=== PATIENT | female | born 1930 | race Caucasian/White ===

== ENCOUNTER 2016-05-31 09:18 | Inpatient (IN) | payer MEDICARE ==
[2016-05-31] MEDS ORDERED: NACL 0.9% 1000 ML 1,000 ML IV ONE (10:08)
--- NOTE | 2016-05-31 10:59 | XRay Report ---
Single view chest: History: Altered mental status/post sepsis. Findings: Marked cardiomegaly. Trachea is midline. Minimal bilateral pleural effusion. Linear density right lower lobe probably related to scarring or discoid atelectasis. Impression: Nonspecific findings. Early CHF cannot be excluded.
[2016-05-31 11:12] LABS: Bilirubin,Urine NEG (Negative); Blood,Urine MOD (Negative); Ketones,Urine NEG (Negative); Leukocyte Esterase,Urine TR (Negative); Mucus,Urine FEW /HPF; Nitrite,Urine POS (Negative); Urobilinogen,Urine < 2.0 mg/dL (<2.0)
--- NOTE | 2016-05-31 11:37 | Cat Scan Report ---
Cranial CT without contrast. History: Altered metal status. Findings: There is no evidence of acute hemorrhage or infarct. There is encephalomalacia/chronic infarct in the right temporal and parietal lobes. Cortical atrophy is present. There are hypodensities in the periventricular white matter bilaterally. Chronic lacunar infarcts are seen in the basal ganglia bilaterally. There are no masses or extra-axial collections. The posterior fossa is unremarkable for age. The bony calvarium is unremarkable. Impression: No acute findings. 2. Extensive chronic changes including large chronic right MCA territory infarct, multiple bilateral lacunar infarcts and chronic periventricular white matter ischemic changes.
[2016-05-31 11:49] LABS: INR 1.33 (0.87-1.13)
[2016-05-31 11:50] LABS: Partial Thromboplastin Time 26.6 Sec. (24.2-36.6)
[2016-05-31 11:58] LABS: Basophils % (Auto) 0.2 % (0.0-1.8); Mean Corpuscular HGB Conc 30 % (30-34); Mean Corpuscular Volume 83 fl (79-97); Red Blood Count 3.49 M/mm3 (3.65-5.03); White Blood Count 18.3 K/mm3 (4.5-11.0)
[2016-05-31 12:10] LABS: Hemoglobin 8.6 gm/dl (10.1-14.3)
[2016-05-31 12:11] LABS: Albumin 3.3 g/dL (3.9-5); Albumin/Globulin Ratio 0.9 %; Calcium 8.5 mg/dL (8.4-10.2); Chloride 102.8 mmol/L (98-107); Hematocrit 28.8 % (30.3-42.9); Mean Corpuscular Hemoglobin 25 pg (28-32); Potassium 4.4 mmol/L (3.6-5.0); Red Cell Distribution Width 21.3 % (13.2-15.2)
[2016-05-31 12:12] LABS: Platelet Count 205 K/mm3 (140-440)
[2016-05-31 12:21] LABS: Creatine Kinase 173 units/L (30-135)
--- NOTE | 2016-05-31 12:33 | Emergency Department Report ---
ED Altered Mental Status HPI - General Chief Complaint: Altered Mental Status Stated Complaint: NAUSEA/VOMITTING/GENERAL MALAISE Time Seen by Provider: 05/31/16 09:44 Source: EMS Mode of arrival: Stretcher Limitations: Language Barrier, Altered Mental Status - Related Data Home Medications Medication Instructions Recorded Confirmed Last Taken Dabigatran [Pradaxa] 150 mg PO BID 05/31/16 05/31/16 Unknown Diphenoxylate/Atropine 0.025 - 2.5 mg PO Q6HR 05/31/16 05/31/16 Unknown Losartan [Cozaar] 100 mg PO QDAY 05/31/16 05/31/16 Unknown Ondansetron [Zofran TAB] 4 mg PO Q8HR PRN 05/31/16 05/31/16 Unknown Previous Rx's Medication Instructions Recorded Last Taken Type Ondansetron [Zofran TAB] 4 mg PO Q8HR PRN #20 tablet 05/28/16 Unknown Rx Carvedilol [Coreg] 6.25 mg PO BID #60 tablet 06/06/16 Unknown Rx Famotidine [Pepcid] 20 mg PO BID #60 tablet 06/06/16 Unknown Rx Furosemide [Lasix TAB] 40 mg PO QDAY #7 tablet 06/06/16 Unknown Rx Losartan [Cozaar] 50 mg PO QDAY #30 tablet 06/06/16 Unknown Rx Potassium Chloride [Klor-Con] 20 meq PO DAILY #10 packet 06/06/16 Unknown Rx Simvastatin [Zocor TAB] 20 mg PO QHS #30 tablet 06/06/16 Unknown Rx Allergies Allergy/AdvReac Type Severity Reaction Status Date / Time No Known Allergies Allergy Unverified 05/31/16 10:04 ED Review of Systems ROS: Stated complaint: NAUSEA/VOMITTING/GENERAL MALAISE Other details as noted in HPI ED Past Medical Hx - Past Medical History Previous Medical History?: Yes Additional medical history: unable to assess - Surgical History Past Surgical History?: Yes Additional Surgical History: unable to assess - Social History Smoking Status: Unknown if ever smoked Substance Use Type: None - Medications Home Medications: Home Medications Medication Instructions Recorded Confirmed Last Taken Type Ondansetron [Zofran TAB] 4 mg PO Q8HR PRN #20 tablet 05/28/16 06/07/16 Unknown Rx Dabigatran [Pradaxa] 150 mg PO BID 05/31/16 05/31/16 Unknown History Diphenoxylate/Atropine 0.025 - 2.5 mg PO Q6HR 05/31/16 05/31/16 Unknown History Losartan [Cozaar] 100 mg PO QDAY 05/31/16 05/31/16 Unknown History Ondansetron [Zofran TAB] 4 mg PO Q8HR PRN 05/31/16 05/31/16 Unknown History Carvedilol [Coreg] 6.25 mg PO BID #60 tablet 06/06/16 Unknown Rx Famotidine [Pepcid] 20 mg PO BID #60 tablet 06/06/16 Unknown Rx Furosemide [Lasix TAB] 40 mg PO QDAY #7 tablet 06/06/16 Unknown Rx Losartan [Cozaar] 50 mg PO QDAY #30 tablet 06/06/16 Unknown Rx Potassium Chloride [Klor-Con] 20 meq PO DAILY #10 packet 06/06/16 Unknown Rx Simvastatin [Zocor TAB] 20 mg PO QHS #30 tablet 06/06/16 Unknown Rx ED Physical Exam - General Limitations: Language Barrier, Altered Mental Status General appearance: in no apparent distress, lethargic - Head Head exam: Present: atraumatic, normocephalic, normal inspection - Eye Eye exam: Present: normal appearance - ENT ENT exam: Present: mucous membranes moist - Neck Neck exam: Present: normal inspection - Respiratory Respiratory exam: Present: normal lung sounds bilaterally. Absent: respiratory distress - Cardiovascular Cardiovascular Exam: Present: regular rate, tachycardia, irregular rhythm. Absent: systolic murmur, diastolic murmur, rubs, gallop - Extremities Exam Extremities exam: Present: normal inspection - Back Exam Back exam: Present: normal inspection - Neurological Exam Neurological exam: Present: alert, oriented X3 - Skin Skin exam: Present: warm, dry, intact, normal color. Absent: rash ED Course Vital Signs 05/31/16 05/31/16 05/31/16 09:39 11:06 11:10 Temperature 98.4 F Pulse Rate 113 H 95 H Respiratory 22 21 22 Rate Blood Pressure 140/97 166/95 Blood Pressure 140/97 [Right] O2 Sat by Pulse 93 100 100 Oximetry 05/31/16 05/31/16 05/31/16 11:20 11:30 11:40 Temperature Pulse Rate Respiratory 22 24 23 Rate Blood Pressure 155/109 155/109 155/109 Blood Pressure [Right] O2 Sat by Pulse 100 99 100 Oximetry 05/31/16 05/31/16 05/31/16 11:50 12:00 12:10 Temperature Pulse Rate Respiratory 27 H 23 29 H Rate Blood Pressure 155/109 155/109 155/94 Blood Pressure [Right] O2 Sat by Pulse 100 100 100 Oximetry 05/31/16 05/31/16 05/31/16 12:20 12:30 12:40 Temperature Pulse Rate 101 H Respiratory 20 25 H 25 H Rate Blood Pressure 152/87 152/87 173/86 Blood Pressure [Right] O2 Sat by Pulse 99 100 95 Oximetry 05/31/16 05/31/16 05/31/16 12:50 13:00 13:10 Temperature Pulse Rate Respiratory 21 22 23 Rate Blood Pressure 182/92 182/92 174/100 Blood Pressure [Right] O2 Sat by Pulse 98 99 Oximetry 05/31/16 05/31/16 05/31/16 13:20 13:30 13:50 Temperature Pulse Rate 105 H Respiratory 24 19 31 H Rate Blood Pressure 179/92 179/92 172/111 Blood Pressure [Right] O2 Sat by Pulse 96 98 99 Oximetry 05/31/16 05/31/16 05/31/16 14:53 15:01 15:35 Temperature Pulse Rate 115 H Respiratory 26 H 27 H 22 Rate Blood Pressure 158/88 155/96 Blood Pressure [Right] O2 Sat by Pulse 98 99 99 Oximetry - Lab Data Result diagrams: 06/05/16 04:55 06/05/16 04:55 Lab Results 05/31/16 05/31/16 05/31/16 Range/Units 10:46 10:56 10:56 WBC (4.5-11.0) K/mm3 RBC (3.65-5.03) M/mm3 Hgb (10.1-14.3) gm/dl Hct (30.3-42.9) % MCV (79-97) fl MCH (28-32) pg MCHC (30-34) % RDW (13.2-15.2) % Plt Count (140-440) K/mm3 Lymph % (Auto) (13.4-35.0) % [place] % (Auto) (0.0-7.3) % Eos % (Auto) (0.0-4.3) % Baso % (Auto) (0.0-1.8) % Lymph # (1.2-5.4) K/mm3 [place] # (0.0-0.8) K/mm3 Eos # (0.0-0.4) K/mm3 Baso # (0.0-0.1) K/mm3 Seg Neutrophils % (40.0-70.0) % Seg Neutrophils # (1.8-7.7) K/mm3 PT 16.4 H (12.2-14.9) Sec. INR 1.33 H (0.87-1.13) APTT 26.6 (24.2-36.6) Sec. Sodium (137-145) mmol/L Potassium (3.6-5.0) mmol/L Chloride (98-107) mmol/L Carbon Dioxide (22-30) mmol/L Anion Gap mmol/L BUN (7-17) mg/dL Creatinine (0.7-1.2) mg/dL Estimated GFR ml/min BUN/Creatinine Ratio % Glucose (65-100) mg/dL Calcium (8.4-10.2) mg/dL Total Bilirubin (0.1-1.2) mg/dL AST (5-40) units/L ALT (7-56) units/L Alkaline Phosphatase (35-129) units/L Ammonia (25-60) umol/L Total Creatine Kinase (30-135) units/L Troponin T (0.00-0.029) ng/mL Total Protein (6.3-8.2) g/dL Albumin (3.9-5) g/dL Albumin/Globulin Ratio % TSH 0.869 (0.270-4.200) mlU/mL Urine Color [place] (Yellow) Urine Turbidity Clear (Clear) Urine pH 5.0 (5.0-7.0) Ur Specific [place] 1.023 (1.003-1.030) Urine Protein 30 mg/dl (Negative) mg/dL Urine Glucose (UA) Neg (Negative) mg/dL Urine Ketones Neg (Negative) mg/dL Urine Blood Mod (Negative) Urine Nitrite Pos (Negative) Urine Bilirubin Neg (Negative) Urine Urobilinogen < 2.0 (<2.0) mg/dL Ur Leukocyte Esterase Tr (Negative) Urine WBC (Auto) 6.0 (0.0-6.0) /HPF Urine RBC (Auto) 6.0 (0.0-6.0) /HPF Urine Mucus Few /HPF 05/31/16 05/31/16 05/31/16 Range/Units 11:41 11:41 11:41 WBC 18.3 H (4.5-11.0) K/mm3 RBC 3.49 L (3.65-5.03) M/mm3 Hgb 8.6 L (10.1-14.3) gm/dl Hct 28.8 L (30.3-42.9) % MCV 83 (79-97) fl MCH 25 L (28-32) pg MCHC 30 (30-34) % RDW 21.3 H (13.2-15.2) % Plt Count 205 (140-440) K/mm3 Lymph % (Auto) 7.9 L (13.4-35.0) % [place] % (Auto) 5.2 (0.0-7.3) % Eos % (Auto) 0.0 (0.0-4.3) % Baso % (Auto) 0.2 (0.0-1.8) % Lymph # 1.5 (1.2-5.4) K/mm3 [place] # 1.0 H (0.0-0.8) K/mm3 Eos # 0.0 (0.0-0.4) K/mm3 Baso # 0.0 (0.0-0.1) K/mm3 Seg Neutrophils % 86.7 H (40.0-70.0) % Seg Neutrophils # 15.8 H (1.8-7.7) K/mm3 PT (12.2-14.9) Sec. INR (0.87-1.13) APTT (24.2-36.6) Sec. Sodium 138 (137-145) mmol/L Potassium 4.4 (3.6-5.0) mmol/L Chloride 102.8 (98-107) mmol/L Carbon Dioxide 20 L (22-30) mmol/L Anion Gap 20 mmol/L BUN 18 H (7-17) mg/dL Creatinine 0.9 (0.7-1.2) mg/dL Estimated GFR 59 ml/min BUN/Creatinine Ratio 20.00 % Glucose 153 H (65-100) mg/dL Calcium 8.5 (8.4-10.2) mg/dL Total Bilirubin 1.0 (0.1-1.2) mg/dL AST 28 (5-40) units/L ALT 11 (7-56) units/L Alkaline Phosphatase 82 (35-129) units/L Ammonia (25-60) umol/L Total Creatine Kinase 173 H (30-135) units/L Troponin T < 0.010 (0.00-0.029) ng/mL Total Protein 7.0 (6.3-8.2) g/dL Albumin 3.3 L (3.9-5) g/dL Albumin/Globulin Ratio 0.9 % TSH (0.270-4.200) mlU/mL Urine Color (Yellow) Urine Turbidity (Clear) Urine pH (5.0-7.0) Ur Specific [place] (1.003-1.030) Urine Protein (Negative) mg/dL Urine Glucose (UA) (Negative) mg/dL Urine Ketones (Negative) mg/dL Urine Blood (Negative) Urine Nitrite (Negative) Urine Bilirubin (Negative) Urine Urobilinogen (<2.0) mg/dL Ur Leukocyte Esterase (Negative) Urine WBC (Auto) (0.0-6.0) /HPF Urine RBC (Auto) (0.0-6.0) /HPF Urine Mucus /HPF /11/09 Range/Units 11:41 WBC (4.5-11.0) K/mm3 RBC (3.65-5.03) M/mm3 Hgb (10.1-14.3) gm/dl Hct (30.3-42.9) % MCV (79-97) fl MCH (28-32) pg MCHC (30-34) % RDW (13.2-15.2) % Plt Count (140-440) K/mm3 Lymph % (Auto) (13.4-35.0) % [place] % (Auto) (0.0-7.3) % Eos % (Auto) (0.0-4.3) % Baso % (Auto) (0.0-1.8) % Lymph # (1.2-5.4) K/mm3 [place] # (0.0-0.8) K/mm3 Eos # (0.0-0.4) K/mm3 Baso # (0.0-0.1) K/mm3 Seg Neutrophils % (40.0-70.0) % Seg Neutrophils # (1.8-7.7) K/mm3 PT (12.2-14.9) Sec. INR (0.87-1.13) APTT (24.2-36.6) Sec. Sodium (137-145) mmol/L Potassium (3.6-5.0) mmol/L Chloride (98-107) mmol/L Carbon Dioxide (22-30) mmol/L Anion Gap mmol/L BUN (7-17) mg/dL Creatinine (0.7-1.2) mg/dL Estimated GFR ml/min BUN/Creatinine Ratio % Glucose (65-100) mg/dL Calcium (8.4-10.2) mg/dL Total Bilirubin (0.1-1.2) mg/dL AST (5-40) units/L ALT (7-56) units/L Alkaline Phosphatase (35-129) units/L Ammonia 20.0 L (25-60) umol/L Total Creatine Kinase (30-135) units/L Troponin T (0.00-0.029) ng/mL Total Protein (6.3-8.2) g/dL Albumin (3.9-5) g/dL Albumin/Globulin Ratio % TSH (0.270-4.200) mlU/mL Urine Color (Yellow) Urine Turbidity (Clear) Urine pH (5.0-7.0) Ur Specific [place] (1.003-1.030) Urine Protein (Negative) mg/dL Urine Glucose (UA) (Negative) mg/dL Urine Ketones (Negative) mg/dL Urine Blood (Negative) Urine Nitrite (Negative) Urine Bilirubin (Negative) Urine Urobilinogen (<2.0) mg/dL Ur Leukocyte Esterase (Negative) Urine WBC (Auto) (0.0-6.0) /HPF Urine RBC (Auto) (0.0-6.0) /HPF Urine Mucus /HPF - EKG Data -: EKG Interpreted by Me Rate: tachycardia, bradycardia When compared to previous EKG there are: previous EKG unavailable Interpretation: no acute changes Critical care attestation.: If time is entered above; I have spent that time in minutes in the direct care of this critically ill patient, excluding procedure time. ED Disposition Clinical Impression: Dehydration, Altered mental status Disposition: OP ADMITTED IP TO THIS HOSP Is pt being admited?: Yes Does the pt Need Aspirin: No Condition: Fair
--- NOTE | 2016-05-31 12:48 | Admit Criteria Form ---
Admission Criteria Documentation: MENTAL STATUS CHANGE Clinical Indications for Inpatient Care (Place 'X' for any and all applicable criteria): Ongoing inpatient care may be needed for ANY ONE of the following(1)(2)(3)(5)(6) : [X ]I. Suspected serious etiology (eg, medical disorder, TELECOMMUNICATOR event) of mental status change [ ]II. Danger to self or others not manageable at lower level of care [ ]III. Grave disability (eg, inability to perform self care necessary at lower level of care) [ ]IV. Agitation or inappropriate behavior interfering with care for primary condition (eg, attempting to discontinue lines or drains prematurely, unable to cooperate with respiratory care) [ ]V. Delirium [A] [D][E] as described by ANY ONE of the following(26): [ ]a) Delirium due to alcohol or sedative [F] withdrawal [ ]b) Delirium of uncertain etiology that has not responded to appropriate empiric treatment [ ]c) Delirium that prevents performance of a life-sustaining function (eg, feeding or hydrating oneself) [X ]. General contraindications and/or Inappropriate clinical situations for Observational Care in patients with Mental Status Change, when ANY ONE of the following is required: [X ]a) Prediction of prolongation of LOS based on ANY ONE of the following may be considered as a contraindication for observational care 2, 3, 4, 5, 6, 7, 8, 9, 10, 11 [X]i) Age > 65 yrs. [X ]ii) Patient arriving by ambulance [ ]iii) Patient with high acuity [ ]iv) Patient requiring vital sign monitoring [ ]v) Patient on IV medication [ ]b) Systolic blood pressures 180mmHg 3,12 [ ]c) Patient with altered mental status including delirium and other alteration of consciousness, (3) [ ]d) Patient whose discharge disposition will be to a fdc home or rehabilitation home should not be managed in Emergency Department Observation Unit. CMS rule requires 3 days hospital stay before such placement.3,13 [ ]e) Patient with failure to thrive due to broad array of etiologies 3,16,17 [ ]f) Inability to ambulate 3,14 Extended stay beyond goal length of stay for the primary condition may be needed until ALL of the following are present(3)(5): [ ]a) Underlying medical etiology of mental status change is absent, or has been established and adequately treated [ ]b) Danger to self or others is absent or manageable at lower level of care. [ ]c) Behavior crisis management, including physical or chemical restraints, is not required or available at lower level of car [ ]d) Substance or alcohol withdrawal is absent or manageable at lower level of care. [ ]e) Behavioral symptoms (eg, agitation, somnolence, inappropriate behavior) are absent, or are manageable at lower level of care. The original [facility] [employer] content created by [facility] [employer] has been revised. The portions of the content which have been revised are identified through the use of italic text or in bold, and [facility] has neither reviewed nor approved the modified material. All other unmodified content is copyright [facility]. Please see references footnoted in the original [facility] edition 2016 Admission Criteria Met: Yes
[2016-05-31] MEDS: ATIVAN IV PRN (23:59)
[2016-06-01] MEDS ORDERED: SODIUM CHLORIDE FLUSH SYRINGE 10 ML IV PRN (03:43)
[2016-06-01] MEDS ORDERED: TYLENOL #3 PO PRN (07:47)
[2016-06-01] MEDS ORDERED: NON-FORMULARY (Zolpidem Tartrate [Edluar Subl] 10 MG) SL PRN (07:47)
[2016-06-01] MEDS ORDERED: ZOFRAN PO PRN (07:47)
--- NOTE | 2016-06-01 07:51 | Event Note ---
Date: 05/31/16 See H/p in reports AMS CVA?? HTN A Fib on pradaxa Leukocytosis
--- NOTE | 2016-06-01 09:13 | History and Physical Report ---
CHIEF COMPLAINT: Altered mental status. HISTORY OF PRESENT ILLNESS: An 85-year-old female with language barrier, comes in for generalized weakness and nausea and vomiting. Much history could not be obtained and the patient in the bed, alert, but confused. The patient with altered sensorium. As per family, she may have weakness on the left side. PAST MEDICAL HISTORY: Significant for hypertension and atrial fibrillation. Questionable C. diff colitis as the patient is on metronidazole. PAST SURGICAL HISTORY: Unknown. SOCIAL HISTORY: Does not smoke. Obtained by sign language. FAMILY HISTORY: Unknown. REVIEW OF SYSTEMS: Significant for left side slight weakness present. Able to move all 4 extremities in the ER. Confused. No fever, no chills. Otherwise, review of systems is negative. Language barrier present. A 14-point review of system was done. PHYSICAL EXAMINATION: GENERAL: Elderly female lying in bed, alert, but confused. VITAL SIGNS: Blood pressure is 159/112, temperature is 97.7, pulse is 114, respiratory rate is 20, sats are 98%. HEENT: Unremarkable. No facial palsy. NECK: Supple, no lymphadenopathy, no thyromegaly. LUNGS: Clear to auscultation and percussion. Good air entry. CARDIOVASCULAR: S1, S2 heard. Irregular heart rate. No murmur. LUNGS: Clear to auscultation and percussion. ABDOMEN: Soft and benign. No hepatosplenomegaly. No guarding, no rigidity. Hernial orifices are normal. EXTREMITIES: Good pedal pulses. No pedal edema. CENTRAL NERVOUS SYSTEM: Alert, but confused. Able to move all 4 extremities. As per the family, there is some weakness on the left side. SKIN: Normal. LABORATORY DATA: Significant for white count of 18,300, H is 8.6 and 28.8, platelet count is 205,000. Protime is 16.4. INR is 1.33. Sodium is 138, potassium is 4.4, chloride is 102.8, BUN and creatinine 18 and 0.9. Lactic acid is 2.9. Total creatinine kinase is 173. Ammonia level 20. Albumin is 3.3. Urine is negative. CAT scan of the head shows extensive chronic changes including last chronic right MCA territory infarct. Multiple bilateral lacunar infarcts and chronic periventricular white matter ischemic changes. A chest x-ray shows nonspecific findings. Early CHF cannot be excluded. Linear intensity in the right lower lobe probably related to scarring or discoid atelectasis. ASSESSMENT AND PLAN: 1. Altered mental status, rule out cerebrovascular accident. The patient may be having left-sided weakness which has resolved. MRI, MRA, and carotid duplex scan and echocardiogram ordered. 2. Acute cerebrovascular accident versus transient ischemic attack. The patient moves all 4 extremities. Unclear about possible transient ischemic attack or acute cerebrovascular accident. Neurology consult requested. MRI, MRA, echocardiogram, and carotid duplex scan ordered. 3. Leukocytosis. Focus of infection not identified. Urine negative. Chest x-ray negative. No fever, no temperature. The patient is on metronidazole from home, unclear whether the patient has C. diff colitis. The patient to be started on IV Levaquin for broad spectrum coverage. We will defer to the hospitalist to change the antibiotics or stop the antibiotics. 4. Chronic atrial fibrillation. The EKG shows tachycardia . The patient on Pradaxa, which was continued. Unclear whether the patient has chronic AFib. 5. Hypertension. Continue losartan 100 mg daily. 6. Deep venous thrombosis prophylaxis. The patient on Pradaxa. SCDs for the time being. No Lovenox. JOB# [id number] VSM/NTS
[2016-06-01 09:39] LABS: Hematocrit 26.3 % (30.3-42.9); Hemoglobin 8.1 gm/dl (10.1-14.3); Mean Corpuscular HGB Conc 31 % (30-34); Mean Corpuscular Volume 80 fl (79-97); Platelet Count 217 K/mm3 (140-440); Red Blood Count 3.28 M/mm3 (3.65-5.03); White Blood Count 12.3 K/mm3 (4.5-11.0)
[2016-06-01 09:41] LABS: Mean Corpuscular Hemoglobin 25 pg (28-32); Red Cell Distribution Width 21.3 % (13.2-15.2)
[2016-06-01 09:48] LABS: Anion Gap 18 mmol/L; Blood Urea Nitrogen 14 mg/dL (7-17); Calcium 8.3 mg/dL (8.4-10.2); Carbon Dioxide 22 mmol/L (22-30); Chloride 103.6 mmol/L (98-107); Glucose 122 mg/dL (65-100); Potassium 4.3 mmol/L (3.6-5.0); Sodium 139 mmol/L (137-145)
[2016-06-01] MEDS ORDERED: LOVENOX SUB-Q SCH (10:00)
[2016-06-01] MEDS ORDERED: NON-FORMULARY (Losartan [Cozaar] 100 MG) PO SCH (10:00)
[2016-06-01 10:18] LABS: Anisocytosis 2+; Blastocytes % (Manual) 0 %; Hypochromasia 1+
[2016-06-01 10:19] LABS: Diff Status Complete; Giant Platelets Rare; Large Platelets Few; Platelet Estimate Cons; Polychromasia Rare
--- NOTE | 2016-06-01 10:35 | Consultation ---
History of Present Illness Consult date: 06/01/16 Requesting physician: MATHIEU MUSA Reason for Consult: AMS/TIA Chief complaint: AMS limits direct hx History of present illness: 85 YO F Hx Afib on Pradaxa a/w AMS. Last well 05/27 but was noted to be weak all over, confused and vomiting on 05/28. She was taken to ED and D/C. They represented with family d/t persistent sx. There are no clear aggravating, relieving or temporal factors. Severity limits ADLs. Past History Past Medical History: atrial fib, hypertension Past Surgical History: No surgical history Social history: single, Lives alone. denies: smoking, alcohol abuse, prescription drug abuse, IV drug use Family history: no significant family history Medications and Allergies Allergies Allergy/AdvReac Type Severity Reaction Status Date / Time No Known Allergies Allergy Unverified 05/31/16 10:04 Home Medications Medication Instructions Recorded Confirmed Last Taken Type Acetaminophen/Codeine [Tylenol #3] 1 tab PO Q6H PRN 05/31/16 05/31/16 Unknown History Dabigatran [Pradaxa] 150 mg PO BID 05/31/16 05/31/16 Unknown History Diphenoxylate/Atropine 0.025 - 2.5 mg PO Q6HR 05/31/16 05/31/16 Unknown History Losartan [Cozaar] 100 mg PO QDAY 05/31/16 05/31/16 Unknown History Ondansetron [Zofran TAB] 4 mg PO Q8HR PRN 05/31/16 05/31/16 Unknown History Potassium Chloride [Klor-Con] 20 meq PO TID 05/31/16 05/31/16 Unknown History Zolpidem Tartrate [Edluar SUBL] 10 mg SL QHS PRN 05/31/16 05/31/16 Unknown History metroNIDAZOLE 500 mg PO QDAY 05/31/16 05/31/16 Unknown History Active Meds: Active Medications Acetaminophen/Codeine Phosphate (Tylenol #3) 1 tab PO Q6H PRN PRN Reason: Pain, Moderate (4-6) Dabigatran (Pradaxa) 150 mg PO BID JUNIOR Levofloxacin/Dextrose (Levaquin 750mg/150ml) 750 mg in 150 mls @ 100 mls/hr IV Q24HR JUNIOR PRN Reason: Protocol Influenza Virus Vaccine Quadrival (Fluarix Quad [id number](36 Mos+)) 60 mcg IM .ONCE ONE Stop: 06/01/16 12:01 Lorazepam (Ativan) 1 mg IV Q6H PRN PRN Reason: Agitation Last Admin: 05/31/16 23:59 Dose: 1 mg Losartan Potassium (Cozaar) 100 mg PO QDAY JUNIOR Ondansetron HCl (Zofran) 4 mg PO Q8HR PRN PRN Reason: Nausea Pneumococcal Polyvalent Vaccine (Pneumovax 23) 0.5 ml IM .ONCE ONE Stop: 06/01/16 12:01 Simvastatin (Zocor) 20 mg PO QHS JUNIOR Sodium Chloride (Sodium Chloride Flush Syringe 10 Ml) 10 ml IV PRN PRN PRN Reason: LINE FLUSH Zolpidem Tartrate (Ambien) 10 mg PO QHS PRN PRN Reason: Insomnia Review of Systems ROS unobtainable: due to mental status Physical Examination - Vital Signs Vital Signs: Vital Signs Temp Pulse Resp BP Pulse Ox 98.4 F 113 H 22 140/97 93 05/31/16 09:39 05/31/16 09:39 05/31/16 09:39 05/31/16 09:39 05/31/16 09:39 - Constitutional General appearance: uncomfortable, acutely ill - EENT EENT: Present: ATNC, PERRL, mucous membranes moist, hearing intact, vision intact - Respiratory Respiratory: Present: chest non-tender, normal breath sounds, no respiratory distress - Cardiovascular Cardiovascular: Present: regular rate Extremities: Present: no clubbing, cyanosis, no inflammation, no ischemia or petechiae - Gastrointestinal Gastrointestinal: Present: normoactive bowel sounds, non-distended - Integumentary Integumentary: Present: normal - Neurologic Cranial nerve examination: PERRL, EOMI, face symmetric, tongue midline, intact, intact shoulder shrug, intact cough reflex, Intact Vestibulo-ocular r, intact corneal reflex, other (L visual field cut decr blink to threat) Speech examination: other (paucity of speech but follows commands) Sensorimotor examination: other (localizes pain throughout not cooperative for more detailed motor/sensory exam.) Motor examination - right side: 4/5: biceps, triceps, wrist flexion, wrist extension, water and sewer systems superintendent, hip flexors, knee extensors, dorsiflexion, toe extension (EHL) , plantarflexion Motor examination - left side: 4/5: biceps, triceps, wrist flexion, wrist extension, water and sewer systems superintendent, hip flexors, knee extensors, dorsiflexion, toe extension (EHL) , plantarflexion Detailed sensory examination: intact, pain Reflex and gait examination: Babinski's sign (on L) Reflexes: 3+: ankle (on L), bicep, knee, tricep - Musculoskeletal Musculoskeletal: Present: no fluid collection, no pain, normal range of motion - Psychiatric Psychiatric: Present: mood/affect appropriate Results - Laboratory Findings CBC and BMP: 06/01/16 08:21 06/01/16 08:21 Abnormal Lab Findings: Abnormal Labs 05/31/16 05/31/16 06/01/16 13:02 20:40 05:45 WBC RBC Hgb Hct MCH RDW Seg Neuts % (Manual) Lymphocytes % (Manual) Seg Neutrophils # Man Lymphocytes # (Manual) Glucose POC Glucose 166 H 131 H Lactic Acid 2.9 H* Calcium 06/01/16 06/01/16 08:21 08:21 WBC 12.3 H RBC 3.28 L Hgb 8.1 L Hct 26.3 L MCH 25 L RDW 21.3 H Seg Neuts % (Manual) 87.0 H Lymphocytes % (Manual) 8.0 L Seg Neutrophils # Man 10.7 H Lymphocytes # (Manual) 1.0 L Glucose 122 H POC Glucose Lactic Acid Calcium 8.3 L Assessment and Plan 85 YO F Hx Afib on Pradaxa CTH revealing chronic R inferior division stroke a/w AMS since 05/27. Pt has impaired level of arousal and concentration but does follow basic commands and localize pain throughout suggesting encephalopathy. Will eval for stroke per consult request. CDs neg. TSH/NH4 neg. Plan and Recommendation: 1. No indication for pharmacologic thrombolysis with IV tPA or mechanical thrombectomy due to last known normal > 6 hrs from presentation. Current NIHSS 15. 2. Telemetry bed w/ Q4 hour neuro checks 3. Brain imaging: MRI Brain w/o Sarthak Stroke Protocol 4. Cont Infectious work up/medical management for UTI, PNA, cellulitis, bacteremia, etc. 5. Avoid hyponatremia, hypo/hyper-calcemia, hypo/hyperglycemia, acidosis, hypoxia/hypoxemia, hypercarbia/hypercapnia 6. Avoid institution of any psychoactive medications (e.g. antihistamines, anticholinergics, BZD, hypnotics, opiates) as able unless low doses of low potency antipsychotic needed for behavioral issues complicating medical care 7. If MRI Brain confirms infarct: A. Vascular Imaging: MRA Head w/o Sarthak & MRA Neck w/ Sarthak Stroke Protocol OR CTA Head/Neck w/ Contrast OR Bilateral Carotid Duplex U/S B. TTE to eval for possible cardiac source of embolism C. Serum Labs: HgA1c, LDL 8. Can lower MAPs by 10-15% daily to reach goal SBP 120-160 as outside permissive HTN window. 9. Secondary stroke prevention: Cont Pradaxa therapeutic AC. Upgrade to full dose statin therapy (Crestor 20mg or 40mg OR Lipitor 40mg or 80mg Daily OR Zocor 40mg QDay) for goal LDL < 70. 10. F/E/N: isotonic IVF prn, prn replete, bedside speech/swallow eval 11. DVT Prophylaxis 12. Stroke education, PT/OT/Speech Therapy consults, CM evaluation 13. For any changes in neurologic status, pls obtain STAT CTH w/o contrast and call neurology
[2016-06-01] MEDS: COZAAR PO SCH (11:02)
[2016-06-01] MEDS: LEVAQUIN 750MG/150ML 750 MG/150 ML BAG IV SCH (11:02)
[2016-06-01] MEDS ORDERED: PNEUMOVAX 23 IM ONE (12:00)
[2016-06-01] MEDS ORDERED: FLUARIX QUAD 2016-2017(36 MOS+) IM ONE (12:00)
[2016-06-01] MEDS: PRADAXA PO SCH ×2 (13:45→23:15)
--- NOTE | 2016-06-01 15:49 | Progress Note ---
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 Acute encephalopathy, likely due to acute CVA Leukocytosis, no source of acute infection, likely due to stress Chronic atrial fibrillation Hypertension, uncontrolled Plan: Noted MRI result will follow 2d echo PT/OT/speech eval Monitor BP, adjust BP meds as needed cont pradaxa family requested SNF placement History Interval history: Pt seen and examined, updated family at bed side Pt unable to provide any history per daughter in law she was fully functional before last Sunday Hospitalist Physical - Physical exam Narrative exam: GENERAL: elderly female lying on bed appeared to be in no discomfort. appears to be sleeping HEENT: Normocephalic. Atraumatic. No conjunctival congestion or icterus. Patient has moist mucous membranes. NECK: Supple. Trachea midline. CHEST/LUNGS: Clear to auscultated bilaterally, breathing nonlabored. No wheezes crackles or rhonchi. HEART/CARDIOVASCULAR: Regular in rate and rhythm. S1 and S2 positive. ABDOMEN: Abdomen is soft, nontender. Patient has normal bowel sounds. SKIN: There is no rash. Warm and dry. NEURO: move all extremity MUSCULOSKELETAL: No joint effusion or tenderness. EXTRIMITY: No edema, no cyanosis or clubbing. - Constitutional Vitals: Temp Pulse Resp BP Pulse Ox 98 F 120 H 16 150/98 98 06/01/16 08:00 06/01/16 08:00 06/01/16 08:00 06/01/16 08:00 06/01/16 08:00 Results - Labs CBC & Chem 7: 06/01/16 08:21 06/01/16 08:21 Labs: Laboratory Last Values WBC 12.3 K/mm3 (4.5-11.0) H 06/01/16 08:21 RBC 3.28 M/mm3 (3.65-5.03) L 06/01/16 08:21 Hgb 8.1 gm/dl (10.1-14.3) L 06/01/16 08:21 Hct 26.3 % (30.3-42.9) L 06/01/16 08:21 MCV 80 fl (79-97) D 06/01/16 08:21 MCH 25 pg (28-32) L 06/01/16 08:21 MCHC 31 % (30-34) 06/01/16 08:21 RDW 21.3 % (13.2-15.2) H 06/01/16 08:21 Plt Count 217 K/mm3 (140-440) 06/01/16 08:21 Lymph % (Auto) 7.9 % (13.4-35.0) L 05/31/16 11:41 [place] % (Auto) 5.2 % (0.0-7.3) 05/31/16 11:41 Eos % (Auto) 0.0 % (0.0-4.3) 05/31/16 11:41 Baso % (Auto) 0.2 % (0.0-1.8) 05/31/16 11:41 Lymph # 1.5 K/mm3 (1.2-5.4) 05/31/16 11:41 [place] # 1.0 K/mm3 (0.0-0.8) H 05/31/16 11:41 Eos # 0.0 K/mm3 (0.0-0.4) 05/31/16 11:41 Baso # 0.0 K/mm3 (0.0-0.1) 05/31/16 11:41 Add Manual Diff Complete 06/01/16 08:21 Total Counted 100 06/01/16 08:21 Seg Neutrophils % 86.7 % (40.0-70.0) H 05/31/16 11:41 Seg Neuts % (Manual) 87.0 % (40.0-70.0) H 06/01/16 08:21 Band Neutrophils % 0 % 06/01/16 08:21 Lymphocytes % (Manual) 8.0 % (13.4-35.0) L 06/01/16 08:21 Reactive Lymphs % (Man) 0 % 06/01/16 08:21 Monocytes % (Manual) 3.0 % (0.0-7.3) 06/01/16 08:21 Eosinophils % (Manual) 1.0 % (0.0-4.3) 06/01/16 08:21 Basophils % (Manual) 1.0 % (0.0-1.8) 06/01/16 08:21 Metamyelocytes % 0 % 06/01/16 08:21 Myelocytes % 0 % 06/01/16 08:21 Promyelocytes % 0 % 06/01/16 08:21 Blast Cells % 0 % 06/01/16 08:21 Nucleated RBC % Not Reportable 06/01/16 08:21 Seg Neutrophils # 15.8 K/mm3 (1.8-7.7) H 05/31/16 11:41 Seg Neutrophils # Man 10.7 K/mm3 (1.8-7.7) H 06/01/16 08:21 Band Neutrophils # 0.0 K/mm3 06/01/16 08:21 Lymphocytes # (Manual) 1.0 K/mm3 (1.2-5.4) L 06/01/16 08:21 Abs React Lymphs (Man) 0.0 K/mm3 06/01/16 08:21 Monocytes # (Manual) 0.4 K/mm3 (0.0-0.8) 06/01/16 08:21 Eosinophils # (Manual) 0.1 K/mm3 (0.0-0.4) 06/01/16 08:21 Basophils # (Manual) 0.1 K/mm3 (0.0-0.1) 06/01/16 08:21 Metamyelocytes # 0.0 K/mm3 06/01/16 08:21 Myelocytes # 0.0 K/mm3 06/01/16 08:21 Promyelocytes # 0.0 K/mm3 06/01/16 08:21 Blast Cells # 0.0 K/mm3 06/01/16 08:21 WBC Morphology Not Reportable 06/01/16 08:21 Hypersegmented Neuts Not Reportable 06/01/16 08:21 Hyposegmented Neuts Not Reportable 06/01/16 08:21 Hypogranular Neuts Not Reportable 06/01/16 08:21 Smudge Cells Not Reportable 06/01/16 08:21 Toxic Granulation Not Reportable 06/01/16 08:21 Toxic Vacuolation Not Reportable 06/01/16 08:21 Dohle Bodies Not Reportable 06/01/16 08:21 Pelger-Huet Anomaly Not Reportable 06/01/16 08:21 Rene Rods Not Reportable 06/01/16 08:21 Platelet Estimate Cons 06/01/16 08:21 Clumped Platelets Not Reportable 06/01/16 08:21 Plt Clumps, EDTA Not Reportable 06/01/16 08:21 Large Platelets Few 06/01/16 08:21 Giant Platelets Rare 06/01/16 08:21 Platelet Satelliting Not Reportable 06/01/16 08:21 Plt Morphology Comment Not Reportable 06/01/16 08:21 RBC Morphology Not Reportable 06/01/16 08:21 Dimorphic RBCs Not Reportable 06/01/16 08:21 Polychromasia Rare 06/01/16 08:21 Hypochromasia 1+ 06/01/16 08:21 Poikilocytosis Not Reportable 06/01/16 08:21 Anisocytosis 2+ 06/01/16 08:21 Microcytosis Not Reportable 06/01/16 08:21 Macrocytosis Not Reportable 06/01/16 08:21 Spherocytes Not Reportable 06/01/16 08:21 Pappenheimer Bodies Not Reportable 06/01/16 08:21 Sickle Cells Not Reportable 06/01/16 08:21 Target Cells Not Reportable 06/01/16 08:21 Tear Drop Cells Not Reportable 06/01/16 08:21 Ovalocytes Not Reportable 06/01/16 08:21 Helmet Cells Not Reportable 06/01/16 08:21 [place] Bodies Not Reportable 06/01/16 08:21 [place] Rings Not Reportable 06/01/16 08:21 [place] Cells Not Reportable 06/01/16 08:21 Bite Cells Not Reportable 06/01/16 08:21 Crenated Cell Not Reportable 06/01/16 08:21 Elliptocytes Not Reportable 06/01/16 08:21 Acanthocytes (Spur) Not Reportable 06/01/16 08:21 Rouleaux Not Reportable 06/01/16 08:21 Hemoglobin C Crystals Not Reportable 06/01/16 08:21 Schistocytes Not Reportable 06/01/16 08:21 Malaria parasites Not Reportable 06/01/16 08:21 Ajay Bodies Not Reportable 06/01/16 08:21 Hem Pathologist Commnt No 06/01/16 08:21 PT 16.4 Sec. (12.2-14.9) H 05/31/16 10:56 INR 1.33 (0.87-1.13) H 05/31/16 10:56 APTT 26.6 Sec. (24.2-36.6) 05/31/16 10:56 Sodium 139 mmol/L (137-145) 06/01/16 08:21 Potassium 4.3 mmol/L (3.6-5.0) 06/01/16 08:21 Chloride 103.6 mmol/L (98-107) 06/01/16 08:21 Carbon Dioxide 22 mmol/L (22-30) 06/01/16 08:21 Anion Gap 18 mmol/L 06/01/16 08:21 BUN 14 mg/dL (7-17) 06/01/16 08:21 Creatinine 0.7 mg/dL (0.7-1.2) 06/01/16 08:21 Estimated GFR > 60 ml/min 06/01/16 08:21 BUN/Creatinine Ratio 20.00 % 06/01/16 08:21 Glucose 122 mg/dL (65-100) H 06/01/16 08:21 POC Glucose 131 (70-105) H 06/01/16 05:45 Lactic Acid 2.9 mmol/L (0.7-2.0) H* 05/31/16 13:02 Calcium 8.3 mg/dL (8.4-10.2) L 06/01/16 08:21 Total Bilirubin 1.0 mg/dL (0.1-1.2) 05/31/16 11:41 AST 28 units/L (5-40) 05/31/16 11:41 ALT 11 units/L (7-56) 05/31/16 11:41 Alkaline Phosphatase 82 units/L (35-129) 05/31/16 11:41 Ammonia 20.0 umol/L (25-60) L 05/31/16 11:41 Total Creatine Kinase 173 units/L (30-135) H 05/31/16 11:41 Troponin T < 0.010 ng/mL (0.00-0.029) 05/31/16 11:41 Total Protein 7.0 g/dL (6.3-8.2) 05/31/16 11:41 Albumin 3.3 g/dL (3.9-5) L 05/31/16 11:41 Albumin/Globulin Ratio 0.9 % 05/31/16 11:41 TSH 0.869 mlU/mL (0.270-4.200) 05/31/16 10:56 Urine Color [place] (Yellow) 05/31/16 10:46 Urine Turbidity Clear (Clear) 05/31/16 10:46 Urine pH 5.0 (5.0-7.0) 05/31/16 10:46 Ur Specific [place] 1.023 (1.003-1.030) 05/31/16 10:46 Urine Protein 30 mg/dl mg/dL (Negative) 05/31/16 10:46 Urine Glucose (UA) Neg mg/dL (Negative) 05/31/16 10:46 Urine Ketones Neg mg/dL (Negative) 05/31/16 10:46 Urine Blood Mod (Negative) 05/31/16 10:46 Urine Nitrite Pos (Negative) 05/31/16 10:46 Urine Bilirubin Neg (Negative) 05/31/16 10:46 Urine Urobilinogen < 2.0 mg/dL (<2.0) 05/31/16 10:46 Ur Leukocyte Esterase Tr (Negative) 05/31/16 10:46 Urine WBC (Auto) 6.0 /HPF (0.0-6.0) 05/31/16 10:46 Urine RBC (Auto) 6.0 /HPF (0.0-6.0) 05/31/16 10:46 Urine Mucus Few /HPF 05/31/16 10:46
--- NOTE | 2016-06-01 16:23 | Magnetic Resonance Report ---
MRI BRAIN WITHOUT CONTRAST: 06/01/16 CLINICAL: Stroke. COMPARISON: 05/31/16 CT Head TECHNIQUE: Axial diffusion, T1, T2, FLAIR, gradient echo T2*, and sagittal T1 sequences on a 1.5 Mariam magnet. FINDINGS: The quality of the examination is degraded by patient motion throughout the exam. A large area of restricted diffusion involves the entire right temporal lobe and a small portion of the posterior right parietal lobe. This area of restricted diffusion correlates with the hypodensity on CT. No evidence of hemorrhage. No other restricted diffusion. There is mild mass effect with sulcal effacement but no midline shift. The ventricles and sulci are large but commensurate with age. No extra-axial collection. The brainstem and cerebellum are normal. Vascular flow voids are not well evaluated due to motion on the T2 sequences. Normal sinuses. The orbits, and soft tissues are grossly normal. Normal calvarium and skull base. IMPRESSION: A large late subacute nonhemorrhagic right temporal lobe and right parietal lobe infarct. Mild mass effect but no midline shift. Global cortical atrophy. No evidence of hemorrhage.
[2016-06-01] MEDS: ZOCOR PO SCH (23:15)
[2016-06-01] MEDS: AMBIEN PO PRN (23:16)
[2016-06-01] MEDS: ATIVAN IV PRN (23:16)
[2016-06-02 08:35] LABS: Hematocrit 26.7 % (30.3-42.9); Hemoglobin 8.3 gm/dl (10.1-14.3); Mean Corpuscular HGB Conc 31 % (30-34); Mean Corpuscular Volume 80 fl (79-97); Platelet Count 223 K/mm3 (140-440); Red Blood Count 3.33 M/mm3 (3.65-5.03); White Blood Count 9.1 K/mm3 (4.5-11.0)
[2016-06-02 08:42] LABS: Mean Corpuscular Hemoglobin 25 pg (28-32)
[2016-06-02] MEDS: COZAAR PO SCH (10:05)
[2016-06-02] MEDS: LEVAQUIN 750MG/150ML 750 MG/150 ML BAG IV SCH (10:06)
[2016-06-02] MEDS: PRADAXA PO SCH ×2 (12:37→22:22)
--- NOTE | 2016-06-02 14:06 | Progress Note ---
Assessment and Plan 1. Subacute right subacute temporal and parietal ischemic infarcts. Probably thrombus. 2. Head and neck MRA. Echo. 3. A-fib. Continue anticoagulant. 4. HTN. Controlled. Medicine. She has subacute ischemic infarcts. Can optimized HTN. 5. Treat risk factors of CVA. 6. Dyslipidemia. Statin. 7. Leukocytosis and infection, probably UTI. Antibiotics. 8. Pending A1c. 9. OT/PT, rehab. speech and stroke education. 10. Probably encephalopathy. EEG. 11. Plan discussed with her nurse. 12. Dr. Luis Prasad will follow up with you. Subjective Date of service: 06/02/16 Principal diagnosis: CVA. Interval history: Per her nurse, she is more alert. No clinical seizures, not followed commands. Objective - Vital Sign Vital Signs - 12hr 06/02/16 08:00 Temperature 98 F Pulse Rate [ 100 H Right Radial] Respiratory 18 Rate Blood Pressure 170/94 [Right Arm] O2 Sat by Pulse 96 Oximetry - Respiratory Respiratory: normal breath sounds, no respiratory distress, other (No shortness of breathing.) - Cardiovascular Cardiovascular: no murmurs - Gastrointestinal Gastrointestinal: soft, non-distended - Neurologic Cranial nerve examination: other (Not followed commands. Face symmetric. Left side neglect.) Speech examination: intact Detailed motor examination: other (Moved all extremities.) Detailed sensory examination: other (Can't evaluate due to not followed commnds. ) Reflex and gait examination: other (DTRs 0, symmetric, toes down going bilaterrally.) - Laboratory Findings CBC and BMP: 06/02/16 08:14 06/01/16 08:21 Abnormal Lab Findings: Abnormal Labs 05/31/16 05/31/16 06/01/16 13:02 20:40 05:45 WBC RBC Hgb Hct MCH RDW Seg Neuts % (Manual) Lymphocytes % (Manual) Seg Neutrophils # Man Lymphocytes # (Manual) Glucose POC Glucose 166 H 131 H Lactic Acid 2.9 H* Calcium 06/01/16 06/01/16 06/02/16 08:21 08:21 08:14 WBC 12.3 H RBC 3.28 L 3.33 L Hgb 8.1 L 8.3 L Hct 26.3 L 26.7 L MCH 25 L 25 L RDW 21.3 H 21.0 H Seg Neuts % (Manual) 87.0 H Lymphocytes % (Manual) 8.0 L Seg Neutrophils # Man 10.7 H Lymphocytes # (Manual) 1.0 L Glucose 122 H POC Glucose Lactic Acid Calcium 8.3 L
--- NOTE | 2016-06-02 15:45 | Progress Note ---
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 Acute encephalopathy, likely due to acute CVA Leukocytosis, no source of acute infection, likely due to stress Chronic atrial fibrillation Hypertension, uncontrolled Plan: Noted MRI result 2d echo showed preserved EF PT/OT/speech eval Monitor BP, adjust BP meds as needed cont pradaxa family requested SNF placement ordered EEG by neurology History Interval history: Pt seen and examined, updated family at bed side Pt unable to provide any history per daughter in law she was fully functional before last Sunday SHE IS much alert and awake today Hospitalist Physical - Physical exam Narrative exam: GENERAL: elderly female lying on bed appeared to be in no discomfort. HEENT: Normocephalic. Atraumatic. No conjunctival congestion or icterus. Patient has moist mucous membranes. NECK: Supple. Trachea midline. CHEST/LUNGS: Clear to auscultated bilaterally, breathing nonlabored. No wheezes crackles or rhonchi. HEART/CARDIOVASCULAR: Regular in rate and rhythm. S1 and S2 positive. ABDOMEN: Abdomen is soft, nontender. Patient has normal bowel sounds. SKIN: There is no rash. Warm and dry. NEURO: move all extremity MUSCULOSKELETAL: No joint effusion or tenderness. EXTRIMITY: No edema, no cyanosis or clubbing. - Constitutional Vitals: Temp Pulse Resp BP Pulse Ox 98 F 100 H 18 170/94 96 06/02/16 08:00 06/02/16 08:00 06/02/16 08:00 06/02/16 08:00 06/02/16 08:00 Results - Labs CBC & Chem 7: 06/02/16 08:14 06/01/16 08:21 Labs: Laboratory Last Values WBC 9.1 K/mm3 (4.5-11.0) 06/02/16 08:14 RBC 3.33 M/mm3 (3.65-5.03) L 06/02/16 08:14 Hgb 8.3 gm/dl (10.1-14.3) L 06/02/16 08:14 Hct 26.7 % (30.3-42.9) L 06/02/16 08:14 MCV 80 fl (79-97) 06/02/16 08:14 MCH 25 pg (28-32) L 06/02/16 08:14 MCHC 31 % (30-34) 06/02/16 08:14 RDW 21.0 % (13.2-15.2) H 06/02/16 08:14 Plt Count 223 K/mm3 (140-440) 06/02/16 08:14 Lymph % (Auto) 7.9 % (13.4-35.0) L 05/31/16 11:41 [place] % (Auto) 5.2 % (0.0-7.3) 05/31/16 11:41 Eos % (Auto) 0.0 % (0.0-4.3) 05/31/16 11:41 Baso % (Auto) 0.2 % (0.0-1.8) 05/31/16 11:41 Lymph # 1.5 K/mm3 (1.2-5.4) 05/31/16 11:41 [place] # 1.0 K/mm3 (0.0-0.8) H 05/31/16 11:41 Eos # 0.0 K/mm3 (0.0-0.4) 05/31/16 11:41 Baso # 0.0 K/mm3 (0.0-0.1) 05/31/16 11:41 Add Manual Diff Complete 06/01/16 08:21 Total Counted 100 06/01/16 08:21 Seg Neutrophils % 86.7 % (40.0-70.0) H 05/31/16 11:41 Seg Neuts % (Manual) 87.0 % (40.0-70.0) H 06/01/16 08:21 Band Neutrophils % 0 % 06/01/16 08:21 Lymphocytes % (Manual) 8.0 % (13.4-35.0) L 06/01/16 08:21 Reactive Lymphs % (Man) 0 % 06/01/16 08:21 Monocytes % (Manual) 3.0 % (0.0-7.3) 06/01/16 08:21 Eosinophils % (Manual) 1.0 % (0.0-4.3) 06/01/16 08:21 Basophils % (Manual) 1.0 % (0.0-1.8) 06/01/16 08:21 Metamyelocytes % 0 % 06/01/16 08:21 Myelocytes % 0 % 06/01/16 08:21 Promyelocytes % 0 % 06/01/16 08:21 Blast Cells % 0 % 06/01/16 08:21 Nucleated RBC % Not Reportable 06/01/16 08:21 Seg Neutrophils # 15.8 K/mm3 (1.8-7.7) H 05/31/16 11:41 Seg Neutrophils # Man 10.7 K/mm3 (1.8-7.7) H 06/01/16 08:21 Band Neutrophils # 0.0 K/mm3 06/01/16 08:21 Lymphocytes # (Manual) 1.0 K/mm3 (1.2-5.4) L 06/01/16 08:21 Abs React Lymphs (Man) 0.0 K/mm3 06/01/16 08:21 Monocytes # (Manual) 0.4 K/mm3 (0.0-0.8) 06/01/16 08:21 Eosinophils # (Manual) 0.1 K/mm3 (0.0-0.4) 06/01/16 08:21 Basophils # (Manual) 0.1 K/mm3 (0.0-0.1) 06/01/16 08:21 Metamyelocytes # 0.0 K/mm3 06/01/16 08:21 Myelocytes # 0.0 K/mm3 06/01/16 08:21 Promyelocytes # 0.0 K/mm3 06/01/16 08:21 Blast Cells # 0.0 K/mm3 06/01/16 08:21 WBC Morphology Not Reportable 06/01/16 08:21 Hypersegmented Neuts Not Reportable 06/01/16 08:21 Hyposegmented Neuts Not Reportable 06/01/16 08:21 Hypogranular Neuts Not Reportable 06/01/16 08:21 Smudge Cells Not Reportable 06/01/16 08:21 Toxic Granulation Not Reportable 06/01/16 08:21 Toxic Vacuolation Not Reportable 06/01/16 08:21 Dohle Bodies Not Reportable 06/01/16 08:21 Pelger-Huet Anomaly Not Reportable 06/01/16 08:21 Rene Rods Not Reportable 06/01/16 08:21 Platelet Estimate Cons 06/01/16 08:21 Clumped Platelets Not Reportable 06/01/16 08:21 Plt Clumps, EDTA Not Reportable 06/01/16 08:21 Large Platelets Few 06/01/16 08:21 Giant Platelets Rare 06/01/16 08:21 Platelet Satelliting Not Reportable 06/01/16 08:21 Plt Morphology Comment Not Reportable 06/01/16 08:21 RBC Morphology Not Reportable 06/01/16 08:21 Dimorphic RBCs Not Reportable 06/01/16 08:21 Polychromasia Rare 06/01/16 08:21 Hypochromasia 1+ 06/01/16 08:21 Poikilocytosis Not Reportable 06/01/16 08:21 Anisocytosis 2+ 06/01/16 08:21 Microcytosis Not Reportable 06/01/16 08:21 Macrocytosis Not Reportable 06/01/16 08:21 Spherocytes Not Reportable 06/01/16 08:21 Pappenheimer Bodies Not Reportable 06/01/16 08:21 Sickle Cells Not Reportable 06/01/16 08:21 Target Cells Not Reportable 06/01/16 08:21 Tear Drop Cells Not Reportable 06/01/16 08:21 Ovalocytes Not Reportable 06/01/16 08:21 Helmet Cells Not Reportable 06/01/16 08:21 Maldon[place] Bodies Not Reportable 06/01/16 08:21 [place] Rings Not Reportable 06/01/16 08:21 Ric Cells Not Reportable 06/01/16 08:21 Bite Cells Not Reportable 06/01/16 08:21 Crenated Cell Not Reportable 06/01/16 08:21 Elliptocytes Not Reportable 06/01/16 08:21 Acanthocytes (Spur) Not Reportable 06/01/16 08:21 Rouleaux Not Reportable 06/01/16 08:21 Hemoglobin C Crystals Not Reportable 06/01/16 08:21 Schistocytes Not Reportable 06/01/16 08:21 Malaria parasites Not Reportable 06/01/16 08:21 Ajay Bodies Not Reportable 06/01/16 08:21 Hem Pathologist Commnt No 06/01/16 08:21 PT 16.4 Sec. (12.2-14.9) H 05/31/16 10:56 INR 1.33 (0.87-1.13) H 05/31/16 10:56 APTT 26.6 Sec. (24.2-36.6) 05/31/16 10:56 Sodium 139 mmol/L (137-145) 06/01/16 08:21 Potassium 4.3 mmol/L (3.6-5.0) 06/01/16 08:21 Chloride 103.6 mmol/L (98-107) 06/01/16 08:21 Carbon Dioxide 22 mmol/L (22-30) 06/01/16 08:21 Anion Gap 18 mmol/L 06/01/16 08:21 BUN 14 mg/dL (7-17) 06/01/16 08:21 Creatinine 0.7 mg/dL (0.7-1.2) 06/01/16 08:21 Estimated GFR > 60 ml/min 06/01/16 08:21 BUN/Creatinine Ratio 20.00 % 06/01/16 08:21 Glucose 122 mg/dL (65-100) H 06/01/16 08:21 POC Glucose 131 (70-105) H 06/01/16 05:45 Lactic Acid 2.9 mmol/L (0.7-2.0) H* 05/31/16 13:02 Calcium 8.3 mg/dL (8.4-10.2) L 06/01/16 08:21 Total Bilirubin 1.0 mg/dL (0.1-1.2) 05/31/16 11:41 AST 28 units/L (5-40) 05/31/16 11:41 ALT 11 units/L (7-56) 05/31/16 11:41 Alkaline Phosphatase 82 units/L (35-129) 05/31/16 11:41 Ammonia 20.0 umol/L (25-60) L 05/31/16 11:41 Total Creatine Kinase 173 units/L (30-135) H 05/31/16 11:41 Troponin T < 0.010 ng/mL (0.00-0.029) 05/31/16 11:41 Total Protein 7.0 g/dL (6.3-8.2) 05/31/16 11:41 Albumin 3.3 g/dL (3.9-5) L 05/31/16 11:41 Albumin/Globulin Ratio 0.9 % 05/31/16 11:41 Triglycerides 68 mg/dL (2-149) 06/02/16 08:14 Cholesterol 127 mg/dL (50-199) 06/02/16 08:14 LDL Cholesterol Direct 79 mg/dL (50-130) 06/02/16 08:14 HDL Cholesterol 35 mg/dL (40-59) L 06/02/16 08:14 Cholesterol/HDL Ratio 3.62 % 06/02/16 08:14 TSH 0.869 mlU/mL (0.270-4.200) 05/31/16 10:56 Urine Color [place] (Yellow) 05/31/16 10:46 Urine Turbidity Clear (Clear) 05/31/16 10:46 Urine pH 5.0 (5.0-7.0) 05/31/16 10:46 Ur Specific [place] 1.023 (1.003-1.030) 05/31/16 10:46 Urine Protein 30 mg/dl mg/dL (Negative) 05/31/16 10:46 Urine Glucose (UA) Neg mg/dL (Negative) 05/31/16 10:46 Urine Ketones Neg mg/dL (Negative) 05/31/16 10:46 Urine Blood Mod (Negative) 05/31/16 10:46 Urine Nitrite Pos (Negative) 05/31/16 10:46 Urine Bilirubin Neg (Negative) 05/31/16 10:46 Urine Urobilinogen < 2.0 mg/dL (<2.0) 05/31/16 10:46 Ur Leukocyte Esterase Tr (Negative) 05/31/16 10:46 Urine WBC (Auto) 6.0 /HPF (0.0-6.0) 05/31/16 10:46 Urine RBC (Auto) 6.0 /HPF (0.0-6.0) 05/31/16 10:46 Urine Mucus Few /HPF 05/31/16 10:46 - Imaging and Cardiology MRI - head: report reviewed
[2016-06-02] MEDS: ZOCOR PO SCH (22:22)
[2016-06-02] MEDS: KEPPRA PO SCH (22:22)
[2016-06-03] MEDS: LEVAQUIN 750MG/150ML 750 MG/150 ML BAG IV SCH (12:46)
[2016-06-03] MEDS: COZAAR PO SCH (12:47)
[2016-06-03] MEDS: KEPPRA PO SCH (12:47)
[2016-06-03] MEDS: PRADAXA PO SCH (12:48)
--- NOTE | 2016-06-03 15:27 | Progress Note ---
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 Acute encephalopathy, likely due to acute CVA Leukocytosis, no source of acute infection, likely due to stress Chronic atrial fibrillation Hypertension, uncontrolled Plan: Noted MRI result 2d echo showed preserved EF PT/OT/speech eval - mechanical soft diet, d/c plan to SNF Monitor BP, adjust BP meds as needed, add coreg along with losartan cont pradaxa ordered EEG by neurology MRA head/neck pending cont keppra untill we have EEG report History Interval history: Pt seen and examined, updated family at bed side Pt unable to provide any history per daughter in law she was fully functional before last Sunday no reported seizure like activity SHE IS much alert and awake today Hospitalist Physical - Physical exam Narrative exam: GENERAL: elderly female lying on bed appeared to be in no discomfort. HEENT: Normocephalic. Atraumatic. No conjunctival congestion or icterus. Patient has moist mucous membranes. NECK: Supple. Trachea midline. CHEST/LUNGS: Clear to auscultated bilaterally, breathing nonlabored. No wheezes crackles or rhonchi. HEART/CARDIOVASCULAR: Regular in rate and rhythm. S1 and S2 positive. ABDOMEN: Abdomen is soft, nontender. Patient has normal bowel sounds. SKIN: There is no rash. Warm and dry. NEURO: move all extremity MUSCULOSKELETAL: No joint effusion or tenderness. EXTRIMITY: No edema, no cyanosis or clubbing. - Constitutional Vitals: Temp Pulse Resp BP Pulse Ox 98.4 F 103 H 28 H 174/94 98 06/03/16 08:10 06/03/16 08:10 06/03/16 08:10 06/03/16 08:10 06/03/16 08:30 Results - Labs CBC & Chem 7: 06/02/16 08:14 06/01/16 08:21 Labs: Laboratory Last Values WBC 9.1 K/mm3 (4.5-11.0) 06/02/16 08:14 RBC 3.33 M/mm3 (3.65-5.03) L 06/02/16 08:14 Hgb 8.3 gm/dl (10.1-14.3) L 06/02/16 08:14 Hct 26.7 % (30.3-42.9) L 06/02/16 08:14 MCV 80 fl (79-97) 06/02/16 08:14 MCH 25 pg (28-32) L 06/02/16 08:14 MCHC 31 % (30-34) 06/02/16 08:14 RDW 21.0 % (13.2-15.2) H 06/02/16 08:14 Plt Count 223 K/mm3 (140-440) 06/02/16 08:14 Lymph % (Auto) 7.9 % (13.4-35.0) L 05/31/16 11:41 [place] % (Auto) 5.2 % (0.0-7.3) 05/31/16 11:41 Eos % (Auto) 0.0 % (0.0-4.3) 05/31/16 11:41 Baso % (Auto) 0.2 % (0.0-1.8) 05/31/16 11:41 Lymph # 1.5 K/mm3 (1.2-5.4) 05/31/16 11:41 [place] # 1.0 K/mm3 (0.0-0.8) H 05/31/16 11:41 Eos # 0.0 K/mm3 (0.0-0.4) 05/31/16 11:41 Baso # 0.0 K/mm3 (0.0-0.1) 05/31/16 11:41 Add Manual Diff Complete 06/01/16 08:21 Total Counted 100 06/01/16 08:21 Seg Neutrophils % 86.7 % (40.0-70.0) H 05/31/16 11:41 Seg Neuts % (Manual) 87.0 % (40.0-70.0) H 06/01/16 08:21 Band Neutrophils % 0 % 06/01/16 08:21 Lymphocytes % (Manual) 8.0 % (13.4-35.0) L 06/01/16 08:21 Reactive Lymphs % (Man) 0 % 06/01/16 08:21 Monocytes % (Manual) 3.0 % (0.0-7.3) 06/01/16 08:21 Eosinophils % (Manual) 1.0 % (0.0-4.3) 06/01/16 08:21 Basophils % (Manual) 1.0 % (0.0-1.8) 06/01/16 08:21 Metamyelocytes % 0 % 06/01/16 08:21 Myelocytes % 0 % 06/01/16 08:21 Promyelocytes % 0 % 06/01/16 08:21 Blast Cells % 0 % 06/01/16 08:21 Nucleated RBC % Not Reportable 06/01/16 08:21 Seg Neutrophils # 15.8 K/mm3 (1.8-7.7) H 05/31/16 11:41 Seg Neutrophils # Man 10.7 K/mm3 (1.8-7.7) H 06/01/16 08:21 Band Neutrophils # 0.0 K/mm3 06/01/16 08:21 Lymphocytes # (Manual) 1.0 K/mm3 (1.2-5.4) L 06/01/16 08:21 Abs React Lymphs (Man) 0.0 K/mm3 06/01/16 08:21 Monocytes # (Manual) 0.4 K/mm3 (0.0-0.8) 06/01/16 08:21 Eosinophils # (Manual) 0.1 K/mm3 (0.0-0.4) 06/01/16 08:21 Basophils # (Manual) 0.1 K/mm3 (0.0-0.1) 06/01/16 08:21 Metamyelocytes # 0.0 K/mm3 06/01/16 08:21 Myelocytes # 0.0 K/mm3 06/01/16 08:21 Promyelocytes # 0.0 K/mm3 06/01/16 08:21 Blast Cells # 0.0 K/mm3 06/01/16 08:21 WBC Morphology Not Reportable 06/01/16 08:21 Hypersegmented Neuts Not Reportable 06/01/16 08:21 Hyposegmented Neuts Not Reportable 06/01/16 08:21 Hypogranular Neuts Not Reportable 06/01/16 08:21 Smudge Cells Not Reportable 06/01/16 08:21 Toxic Granulation Not Reportable 06/01/16 08:21 Toxic Vacuolation Not Reportable 06/01/16 08:21 Dohle Bodies Not Reportable 06/01/16 08:21 Pelger-Huet Anomaly Not Reportable 06/01/16 08:21 Rene Rods Not Reportable 06/01/16 08:21 Platelet Estimate Cons 06/01/16 08:21 Clumped Platelets Not Reportable 06/01/16 08:21 Plt Clumps, EDTA Not Reportable 06/01/16 08:21 Large Platelets Few 06/01/16 08:21 Giant Platelets Rare 06/01/16 08:21 Platelet Satelliting Not Reportable 06/01/16 08:21 Plt Morphology Comment Not Reportable 06/01/16 08:21 RBC Morphology Not Reportable 06/01/16 08:21 Dimorphic RBCs Not Reportable 06/01/16 08:21 Polychromasia Rare 06/01/16 08:21 Hypochromasia 1+ 06/01/16 08:21 Poikilocytosis Not Reportable 06/01/16 08:21 Anisocytosis 2+ 06/01/16 08:21 Microcytosis Not Reportable 06/01/16 08:21 Macrocytosis Not Reportable 06/01/16 08:21 Spherocytes Not Reportable 06/01/16 08:21 Pappenheimer Bodies Not Reportable 06/01/16 08:21 Sickle Cells Not Reportable 06/01/16 08:21 Target Cells Not Reportable 06/01/16 08:21 Tear Drop Cells Not Reportable 06/01/16 08:21 Ovalocytes Not Reportable 06/01/16 08:21 Helmet Cells Not Reportable 06/01/16 08:21 Maldonado-[place] Bodies Not Reportable 06/01/16 08:21 [place] Rings Not Reportable 06/01/16 08:21 Ric Cells Not Reportable 06/01/16 08:21 Bite Cells Not Reportable 06/01/16 08:21 Crenated Cell Not Reportable 06/01/16 08:21 Elliptocytes Not Reportable 06/01/16 08:21 Acanthocytes (Spur) Not Reportable 06/01/16 08:21 Rouleaux Not Reportable 06/01/16 08:21 Hemoglobin C Crystals Not Reportable 06/01/16 08:21 Schistocytes Not Reportable 06/01/16 08:21 Malaria parasites Not Reportable 06/01/16 08:21 Ajay Bodies Not Reportable 06/01/16 08:21 Hem Pathologist Commnt No 06/01/16 08:21 PT 16.4 Sec. (12.2-14.9) H 05/31/16 10:56 INR 1.33 (0.87-1.13) H 05/31/16 10:56 APTT 26.6 Sec. (24.2-36.6) 05/31/16 10:56 Sodium 139 mmol/L (137-145) 06/01/16 08:21 Potassium 4.3 mmol/L (3.6-5.0) 06/01/16 08:21 Chloride 103.6 mmol/L (98-107) 06/01/16 08:21 Carbon Dioxide 22 mmol/L (22-30) 06/01/16 08:21 Anion Gap 18 mmol/L 06/01/16 08:21 BUN 14 mg/dL (7-17) 06/01/16 08:21 Creatinine 0.7 mg/dL (0.7-1.2) 06/01/16 08:21 Estimated GFR > 60 ml/min 06/01/16 08:21 BUN/Creatinine Ratio 20.00 % 06/01/16 08:21 Glucose 122 mg/dL (65-100) H 06/01/16 08:21 POC Glucose 131 (70-105) H 06/01/16 05:45 Hemoglobin A1c 5.2 % (4-6) 06/03/16 09:15 Lactic Acid 2.9 mmol/L (0.7-2.0) H* 05/31/16 13:02 Calcium 8.3 mg/dL (8.4-10.2) L 06/01/16 08:21 Total Bilirubin 1.0 mg/dL (0.1-1.2) 05/31/16 11:41 AST 28 units/L (5-40) 05/31/16 11:41 ALT 11 units/L (7-56) 05/31/16 11:41 Alkaline Phosphatase 82 units/L (35-129) 05/31/16 11:41 Ammonia 20.0 umol/L (25-60) L 05/31/16 11:41 Total Creatine Kinase 173 units/L (30-135) H 05/31/16 11:41 Troponin T < 0.010 ng/mL (0.00-0.029) 05/31/16 11:41 Total Protein 7.0 g/dL (6.3-8.2) 05/31/16 11:41 Albumin 3.3 g/dL (3.9-5) L 05/31/16 11:41 Albumin/Globulin Ratio 0.9 % 05/31/16 11:41 Triglycerides 68 mg/dL (2-149) 06/02/16 08:14 Cholesterol 127 mg/dL (50-199) 06/02/16 08:14 LDL Cholesterol Direct 79 mg/dL (50-130) 06/02/16 08:14 HDL Cholesterol 35 mg/dL (40-59) L 06/02/16 08:14 Cholesterol/HDL Ratio 3.62 % 06/02/16 08:14 TSH 0.869 mlU/mL (0.270-4.200) 05/31/16 10:56 Urine Color [place] (Yellow) 05/31/16 10:46 Urine Turbidity Clear (Clear) 05/31/16 10:46 Urine pH 5.0 (5.0-7.0) 05/31/16 10:46 Ur Specific [place] 1.023 (1.003-1.030) 05/31/16 10:46 Urine Protein 30 mg/dl mg/dL (Negative) 05/31/16 10:46 Urine Glucose (UA) Neg mg/dL (Negative) 05/31/16 10:46 Urine Ketones Neg mg/dL (Negative) 05/31/16 10:46 Urine Blood Mod (Negative) 05/31/16 10:46 Urine Nitrite Pos (Negative) 05/31/16 10:46 Urine Bilirubin Neg (Negative) 05/31/16 10:46 Urine Urobilinogen < 2.0 mg/dL (<2.0) 05/31/16 10:46 Ur Leukocyte Esterase Tr (Negative) 05/31/16 10:46 Urine WBC (Auto) 6.0 /HPF (0.0-6.0) 05/31/16 10:46 Urine RBC (Auto) 6.0 /HPF (0.0-6.0) 05/31/16 10:46 Urine Mucus Few /HPF 05/31/16 10:46
[2016-06-04] MEDS: ZOCOR PO SCH ×2 (00:18→22:41)
[2016-06-04] MEDS: COREG PO SCH ×3 (00:18→22:41)
[2016-06-04] MEDS: KEPPRA PO SCH ×3 (00:19→22:41)
[2016-06-04] MEDS: PRADAXA PO SCH ×3 (00:19→22:41)
[2016-06-04 11:16] LABS: Anion Gap 18 mmol/L; Blood Urea Nitrogen 12 mg/dL (7-17); Calcium 7.8 mg/dL (8.4-10.2); Carbon Dioxide 21 mmol/L (22-30); Chloride 102.7 mmol/L (98-107); Glucose 150 mg/dL (65-100); Potassium 3.9 mmol/L (3.6-5.0); Sodium 138 mmol/L (137-145)
[2016-06-04] MEDS: LEVAQUIN 750MG/150ML 750 MG/150 ML BAG IV SCH (11:16)
[2016-06-04] MEDS: COZAAR PO SCH (11:17)
[2016-06-04] MEDS ORDERED: ATIVAN IV ONE ×2 (12:37→15:45)
--- NOTE | 2016-06-04 14:31 | Progress Note ---
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 Acute encephalopathy, likely due to acute CVA Leukocytosis, no source of acute infection, likely due to stress Chronic atrial fibrillation Hypertension, uncontrolled Plan: Noted MRI result, MRA showed no acute abnormality, exam was limited 2d echo showed preserved EF PT/OT/speech eval - mechanical soft diet, d/c plan to SNF Monitor BP, adjust BP meds as needed, cont coreg along with losartan cont pradaxa for atrial fib ordered EEG by neurology, wait for the result cont keppra untill we have EEG report possible d/c to SNF tomorrow History Interval history: Pt seen and examined, updated family at bed side Pt unable to provide any history per daughter in law she was fully functional before last Sunday no reported seizure like activity Pt's son at bedside, updated in details She is planned to have MRA of head and neck Hospitalist Physical - Physical exam Narrative exam: GENERAL: elderly female lying on bed appeared to be in no discomfort. HEENT: Normocephalic. Atraumatic. No conjunctival congestion or icterus. Patient has moist mucous membranes. NECK: Supple. Trachea midline. CHEST/LUNGS: Clear to auscultated bilaterally, breathing nonlabored. No wheezes crackles or rhonchi. HEART/CARDIOVASCULAR: Regular in rate and rhythm. S1 and S2 positive. ABDOMEN: Abdomen is soft, nontender. Patient has normal bowel sounds. SKIN: There is no rash. Warm and dry. NEURO: move all extremity MUSCULOSKELETAL: No joint effusion or tenderness. EXTRIMITY: No edema, no cyanosis or clubbing. - Constitutional Vitals: Temp Pulse Resp BP Pulse Ox 98.7 F 93 H 16 146/87 99 06/04/16 07:30 06/04/16 07:30 06/04/16 07:30 06/04/16 07:30 06/04/16 07:30 Results - Labs CBC & Chem 7: 06/02/16 08:14 06/04/16 10:49 Labs: Laboratory Last Values WBC 9.1 K/mm3 (4.5-11.0) 06/02/16 08:14 RBC 3.33 M/mm3 (3.65-5.03) L 06/02/16 08:14 Hgb 8.3 gm/dl (10.1-14.3) L 06/02/16 08:14 Hct 26.7 % (30.3-42.9) L 06/02/16 08:14 MCV 80 fl (79-97) 06/02/16 08:14 MCH 25 pg (28-32) L 06/02/16 08:14 MCHC 31 % (30-34) 06/02/16 08:14 RDW 21.0 % (13.2-15.2) H 06/02/16 08:14 Plt Count 223 K/mm3 (140-440) 06/02/16 08:14 Lymph % (Auto) 7.9 % (13.4-35.0) L 05/31/16 11:41 [place] % (Auto) 5.2 % (0.0-7.3) 05/31/16 11:41 Eos % (Auto) 0.0 % (0.0-4.3) 05/31/16 11:41 Baso % (Auto) 0.2 % (0.0-1.8) 05/31/16 11:41 Lymph # 1.5 K/mm3 (1.2-5.4) 05/31/16 11:41 [place] # 1.0 K/mm3 (0.0-0.8) H 05/31/16 11:41 Eos # 0.0 K/mm3 (0.0-0.4) 05/31/16 11:41 Baso # 0.0 K/mm3 (0.0-0.1) 05/31/16 11:41 Add Manual Diff Complete 06/01/16 08:21 Total Counted 100 06/01/16 08:21 Seg Neutrophils % 86.7 % (40.0-70.0) H 05/31/16 11:41 Seg Neuts % (Manual) 87.0 % (40.0-70.0) H 06/01/16 08:21 Band Neutrophils % 0 % 06/01/16 08:21 Lymphocytes % (Manual) 8.0 % (13.4-35.0) L 06/01/16 08:21 Reactive Lymphs % (Man) 0 % 06/01/16 08:21 Monocytes % (Manual) 3.0 % (0.0-7.3) 06/01/16 08:21 Eosinophils % (Manual) 1.0 % (0.0-4.3) 06/01/16 08:21 Basophils % (Manual) 1.0 % (0.0-1.8) 06/01/16 08:21 Metamyelocytes % 0 % 06/01/16 08:21 Myelocytes % 0 % 06/01/16 08:21 Promyelocytes % 0 % 06/01/16 08:21 Blast Cells % 0 % 06/01/16 08:21 Nucleated RBC % Not Reportable 06/01/16 08:21 Seg Neutrophils # 15.8 K/mm3 (1.8-7.7) H 05/31/16 11:41 Seg Neutrophils # Man 10.7 K/mm3 (1.8-7.7) H 06/01/16 08:21 Band Neutrophils # 0.0 K/mm3 06/01/16 08:21 Lymphocytes # (Manual) 1.0 K/mm3 (1.2-5.4) L 06/01/16 08:21 Abs React Lymphs (Man) 0.0 K/mm3 06/01/16 08:21 Monocytes # (Manual) 0.4 K/mm3 (0.0-0.8) 06/01/16 08:21 Eosinophils # (Manual) 0.1 K/mm3 (0.0-0.4) 06/01/16 08:21 Basophils # (Manual) 0.1 K/mm3 (0.0-0.1) 06/01/16 08:21 Metamyelocytes # 0.0 K/mm3 06/01/16 08:21 Myelocytes # 0.0 K/mm3 06/01/16 08:21 Promyelocytes # 0.0 K/mm3 06/01/16 08:21 Blast Cells # 0.0 K/mm3 06/01/16 08:21 WBC Morphology Not Reportable 06/01/16 08:21 Hypersegmented Neuts Not Reportable 06/01/16 08:21 Hyposegmented Neuts Not Reportable 06/01/16 08:21 Hypogranular Neuts Not Reportable 06/01/16 08:21 Smudge Cells Not Reportable 06/01/16 08:21 Toxic Granulation Not Reportable 06/01/16 08:21 Toxic Vacuolation Not Reportable 06/01/16 08:21 Dohle Bodies Not Reportable 06/01/16 08:21 Pelger-Huet Anomaly Not Reportable 06/01/16 08:21 Rene Rods Not Reportable 06/01/16 08:21 Platelet Estimate Cons 06/01/16 08:21 Clumped Platelets Not Reportable 06/01/16 08:21 Plt Clumps, EDTA Not Reportable 06/01/16 08:21 Large Platelets Few 06/01/16 08:21 Giant Platelets Rare 06/01/16 08:21 Platelet Satelliting Not Reportable 06/01/16 08:21 Plt Morphology Comment Not Reportable 06/01/16 08:21 RBC Morphology Not Reportable 06/01/16 08:21 Dimorphic RBCs Not Reportable 06/01/16 08:21 Polychromasia Rare 06/01/16 08:21 Hypochromasia 1+ 06/01/16 08:21 Poikilocytosis Not Reportable 06/01/16 08:21 Anisocytosis 2+ 06/01/16 08:21 Microcytosis Not Reportable 06/01/16 08:21 Macrocytosis Not Reportable 06/01/16 08:21 Spherocytes Not Reportable 06/01/16 08:21 Pappenheimer Bodies Not Reportable 06/01/16 08:21 Sickle Cells Not Reportable 06/01/16 08:21 Target Cells Not Reportable 06/01/16 08:21 Tear Drop Cells Not Reportable 06/01/16 08:21 Ovalocytes Not Reportable 06/01/16 08:21 Helmet Cells Not Reportable 06/01/16 08:21 [place] Bodies Not Reportable 06/01/16 08:21 Amonate Rings Not Reportable 06/01/16 08:21 Ric Cells Not Reportable 06/01/16 08:21 Bite Cells Not Reportable 06/01/16 08:21 Crenated Cell Not Reportable 06/01/16 08:21 Elliptocytes Not Reportable 06/01/16 08:21 Acanthocytes (Spur) Not Reportable 06/01/16 08:21 Rouleaux Not Reportable 06/01/16 08:21 Hemoglobin C Crystals Not Reportable 06/01/16 08:21 Schistocytes Not Reportable 06/01/16 08:21 Malaria parasites Not Reportable 06/01/16 08:21 Ajay Bodies Not Reportable 06/01/16 08:21 Hem Pathologist Commnt No 06/01/16 08:21 PT 16.4 Sec. (12.2-14.9) H 05/31/16 10:56 INR 1.33 (0.87-1.13) H 05/31/16 10:56 APTT 26.6 Sec. (24.2-36.6) 05/31/16 10:56 Sodium 138 mmol/L (137-145) 06/04/16 10:49 Potassium 3.9 mmol/L (3.6-5.0) 06/04/16 10:49 Chloride 102.7 mmol/L (98-107) 06/04/16 10:49 Carbon Dioxide 21 mmol/L (22-30) L 06/04/16 10:49 Anion Gap 18 mmol/L 06/04/16 10:49 BUN 12 mg/dL (7-17) 06/04/16 10:49 Creatinine 0.6 mg/dL (0.7-1.2) L 06/04/16 10:49 Estimated GFR > 60 ml/min 06/04/16 10:49 BUN/Creatinine Ratio 20.00 % 06/04/16 10:49 Glucose 150 mg/dL (65-100) H 06/04/16 10:49 POC Glucose 131 (70-105) H 06/01/16 05:45 Hemoglobin A1c 5.2 % (4-6) 06/03/16 09:15 Lactic Acid 2.9 mmol/L (0.7-2.0) H* 05/31/16 13:02 Calcium 7.8 mg/dL (8.4-10.2) L 06/04/16 10:49 Total Bilirubin 1.0 mg/dL (0.1-1.2) 05/31/16 11:41 AST 28 units/L (5-40) 05/31/16 11:41 ALT 11 units/L (7-56) 05/31/16 11:41 Alkaline Phosphatase 82 units/L (35-129) 05/31/16 11:41 Ammonia 20.0 umol/L (25-60) L 05/31/16 11:41 Total Creatine Kinase 173 units/L (30-135) H 05/31/16 11:41 Troponin T < 0.010 ng/mL (0.00-0.029) 05/31/16 11:41 Total Protein 7.0 g/dL (6.3-8.2) 05/31/16 11:41 Albumin 3.3 g/dL (3.9-5) L 05/31/16 11:41 Albumin/Globulin Ratio 0.9 % 05/31/16 11:41 Triglycerides 68 mg/dL (2-149) 06/02/16 08:14 Cholesterol 127 mg/dL (50-199) 06/02/16 08:14 LDL Cholesterol Direct 79 mg/dL (50-130) 06/02/16 08:14 HDL Cholesterol 35 mg/dL (40-59) L 06/02/16 08:14 Cholesterol/HDL Ratio 3.62 % 06/02/16 08:14 TSH 0.869 mlU/mL (0.270-4.200) 05/31/16 10:56 Urine Color [place] (Yellow) 05/31/16 10:46 Urine Turbidity Clear (Clear) 05/31/16 10:46 Urine pH 5.0 (5.0-7.0) 05/31/16 10:46 Ur Specific [place] 1.023 (1.003-1.030) 05/31/16 10:46 Urine Protein 30 mg/dl mg/dL (Negative) 05/31/16 10:46 Urine Glucose (UA) Neg mg/dL (Negative) 05/31/16 10:46 Urine Ketones Neg mg/dL (Negative) 05/31/16 10:46 Urine Blood Mod (Negative) 05/31/16 10:46 Urine Nitrite Pos (Negative) 05/31/16 10:46 Urine Bilirubin Neg (Negative) 05/31/16 10:46 Urine Urobilinogen < 2.0 mg/dL (<2.0) 05/31/16 10:46 Ur Leukocyte Esterase Tr (Negative) 05/31/16 10:46 Urine WBC (Auto) 6.0 /HPF (0.0-6.0) 05/31/16 10:46 Urine RBC (Auto) 6.0 /HPF (0.0-6.0) 05/31/16 10:46 Urine Mucus Few /HPF 05/31/16 10:46
--- NOTE | 2016-06-04 16:40 | Magnetic Resonance Report ---
FINAL REPORT PROCEDURE: MR MRA/MRV HEAD WO CON TECHNIQUE: Axial 3-D [id number] MR angiography of the [place] and brain was performed. The source images were reconstructed in various views using maximum intensity projection. HISTORY: Stroke. COMPARISON: No prior studies are available for comparison. FINDINGS: The patient was unable to cooperate with the exam. The study is limited due to motion artifact. Both of the common carotid arteries are patent. The detail is limited due to motion artifact. There it appears to be irregularity and narrowing in both carotid siphons proximally. Some of this may be related to stenosis. I cannot exclude artifact from motion. Both A1 segments appear to be patent as do the anterior cerebral arteries. The middle cerebral arteries appear patent although there is heterogeneous signal seen along the peripheral branches of the right middle cerebral artery which appear to be related to an infarction. Vertebral arteries and basilar artery as well both posterior cerebral arteries appear patent. No changes are seen that would suggest aneurysm or vascular malformation. IMPRESSION: Limited study as described. Anterior and posterior circulation appear intact however there is abnormal signal surrounding the peripheral branches of the right middle cerebral artery which appear to be related to an infarction in this area. Detailed MRI of the brain was not performed. Stenosis of the carotid siphons bilaterally appears to be present bilaterally although poorly defined on this exam.
[2016-06-05 05:11] LABS: Basophils % (Auto) 0.6 % (0.0-1.8); Eosinophils % (Auto) 1.5 % (0.0-4.3); Hematocrit 26.7 % (30.3-42.9); Hemoglobin 8.5 gm/dl (10.1-14.3); Mean Corpuscular HGB Conc 32 % (30-34); Mean Corpuscular Volume 79 fl (79-97); Platelet Count 257 K/mm3 (140-440); Red Blood Count 3.36 M/mm3 (3.65-5.03); White Blood Count 8.1 K/mm3 (4.5-11.0)
[2016-06-05 05:22] LABS: Anion Gap 16 mmol/L; BUN/Creatinine Ratio 16.66; Blood Urea Nitrogen 10 mg/dL (7-17); Calcium 7.8 mg/dL (8.4-10.2); Carbon Dioxide 22 mmol/L (22-30); Chloride 104.2 mmol/L (98-107); Glucose 116 mg/dL (65-100); Potassium 3.9 mmol/L (3.6-5.0); Sodium 138 mmol/L (137-145)
[2016-06-05 05:35] LABS: Mean Corpuscular Hemoglobin 25 pg (28-32); Red Cell Distribution Width 20.2 % (13.2-15.2)
[2016-06-05] MEDS: COREG PO SCH ×3 (10:11→22:30)
[2016-06-05] MEDS: KEPPRA PO SCH ×2 (10:11→13:56)
[2016-06-05] MEDS: PRADAXA PO SCH ×3 (10:11→22:30)
[2016-06-05] MEDS: LEVAQUIN PO SCH ×2 (10:12→13:53)
[2016-06-05] MEDS: COZAAR PO SCH ×2 (10:12→13:52)
--- NOTE | 2016-06-05 11:10 | XRay Report ---
PORTABLE CHEST INDICATION: Aspiration. COMPARISON: 05/31/2016 FINDINGS: Portable, frontal chest radiograph again demonstrates mild cardiomegaly, dense aortic knob calcifications, EKG leads and demineralized bones with degenerative changes. Increased congestive pulmonary haziness, right more than left with suspected pleural effusions, also now tracking along inner aspect of ribs on the right. CONCLUSION: Worsening pulmonary vascular congestion/pleural effusions with cardiomegaly again noted. Please correlate. Thank you for the opportunity to participate in this patient's care.
--- NOTE | 2016-06-05 13:23 | Electroencephalogram Report ---
Electroencephalogram EEG Date of exam: 06/05/16 History: 85 YO F p/w AMS found to have R MCA stroke. Impression: Abnormal 20 mins EEG in awake and sleep states. There are findings to suggest mild-moderate nonspecific diffuse cerebral dysfunction consistent with encephalopathy and the patient's known history of R MCA stroke. There are no findings to suggest epileptiform activity or seizures. Description: The waking background shows an inappropriate organization with poorly-defined anterior posterior voltage and frequency gradients. Posteriorly, there is a poorly-developed mixed theta and delta rhythm of which is symmetrical as it is more attenuated diffusely in the right hemisphere. There is however bilateral reactivity and some variability. During drowsiness, there is attenuation of the background rhythms. The sleep background shows fairly normal organization with well-formed sleep spindles and vertex waves which are synchronous. Throughout, the recording there are no epileptiform abnormalities or seizures. Interpretation: This is a digitally acquired 21-channel electroencephalogram. Both bipolar and referential montages were used in interpretation. Electrodes were placed in accordance with the International 10-20 system.
[2016-06-05] MEDS: LASIX IV SCH (13:52)
--- NOTE | 2016-06-05 14:15 | Progress Note ---
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 Acute encephalopathy, likely due to acute CVA Leukocytosis, no source of acute infection, likely due to stress Chronic atrial fibrillation, on pradaxa Hypertension, uncontrolled Pulmonary edema, likely due to diastolic dysfunction of heart CHF with diastolic dysfunction Plan: Noted MRI result, MRA head showed no acute abnormality, exam was limited 2d echo showed preserved EF PT/OT/speech eval - mechanical soft diet, d/c plan to SNF Monitor BP, adjust BP meds as needed, cont coreg along with losartan cont pradaxa for atrial fib ordered EEG by neurology, negative for any seizure like activity place on daily lasix for pulmonary congestion Plan to get MRA neck today, follow result possible d/c to SNF tomorrow, if clinically stable History Interval history: Pt seen and examined, updated family patient's son at bed side Pt noted to be very lethargic this morning She was unable to take medication this morning Her breathing also noted to be slightly labored by RN, placed on supplemental oxygen 3 L She is planned to have MRA of neck Hospitalist Physical - Physical exam Narrative exam: GENERAL: elderly female lying on bed appeared to be in no discomfort. sleepy HEENT: Normocephalic. Atraumatic. No conjunctival congestion or icterus. Patient has moist mucous membranes. NECK: Supple. Trachea midline. CHEST/LUNGS: Clear to auscultated bilaterally, breathing nonlabored. No wheezes crackles or rhonchi. HEART/CARDIOVASCULAR: Regular in rate and rhythm. S1 and S2 positive. ABDOMEN: Abdomen is soft, nontender. Patient has normal bowel sounds. SKIN: There is no rash. Warm and dry. NEURO: move all extremity MUSCULOSKELETAL: No joint effusion or tenderness. EXTRIMITY: No edema, no cyanosis or clubbing. - Constitutional Vitals: Temp Pulse Resp BP Pulse Ox 98.4 F 92 H 18 133/96 94 06/05/16 11:46 06/05/16 13:52 06/05/16 11:46 06/05/16 11:46 06/05/16 08:37 Results - Labs CBC & Chem 7: 06/05/16 04:55 06/05/16 04:55 Labs: Laboratory Last Values WBC 8.1 K/mm3 (4.5-11.0) 06/05/16 04:55 RBC 3.36 M/mm3 (3.65-5.03) L 06/05/16 04:55 Hgb 8.5 gm/dl (10.1-14.3) L 06/05/16 04:55 Hct 26.7 % (30.3-42.9) L 06/05/16 04:55 MCV 79 fl (79-97) 06/05/16 04:55 MCH 25 pg (28-32) L 06/05/16 04:55 MCHC 32 % (30-34) 06/05/16 04:55 RDW 20.2 % (13.2-15.2) H 06/05/16 04:55 Plt Count 257 K/mm3 (140-440) 06/05/16 04:55 Lymph % (Auto) 19.6 % (13.4-35.0) 06/05/16 04:55 [place] % (Auto) 11.1 % (0.0-7.3) H 06/05/16 04:55 Eos % (Auto) 1.5 % (0.0-4.3) 06/05/16 04:55 Baso % (Auto) 0.6 % (0.0-1.8) 06/05/16 04:55 Lymph # 1.6 K/mm3 (1.2-5.4) 06/05/16 04:55 [place] # 0.9 K/mm3 (0.0-0.8) H 06/05/16 04:55 Eos # 0.1 K/mm3 (0.0-0.4) 06/05/16 04:55 Baso # 0.0 K/mm3 (0.0-0.1) 06/05/16 04:55 Add Manual Diff Complete 06/01/16 08:21 Total Counted 100 06/01/16 08:21 Seg Neutrophils % 67.2 % (40.0-70.0) 06/05/16 04:55 Seg Neuts % (Manual) 87.0 % (40.0-70.0) H 06/01/16 08:21 Band Neutrophils % 0 % 06/01/16 08:21 Lymphocytes % (Manual) 8.0 % (13.4-35.0) L 06/01/16 08:21 Reactive Lymphs % (Man) 0 % 06/01/16 08:21 Monocytes % (Manual) 3.0 % (0.0-7.3) 06/01/16 08:21 Eosinophils % (Manual) 1.0 % (0.0-4.3) 06/01/16 08:21 Basophils % (Manual) 1.0 % (0.0-1.8) 06/01/16 08:21 Metamyelocytes % 0 % 06/01/16 08:21 Myelocytes % 0 % 06/01/16 08:21 Promyelocytes % 0 % 06/01/16 08:21 Blast Cells % 0 % 06/01/16 08:21 Nucleated RBC % Not Reportable 06/01/16 08:21 Seg Neutrophils # 5.4 K/mm3 (1.8-7.7) 06/05/16 04:55 Seg Neutrophils # Man 10.7 K/mm3 (1.8-7.7) H 06/01/16 08:21 Band Neutrophils # 0.0 K/mm3 06/01/16 08:21 Lymphocytes # (Manual) 1.0 K/mm3 (1.2-5.4) L 06/01/16 08:21 Abs React Lymphs (Man) 0.0 K/mm3 06/01/16 08:21 Monocytes # (Manual) 0.4 K/mm3 (0.0-0.8) 06/01/16 08:21 Eosinophils # (Manual) 0.1 K/mm3 (0.0-0.4) 06/01/16 08:21 Basophils # (Manual) 0.1 K/mm3 (0.0-0.1) 06/01/16 08:21 Metamyelocytes # 0.0 K/mm3 06/01/16 08:21 Myelocytes # 0.0 K/mm3 06/01/16 08:21 Promyelocytes # 0.0 K/mm3 06/01/16 08:21 Blast Cells # 0.0 K/mm3 06/01/16 08:21 WBC Morphology Not Reportable 06/01/16 08:21 Hypersegmented Neuts Not Reportable 06/01/16 08:21 Hyposegmented Neuts Not Reportable 06/01/16 08:21 Hypogranular Neuts Not Reportable 06/01/16 08:21 Smudge Cells Not Reportable 06/01/16 08:21 Toxic Granulation Not Reportable 06/01/16 08:21 Toxic Vacuolation Not Reportable 06/01/16 08:21 Dohle Bodies Not Reportable 06/01/16 08:21 Pelger-Huet Anomaly Not Reportable 06/01/16 08:21 Rene Rods Not Reportable 06/01/16 08:21 Platelet Estimate Cons 06/01/16 08:21 Clumped Platelets Not Reportable 06/01/16 08:21 Plt Clumps, EDTA Not Reportable 06/01/16 08:21 Large Platelets Few 06/01/16 08:21 Giant Platelets Rare 06/01/16 08:21 Platelet Satelliting Not Reportable 06/01/16 08:21 Plt Morphology Comment Not Reportable 06/01/16 08:21 RBC Morphology Not Reportable 06/01/16 08:21 Dimorphic RBCs Not Reportable 06/01/16 08:21 Polychromasia Rare 06/01/16 08:21 Hypochromasia 1+ 06/01/16 08:21 Poikilocytosis Not Reportable 06/01/16 08:21 Anisocytosis 2+ 06/01/16 08:21 Microcytosis Not Reportable 06/01/16 08:21 Macrocytosis Not Reportable 06/01/16 08:21 Spherocytes Not Reportable 06/01/16 08:21 Pappenheimer Bodies Not Reportable 06/01/16 08:21 Sickle Cells Not Reportable 06/01/16 08:21 Target Cells Not Reportable 06/01/16 08:21 Tear Drop Cells Not Reportable 06/01/16 08:21 Ovalocytes Not Reportable 06/01/16 08:21 Helmet Cells Not Reportable 06/01/16 08:21 [place] Bodies Not Reportable 06/01/16 08:21 [place] Rings Not Reportable 06/01/16 08:21 Ric Cells Not Reportable 06/01/16 08:21 Bite Cells Not Reportable 06/01/16 08:21 Crenated Cell Not Reportable 06/01/16 08:21 Elliptocytes Not Reportable 06/01/16 08:21 Acanthocytes (Spur) Not Reportable 06/01/16 08:21 Rouleaux Not Reportable 06/01/16 08:21 Hemoglobin C Crystals Not Reportable 06/01/16 08:21 Schistocytes Not Reportable 06/01/16 08:21 Malaria parasites Not Reportable 06/01/16 08:21 Ajay Bodies Not Reportable 06/01/16 08:21 Hem Pathologist Commnt No 06/01/16 08:21 PT 16.4 Sec. (12.2-14.9) H 05/31/16 10:56 INR 1.33 (0.87-1.13) H 05/31/16 10:56 APTT 26.6 Sec. (24.2-36.6) 05/31/16 10:56 Sodium 138 mmol/L (137-145) 06/05/16 04:55 Potassium 3.9 mmol/L (3.6-5.0) 06/05/16 04:55 Chloride 104.2 mmol/L (98-107) 06/05/16 04:55 Carbon Dioxide 22 mmol/L (22-30) 06/05/16 04:55 Anion Gap 16 mmol/L 06/05/16 04:55 BUN 10 mg/dL (7-17) 06/05/16 04:55 Creatinine 0.6 mg/dL (0.7-1.2) L 06/05/16 04:55 Estimated GFR > 60 ml/min 06/05/16 04:55 BUN/Creatinine Ratio 16.66 % 06/05/16 04:55 Glucose 116 mg/dL (65-100) H 06/05/16 04:55 POC Glucose 124 (70-105) H 06/05/16 11:19 Hemoglobin A1c 5.2 % (4-6) 06/03/16 09:15 Lactic Acid 2.9 mmol/L (0.7-2.0) H* 05/31/16 13:02 Calcium 7.8 mg/dL (8.4-10.2) L 06/05/16 04:55 Total Bilirubin 1.0 mg/dL (0.1-1.2) 05/31/16 11:41 AST 28 units/L (5-40) 05/31/16 11:41 ALT 11 units/L (7-56) 05/31/16 11:41 Alkaline Phosphatase 82 units/L (35-129) 05/31/16 11:41 Ammonia 20.0 umol/L (25-60) L 05/31/16 11:41 Total Creatine Kinase 173 units/L (30-135) H 05/31/16 11:41 Troponin T < 0.010 ng/mL (0.00-0.029) 05/31/16 11:41 Total Protein 7.0 g/dL (6.3-8.2) 05/31/16 11:41 Albumin 3.3 g/dL (3.9-5) L 05/31/16 11:41 Albumin/Globulin Ratio 0.9 % 05/31/16 11:41 Triglycerides 68 mg/dL (2-149) 06/02/16 08:14 Cholesterol 127 mg/dL (50-199) 06/02/16 08:14 LDL Cholesterol Direct 79 mg/dL (50-130) 06/02/16 08:14 HDL Cholesterol 35 mg/dL (40-59) L 06/02/16 08:14 Cholesterol/HDL Ratio 3.62 % 06/02/16 08:14 TSH 0.869 mlU/mL (0.270-4.200) 05/31/16 10:56 Urine Color [place] (Yellow) 05/31/16 10:46 Urine Turbidity Clear (Clear) 05/31/16 10:46 Urine pH 5.0 (5.0-7.0) 05/31/16 10:46 Ur Specific [place] 1.023 (1.003-1.030) 05/31/16 10:46 Urine Protein 30 mg/dl mg/dL (Negative) 05/31/16 10:46 Urine Glucose (UA) Neg mg/dL (Negative) 05/31/16 10:46 Urine Ketones Neg mg/dL (Negative) 05/31/16 10:46 Urine Blood Mod (Negative) 05/31/16 10:46 Urine Nitrite Pos (Negative) 05/31/16 10:46 Urine Bilirubin Neg (Negative) 05/31/16 10:46 Urine Urobilinogen < 2.0 mg/dL (<2.0) 05/31/16 10:46 Ur Leukocyte Esterase Tr (Negative) 05/31/16 10:46 Urine WBC (Auto) 6.0 /HPF (0.0-6.0) 05/31/16 10:46 Urine RBC (Auto) 6.0 /HPF (0.0-6.0) 05/31/16 10:46 Urine Mucus Few /HPF 05/31/16 10:46 - Imaging and Cardiology Chest x-ray: report reviewed (pulmonary congestion)
[2016-06-05] MEDS ORDERED: ATIVAN IV ONE ×2 (14:21→16:25)
--- NOTE | 2016-06-05 18:11 | Magnetic Resonance Report ---
FINAL REPORT PROCEDURE: MR MRA/MRV NECK WO CON TECHNIQUE: MR angiography of the cervical carotid and vertebral arteries was performed. The source images were reconstructed in various views using maximum intensity projection. HISTORY: cva COMPARISON: MRA exam from the previous day FINDINGS: Study is limited due to motion. Wrap artifacts also limit evaluation. Origins of the vertebral and common carotid arteries are not well visualized. Vertebral arteries appear codominant. No vertebral artery stenosis is seen. No stenosis is seen in the visualized portions of the right CCA are ICA. There is artifactual loss of signal in both distal ICAs from tortuosity flow dephasing. Mild plaque is suspected in the origin of the left ICA causing much less than 50 percent stenosis. IMPRESSION: Likely mild stenosis, much less than 50 percent, is seen in the left ICA origin.
[2016-06-05] MEDS: ZOCOR PO SCH (22:30)
[2016-06-06] MEDS: AMBIEN PO PRN (03:13)
[2016-06-06] MEDS ORDERED: ATIVAN IV ONE (03:15)
--- NOTE | 2016-06-06 09:40 | Discharge Summary ---
Providers - Providers Date of Admission: 05/31/16 12:29 Date of discharge: 06/06/16 Attending physician: SELAM ROJO 06/01/16 03:43 Occupational Therapy Evaluate and Treat [CONS] Routine Comment: Reason For Exam: Neuro deficits Physical Therapy Evaluation and Treat [CONS] Routine Comment: Reason For Exam: Neuro deficits 06/01/16 03:44 Consult to Physician [CONS] Routine Consulting Provider: HERMELINDO CAIN Reason For Exam: TIA/AMS Place consult to:: DR. CAIN Notified:: DR. CAIN Phone number called:: [phone] Was contact made?: Yes If yes, spoke with:: Time called:: 09:08 Comment:: CLAUDIA NOTIFIED 06/01/16 22:48 Speech Therapy Evaluation and Treat [CONS] Routine Reason For Exam: dysphagia screening Primary care physician: [employer] Hospitalization Condition: Fair Disposition: DC/[place] SNF W [facility] CERT - Discharge Diagnoses (1) Acute ischemic stroke Status: Acute Core Measure Documentation - Palliative Care Palliative Care/ Comfort Measures: Not Applicable - Core Measures Any of the following diagnoses?: heart failure, stroke - Heart Failure Discharge Requirements TIM/ARB for LVSD if EF <40%: Not Applicable Beta mynor at discharge: Yes - Stroke Discharge Requirements Statin for LDL = or >70 mg/dl on DC: Yes Anticoag for atrial fib/atrial flutter: Yes Antithrombotic for ischemic stroke: Yes Exam - Constitutional Vitals: Temp Pulse Resp BP Pulse Ox 97.5 F L 98 H 16 127/74 97 06/06/16 07:35 06/06/16 08:07 06/06/16 07:35 06/06/16 07:35 06/06/16 07:35 Plan Activity: advance as tolerated Diet: other (mechanical soft diet) Additional Instructions: 1.Follow up with Physician at SNF in 3-5 days. 2.check BMP in 1 week to be followed by Physician at SNF. Follow up with: PRIMARY CARE, [Primary Care Provider] - 3-5 Days Prescriptions: Carvedilol [Coreg] 6.25 mg PO BID #60 tablet Famotidine [Pepcid] 20 mg PO BID #60 tablet Furosemide [Lasix TAB] 40 mg PO QDAY #7 tablet Losartan [Cozaar] 50 mg PO QDAY #30 tablet Potassium Chloride [Klor-Con] 20 meq PO DAILY #10 packet Simvastatin [Zocor TAB] 20 mg PO QHS #30 tablet
[2016-06-06] MEDS: COREG PO SCH ×3 (11:31→22:28)
[2016-06-06] MEDS: LASIX IV SCH ×2 (11:32→16:46)
[2016-06-06] MEDS: LEVAQUIN PO SCH (11:32)
[2016-06-06] MEDS: COZAAR PO SCH ×2 (11:32→16:45)
[2016-06-06] MEDS: PRADAXA PO SCH ×3 (11:33→22:27)
--- NOTE | 2016-06-06 12:00 | Vascular Lab Report ---
CAROTID DUPLEX STUDY: RIGHT PSVEDV CCA PROX: 39 9 CCA DIST: 2712 ICA PROX: 2815 ICA MID: 5023 ICA DIST: 7228 ECA: 54 VERT: 27 12 LEFT PSVEDV CCA PROX: 50 7 CCA DIST: 3714 ICA PROX: 3111 ICA MID: 4121 ICA DIST: 4517 ECA: 80 VERT: 41 16 REASON FOR EXAM: Stroke. COMMENTS ON THE RIGHT: Doppler frequency analysis is consistent with 16 to 49 percent diameter reduction of the internal carotid artery. Minimal amount of plaque is seen. The common carotid artery is patent. The external carotid artery is patent. The vertebral artery has antegrade flow. COMMENTS ON THE LEFT: Doppler frequency analysis is consistent with 16 to 49 percent diameter reduction of the internal carotid artery. Minimal amount of plaque is seen. The common carotid artery is patent. The external carotid artery is patent. The vertebral artery has antegrade flow. IMPRESSION: Less than 50% diameter reduction in the internal carotid arteries bilaterally. Consider repeat carotid artery duplex in 12 months.
[2016-06-06] MEDS ORDERED: DULCOLAX PR ONE (12:30)
[2016-06-06] MEDS ORDERED: MIRALAX 3350 PO SCH (14:00)
--- NOTE | 2016-06-06 14:53 | Progress Note ---
Assessment and Plan Assessment and plan: Acute ischemic stroke. On Pradaxa. She was about to be discharged to SNF today but not discharged because could not get specimen for stool c diff Hypertension. BP stable Chronic atrial fibrillation. Continue Pradaxa. Acute on chronic diastolic CHF. Lasix Questionable history of c. diff. Will get stool c. diff before discharge. Full code status History Interval history: Patient with acute stroke, still very lethargic Hospitalist Physical - Physical exam Narrative exam: Gen: not in acute distress HEENT: normocephalic,atraumatic Neck :supple, no JVD Lungs: clear to auscultation bilaterally, no crackles no wheezes Heart: S1 and S2 regular, no murmurs no gallops, Abdomen: soft nontender, nondistended, normal bowel sounds Extremities: no edema, no clubbing or cyanosis Neuro: Lethargic, aphasia - Constitutional Vitals: Temp Pulse Resp BP Pulse Ox 97.5 F L 88 16 127/74 97 06/06/16 07:35 06/06/16 11:32 06/06/16 07:35 06/06/16 07:35 06/06/16 07:35 Results - Labs CBC & Chem 7: 06/05/16 04:55 06/05/16 04:55 Labs: Laboratory Last Values WBC 8.1 K/mm3 (4.5-11.0) 06/05/16 04:55 RBC 3.36 M/mm3 (3.65-5.03) L 06/05/16 04:55 Hgb 8.5 gm/dl (10.1-14.3) L 06/05/16 04:55 Hct 26.7 % (30.3-42.9) L 06/05/16 04:55 MCV 79 fl (79-97) 06/05/16 04:55 MCH 25 pg (28-32) L 06/05/16 04:55 MCHC 32 % (30-34) 06/05/16 04:55 RDW 20.2 % (13.2-15.2) H 06/05/16 04:55 Plt Count 257 K/mm3 (140-440) 06/05/16 04:55 Lymph % (Auto) 19.6 % (13.4-35.0) 06/05/16 04:55 [place] % (Auto) 11.1 % (0.0-7.3) H 06/05/16 04:55 Eos % (Auto) 1.5 % (0.0-4.3) 06/05/16 04:55 Baso % (Auto) 0.6 % (0.0-1.8) 06/05/16 04:55 Lymph # 1.6 K/mm3 (1.2-5.4) 06/05/16 04:55 [place] # 0.9 K/mm3 (0.0-0.8) H 06/05/16 04:55 Eos # 0.1 K/mm3 (0.0-0.4) 06/05/16 04:55 Baso # 0.0 K/mm3 (0.0-0.1) 06/05/16 04:55 Add Manual Diff Complete 06/01/16 08:21 Total Counted 100 06/01/16 08:21 Seg Neutrophils % 67.2 % (40.0-70.0) 06/05/16 04:55 Seg Neuts % (Manual) 87.0 % (40.0-70.0) H 06/01/16 08:21 Band Neutrophils % 0 % 06/01/16 08:21 Lymphocytes % (Manual) 8.0 % (13.4-35.0) L 06/01/16 08:21 Reactive Lymphs % (Man) 0 % 06/01/16 08:21 Monocytes % (Manual) 3.0 % (0.0-7.3) 06/01/16 08:21 Eosinophils % (Manual) 1.0 % (0.0-4.3) 06/01/16 08:21 Basophils % (Manual) 1.0 % (0.0-1.8) 06/01/16 08:21 Metamyelocytes % 0 % 06/01/16 08:21 Myelocytes % 0 % 06/01/16 08:21 Promyelocytes % 0 % 06/01/16 08:21 Blast Cells % 0 % 06/01/16 08:21 Nucleated RBC % Not Reportable 06/01/16 08:21 Seg Neutrophils # 5.4 K/mm3 (1.8-7.7) 06/05/16 04:55 Seg Neutrophils # Man 10.7 K/mm3 (1.8-7.7) H 06/01/16 08:21 Band Neutrophils # 0.0 K/mm3 06/01/16 08:21 Lymphocytes # (Manual) 1.0 K/mm3 (1.2-5.4) L 06/01/16 08:21 Abs React Lymphs (Man) 0.0 K/mm3 06/01/16 08:21 Monocytes # (Manual) 0.4 K/mm3 (0.0-0.8) 06/01/16 08:21 Eosinophils # (Manual) 0.1 K/mm3 (0.0-0.4) 06/01/16 08:21 Basophils # (Manual) 0.1 K/mm3 (0.0-0.1) 06/01/16 08:21 Metamyelocytes # 0.0 K/mm3 06/01/16 08:21 Myelocytes # 0.0 K/mm3 06/01/16 08:21 Promyelocytes # 0.0 K/mm3 06/01/16 08:21 Blast Cells # 0.0 K/mm3 06/01/16 08:21 WBC Morphology Not Reportable 06/01/16 08:21 Hypersegmented Neuts Not Reportable 06/01/16 08:21 Hyposegmented Neuts Not Reportable 06/01/16 08:21 Hypogranular Neuts Not Reportable 06/01/16 08:21 Smudge Cells Not Reportable 06/01/16 08:21 Toxic Granulation Not Reportable 06/01/16 08:21 Toxic Vacuolation Not Reportable 06/01/16 08:21 Dohle Bodies Not Reportable 06/01/16 08:21 Pelger-Huet Anomaly Not Reportable 06/01/16 08:21 Rene Rods Not Reportable 06/01/16 08:21 Platelet Estimate Cons 06/01/16 08:21 Clumped Platelets Not Reportable 06/01/16 08:21 Plt Clumps, EDTA Not Reportable 06/01/16 08:21 Large Platelets Few 06/01/16 08:21 Giant Platelets Rare 06/01/16 08:21 Platelet Satelliting Not Reportable 06/01/16 08:21 Plt Morphology Comment Not Reportable 06/01/16 08:21 RBC Morphology Not Reportable 06/01/16 08:21 Dimorphic RBCs Not Reportable 06/01/16 08:21 Polychromasia Rare 06/01/16 08:21 Hypochromasia 1+ 06/01/16 08:21 Poikilocytosis Not Reportable 06/01/16 08:21 Anisocytosis 2+ 06/01/16 08:21 Microcytosis Not Reportable 06/01/16 08:21 Macrocytosis Not Reportable 06/01/16 08:21 Spherocytes Not Reportable 06/01/16 08:21 Pappenheimer Bodies Not Reportable 06/01/16 08:21 Sickle Cells Not Reportable 06/01/16 08:21 Target Cells Not Reportable 06/01/16 08:21 Tear Drop Cells Not Reportable 06/01/16 08:21 Ovalocytes Not Reportable 06/01/16 08:21 Helmet Cells Not Reportable 06/01/16 08:21 [place] Bodies Not Reportable 06/01/16 08:21 [place] Rings Not Reportable 06/01/16 08:21 Ric Cells Not Reportable 06/01/16 08:21 Bite Cells Not Reportable 06/01/16 08:21 Crenated Cell Not Reportable 06/01/16 08:21 Elliptocytes Not Reportable 06/01/16 08:21 Acanthocytes (Spur) Not Reportable 06/01/16 08:21 Rouleaux Not Reportable 06/01/16 08:21 Hemoglobin C Crystals Not Reportable 06/01/16 08:21 Schistocytes Not Reportable 06/01/16 08:21 Malaria parasites Not Reportable 06/01/16 08:21 Ajay Bodies Not Reportable 06/01/16 08:21 Hem Pathologist Commnt No 06/01/16 08:21 PT 16.4 Sec. (12.2-14.9) H 05/31/16 10:56 INR 1.33 (0.87-1.13) H 05/31/16 10:56 APTT 26.6 Sec. (24.2-36.6) 05/31/16 10:56 Sodium 138 mmol/L (137-145) 06/05/16 04:55 Potassium 3.9 mmol/L (3.6-5.0) 06/05/16 04:55 Chloride 104.2 mmol/L (98-107) 06/05/16 04:55 Carbon Dioxide 22 mmol/L (22-30) 06/05/16 04:55 Anion Gap 16 mmol/L 06/05/16 04:55 BUN 10 mg/dL (7-17) 06/05/16 04:55 Creatinine 0.6 mg/dL (0.7-1.2) L 06/05/16 04:55 Estimated GFR > 60 ml/min 06/05/16 04:55 BUN/Creatinine Ratio 16.66 % 06/05/16 04:55 Glucose 116 mg/dL (65-100) H 06/05/16 04:55 POC Glucose 146 (70-105) H 06/06/16 06:15 Hemoglobin A1c 5.2 % (4-6) 06/03/16 09:15 Lactic Acid 2.9 mmol/L (0.7-2.0) H* 05/31/16 13:02 Calcium 7.8 mg/dL (8.4-10.2) L 06/05/16 04:55 Total Bilirubin 1.0 mg/dL (0.1-1.2) 05/31/16 11:41 AST 28 units/L (5-40) 05/31/16 11:41 ALT 11 units/L (7-56) 05/31/16 11:41 Alkaline Phosphatase 82 units/L (35-129) 05/31/16 11:41 Ammonia 20.0 umol/L (25-60) L 05/31/16 11:41 Total Creatine Kinase 173 units/L (30-135) H 05/31/16 11:41 Troponin T < 0.010 ng/mL (0.00-0.029) 05/31/16 11:41 Total Protein 7.0 g/dL (6.3-8.2) 05/31/16 11:41 Albumin 3.3 g/dL (3.9-5) L 05/31/16 11:41 Albumin/Globulin Ratio 0.9 % 05/31/16 11:41 Triglycerides 68 mg/dL (2-149) 06/02/16 08:14 Cholesterol 127 mg/dL (50-199) 06/02/16 08:14 LDL Cholesterol Direct 79 mg/dL (50-130) 06/02/16 08:14 HDL Cholesterol 35 mg/dL (40-59) L 06/02/16 08:14 Cholesterol/HDL Ratio 3.62 % 06/02/16 08:14 TSH 0.869 mlU/mL (0.270-4.200) 05/31/16 10:56 Urine Color [place] (Yellow) 05/31/16 10:46 Urine Turbidity Clear (Clear) 05/31/16 10:46 Urine pH 5.0 (5.0-7.0) 05/31/16 10:46 Ur Specific [place] 1.023 (1.003-1.030) 05/31/16 10:46 Urine Protein 30 mg/dl mg/dL (Negative) 05/31/16 10:46 Urine Glucose (UA) Neg mg/dL (Negative) 05/31/16 10:46 Urine Ketones Neg mg/dL (Negative) 05/31/16 10:46 Urine Blood Mod (Negative) 05/31/16 10:46 Urine Nitrite Pos (Negative) 05/31/16 10:46 Urine Bilirubin Neg (Negative) 05/31/16 10:46 Urine Urobilinogen < 2.0 mg/dL (<2.0) 05/31/16 10:46 Ur Leukocyte Esterase Tr (Negative) 05/31/16 10:46 Urine WBC (Auto) 6.0 /HPF (0.0-6.0) 05/31/16 10:46 Urine RBC (Auto) 6.0 /HPF (0.0-6.0) 05/31/16 10:46 Urine Mucus Few /HPF 05/31/16 10:46
[2016-06-06] MEDS: ZOCOR PO SCH (22:28)
[2016-06-07] MEDS ORDERED: DULCOLAX PR ONE (09:35)
[2016-06-07] MEDS ORDERED: MIRALAX 3350 PO ONE (09:35)
[2016-06-07] MEDS: COREG PO SCH ×2 (10:00→22:28)
[2016-06-07] MEDS: COZAAR PO SCH (10:00)
[2016-06-07] MEDS: LASIX IV SCH (10:23)
[2016-06-07] MEDS: PRADAXA PO SCH ×2 (10:23→22:28)
--- NOTE | 2016-06-07 15:18 | Progress Note ---
Assessment and Plan Assessment and plan: Acute ischemic stroke. On Pradaxa. Still not discharged to SNF because could not get specimen for stool c diff Hypertension. BP stable Chronic atrial fibrillation. Continue Pradaxa. Acute on chronic diastolic CHF. Lasix Questionable history of c. diff. Will need to get get stool c. diff before discharge. Yesterday had stool but stool was too hard so specimen rejected by lab. Gave Miralax, Duklcolax supp. Will now add milk of mag Full code status History Interval history: Patient with acute stroke, still very lethargic Hospitalist Physical - Physical exam Narrative exam: Gen: not in acute distress HEENT: normocephalic,atraumatic Neck :supple, no JVD Lungs: clear to auscultation bilaterally, no crackles no wheezes Heart: S1 and S2 regular, no murmurs no gallops, Abdomen: soft nontender, nondistended, normal bowel sounds Extremities: no edema, no clubbing or cyanosis Neuro: Lethargic, aphasia - Constitutional Vitals: Temp Pulse Resp BP Pulse Ox 97.4 F L 42 L 18 149/103 70 L 06/07/16 08:00 06/07/16 08:00 06/07/16 08:00 06/07/16 08:00 06/07/16 08:00 Results - Labs CBC & Chem 7: 06/05/16 04:55 06/05/16 04:55 Labs: Laboratory Last Values WBC 8.1 K/mm3 (4.5-11.0) 06/05/16 04:55 RBC 3.36 M/mm3 (3.65-5.03) L 06/05/16 04:55 Hgb 8.5 gm/dl (10.1-14.3) L 06/05/16 04:55 Hct 26.7 % (30.3-42.9) L 06/05/16 04:55 MCV 79 fl (79-97) 06/05/16 04:55 MCH 25 pg (28-32) L 06/05/16 04:55 MCHC 32 % (30-34) 06/05/16 04:55 RDW 20.2 % (13.2-15.2) H 06/05/16 04:55 Plt Count 257 K/mm3 (140-440) 06/05/16 04:55 Lymph % (Auto) 19.6 % (13.4-35.0) 06/05/16 04:55 [place] % (Auto) 11.1 % (0.0-7.3) H 06/05/16 04:55 Eos % (Auto) 1.5 % (0.0-4.3) 06/05/16 04:55 Baso % (Auto) 0.6 % (0.0-1.8) 06/05/16 04:55 Lymph # 1.6 K/mm3 (1.2-5.4) 06/05/16 04:55 [place] # 0.9 K/mm3 (0.0-0.8) H 06/05/16 04:55 Eos # 0.1 K/mm3 (0.0-0.4) 06/05/16 04:55 Baso # 0.0 K/mm3 (0.0-0.1) 06/05/16 04:55 Add Manual Diff Complete 06/01/16 08:21 Total Counted 100 06/01/16 08:21 Seg Neutrophils % 67.2 % (40.0-70.0) 06/05/16 04:55 Seg Neuts % (Manual) 87.0 % (40.0-70.0) H 06/01/16 08:21 Band Neutrophils % 0 % 06/01/16 08:21 Lymphocytes % (Manual) 8.0 % (13.4-35.0) L 06/01/16 08:21 Reactive Lymphs % (Man) 0 % 06/01/16 08:21 Monocytes % (Manual) 3.0 % (0.0-7.3) 06/01/16 08:21 Eosinophils % (Manual) 1.0 % (0.0-4.3) 06/01/16 08:21 Basophils % (Manual) 1.0 % (0.0-1.8) 06/01/16 08:21 Metamyelocytes % 0 % 06/01/16 08:21 Myelocytes % 0 % 06/01/16 08:21 Promyelocytes % 0 % 06/01/16 08:21 Blast Cells % 0 % 06/01/16 08:21 Nucleated RBC % Not Reportable 06/01/16 08:21 Seg Neutrophils # 5.4 K/mm3 (1.8-7.7) 06/05/16 04:55 Seg Neutrophils # Man 10.7 K/mm3 (1.8-7.7) H 06/01/16 08:21 Band Neutrophils # 0.0 K/mm3 06/01/16 08:21 Lymphocytes # (Manual) 1.0 K/mm3 (1.2-5.4) L 06/01/16 08:21 Abs React Lymphs (Man) 0.0 K/mm3 06/01/16 08:21 Monocytes # (Manual) 0.4 K/mm3 (0.0-0.8) 06/01/16 08:21 Eosinophils # (Manual) 0.1 K/mm3 (0.0-0.4) 06/01/16 08:21 Basophils # (Manual) 0.1 K/mm3 (0.0-0.1) 06/01/16 08:21 Metamyelocytes # 0.0 K/mm3 06/01/16 08:21 Myelocytes # 0.0 K/mm3 06/01/16 08:21 Promyelocytes # 0.0 K/mm3 06/01/16 08:21 Blast Cells # 0.0 K/mm3 06/01/16 08:21 WBC Morphology Not Reportable 06/01/16 08:21 Hypersegmented Neuts Not Reportable 06/01/16 08:21 Hyposegmented Neuts Not Reportable 06/01/16 08:21 Hypogranular Neuts Not Reportable 06/01/16 08:21 Smudge Cells Not Reportable 06/01/16 08:21 Toxic Granulation Not Reportable 06/01/16 08:21 Toxic Vacuolation Not Reportable 06/01/16 08:21 Dohle Bodies Not Reportable 06/01/16 08:21 Pelger-Huet Anomaly Not Reportable 06/01/16 08:21 Rene Rods Not Reportable 06/01/16 08:21 Platelet Estimate Cons 06/01/16 08:21 Clumped Platelets Not Reportable 06/01/16 08:21 Plt Clumps, EDTA Not Reportable 06/01/16 08:21 Large Platelets Few 06/01/16 08:21 Giant Platelets Rare 06/01/16 08:21 Platelet Satelliting Not Reportable 06/01/16 08:21 Plt Morphology Comment Not Reportable 06/01/16 08:21 RBC Morphology Not Reportable 06/01/16 08:21 Dimorphic RBCs Not Reportable 06/01/16 08:21 Polychromasia Rare 06/01/16 08:21 Hypochromasia 1+ 06/01/16 08:21 Poikilocytosis Not Reportable 06/01/16 08:21 Anisocytosis 2+ 06/01/16 08:21 Microcytosis Not Reportable 06/01/16 08:21 Macrocytosis Not Reportable 06/01/16 08:21 Spherocytes Not Reportable 06/01/16 08:21 Pappenheimer Bodies Not Reportable 06/01/16 08:21 Sickle Cells Not Reportable 06/01/16 08:21 Target Cells Not Reportable 06/01/16 08:21 Tear Drop Cells Not Reportable 06/01/16 08:21 Ovalocytes Not Reportable 06/01/16 08:21 Helmet Cells Not Reportable 06/01/16 08:21 Maldon[place] Bodies Not Reportable 06/01/16 08:21 [place] Rings Not Reportable 06/01/16 08:21 [place] Cells Not Reportable 06/01/16 08:21 Bite Cells Not Reportable 06/01/16 08:21 Crenated Cell Not Reportable 06/01/16 08:21 Elliptocytes Not Reportable 06/01/16 08:21 Acanthocytes (Spur) Not Reportable 06/01/16 08:21 Rouleaux Not Reportable 06/01/16 08:21 Hemoglobin C Crystals Not Reportable 06/01/16 08:21 Schistocytes Not Reportable 06/01/16 08:21 Malaria parasites Not Reportable 06/01/16 08:21 Ajay Bodies Not Reportable 06/01/16 08:21 Hem Pathologist Commnt No 06/01/16 08:21 PT 16.4 Sec. (12.2-14.9) H 05/31/16 10:56 INR 1.33 (0.87-1.13) H 05/31/16 10:56 APTT 26.6 Sec. (24.2-36.6) 05/31/16 10:56 Sodium 138 mmol/L (137-145) 06/05/16 04:55 Potassium 3.9 mmol/L (3.6-5.0) 06/05/16 04:55 Chloride 104.2 mmol/L (98-107) 06/05/16 04:55 Carbon Dioxide 22 mmol/L (22-30) 06/05/16 04:55 Anion Gap 16 mmol/L 06/05/16 04:55 BUN 10 mg/dL (7-17) 06/05/16 04:55 Creatinine 0.6 mg/dL (0.7-1.2) L 06/05/16 04:55 Estimated GFR > 60 ml/min 06/05/16 04:55 BUN/Creatinine Ratio 16.66 % 06/05/16 04:55 Glucose 116 mg/dL (65-100) H 06/05/16 04:55 POC Glucose 146 (70-105) H 06/06/16 06:15 Hemoglobin A1c 5.2 % (4-6) 06/03/16 09:15 Lactic Acid 2.9 mmol/L (0.7-2.0) H* 05/31/16 13:02 Calcium 7.8 mg/dL (8.4-10.2) L 06/05/16 04:55 Total Bilirubin 1.0 mg/dL (0.1-1.2) 05/31/16 11:41 AST 28 units/L (5-40) 05/31/16 11:41 ALT 11 units/L (7-56) 05/31/16 11:41 Alkaline Phosphatase 82 units/L (35-129) 05/31/16 11:41 Ammonia 20.0 umol/L (25-60) L 05/31/16 11:41 Total Creatine Kinase 173 units/L (30-135) H 05/31/16 11:41 Troponin T < 0.010 ng/mL (0.00-0.029) 05/31/16 11:41 Total Protein 7.0 g/dL (6.3-8.2) 05/31/16 11:41 Albumin 3.3 g/dL (3.9-5) L 05/31/16 11:41 Albumin/Globulin Ratio 0.9 % 05/31/16 11:41 Triglycerides 68 mg/dL (2-149) 06/02/16 08:14 Cholesterol 127 mg/dL (50-199) 06/02/16 08:14 LDL Cholesterol Direct 79 mg/dL (50-130) 06/02/16 08:14 HDL Cholesterol 35 mg/dL (40-59) L 06/02/16 08:14 Cholesterol/HDL Ratio 3.62 % 06/02/16 08:14 TSH 0.869 mlU/mL (0.270-4.200) 05/31/16 10:56 Urine Color [place] (Yellow) 05/31/16 10:46 Urine Turbidity Clear (Clear) 05/31/16 10:46 Urine pH 5.0 (5.0-7.0) 05/31/16 10:46 Ur Specific [place] 1.023 (1.003-1.030) 05/31/16 10:46 Urine Protein 30 mg/dl mg/dL (Negative) 05/31/16 10:46 Urine Glucose (UA) Neg mg/dL (Negative) 05/31/16 10:46 Urine Ketones Neg mg/dL (Negative) 05/31/16 10:46 Urine Blood Mod (Negative) 05/31/16 10:46 Urine Nitrite Pos (Negative) 05/31/16 10:46 Urine Bilirubin Neg (Negative) 05/31/16 10:46 Urine Urobilinogen < 2.0 mg/dL (<2.0) 05/31/16 10:46 Ur Leukocyte Esterase Tr (Negative) 05/31/16 10:46 Urine WBC (Auto) 6.0 /HPF (0.0-6.0) 05/31/16 10:46 Urine RBC (Auto) 6.0 /HPF (0.0-6.0) 05/31/16 10:46 Urine Mucus Few /HPF 05/31/16 10:46
[2016-06-07] MEDS: ZOCOR PO SCH (22:27)
[2016-06-08] MEDS: MIRALAX 3350 PO SCH ×3 (00:50→22:35)
[2016-06-08] MEDS: MILK OF MAGNESIA PO SCH ×6 (00:51→20:57)
[2016-06-08] MEDS: MILK OF MAGNESIA PO PRN ×3 (08:25→15:04)
[2016-06-08] MEDS: LASIX IV SCH (10:47)
[2016-06-08] MEDS: PRADAXA PO SCH ×2 (10:47→22:33)
[2016-06-08] MEDS: COZAAR PO SCH (10:48)
[2016-06-08] MEDS: COREG PO SCH ×2 (10:48→22:34)
[2016-06-08] MEDS: ZOCOR PO SCH (22:34)
--- NOTE | 2016-06-09 00:01 | Progress Note ---
Assessment and Plan Assessment and plan: Acute ischemic stroke. On Pradaxa. Still not discharged to SNF because could not get specimen for stool c diff. She is medically stable for discharge. Hypertension. BP stable Chronic atrial fibrillation. Continue Pradaxa. Acute on chronic diastolic CHF. Lasix Questionable history of c. diff. Will need to get get stool c. diff before discharge. Gave Miralax, Duklcolax supp, milk of mag Full code status History Interval history: Patient with acute stroke, still very lethargic Hospitalist Physical - Physical exam Narrative exam: Gen: not in acute distress HEENT: normocephalic,atraumatic Neck :supple, no JVD Lungs: clear to auscultation bilaterally, no crackles no wheezes Heart: S1 and S2 regular, no murmurs no gallops, Abdomen: soft nontender, nondistended, normal bowel sounds Extremities: no edema, no clubbing or cyanosis Neuro: Awake, aphasia - Constitutional Vitals: Temp Pulse Resp BP Pulse Ox 97.8 F 90 20 122/80 95 06/08/16 20:05 06/08/16 22:34 06/08/16 20:05 06/08/16 22:34 06/08/16 20:24 Results - Labs CBC & Chem 7: 06/05/16 04:55 06/05/16 04:55 Labs: Laboratory Last Values WBC 8.1 K/mm3 (4.5-11.0) 06/05/16 04:55 RBC 3.36 M/mm3 (3.65-5.03) L 06/05/16 04:55 Hgb 8.5 gm/dl (10.1-14.3) L 06/05/16 04:55 Hct 26.7 % (30.3-42.9) L 06/05/16 04:55 MCV 79 fl (79-97) 06/05/16 04:55 MCH 25 pg (28-32) L 06/05/16 04:55 MCHC 32 % (30-34) 06/05/16 04:55 RDW 20.2 % (13.2-15.2) H 06/05/16 04:55 Plt Count 257 K/mm3 (140-440) 06/05/16 04:55 Lymph % (Auto) 19.6 % (13.4-35.0) 06/05/16 04:55 [place] % (Auto) 11.1 % (0.0-7.3) H 06/05/16 04:55 Eos % (Auto) 1.5 % (0.0-4.3) 06/05/16 04:55 Baso % (Auto) 0.6 % (0.0-1.8) 06/05/16 04:55 Lymph # 1.6 K/mm3 (1.2-5.4) 06/05/16 04:55 [place] # 0.9 K/mm3 (0.0-0.8) H 06/05/16 04:55 Eos # 0.1 K/mm3 (0.0-0.4) 06/05/16 04:55 Baso # 0.0 K/mm3 (0.0-0.1) 06/05/16 04:55 Add Manual Diff Complete 06/01/16 08:21 Total Counted 100 06/01/16 08:21 Seg Neutrophils % 67.2 % (40.0-70.0) 06/05/16 04:55 Seg Neuts % (Manual) 87.0 % (40.0-70.0) H 06/01/16 08:21 Band Neutrophils % 0 % 06/01/16 08:21 Lymphocytes % (Manual) 8.0 % (13.4-35.0) L 06/01/16 08:21 Reactive Lymphs % (Man) 0 % 06/01/16 08:21 Monocytes % (Manual) 3.0 % (0.0-7.3) 06/01/16 08:21 Eosinophils % (Manual) 1.0 % (0.0-4.3) 06/01/16 08:21 Basophils % (Manual) 1.0 % (0.0-1.8) 06/01/16 08:21 Metamyelocytes % 0 % 06/01/16 08:21 Myelocytes % 0 % 06/01/16 08:21 Promyelocytes % 0 % 06/01/16 08:21 Blast Cells % 0 % 06/01/16 08:21 Nucleated RBC % Not Reportable 06/01/16 08:21 Seg Neutrophils # 5.4 K/mm3 (1.8-7.7) 06/05/16 04:55 Seg Neutrophils # Man 10.7 K/mm3 (1.8-7.7) H 06/01/16 08:21 Band Neutrophils # 0.0 K/mm3 06/01/16 08:21 Lymphocytes # (Manual) 1.0 K/mm3 (1.2-5.4) L 06/01/16 08:21 Abs React Lymphs (Man) 0.0 K/mm3 06/01/16 08:21 Monocytes # (Manual) 0.4 K/mm3 (0.0-0.8) 06/01/16 08:21 Eosinophils # (Manual) 0.1 K/mm3 (0.0-0.4) 06/01/16 08:21 Basophils # (Manual) 0.1 K/mm3 (0.0-0.1) 06/01/16 08:21 Metamyelocytes # 0.0 K/mm3 06/01/16 08:21 Myelocytes # 0.0 K/mm3 06/01/16 08:21 Promyelocytes # 0.0 K/mm3 06/01/16 08:21 Blast Cells # 0.0 K/mm3 06/01/16 08:21 WBC Morphology Not Reportable 06/01/16 08:21 Hypersegmented Neuts Not Reportable 06/01/16 08:21 Hyposegmented Neuts Not Reportable 06/01/16 08:21 Hypogranular Neuts Not Reportable 06/01/16 08:21 Smudge Cells Not Reportable 06/01/16 08:21 Toxic Granulation Not Reportable 06/01/16 08:21 Toxic Vacuolation Not Reportable 06/01/16 08:21 Dohle Bodies Not Reportable 06/01/16 08:21 Pelger-Huet Anomaly Not Reportable 06/01/16 08:21 Rene Rods Not Reportable 06/01/16 08:21 Platelet Estimate Cons 06/01/16 08:21 Clumped Platelets Not Reportable 06/01/16 08:21 Plt Clumps, EDTA Not Reportable 06/01/16 08:21 Large Platelets Few 06/01/16 08:21 Giant Platelets Rare 06/01/16 08:21 Platelet Satelliting Not Reportable 06/01/16 08:21 Plt Morphology Comment Not Reportable 06/01/16 08:21 RBC Morphology Not Reportable 06/01/16 08:21 Dimorphic RBCs Not Reportable 06/01/16 08:21 Polychromasia Rare 06/01/16 08:21 Hypochromasia 1+ 06/01/16 08:21 Poikilocytosis Not Reportable 06/01/16 08:21 Anisocytosis 2+ 06/01/16 08:21 Microcytosis Not Reportable 06/01/16 08:21 Macrocytosis Not Reportable 06/01/16 08:21 Spherocytes Not Reportable 06/01/16 08:21 Pappenheimer Bodies Not Reportable 06/01/16 08:21 Sickle Cells Not Reportable 06/01/16 08:21 Target Cells Not Reportable 06/01/16 08:21 Tear Drop Cells Not Reportable 06/01/16 08:21 Ovalocytes Not Reportable 06/01/16 08:21 Helmet Cells Not Reportable 06/01/16 08:21 Maldonado-[place] Bodies Not Reportable 06/01/16 08:21 [place] Rings Not Reportable 06/01/16 08:21 Ric Cells Not Reportable 06/01/16 08:21 Bite Cells Not Reportable 06/01/16 08:21 Crenated Cell Not Reportable 06/01/16 08:21 Elliptocytes Not Reportable 06/01/16 08:21 Acanthocytes (Spur) Not Reportable 06/01/16 08:21 Rouleaux Not Reportable 06/01/16 08:21 Hemoglobin C Crystals Not Reportable 06/01/16 08:21 Schistocytes Not Reportable 06/01/16 08:21 Malaria parasites Not Reportable 06/01/16 08:21 Ajay Bodies Not Reportable 06/01/16 08:21 Hem Pathologist Commnt No 06/01/16 08:21 PT 16.4 Sec. (12.2-14.9) H 05/31/16 10:56 INR 1.33 (0.87-1.13) H 05/31/16 10:56 APTT 26.6 Sec. (24.2-36.6) 05/31/16 10:56 Sodium 138 mmol/L (137-145) 06/05/16 04:55 Potassium 3.9 mmol/L (3.6-5.0) 06/05/16 04:55 Chloride 104.2 mmol/L (98-107) 06/05/16 04:55 Carbon Dioxide 22 mmol/L (22-30) 06/05/16 04:55 Anion Gap 16 mmol/L 06/05/16 04:55 BUN 10 mg/dL (7-17) 06/05/16 04:55 Creatinine 0.6 mg/dL (0.7-1.2) L 06/05/16 04:55 Estimated GFR > 60 ml/min 06/05/16 04:55 BUN/Creatinine Ratio 16.66 % 06/05/16 04:55 Glucose 116 mg/dL (65-100) H 06/05/16 04:55 POC Glucose 146 (70-105) H 06/06/16 06:15 Hemoglobin A1c 5.2 % (4-6) 06/03/16 09:15 Lactic Acid 2.9 mmol/L (0.7-2.0) H* 05/31/16 13:02 Calcium 7.8 mg/dL (8.4-10.2) L 06/05/16 04:55 Total Bilirubin 1.0 mg/dL (0.1-1.2) 05/31/16 11:41 AST 28 units/L (5-40) 05/31/16 11:41 ALT 11 units/L (7-56) 05/31/16 11:41 Alkaline Phosphatase 82 units/L (35-129) 05/31/16 11:41 Ammonia 20.0 umol/L (25-60) L 05/31/16 11:41 Total Creatine Kinase 173 units/L (30-135) H 05/31/16 11:41 Troponin T < 0.010 ng/mL (0.00-0.029) 05/31/16 11:41 Total Protein 7.0 g/dL (6.3-8.2) 05/31/16 11:41 Albumin 3.3 g/dL (3.9-5) L 05/31/16 11:41 Albumin/Globulin Ratio 0.9 % 05/31/16 11:41 Triglycerides 68 mg/dL (2-149) 06/02/16 08:14 Cholesterol 127 mg/dL (50-199) 06/02/16 08:14 LDL Cholesterol Direct 79 mg/dL (50-130) 06/02/16 08:14 HDL Cholesterol 35 mg/dL (40-59) L 06/02/16 08:14 Cholesterol/HDL Ratio 3.62 % 06/02/16 08:14 TSH 0.869 mlU/mL (0.270-4.200) 05/31/16 10:56 Urine Color [place] (Yellow) 05/31/16 10:46 Urine Turbidity Clear (Clear) 05/31/16 10:46 Urine pH 5.0 (5.0-7.0) 05/31/16 10:46 Ur Specific [place] 1.023 (1.003-1.030) 05/31/16 10:46 Urine Protein 30 mg/dl mg/dL (Negative) 05/31/16 10:46 Urine Glucose (UA) Neg mg/dL (Negative) 05/31/16 10:46 Urine Ketones Neg mg/dL (Negative) 05/31/16 10:46 Urine Blood Mod (Negative) 05/31/16 10:46 Urine Nitrite Pos (Negative) 05/31/16 10:46 Urine Bilirubin Neg (Negative) 05/31/16 10:46 Urine Urobilinogen < 2.0 mg/dL (<2.0) 05/31/16 10:46 Ur Leukocyte Esterase Tr (Negative) 05/31/16 10:46 Urine WBC (Auto) 6.0 /HPF (0.0-6.0) 05/31/16 10:46 Urine RBC (Auto) 6.0 /HPF (0.0-6.0) 05/31/16 10:46 Urine Mucus Few /HPF 05/31/16 10:46
[2016-06-09] MEDS: MILK OF MAGNESIA PO SCH ×2 (00:14→04:27)
[2016-06-09] MEDS: COZAAR PO SCH (12:01)
[2016-06-09] MEDS: MIRALAX 3350 PO SCH (12:01)
[2016-06-09] MEDS: COREG PO SCH ×2 (12:07→13:07)
[2016-06-09] MEDS: PRADAXA PO SCH (12:08)
[2016-06-09] MEDS: LASIX IV SCH (12:10)
--- NOTE | 2016-06-09 16:35 | Progress Note ---
Hospitalist Physical - Constitutional Vitals: Temp Pulse Resp BP Pulse Ox 98.3 F 86 20 117/74 100 06/09/16 08:00 06/09/16 13:07 06/09/16 08:00 06/09/16 13:07 06/09/16 08:00 Results - Labs CBC & Chem 7: 06/05/16 04:55 06/05/16 04:55 Labs: Laboratory Last Values WBC 8.1 K/mm3 (4.5-11.0) 06/05/16 04:55 RBC 3.36 M/mm3 (3.65-5.03) L 06/05/16 04:55 Hgb 8.5 gm/dl (10.1-14.3) L 06/05/16 04:55 Hct 26.7 % (30.3-42.9) L 06/05/16 04:55 MCV 79 fl (79-97) 06/05/16 04:55 MCH 25 pg (28-32) L 06/05/16 04:55 MCHC 32 % (30-34) 06/05/16 04:55 RDW 20.2 % (13.2-15.2) H 06/05/16 04:55 Plt Count 257 K/mm3 (140-440) 06/05/16 04:55 Lymph % (Auto) 19.6 % (13.4-35.0) 06/05/16 04:55 [place] % (Auto) 11.1 % (0.0-7.3) H 06/05/16 04:55 Eos % (Auto) 1.5 % (0.0-4.3) 06/05/16 04:55 Baso % (Auto) 0.6 % (0.0-1.8) 06/05/16 04:55 Lymph # 1.6 K/mm3 (1.2-5.4) 06/05/16 04:55 [place] # 0.9 K/mm3 (0.0-0.8) H 06/05/16 04:55 Eos # 0.1 K/mm3 (0.0-0.4) 06/05/16 04:55 Baso # 0.0 K/mm3 (0.0-0.1) 06/05/16 04:55 Add Manual Diff Complete 06/01/16 08:21 Total Counted 100 03/09/17 08:21 Seg Neutrophils % 67.2 % (40.0-70.0) 06/05/16 04:55 Seg Neuts % (Manual) 87.0 % (40.0-70.0) H 06/01/16 08:21 Band Neutrophils % 0 % 06/01/16 08:21 Lymphocytes % (Manual) 8.0 % (13.4-35.0) L 06/01/16 08:21 Reactive Lymphs % (Man) 0 % 06/01/16 08:21 Monocytes % (Manual) 3.0 % (0.0-7.3) 06/01/16 08:21 Eosinophils % (Manual) 1.0 % (0.0-4.3) 06/01/16 08:21 Basophils % (Manual) 1.0 % (0.0-1.8) 06/01/16 08:21 Metamyelocytes % 0 % 06/01/16 08:21 Myelocytes % 0 % 06/01/16 08:21 Promyelocytes % 0 % 06/01/16 08:21 Blast Cells % 0 % 06/01/16 08:21 Nucleated RBC % Not Reportable 06/01/16 08:21 Seg Neutrophils # 5.4 K/mm3 (1.8-7.7) 06/05/16 04:55 Seg Neutrophils # Man 10.7 K/mm3 (1.8-7.7) H 06/01/16 08:21 Band Neutrophils # 0.0 K/mm3 06/01/16 08:21 Lymphocytes # (Manual) 1.0 K/mm3 (1.2-5.4) L 06/01/16 08:21 Abs React Lymphs (Man) 0.0 K/mm3 06/01/16 08:21 Monocytes # (Manual) 0.4 K/mm3 (0.0-0.8) 06/01/16 08:21 Eosinophils # (Manual) 0.1 K/mm3 (0.0-0.4) 06/01/16 08:21 Basophils # (Manual) 0.1 K/mm3 (0.0-0.1) 06/01/16 08:21 Metamyelocytes # 0.0 K/mm3 06/01/16 08:21 Myelocytes # 0.0 K/mm3 06/01/16 08:21 Promyelocytes # 0.0 K/mm3 06/01/16 08:21 Blast Cells # 0.0 K/mm3 06/01/16 08:21 WBC Morphology Not Reportable 06/01/16 08:21 Hypersegmented Neuts Not Reportable 06/01/16 08:21 Hyposegmented Neuts Not Reportable 06/01/16 08:21 Hypogranular Neuts Not Reportable 06/01/16 08:21 Smudge Cells Not Reportable 06/01/16 08:21 Toxic Granulation Not Reportable 06/01/16 08:21 Toxic Vacuolation Not Reportable 06/01/16 08:21 Dohle Bodies Not Reportable 06/01/16 08:21 Pelger-Huet Anomaly Not Reportable 06/01/16 08:21 Rene Rods Not Reportable 06/01/16 08:21 Platelet Estimate Cons 06/01/16 08:21 Clumped Platelets Not Reportable 06/01/16 08:21 Plt Clumps, EDTA Not Reportable 06/01/16 08:21 Large Platelets Few 06/01/16 08:21 Giant Platelets Rare 06/01/16 08:21 Platelet Satelliting Not Reportable 06/01/16 08:21 Plt Morphology Comment Not Reportable 06/01/16 08:21 RBC Morphology Not Reportable 06/01/16 08:21 Dimorphic RBCs Not Reportable 06/01/16 08:21 Polychromasia Rare 06/01/16 08:21 Hypochromasia 1+ 06/01/16 08:21 Poikilocytosis Not Reportable 06/01/16 08:21 Anisocytosis 2+ 06/01/16 08:21 Microcytosis Not Reportable 06/01/16 08:21 Macrocytosis Not Reportable 06/01/16 08:21 Spherocytes Not Reportable 06/01/16 08:21 Pappenheimer Bodies Not Reportable 06/01/16 08:21 Sickle Cells Not Reportable 06/01/16 08:21 Target Cells Not Reportable 06/01/16 08:21 Tear Drop Cells Not Reportable 06/01/16 08:21 Ovalocytes Not Reportable 06/01/16 08:21 Helmet Cells Not Reportable 06/01/16 08:21 Maldonado-[place] Bodies Not Reportable 06/01/16 08:21 [place] Rings Not Reportable 06/01/16 08:21 Ric Cells Not Reportable 06/01/16 08:21 Bite Cells Not Reportable 06/01/16 08:21 Crenated Cell Not Reportable 06/01/16 08:21 Elliptocytes Not Reportable 06/01/16 08:21 Acanthocytes (Spur) Not Reportable 06/01/16 08:21 Rouleaux Not Reportable 06/01/16 08:21 Hemoglobin C Crystals Not Reportable 06/01/16 08:21 Schistocytes Not Reportable 06/01/16 08:21 Malaria parasites Not Reportable 06/01/16 08:21 Ajay Bodies Not Reportable 06/01/16 08:21 Hem Pathologist Commnt No 06/01/16 08:21 PT 16.4 Sec. (12.2-14.9) H 05/31/16 10:56 INR 1.33 (0.87-1.13) H 05/31/16 10:56 APTT 26.6 Sec. (24.2-36.6) 05/31/16 10:56 Sodium 138 mmol/L (137-145) 06/05/16 04:55 Potassium 3.9 mmol/L (3.6-5.0) 06/05/16 04:55 Chloride 104.2 mmol/L (98-107) 06/05/16 04:55 Carbon Dioxide 22 mmol/L (22-30) 06/05/16 04:55 Anion Gap 16 mmol/L 06/05/16 04:55 BUN 10 mg/dL (7-17) 06/05/16 04:55 Creatinine 0.6 mg/dL (0.7-1.2) L 06/05/16 04:55 Estimated GFR > 60 ml/min 06/05/16 04:55 BUN/Creatinine Ratio 16.66 % 06/05/16 04:55 Glucose 116 mg/dL (65-100) H 06/05/16 04:55 POC Glucose 146 (70-105) H 06/06/16 06:15 Hemoglobin A1c 5.2 % (4-6) 06/03/16 09:15 Lactic Acid 2.9 mmol/L (0.7-2.0) H* 05/31/16 13:02 Calcium 7.8 mg/dL (8.4-10.2) L 06/05/16 04:55 Total Bilirubin 1.0 mg/dL (0.1-1.2) 05/31/16 11:41 AST 28 units/L (5-40) 05/31/16 11:41 ALT 11 units/L (7-56) 05/31/16 11:41 Alkaline Phosphatase 82 units/L (35-129) 05/31/16 11:41 Ammonia 20.0 umol/L (25-60) L 05/31/16 11:41 Total Creatine Kinase 173 units/L (30-135) H 05/31/16 11:41 Troponin T < 0.010 ng/mL (0.00-0.029) 05/31/16 11:41 Total Protein 7.0 g/dL (6.3-8.2) 05/31/16 11:41 Albumin 3.3 g/dL (3.9-5) L 05/31/16 11:41 Albumin/Globulin Ratio 0.9 % 05/31/16 11:41 Triglycerides 68 mg/dL (2-149) 06/02/16 08:14 Cholesterol 127 mg/dL (50-199) 06/02/16 08:14 LDL Cholesterol Direct 79 mg/dL (50-130) 06/02/16 08:14 HDL Cholesterol 35 mg/dL (40-59) L 06/02/16 08:14 Cholesterol/HDL Ratio 3.62 % 06/02/16 08:14 TSH 0.869 mlU/mL (0.270-4.200) 05/31/16 10:56 Urine Color [place] (Yellow) 05/31/16 10:46 Urine Turbidity Clear (Clear) 05/31/16 10:46 Urine pH 5.0 (5.0-7.0) 05/31/16 10:46 Ur Specific [place] 1.023 (1.003-1.030) 05/31/16 10:46 Urine Protein 30 mg/dl mg/dL (Negative) 05/31/16 10:46 Urine Glucose (UA) Neg mg/dL (Negative) 05/31/16 10:46 Urine Ketones Neg mg/dL (Negative) 05/31/16 10:46 Urine Blood Mod (Negative) 05/31/16 10:46 Urine Nitrite Pos (Negative) 05/31/16 10:46 Urine Bilirubin Neg (Negative) 05/31/16 10:46 Urine Urobilinogen < 2.0 mg/dL (<2.0) 05/31/16 10:46 Ur Leukocyte Esterase Tr (Negative) 05/31/16 10:46 Urine WBC (Auto) 6.0 /HPF (0.0-6.0) 05/31/16 10:46 Urine RBC (Auto) 6.0 /HPF (0.0-6.0) 05/31/16 10:46 Urine Mucus Few /HPF 05/31/16 10:46
[2016-06-09 18:55] VITALS: BP 117/76
== END 2016-06-09 20:40 | DRG 64 ==
LOC: ED 09:18 → 3A 12:29
PROVIDERS: ADMIT Internal Medicine; ATTEND Internal Medicine
DX: I63.9 Cerebral infarction, unspecified (principal); G93.49 Other encephalopathy; I50.33 Acute on chronic diastolic (congestive) heart failure; N39.0 Urinary tract infection, site not specified; D72.828 Other elevated white blood cell count; E86.0 Dehydration; I48.2 Chronic atrial fibrillation; E78.5 Hyperlipidemia, unspecified; I11.0 Hypertensive heart disease with heart failure; Z79.899 Other long term (current) drug therapy
CPT/HCPCS: 36415; 70450; 70544; 70547; 70551; 71010; 80048; 80053; 80061; 81001; 82140; 82550; 82962; 83036; 84443; 84484; 85007; 85025; 85027; 85610; 85730; 87040; 87493; 90686; 90732; 93005; 93010; 93306; 93880; 94760; 95819; 96360; G8978-GP; G8979-GP; G8987-GO; G8988-GO; G8996-GN; G8997-GN; G8998-GN; J1940; J1956; J2060; J7030

== ENCOUNTER 2016-06-18 16:13 | Emergency (ER) | payer MEDICARE ==
[2016-06-18] MEDS ORDERED: NACL 0.9% 1000 ML 1,000 ML IV ONE (19:01)
--- NOTE | 2016-06-18 19:04 | Emergency Department Report ---
HPI - General Chief Complaint: Weakness Time Seen by Provider: 06/18/16 18:46 - HPI HPI: This is a 85-year-old female presents to the emergency department by EMS from the [facility] with complaint of dehydration, hypotension, weakness and malnutrition. The patient has a language barrier but her son and [id number] are currently bedside. The patient was admitted to the hospital at the beginning of May for similar symptoms and altered mental status. Prior to that time the patient was ambulatory, AAO 3 with some signs of dementia. After the patient was discharged from the hospital she went to the [facility]. Since that time the patient has been refusing anything for food or drink, refusing medications, appears to be worsening with her mental status and/ or dementia and showing signs of some generalized weakness. She has a history of CVA, CHF, atrial fibrillation, hypertension. She does not have a primary care doctor. ED Past Medical Hx - Past Medical History Hx Hypertension: Yes Hx CVA: Yes Hx Congestive Heart Failure: Yes Hx Kidney Stones: Yes Additional medical history: afib - Surgical History Additional Surgical History: unable to assess - Social History Smoking Status: Never Smoker Substance Use Type: None - Medications Home Medications: Home Medications Medication Instructions Recorded Confirmed Last Taken Type Dabigatran [Pradaxa] 150 mg PO BID 05/31/16 06/18/16 Unknown History Ondansetron [Zofran TAB] 4 mg PO Q8HR PRN 05/31/16 06/18/16 Unknown History Carvedilol [Coreg] 6.25 mg PO BID #60 tablet 06/06/16 06/18/16 Unknown Rx Famotidine [Pepcid] 20 mg PO BID #60 tablet 06/06/16 06/18/16 Unknown Rx Furosemide [Lasix TAB] 40 mg PO QDAY #7 tablet 06/06/16 06/18/16 Unknown Rx Losartan [Cozaar] 50 mg PO QDAY #30 tablet 06/06/16 06/18/16 Unknown Rx Potassium Chloride [Klor-Con] 20 meq PO DAILY #10 packet 06/06/16 06/18/16 Unknown Rx Simvastatin [Zocor TAB] 20 mg PO QHS #30 tablet 06/06/16 06/18/16 Unknown Rx Diphenoxylate/Atropine [Lomotil] 1 tab PO Q4H PRN 06/18/16 06/18/16 Unknown History Docusate Sodium [Colace] 100 mg PO BID PRN 06/18/16 06/18/16 Unknown History Donepezil [Aricept] 5 mg PO QDAY 06/18/16 06/18/16 Unknown History Ferrous Sulfate [Feosol] 325 mg PO QDAY 06/18/16 06/18/16 Unknown History ED Review of Systems ROS: Stated complaint: WEAKNESS Other details as noted in HPI Constitutional: denies: chills, fever Eyes: denies: eye pain, eye discharge, vision change ENT: denies: ear pain, throat pain Respiratory: denies: cough, shortness of breath, wheezing Cardiovascular: denies: chest pain, palpitations Gastrointestinal: denies: abdominal pain, nausea, diarrhea Genitourinary: denies: urgency, dysuria, discharge Musculoskeletal: denies: back pain, joint swelling, arthralgia Skin: denies: rash, lesions Neurological: denies: headache, weakness, paresthesias Physical Exam - Physical Exam Vital Signs: Vital Signs 06/18/16 18:29 Temperature 98.3 F Pulse Rate 74 Blood Pressure 101/64 O2 Sat by Pulse 99 Oximetry Physical Exam: GENERAL: The patient is well-developed well-nourished. HEENT: Normocephalic. Atraumatic. Extraocular motions are intact. Patient has moist mucous membranes. Pupils equal reactive to light bilaterally. NECK: Supple. Trachea is midline. CHEST/LUNGS: Clear to auscultation. There is no respiratory distress noted. HEART/CARDIOVASCULAR: Irregularly irregular with controlled rate. No murmurs. ABDOMEN: Abdomen is soft, nontender. Patient has normal bowel sounds. There is no abdominal distention. SKIN: Skin is warm and dry. NEURO: The patient is awake, alert. The patient is mostly cooperative. The patient has no focal neurologic deficits. The patient has normal speech. MUSCULOSKELETAL: There is no tenderness or deformity. There is no limitation range of motion. There is no evidence of acute injury. ED Course Vital Signs 06/18/16 18:29 Temperature 98.3 F Pulse Rate 74 Blood Pressure 101/64 O2 Sat by Pulse 99 Oximetry ED Medical Decision Making - Lab Data Result diagrams: 06/18/16 19:34 06/18/16 19:34 - Medical Decision Making This is an 85-year-old female who presents to the emergency department from the [facility] fpc/rehabilitation with complaint of possible dehydration and/or malnutrition as the patient has been refusing food, water and refusing to take her medications. I'll patient is been in the emergency department she has been seen moving all of her extremities. She is awake. There is a little much. But her son is there translating and she responds to all of his questions as translated for me. Patient's labs show some mild anemia but there is not a level that wires a transfusion. She has some signs of decreased food intake or malnutrition as she has low albumen and prealbumin levels. There are no significant signs of dehydration with a normal BUN to creatinine ratio and no ketones in the urine. There is a mild urinary tract infection with 35 white blood cells in the urine. At first the patient refused to take the oral potassium chloride for her hypokalemia and spit it out. However when the patient started getting IV potassium chloride and it started feeling like it was burning the patient suddenly had no trouble swallowing the medication. After this she was able to drink juice. Patient's vital signs were stable throughout her ED course including being afebrile. Since patient has displayed the ability to take the antibiotics to treat her urinary tract infection, has replaced her hypokalemia with potassium chloride, and has displayed the ability to rehydrate herself or intake further nutrition, I do not feel that the patient requires inpatient admission at this time. She is already at a fpc/rehabilitation facility capable of providing care and helping with these ADLs. However I spoke with son and if there is any change in her condition and she does not get any further oral rehydration, or with any distress, she is to be brought back to the emergency department immediately. - Differential Diagnosis UTI, dementia, malnutrition, dehydration, viral syndrome Critical Care Time: No Critical care attestation.: If time is entered above; I have spent that time in minutes in the direct care of this critically ill patient, excluding procedure time. ED Disposition Clinical Impression: Malnutrition UTI (urinary tract infection) Qualifiers: Urinary tract infection type: acute cystitis Hematuria presence: without hematuria Qualified Code(s): N30.00 - Acute cystitis without hematuria Disposition: DC/TX ANOTHER TYPE HEALTHCARE Is pt being admited?: No Condition: Stable Instructions: Dehydration (ED), Urinary Tract Infection in Women (ED) Additional Instructions: Please increase oral rehydration. Patient should follow-up with her primary care doctor in the next few days. Return the patient back to the emergency department if she starts to refuse food, water, and medications again. Referrals: PRIMARY CARE, [Primary Care Provider] - 3-5 Days RUSTAM BEY JR, MD [Staff Physician] - 3-5 Days Time of Disposition: 01:03
[2016-06-18 19:43] VITALS: BP 106/58
[2016-06-18 19:55] LABS: Basophils % (Auto) 0.8 % (0.0-1.8); Hematocrit 29.8 % (30.3-42.9); Hemoglobin 9.3 gm/dl (10.1-14.3); Mean Corpuscular HGB Conc 31 % (30-34); Mean Corpuscular Volume 81 fl (79-97); Platelet Count 346 K/mm3 (140-440); Red Blood Count 3.66 M/mm3 (3.65-5.03); White Blood Count 5.2 K/mm3 (4.5-11.0)
[2016-06-18 19:56] LABS: Mean Corpuscular Hemoglobin 25 pg (28-32); Red Cell Distribution Width 21.3 % (13.2-15.2)
[2016-06-18] MEDS ORDERED: NACL 0.9% 500 ML 500 ML IV SCH (20:00)
[2016-06-18 20:15] LABS: Alanine Aminotransferase 9 units/L (7-56); Albumin 3.2 g/dL (3.9-5); Albumin/Globulin Ratio 0.9 %; Alkaline Phosphatase 69 units/L (35-129); Anion Gap 16 mmol/L; BUN/Creatinine Ratio 15.71; Bilirubin,Total 1.5 mg/dL (0.1-1.2); Blood Urea Nitrogen 11 mg/dL (7-17); Calcium 8.6 mg/dL (8.4-10.2); Carbon Dioxide 27 mmol/L (22-30); Chloride 95.7 mmol/L (98-107); Creatine Kinase 33 units/L (30-135); Glucose 106 mg/dL (65-100); Sodium 136 mmol/L (137-145); Total Protein 6.8 g/dL (6.3-8.2)
[2016-06-18] MEDS ORDERED: K-DUR PO ONE ×2 (20:42→23:45)
[2016-06-18] MEDS: KCL 10MEQ/100ML 10 MEQ/100 ML BAG IV SCH (22:49)
[2016-06-18 23:00] LABS: Bacteria,Urine 3+ /HPF (Negative); Bilirubin,Urine NEG (Negative); Blood,Urine NEG (Negative); Ketones,Urine NEG (Negative); Leukocyte Esterase,Urine LG (Negative); Nitrite,Urine POS (Negative); Protein,Urine <15 mg/dL mg/dL (Negative)
[2016-06-18] MEDS ORDERED: ROCEPHIN/NS 1 GM/50 ML 1 GM/50 ML BAG IV ONE (23:12)
[2016-06-19] MEDS ORDERED: K-DUR PO ONE ×2 (00:22→01:46)
[2016-06-19] MEDS: KCL 10MEQ/100ML 10 MEQ/100 ML BAG IV SCH ×2 (03:29→04:27)
== END 2016-06-19 04:38 | disposition other institution (70) ==
LOC: ED 16:13
DX: E46 Unspecified protein-calorie malnutrition (principal); N30.00 Acute cystitis without hematuria; I10 Essential (primary) hypertension; Z86.73 Personal history of transient ischemic attack (TIA), and cerebral infarction without residual deficits
CPT/HCPCS: 36415; 80053; 81001; 82550; 84134; 84443; 84484; 85025; 87076; 87086; 87186; 93005; 93010; 96361; 96365; 99285; J0696; J3480; J7040

== ENCOUNTER 2018-04-08 01:09 | Inpatient (IN) | payer MEDICARE ==
[2018-04-08] MEDS ORDERED: NACL 0.9% 1000 ML IV ONE (02:46)
[2018-04-08] MEDS ORDERED: NACL 0.9% 1000 ML 2,000 ML ONE (02:50)
[2018-04-08] MEDS: TYLENOL FEEDTUBE PRN (03:00)
[2018-04-08] MEDS ORDERED: TYLENOL ONE (03:10)
[2018-04-08 03:11] LABS: Basophils % (Auto) 0.2 % (0.0-1.8); Eosinophils % (Auto) 0.2 % (0.0-4.3); Hematocrit 31.2 % (30.3-42.9); Hemoglobin 9.7 gm/dl (10.1-14.3); Lymphocytes # (Auto) 1.8 K/mm3 (1.2-5.4); Mean Corpuscular HGB Conc 31 % (30-34); Mean Corpuscular Volume 93 fl (79-97); Monocytes % (Auto) 5.9 % (0.0-7.3); Platelet Count 236 K/mm3 (140-440); Red Blood Count 3.37 M/mm3 (3.65-5.03); Red Cell Distribution Width 17.6 % (13.2-15.2)
[2018-04-08] MEDS ORDERED: LEVAQUIN 750MG/150ML 750 MG/150 ML BAG IV ONE (03:11)
--- NOTE | 2018-04-08 03:13 | Emergency Department Report ---
HPI - General Chief Complaint: Fever Time Seen by Provider: 04/08/18 02:46 - HPI HPI: 87-year-old female presents to the emergency department via EMS from her fdc at [facility] with a complaint of low blood pressure and fever. The patient has a past medical history that includes previous CVA with right-sided hemiplegia, aphasia, history of CHF, [id number] diabetes, vascular dementia, anemia, hypertension and history of atrial fibrillation. The patient is a poor historian secondary to her current and chronic medical co nditions. ED Past Medical Hx - Past Medical History Hx Hypertension: Yes Hx CVA: Yes Hx Congestive Heart Failure: Yes Hx Kidney Stones: Yes Additional medical history: afib - Surgical History Additional Surgical History: unable to assess - Social History Smoking Status: Never Smoker Substance Use Type: None - Medications Home Medications: Home Medications Medication Instructions Recorded Confirmed Last Taken Type Ondansetron [Zofran TAB] 4 mg PO Q8HR PRN 05/31/16 07/21/16 Unknown History Famotidine [Pepcid] 20 mg PO BID #60 tablet 06/06/16 07/21/16 Unknown Rx Furosemide [Lasix TAB] 40 mg PO QDAY #7 tablet 06/06/16 07/21/16 Unknown Rx Losartan [Cozaar] 50 mg PO QDAY #30 tablet 06/06/16 07/21/16 Unknown Rx Docusate Sodium [Colace CAP] 100 mg PO BID PRN 06/18/16 07/21/16 Unknown History Donepezil [Aricept] 5 mg PO QDAY 06/18/16 07/21/16 Unknown History Ferrous Sulfate [Feosol 325 MG tab] 325 mg PO QDAY 06/18/16 07/21/16 Unknown History Apixaban [Eliquis] 2.5 mg PO Q12HR #60 tablet 08/12/16 Unknown Rx Levothyroxine [Synthroid] 75 mcg PO DAILY@0600 #30 tablet 08/12/16 Unknown Rx Metoprolol [Lopressor TAB] 25 mg PO TID #90 tablet 08/12/16 Unknown Rx Simvastatin [Zocor TAB] 40 mg PO QHS #30 tablet 08/12/16 07/21/16 Unknown Rx ED Review of Systems ROS: Stated complaint: HYPOTENTION Other details as noted in HPI Comment: Unobtainable due to pts medical conditions Physical Exam - Physical Exam Vital Signs: Vital Signs 04/08/18 02:34 Temperature 101.5 F H Pulse Rate 105 H Blood Pressure 71/43 O2 Sat by Pulse 100 Oximetry Physical Exam: GENERAL: Patient is ill-appearing. HEENT: Normocephalic. Atraumatic. Patient has moist mucous membranes. EYES: Pupils are equal and reactive to light bilaterally. NECK: Supple. Trachea is midline. CHEST/LUNGS: Clear to auscultation. There is no respiratory distress noted. HEART/CARDIOVASCULAR: Irregular rhythm. There is mild tachycardia. There is no obvious murmur. ABDOMEN: Abdomen is soft, nontender. Patient has normal bowel sounds. There is no abdominal distention. SKIN: Skin is hot but dry. NEURO: Patient is awake but otherwise nonverbal. She will withdraw to painful stimuli but does not follow commands. MUSCULOSKELETAL: There is no obvious deformity. There is no evidence of acute injury. ED Course Vital Signs 04/08/18 02:34 Temperature 101.5 F H Pulse Rate 105 H Blood Pressure 71/43 O2 Sat by Pulse 100 Oximetry ED Medical Decision Making - Lab Data Result diagrams: 04/08/18 02:50 04/08/18 02:50 - EKG Data -: EKG Interpreted by Me - EKG Data When compared to previous EKG there are: no significant change Interpretation: unchanged when compared t (08/15/16), other (atrial fibrillation with a rate of 92 bpm, normal axis, there are some mild ST depressions to the anterior to lateral leads but no ST elevation or reciprocal changes.) - Radiology Data Radiology results: image reviewed interpreted by me: Chest x-ray does not show any pneumothorax, pleural effusion, pneumonia or obvious focal consolidation. - Medical Decision Making Patient presents from her fdc with some hypotension and a fever and was made a code sepsis. Patient was started on Levaquin after blood and urine cultures were sent. Patient has a leukocytosis of 16,000, some mild hyponatremia, lactic acidosis, renal insufficiency, elevated troponin level and a urinary tract infection. Chest x-ray did not show any focal consolidation, pneumonia, pneumothorax, pleural effusion or any other acute process. The patient had some improvement at first of her hypotension with IV fluid resuscitation but then once again started becoming hypotensive. At this point a central line was placed per the procedure section and the patient was started on pressors. Patient will be admitted to the ICU and has been accepted for admission by the hospitalist, Dr. Jernigan. - Differential Diagnosis SIRS, Sepsis, UTI, Pneumonia Critical Care Time: Yes Critical care time in (mins) excluding proc time.: 35 Critical care attestation.: If time is entered above; I have spent that time in minutes in the direct care of this critically ill patient, excluding procedure time. Critical care time was spent on this patient during her initial evaluation, multiple re- evaluations, ordering an interpretation of labs and imaging, ordering and administration of medication. This does not include the time spent doing the central line procedure. Critical Care Time: 35 minutes ED Disposition Clinical Impression: Elevated lactic acid level, Chronic atrial fibrillation, Renal insufficiency, Hypernatremia Sepsis Qualifiers: Sepsis type: sepsis due to unspecified organism Qualified Code(s): A41.9 - Sepsis, unspecified organism UTI (urinary tract infection) Qualifiers: Urinary tract infection type: acute cystitis Hematuria presence: without hematuria Qualified Code(s): N30.00 - Acute cystitis without hematuria Disposition: OP ADMIT IP TO THIS HOSP Is pt being admited?: Yes Condition: Serious Referrals: PRIMARY CARE, [Primary Care Provider] - 3-5 Days Time of Disposition: 05:36
[2018-04-08 03:20] LABS: Albumin 2.7 g/dL (3.9-5); Calcium 7.8 mg/dL (8.4-10.2)
[2018-04-08 03:24] LABS: Amorphous Crystals,Urine 2+; Bacteria,Urine 4+ /HPF (Negative); Bilirubin,Urine NEG (Negative); Blood,Urine SM (Negative); Calcium Oxalate Crystals,Urine 2+; Color,Urine Yellow (Yellow)
[2018-04-08 03:28] LABS: WBC,Urine > 182.0 /HPF (0.0-6.0)
[2018-04-08 03:51] LABS: Chol/HDL Ratio 3.22 %
--- NOTE | 2018-04-08 03:51 | XRay Report ---
FINAL REPORT PROCEDURE: XR CHEST 1V AP TECHNIQUE: Chest radiograph anteroposterior view. CPT 35414 HISTORY: fever COMPARISON: No prior studies are available for comparison. FINDINGS: Heart: The heart is borderline enlarged. Mediastinum/Vessels: Normal. Lungs/Pleural space: Lungs are expanded. There are mild chronic fibrotic changes. There are no active infiltrates. There is no effusion or pneumothorax.. Bony thorax: No acute osseous abnormality. Life support devices: None. IMPRESSION: The heart is borderline enlarged. Lungs are expanded. There are mild chronic fibrotic changes. There are no active infiltrates. There i s no effusion or pneumothorax.. .
[2018-04-08] MEDS ORDERED: NACL 0.9% 1000 ML 1,000 ML IV ONE (03:59)
[2018-04-08] MEDS: LEVOPHED DRIP 4 MG/NS 250 ML 4 MG/250 ML BAG IV ONE ×3 (04:28→15:52)
[2018-04-08] MEDS ORDERED: ZOFRAN IV PRN (04:59)
[2018-04-08] MEDS ORDERED: D5NS 0.2% 1,000 ML IV SCH (05:00)
[2018-04-08] MEDS ORDERED: COLACE PO PRN (05:04)
[2018-04-08] MEDS ORDERED: D50W (25GM) Syringe IV PRN (05:14)
[2018-04-08] MEDS ORDERED: ASPIRIN PO ONE (05:32)
[2018-04-08] MEDS ORDERED: NACL 0.45% 1000 ML IV SCH (06:00)
[2018-04-08] MEDS ORDERED: NACL 0.45% 500 ML IV SCH (06:00)
[2018-04-08] MEDS ORDERED: ZOSYN/NS 3.375GM/50ML 3.375 GM/50 ML BAG IV SCH (06:00)
[2018-04-08] MEDS: HumuLIN R SUB-Q SCH ×5 (06:01→23:09)
[2018-04-08] MEDS: SYNTHROID PO SCH (06:24)
[2018-04-08] MEDS: ZOSYN/NS 2.25 GM/50ML 2.25 GM/50 ML BAG IV SCH ×3 (06:24→17:56)
[2018-04-08 06:47] LABS: Creatine Kinase MB 4.7 ng/mL (0.0-4.0)
--- NOTE | 2018-04-08 07:04 | History and Physical Report ---
CHIEF COMPLAINT: Fever. HISTORY OF PRESENT ILLNESS: The patient is an 87-year-old female brought from the long-term [facility] with complaints of fever and low blood pressure. The patient was evaluated down in the Emergency Room and found to have sepsis, elevated sodium level, and urinary tract infection as well as elevated troponin level. PAST MEDICAL HISTORY: Pertinent for cerebrovascular accident with right-sided hemiplegia and aphasia. Also, the patient has past history of congestive heart failure, diabetes mellitus, vascular dementia, anemia, hypertension and atrial fibrillation. The patient is noncommunicative and there is no history of chest pain or shortness of breath. PAST SURGICAL HISTORY: Noncontributory. FAMILY HISTORY: Noncontributory. SOCIAL HISTORY: The patient stays at the long-term, does not smoke, does not drink alcohol and does not use illicit drugs. MEDICATIONS: The patient is on Zofran 4 mg by mouth every 8 hours as needed for nausea and vomiting, Pepcid 20 mg by mouth twice daily, Lasix 40 mg by mouth daily, Cozaar 50 mg by mouth daily, docusate sodium 100 mg by mouth twice daily, Aricept 5 mg by mouth daily, ferrous sulfate 325 mg by mouth daily, Eliquis 2.5 mg by mouth every 12 hours, Synthroid 75 mcg by mouth daily, Lopressor 25 mg by mouth 3 times daily, and Zocor 40 mg by mouth at bedtime. ALLERGIES: There are no known drug allergies. REVIEW OF SYSTEMS: CONSTITUTIONAL: There is fever, no chills, no diaphoresis. HEENT: There is no headache or sore throat. CARDIOVASCULAR SYSTEM: There is no chest pain or orthopnea but there is low blood pressure. RESPIRATORY SYSTEM: There is no shortness of breath or cough. GASTROINTESTINAL SYSTEM: There is no nausea, no vomiting. No abdominal pain, diarrhea or constipation. NEUROLOGICAL SYSTEM: There is no numbness, no dizziness. No new change in mental status. MUSCULOSKELETAL SYSTEM: There is no joint pain or swelling. DERMATOLOGICAL SYSTEM: There is no skin rash or itching. GENITOURINARY SYSTEM: There is no dysuria, hematuria or flank pain. Rest of system review is normal. PHYSICAL EXAMINATION: GENERAL: At the time of exam, the patient was found to be alert, disoriented x 3 and noncommunicative and not in acute distress. VITAL SIGNS: At the initial time of presentation show temperature of 101.5 degrees Fahrenheit, pulse of 105, blood pressure 71/43, and O2 sat 100% on room air. HEENT: Shows pupils to be equal, round, and reactive to light and accommodating. Extraocular muscles are intact. Oral mucosa looks dry. NECK: Supple with no JVD or carotid bruit. CARDIOVASCULAR SYSTEM: Showed first and second heart sounds with irregularly irregular rhythm. RESPIRATORY SYSTEM: Showed good air entry on both sides of the lungs with no abnormal breath sounds. GASTROINTESTINAL SYSTEM: Showed abdomen to be full, soft, nontender with no organomegaly or rigidity. NEUROLOGICAL SYSTEM: Showed the patient to be lethargic, but arousable, noncommunicative with no focal deficit. MUSCULOSKELETAL SYSTEM: Showed no joint swelling or tenderness. DERMATOLOGICAL SYSTEM: Showed no skin rash. GENITOURINARY SYSTEM: Showing no costovertebral angle tenderness. IMAGING DATA: The patient had a chest x-ray done that shows borderline enlargement of the heart and finding of mild chronic fibrotic changes with no active infiltrate. There is no effusions or pneumothorax. LABORATORY RESULTS: The patient has CBC done with elevated white count of 16.9 and low hemoglobin of 9.7 with hematocrit of 31.2. Rest of CBC differential showed elevated segmented neutrophil of 82.7%. The patient's chemistry show a high sodium level of 162 with high chloride level of 108.9 and elevated BUN of 102 with elevated creatinine of 1.7. The patient's blood glucose level is high with a value of 291 and lactic acid level is high with a value of 2.7. Liver transaminases show high AST of 74 and high ALT of 96. The patient's troponin level was high with a value of 0.068 and albumin level is low with a value of 2.7. The patient's urinalysis showed high urine wbc's of greater than 182 with moderate urine leukocyte esterase and trace urine ketone with negative urine nitrite and high urine rbc's of 23 with 4+ bacteria. DIAGNOSES: 1. Sepsis. 2. Hypernatremia. 3. Urinary tract infection. 4. Elevated troponin level. PLAN OF ACTION: 1. The patient will be admitted to ICU. 2. The patient will continue IV Levophed to maintain mean arterial pressure of 65. 3. The patient will be on IV Zosyn 3.375 grams q.8 hours for treatment of sepsis and IV Levaquin 750 mg daily. 4. The patient will be placed on half normal saline at 75 mL an hour. 5. The patient will have cardiac enzymes involving troponin, total CK, and CK-MB checked q.6 hours x 2 more levels. 6. The patient will have a critical care consult with Dr. Eller because of ICU admission and need for IV Levophed for maintenance of blood pressure. 7. The patient will be on p.r.n. medications like Tylenol 650 mg by mouth every 4 hours as needed for fever and headache and IV Zofran 4 mg every 8 hours for nausea and vomiting. 8. The patient will be on her home medications as shown in the medication reconciliation section. 9. The patient will have basic metabolic panel checked this morning and we will have Nephrology consult with Dr. Lazar because of renal insufficiency. JOB# [id number] OCN/NTS MTDD
[2018-04-08] MEDS ORDERED: LOPRESSOR PO SCH (08:00)
[2018-04-08] MEDS ORDERED: COZAAR PO SCH (10:00)
[2018-04-08] MEDS ORDERED: LEVAQUIN 500MG/100ML 500 MG/100 ML BAG IV SCH (10:00)
[2018-04-08] MEDS ORDERED: HEPARIN SUB-Q SCH (10:00)
[2018-04-08] MEDS ORDERED: LEVAQUIN 750MG/150ML 750 MG/150 ML BAG IV SCH (10:00)
[2018-04-08] MEDS ORDERED: LEVOPHED DRIP 4 MG/NS 250 ML 4 MG/250 ML BAG IV ONE ×2 (10:14→21:16)
[2018-04-08] MEDS ORDERED: PEPCID ONE (10:47)
[2018-04-08] MEDS ORDERED: LEVAQUIN 500MG/100ML 0 MG/0 ML BAG IV ONE (10:47)
[2018-04-08] MEDS ORDERED: NACL 0.9% 0 ML ONE (11:24)
[2018-04-08] MEDS ORDERED: NACL 0.45% 1000 ML 1,000 ML IV ONE ×2 (11:26→23:40)
--- NOTE | 2018-04-08 11:41 | Consultation ---
History of Present Illness Consult date: 04/08/18 Requesting physician: VERO FORRESTER Reason for consult: other (Severe sepsis, acute encephaloapthy) History of present illness: 87-year-old female presents to the emergency department via EMS from her intermediate at [facility] with a complaint of low blood pressure and fever. The patient has a past medical history that includes previous CVA with right-sided hemiplegia, aphasia, history of CHF, [id number] diabetes, vascular dementia, anemia, hypertension and history of atrial fibrillation. Pat ient is unable to give any history. Most of the history is obtained from the review of the medical records. On arrival to the ED she was hypotensive, requiring volume resuscitation(2.5liters), UA was consistent with probable UTI( Zosyn was initiated), in spite of the volume resuscitation she remained hypotensive requiring vasopressor support. Norepinephrine was administered. A right lower extremity IO access was established and then a right groin femoral CVC was placed. Patient was seen and examined in the ER with the LOG CLERK Vitals, labs, medications, chart and imaging were reviewed. She is currently on D51/2N saline and norepinephrine at 12 mcg. - Past Medical History Hx Hypertension: Yes Hx CVA: Yes Hx Congestive Heart Failure: Yes Hx Kidney Stones: Yes Additional medical history: afib - Surgical History Additional Surgical History: unable to assess - Social History Smoking Status: Never Smoker, [facility] resident Substance Use Type: None Medications and Allergies Allergies Allergy/AdvReac Type Severity Reaction Status Date / Time No Known Allergies Allergy Verified 04/08/18 02:43 Home Medications Medication Instructions Recorded Confirmed Last Taken Type Docusate Sodium [Colace CAP] 100 mg PO BID PRN 06/18/16 04/08/18 04/07/18 History Apixaban [Eliquis] 2.5 mg PO Q12HR #60 tablet 08/12/16 04/08/18 04/07/18 Rx Levothyroxine [Synthroid] 75 mcg PO DAILY@0600 #30 tablet 08/12/16 04/08/18 04/07/18 Rx Simvastatin [Zocor TAB] 40 mg PO QHS #30 tablet 08/12/16 04/08/18 04/07/18 Rx Acetaminophen [Tylenol] 325 mg PO PRN 04/08/18 04/08/18 04/07/18 History Digoxin [Lanoxin] 0.125 mg PO DAILY 04/08/18 04/08/18 04/07/18 History Insulin Detemir [Levemir Flextouch] 100 unit SQ DAILY 04/08/18 04/08/18 04/07/18 History Lisinopril [Prinivil] 5 mg PO DAILY 04/08/18 04/08/18 04/07/18 History Metoclopramide HCl 5 mg PO Q6HR 04/08/18 04/08/18 04/07/18 History Metoprolol Tartrate 25 mg PO TID 04/08/18 04/08/18 04/07/18 History Potassium Chloride [Klor-Con] 20 meq PO DAILY 04/08/18 04/08/18 04/07/18 History Simvastatin 40 mg PO DAILY 04/08/18 04/08/18 04/07/18 History Torsemide [Demadex] 20 mg PO DAILY 04/08/18 04/08/18 04/07/18 History Active Meds: Active Medications Acetaminophen (Tylenol) 650 mg FEEDTUBE Q6H PRN PRN Reason: Pain, Mild (1-3) Last Admin: 04/08/18 03:00 Dose: 650 mg Documented by: Apixaban (Eliquis) 2.5 mg PO Q12HR [facility]; Protocol Dextrose (D50w (25gm) Syringe) 50 ml IV PRN PRN PRN Reason: Hypoglycemia Docusate Sodium (Colace) 100 mg PO BID PRN PRN Reason: Constipation Donepezil HCl (Aricept) 5 mg PO QDAY [facility]UN[facility] Famotidine (Pepcid) 20 mg PO QAM [facility] Ferrous Sulfate (Feosol) 325 mg PO QDAY [facility]UN[facility] Norepinephrine (Levophed Drip 4 Mg/Ns 250 Ml) 4 mg in 250 mls @ 7.5 mls/hr IV TITR ONE; Protocol Stop: 04/09/18 13:20 Last Admin: 04/08/18 10:19 Dose: 12 mcg/min, 45 mls/hr Documented by: Sodium Chloride (Nacl 0.45%) 500 mls @ 75 mls/hr IV DIRECT [facility] Stop: 04/08/18 12:39 Last Admin: 04/08/18 11:28 Dose: 75 mls/hr Documented by: Piperacillin Sod/Tazobactam Sod (Zosyn/Ns 2.25 Gm/50ml) 2.25 gm in 50 mls @ 100 mls/hr IV Q6HR [facility] Last Admin: 04/08/18 06:24 Dose: 100 mls/hr Documented by: Levofloxacin/Dextrose (Levaquin 500mg/100ml) 500 mg in 100 mls @ 100 mls/hr IV Q48HR [facility] Insulin Human Regular (Humulin R) 0 units SUB-Q Q4H [facility]; Protocol Last Admin: 04/08/18 06:01 Dose: 4 units Documented by: Levothyroxine Sodium (Synthroid) 75 mcg PO DAILY@0600 [facility] Last Admin: 04/08/18 06:24 Dose: 75 mcg Documented by: Ondansetron HCl (Zofran) 4 mg IV Q8H PRN PRN Reason: Nausea And Vomiting Pravastatin Sodium (Pravachol) 80 mg PO QHS [facility] Review of Systems ROS unobtainable: due to mental status Physical Examination Vital signs: Vital Signs Pulse Resp 95 H 32 H 04/08/18 02:33 04/08/18 02:33 General appearance: lethargic, appears uncomfortable, other Eyes: non-icteric ENT: oropharynx dry, other (SHARON) Neck: supple, no lymphadenopathy, no JVD Effort: mildly labored Ascultation: Bilateral: clear, diminished breath sounds Cardiovascular: other (Tachycardia, S1,S2, no murmurs, gallops or rubs) Gastrointestinal: normoactive bowel sounds, soft, non-tender, non-distended, other (no guarding, PEG in place, Mahajan cahter with tea colored urine in place) Integumentary: other (loss of skin tugor) Extremities: no edema, pulses normal, cool pupils equal and round, unable to assess other (unable to assess) Results - Laboratory Findings CBC and BMP: 04/09/18 00:27 04/09/18 00:27 Abnormal lab findings: Abnormal Labs 04/08/18 04/08/18 04/08/18 02:50 02:50 02:50 WBC 16.5 H RBC 3.37 L Hgb 9.7 L RDW 17.6 H Lymph % (Auto) 11.0 L [place] # 1.0 H Seg Neutrophils % 82.7 H Seg Neutrophils # 13.7 H Sodium 152 H Chloride 108.9 H BUN 102 H Creatinine 1.7 H Glucose 291 H POC Glucose Lactic Acid 2.70 H* Calcium 7.8 L AST 74 H ALT 96 H Total Creatine Kinase CK-MB (CK-2) Troponin T 0.068 H Total Protein 6.2 L Albumin 2.7 L Triglycerides 247 H HDL Cholesterol 36 L Urine WBC (Auto) 04/08/18 04/08/18 04/08/18 02:50 02:57 04:30 WBC RBC Hgb RDW Lymph % (Auto) [place] # Seg Neutrophils % Seg Neutrophils # Sodium Chloride BUN Creatinine Glucose POC Glucose 289 H Lactic Acid 3.50 H* Calcium AST ALT Total Creatine Kinase CK-MB (CK-2) Troponin T Total Protein Albumin Triglycerides HDL Cholesterol Urine WBC (Auto) > 182.0 H 04/08/18 04/08/18 04/08/18 05:59 05:59 06:04 WBC RBC Hgb RDW Lymph % (Auto) [place] # Seg Neutrophils % Seg Neutrophils # Sodium Chloride BUN Creatinine Glucose POC Glucose 323 H Lactic Acid 2.70 H* Calcium AST ALT Total Creatine Kinase 1203 H CK-MB (CK-2) 4.7 H Troponin T 0.042 H D Total Protein Albumin Triglycerides HDL Cholesterol Urine WBC (Auto) 04/08/18 07:06 WBC RBC Hgb RDW Lymph % (Auto) [place] # Seg Neutrophils % Seg Neutrophils # Sodium Chloride BUN Creatinine Glucose POC Glucose Lactic Acid 2.40 H* Calcium AST ALT Total Creatine Kinase CK-MB (CK-2) Troponin T Total Protein Albumin Triglycerides HDL Cholesterol Urine WBC (Auto) - Diagnostic Findings Chest x-ray: image reviewed (No acute pulmonary infiltrates) Assessment and Plan -Severe sepsis with septic shock -UTI -Acute renal failure, vasomotor nephropathy, ischemic ATN -Lactic acidosis -Hyperglycemia -Hypernatremia -Acute on chronic encephalopathy( toxic, metabolic) -h/o CVA -Oropharyngeal dysphagia with PEG -Anemia -Admit ICU -Wean vasopressor support for MAP>65 -Discontinue IO -Volume resuscitation with 1L LR -Continue broad spectrum antibiotics,, follow cultures -De-escalate antibiotic therapy based on PETR and cultures reports -Mahajan catheter for accurate intake and output monitoring in this critically ill patient on vasopressor support with newly diagnosed ITZEL in the setting of severe sepsis and septic shock -Re-assess need for mahajan catheter in the next 24 hours -Will discontinue femoral CVC in the next 24 hours and assess need for ongoing CVC access -Free water flushes via PEG tube for treatment of severe hypernatremia -PT/OT to evaluate -Nutritional consult for tube feeding -Aspiration precautions -Adjust all medications for CrCl/GFR. Avoid nephrotoxic agents -Accuchecks with glycemic control. Target glucose 140-180 mg/dL -VTE prophylaxis -Mobility program for pressure ulcer prevention -Aspiration precautions FULL CODE CONDITION: CRITICAL PROGNOSIS: GUARDED The high probability of a clinically significant, sudden or life-threatening deterioration of the [respiratory, cardiovascular, renal] system(s) required my full and direct attention, intervention and personal management. The aggregate critical care time was [75] minutes without overlap. Time includes spent on; [x] Data Review and interpretation [x] Patient assessment and monitoring of vital signs [x] Documentation [x] Medication orders and management
--- NOTE | 2018-04-08 11:51 | Consultation ---
History of Present Illness - Reason for Consult Consult date: 04/08/18 acute renal failure - History of Present Illness patient is a 87 year old male was sent to the ED for worsening mental status, she was found to be in septic shock and was given 2.5 L NS bolus and started on levophed, UA is consistent with UTI and she was started on IV zosyn, her kidney function was noted to be abnormal and renal consult was requested Past History Past Medical History: heart failure Medications and Allergies Allergies Allergy/AdvReac Type Severity Reaction Status Date / Time No Known Allergies Allergy Verified 04/08/18 02:43 Home Medications Medication Instructions Recorded Confirmed Last Taken Type Docusate Sodium [Colace CAP] 100 mg PO BID PRN 06/18/16 04/08/18 04/07/18 History Apixaban [Eliquis] 2.5 mg PO Q12HR #60 tablet 08/12/16 04/08/18 04/07/18 Rx Levothyroxine [Synthroid] 75 mcg PO DAILY@0600 #30 tablet 08/12/16 04/08/18 04/07/18 Rx Simvastatin [Zocor TAB] 40 mg PO QHS #30 tablet 08/12/16 04/08/18 04/07/18 Rx Acetaminophen [Tylenol] 325 mg PO PRN 04/08/18 04/08/18 04/07/18 History Digoxin [Lanoxin] 0.125 mg PO DAILY 04/08/18 04/08/18 04/07/18 History Insulin Detemir [Levemir Flextouch] 100 unit SQ DAILY 04/08/18 04/08/18 04/07/18 History Lisinopril [Prinivil] 5 mg PO DAILY 04/08/18 04/08/18 04/07/18 History Metoclopramide HCl 5 mg PO Q6HR 04/08/18 04/08/18 04/07/18 History Metoprolol Tartrate 25 mg PO TID 04/08/18 04/08/18 04/07/18 History Potassium Chloride [Klor-Con] 20 meq PO DAILY 04/08/18 04/08/18 04/07/18 History Simvastatin 40 mg PO DAILY 04/08/18 04/08/18 04/07/18 History Torsemide [Demadex] 20 mg PO DAILY 04/08/18 04/08/1819 History Active Meds: Active Medications Acetaminophen (Tylenol) 650 mg FEEDTUBE Q6H PRN PRN Reason: Pain, Mild (1-3) Last Admin: 04/08/18 03:00 Dose: 650 mg Documented by: Apixaban (Eliquis) 2.5 mg PO Q12HR [facility]; Protocol Dextrose (D50w (25gm) Syringe) 50 ml IV PRN PRN PRN Reason: Hypoglycemia Docusate Sodium (Colace) 100 mg PO BID PRN PRN Reason: Constipation Donepezil HCl (Aricept) 5 mg PO QDAY JUNIOR Famotidine (Pepcid) 20 mg PO QAM JUNIOR Ferrous Sulfate (Feosol) 325 mg PO QDAY JUNIOR Norepinephrine (Levophed Drip 4 Mg/Ns 250 Ml) 4 mg in 250 mls @ 7.5 mls/hr IV TITR ONE; Protocol Stop: 04/09/18 13:20 Last Admin: 04/08/18 10:19 Dose: 12 mcg/min, 45 mls/hr Documented by: Sodium Chloride (Nacl 0.45%) 500 mls @ 75 mls/hr IV DIRECT [facility] Stop: 04/08/18 12:39 Last Admin: 04/08/18 11:28 Dose: 75 mls/hr Documented by: Piperacillin Sod/Tazobactam Sod (Zosyn/Ns 2.25 Gm/50ml) 2.25 gm in 50 mls @ 100 mls/hr IV Q6HR [facility] Last Admin: 04/08/18 06:24 Dose: 100 mls/hr Documented by: Levofloxacin/Dextrose (Levaquin 500mg/100ml) 500 mg in 100 mls @ 100 mls/hr IV Q48HR [facility] Insulin Human Regular (Humulin R) 0 units SUB-Q Q4H [facility]; Protocol Last Admin: 04/08/18 06:01 Dose: 4 units Documented by: Levothyroxine Sodium (Synthroid) 75 mcg PO DAILY@0600 [facility] Last Admin: 04/08/18 06:24 Dose: 75 mcg Documented by: Ondansetron HCl (Zofran) 4 mg IV Q8H PRN PRN Reason: Nausea And Vomiting Pravastatin Sodium (Pravachol) 80 mg PO QHS [facility] Review of Systems ROS unobtainable: due to mental status Exam - Vital Signs Vital signs: Vital Signs Pulse Resp 95 H 32 H 04/08/18 02:33 04/08/18 02:33 - General Appearance General appearance: well-developed, well-nourished EENT: ATNC, PERRL, mucous membranes dry Neck: Present: neck supple Respiratory: Clear to Ascultation Heart: tachycardia, S1S2 Gastrointestinal: Present: normoactive bowel sounds. Absent: tenderness, distended Integumentary: no rash, warm and dry Neurologic: other (does not follow commands) Musculoskeletal: Present: other (no edema in BLE) Psychiatric: other (does not answer questions) Results - Lab Results 04/08/18 02:50 04/08/18 02:50 Most recent lab results Calcium 7.8 mg/dL (8.4-10.2) L 04/08/18 02:50 Assessment and Plan septic shock secondary to urosepsis acute renal failure secondary to ischemic ATN hypernatremia secondary to low oral intake Anemia in chronic disease - received 2.5 L NS bolues, to be started on 1/2 NS 75 cc/h, agree with 1/2 NS for ITZEL and hypernatremia - urine lytes and protein ordered, no indication for renal US for now - abx, pressor and blood culture per primary team - renally dose meds - strict I&O - daily weight Thank you for allowing to participate in Ms Cole's care Mike Herrera MD [phone]
[2018-04-08] MEDS ORDERED: HumuLIN R ONE ×3 (12:11→23:10)
[2018-04-08] MEDS: PEPCID PO SCH (12:16)
[2018-04-08] MEDS: FEOSOL PO SCH (12:18)
[2018-04-08] MEDS: ELIQUIS PO SCH ×2 (12:20→23:10)
[2018-04-08] MEDS: ARICEPT PO SCH (12:22)
[2018-04-08] MEDS ORDERED: LACTATED RINGERS 1,000 ML IV SCH (14:00)
[2018-04-08] MEDS ORDERED: LACTATED RINGERS 1,000 ML ONE (14:13)
[2018-04-08 14:24] LABS: Creatine Kinase MB 5.1 ng/mL (0.0-4.0)
[2018-04-08 16:11] LABS: Protein/Creatinine Ratio,Urine 2.38
[2018-04-08] MEDS ORDERED: NACL 0.45% 1000 ML 1,000 ML IV SCH (23:00)
[2018-04-08] MEDS: PRAVACHOL PO SCH (23:36)
[2018-04-09 00:40] LABS: Hematocrit 26.4 % (30.3-42.9); Hemoglobin 8.1 gm/dl (10.1-14.3); Mean Corpuscular HGB Conc 31 % (30-34); Mean Corpuscular Volume 95 fl (79-97); Platelet Count 184 K/mm3 (140-440); Red Blood Count 2.78 M/mm3 (3.65-5.03); Red Cell Distribution Width 16.7 % (13.2-15.2)
[2018-04-09] MEDS: ZOSYN/NS 2.25 GM/50ML 2.25 GM/50 ML BAG IV SCH ×5 (00:40→23:02)
[2018-04-09 00:48] LABS: BUN/Creatinine Ratio 63; Blood Urea Nitrogen 38 mg/dL (7-17); Calcium 6.6 mg/dL (8.4-10.2); Hemolysis Index 19
[2018-04-09] MEDS ORDERED: CARDIZEM IV ONE (01:35)
[2018-04-09] MEDS ORDERED: CARDIZEM ONE (01:37)
[2018-04-09] MEDS: HumuLIN R SUB-Q SCH ×4 (02:30→17:59)
[2018-04-09] MEDS: SYNTHROID PO SCH (06:00)
[2018-04-09 06:28] LABS: Band Neutrophils # (Manual) 0.9 K/mm3; Basophils % (Manual) 0 % (0.0-1.8); Eosinophils % (Manual) 0 % (0.0-4.3); Monocytes % (Manual) 0 % (0.0-7.3); Total Cells Counted 100
[2018-04-09 06:29] LABS: Anisocytosis 1+; Hypochromasia 1+; Platelet Estimate Consistent w Auto
[2018-04-09 06:56] LABS: Basophils % (Auto) 0.1 % (0.0-1.8); Eosinophils % (Auto) 0.3 % (0.0-4.3); Hematocrit 27.1 % (30.3-42.9); Hemoglobin 8.2 gm/dl (10.1-14.3); Lymphocytes # (Auto) 1.1 K/mm3 (1.2-5.4); Lymphocytes % (Auto) 8.5 % (13.4-35.0); Mean Corpuscular HGB Conc 30 % (30-34); Mean Corpuscular Volume 96 fl (79-97); Monocytes # (Auto) 0.5 K/mm3 (0.0-0.8); Monocytes % (Auto) 3.9 % (0.0-7.3); Platelet Count 190 K/mm3 (140-440); Red Blood Count 2.84 M/mm3 (3.65-5.03); Red Cell Distribution Width 17.2 % (13.2-15.2)
[2018-04-09 07:10] LABS: BUN/Creatinine Ratio 47; Blood Urea Nitrogen 33 mg/dL (7-17); Calcium 6.8 mg/dL (8.4-10.2); Hemolysis Index 8
--- NOTE | 2018-04-09 09:38 | Progress Note ---
Assessment and Plan septic shock secondary to urosepsis acute renal failure secondary to ischemic ATN hypernatremia secondary to low oral intake Anemia in chronic disease - improved Cr but noted to have elevated proteinuria, will check SPEP - will start D5W for hypernatremia 50 cc/h - abx, pressor and blood culture per primary team - renally dose meds - strict I&O - daily weight Thank you for allowing to participate in Ms Cole's care Mike Herrera MD [phone] Subjective Date of service: 04/09/18 Principal diagnosis: acute renal failure Interval history: feels better this AM, daughter at bedside, all questions answered Objective - Vital Signs Vital signs: Vital Signs - 12hr 04/08/18 04/08/18 04/08/18 21:40 21:45 21:50 Temperature Pulse Rate 69 76 78 Pulse Rate [ From Monitor] Pulse Rate [ Right Radial] Respiratory 18 22 15 Rate Blood Pressure 112/67 116/64 123/71 O2 Sat by Pulse 100 100 Oximetry 04/08/18 04/08/18 04/08/18 21:55 22:00 22:05 Temperature Pulse Rate 74 75 64 Pulse Rate [ From Monitor] Pulse Rate [ Right Radial] Respiratory 16 16 16 Rate Blood Pressure 124/69 133/70 128/67 O2 Sat by Pulse 100 100 99 Oximetry 04/08/18 04/08/18 04/08/18 22:10 22:15 22:20 Temperature Pulse Rate 75 73 72 Pulse Rate [ From Monitor] Pulse Rate [ Right Radial] Respiratory 14 16 16 Rate Blood Pressure 124/65 115/64 127/60 O2 Sat by Pulse 100 91 100 Oximetry 04/08/18 04/08/18 04/08/18 22:25 22:30 22:35 Temperature Pulse Rate 74 76 74 Pulse Rate [ From Monitor] Pulse Rate [ Right Radial] Respiratory 16 18 18 Rate Blood Pressure 124/67 128/68 134/64 O2 Sat by Pulse 100 100 100 Oximetry 04/08/18 04/08/18 04/08/18 22:40 22:45 22:50 Temperature Pulse Rate 76 77 79 Pulse Rate [ From Monitor] Pulse Rate [ Right Radial] Respiratory 16 16 16 Rate Blood Pressure 120/65 126/66 117/63 O2 Sat by Pulse 100 100 100 Oximetry 04/08/18 04/08/18 04/08/18 22:55 23:00 23:05 Temperature Pulse Rate 81 78 77 Pulse Rate [ From Monitor] Pulse Rate [ Right Radial] Respiratory 18 18 17 Rate Blood Pressure 116/68 123/66 125/68 O2 Sat by Pulse 100 100 Oximetry 04/08/18 04/08/18 04/08/18 23:10 23:15 23:20 Temperature Pulse Rate 74 82 87 Pulse Rate [ From Monitor] Pulse Rate [ Right Radial] Respiratory 17 19 22 Rate Blood Pressure 122/68 121/72 117/58 O2 Sat by Pulse 100 100 100 Oximetry 04/08/18 04/08/18 04/08/18 23:24 23:25 23:30 Temperature Pulse Rate 80 77 72 Pulse Rate [ From Monitor] Pulse Rate [ Right Radial] Respiratory 19 17 18 Rate Blood Pressure 127/60 114/57 109/59 O2 Sat by Pulse 100 100 100 Oximetry 04/08/18 04/08/18 04/08/18 23:31 23:35 23:40 Temperature Pulse Rate 79 75 75 Pulse Rate [ From Monitor] Pulse Rate [ Right Radial] Respiratory 18 17 17 Rate Blood Pressure 109/59 125/63 121/59 O2 Sat by Pulse 100 100 100 Oximetry 04/08/18 04/08/18 04/08/18 23:45 23:50 23:52 Temperature Pulse Rate 79 81 80 Pulse Rate [ From Monitor] Pulse Rate [ Right Radial] Respiratory 16 18 19 Rate Blood Pressure 122/57 122/57 122/57 O2 Sat by Pulse 100 100 100 Oximetry 04/09/18 04/09/18 04/09/18 00:00 00:06 00:10 Temperature 97.1 F L Pulse Rate 74 85 Pulse Rate [ From Monitor] Pulse Rate [ Right Radial] Respiratory 18 22 Rate Blood Pressure 115/68 122/57 O2 Sat by Pulse 98 100 Oximetry 04/09/18 04/09/18 04/09/18 00:20 00:30 01:42 Temperature Pulse Rate 79 85 96 H Pulse Rate [ From Monitor] Pulse Rate [ Right Radial] Respiratory 20 19 Rate Blood Pressure 125/56 125/56 119/63 O2 Sat by Pulse 100 100 Oximetry 04/09/18 04/09/18 04/09/18 02:00 02:10 02:20 Temperature 97.1 F L Pulse Rate 81 73 68 Pulse Rate [ From Monitor] Pulse Rate [ Right Radial] Respiratory 18 23 Rate Blood Pressure O2 Sat by Pulse 100 Oximetry 04/09/18 04/09/18 04/09/18 02:30 02:40 02:50 Temperature Pulse Rate 60 70 65 Pulse Rate [ From Monitor] Pulse Rate [ Right Radial] Respiratory 18 17 18 Rate Blood Pressure 89/53 116/48 O2 Sat by Pulse 100 100 100 Oximetry 04/09/18 04/09/18 04/09/18 03:00 03:10 03:20 Temperature Pulse Rate 66 67 75 Pulse Rate [ From Monitor] Pulse Rate [ Right Radial] Respiratory 16 15 16 Rate Blood Pressure 111/59 111/59 123/59 O2 Sat by Pulse 100 100 98 Oximetry 04/09/18 04/09/18 04/09/18 03:30 03:31 03:39 Temperature 98.9 F Pulse Rate 73 Pulse Rate [ From Monitor] Pulse Rate [ 76 Right Radial] Respiratory 18 20 Rate Blood Pressure 123/59 O2 Sat by Pulse 100 97 Oximetry 04/09/18 04/09/18 04/09/18 03:40 03:50 04:00 Temperature Pulse Rate 74 77 77 Pulse Rate [ From Monitor] Pulse Rate [ Right Radial] Respiratory 11 L 18 18 Rate Blood Pressure 123/59 145/52 133/50 O2 Sat by Pulse 100 100 97 Oximetry 04/09/18 04/09/18 04/09/18 04:10 04:20 04:30 Temperature Pulse Rate 77 80 78 Pulse Rate [ From Monitor] Pulse Rate [ Right Radial] Respiratory 16 19 15 Rate Blood Pressure 133/50 119/57 122/59 O2 Sat by Pulse 100 100 100 Oximetry 04/09/18 04/09/18 04/09/18 04:40 04:50 05:00 Temperature Pulse Rate 93 H 73 69 Pulse Rate [ From Monitor] Pulse Rate [ Right Radial] Respiratory 20 18 17 Rate Blood Pressure 119/57 116/54 117/51 O2 Sat by Pulse 100 100 100 Oximetry 04/09/18 04/09/18 04/09/18 05:10 05:20 05:30 Temperature Pulse Rate 71 74 84 Pulse Rate [ From Monitor] Pulse Rate [ Right Radial] Respiratory 19 18 21 Rate Blood Pressure 117/51 115/59 100/53 O2 Sat by Pulse 100 100 100 Oximetry 04/09/18 04/09/18 04/09/18 05:40 05:50 06:00 Temperature Pulse Rate 93 H 86 84 Pulse Rate [ From Monitor] Pulse Rate [ Right Radial] Respiratory 21 21 16 Rate Blood Pressure 100/53 104/52 104/52 O2 Sat by Pulse 100 100 100 Oximetry 04/09/18 04/09/18 04/09/18 06:10 06:20 06:30 Temperature Pulse Rate 83 86 86 Pulse Rate [ From Monitor] Pulse Rate [ Right Radial] Respiratory 14 15 17 Rate Blood Pressure 102/32 88/36 89/45 O2 Sat by Pulse 100 100 100 Oximetry 04/09/18 04/09/18 04/09/18 06:40 06:50 07:00 Temperature Pulse Rate 87 95 H 78 Pulse Rate [ From Monitor] Pulse Rate [ Right Radial] Respiratory 18 15 15 Rate Blood Pressure 89/45 87/36 87/36 O2 Sat by Pulse 100 100 100 Oximetry 04/09/18 04/09/18 04/09/18 07:10 07:20 07:30 Temperature Pulse Rate 84 81 91 H Pulse Rate [ From Monitor] Pulse Rate [ Right Radial] Respiratory 17 17 20 Rate Blood Pressure 93/46 87/36 87/36 O2 Sat by Pulse 100 100 100 Oximetry 04/09/18 04/09/18 04/09/18 07:40 07:50 08:00 Temperature Pulse Rate 76 89 81 Pulse Rate [ From Monitor] Pulse Rate [ Right Radial] Respiratory 19 22 26 H Rate Blood Pressure 101/44 102/39 102/39 O2 Sat by Pulse 100 100 100 Oximetry 04/09/18 04/09/18 04/09/18 08:10 08:15 08:20 Temperature Pulse Rate 80 82 Pulse Rate [ 80 From Monitor] Pulse Rate [ Right Radial] Respiratory 19 19 19 Rate Blood Pressure 100/37 95/53 O2 Sat by Pulse 100 100 100 Oximetry 04/09/18 04/09/18 04/09/18 08:30 08:40 08:50 Temperature Pulse Rate 84 80 88 Pulse Rate [ From Monitor] Pulse Rate [ Right Radial] Respiratory 17 18 17 Rate Blood Pressure 100/49 100/49 95/53 O2 Sat by Pulse 100 100 100 Oximetry 04/09/18 09:00 Temperature Pulse Rate 84 Pulse Rate [ From Monitor] Pulse Rate [ Right Radial] Respiratory 15 Rate Blood Pressure 110/60 O2 Sat by Pulse 100 Oximetry - General Appearance General appearance: well-developed, well-nourished EENT: ATNC, PERRL, mucous membranes moist Neck: no JVD, no carotid bruit Respiratory: Present: Clear to Ascultation. Absent: Rales, Ronchi Cardiology: regular, S1S2 Gastrointestinal: normoactive bowel sounds, no hypoactive bowel sounds, no absent bowel sounds Integumentary: no rash, warm and dry Neurologic: no focal deficit, no asterixis Musculoskeletal: other (no edema in BLE) Psychiatric: mood/affect appropriate, cooperative - Lab 04/09/18 06:00 04/09/18 06:00 Most recent lab results Calcium 6.8 mg/dL (8.4-10.2) L 04/09/18 06:00 Phosphorus 2.80 mg/dL (2.5-4.5) 04/09/18 06:00 Urine Creatinine 24.0 mg/dL (0.1-20.0) H 04/08/18 15:18 Urine Sodium 60 mmol/L 04/08/18 15:43 Urine Total Protein 57 mg/dL (5-11.8) H 04/08/18 15:18 Medications & Allergies - Medications Allergies/Adverse Reactions: Allergies No Known Allergies Allergy (Verified 04/08/18 02:43) Home Medications: Home Medications Medication Instructions Recorded Confirmed Last Taken Type Docusate Sodium [Colace CAP] 100 mg PO BID PRN 06/18/16 04/08/18 04/07/18 History Apixaban [Eliquis] 2.5 mg PO Q12HR #60 tablet 08/12/16 04/08/18 04/07/18 Rx Levothyroxine [Synthroid] 75 mcg PO DAILY@0600 #30 tablet 08/12/16 04/08/18 04/07/18 Rx Simvastatin [Zocor TAB] 40 mg PO QHS #30 tablet 08/12/16 04/08/18 04/07/18 Rx Acetaminophen [Tylenol] 325 mg PO PRN 04/08/18 04/08/18 04/07/18 History Digoxin [Lanoxin] 0.125 mg PO DAILY 04/08/18 04/08/18 04/07/18 History Insulin Detemir [Levemir Flextouch] 100 unit SQ DAILY 04/08/18 04/08/18 04/07/18 History Lisinopril [Prinivil] 5 mg PO DAILY 04/08/18 04/08/18 04/07/18 History Metoclopramide HCl 5 mg PO Q6HR 04/08/18 04/08/18 04/07/18 History Metoprolol Tartrate 25 mg PO TID 04/08/18 04/08/18 04/07/18 History Potassium Chloride [Klor-Con] 20 meq PO DAILY 04/08/18 04/08/18 04/07/18 History Simvastatin 40 mg PO DAILY 04/08/18 04/08/18 04/07/18 History Torsemide [Demadex] 20 mg PO DAILY 04/08/18 04/08/18 04/07/18 History Active Medications: Generic Name Dose Route Start Last Admin Trade Name Freq PRN Reason Stop Dose Admin Acetaminophen 650 mg 04/08/18 03:22 04/08/18 03:00 Tylenol FEEDTUBE 650 mg Q6H PRN Administration Pain, Mild (1-3) Apixaban 2.5 mg 04/08/18 10:00 04/08/18 23:10 Eliquis PO 2.5 mg Q12HR [facility] Administration Protocol Dextrose 50 ml 04/08/18 05:14 D50w (25gm) Syringe IV PRN PRN Hypoglycemia Docusate Sodium 100 mg 04/08/18 05:04 Colace PO BID PRN Constipation Donepezil HCl 5 mg 04/08/18 10:00 04/08/18 12:22 Aricept PO 5 mg QDAY [facility] Administration Famotidine 20 mg 04/08/18 10:00 04/08/18 12:16 Pepcid PO 20 mg QAM [facility] Administration Ferrous Sulfate 325 mg 04/08/18 10:00 04/08/18 12:18 Feosol PO 325 mg QDAY [facility] Administration Norepinephrine 4 mg in 250 mls @ 7.5 mls/hr 04/08/18 04:01 04/09/18 02:15 Levophed Drip 4 Mg/Ns 250 Ml IV 04/09/18 13:20 Infused TITR ONE Titration Protocol 2 MCG/MIN Piperacillin Sod/Tazobactam Sod 2.25 gm in 50 mls @ 100 mls/hr 04/08/18 06:00 04/09/18 05:25 Zosyn/Ns 2.25 Gm/50ml IV 100 mls/hr Q6HR [facility] Administration Levofloxacin/Dextrose 500 mg in 100 mls @ 100 mls/hr 04/10/18 10:00 Levaquin 500mg/100ml IV Q48HR [facility] Lactated Ringer's 1,000 mls @ 150 mls/hr 04/08/18 14:00 04/08/18 14:16 Lactated Ringers IV 150 mls/hr DIRECT [facility] Administration Sodium Chloride 1,000 mls @ 125 mls/hr 04/08/18 23:00 04/08/18 23:39 Nacl 0.45% 1000 Ml IV 125 mls/hr [facility] Administration Dextrose 1,000 mls @ 50 mls/hr 04/09/18 10:00 D5w IV DIRECT [facility] Insulin Human Regular 0 units 04/08/18 06:00 04/09/18 06:00 Humulin R SUB-Q 2 units Q4H [facility] Administration Protocol Levothyroxine Sodium 75 mcg 04/08/18 06:00 04/09/18 06:00 Synthroid PO 75 mcg DAILY@0600 [facility] Administration Ondansetron HCl 4 mg 04/08/18 04:59 Zofran IV Q8H PRN Nausea And Vomiting Pravastatin Sodium 80 mg 04/08/18 22:00 04/08/18 23:36 Pravachol PO 80 mg QHS [facility] Administration
[2018-04-09] MEDS: FEOSOL PO SCH (10:03)
[2018-04-09] MEDS: ELIQUIS PO SCH ×2 (10:03→22:56)
[2018-04-09] MEDS: PEPCID PO SCH (10:04)
[2018-04-09] MEDS: D5W 1,000 ML IV SCH (10:04)
[2018-04-09] MEDS: LEVOPHED DRIP 4 MG/NS 250 ML 4 MG/250 ML BAG IV SCH ×2 (10:05→14:02)
[2018-04-09] MEDS: ARICEPT PO SCH (10:10)
--- NOTE | 2018-04-09 11:42 | Progress Note ---
Assessment and Plan Severe sepsis with septic shock UTI Acute renal failure, vasomotor nephropathy, ischemic ATN Lactic acidosis Hyperglycemia Hypernatremia Acute on chronic encephalopathy( toxic, metabolic) h/o CVA Oropharyngeal dysphagia with PEG Anemia - get ABG to r/o acidosis - ST evaluation then address diet - feeding tube if fails bedside swallow - continue to wean vasopressor support for MAP>65 - continue volume resuscitation - place PICC line and pull femoral CVL - Continue broad spectrum antibiotics - De-escalate antibiotic therapy based on PETR and cultures reports - ID on case - continue mahajan catheter for accurate intake and output monitoring in this critically ill patient on vasopressor support with newly diagnosed ITZEL in the setting of severe sepsis and septic shock - Re-assess need for mahajan catheter daily - continue free water flushes via PEG tube for treatment of severe hypernatremia - PT/OT to evaluate - Nutritional consult for tube feeding - Aspiration precautions - Adjust all medications for CrCl/GFR. Avoid nephrotoxic agents - Accuchecks with glycemic control. Target glucose 140-180 mg/dL - VTE prophylaxis - Mobility program for pressure ulcer prevention - continue aspiration precautions - continue other care per attending / other consultants .... re-evaluate in am & prn FULL CODE CONDITION: CRITICAL PROGNOSIS: GUARDED The high probability of a clinically significant, sudden or life-threatening deterioration of the [respiratory, cardiovascular, renal] system(s) required my full and direct attention, intervention and personal management. The aggregate critical care time was [35] minutes without overlap. Time includes spent on; [x] Data Review and interpretation [x] Patient assessment and monitoring of vital signs [x] Documentation [x] Medication orders and management Subjective Date of service: 04/09/18 Principal diagnosis: Severe sepsis with shock; UTI; ITZEL; Hypernatremia Interval history: Patient is seen today for: Severe sepsis with septic shock; UTI ; Acute renal failure, vasomotor nephropathy, ischemic ATN; Lactic acidosis; Hyperglycemia; Hypernatremia Seen and examined at bedside; 24hour events reviewed; nursing and respiratory care staff consulted; no adverse overnight events reported to me; resting in bed; lethargic; remains on levophed drip at 4 mics/min; no emesis or overt aspiration reported; no seizure activity but AMS is persistent Objective Vital Signs - 12hr 01/14/19 01/14/19 01/14/19 23:45 23:50 23:52 Temperature Pulse Rate 79 81 80 Pulse Rate [ From Monitor] Pulse Rate [ Right Radial] Respiratory 16 18 19 Rate Blood Pressure 122/57 122/57 122/57 O2 Sat by Pulse 100 100 100 Oximetry 04/09/18 04/09/18 04/09/18 00:00 00:06 00:10 Temperature 97.1 F L Pulse Rate 74 85 Pulse Rate [ From Monitor] Pulse Rate [ Right Radial] Respiratory 18 22 Rate Blood Pressure 115/68 122/57 O2 Sat by Pulse 98 100 Oximetry 04/09/18 04/09/18 04/09/18 00:20 00:30 01:42 Temperature Pulse Rate 79 85 96 H Pulse Rate [ From Monitor] Pulse Rate [ Right Radial] Respiratory 20 19 Rate Blood Pressure 125/56 125/56 119/63 O2 Sat by Pulse 100 100 Oximetry 04/09/18 04/09/18 04/09/18 02:00 02:10 02:20 Temperature 97.1 F L Pulse Rate 81 73 68 Pulse Rate [ From Monitor] Pulse Rate [ Right Radial] Respiratory 18 23 Rate Blood Pressure O2 Sat by Pulse 100 Oximetry 04/09/18 04/09/18 04/09/18 02:30 02:40 02:50 Temperature Pulse Rate 60 70 65 Pulse Rate [ From Monitor] Pulse Rate [ Right Radial] Respiratory 18 17 18 Rate Blood Pressure 89/53 116/48 O2 Sat by Pulse 100 100 100 Oximetry 04/09/18 04/09/18 04/09/18 03:00 03:10 03:20 Temperature Pulse Rate 66 67 75 Pulse Rate [ From Monitor] Pulse Rate [ Right Radial] Respiratory 16 15 16 Rate Blood Pressure 111/59 111/59 123/59 O2 Sat by Pulse 100 100 98 Oximetry 04/09/18 04/09/18 04/09/18 03:30 03:31 03:39 Temperature 98.9 F Pulse Rate 73 Pulse Rate [ From Monitor] Pulse Rate [ 76 Right Radial] Respiratory 18 20 Rate Blood Pressure 123/59 O2 Sat by Pulse 100 97 Oximetry 04/09/18 04/09/18 04/09/18 03:40 03:50 04:00 Temperature Pulse Rate 74 77 77 Pulse Rate [ From Monitor] Pulse Rate [ Right Radial] Respiratory 11 L 18 18 Rate Blood Pressure 123/59 145/52 133/50 O2 Sat by Pulse 100 100 97 Oximetry 04/09/18 04/09/18 04/09/18 04:10 04:20 04:30 Temperature Pulse Rate 77 80 78 Pulse Rate [ From Monitor] Pulse Rate [ Right Radial] Respiratory 16 19 15 Rate Blood Pressure 133/50 119/57 122/59 O2 Sat by Pulse 100 100 100 Oximetry 04/09/18 04/09/18 04/09/18 04:40 04:50 05:00 Temperature Pulse Rate 93 H 73 69 Pulse Rate [ From Monitor] Pulse Rate [ Right Radial] Respiratory 20 18 17 Rate Blood Pressure 119/57 116/54 117/51 O2 Sat by Pulse 100 100 100 Oximetry 04/09/18 04/09/18 04/09/18 05:10 05:20 05:30 Temperature Pulse Rate 71 74 84 Pulse Rate [ From Monitor] Pulse Rate [ Right Radial] Respiratory 19 18 21 Rate Blood Pressure 117/51 115/59 100/53 O2 Sat by Pulse 100 100 100 Oximetry 04/09/18 04/09/18 04/09/18 05:40 05:50 06:00 Temperature Pulse Rate 93 H 86 84 Pulse Rate [ From Monitor] Pulse Rate [ Right Radial] Respiratory 21 21 16 Rate Blood Pressure 100/53 104/52 104/52 O2 Sat by Pulse 100 100 100 Oximetry 04/09/18 04/09/18 04/09/18 06:10 06:20 06:30 Temperature Pulse Rate 83 86 86 Pulse Rate [ From Monitor] Pulse Rate [ Right Radial] Respiratory 14 15 17 Rate Blood Pressure 102/32 88/36 89/45 O2 Sat by Pulse 100 100 100 Oximetry 04/09/18 04/09/18 04/09/18 06:40 06:50 07:00 Temperature Pulse Rate 87 95 H 78 Pulse Rate [ From Monitor] Pulse Rate [ Right Radial] Respiratory 18 15 15 Rate Blood Pressure 89/45 87/36 87/36 O2 Sat by Pulse 100 100 100 Oximetry 04/09/18 04/09/18 04/09/18 07:10 07:20 07:30 Temperature Pulse Rate 84 81 91 H Pulse Rate [ From Monitor] Pulse Rate [ Right Radial] Respiratory 17 17 20 Rate Blood Pressure 93/46 87/36 87/36 O2 Sat by Pulse 100 100 100 Oximetry 04/09/18 04/09/18 04/09/18 07:40 07:50 08:00 Temperature Pulse Rate 76 89 81 Pulse Rate [ From Monitor] Pulse Rate [ Right Radial] Respiratory 19 22 26 H Rate Blood Pressure 101/44 102/39 102/39 O2 Sat by Pulse 100 100 100 Oximetry 04/09/18 04/09/18 04/09/18 08:10 08:15 08:20 Temperature Pulse Rate 80 82 Pulse Rate [ 80 From Monitor] Pulse Rate [ Right Radial] Respiratory 19 19 19 Rate Blood Pressure 100/37 95/53 O2 Sat by Pulse 100 100 100 Oximetry 04/09/18 04/09/18 04/09/18 08:30 08:40 08:50 Temperature Pulse Rate 84 80 88 Pulse Rate [ From Monitor] Pulse Rate [ Right Radial] Respiratory 17 18 17 Rate Blood Pressure 100/49 100/49 95/53 O2 Sat by Pulse 100 100 100 Oximetry 04/09/18 09:00 Temperature Pulse Rate 84 Pulse Rate [ From Monitor] Pulse Rate [ Right Radial] Respiratory 15 Rate Blood Pressure 110/60 O2 Sat by Pulse 100 Oximetry Constitutional: lethargic, appears uncomfortable, other (elderly looking AF, normocephalic and atraumatic without overt respiratory distress) Eyes: non-icteric ENT: oropharynx dry, other Neck: supple, no lymphadenopathy, no JVD Effort: normal Ascultation: Bilateral: clear, diminished breath sounds Percussion: Bilateral: not dull Cardiovascular: regular rate and rhythm, other (Tachycardia, S1,S2, no murmurs, gallops or rubs) Gastrointestinal: normoactive bowel sounds, soft, non-tender, non-distended, other (no guarding, PEG in place, Mahajan cahter with tea colored urine in place) Integumentary: other (loss of skin tugor) Extremities: no cyanosis, no edema, pink and warm, pulses normal, no ischemia or petechiae Neurologic: pupils equal and round, unable to assess (otherwise) Psychiatric: other (unable to assess) CBC and BMP: 04/10/18 05:00 04/10/18 05:00 Abnormal lab findings: Abnormal Labs 04/08/18 04/08/18 04/08/18 02:50 02:50 02:50 WBC 16.5 H RBC 3.37 L Hgb 9.7 L Hct RDW 17.6 H Lymph % (Auto) 11.0 L Lymph # [place] # 1.0 H Seg Neutrophils % 82.7 H Seg Neuts % (Manual) Lymphocytes % (Manual) Seg Neutrophils # 13.7 H Seg Neutrophils # Man Lymphocytes # (Manual) Sodium 152 H Chloride 108.9 H Carbon Dioxide BUN 102 H Creatinine 1.7 H Glucose 291 H POC Glucose Lactic Acid 2.70 H* Calcium 7.8 L AST 74 H ALT 96 H Total Creatine Kinase CK-MB (CK-2) Troponin T 0.068 H Total Protein 6.2 L Albumin 2.7 L Triglycerides 247 H HDL Cholesterol 36 L Urine WBC (Auto) Urine Creatinine Urine Total Protein 04/08/18 04/08/18 04/08/18 02:50 02:57 04:30 WBC RBC Hgb Hct RDW Lymph % (Auto) Lymph # [place] # Seg Neutrophils % Seg Neuts % (Manual) Lymphocytes % (Manual) Seg Neutrophils # Seg Neutrophils # Man Lymphocytes # (Manual) Sodium Chloride Carbon Dioxide BUN Creatinine Glucose POC Glucose 289 H Lactic Acid 3.50 H* Calcium AST ALT Total Creatine Kinase CK-MB (CK-2) Troponin T Total Protein Albumin Triglycerides HDL Cholesterol Urine WBC (Auto) > 182.0 H Urine Creatinine Urine Total Protein 04/08/18 04/08/18 04/08/18 05:59 05:59 06:04 WBC RBC Hgb Hct RDW Lymph % (Auto) Lymph # [place] # Seg Neutrophils % Seg Neuts % (Manual) Lymphocytes % (Manual) Seg Neutrophils # Seg Neutrophils # Man Lymphocytes # (Manual) Sodium Chloride Carbon Dioxide BUN Creatinine Glucose POC Glucose 323 H Lactic Acid 2.70 H* Calcium AST ALT Total Creatine Kinase 1203 H CK-MB (CK-2) 4.7 H Troponin T 0.042 H D Total Protein Albumin Triglycerides HDL Cholesterol Urine WBC (Auto) Urine Creatinine Urine Total Protein 04/08/18 04/08/18 04/08/18 07:06 10:53 12:07 WBC RBC Hgb Hct RDW Lymph % (Auto) Lymph # [place] # Seg Neutrophils % Seg Neuts % (Manual) Lymphocytes % (Manual) Seg Neutrophils # Seg Neutrophils # Man Lymphocytes # (Manual) Sodium Chloride Carbon Dioxide BUN Creatinine Glucose POC Glucose 318 H Lactic Acid 2.40 H* 2.30 H* Calcium AST ALT Total Creatine Kinase CK-MB (CK-2) Troponin T Total Protein Albumin Triglycerides HDL Cholesterol Urine WBC (Auto) Urine Creatinine Urine Total Protein 04/08/18 04/08/18 04/08/18 12:46 13:17 13:19 WBC RBC Hgb Hct RDW Lymph % (Auto) Lymph # [place] # Seg Neutrophils % Seg Neuts % (Manual) Lymphocytes % (Manual) Seg Neutrophils # Seg Neutrophils # Man Lymphocytes # (Manual) Sodium Chloride Carbon Dioxide BUN Creatinine Glucose POC Glucose 335 H 291 H Lactic Acid Calcium AST ALT Total Creatine Kinase 1194 H CK-MB (CK-2) 5.1 H Troponin T Total Protein Albumin Triglycerides HDL Cholesterol Urine WBC (Auto) Urine Creatinine Urine Total Protein 04/08/18 04/08/18 04/08/18 14:32 15:18 15:40 WBC RBC Hgb Hct RDW Lymph % (Auto) Lymph # [place] # Seg Neutrophils % Seg Neuts % (Manual) Lymphocytes % (Manual) Seg Neutrophils # Seg Neutrophils # Man Lymphocytes # (Manual) Sodium Chloride Carbon Dioxide BUN Creatinine Glucose POC Glucose 280 H Lactic Acid 2.60 H* Calcium AST ALT Total Creatine Kinase CK-MB (CK-2) Troponin T Total Protein Albumin Triglycerides HDL Cholesterol Urine WBC (Auto) Urine Creatinine 24.0 H Urine Total Protein 57 H 04/08/18 04/08/18 04/08/18 16:54 17:52 18:35 WBC RBC Hgb Hct RDW Lymph % (Auto) Lymph # [place] # Seg Neutrophils % Seg Neuts % (Manual) Lymphocytes % (Manual) Seg Neutrophils # Seg Neutrophils # Man Lymphocytes # (Manual) Sodium Chloride Carbon Dioxide BUN Creatinine Glucose POC Glucose 226 H Lactic Acid 3.10 H* 2.60 H* Calcium AST ALT Total Creatine Kinase CK-MB (CK-2) Troponin T Total Protein Albumin Triglycerides HDL Cholesterol Urine WBC (Auto) Urine Creatinine Urine Total Protein 04/08/18 04/08/18 04/08/18 19:18 19:57 21:41 WBC RBC Hgb Hct RDW Lymph % (Auto) Lymph # [place] # Seg Neutrophils % Seg Neuts % (Manual) Lymphocytes % (Manual) Seg Neutrophils # Seg Neutrophils # Man Lymphocytes # (Manual) Sodium Chloride Carbon Dioxide BUN Creatinine Glucose POC Glucose 247 H Lactic Acid 2.60 H* 3.80 H* Calcium AST ALT Total Creatine Kinase CK-MB (CK-2) Troponin T Total Protein Albumin Triglycerides HDL Cholesterol Urine WBC (Auto) Urine Creatinine Urine Total Protein 04/08/18 04/09/18 04/09/18 22:56 00:27 00:27 WBC 14.5 H RBC 2.78 L Hgb 8.1 L Hct 26.4 L RDW 16.7 H Lymph % (Auto) Lymph # [place] # Seg Neutrophils % Seg Neuts % (Manual) 89.0 H Lymphocytes % (Manual) 5.0 L Seg Neutrophils # Seg Neutrophils # Man 12.9 H Lymphocytes # (Manual) 0.7 L Sodium 149 H Chloride 118.4 H Carbon Dioxide BUN 38 H Creatinine 0.6 L D Glucose 153 H POC Glucose 164 H Lactic Acid Calcium 6.6 L D AST ALT Total Creatine Kinase CK-MB (CK-2) Troponin T Total Protein Albumin Triglycerides HDL Cholesterol Urine WBC (Auto) Urine Creatinine Urine Total Protein 04/09/18 04/09/18 04/09/18 02:54 05:51 06:00 WBC 13.2 H RBC 2.84 L Hgb 8.2 L Hct 27.1 L RDW 17.2 H Lymph % (Auto) 8.5 L Lymph # 1.1 L [place] # Seg Neutrophils % 87.2 H Seg Neuts % (Manual) Lymphocytes % (Manual) Seg Neutrophils # 11.5 H Seg Neutrophils # Man Lymphocytes # (Manual) Sodium Chloride Carbon Dioxide BUN Creatinine Glucose POC Glucose 151 H 203 H Lactic Acid Calcium AST ALT Total Creatine Kinase CK-MB (CK-2) Troponin T Total Protein Albumin Triglycerides HDL Cholesterol Urine WBC (Auto) Urine Creatinine Urine Total Protein 04/09/18 04/09/18 06:00 10:18 WBC RBC Hgb Hct RDW Lymph % (Auto) Lymph # [place] # Seg Neutrophils % Seg Neuts % (Manual) Lymphocytes % (Manual) Seg Neutrophils # Seg Neutrophils # Man Lymphocytes # (Manual) Sodium 152 H Chloride 119.6 H Carbon Dioxide 21 L BUN 33 H Creatinine Glucose 187 H POC Glucose 217 H Lactic Acid Calcium 6.8 L AST ALT Total Creatine Kinase CK-MB (CK-2) Troponin T Total Protein Albumin Triglycerides HDL Cholesterol Urine WBC (Auto) Urine Creatinine Urine Total Protein Chest x-ray: image reviewed (cardiomegaly; small left pleural effusion vs atelectasis) Allied health notes reviewed: nursing
--- NOTE | 2018-04-09 13:03 | Progress Note ---
Assessment and Plan Assessment and plan: 87-year-old woman who presents from [facility] with low blood pressure and fever. Her past medical history includes CVA with right-sided hemiplegia, aphasia , non verbal, sp PEG, bed bound, does not respond or move at baseline, only opens eyes, history of CHF, diabetes, vascular dementia, anemia, hypertension, atrial fibrillation cxr; no infiltrate Diagnoses Sepsis Hypernatremia Dehydration Urinary tract infection Elevated troponin level Septic shock ITZEL -vasomotor nephropathy Afib DM Plan IV abx, follow-up urine, blood and throat cultures cont iv pressors ID consult ITZEL resolved hypotonic IVF, renal consult appreciated, free water via G tube optimize insulins DVT ppx- fully anticoagulated CCT 33 minutes History Interval history: Review of systems Constitutional: No fevers, no malaise, no joint pains CVS: No chest pain, no orthopnea, no dyspnea on exertion, no pedal edema GI: No abdominal pain, no diarrhea, no vomiting, no constipation Respiratory: No shortness of breath, no wheezing, no coughing Hospitalist Physical - Physical exam Narrative exam: General.: Mild distress HEENT: Moist mucous membranes, extraocular muscles intact, no lymphadenopathy Neck: supple Cardiac: S1-S2 heard Lungs: clear to auscultation bilaterally Abdomen: soft , nontender, nondistended, bowel sounds positive Extremities: no edema clubbing or cyanosis Skin: no rash or lesions Neurologic: opens eyes, no spontaneous movements, does not track, does not obey commands or respond, non verbal Psych: non responsive, which is her baseline - Constitutional Vitals: Temp Pulse Resp BP Pulse Ox 98.9 F 84 15 110/60 100 04/09/18 03:39 04/09/18 09:00 04/09/18 09:00 04/09/18 09:00 04/09/18 12:41 Results - Labs CBC & Chem 7: 04/10/18 05:00 04/10/18 05:00 Labs: Laboratory Last Values WBC 13.2 K/mm3 (4.5-11.0) H 04/09/18 06:00 RBC 2.84 M/mm3 (3.65-5.03) L 04/09/18 06:00 Hgb 8.2 gm/dl (10.1-14.3) L 04/09/18 06:00 Hct 27.1 % (30.3-42.9) L 04/09/18 06:00 MCV 96 fl (79-97) 04/09/18 06:00 MCH 29 pg (28-32) 04/09/18 06:00 MCHC 30 % (30-34) 04/09/18 06:00 RDW 17.2 % (13.2-15.2) H 04/09/18 06:00 Plt Count 190 K/mm3 (140-440) 04/09/18 06:00 Lymph % (Auto) 8.5 % (13.4-35.0) L 04/09/18 06:00 [place] % (Auto) 3.9 % (0.0-7.3) 04/09/18 06:00 Eos % (Auto) 0.3 % (0.0-4.3) 04/09/18 06:00 Baso % (Auto) 0.1 % (0.0-1.8) 04/09/18 06:00 Lymph # 1.1 K/mm3 (1.2-5.4) L 04/09/18 06:00 [place] # 0.5 K/mm3 (0.0-0.8) 04/09/18 06:00 Eos # 0.0 K/mm3 (0.0-0.4) 04/09/18 06:00 Baso # 0.0 K/mm3 (0.0-0.1) 04/09/18 06:00 Add Manual Diff Complete 04/09/18 00:27 Total Counted 100 04/09/18 00:27 Seg Neutrophils % 87.2 % (40.0-70.0) H 04/09/18 06:00 Seg Neuts % (Manual) 89.0 % (40.0-70.0) H 04/09/18 00:27 Band Neutrophils % 6.0 % 04/09/18 00:27 Lymphocytes % (Manual) 5.0 % (13.4-35.0) L 04/09/18 00:27 Reactive Lymphs % (Man) 0 % 04/09/18 00:27 Monocytes % (Manual) 0 % (0.0-7.3) 04/09/18 00:27 Eosinophils % (Manual) 0 % (0.0-4.3) 04/09/18 00:27 Basophils % (Manual) 0 % (0.0-1.8) 04/09/18 00:27 Metamyelocytes % 0 % 04/09/18 00:27 Myelocytes % 0 % 04/09/18 00:27 Promyelocytes % 0 % 04/09/18 00:27 Blast Cells % 0 % 04/09/18 00:27 Nucleated RBC % Not Reportable 04/09/18 00:27 Seg Neutrophils # 11.5 K/mm3 (1.8-7.7) H 04/09/18 06:00 Seg Neutrophils # Man 12.9 K/mm3 (1.8-7.7) H 04/09/18 00:27 Band Neutrophils # 0.9 K/mm3 04/09/18 00:27 Lymphocytes # (Manual) 0.7 K/mm3 (1.2-5.4) L 04/09/18 00:27 Abs React Lymphs (Man) 0.0 K/mm3 04/09/18 00:27 Monocytes # (Manual) 0.0 K/mm3 (0.0-0.8) 04/09/18 00:27 Eosinophils # (Manual) 0.0 K/mm3 (0.0-0.4) 04/09/18 00:27 Basophils # (Manual) 0.0 K/mm3 (0.0-0.1) 04/09/18 00:27 Metamyelocytes # 0.0 K/mm3 04/09/18 00:27 Myelocytes # 0.0 K/mm3 04/09/18 00:27 Promyelocytes # 0.0 K/mm3 04/09/18 00:27 Blast Cells # 0.0 K/mm3 04/09/18 00:27 WBC Morphology Not Reportable 04/09/18 00:27 Hypersegmented Neuts Not Reportable 04/09/18 00:27 Hyposegmented Neuts Not Reportable 04/09/18 00:27 Hypogranular Neuts Not Reportable 04/09/18 00:27 Smudge Cells Not Reportable 04/09/18 00:27 Toxic Granulation Not Reportable 04/09/18 00:27 Toxic Vacuolation Not Reportable 04/09/18 00:27 Dohle Bodies Not Reportable 04/09/18 00:27 Pelger-Huet Anomaly Not Reportable 04/09/18 00:27 Rene Rods Not Reportable 04/09/18 00:27 Platelet Estimate Consistent w auto 04/09/18 00:27 Clumped Platelets Not Reportable 04/09/18 00:27 Plt Clumps, EDTA Not Reportable 04/09/18 00:27 Large Platelets Not Reportable 04/09/18 00:27 Giant Platelets Not Reportable 04/09/18 00:27 Platelet Satelliting Not Reportable 04/09/18 00:27 Plt Morphology Comment Not Reportable 04/09/18 00:27 RBC Morphology Not Reportable 04/09/18 00:27 Dimorphic RBCs Not Reportable 04/09/18 00:27 Polychromasia Not Reportable 04/09/18 00:27 Hypochromasia 1+ 04/09/18 00:27 Poikilocytosis Not Reportable 04/09/18 00:27 Anisocytosis 1+ 04/09/18 00:27 Microcytosis Not Reportable 04/09/18 00:27 Macrocytosis Not Reportable 04/09/18 00:27 Spherocytes Not Reportable 04/09/18 00:27 Pappenheimer Bodies Not Reportable 04/09/18 00:27 Sickle Cells Not Reportable 04/09/18 00:27 Target Cells Not Reportable 04/09/18 00:27 Tear Drop Cells Not Reportable 04/09/18 00:27 Ovalocytes Not Reportable 04/09/18 00:27 Helmet Cells Not Reportable 04/09/18 00:27 [place] Bodies Not Reportable 04/09/18 00:27 [place] Rings Not Reportable 04/09/18 00:27 [place] Cells Not Reportable 04/09/18 00:27 Bite Cells Not Reportable 04/09/18 00:27 Crenated Cell Not Reportable 04/09/18 00:27 Elliptocytes Not Reportable 04/09/18 00:27 Acanthocytes (Spur) Not Reportable 04/09/18 00:27 Rouleaux Not Reportable 04/09/18 00:27 Hemoglobin C Crystals Not Reportable 04/09/18 00:27 Schistocytes Not Reportable 04/09/18 00:27 Malaria parasites Not Reportable 04/09/18 00:27 Ajay Bodies Not Reportable 04/09/18 00:27 Hem Pathologist Commnt No 04/09/18 00:27 POC ABG pH 7.466 (7.35-7.45) H 04/09/18 12:42 POC ABG pCO2 24.6 (35-45) L 04/09/18 12:42 POC ABG pO2 120 (80-105) H 04/09/18 12:42 POC ABG HCO3 17.7 04/09/18 12:42 POC ABG Total CO2 18 04/09/18 12:42 POC ABG O2 Sat 99 04/09/18 12:42 POC ABG Base Excess -6 04/09/18 12:42 FiO2 28 % 04/09/18 12:42 Sodium 152 mmol/L (137-145) H 04/09/18 06:00 Potassium 4.1 mmol/L (3.6-5.0) 04/09/18 06:00 Chloride 119.6 mmol/L (98-107) H 04/09/18 06:00 Carbon Dioxide 21 mmol/L (22-30) L 04/09/18 06:00 Anion Gap 16 mmol/L 04/09/18 06:00 BUN 33 mg/dL (7-17) H 04/09/18 06:00 Creatinine 0.7 mg/dL (0.7-1.2) 04/09/18 06:00 Estimated GFR > 60 ml/min 04/09/18 06:00 BUN/Creatinine Ratio 47 % 04/09/18 06:00 Glucose 187 mg/dL (65-100) H 04/09/18 06:00 POC Glucose 217 (70-105) H 04/09/18 10:18 Lactic Acid 1.60 mmol/L (0.7-2.0) 04/08/18 23:30 Calcium 6.8 mg/dL (8.4-10.2) L 04/09/18 06:00 Phosphorus 2.80 mg/dL (2.5-4.5) 04/09/18 06:00 Total Bilirubin 0.30 mg/dL (0.1-1.2) 04/08/18 02:50 AST 74 units/L (5-40) H 04/08/18 02:50 ALT 96 units/L (7-56) H 04/08/18 02:50 Alkaline Phosphatase 70 units/L (35-129) 04/08/18 02:50 Total Creatine Kinase 1194 units/L (30-135) H 04/08/18 12:46 CK-MB (CK-2) 5.1 ng/mL (0.0-4.0) H 04/08/18 12:46 CK-MB (CK-2) Rel Index 0.4 (0-4) 04/08/18 12:46 Troponin T 0.018 ng/mL (0.00-0.029) 04/08/18 12:46 Total Protein 6.2 g/dL (6.3-8.2) L 04/08/18 02:50 Albumin 2.7 g/dL (3.9-5) L 04/08/18 02:50 Albumin/Globulin Ratio 0.8 % 04/08/18 02:50 Triglycerides 247 mg/dL (2-149) H 04/08/18 02:50 Cholesterol 116 mg/dL (50-199) 04/08/18 02:50 LDL Cholesterol Direct 55 mg/dL (50-130) 04/08/18 02:50 HDL Cholesterol 36 mg/dL (40-59) L 04/08/18 02:50 Cholesterol/HDL Ratio 3.22 % 04/08/18 02:50 Urine Color Yellow (Yellow) 04/08/18 02:57 Urine Turbidity Turbid (Clear) 04/08/18 02:57 Urine pH 6.0 (5.0-7.0) 04/08/18 02:57 Ur Specific [place] 1.014 (1.003-1.030) 04/08/18 02:57 Urine Protein 100 mg/dl mg/dL (Negative) 04/08/18 02:57 Urine Glucose (UA) Neg mg/dL (Negative) 04/08/18 02:57 Urine Ketones Tr mg/dL (Negative) 04/08/18 02:57 Urine Blood Sm (Negative) 04/08/18 02:57 Urine Nitrite Neg (Negative) 04/08/18 02:57 Urine Bilirubin Neg (Negative) 04/08/18 02:57 Urine Urobilinogen 2.0 mg/dL (<2.0) 04/08/18 02:57 Ur Leukocyte Esterase Mod (Negative) 04/08/18 02:57 Urine WBC (Auto) > 182.0 /HPF (0.0-6.0) H 04/08/18 02:57 Urine RBC (Auto) 23.0 /HPF (0.0-6.0) 04/08/18 02:57 Urine Bacteria (Auto) 4+ /HPF (Negative) 04/08/18 02:57 Calcium Oxalate Crystal 2+ 04/08/18 02:57 Amorphous Crystals 2+ 04/08/18 02:57 Urine Creatinine 24.0 mg/dL (0.1-20.0) H 04/08/18 15:18 Protein/Creatinin Ratio 2.38 04/08/18 15:18 Urine Sodium 60 mmol/L 04/08/18 15:43 Urine Total Protein 57 mg/dL (5-11.8) H 04/08/18 15:18 Digoxin 1.1 ng/mL (0.9-2.0) 04/09/18 01:23 Group A Strep Rapid Negative (Negative) 04/08/18 00:35 Blood Type O POSITIVE 04/08/18 03:44 Antibody Screen Negative 04/08/18 03:44
--- NOTE | 2018-04-09 13:49 | Consultation ---
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 She is known to our practice - last seen in our office by Dr. Brenda Mccarthy in 2015. She has dementia and is lethargic on evaluation with no family members present at bedside and thus HPI is obtained per the chart. She presented for evaluation of hypotension and fevers noted at custodial. She has subsequently been diagnosed with UTI, sepsis, ITZEL, dehydration. She is currently hypotensive requi ring levophed gtt. Cardiology has been consulted for atrial fibrillation. She is noted to be in atrial fibrillation with CVR. She was noted to have 5 beat NSVT earlier. Echo done 07/2016 showed EF 50-55%, mild LVH, abnormal diastolic function, LA mild to mod dilated, mild MR, mod TR, RVSP 41mmHg. Lexiscan MPI stress test done 09/2014 showed mod sized mostly reversible defect in mid anterior wall possibly c/w ischemia, no TID, normal LV systolic performance. Past History Past Medical History: atrial fib, diabetes, hypertension, hyperlipidemia, stroke Medications and Allergies Allergies Allergy/AdvReac Type Severity Reaction Status Date / Time No Known Allergies Allergy Verified 04/08/18 02:43 Home Medications Medication Instructions Recorded Confirmed Last Taken Type Docusate Sodium [Colace CAP] 100 mg PO BID PRN 06/18/16 04/08/18 04/07/18 History Apixaban [Eliquis] 2.5 mg PO Q12HR #60 tablet 08/12/16 04/08/18 04/07/18 Rx Levothyroxine [Synthroid] 75 mcg PO DAILY@0600 #30 tablet 08/12/16 04/08/18 04/07/18 Rx Simvastatin [Zocor TAB] 40 mg PO QHS #30 tablet 08/12/16 04/08/18 04/07/18 Rx Acetaminophen [Tylenol] 325 mg PO PRN 04/08/18 04/08/18 04/07/18 History Digoxin [Lanoxin] 0.125 mg PO DAILY 04/08/18 04/08/18 04/07/18 History Insulin Detemir [Levemir Flextouch] 100 unit SQ DAILY 04/08/18 04/08/18 04/07/18 History Lisinopril [Prinivil] 5 mg PO DAILY 04/08/18 04/08/18 04/07/18 History Metoclopramide HCl 5 mg PO Q6HR 04/08/18 04/08/18 04/07/18 History Metoprolol Tartrate 25 mg PO TID 04/08/18 04/08/18 04/07/18 History Potassium Chloride [Klor-Con] 20 meq PO DAILY 04/08/18 04/08/18 04/07/18 History Simvastatin 40 mg PO DAILY 04/08/18 04/08/18 04/07/18 History Torsemide [Demadex] 20 mg PO DAILY 04/08/18 04/08/18 04/07/18 History Active Meds: Active Medications Acetaminophen (Tylenol) 650 mg FEEDTUBE Q6H PRN PRN Reason: Pain, Mild (1-3) Last Admin: 04/08/18 03:00 Dose: 650 mg Documented by: Apixaban (Eliquis) 2.5 mg PO Q12HR [facility]; Protocol Last Admin: 04/09/18 10:03 Dose: 2.5 mg Documented by: Dextrose (D50w (25gm) Syringe) 50 ml IV PRN PRN PRN Reason: Hypoglycemia Docusate Sodium (Colace) 100 mg PO BID PRN PRN Reason: Constipation Donepezil HCl (Aricept) 5 mg PO QDAY [facility] Last Admin: 04/09/18 10:10 Dose: 5 mg Documented by: Famotidine (Pepcid) 20 mg PO QAM [facility] Last Admin: 04/09/18 10:04 Dose: 20 mg Documented by: Ferrous Sulfate (Feosol) 325 mg PO QDAY [facility] Last Admin: 04/09/18 10:03 Dose: 325 mg Documented by: Piperacillin Sod/Tazobactam Sod (Zosyn/Ns 2.25 Gm/50ml) 2.25 gm in 50 mls @ 100 mls/hr IV Q6HR [facility] Last Admin: 04/09/18 12:23 Dose: 100 mls/hr Documented by: Levofloxacin/Dextrose (Levaquin 500mg/100ml) 500 mg in 100 mls @ 100 mls/hr IV Q48HR [facility] Dextrose (D5w) 1,000 mls @ 50 mls/hr IV DIRECT [facility] Last Admin: 04/09/18 10:04 Dose: 50 mls/hr Documented by: Norepinephrine (Levophed Drip 4 Mg/Ns 250 Ml) 4 mg in 250 mls @ 7.5 mls/hr IV TITR [facility]; Protocol Last Titration: 04/09/18 12:31 Dose: 6 mcg/min, 22.5 mls/hr Documented by: Insulin Human Regular (Humulin R) 0 units SUB-Q Q4H [facility]; Protocol Last Admin: 04/09/18 10:18 Dose: 1 units Documented by: Insulin Human Regular (Humulin R) 5 units SUB-Q Q6HR [facility] Stop: 04/10/18 12:01 Levothyroxine Sodium (Synthroid) 75 mcg PO DAILY@0600 [facility] Last Admin: 04/09/18 06:00 Dose: 75 mcg Documented by: Ondansetron HCl (Zofran) 4 mg IV Q8H PRN PRN Reason: Nausea And Vomiting Pravastatin Sodium (Pravachol) 80 mg PO QHS [facility] Last Admin: 04/08/18 23:36 Dose: 80 mg Documented by: Review of Systems ROS unobtainable: due to mental status Physical Examination Vital Signs Pulse Resp 95 H 32 H 04/08/18 02:33 04/08/18 02:33 General appearance: other (lethargic, nonverbal) HEENT: Positive: PERRL Cardiac: Positive: irregularly irregular, S1/S2 Lungs: Positive: Decreased Breath Sounds, Other (CLYDE) Skin: Negative: Rash, Wound Musculoskeletal: No Pain Extremities: Absent: edema Results 04/09/18 06:00 04/09/18 06:00 Cardiac Enzymes 04/08/18 Range/Units 12:46 CK-MB (CK-2) 5.1 H (0.0-4.0) ng/mL CBC 04/09/18 04/09/18 Range/Units 00:27 06:00 WBC 14.5 H 13.2 H (4.5-11.0) K/mm3 RBC 2.78 L 2.84 L (3.65-5.03) M/mm3 Hgb 8.1 L 8.2 L (10.1-14.3) gm/dl Hct 26.4 L 27.1 L (30.3-42.9) % Plt Count 184 190 (140-440) K/mm3 Lymph # 1.1 L (1.2-5.4) K/mm3 [place] # 0.5 (0.0-0.8) K/mm3 Eos # 0.0 (0.0-0.4) K/mm3 Baso # 0.0 (0.0-0.1) K/mm3 Comprehensive Metabolic Panel 04/09/18 04/09/18 Range/Units 00:27 06:00 Sodium 149 H 152 H (137-145) mmol/L Potassium 4.0 4.1 (3.6-5.0) mmol/L Chloride 118.4 H 119.6 H (98-107) mmol/L Carbon Dioxide 22 D 21 L (22-30) mmol/L BUN 38 H 33 H (7-17) mg/dL Creatinine 0.6 L D 0.7 (0.7-1.2) mg/dL Glucose 153 H 187 H (65-100) mg/dL Calcium 6.6 L D 6.8 L (8.4-10.2) mg/dL - Imaging and Cardiology Echo: report reviewed (07/2016 showed EF 50-55%, mild LVH, abnormal diastolic function, LA mild to mod dilated, mild MR, mod TR, RVSP 41mmHg. ) EKG: report reviewed, image reviewed EKG interpretations - Telemetry EKG Rhythm: Atrial Fibrillation - EKG Supraventricular dysrhythmia: atrial fibrillation Assessment and Plan UTI / sepsis / hypotension / dehydration Management per primary/critical care. Wean vasopressors as tolerated. F/u echo. Paroxysmal atrial fibrillation with CVR Anticoagulated with Eliquis. F/u echo. NSVT Obtain thyroid profile and serum Mg. Consider addition of BB if/when BPs permit. F/u echo. H/o CVA with right-sided hemiplegia and aphasia, s/p PEG tube Anemia Hypernatremia HTN HLP DM Dementia The patient has been seen in conjunction with Dr. Barnes who agrees with the assessment and plan of care.
--- NOTE | 2018-04-09 15:31 | Consultation ---
History of Present Illness - Reason for Consult Consult date: 04/09/18 Sepsis Requesting physician: JONATHAN ALVAREZ - History of Present Illness The patient is an 87-year-old female with prior CVA, right-sided hemiplegia, aphasia, CHF, diabetes mellitus, vascular dementia who is a intermediate resident was brought to the emergency room on 04/08/2018 with fever and hypoten mando. In the ER, she was noted to be hypotensive with concerns for sepsis. Her UA showed significant pyuria. She was given IV fluid resuscitation and due to persistent hypotension requiring vasopressor support she was admitted to ICU. She also had a right femoral central line placed. She is currently on IV Zosyn. She had acute kidney injury on admission which has now started to improve. She still on pressors which are slowly being weaned. Patient is nonverbal at baseline, history obtained by chart review and by discussing with bedside RN. Past History Past Medical History: atrial fib, diabetes, hypertension, hyperlipidemia, stroke Medications and Allergies Allergies Allergy/AdvReac Type Severity Reaction Status Date / Time No Known Allergies Allergy Verified 04/08/18 02:43 Home Medications Medication Instructions Recorded Confirmed Last Taken Type Docusate Sodium [Colace CAP] 100 mg PO BID PRN 06/18/16 04/08/18 04/07/18 History Apixaban [Eliquis] 2.5 mg PO Q12HR #60 tablet 08/12/16 04/08/18 04/07/18 Rx Levothyroxine [Synthroid] 75 mcg PO DAILY@0600 #30 tablet 08/12/16 04/08/18 04/07/18 Rx Simvastatin [Zocor TAB] 40 mg PO QHS #30 tablet 08/12/16 04/08/18 04/07/18 Rx Acetaminophen [Tylenol] 325 mg PO PRN 04/08/18 04/08/18 04/07/18 History Digoxin [Lanoxin] 0.125 mg PO DAILY 04/08/18 04/08/18 04/07/18 History Insulin Detemir [Levemir Flextouch] 100 unit SQ DAILY 04/08/18 04/08/18 04/07/18 History Lisinopril [Prinivil] 5 mg PO DAILY 04/08/18 04/08/18 04/07/18 History Metoclopramide HCl 5 mg PO Q6HR 04/08/18 04/08/18 04/07/18 History Metoprolol Tartrate 25 mg PO TID 04/08/18 04/08/18 04/07/18 History Potassium Chloride [Klor-Con] 20 meq PO DAILY 04/08/18 04/08/18 04/07/18 History Simvastatin 40 mg PO DAILY 04/08/18 04/08/18 04/07/18 History Torsemide [Demadex] 20 mg PO DAILY 04/08/18 04/08/18 04/07/18 History Active Meds: Active Medications Acetaminophen (Tylenol) 650 mg FEEDTUBE Q6H PRN PRN Reason: Pain, Mild (1-3) Last Admin: 04/08/18 03:00 Dose: 650 mg Documented by: Apixaban (Eliquis) 2.5 mg PO Q12HR [facility]; Protocol Last Admin: 04/09/18 10:03 Dose: 2.5 mg Documented by: Docusate Sodium (Colace) 100 mg PO BID PRN PRN Reason: Constipation Donepezil HCl (Aricept) 5 mg PO QDAY [facility] Last Admin: 04/09/18 10:10 Dose: 5 mg Documented by: Famotidine (Pepcid) 20 mg PO QAM [facility] Last Admin: 04/09/18 10:04 Dose: 20 mg Documented by: Ferrous Sulfate (Feosol) 325 mg PO QDAY [facility] Last Admin: 04/09/18 10:03 Dose: 325 mg Documented by: Piperacillin Sod/Tazobactam Sod (Zosyn/Ns 2.25 Gm/50ml) 2.25 gm in 50 mls @ 100 mls/hr IV Q6HR [facility] Last Admin: 04/09/18 12:23 Dose: 100 mls/hr Documented by: Dextrose (D5w) 1,000 mls @ 50 mls/hr IV DIRECT [facility] Last Admin: 04/09/18 10:04 Dose: 50 mls/hr Documented by: Norepinephrine (Levophed Drip 4 Mg/Ns 250 Ml) 4 mg in 250 mls @ 7.5 mls/hr IV TITR [facility]; Protocol Last Titration: 04/09/18 14:16 Dose: 4 mcg/min, 15 mls/hr Documented by: Insulin Human Regular (Humulin R) 5 units SUB-Q Q6HR [facility] Stop: 04/10/18 12:01 Levothyroxine Sodium (Synthroid) 75 mcg PO DAILY@0600 [facility] Last Admin: 04/09/18 06:00 Dose: 75 mcg Documented by: Ondansetron HCl (Zofran) 4 mg IV Q8H PRN PRN Reason: Nausea And Vomiting Pravastatin Sodium (Pravachol) 80 mg PO QHS [facility] Last Admin: 04/08/18 23:36 Dose: 80 mg Documented by: Review of Systems ROS unobtainable: due to mental status Physical Examination - Physical Exam Narrative exam: Physical Exam: Constitutional: Alert, non verbal, no distress Head, Ears, Nose: Normocephalic, atraumatic. External ears, nose normal Eyes: Conjunctivae/corneas clear. No icterus. No ptosis. Neck: Supple, no meningeal signs Oral: unable to examine mouth Cardiovascular: S1, S2 normal. Respiratory: Good air entry, clear to auscultation bilaterally GI: Soft, non-tender; bowel sounds normal. No peritoneal signs Musculoskeletal: No pedal edema, no cyanosis. Right femoral CVL + Skin: No rash or abscess Hem/Lymphatic: No palpable cervical or supraclavicular nodes. No lymphangitis Psych: no agitation Neurological: awake, non verbal. - Constitutional Vitals: Vital Signs Temp Pulse Resp BP Pulse Ox 98.9 F 84 15 110/60 100 04/09/18 03:39 04/09/18 09:00 04/09/18 09:00 04/09/18 09:00 04/09/18 12:41 Temperature -Last 24 Hours Temperature 98.9 F Temperature 97.1 F Temperature 97.1 F Temperature 97.2 F Temperature 97.5 F Results - Labs CBC & Chem 7: 04/09/18 06:00 04/09/18 06:00 Labs: Abnormal lab results 04/08/18 04/08/18 04/08/18 Range/Units 14:32 15:18 15:40 WBC (4.5-11.0) K/mm3 RBC (3.65-5.03) M/mm3 Hgb (10.1-14.3) gm/dl Hct (30.3-42.9) % RDW (13.2-15.2) % Lymph % (Auto) (13.4-35.0) % Lymph # (1.2-5.4) K/mm3 Seg Neutrophils % (40.0-70.0) % Seg Neuts % (Manual) (40.0-70.0) % Lymphocytes % (Manual) (13.4-35.0) % Seg Neutrophils # (1.8-7.7) K/mm3 Seg Neutrophils # Man (1.8-7.7) K/mm3 Lymphocytes # (Manual) (1.2-5.4) K/mm3 POC ABG pH (7.35-7.45) POC ABG pCO2 (35-45) POC ABG pO2 (80-105) Sodium (137-145) mmol/L Chloride (98-107) mmol/L Carbon Dioxide (22-30) mmol/L BUN (7-17) mg/dL Creatinine (0.7-1.2) mg/dL Glucose (65-100) mg/dL POC Glucose 280 H (70-105) Lactic Acid 2.60 H* (0.7-2.0) mmol/L Calcium (8.4-10.2) mg/dL Urine Creatinine 24.0 H (0.1-20.0) mg/dL Urine Total Protein 57 H (5-11.8) mg/dL 04/08/18 04/08/18 04/08/18 Range/Units 16:54 17:52 18:35 WBC (4.5-11.0) K/mm3 RBC (3.65-5.03) M/mm3 Hgb (10.1-14.3) gm/dl Hct (30.3-42.9) % RDW (13.2-15.2) % Lymph % (Auto) (13.4-35.0) % Lymph # (1.2-5.4) K/mm3 Seg Neutrophils % (40.0-70.0) % Seg Neuts % (Manual) (40.0-70.0) % Lymphocytes % (Manual) (13.4-35.0) % Seg Neutrophils # (1.8-7.7) K/mm3 Seg Neutrophils # Man (1.8-7.7) K/mm3 Lymphocytes # (Manual) (1.2-5.4) K/mm3 POC ABG pH (7.35-7.45) POC ABG pCO2 (35-45) POC ABG pO2 (80-105) Sodium (137-145) mmol/L Chloride (98-107) mmol/L Carbon Dioxide (22-30) mmol/L BUN (7-17) mg/dL Creatinine (0.7-1.2) mg/dL Glucose (65-100) mg/dL POC Glucose 226 H (70-105) Lactic Acid 3.10 H* 2.60 H* (0.7-2.0) mmol/L Calcium (8.4-10.2) mg/dL Urine Creatinine (0.1-20.0) mg/dL Urine Total Protein (5-11.8) mg/dL 04/08/18 04/08/18 04/08/18 Range/Units 19:18 19:57 21:41 WBC (4.5-11.0) K/mm3 RBC (3.65-5.03) M/mm3 Hgb (10.1-14.3) gm/dl Hct (30.3-42.9) % RDW (13.2-15.2) % Lymph % (Auto) (13.4-35.0) % Lymph # (1.2-5.4) K/mm3 Seg Neutrophils % (40.0-70.0) % Seg Neuts % (Manual) (40.0-70.0) % Lymphocytes % (Manual) (13.4-35.0) % Seg Neutrophils # (1.8-7.7) K/mm3 Seg Neutrophils # Man (1.8-7.7) K/mm3 Lymphocytes # (Manual) (1.2-5.4) K/mm3 POC ABG pH (7.35-7.45) POC ABG pCO2 (35-45) POC ABG pO2 (80-105) Sodium (137-145) mmol/L Chloride (98-107) mmol/L Carbon Dioxide (22-30) mmol/L BUN (7-17) mg/dL Creatinine (0.7-1.2) mg/dL Glucose (65-100) mg/dL POC Glucose 247 H (70-105) Lactic Acid 2.60 H* 3.80 H* (0.7-2.0) mmol/L Calcium (8.4-10.2) mg/dL Urine Creatinine (0.1-20.0) mg/dL Urine Total Protein (5-11.8) mg/dL 04/08/18 04/09/18 04/09/18 Range/Units 22:56 00:27 00:27 WBC 14.5 H (4.5-11.0) K/mm3 RBC 2.78 L (3.65-5.03) M/mm3 Hgb 8.1 L (10.1-14.3) gm/dl Hct 26.4 L (30.3-42.9) % RDW 16.7 H (13.2-15.2) % Lymph % (Auto) (13.4-35.0) % Lymph # (1.2-5.4) K/mm3 Seg Neutrophils % (40.0-70.0) % Seg Neuts % (Manual) 89.0 H (40.0-70.0) % Lymphocytes % (Manual) 5.0 L (13.4-35.0) % Seg Neutrophils # (1.8-7.7) K/mm3 Seg Neutrophils # Man 12.9 H (1.8-7.7) K/mm3 Lymphocytes # (Manual) 0.7 L (1.2-5.4) K/mm3 POC ABG pH (7.35-7.45) POC ABG pCO2 (35-45) POC ABG pO2 (80-105) Sodium 149 H (137-145) mmol/L Chloride 118.4 H (98-107) mmol/L Carbon Dioxide (22-30) mmol/L BUN 38 H (7-17) mg/dL Creatinine 0.6 L D (0.7-1.2) mg/dL Glucose 153 H (65-100) mg/dL POC Glucose 164 H (70-105) Lactic Acid (0.7-2.0) mmol/L Calcium 6.6 L D (8.4-10.2) mg/dL Urine Creatinine (0.1-20.0) mg/dL Urine Total Protein (5-11.8) mg/dL 04/09/18 04/09/18 04/09/18 Range/Units 02:54 05:51 06:00 WBC 13.2 H (4.5-11.0) K/mm3 RBC 2.84 L (3.65-5.03) M/mm3 Hgb 8.2 L (10.1-14.3) gm/dl Hct 27.1 L (30.3-42.9) % RDW 17.2 H (13.2-15.2) % Lymph % (Auto) 8.5 L (13.4-35.0) % Lymph # 1.1 L (1.2-5.4) K/mm3 Seg Neutrophils % 87.2 H (40.0-70.0) % Seg Neuts % (Manual) (40.0-70.0) % Lymphocytes % (Manual) (13.4-35.0) % Seg Neutrophils # 11.5 H (1.8-7.7) K/mm3 Seg Neutrophils # Man (1.8-7.7) K/mm3 Lymphocytes # (Manual) (1.2-5.4) K/mm3 POC ABG pH (7.35-7.45) POC ABG pCO2 (35-45) POC ABG pO2 (80-105) Sodium (137-145) mmol/L Chloride (98-107) mmol/L Carbon Dioxide (22-30) mmol/L BUN (7-17) mg/dL Creatinine (0.7-1.2) mg/dL Glucose (65-100) mg/dL POC Glucose 151 H 203 H (70-105) Lactic Acid (0.7-2.0) mmol/L Calcium (8.4-10.2) mg/dL Urine Creatinine (0.1-20.0) mg/dL Urine Total Protein (5-11.8) mg/dL 04/09/18 04/09/18 04/09/18 Range/Units 06:00 10:18 12:42 WBC (4.5-11.0) K/mm3 RBC (3.65-5.03) M/mm3 Hgb (10.1-14.3) gm/dl Hct (30.3-42.9) % RDW (13.2-15.2) % Lymph % (Auto) (13.4-35.0) % Lymph # (1.2-5.4) K/mm3 Seg Neutrophils % (40.0-70.0) % Seg Neuts % (Manual) (40.0-70.0) % Lymphocytes % (Manual) (13.4-35.0) % Seg Neutrophils # (1.8-7.7) K/mm3 Seg Neutrophils # Man (1.8-7.7) K/mm3 Lymphocytes # (Manual) (1.2-5.4) K/mm3 POC ABG pH 7.466 H (7.35-7.45) POC ABG pCO2 24.6 L (35-45) POC ABG pO2 120 H (80-105) Sodium 152 H (137-145) mmol/L Chloride 119.6 H (98-107) mmol/L Carbon Dioxide 21 L (22-30) mmol/L BUN 33 H (7-17) mg/dL Creatinine (0.7-1.2) mg/dL Glucose 187 H (65-100) mg/dL POC Glucose 217 H (70-105) Lactic Acid (0.7-2.0) mmol/L Calcium 6.8 L (8.4-10.2) mg/dL Urine Creatinine (0.1-20.0) mg/dL Urine Total Protein (5-11.8) mg/dL - Imaging and Cardiology Chest x-ray: report reviewed, image reviewed (no pneumonia seen.) Assessment and Plan Cultures: 04/08/2018 blood cultures: 1 out of 4 bottles positive for gram-positive cocci 04/08/2018 urine culture: Culture in progress A/P: 87-year-old female with prior CVA, right-sided hemiplegia, aphasia, CHF, diabetes mellitus, vascular dementia who is a intermediate resident, admitted with: #1 Septic shock: Source is likely urine. Patient was significant pyuria. Chest x-ray not concerning for an obvious pneumonia. #2 Urinary tract infection: Follow-up urine culture, continue IV Zosyn for now #3 Acute encephalopathy: Likely metabolic and septic in etiology. #4 Acute kidney injury: Present on admission now improving #5 GPC bacteremia: One out of 4 bottles positive for GPC. Continue Zosyn for now. If coag-negative staph, suspect contaminant. If more bottles turn positive, would give a dose of vancomycin IV. Recs: continue IV Zosyn for now follow up blood and urine cultures pressors being weaned slowly monitor renal function remove right femoral CVL when feasible Will follow. Shannon Campos MD [facility] C: [phone] O: [phone] F: [phone]
[2018-04-09] MEDS: PRAVACHOL PO SCH (22:57)
[2018-04-10] MEDS: ZOSYN/NS 2.25 GM/50ML 2.25 GM/50 ML BAG IV SCH (05:10)
[2018-04-10 05:43] LABS: Basophils % (Auto) 0.1 % (0.0-1.8); Eosinophils # (Auto) 0.1 K/mm3 (0.0-0.4); Eosinophils % (Auto) 0.8 % (0.0-4.3); Hematocrit 23.6 % (30.3-42.9); Hemoglobin 7.3 gm/dl (10.1-14.3); Lymphocytes # (Auto) 1.1 K/mm3 (1.2-5.4); Lymphocytes % (Auto) 13.8 % (13.4-35.0); Mean Corpuscular HGB Conc 31 % (30-34); Mean Corpuscular Volume 96 fl (79-97); Monocytes # (Auto) 0.3 K/mm3 (0.0-0.8); Monocytes % (Auto) 3.3 % (0.0-7.3); Platelet Count 144 K/mm3 (140-440); Red Blood Count 2.47 M/mm3 (3.65-5.03); Red Cell Distribution Width 16.9 % (13.2-15.2)
[2018-04-10 06:08] LABS: BUN/Creatinine Ratio 35; Blood Urea Nitrogen 21 mg/dL (7-17); Calcium 6.5 mg/dL (8.4-10.2); Hemolysis Index 20
[2018-04-10] MEDS: SYNTHROID PO SCH (06:12)
[2018-04-10] MEDS: HumuLIN R SUB-Q SCH ×3 (06:12→11:49)
--- NOTE | 2018-04-10 09:41 | Progress Note ---
Addendum entered and electronically signed by GENO BARNES MD 04/10/18 11:18: ECHO 04/09/18: EF 50-55%, mild LVH UTI/sepsis blood and urine cultures pending PAF controlled No AV sima blocking agents now given hypotension continue Eliquis Anemia Hyperglycemia Original Note: Assessment and Plan UTI / sepsis / hypotension / dehydration Management per primary/critical care. GPC bacteremia - one out of 4 bottles positive for GPC. ID following. Currently weaned off levophed this AM. F/u echo. ITZEL / dehydration Renal indices improving Paroxysmal atrial fibrillation with CVR Anticoagulated with Eliquis. F/u echo. NSVT Consider addition of BB if/when BPs permit. F/u echo. H/o CVA with right-sided hemiplegia and aphasia, s/p PEG tube Anemia H/H 7.3/23.6 this AM (H/H 9.7/31.2 on admission). Recommend further eval/management per primary. Pt is anticoagulated with Eliquis 2.5mg BID. Hypernatremia HTN HLP DM Dementia / ? encephalopathy The patient has been seen in conjunction with Dr. Barnes who agrees with the assessment and plan of care. Subjective Date of service: 04/10/18 Principal diagnosis: AFib Interval history: pt resting in bed, eyes open, nonverbal at baseline. family member at bedside reports pt appears more comfortable today. remains in AFib with CVR on telemetry. Objective Last Vital Signs Temp 99.4 F 04/10/18 04:00 Pulse 78 04/10/18 08:41 Resp 18 04/10/18 08:41 BP 96/52 04/10/18 08:41 Pulse Ox 100 04/10/18 08:41 - Physical Examination General: No Apparent Distress, Other (nonverbal) HEENT: Positive: PERRL Neck: Positive: neck supple Cardiac: Positive: irregularly irregular, S1/S2 Lungs: Positive: Decreased Breath Sounds Neuro: Positive: Other (CLYDE) Skin: Negative: Rash, Wound Musculoskeletal: No Pain Extremities: Absent: edema - Labs and Meds CBC 04/10/18 Range/Units 05:00 WBC 7.8 (4.5-11.0) K/mm3 RBC 2.47 L (3.65-5.03) M/mm3 Hgb 7.3 L (10.1-14.3) gm/dl Hct 23.6 L (30.3-42.9) % Plt Count 144 (140-440) K/mm3 Lymph # 1.1 L (1.2-5.4) K/mm3 [place] # 0.3 (0.0-0.8) K/mm3 Eos # 0.1 (0.0-0.4) K/mm3 Baso # 0.0 (0.0-0.1) K/mm3 Comprehensive Metabolic Panel 04/10/18 Range/Units 05:00 Sodium 150 H (137-145) mmol/L Potassium 3.7 (3.6-5.0) mmol/L Chloride 120.0 H (98-107) mmol/L Carbon Dioxide 20 L (22-30) mmol/L BUN 21 H (7-17) mg/dL Creatinine 0.6 L (0.7-1.2) mg/dL Glucose 189 H (65-100) mg/dL Calcium 6.5 L (8.4-10.2) mg/dL - Imaging and Cardiology EKG: report reviewed, image reviewed Echo: report reviewed (07/2016 showed EF 50-55%, mild LVH, abnormal diastolic function, LA mild to mod dilated, mild MR, mod TR, RVSP 41mmHg. ) - Telemetry EKG Rhythm: Atrial Fibrillation
[2018-04-10] MEDS: ARICEPT PO SCH (09:49)
[2018-04-10] MEDS: FEOSOL PO SCH (09:49)
[2018-04-10] MEDS: PEPCID PO SCH (09:50)
[2018-04-10] MEDS: D5W 1,000 ML IV SCH (09:50)
[2018-04-10] MEDS: ELIQUIS PO SCH (09:50)
[2018-04-10] MEDS ORDERED: LEVAQUIN 500MG/100ML 500 MG/100 ML BAG IV SCH (10:00)
--- NOTE | 2018-04-10 11:45 | Progress Note ---
Assessment and Plan Cultures: 04/08/2018 blood cultures: 1 out of 4 bottles positive for CoNS 04/08/2018 urine culture: Culture in progress A/P: 87-year-old female with prior CVA, right-sided hemiplegia, aphasia, CHF, diabetes mellitus, vascular dementia who is a correction resident, admitted with: #1 Septic shock: Source is likely urine. Patient was significant pyuria. Chest x-ray not concerning for an obvious pneumonia. #2 Urinary tract infection: Follow-up urine culture, will switch to Cefepime 1 gm q12 hrs #3 Acute encephalopathy: Likely metabolic and septic in etiology. #4 Acute kidney injury: Present on admission now improving. Renally adjust accordingly. #5 GPC bacteremia: One out of 4 bottles positive for CoNS, likely contaminant. No further work up needed. Recs: discontinued IV Zosyn blood culture growing 1/4 CoNS, likely contaminant started IV Cefepime 1 gm q12 hrs remove right femoral CVL when feasible Will follow. Shannon Campos MD [facility] C: [phone] O: [phone] F: [phone] Subjective Date of service: 04/10/18 Principal diagnosis: AFib Interval history: No fever. Off pressors. Non verbal at baseline. Abbott + with good urine output. Objective - Exam Narrative Exam: Physical Exam: Constitutional: Alert, non verbal, no distress Head, Ears, Nose: Normocephalic, atraumatic. External ears, nose normal Eyes: Conjunctivae/corneas clear. No icterus. No ptosis. Neck: Supple, no meningeal signs Oral: unable to evaluate Cardiovascular: S1, S2 normal. Respiratory: Good air entry, clear to auscultation bilaterally GI: Soft, non-tender; bowel sounds normal. No peritoneal signs Musculoskeletal: No pedal edema, no cyanosis. Right femoral CVL + Skin: No rash or abscess Hem/Lymphatic: No palpable cervical or supraclavicular nodes. No lymphangitis Psych: no agitation Neurological: awake, non verbal. - Constitutional Vitals: Vital Signs Temp Pulse Resp BP Pulse Ox 99.4 F 78 18 96/52 100 04/10/18 04:00 04/10/18 08:41 04/10/18 08:41 04/10/18 08:41 04/10/18 08:41 Temperature -Last 24 Hours Temperature 99.4 F Temperature 99.1 F Temperature 99.5 F - Labs CBC & Chem 7: 04/10/18 05:00 04/10/18 05:00 Labs: Abnormal lab results 04/09/18 04/09/18 04/09/18 Range/Units 12:42 16:50 17:40 RBC (3.65-5.03) M/mm3 Hgb (10.1-14.3) gm/dl Hct (30.3-42.9) % RDW (13.2-15.2) % Lymph # (1.2-5.4) K/mm3 Seg Neutrophils % (40.0-70.0) % POC ABG pH 7.466 H (7.35-7.45) POC ABG pCO2 24.6 L (35-45) POC ABG pO2 120 H (80-105) Sodium (137-145) mmol/L Chloride (98-107) mmol/L Carbon Dioxide (22-30) mmol/L BUN (7-17) mg/dL Creatinine (0.7-1.2) mg/dL Glucose (65-100) mg/dL POC Glucose 244 H (70-105) Calcium (8.4-10.2) mg/dL Phosphorus (2.5-4.5) mg/dL Magnesium 2.60 H (1.7-2.3) mg/dL 04/09/18 04/10/18 04/10/18 Range/Units 23:55 00:33 05:00 RBC 2.47 L (3.65-5.03) M/mm3 Hgb 7.3 L (10.1-14.3) gm/dl Hct 23.6 L (30.3-42.9) % RDW 16.9 H (13.2-15.2) % Lymph # 1.1 L (1.2-5.4) K/mm3 Seg Neutrophils % 82.0 H (40.0-70.0) % POC ABG pH (7.35-7.45) POC ABG pCO2 (35-45) POC ABG pO2 (80-105) Sodium (137-145) mmol/L Chloride (98-107) mmol/L Carbon Dioxide (22-30) mmol/L BUN (7-17) mg/dL Creatinine (0.7-1.2) mg/dL Glucose (65-100) mg/dL POC Glucose 233 H 176 H (70-105) Calcium (8.4-10.2) mg/dL Phosphorus (2.5-4.5) mg/dL Magnesium (1.7-2.3) mg/dL 04/10/18 04/10/18 04/10/18 Range/Units 05:00 05:19 11:42 RBC (3.65-5.03) M/mm3 Hgb (10.1-14.3) gm/dl Hct (30.3-42.9) % RDW (13.2-15.2) % Lymph # (1.2-5.4) K/mm3 Seg Neutrophils % (40.0-70.0) % POC ABG pH (7.35-7.45) POC ABG pCO2 (35-45) POC ABG pO2 (80-105) Sodium 150 H (137-145) mmol/L Chloride 120.0 H (98-107) mmol/L Carbon Dioxide 20 L (22-30) mmol/L BUN 21 H (7-17) mg/dL Creatinine 0.6 L (0.7-1.2) mg/dL Glucose 189 H (65-100) mg/dL POC Glucose 197 H 197 H (70-105) Calcium 6.5 L (8.4-10.2) mg/dL Phosphorus 2.10 L D (2.5-4.5) mg/dL Magnesium (1.7-2.3) mg/dL
[2018-04-10] MEDS ORDERED: PANCREAZE DR 10,500 UNIT FEEDTUBE PRN (11:46)
[2018-04-10] MEDS ORDERED: SIMPLE SYRUP FEEDTUBE PRN ×2 (11:46)
[2018-04-10] MEDS ORDERED: SODIUM BICARBONATE FEEDTUBE PRN (11:46)
--- NOTE | 2018-04-10 12:03 | Progress Note ---
Assessment and Plan Assessment: Septic shock secondary to urosepsis Acute renal failure secondary to ischemic ATN Hypernatremia secondary to low oral intake Hypocalcemia Anemia in chronic disease Plan: - Improved serum creatinine but noted to have elevated proteinuria, will check SPEP-pending - On D5W@ 50 ml/hr for hypernatremia and encouraged free water flushes of 400 ml every 4 hours - Hypocalcemia- obtain vitmain D, PTh and ionized calcium levels. 1 gram of IV Calcium Gluconate - Antibiotics, pressor and blood culture as per primary team - Renally dose meds - Strict I&O monitoring - Obtain daily weights - Monitor electrolytes Subjective Date of service: 04/10/18 Principal diagnosis: AFib Interval history: Patient seen sleeping heavily. No family at bedside. Objective - Vital Signs Vital signs: Vital Signs - 12hr 04/10/18 04/10/18 04/10/18 00:00 00:10 00:20 Temperature Pulse Rate 86 95 H 91 H Pulse Rate [ 90 From Monitor] Respiratory 18 21 20 Rate Blood Pressure 98/56 107/74 95/58 O2 Sat by Pulse 100 100 100 Oximetry 04/10/18 04/10/18 04/10/18 00:30 00:40 00:50 Temperature Pulse Rate 90 80 90 Pulse Rate [ From Monitor] Respiratory 20 18 18 Rate Blood Pressure 103/53 103/53 103/46 O2 Sat by Pulse 100 100 100 Oximetry 04/10/18 04/10/18 04/10/18 01:00 01:10 01:20 Temperature Pulse Rate 87 88 86 Pulse Rate [ From Monitor] Respiratory 18 19 18 Rate Blood Pressure 103/54 95/58 97/60 O2 Sat by Pulse 100 100 100 Oximetry 04/10/18 04/10/18 04/10/18 01:30 01:40 01:50 Temperature Pulse Rate 77 78 85 Pulse Rate [ From Monitor] Respiratory 18 18 18 Rate Blood Pressure 93/53 93/53 95/57 O2 Sat by Pulse 100 100 100 Oximetry 04/10/18 04/10/18 04/10/18 02:00 02:10 02:20 Temperature Pulse Rate 77 86 83 Pulse Rate [ From Monitor] Respiratory 16 15 16 Rate Blood Pressure 95/57 89/48 99/52 O2 Sat by Pulse 100 100 100 Oximetry 04/10/18 04/10/18 04/10/18 02:30 02:40 02:50 Temperature Pulse Rate 84 83 76 Pulse Rate [ From Monitor] Respiratory 18 15 16 Rate Blood Pressure 98/61 98/61 104/57 O2 Sat by Pulse 100 100 100 Oximetry 04/10/18 04/10/18 04/10/18 03:00 03:11 03:21 Temperature Pulse Rate 81 78 83 Pulse Rate [ From Monitor] Respiratory 20 18 18 Rate Blood Pressure 108/60 104/57 110/56 O2 Sat by Pulse 100 100 100 Oximetry 04/10/18 04/10/18 04/10/18 03:30 03:41 03:51 Temperature Pulse Rate 85 86 82 Pulse Rate [ From Monitor] Respiratory 21 22 22 Rate Blood Pressure 96/55 96/55 102/52 O2 Sat by Pulse 100 100 100 Oximetry 04/10/18 04/10/18 04/10/18 04:00 04:11 04:21 Temperature 99.4 F Pulse Rate 86 71 81 Pulse Rate [ 85 From Monitor] Respiratory 13 21 18 Rate Blood Pressure 105/63 105/63 98/60 O2 Sat by Pulse 100 100 100 Oximetry 04/10/18 04/10/18 04/10/18 04:30 04:41 04:51 Temperature Pulse Rate 89 83 86 Pulse Rate [ From Monitor] Respiratory 17 17 17 Rate Blood Pressure 105/55 105/55 106/59 O2 Sat by Pulse 100 100 100 Oximetry 04/10/18 04/10/18 04/10/18 05:00 05:11 05:21 Temperature Pulse Rate 95 H 95 H 83 Pulse Rate [ From Monitor] Respiratory 23 18 18 Rate Blood Pressure 122/62 122/62 106/58 O2 Sat by Pulse 99 100 100 Oximetry 04/10/18 04/10/18 04/10/18 05:30 05:41 05:51 Temperature Pulse Rate 98 H 89 79 Pulse Rate [ From Monitor] Respiratory 19 16 17 Rate Blood Pressure 117/56 117/56 105/58 O2 Sat by Pulse 100 100 100 Oximetry 04/10/18 04/10/18 04/10/18 06:00 06:11 06:21 Temperature Pulse Rate 96 H 97 H 89 Pulse Rate [ From Monitor] Respiratory 17 26 H 16 Rate Blood Pressure 95/48 95/48 103/52 O2 Sat by Pulse 100 100 100 Oximetry 04/10/18 04/10/18 04/10/18 06:30 06:41 06:51 Temperature Pulse Rate 87 88 74 Pulse Rate [ From Monitor] Respiratory 19 20 17 Rate Blood Pressure 105/56 105/56 98/51 O2 Sat by Pulse 100 100 100 Oximetry 04/10/18 04/10/18 04/10/18 07:00 07:11 07:21 Temperature Pulse Rate 81 79 82 Pulse Rate [ From Monitor] Respiratory 20 16 16 Rate Blood Pressure 98/54 98/54 96/59 O2 Sat by Pulse 100 100 100 Oximetry 04/10/18 04/10/18 04/10/18 07:30 07:41 07:51 Temperature Pulse Rate 88 80 74 Pulse Rate [ From Monitor] Respiratory 18 18 16 Rate Blood Pressure 90/58 90/58 90/58 O2 Sat by Pulse 100 100 100 Oximetry 04/10/18 04/10/18 04/10/18 08:00 08:01 08:11 Temperature Pulse Rate 70 83 77 Pulse Rate [ 83 From Monitor] Respiratory 16 16 18 Rate Blood Pressure 91/61 91/61 O2 Sat by Pulse 100 100 100 Oximetry 04/10/18 04/10/18 04/10/18 08:20 08:21 08:31 Temperature Pulse Rate 72 79 Pulse Rate [ From Monitor] Respiratory 18 19 Rate Blood Pressure 96/52 96/52 O2 Sat by Pulse 100 100 100 Oximetry 04/10/18 08:41 Temperature Pulse Rate 78 Pulse Rate [ From Monitor] Respiratory 18 Rate Blood Pressure 96/52 O2 Sat by Pulse 100 Oximetry - General Appearance General appearance: well-developed EENT: ATNC Neck: no JVD, supple Respiratory: Present: Clear to Ascultation Cardiology: S1S2 Gastrointestinal: normoactive bowel sounds, other (Has PEG tbe in place) Integumentary: warm and dry Neurologic: other (Sleepy) Musculoskeletal: other (No edema) - Lab 04/10/18 05:00 04/10/18 05:00 Most recent lab results Calcium 6.5 mg/dL (8.4-10.2) L 04/10/18 05:00 Phosphorus 2.10 mg/dL (2.5-4.5) L D 04/10/18 05:00 Magnesium 2.60 mg/dL (1.7-2.3) H 04/09/18 16:50 Urine Creatinine 24.0 mg/dL (0.1-20.0) H 04/08/18 15:18 Urine Sodium 60 mmol/L 04/08/18 15:43 Urine Total Protein 57 mg/dL (5-11.8) H 04/08/18 15:18 Medications & Allergies - Medications Allergies/Adverse Reactions: Allergies No Known Allergies Allergy (Verified 04/08/18 02:43) Home Medications: Home Medications Medication Instructions Recorded Confirmed Last Taken Type Docusate Sodium [Colace CAP] 100 mg PO BID PRN 06/18/16 04/08/18 04/07/18 Hist ory Apixaban [Eliquis] 2.5 mg PO Q12HR #60 tablet 08/12/16 04/08/18 04/07/18 Rx Levothyroxine [Synthroid] 75 mcg PO DAILY@0600 #30 tablet 08/12/16 04/08/18 04/07/18 Rx Simvastatin [Zocor TAB] 40 mg PO QHS #30 tablet 08/12/16 04/08/18 04/07/18 Rx Acetaminophen [Tylenol] 325 mg PO PRN 04/08/18 04/08/18 04/07/18 History Digoxin [Lanoxin] 0.125 mg PO DAILY 04/08/18 04/08/18 04/07/18 History Insulin Detemir [Levemir Flextouch] 100 unit SQ DAILY 04/08/18 04/08/18 04/07/18 History Lisinopril [Prinivil] 5 mg PO DAILY 04/08/18 04/08/18 04/07/18 History Metoclopramide HCl 5 mg PO Q6HR 04/08/18 04/08/18 04/07/18 History Metoprolol Tartrate 25 mg PO TID 04/08/18 04/08/18 04/07/18 History Potassium Chloride [Klor-Con] 20 meq PO DAILY 04/08/18 04/08/18 04/07/18 History Simvastatin 40 mg PO DAILY 04/08/18 04/08/18 04/07/18 History Torsemide [Demadex] 20 mg PO DAILY 04/08/18 04/08/18 04/07/18 History Active Medications: Generic Name Dose Route Start Last Admin Trade Name Freq PRN Reason Stop Dose Admin Acetaminophen 650 mg 04/08/18 03:22 04/08/18 03:00 Tylenol FEEDTUBE 650 mg Q6H PRN Administration Pain, Mild (1-3) Lipase/Protease/Amylase 1 each 04/10/18 11:46 Pancrealexander Del Real 10,500 Unit FEEDTUBE PRN PRN For Clogged Feeding Tube Apixaban 2.5 mg 04/08/18 10:00 04/10/18 09:50 Eliquis PO 2.5 mg Q12HR JUNIOR Administration Protocol Docusate Sodium 100 mg 04/08/18 05:04 Colace PO BID PRN Constipation Donepezil HCl 5 mg 04/08/18 10:00 04/10/18 09:49 Aricept PO 5 mg QDAY JUNIOR Administration Famotidine 20 mg 04/08/18 10:00 04/10/18 09:50 Pepcid PO 20 mg QAM JUNIOR Administration Ferrous Sulfate 325 mg 04/08/18 10:00 04/10/18 09:49 Feosol PO 325 mg QDAY JUNIOR Administration Dextrose 1,000 mls @ 50 mls/hr 04/09/18 10:00 04/10/18 09:50 D5w IV 50 mls/hr DIRECT JUNIOR Administration Norepinephrine 4 mg in 250 mls @ 7.5 mls/hr 04/09/18 12:00 04/09/18 18:35 Levophed Drip 4 Mg/Ns 250 Ml IV 0 mcg/min TITR JUNIOR 0 mls/hr Titration Protocol 2 MCG/MIN Cefepime HCl 1 gm in 100 mls @ 200 mls/hr 04/10/18 12:00 Maxipime/Ns 1 Gm/100 Ml IV Q12HR JUNIOR Protocol Insulin Human Regular 5 units 04/09/18 18:00 04/10/18 11:49 Humulin R SUB-Q 04/10/18 12:01 5 units Q6HR JUNIOR Administration Levothyroxine Sodium 75 mcg 04/08/18 06:00 04/10/18 06:12 Synthroid PO 75 mcg DAILY@0600 JUNIOR Administration Ondansetron HCl 4 mg 04/08/18 04:59 Zofran IV Q8H PRN Nausea And Vomiting Pravastatin Sodium 80 mg 04/08/18 22:00 04/09/18 22:57 Pravachol PO 80 mg QHS JUNIOR Administration Simple Syrup 15 ml 04/10/18 11:46 Simple Syrup FEEDTUBE PRN PRN Hypoglycemia Simple Syrup 30 ml 04/10/18 11:46 Simple Syrup FEEDTUBE PRN PRN Hypoglycemia Sodium Bicarbonate 325 mg 04/10/18 11:46 Sodium Bicarbonate FEEDTUBE PRN PRN For Clogged Feeding Tube
[2018-04-10] MEDS ORDERED: NACL 0.9% 500 ML 500 ML IV SCH (14:00)
[2018-04-10] MEDS ORDERED: CALCIUM GLUCONATE 1,000 MG in NACL 0.9% 100 ML IV ONE (14:00)
[2018-04-10] MEDS: MAXIPIME/NS 1 GM/100 ML 1 GM/100 ML BAG IV SCH ×2 (14:05→21:53)
--- NOTE | 2018-04-10 14:17 | Progress Note ---
Assessment and Plan Severe sepsis with septic shock UTI Acute renal failure, vasomotor nephropathy, ischemic ATN Lactic acidosis Hyperglycemia Hypernatremia Acute on chronic encephalopathy( toxic, metabolic) h/o CVA Oropharyngeal dysphagia with PEG Anemia - ABG reviewed and with compensated metabolic acidosis - to begin enteral nutrition - continue to wean vasopressor support for MAP>65 - continue volume resuscitation - unable to thread PICC line - awaiting consent from son for central line location change - Continue broad spectrum antibiotics - De-escalate antibiotic therapy based on PETR and cultures reports - ID on case - continue mahajan catheter for accurate intake and output monitoring in this critically ill patient on vasopressor support with newly diagnosed ITZEL in the setting of severe sepsis and septic shock - Re-assess need for mahajan catheter daily - hypernatremia resolved - PT/OT to evaluate and treat - Nutritional consult for tube feeding - continue aspiration precautions - Adjust all medications for CrCl/GFR. Avoid nephrotoxic agents - Accuchecks with glycemic control. Target glucose 140-180 mg/dL - VTE prophylaxis - Mobility program for pressure ulcer prevention - continue aspiration precautions - continue other care per attending / other consultants .... re-evaluate in am & prn FULL CODE CONDITION: CRITICAL PROGNOSIS: GUARDED The high probability of a clinically significant, sudden or life-threatening deterioration of the [respiratory, cardiovascular, renal] system(s) required my full and direct attention, intervention and personal management. The aggregate critical care time was [34] minutes without overlap. Time includes spent on; [x] Data Review and interpretation [x] Patient assessment and monitoring of vital signs [x] Documentation [x] Medication orders and management Subjective Date of service: 04/10/18 Principal diagnosis: Severe sepsis with shock; UTI; ITZEL; Hypernatremia Interval history: Patient is seen today for: Severe sepsis with septic shock; UTI ; Acute renal failure, vasomotor nephropathy, ischemic ATN; Lactic acidosis; Hyperglycemia; Hypernatremia Seen and examined at bedside; 24hour events reviewed; nursing and respiratory care staff consulted; no adverse overnight events reported to me; resting in bed; remains on levophed drip at 4 mics/min; AMS is persistent and chronic per care-representative personal service; no emesis or overt aspiration and no seizure activity Objective Vital Signs - 12hr 04/10/18 04/10/18 04/10/18 02:20 02:30 02:40 Temperature Pulse Rate 83 84 83 Pulse Rate [ From Monitor] Respiratory 16 18 15 Rate Blood Pressure 99/52 98/61 98/61 O2 Sat by Pulse 100 100 100 Oximetry 04/10/18 04/10/18 04/10/18 02:50 03:00 03:11 Temperature Pulse Rate 76 81 78 Pulse Rate [ From Monitor] Respiratory 16 20 18 Rate Blood Pressure 104/57 108/60 104/57 O2 Sat by Pulse 100 100 100 Oximetry 04/10/18 04/10/18 04/10/18 03:21 03:30 03:41 Temperature Pulse Rate 83 85 86 Pulse Rate [ From Monitor] Respiratory 18 21 22 Rate Blood Pressure 110/56 96/55 96/55 O2 Sat by Pulse 100 100 100 Oximetry 04/10/18 04/10/18 04/10/18 03:51 04:00 04:11 Temperature 99.4 F Pulse Rate 82 86 71 Pulse Rate [ 85 From Monitor] Respiratory 22 13 21 Rate Blood Pressure 102/52 105/63 105/63 O2 Sat by Pulse 100 100 100 Oximetry 04/10/18 04/10/18 04/10/18 04:21 04:30 04:41 Temperature Pulse Rate 81 89 83 Pulse Rate [ From Monitor] Respiratory 18 17 17 Rate Blood Pressure 98/60 105/55 105/55 O2 Sat by Pulse 100 100 100 Oximetry 04/10/18 04/10/18 04/10/18 04:51 05:00 05:11 Temperature Pulse Rate 86 95 H 95 H Pulse Rate [ From Monitor] Respiratory 17 23 18 Rate Blood Pressure 106/59 122/62 122/62 O2 Sat by Pulse 100 99 100 Oximetry 04/10/18 04/10/18 04/10/18 05:21 05:30 05:41 Temperature Pulse Rate 83 98 H 89 Pulse Rate [ From Monitor] Respiratory 18 19 16 Rate Blood Pressure 106/58 117/56 117/56 O2 Sat by Pulse 100 100 100 Oximetry 04/10/18 04/10/18 04/10/18 05:51 06:00 06:11 Temperature Pulse Rate 79 96 H 97 H Pulse Rate [ From Monitor] Respiratory 17 17 26 H Rate Blood Pressure 105/58 95/48 95/48 O2 Sat by Pulse 100 100 100 Oximetry 04/10/18 04/10/18 04/10/18 06:21 06:30 06:41 Temperature Pulse Rate 89 87 88 Pulse Rate [ From Monitor] Respiratory 16 19 20 Rate Blood Pressure 103/52 105/56 105/56 O2 Sat by Pulse 100 100 100 Oximetry 04/10/18 04/10/18 04/10/18 06:51 07:00 07:11 Temperature Pulse Rate 74 81 79 Pulse Rate [ From Monitor] Respiratory 17 20 16 Rate Blood Pressure 98/51 98/54 98/54 O2 Sat by Pulse 100 100 100 Oximetry 04/10/18 04/10/18 04/10/18 07:21 07:30 07:41 Temperature Pulse Rate 82 88 80 Pulse Rate [ From Monitor] Respiratory 16 18 18 Rate Blood Pressure 96/59 90/58 90/58 O2 Sat by Pulse 100 100 100 Oximetry 04/10/18 04/10/18 04/10/18 07:51 08:00 08:01 Temperature Pulse Rate 74 70 83 Pulse Rate [ 83 From Monitor] Respiratory 16 16 16 Rate Blood Pressure 90/58 91/61 O2 Sat by Pulse 100 100 100 Oximetry 04/10/18 04/10/18 04/10/18 08:11 08:20 08:21 Temperature Pulse Rate 77 72 Pulse Rate [ From Monitor] Respiratory 18 18 Rate Blood Pressure 91/61 96/52 O2 Sat by Pulse 100 100 100 Oximetry 04/10/18 04/10/18 08:31 08:41 Temperature Pulse Rate 79 78 Pulse Rate [ From Monitor] Respiratory 19 18 Rate Blood Pressure 96/52 96/52 O2 Sat by Pulse 100 100 Oximetry Constitutional: lethargic, appears uncomfortable, other (elderly looking Female, normocephalic and atraumatic without overt respiratory distress) Eyes: non-icteric ENT: oropharynx dry, other Neck: supple, no lymphadenopathy, no JVD Effort: normal Ascultation: Bilateral: clear, diminished breath sounds Percussion: Bilateral: not dull Cardiovascular: regular rate and rhythm, other (Tachycardia, S1,S2, no murmurs, gallops or rubs) Gastrointestinal: normoactive bowel sounds, soft, non-tender, non-distended, other (no guarding, PEG in place, Mahajan cahter with tea colored urine in place) Integumentary: other (loss of skin tugor) Extremities: no cyanosis, no edema, pink and warm, pulses normal, no ischemia or petechiae Neurologic: pupils equal and round, unable to assess (otherwise) Psychiatric: other (unable to assess) CBC and BMP: 04/17/18 06:00 04/17/18 06:00 ABG, PT/INR, D-dimer: ABG POC ABG pH 7.466 (7.35-7.45) H 04/09/18 12:42 POC ABG pCO2 24.6 (35-45) L 04/09/18 12:42 POC ABG pO2 120 (80-105) H 04/09/18 12:42 POC ABG HCO3 17.7 04/09/18 12:42 POC ABG Total CO2 18 04/09/18 12:42 POC ABG O2 Sat 99 04/09/18 12:42 Abnormal lab findings: Abnormal Labs 04/08/18 04/08/18 04/08/18 02:50 02:50 02:50 WBC 16.5 H RBC 3.37 L Hgb 9.7 L Hct RDW 17.6 H Lymph % (Auto) 11.0 L Lymph # [place] # 1.0 H Seg Neutrophils % 82.7 H Seg Neuts % (Manual) Lymphocytes % (Manual) Seg Neutrophils # 13.7 H Seg Neutrophils # Man Lymphocytes # (Manual) POC ABG pH POC ABG pCO2 POC ABG pO2 Sodium 152 H Chloride 108.9 H Carbon Dioxide BUN 102 H Creatinine 1.7 H Glucose 291 H POC Glucose Lactic Acid 2.70 H* Calcium 7.8 L Phosphorus Magnesium AST 74 H ALT 96 H Total Creatine Kinase CK-MB (CK-2) Troponin T 0.068 H Total Protein 6.2 L Albumin 2.7 L Triglycerides 247 H HDL Cholesterol 36 L Urine WBC (Auto) Urine Creatinine Urine Total Protein 04/08/18 04/08/18 04/08/18 02:50 02:57 04:30 WBC RBC Hgb Hct RDW Lymph % (Auto) Lymph # [place] # Seg Neutrophils % Seg Neuts % (Manual) Lymphocytes % (Manual) Seg Neutrophils # Seg Neutrophils # Man Lymphocytes # (Manual) POC ABG pH POC ABG pCO2 POC ABG pO2 Sodium Chloride Carbon Dioxide BUN Creatinine Glucose POC Glucose 289 H Lactic Acid 3.50 H* Calcium Phosphorus Magnesium AST ALT Total Creatine Kinase CK-MB (CK-2) Troponin T Total Protein Albumin Triglycerides HDL Cholesterol Urine WBC (Auto) > 182.0 H Urine Creatinine Urine Total Protein 04/08/18 04/08/18 04/08/18 05:59 05:59 06:04 WBC RBC Hgb Hct RDW Lymph % (Auto) Lymph # [place] # Seg Neutrophils % Seg Neuts % (Manual) Lymphocytes % (Manual) Seg Neutrophils # Seg Neutrophils # Man Lymphocytes # (Manual) POC ABG pH POC ABG pCO2 POC ABG pO2 Sodium Chloride Carbon Dioxide BUN Creatinine Glucose POC Glucose 323 H Lactic Acid 2.70 H* Calcium Phosphorus Magnesium AST ALT Total Creatine Kinase 1203 H CK-MB (CK-2) 4.7 H Troponin T 0.042 H D Total Protein Albumin Triglycerides HDL Cholesterol Urine WBC (Auto) Urine Creatinine Urine Total Protein 04/08/18 04/08/18 04/08/18 07:06 10:53 12:07 WBC RBC Hgb Hct RDW Lymph % (Auto) Lymph # [place] # Seg Neutrophils % Seg Neuts % (Manual) Lymphocytes % (Manual) Seg Neutrophils # Seg Neutrophils # Man Lymphocytes # (Manual) POC ABG pH POC ABG pCO2 POC ABG pO2 Sodium Chloride Carbon Dioxide BUN Creatinine Glucose POC Glucose 318 H Lactic Acid 2.40 H* 2.30 H* Calcium Phosphorus Magnesium AST ALT Total Creatine Kinase CK-MB (CK-2) Troponin T Total Protein Albumin Triglycerides HDL Cholesterol Urine WBC (Auto) Urine Creatinine Urine Total Protein 04/08/18 04/08/18 04/08/18 12:46 13:17 13:19 WBC RBC Hgb Hct RDW Lymph % (Auto) Lymph # [place] # Seg Neutrophils % Seg Neuts % (Manual) Lymphocytes % (Manual) Seg Neutrophils # Seg Neutrophils # Man Lymphocytes # (Manual) POC ABG pH POC ABG pCO2 POC ABG pO2 Sodium Chloride Carbon Dioxide BUN Creatinine Glucose POC Glucose 335 H 291 H Lactic Acid Calcium Phosphorus Magnesium AST ALT Total Creatine Kinase 1194 H CK-MB (CK-2) 5.1 H Troponin T Total Protein Albumin Triglycerides HDL Cholesterol Urine WBC (Auto) Urine Creatinine Urine Total Protein 04/08/18 04/08/18 04/08/18 14:32 15:18 15:40 WBC RBC Hgb Hct RDW Lymph % (Auto) Lymph # [place] # Seg Neutrophils % Seg Neuts % (Manual) Lymphocytes % (Manual) Seg Neutrophils # Seg Neutrophils # Man Lymphocytes # (Manual) POC ABG pH POC ABG pCO2 POC ABG pO2 Sodium Chloride Carbon Dioxide BUN Creatinine Glucose POC Glucose 280 H Lactic Acid 2.60 H* Calcium Phosphorus Magnesium AST ALT Total Creatine Kinase CK-MB (CK-2) Troponin T Total Protein Albumin Triglycerides HDL Cholesterol Urine WBC (Auto) Urine Creatinine 24.0 H Urine Total Protein 57 H 04/08/18 04/08/18 04/08/18 16:54 17:52 18:35 WBC RBC Hgb Hct RDW Lymph % (Auto) Lymph # [place] # Seg Neutrophils % Seg Neuts % (Manual) Lymphocytes % (Manual) Seg Neutrophils # Seg Neutrophils # Man Lymphocytes # (Manual) POC ABG pH POC ABG pCO2 POC ABG pO2 Sodium Chloride Carbon Dioxide BUN Creatinine Glucose POC Glucose 226 H Lactic Acid 3.10 H* 2.60 H* Calcium Phosphorus Magnesium AST ALT Total Creatine Kinase CK-MB (CK-2) Troponin T Total Protein Albumin Triglycerides HDL Cholesterol Urine WBC (Auto) Urine Creatinine Urine Total Protein 04/08/18 04/08/18 04/08/18 19:18 19:57 21:41 WBC RBC Hgb Hct RDW Lymph % (Auto) Lymph # [place] # Seg Neutrophils % Seg Neuts % (Manual) Lymphocytes % (Manual) Seg Neutrophils # Seg Neutrophils # Man Lymphocytes # (Manual) POC ABG pH POC ABG pCO2 POC ABG pO2 Sodium Chloride Carbon Dioxide BUN Creatinine Glucose POC Glucose 247 H Lactic Acid 2.60 H* 3.80 H* Calcium Phosphorus Magnesium AST ALT Total Creatine Kinase CK-MB (CK-2) Troponin T Total Protein Albumin Triglycerides HDL Cholesterol Urine WBC (Auto) Urine Creatinine Urine Total Protein 04/08/18 04/09/18 04/09/18 22:56 00:27 00:27 WBC 14.5 H RBC 2.78 L Hgb 8.1 L Hct 26.4 L RDW 16.7 H Lymph % (Auto) Lymph # [place] # Seg Neutrophils % Seg Neuts % (Manual) 89.0 H Lymphocytes % (Manual) 5.0 L Seg Neutrophils # Seg Neutrophils # Man 12.9 H Lymphocytes # (Manual) 0.7 L POC ABG pH POC ABG pCO2 POC ABG pO2 Sodium 149 H Chloride 118.4 H Carbon Dioxide BUN 38 H Creatinine 0.6 L D Glucose 153 H POC Glucose 164 H Lactic Acid Calcium 6.6 L D Phosphorus Magnesium AST ALT Total Creatine Kinase CK-MB (CK-2) Troponin T Total Protein Albumin Triglycerides HDL Cholesterol Urine WBC (Auto) Urine Creatinine Urine Total Protein 04/09/18 04/09/18 04/09/18 02:54 05:51 06:00 WBC 13.2 H RBC 2.84 L Hgb 8.2 L Hct 27.1 L RDW 17.2 H Lymph % (Auto) 8.5 L Lymph # 1.1 L [place] # Seg Neutrophils % 87.2 H Seg Neuts % (Manual) Lymphocytes % (Manual) Seg Neutrophils # 11.5 H Seg Neutrophils # Man Lymphocytes # (Manual) POC ABG pH POC ABG pCO2 POC ABG pO2 Sodium Chloride Carbon Dioxide BUN Creatinine Glucose POC Glucose 151 H 203 H Lactic Acid Calcium Phosphorus Magnesium AST ALT Total Creatine Kinase CK-MB (CK-2) Troponin T Total Protein Albumin Triglycerides HDL Cholesterol Urine WBC (Auto) Urine Creatinine Urine Total Protein 04/09/18 04/09/18 04/09/18 06:00 10:18 12:42 WBC RBC Hgb Hct RDW Lymph % (Auto) Lymph # [place] # Seg Neutrophils % Seg Neuts % (Manual) Lymphocytes % (Manual) Seg Neutrophils # Seg Neutrophils # Man Lymphocytes # (Manual) POC ABG pH 7.466 H POC ABG pCO2 24.6 L POC ABG pO2 120 H Sodium 152 H Chloride 119.6 H Carbon Dioxide 21 L BUN 33 H Creatinine Glucose 187 H POC Glucose 217 H Lactic Acid Calcium 6.8 L Phosphorus Magnesium AST ALT Total Creatine Kinase CK-MB (CK-2) Troponin T Total Protein Albumin Triglycerides HDL Cholesterol Urine WBC (Auto) Urine Creatinine Urine Total Protein 04/09/18 04/09/18 04/09/18 16:50 17:40 23:55 WBC RBC Hgb Hct RDW Lymph % (Auto) Lymph # [place] # Seg Neutrophils % Seg Neuts % (Manual) Lymphocytes % (Manual) Seg Neutrophils # Seg Neutrophils # Man Lymphocytes # (Manual) POC ABG pH POC ABG pCO2 POC ABG pO2 Sodium Chloride Carbon Dioxide BUN Creatinine Glucose POC Glucose 244 H 233 H Lactic Acid Calcium Phosphorus Magnesium 2.60 H AST ALT Total Creatine Kinase CK-MB (CK-2) Troponin T Total Protein Albumin Triglycerides HDL Cholesterol Urine WBC (Auto) Urine Creatinine Urine Total Protein 04/10/18 04/10/18 04/10/18 00:33 05:00 05:00 WBC RBC 2.47 L Hgb 7.3 L Hct 23.6 L RDW 16.9 H Lymph % (Auto) Lymph # 1.1 L [place] # Seg Neutrophils % 82.0 H Seg Neuts % (Manual) Lymphocytes % (Manual) Seg Neutrophils # Seg Neutrophils # Man Lymphocytes # (Manual) POC ABG pH POC ABG pCO2 POC ABG pO2 Sodium 150 H Chloride 120.0 H Carbon Dioxide 20 L BUN 21 H Creatinine 0.6 L Glucose 189 H POC Glucose 176 H Lactic Acid Calcium 6.5 L Phosphorus 2.10 L D Magnesium AST ALT Total Creatine Kinase CK-MB (CK-2) Troponin T Total Protein Albumin Triglycerides HDL Cholesterol Urine WBC (Auto) Urine Creatinine Urine Total Protein 04/10/18 04/10/18 05:19 11:42 WBC RBC Hgb Hct RDW Lymph % (Auto) Lymph # [place] # Seg Neutrophils % Seg Neuts % (Manual) Lymphocytes % (Manual) Seg Neutrophils # Seg Neutrophils # Man Lymphocytes # (Manual) POC ABG pH POC ABG pCO2 POC ABG pO2 Sodium Chloride Carbon Dioxide BUN Creatinine Glucose POC Glucose 197 H 197 H Lactic Acid Calcium Phosphorus Magnesium AST ALT Total Creatine Kinase CK-MB (CK-2) Troponin T Total Protein Albumin Triglycerides HDL Cholesterol Urine WBC (Auto) Urine Creatinine Urine Total Protein Chest x-ray: image reviewed Allied health notes reviewed: nursing
[2018-04-10] MEDS ORDERED: KPHOS 15 MMOL in NACL 0.9% 250ML 250 ML IV ONE (15:00)
--- NOTE | 2018-04-10 15:44 | Progress Note ---
Assessment and Plan Assessment and plan: 87-year-old woman who presents from [facility] with low blood pressure and fever. Her past medical history includes CVA with right-sided hemiplegia, aphasia , non verbal, sp PEG, bed bound, does not respond or move at baseline, only opens eyes, history of CHF, diabetes, vascular dementia, anemia, hypertension, atrial fibrillation cxr; no infiltrate Diagnoses Sepsis Hypernatremia Dehydration Urinary tract infection Elevated troponin level Septic shock ITZEL -vasomotor nephropathy Afib DM Acute blood loss anemia GI bleed Plan IV abx, follow-up urine, blood and throat cultures cont iv pressors ID consult appreciated ITZEL resolved hypotonic IVF, renal consult appreciated, free water via G tube optimize insulins dc eliquis, start protonix drip, GI consult, transfuse 1 unit prbc DVT ppx- scds CCT 33 minutes Case dw son at bedside, he would like to discuss with his family about code status and goals of care, and will get back to us History Interval history: Review of systems Constitutional: No fevers, no malaise, no joint pains CVS: No chest pain, no orthopnea, no dyspnea on exertion, no pedal edema GI: she had a large melonotic BM today Respiratory: No shortness of breath, no wheezing, no coughing Hospitalist Physical - Physical exam Narrative exam: General.: Mild distress HEENT: Moist mucous membranes, extraocular muscles intact, no lymphadenopathy Neck: supple Cardiac: S1-S2 heard Lungs: clear to auscultation bilaterally Abdomen: soft , nontender, nondistended, bowel sounds positive Extremities: no edema clubbing or cyanosis Skin: no rash or lesions Neurologic: opens eyes, no spontaneous movements, does not track, does not obey commands or respond, non verbal Psych: non responsive, which is her baseline - Constitutional Vitals: Temp Pulse Resp BP Pulse Ox 99.4 F 78 18 96/52 100 04/10/18 04:00 04/10/18 08:41 04/10/18 08:41 04/10/18 08:41 04/10/18 08:41 General appearance: Present: other (lethargic, nonverbal) Results - Labs CBC & Chem 7: 04/10/18 05:00 04/10/18 05:00 Labs: Laboratory Last Values WBC 7.8 K/mm3 (4.5-11.0) 04/10/18 05:00 RBC 2.47 M/mm3 (3.65-5.03) L 04/10/18 05:00 Hgb 7.3 gm/dl (10.1-14.3) L 04/10/18 05:00 Hct 23.6 % (30.3-42.9) L 04/10/18 05:00 MCV 96 fl (79-97) 04/10/18 05:00 MCH 30 pg (28-32) 04/10/18 05:00 MCHC 31 % (30-34) 04/10/18 05:00 RDW 16.9 % (13.2-15.2) H 04/10/18 05:00 Plt Count 144 K/mm3 (140-440) 04/10/18 05:00 Lymph % (Auto) 13.8 % (13.4-35.0) 04/10/18 05:00 [place] % (Auto) 3.3 % (0.0-7.3) 04/10/18 05:00 Eos % (Auto) 0.8 % (0.0-4.3) 04/10/18 05:00 Baso % (Auto) 0.1 % (0.0-1.8) 04/10/18 05:00 Lymph # 1.1 K/mm3 (1.2-5.4) L 04/10/18 05:00 [place] # 0.3 K/mm3 (0.0-0.8) 04/10/18 05:00 Eos # 0.1 K/mm3 (0.0-0.4) 04/10/18 05:00 Baso # 0.0 K/mm3 (0.0-0.1) 04/10/18 05:00 Add Manual Diff Complete 04/09/18 00:27 Total Counted 100 04/09/18 00:27 Seg Neutrophils % 82.0 % (40.0-70.0) H 04/10/18 05:00 Seg Neuts % (Manual) 89.0 % (40.0-70.0) H 04/09/18 00:27 Band Neutrophils % 6.0 % 04/09/18 00:27 Lymphocytes % (Manual) 5.0 % (13.4-35.0) L 04/09/18 00:27 Reactive Lymphs % (Man) 0 % 04/09/18 00:27 Monocytes % (Manual) 0 % (0.0-7.3) 04/09/18 00:27 Eosinophils % (Manual) 0 % (0.0-4.3) 04/09/18 00:27 Basophils % (Manual) 0 % (0.0-1.8) 04/09/18 00:27 Metamyelocytes % 0 % 04/09/18 00:27 Myelocytes % 0 % 04/09/18 00:27 Promyelocytes % 0 % 04/09/18 00:27 Blast Cells % 0 % 04/09/18 00:27 Nucleated RBC % Not Reportable 04/09/18 00:27 Seg Neutrophils # 6.4 K/mm3 (1.8-7.7) 04/10/18 05:00 Seg Neutrophils # Man 12.9 K/mm3 (1.8-7.7) H 04/09/18 00:27 Band Neutrophils # 0.9 K/mm3 04/09/18 00:27 Lymphocytes # (Manual) 0.7 K/mm3 (1.2-5.4) L 04/09/18 00:27 Abs React Lymphs (Man) 0.0 K/mm3 04/09/18 00:27 Monocytes # (Manual) 0.0 K/mm3 (0.0-0.8) 04/09/18 00:27 Eosinophils # (Manual) 0.0 K/mm3 (0.0-0.4) 04/09/18 00:27 Basophils # (Manual) 0.0 K/mm3 (0.0-0.1) 04/09/18 00:27 Metamyelocytes # 0.0 K/mm3 04/09/18 00:27 Myelocytes # 0.0 K/mm3 04/09/18 00:27 Promyelocytes # 0.0 K/mm3 04/09/18 00:27 Blast Cells # 0.0 K/mm3 04/09/18 00:27 WBC Morphology Not Reportable 04/09/18 00:27 Hypersegmented Neuts Not Reportable 04/09/18 00:27 Hyposegmented Neuts Not Reportable 04/09/18 00:27 Hypogranular Neuts Not Reportable 04/09/18 00:27 Smudge Cells Not Reportable 04/09/18 00:27 Toxic Granulation Not Reportable 04/09/18 00:27 Toxic Vacuolation Not Reportable 04/09/18 00:27 Dohle Bodies Not Reportable 04/09/18 00:27 Pelger-Huet Anomaly Not Reportable 04/09/18 00:27 Rene Rods Not Reportable 04/09/18 00:27 Platelet Estimate Consistent w auto 04/09/18 00:27 Clumped Platelets Not Reportable 04/09/18 00:27 Plt Clumps, EDTA Not Reportable 04/09/18 00:27 Large Platelets Not Reportable 04/09/18 00:27 Giant Platelets Not Reportable 04/09/18 00:27 Platelet Satelliting Not Reportable 04/09/18 00:27 Plt Morphology Comment Not Reportable 04/09/18 00:27 RBC Morphology Not Reportable 04/09/18 00:27 Dimorphic RBCs Not Reportable 04/09/18 00:27 Polychromasia Not Reportable 04/09/18 00:27 Hypochromasia 1+ 04/09/18 00:27 Poikilocytosis Not Reportable 04/09/18 00:27 Anisocytosis 1+ 04/09/18 00:27 Microcytosis Not Reportable 04/09/18 00:27 Macrocytosis Not Reportable 04/09/18 00:27 Spherocytes Not Reportable 04/09/18 00:27 Pappenheimer Bodies Not Reportable 04/09/18 00:27 Sickle Cells Not Reportable 04/09/18 00:27 Target Cells Not Reportable 04/09/18 00:27 Tear Drop Cells Not Reportable 04/09/18 00:27 Ovalocytes Not Reportable 04/09/18 00:27 Helmet Cells Not Reportable 04/09/18 00:27 [place] Bodies Not Reportable 04/09/18 00:27 [place] Rings Not Reportable 04/09/18 00:27 [place] Cells Not Reportable 04/09/18 00:27 Bite Cells Not Reportable 04/09/18 00:27 Crenated Cell Not Reportable 04/09/18 00:27 Elliptocytes Not Reportable 04/09/18 00:27 Acanthocytes (Spur) Not Reportable 04/09/18 00:27 Rouleaux Not Reportable 04/09/18 00:27 Hemoglobin C Crystals Not Reportable 04/09/18 00:27 Schistocytes Not Reportable 04/09/18 00:27 Malaria parasites Not Reportable 04/09/18 00:27 Ajay Bodies Not Reportable 04/09/18 00:27 Hem Pathologist Commnt No 04/09/18 00:27 POC ABG pH 7.466 (7.35-7.45) H 04/09/18 12:42 POC ABG pCO2 24.6 (35-45) L 04/09/18 12:42 POC ABG pO2 120 (80-105) H 04/09/18 12:42 POC ABG HCO3 17.7 04/09/18 12:42 POC ABG Total CO2 18 04/09/18 12:42 POC ABG O2 Sat 99 04/09/18 12:42 POC ABG Base Excess -6 04/09/18 12:42 FiO2 28 % 04/09/18 12:42 Sodium 150 mmol/L (137-145) H 04/10/18 05:00 Potassium 3.7 mmol/L (3.6-5.0) 04/10/18 05:00 Chloride 120.0 mmol/L (98-107) H 04/10/18 05:00 Carbon Dioxide 20 mmol/L (22-30) L 04/10/18 05:00 Anion Gap 14 mmol/L 04/10/18 05:00 BUN 21 mg/dL (7-17) H 04/10/18 05:00 Creatinine 0.6 mg/dL (0.7-1.2) L 04/10/18 05:00 Estimated GFR > 60 ml/min 04/10/18 05:00 BUN/Creatinine Ratio 35 % 04/10/18 05:00 Glucose 189 mg/dL (65-100) H 04/10/18 05:00 POC Glucose 197 (70-105) H 04/10/18 11:42 Lactic Acid 1.60 mmol/L (0.7-2.0) 04/08/18 23:30 Calcium 6.5 mg/dL (8.4-10.2) L 04/10/18 05:00 Phosphorus 2.10 mg/dL (2.5-4.5) L D 04/10/18 05:00 Magnesium 2.60 mg/dL (1.7-2.3) H 04/09/18 16:50 Total Bilirubin 0.30 mg/dL (0.1-1.2) 04/08/18 02:50 AST 74 units/L (5-40) H 04/08/18 02:50 ALT 96 units/L (7-56) H 04/08/18 02:50 Alkaline Phosphatase 70 units/L (35-129) 04/08/18 02:50 Total Creatine Kinase 1194 units/L (30-135) H 04/08/18 12:46 CK-MB (CK-2) 5.1 ng/mL (0.0-4.0) H 04/08/18 12:46 CK-MB (CK-2) Rel Index 0.4 (0-4) 04/08/18 12:46 Troponin T 0.018 ng/mL (0.00-0.029) 04/08/18 12:46 Total Protein 6.2 g/dL (6.3-8.2) L 04/08/18 02:50 Albumin 2.7 g/dL (3.9-5) L 04/08/18 02:50 Albumin/Globulin Ratio 0.8 % 04/08/18 02:50 Triglycerides 247 mg/dL (2-149) H 04/08/18 02:50 Cholesterol 116 mg/dL (50-199) 04/08/18 02:50 LDL Cholesterol Direct 55 mg/dL (50-130) 04/08/18 02:50 HDL Cholesterol 36 mg/dL (40-59) L 04/08/18 02:50 Cholesterol/HDL Ratio 3.22 % 04/08/18 02:50 TSH 0.753 mlU/mL (0.270-4.200) 04/09/18 16:50 Free T4 1.13 ng/dL (0.76-1.46) 04/09/18 16:50 Urine Color Yellow (Yellow) 04/08/18 02:57 Urine Turbidity Turbid (Clear) 04/08/18 02:57 Urine pH 6.0 (5.0-7.0) 04/08/18 02:57 Ur Specific [place] 1.014 (1.003-1.030) 04/08/18 02:57 Urine Protein 100 mg/dl mg/dL (Negative) 04/08/18 02:57 Urine Glucose (UA) Neg mg/dL (Negative) 04/08/18 02:57 Urine Ketones Tr mg/dL (Negative) 04/08/18 02:57 Urine Blood Sm (Negative) 04/08/18 02:57 Urine Nitrite Neg (Negative) 04/08/18 02:57 Urine Bilirubin Neg (Negative) 04/08/18 02:57 Urine Urobilinogen 2.0 mg/dL (<2.0) 04/08/18 02:57 Ur Leukocyte Esterase Mod (Negative) 04/08/18 02:57 Urine WBC (Auto) > 182.0 /HPF (0.0-6.0) H 04/08/18 02:57 Urine RBC (Auto) 23.0 /HPF (0.0-6.0) 04/08/18 02:57 Urine Bacteria (Auto) 4+ /HPF (Negative) 04/08/18 02:57 Calcium Oxalate Crystal 2+ 04/08/18 02:57 Amorphous Crystals 2+ 04/08/18 02:57 Urine Creatinine 24.0 mg/dL (0.1-20.0) H 04/08/18 15:18 Protein/Creatinin Ratio 2.38 04/08/18 15:18 Urine Sodium 60 mmol/L 04/08/18 15:43 Urine Total Protein 57 mg/dL (5-11.8) H 04/08/18 15:18 Digoxin 1.1 ng/mL (0.9-2.0) 04/09/18 01:23 Group A Strep Rapid Negative (Negative) 04/08/18 00:35 Blood Type O POSITIVE 04/08/18 03:44 Antibody Screen Negative 04/08/18 03:44 Nutrition/Malnutrition Assess - Dietary Evaluation Nutrition/Malnutrition Findings: Nutrition Notes Start: 04/09/18 16:11 Freq: Status: Active Protocol: Document 04/10/18 11:11 HANNA (Rec: 04/10/18 11:45 HANNA [email or web address]) Co-Sign 04/10/18 11:11 OL Nutrition Notes Need for Assessment generated from: Order Initial or Follow up Reassessment Current Diagnosis Diabetes Sepsis Hypertension Heart Failure Stroke Other Pertinent Diagnosis R sided hemiplegia, aphasia, dementia, A.fib Current Diet No diet order Labs/Tests Na: 150 BUN: 21 Glucose: 197 Pertinent Medications Reviewed Height 4 ft 10 in Weight 49.895 kg [place] Body Weight (lbs) 90.0 BMI 22.9 Weight Status Appropriate Subjective/Other Information MD consult for new TF. Burn Absent Trauma Absent #1 Nutrition Diagnosis Inadequate oral intake Diagnosis Progress(for reassessment Continues documentation) Is patient on ventilator? No Is Patient Ambulatory and/or Out of Bed No REE-([facility]-confined to bed) 990.288 Kcal/Kg value to use for calculation 27 Approximate Energy Requirements Using 1347 kcal/Kg Calculation Used for Recommendations [facility] Additional Notes Pro: 60-100g/day (1.2-2 g/kg BW) Fluid: 1ml/kcal Nutrition Intervention Nutrition Support: Glucerna 1.2 at 50 ml/hr with water flush of 80ml q4h or per MD Kcal 1,152 Protein (gm) 72 Fluid (mL) 966 Goal #1 TF tolerance Goal #2 TF to meet at least 80% of energy and protein needs Anticipated Discharge Needs: Unknown at this time Follow-Up By: 04/12/18 Additional Comments F/u: new TF
[2018-04-10] MEDS: NACL 0.9% 1000 ML 1,000 ML IV SCH (16:18)
[2018-04-10] MEDS: PROAMATINE PO SCH (16:22)
[2018-04-10] MEDS ORDERED: PROTONIX 80 MG in NACL 0.9% 100 ML IV SCH (19:00)
--- NOTE | 2018-04-10 20:17 | Event Note ---
Date: 04/10/18 Reviewed chart. Request for central access. Patient has femoral central line for pressors placed by ER. Already has central line access. PICC line being placed by PICC team, which is appropriate. Recommend removal of femoral line after successful PICC line placement by PICC team.
[2018-04-10] MEDS ORDERED: NACL 0.9% 500 ML 500 ML IV ONE (20:50)
[2018-04-10] MEDS: PRAVACHOL PO SCH (21:53)
[2018-04-11 05:44] LABS: Basophils % (Auto) 0.1 % (0.0-1.8); Eosinophils % (Auto) 0.4 % (0.0-4.3); Hematocrit 22.5 % (30.3-42.9); Hemoglobin 6.9 gm/dl (10.1-14.3); Lymphocytes % (Auto) 11.6 % (13.4-35.0); Mean Corpuscular HGB Conc 31 % (30-34); Mean Corpuscular Volume 95 fl (79-97); Monocytes # (Auto) 0.3 K/mm3 (0.0-0.8); Monocytes % (Auto) 3.5 % (0.0-7.3); Platelet Count 171 K/mm3 (140-440); Red Blood Count 2.36 M/mm3 (3.65-5.03); Red Cell Distribution Width 16.9 % (13.2-15.2)
[2018-04-11] MEDS: SYNTHROID PO SCH (05:57)
[2018-04-11] MEDS: D5W 1,000 ML IV SCH (05:57)
[2018-04-11] MEDS: NACL 0.9% 1000 ML 1,000 ML IV SCH ×2 (06:01→19:27)
[2018-04-11 06:02] LABS: BUN/Creatinine Ratio 23; Blood Urea Nitrogen 14 mg/dL (7-17); Calcium 6.8 mg/dL (8.4-10.2); Hemolysis Index 157
[2018-04-11] MEDS: PROAMATINE PO SCH ×2 (09:22→14:27)
--- NOTE | 2018-04-11 09:39 | Progress Note ---
Assessment and Plan UTI / sepsis / hypotension / dehydration Management per primary/critical care. GPC bacteremia - one out of 4 bottles positive for GPC. ID following. Currently weaned off levophed. ECHO 04/09/18: EF 50-55%, mild LVH GI bleed / Anemia H/H 6.9/22.5 this AM. Pt noted to develop melena. Eliquis held. Pt for endoscopy tomorrow per GI. PRBC tx per primary. Currently stable cardiac status. Pt currently at moderate cardiovascular risk for endoscopy. No current cardiac contraindications to proceeding with endoscopy at this time. ITZEL / dehydration Renal indices improving Paroxysmal atrial fibrillation with CVR Eliquis held in setting of GI bleed and anemia. NSVT Consider addition of BB if/when BPs permit. H/o CVA with right-sided hemiplegia and aphasia, s/p PEG tube Hypernatremia HTN HLP DM Dementia / ? encephalopathy The patient has been seen in conjunction with Dr. Barnes who agrees with the assessment and plan of care. Subjective Date of service: 04/11/18 Principal diagnosis: Severe sepsis with shock; UTI; ITZEL; Hypernatremia Interval history: pt resting in bed, eyes open, nonverbal at baseline. family member at bedside. remains in AFib on telemetry. Pt noted to develop melena. Objective Last Vital Signs Temp 99.4 F 04/10/18 04:00 Pulse 108 H 04/11/18 09:21 Resp 22 04/11/18 09:21 BP 101/56 04/11/18 09:21 Pulse Ox 100 04/11/18 09:21 - Physical Examination General: Other (nonverbal) HEENT: Positive: PERRL Neck: Positive: neck supple Cardiac: Positive: irregularly irregular, S1/S2 Lungs: Positive: Decreased Breath Sounds Neuro: Positive: Other (CLYDE) Skin: Negative: Rash, Wound Musculoskeletal: No Pain Extremities: Absent: edema - Labs and Meds CBC 04/11/18 Range/Units 05:19 WBC 8.6 (4.5-11.0) K/mm3 RBC 2.36 L (3.65-5.03) M/mm3 Hgb 6.9 L (10.1-14.3) gm/dl Hct 22.5 L (30.3-42.9) % Plt Count 171 (140-440) K/mm3 Lymph # 1.0 L (1.2-5.4) K/mm3 [place] # 0.3 (0.0-0.8) K/mm3 Eos # 0.0 (0.0-0.4) K/mm3 Baso # 0.0 (0.0-0.1) K/mm3 Comprehensive Metabolic Panel 04/11/18 Range/Units 05:19 Sodium 140 D (137-145) mmol/L Potassium 4.3 (3.6-5.0) mmol/L Chloride 111.3 H (98-107) mmol/L Carbon Dioxide 15 L (22-30) mmol/L BUN 14 (7-17) mg/dL Creatinine 0.6 L (0.7-1.2) mg/dL Glucose 137 H (65-100) mg/dL Calcium 6.8 L (8.4-10.2) mg/dL - Imaging and Cardiology EKG: report reviewed, image reviewed Echo: report reviewed (ECHO 04/09/18: EF 50-55%, mild LVH. 07/2016 showed EF 50- 55%, mild LVH, abnormal diastolic function, LA mild to mod dilated, mild MR, mod TR, RVSP 41mmHg. ) - Telemetry EKG Rhythm: Atrial Fibrillation - Allied health notes Allied health notes reviewed: nursing
[2018-04-11] MEDS: ARICEPT PO SCH (09:47)
[2018-04-11] MEDS: FEOSOL PO SCH (09:47)
[2018-04-11] MEDS: PEPCID PO SCH (09:47)
[2018-04-11] MEDS: MAXIPIME/NS 1 GM/100 ML 1 GM/100 ML BAG IV SCH ×2 (09:47→21:33)
--- NOTE | 2018-04-11 09:50 | Progress Note ---
Assessment and Plan -Severe sepsis with septic shock -UTI -Acute renal failure, vasomotor nephropathy, ischemic ATN -Lactic acidosis -Hyperglycemia -Hypernatremia -Acute on chronic encephalopathy( toxic, metabolic) -h/o CVA -Oropharyngeal dysphagia with PEG -Anemia -Wean vasopressor support for MAP>65 -Volume resuscitation with 1L LR -Continue broad spectrum antibiotics,follow cultures -De-escalate antibiotic therapy based on PETR and cultures reports -Mahajan catheter for accurate intake and output monitoring in this critically ill patient on vasopressor support with newly diagnosed ITZEL in the setting of severe sepsis and septic shock -Re-assess need for mahajan catheter in the next 24 hours -Will discontinue femoral CVC in the next 24 hours and assess need for ongoing CVC access -PT/OT to evaluate -Nutritional consult for tube feeding -Aspiration precautions -Adjust all medications for CrCl/GFR. Avoid nephrotoxic agents -Accuchecks with glycemic control. Target glucose 140-180 mg/dL -VTE prophylaxis -Mobility program for pressure ulcer prevention -Aspiration precautions -GI to evalute re anemia FULL CODE CONDITION: CRITICAL PROGNOSIS: GUARDED The high probability of a clinically significant, sudden or life-threatening deterioration of the [respiratory, cardiovascular, renal] system(s) required my full and direct attention, intervention and personal management. The aggregate critical care time was [35] minutes without overlap. Time includes spent on; [x] Data Review and interpretation [x] Patient assessment and monitoring of vital signs [x] Documentation [x] Medication orders and management Subjective Date of service: 04/11/18 Principal diagnosis: Severe sepsis with shock; UTI; ITZEL; Hypernatremia Objective Vital Signs - 12hr 04/10/18 04/10/18 04/10/18 21:51 22:00 22:11 Pulse Rate 115 H 115 H 107 H Pulse Rate [ From Monitor] Respiratory 18 18 19 Rate Blood Pressure 114/48 112/47 114/48 O2 Sat by Pulse 100 100 100 Oximetry 04/10/18 04/10/18 04/10/18 22:21 22:30 22:41 Pulse Rate 123 H 105 H 102 H Pulse Rate [ From Monitor] Respiratory 21 18 19 Rate Blood Pressure 108/55 119/45 119/45 O2 Sat by Pulse 100 100 100 Oximetry 04/10/18 04/10/18 04/10/18 22:51 23:01 23:11 Pulse Rate 99 H 102 H 91 H Pulse Rate [ From Monitor] Respiratory 18 19 17 Rate Blood Pressure 103/47 106/49 103/47 O2 Sat by Pulse 100 100 100 Oximetry 04/10/18 04/10/18 04/10/18 23:18 23:21 23:25 Pulse Rate 112 H 108 H 105 H Pulse Rate [ From Monitor] Respiratory 19 17 18 Rate Blood Pressure 103/47 125/37 125/37 O2 Sat by Pulse 100 100 100 Oximetry 04/10/18 04/10/18 04/10/18 23:30 23:41 23:51 Pulse Rate 110 H 98 H 100 H Pulse Rate [ From Monitor] Respiratory 19 19 19 Rate Blood Pressure 110/58 125/37 107/47 O2 Sat by Pulse 100 100 100 Oximetry 04/11/18 04/11/18 04/11/18 00:00 00:11 00:21 Pulse Rate 102 H 108 H 119 H Pulse Rate [ 88 From Monitor] Respiratory 20 21 19 Rate Blood Pressure 103/29 103/29 113/58 O2 Sat by Pulse 100 100 100 Oximetry 04/11/18 04/11/18 04/11/18 00:30 00:41 00:51 Pulse Rate 106 H 104 H Pulse Rate [ From Monitor] Respiratory 21 24 Rate Blood Pressure 108/43 108/43 106/58 O2 Sat by Pulse 100 100 Oximetry 04/11/18 04/11/18 04/11/18 01:00 01:11 01:21 Pulse Rate 106 H 93 H 102 H Pulse Rate [ From Monitor] Respiratory 22 22 21 Rate Blood Pressure 104/53 104/53 107/50 O2 Sat by Pulse 100 100 100 Oximetry 04/11/18 04/11/18 04/11/18 01:30 01:41 01:51 Pulse Rate 101 H 96 H 94 H Pulse Rate [ From Monitor] Respiratory 22 22 20 Rate Blood Pressure 107/49 107/49 107/54 O2 Sat by Pulse 100 100 100 Oximetry 04/11/18 04/11/18 04/11/18 02:00 02:11 02:21 Pulse Rate 100 H 94 H 99 H Pulse Rate [ From Monitor] Respiratory 19 21 20 Rate Blood Pressure 108/62 108/62 107/49 O2 Sat by Pulse 100 100 100 Oximetry 04/11/18 04/11/18 04/11/18 02:30 02:41 02:51 Pulse Rate 90 98 H 107 H Pulse Rate [ From Monitor] Respiratory 18 20 20 Rate Blood Pressure 101/35 101/35 108/41 O2 Sat by Pulse 100 100 100 Oximetry 04/11/18 04/11/18 04/11/18 03:00 03:11 03:21 Pulse Rate 112 H 113 H 94 H Pulse Rate [ From Monitor] Respiratory 21 18 19 Rate Blood Pressure 118/37 118/37 118/33 O2 Sat by Pulse 100 100 100 Oximetry 04/11/18 04/11/18 04/11/18 03:30 03:41 03:51 Pulse Rate 99 H 105 H 112 H Pulse Rate [ From Monitor] Respiratory 21 17 21 Rate Blood Pressure 107/48 107/48 107/48 O2 Sat by Pulse 100 100 100 Oximetry 04/11/18 04/11/18 04/11/18 04:00 04:11 04:21 Pulse Rate 126 H 109 H 103 H Pulse Rate [ 88 From Monitor] Respiratory 19 23 21 Rate Blood Pressure 118/53 118/53 125/56 O2 Sat by Pulse 100 100 100 Oximetry 04/11/18 04/11/18 04/11/18 04:30 04:40 04:50 Pulse Rate 110 H 117 H 105 H Pulse Rate [ From Monitor] Respiratory 23 19 20 Rate Blood Pressure 110/57 110/57 O2 Sat by Pulse 100 100 100 Oximetry 04/11/18 04/11/18 04/11/18 05:01 05:11 05:21 Pulse Rate 140 H 127 H 106 H Pulse Rate [ From Monitor] Respiratory 25 H 23 21 Rate Blood Pressure 110/54 110/54 102/62 O2 Sat by Pulse 100 100 100 Oximetry 04/11/18 04/11/18 04/11/18 05:30 05:41 05:51 Pulse Rate 101 H 103 H 96 H Pulse Rate [ From Monitor] Respiratory 19 19 20 Rate Blood Pressure 100/53 100/53 96/56 O2 Sat by Pulse 72 L 100 100 Oximetry 04/11/18 04/11/18 04/11/18 06:00 06:11 06:21 Pulse Rate 105 H 117 H Pulse Rate [ From Monitor] Respiratory 19 20 Rate Blood Pressure 108/34 108/34 103/62 O2 Sat by Pulse 99 94 99 Oximetry 04/11/18 04/11/18 04/11/18 06:30 06:41 06:51 Pulse Rate 101 H Pulse Rate [ From Monitor] Respiratory 41 H Rate Blood Pressure 89/50 89/50 108/52 O2 Sat by Pulse 100 100 100 Oximetry 04/11/18 04/11/18 04/11/18 07:00 07:11 07:21 Pulse Rate Pulse Rate [ From Monitor] Respiratory Rate Blood Pressure 110/58 89/50 100/64 O2 Sat by Pulse 100 100 100 Oximetry 04/11/18 04/11/18 04/11/18 07:30 07:41 07:51 Pulse Rate Pulse Rate [ From Monitor] Respiratory Rate Blood Pressure 120/60 120/60 112/52 O2 Sat by Pulse 100 100 100 Oximetry 04/11/18 04/11/18 04/11/18 08:00 08:11 08:15 Pulse Rate 115 H Pulse Rate [ 106 H From Monitor] Respiratory Rate Blood Pressure 103/59 103/59 O2 Sat by Pulse 100 100 97 Oximetry 04/11/18 04/11/18 04/11/18 08:21 08:31 08:41 Pulse Rate 108 H Pulse Rate [ From Monitor] Respiratory 26 H Rate Blood Pressure 104/64 104/64 104/64 O2 Sat by Pulse 100 98 100 Oximetry 04/11/18 04/11/18 04/11/18 08:51 09:00 09:11 Pulse Rate 107 H 117 H 110 H Pulse Rate [ From Monitor] Respiratory 25 H 25 H 12 Rate Blood Pressure 100/63 116/58 116/58 O2 Sat by Pulse 100 100 100 Oximetry 04/11/18 09:21 Pulse Rate 108 H Pulse Rate [ From Monitor] Respiratory 22 Rate Blood Pressure 101/56 O2 Sat by Pulse 100 Oximetry Constitutional: lethargic, appears uncomfortable, other (elderly looking AF, normocephalic and atraumatic without overt respiratory distress) Eyes: non-icteric ENT: oropharynx dry, other Neck: supple, no lymphadenopathy, no JVD Effort: mildly labored Ascultation: Bilateral: clear, diminished breath sounds Percussion: Bilateral: not dull Cardiovascular: regular rate and rhythm, other (Tachycardia, S1,S2, no murmurs, gallops or rubs) Gastrointestinal: normoactive bowel sounds, soft, non-tender, non-distended, other (no guarding, PEG in place, Mahajan cahter with tea colored urine in place) Integumentary: other (loss of skin tugor) Extremities: no cyanosis, no edema, pink and warm, pulses normal, no ischemia or petechiae Neurologic: pupils equal and round, unable to assess (otherwise) Psychiatric: other (unable to assess) CBC and BMP: 04/14/18 05:30 04/14/18 05:30 ABG, PT/INR, D-dimer: ABG POC ABG pH 7.466 (7.35-7.45) H 04/09/18 12:42 POC ABG pCO2 24.6 (35-45) L 04/09/18 12:42 POC ABG pO2 120 (80-105) H 04/09/18 12:42 POC ABG HCO3 17.7 04/09/18 12:42 POC ABG Total CO2 18 04/09/18 12:42 POC ABG O2 Sat 99 04/09/18 12:42 Abnormal lab findings: Abnormal Labs 04/08/18 04/08/18 04/08/18 02:50 02:50 02:50 WBC 16.5 H RBC 3.37 L Hgb 9.7 L Hct RDW 17.6 H Lymph % (Auto) 11.0 L Lymph # [place] # 1.0 H Seg Neutrophils % 82.7 H Seg Neuts % (Manual) Lymphocytes % (Manual) Seg Neutrophils # 13.7 H Seg Neutrophils # Man Lymphocytes # (Manual) POC ABG pH POC ABG pCO2 POC ABG pO2 Sodium 152 H Chloride 108.9 H Carbon Dioxide BUN 102 H Creatinine 1.7 H Glucose 291 H POC Glucose Lactic Acid 2.70 H* Calcium 7.8 L Phosphorus Magnesium AST 74 H ALT 96 H Total Creatine Kinase CK-MB (CK-2) Troponin T 0.068 H Total Protein 6.2 L Albumin 2.7 L Triglycerides 247 H HDL Cholesterol 36 L PTH Intact Urine WBC (Auto) Urine Creatinine Urine Total Protein Crossmatch 04/08/18 04/08/18 04/08/18 02:50 02:57 03:44 WBC RBC Hgb Hct RDW Lymph % (Auto) Lymph # [place] # Seg Neutrophils % Seg Neuts % (Manual) Lymphocytes % (Manual) Seg Neutrophils # Seg Neutrophils # Man Lymphocytes # (Manual) POC ABG pH POC ABG pCO2 POC ABG pO2 Sodium Chloride Carbon Dioxide BUN Creatinine Glucose POC Glucose 289 H Lactic Acid Calcium Phosphorus Magnesium AST ALT Total Creatine Kinase CK-MB (CK-2) Troponin T Total Protein Albumin Triglycerides HDL Cholesterol PTH Intact Urine WBC (Auto) > 182.0 H Urine Creatinine Urine Total Protein Crossmatch See Detail 04/08/18 04/08/18 04/08/18 04:30 05:59 05:59 WBC RBC Hgb Hct RDW Lymph % (Auto) Lymph # [place] # Seg Neutrophils % Seg Neuts % (Manual) Lymphocytes % (Manual) Seg Neutrophils # Seg Neutrophils # Man Lymphocytes # (Manual) POC ABG pH POC ABG pCO2 POC ABG pO2 Sodium Chloride Carbon Dioxide BUN Creatinine Glucose POC Glucose Lactic Acid 3.50 H* 2.70 H* Calcium Phosphorus Magnesium AST ALT Total Creatine Kinase 1203 H CK-MB (CK-2) 4.7 H Troponin T 0.042 H D Total Protein Albumin Triglycerides HDL Cholesterol PTH Intact Urine WBC (Auto) Urine Creatinine Urine Total Protein Crossmatch 04/08/18 04/08/18 04/08/18 06:04 07:06 10:53 WBC RBC Hgb Hct RDW Lymph % (Auto) Lymph # [place] # Seg Neutrophils % Seg Neuts % (Manual) Lymphocytes % (Manual) Seg Neutrophils # Seg Neutrophils # Man Lymphocytes # (Manual) POC ABG pH POC ABG pCO2 POC ABG pO2 Sodium Chloride Carbon Dioxide BUN Creatinine Glucose POC Glucose 323 H Lactic Acid 2.40 H* 2.30 H* Calcium Phosphorus Magnesium AST ALT Total Creatine Kinase CK-MB (CK-2) Troponin T Total Protein Albumin Triglycerides HDL Cholesterol PTH Intact Urine WBC (Auto) Urine Creatinine Urine Total Protein Crossmatch 04/08/18 04/08/18 04/08/18 12:07 12:46 13:17 WBC RBC Hgb Hct RDW Lymph % (Auto) Lymph # [place] # Seg Neutrophils % Seg Neuts % (Manual) Lymphocytes % (Manual) Seg Neutrophils # Seg Neutrophils # Man Lymphocytes # (Manual) POC ABG pH POC ABG pCO2 POC ABG pO2 Sodium Chloride Carbon Dioxide BUN Creatinine Glucose POC Glucose 318 H 335 H Lactic Acid Calcium Phosphorus Magnesium AST ALT Total Creatine Kinase 1194 H CK-MB (CK-2) 5.1 H Troponin T Total Protein Albumin Triglycerides HDL Cholesterol PTH Intact Urine WBC (Auto) Urine Creatinine Urine Total Protein Crossmatch 04/08/18 04/08/18 04/08/18 13:19 14:32 15:18 WBC RBC Hgb Hct RDW Lymph % (Auto) Lymph # [place] # Seg Neutrophils % Seg Neuts % (Manual) Lymphocytes % (Manual) Seg Neutrophils # Seg Neutrophils # Man Lymphocytes # (Manual) POC ABG pH POC ABG pCO2 POC ABG pO2 Sodium Chloride Carbon Dioxide BUN Creatinine Glucose POC Glucose 291 H Lactic Acid 2.60 H* Calcium Phosphorus Magnesium AST ALT Total Creatine Kinase CK-MB (CK-2) Troponin T Total Protein Albumin Triglycerides HDL Cholesterol PTH Intact Urine WBC (Auto) Urine Creatinine 24.0 H Urine Total Protein 57 H Crossmatch 04/08/18 04/08/18 04/08/18 15:40 16:54 17:52 WBC RBC Hgb Hct RDW Lymph % (Auto) Lymph # [place] # Seg Neutrophils % Seg Neuts % (Manual) Lymphocytes % (Manual) Seg Neutrophils # Seg Neutrophils # Man Lymphocytes # (Manual) POC ABG pH POC ABG pCO2 POC ABG pO2 Sodium Chloride Carbon Dioxide BUN Creatinine Glucose POC Glucose 280 H 226 H Lactic Acid 3.10 H* Calcium Phosphorus Magnesium AST ALT Total Creatine Kinase CK-MB (CK-2) Troponin T Total Protein Albumin Triglycerides HDL Cholesterol PTH Intact Urine WBC (Auto) Urine Creatinine Urine Total Protein Crossmatch 04/08/18 04/08/18 04/08/18 18:35 19:18 19:57 WBC RBC Hgb Hct RDW Lymph % (Auto) Lymph # [place] # Seg Neutrophils % Seg Neuts % (Manual) Lymphocytes % (Manual) Seg Neutrophils # Seg Neutrophils # Man Lymphocytes # (Manual) POC ABG pH POC ABG pCO2 POC ABG pO2 Sodium Chloride Carbon Dioxide BUN Creatinine Glucose POC Glucose 247 H Lactic Acid 2.60 H* 2.60 H* Calcium Phosphorus Magnesium AST ALT Total Creatine Kinase CK-MB (CK-2) Troponin T Total Protein Albumin Triglycerides HDL Cholesterol PTH Intact Urine WBC (Auto) Urine Creatinine Urine Total Protein Crossmatch 04/08/18 04/08/18 04/09/18 21:41 22:56 00:27 WBC 14.5 H RBC 2.78 L Hgb 8.1 L Hct 26.4 L RDW 16.7 H Lymph % (Auto) Lymph # [place] # Seg Neutrophils % Seg Neuts % (Manual) 89.0 H Lymphocytes % (Manual) 5.0 L Seg Neutrophils # Seg Neutrophils # Man 12.9 H Lymphocytes # (Manual) 0.7 L POC ABG pH POC ABG pCO2 POC ABG pO2 Sodium Chloride Carbon Dioxide BUN Creatinine Glucose POC Glucose 164 H Lactic Acid 3.80 H* Calcium Phosphorus Magnesium AST ALT Total Creatine Kinase CK-MB (CK-2) Troponin T Total Protein Albumin Triglycerides HDL Cholesterol PTH Intact Urine WBC (Auto) Urine Creatinine Urine Total Protein Crossmatch 04/09/18 04/09/18 04/09/18 00:27 02:54 05:51 WBC RBC Hgb Hct RDW Lymph % (Auto) Lymph # [place] # Seg Neutrophils % Seg Neuts % (Manual) Lymphocytes % (Manual) Seg Neutrophils # Seg Neutrophils # Man Lymphocytes # (Manual) POC ABG pH POC ABG pCO2 POC ABG pO2 Sodium 149 H Chloride 118.4 H Carbon Dioxide BUN 38 H Creatinine 0.6 L D Glucose 153 H POC Glucose 151 H 203 H Lactic Acid Calcium 6.6 L D Phosphorus Magnesium AST ALT Total Creatine Kinase CK-MB (CK-2) Troponin T Total Protein Albumin Triglycerides HDL Cholesterol PTH Intact Urine WBC (Auto) Urine Creatinine Urine Total Protein Crossmatch 04/09/18 04/09/18 04/09/18 06:00 06:00 10:18 WBC 13.2 H RBC 2.84 L Hgb 8.2 L Hct 27.1 L RDW 17.2 H Lymph % (Auto) 8.5 L Lymph # 1.1 L [place] # Seg Neutrophils % 87.2 H Seg Neuts % (Manual) Lymphocytes % (Manual) Seg Neutrophils # 11.5 H Seg Neutrophils # Man Lymphocytes # (Manual) POC ABG pH POC ABG pCO2 POC ABG pO2 Sodium 152 H Chloride 119.6 H Carbon Dioxide 21 L BUN 33 H Creatinine Glucose 187 H POC Glucose 217 H Lactic Acid Calcium 6.8 L Phosphorus Magnesium AST ALT Total Creatine Kinase CK-MB (CK-2) Troponin T Total Protein Albumin Triglycerides HDL Cholesterol PTH Intact Urine WBC (Auto) Urine Creatinine Urine Total Protein Crossmatch 04/09/18 04/09/18 04/09/18 12:42 16:50 17:40 WBC RBC Hgb Hct RDW Lymph % (Auto) Lymph # [place] # Seg Neutrophils % Seg Neuts % (Manual) Lymphocytes % (Manual) Seg Neutrophils # Seg Neutrophils # Man Lymphocytes # (Manual) POC ABG pH 7.466 H POC ABG pCO2 24.6 L POC ABG pO2 120 H Sodium Chloride Carbon Dioxide BUN Creatinine Glucose POC Glucose 244 H Lactic Acid Calcium Phosphorus Magnesium 2.60 H AST ALT Total Creatine Kinase CK-MB (CK-2) Troponin T Total Protein Albumin Triglycerides HDL Cholesterol PTH Intact Urine WBC (Auto) Urine Creatinine Urine Total Protein Crossmatch 04/09/18 04/10/18 04/10/18 23:55 00:33 05:00 WBC RBC 2.47 L Hgb 7.3 L Hct 23.6 L RDW 16.9 H Lymph % (Auto) Lymph # 1.1 L [place] # Seg Neutrophils % 82.0 H Seg Neuts % (Manual) Lymphocytes % (Manual) Seg Neutrophils # Seg Neutrophils # Man Lymphocytes # (Manual) POC ABG pH POC ABG pCO2 POC ABG pO2 Sodium Chloride Carbon Dioxide BUN Creatinine Glucose POC Glucose 233 H 176 H Lactic Acid Calcium Phosphorus Magnesium AST ALT Total Creatine Kinase CK-MB (CK-2) Troponin T Total Protein Albumin Triglycerides HDL Cholesterol PTH Intact Urine WBC (Auto) Urine Creatinine Urine Total Protein Crossmatch 04/10/18 04/10/18 04/10/18 05:00 05:19 11:42 WBC RBC Hgb Hct RDW Lymph % (Auto) Lymph # [place] # Seg Neutrophils % Seg Neuts % (Manual) Lymphocytes % (Manual) Seg Neutrophils # Seg Neutrophils # Man Lymphocytes # (Manual) POC ABG pH POC ABG pCO2 POC ABG pO2 Sodium 150 H Chloride 120.0 H Carbon Dioxide 20 L BUN 21 H Creatinine 0.6 L Glucose 189 H POC Glucose 197 H 197 H Lactic Acid Calcium 6.5 L Phosphorus 2.10 L D Magnesium AST ALT Total Creatine Kinase CK-MB (CK-2) Troponin T Total Protein Albumin Triglycerides HDL Cholesterol PTH Intact Urine WBC (Auto) Urine Creatinine Urine Total Protein Crossmatch 04/10/18 04/10/18 04/11/18 17:32 20:38 00:24 WBC RBC Hgb Hct RDW Lymph % (Auto) Lymph # [place] # Seg Neutrophils % Seg Neuts % (Manual) Lymphocytes % (Manual) Seg Neutrophils # Seg Neutrophils # Man Lymphocytes # (Manual) POC ABG pH POC ABG pCO2 POC ABG pO2 Sodium Chloride Carbon Dioxide BUN Creatinine Glucose POC Glucose 114 H 107 H 110 H Lactic Acid Calcium Phosphorus Magnesium AST ALT Total Creatine Kinase CK-MB (CK-2) Troponin T Total Protein Albumin Triglycerides HDL Cholesterol PTH Intact Urine WBC (Auto) Urine Creatinine Urine Total Protein Crossmatch 04/11/18 04/11/18 04/11/18 04:01 05:19 05:19 WBC RBC 2.36 L Hgb 6.9 L Hct 22.5 L RDW 16.9 H Lymph % (Auto) 11.6 L Lymph # 1.0 L [place] # Seg Neutrophils % 84.4 H Seg Neuts % (Manual) Lymphocytes % (Manual) Seg Neutrophils # Seg Neutrophils # Man Lymphocytes # (Manual) POC ABG pH POC ABG pCO2 POC ABG pO2 Sodium Chloride 111.3 H Carbon Dioxide 15 L BUN Creatinine 0.6 L Glucose 137 H POC Glucose 137 H Lactic Acid Calcium 6.8 L Phosphorus 2.40 L Magnesium AST ALT Total Creatine Kinase CK-MB (CK-2) Troponin T Total Protein Albumin Triglycerides HDL Cholesterol PTH Intact Urine WBC (Auto) Urine Creatinine Urine Total Protein Crossmatch 04/11/18 04/11/18 04/11/18 05:19 05:19 08:21 WBC RBC Hgb Hct RDW Lymph % (Auto) Lymph # [place] # Seg Neutrophils % Seg Neuts % (Manual) Lymphocytes % (Manual) Seg Neutrophils # Seg Neutrophils # Man Lymphocytes # (Manual) POC ABG pH POC ABG pCO2 POC ABG pO2 Sodium Chloride Carbon Dioxide BUN Creatinine Glucose POC Glucose 159 H Lactic Acid Calcium Phosphorus Magnesium AST ALT Total Creatine Kinase CK-MB (CK-2) Troponin T Total Protein Albumin Triglycerides HDL Cholesterol PTH Intact 169.6 H Urine WBC (Auto) Urine Creatinine Urine Total Protein Crossmatch See Detail Allied health notes reviewed: nursing
[2018-04-11] MEDS ORDERED: NACL 0.9% 500 ML 500 ML IV NR (10:00)
--- NOTE | 2018-04-11 11:07 | Progress Note ---
Assessment and Plan Cultures: 04/08/2018 blood cultures: 1 out of 4 bottles positive for CoNS 04/08/2018 urine culture: no growth A/P: 87-year-old female with prior CVA, right-sided hemiplegia, aphasia, CHF, diabetes mellitus, vascular dementia who is a [facility] resident, admitted with: #1 Septic shock: Source is likely urine.UA with significant pyuria. Chest x-ray not concerning for an obvious pneumonia. #2 Urinary tract infection: no growth on urine culture, continue Cefepime 1 gm q12 hrs #3 Acute encephalopathy: Likely metabolic and septic in etiology. #4 Acute kidney injury: resolved. #5 CoNS bacteremia: One out of 4 bottles positive for CoNS, likely contaminant. No further work up needed. Recs: continue IV Cefepime 1 gm q12 hrs awaiting PICC/midline before removal of femoral CVL Will follow. MD [facility] C: [phone] O: [phone] F: [phone] Subjective Date of service: 04/11/18 Principal diagnosis: Severe sepsis with shock; UTI; ITZEL; Hypernatremia Interval history: No fever. Non verbal. Objective - Exam Narrative Exam: Physical Exam: Constitutional: Alert, non verbal, no distress Head, Ears, Nose: Normocephalic, atraumatic. External ears, nose normal Eyes: Conjunctivae/corneas clear. No icterus. No ptosis. Neck: Supple, no meningeal signs Cardiovascular: S1, S2 normal. Respiratory: Good air entry, clear to auscultation bilaterally GI: Soft, non-tender; bowel sounds normal. No peritoneal signs Musculoskeletal: No pedal edema, no cyanosis. Right femoral CVL + Skin: No rash or abscess Hem/Lymphatic: No palpable cervical or supraclavicular nodes. No lymphangitis Psych: no agitation Neurological: awake, non verbal. - Constitutional Vitals: Vital Signs Temp Pulse Resp BP Pulse Ox 99.4 F 108 H 22 101/56 100 04/10/18 04:00 04/11/18 09:21 04/11/18 09:21 04/11/18 09:21 04/11/18 09:21 - Labs CBC & Chem 7: 04/11/18 05:19 04/11/18 05:19 Labs: Abnormal lab results 04/08/18 04/10/18 04/10/18 Range/Units 03:44 11:42 17:32 RBC (3.65-5.03) M/mm3 Hgb (10.1-14.3) gm/dl Hct (30.3-42.9) % RDW (13.2-15.2) % Lymph % (Auto) (13.4-35.0) % Lymph # (1.2-5.4) K/mm3 Seg Neutrophils % (40.0-70.0) % Chloride (98-107) mmol/L Carbon Dioxide (22-30) mmol/L Creatinine (0.7-1.2) mg/dL Glucose (65-100) mg/dL POC Glucose 197 H 114 H (70-105) Calcium (8.4-10.2) mg/dL Phosphorus (2.5-4.5) mg/dL PTH Intact (15-65) pg/mL Crossmatch See Detail 04/10/18 04/11/18 04/11/18 Range/Units 20:38 00:24 04:01 RBC (3.65-5.03) M/mm3 Hgb (10.1-14.3) gm/dl Hct (30.3-42.9) % RDW (13.2-15.2) % Lymph % (Auto) (13.4-35.0) % Lymph # (1.2-5.4) K/mm3 Seg Neutrophils % (40.0-70.0) % Chloride (98-107) mmol/L Carbon Dioxide (22-30) mmol/L Creatinine (0.7-1.2) mg/dL Glucose (65-100) mg/dL POC Glucose 107 H 110 H 137 H (70-105) Calcium (8.4-10.2) mg/dL Phosphorus (2.5-4.5) mg/dL PTH Intact (15-65) pg/mL Crossmatch 04/11/18 04/11/18 04/11/18 Range/Units 05:19 05:19 05:19 RBC 2.36 L (3.65-5.03) M/mm3 Hgb 6.9 L (10.1-14.3) gm/dl Hct 22.5 L (30.3-42.9) % RDW 16.9 H (13.2-15.2) % Lymph % (Auto) 11.6 L (13.4-35.0) % Lymph # 1.0 L (1.2-5.4) K/mm3 Seg Neutrophils % 84.4 H (40.0-70.0) % Chloride 111.3 H (98-107) mmol/L Carbon Dioxide 15 L (22-30) mmol/L Creatinine 0.6 L (0.7-1.2) mg/dL Glucose 137 H (65-100) mg/dL POC Glucose (70-105) Calcium 6.8 L (8.4-10.2) mg/dL Phosphorus 2.40 L (2.5-4.5) mg/dL PTH Intact 169.6 H (15-65) pg/mL Crossmatch 04/11/18 04/11/18 Range/Units 05:19 08:21 RBC (3.65-5.03) M/mm3 Hgb (10.1-14.3) gm/dl Hct (30.3-42.9) % RDW (13.2-15.2) % Lymph % (Auto) (13.4-35.0) % Lymph # (1.2-5.4) K/mm3 Seg Neutrophils % (40.0-70.0) % Chloride (98-107) mmol/L Carbon Dioxide (22-30) mmol/L Creatinine (0.7-1.2) mg/dL Glucose (65-100) mg/dL POC Glucose 159 H (70-105) Calcium (8.4-10.2) mg/dL Phosphorus (2.5-4.5) mg/dL PTH Intact (15-65) pg/mL Crossmatch See Detail
[2018-04-11] MEDS ORDERED: SIMPLE SYRUP FEEDTUBE PRN ×2 (11:30→12:00)
--- NOTE | 2018-04-11 11:40 | Gastroenterology Consultation ---
Addendum entered and electronically signed by EL GUPTA MD 04/11/18 18:41: Patient seen and examined. Agree with A/P and recommendations as stated. 87 yo female from [facility] s/p CVA, s/p PEG, afib, dementia, DM, CHF admitted for septic shock and UTI. Consulted for melena and drop in H/H. anticoagulation held. - will plan for EGD tomorrow. Original Note: History of Present Illness - Reason for Consult Consult date: 04/11/18 melena Requesting physician: JONATHAN ALVAREZ - History of Present Illness Patient is a 87 y/o female [facility] resident with PMH of CVA (residual right sided hemiplegia and aphasia; s/p PEG), CHF, DM, dementia, anemia, HTN, and Afib (Eliquis currently on hold) who was admitted with septic shock, UTI, and ITZEL. GI has been consulted for a drop in H/H and melena. Currently patient is in ICU, now off pressors. This morning family was at bedside (also spoke with son over via phone) who assisted with history, along with chart review. Per nursing patient had a dark melanotic BM yesterday. No hematemesis or hematochezia. No evidence of abd pain or N/V. No past hx of GI bleeding, PUD, or liver disease per family report. No prior endoscopic evaluation with EGD/colonoscopy. No known immediate FHx of GI cancers. Upon exam this am, stool in diaper was dark brown and there was no bloody residual from PEG with flushing. Past History Past Medical History: atrial fib, diabetes, hypertension, hyperlipidemia, stroke Past Surgical History: Other (unknown) Social history: other ([facility] resident). denies: alcohol abuse Medications and Allergies Allergies Allergy/AdvReac Type Severity Reaction Status Date / Time No Known Allergies Allergy Verified 04/08/18 02:43 Home Medications Medication Instructions Recorded Confirmed Last Taken Type Docusate Sodium [Colace CAP] 100 mg PO BID PRN 06/18/16 04/08/18 04/07/18 History Apixaban [Eliquis] 2.5 mg PO Q12HR #60 tablet 08/12/16 04/08/18 04/07/18 Rx Levothyroxine [Synthroid] 75 mcg PO DAILY@0600 #30 tablet 08/12/16 04/08/18 04/07/18 Rx Simvastatin [Zocor TAB] 40 mg PO QHS #30 tablet 08/12/16 04/08/18 04/07/18 Rx Acetaminophen [Tylenol] 325 mg PO PRN 04/08/18 04/08/18 04/07/18 History Digoxin [Lanoxin] 0.125 mg PO DAILY 04/08/18 04/08/18 04/07/18 History Insulin Detemir [Levemir Flextouch] 100 unit SQ DAILY 04/08/18 04/08/18 04/07/18 History Lisinopril [Prinivil] 5 mg PO DAILY 04/08/18 04/08/18 04/07/18 History Metoclopramide HCl 5 mg PO Q6HR 04/08/18 04/08/18 04/07/18 History Metoprolol Tartrate 25 mg PO TID 04/08/18 04/08/18 04/07/18 History Potassium Chloride [Klor-Con] 20 meq PO DAILY 04/08/18 04/08/18 04/07/18 History Simvastatin 40 mg PO DAILY 04/08/18 04/08/18 04/07/18 History Torsemide [Demadex] 20 mg PO DAILY 04/08/18 04/08/18 04/07/18 History Active Meds: Active Medications Acetaminophen (Tylenol) 650 mg FEEDTUBE Q6H PRN PRN Reason: Pain, Mild (1-3) Last Admin: 04/08/18 03:00 Dose: 650 mg Documented by: Lipase/Protease/Amylase (Telma Dle Real 10,500 Unit) 1 each FEEDTUBE PRN PRN PRN Reason: For Clogged Feeding Tube Docusate Sodium (Colace) 100 mg PO BID PRN PRN Reason: Constipation Donepezil HCl (Aricept) 5 mg PO QDAY [facility] Last Admin: 04/11/18 09:47 Dose: 5 mg Documented by: Famotidine (Pepcid) 20 mg PO QAM [facility] Last Admin: 04/11/18 09:47 Dose: 20 mg Documented by: Ferrous Sulfate (Feosol) 325 mg PO QDAY [facility] Last Admin: 04/11/18 09:47 Dose: 325 mg Documented by: Dextrose (D5w) 1,000 mls @ 50 mls/hr IV DIRECT [facility]UNIOR Last Admin: 04/11/18 05:57 Dose: 50 mls/hr Documented by: Norepinephrine (Levophed Drip 4 Mg/Ns 250 Ml) 4 mg in 250 mls @ 7.5 mls/hr IV TITR JUNIOR; Protocol Last Titration: 04/09/18 18:35 Dose: 0 mcg/min, 0 mls/hr Documented by: Cefepime HCl (Maxipime/Ns 1 Gm/100 Ml) 1 gm in 100 mls @ 200 mls/hr IV Q12HR JUNIOR; Protocol Last Admin: 04/11/18 09:47 Dose: 200 mls/hr Documented by: Sodium Chloride (Nacl 0.9% 1000 Ml) 1,000 mls @ 100 mls/hr IV DIRECT JUNIOR Stop: 04/11/18 23:59 Last Admin: 04/11/18 06:01 Dose: 100 mls/hr Documented by: Pantoprazole Sodium 80 mg/ (Sodium Chloride) 100 mls @ 10 mls/hr IV DIRECT JUNIOR Sodium Chloride (Nacl 0.9% 500 Ml) 500 mls @ 0 mls/hr IV ONCE NR Stop: 04/11/18 12:00 Last Admin: 04/11/18 09:56 Dose: 999 mls/hr Documented by: Levothyroxine Sodium (Synthroid) 75 mcg PO DAILY@0600 [facility] Last Admin: 04/11/18 05:57 Dose: 75 mcg Documented by: Midodrine (Proamatine) 5 mg PO TID@0800,1200,1600 [facility] Last Admin: 04/11/18 09:22 Dose: 5 mg Documented by: Ondansetron HCl (Zofran) 4 mg IV Q8H PRN PRN Reason: Nausea And Vomiting Pravastatin Sodium (Pravachol) 80 mg PO QHS [facility] Last Admin: 04/10/18 21:53 Dose: 80 mg Documented by: Simple Syrup (Simple Syrup) 15 ml FEEDTUBE PRN PRN PRN Reason: Hypoglycemia Simple Syrup (Simple Syrup) 30 ml FEEDTUBE PRN PRN PRN Reason: Hypoglycemia Sodium Bicarbonate (Sodium Bicarbonate) 325 mg FEEDTUBE PRN PRN PRN Reason: For Clogged Feeding Tube medications reviewed/updated as required Review of Systems - Review of Systems ROS unobtainable: due to mental status Exam - Constitutional Vital Signs: Temp Pulse Resp BP Pulse Ox 99.4 F 108 H 22 101/56 100 04/10/18 04:00 04/11/18 09:21 04/11/18 09:21 04/11/18 09:21 04/11/18 09:21 General appearance: no acute distress, other (in ICU, nonverbal) - Respiratory Respiratory: bilateral: diminished - Cardiovascular Rhythm: other (irregular) - Gastrointestinal General gastrointestinal: Present: soft, non-distended, normal bowel sounds, other (+PEG (non-bloody residual)) - Labs CBC & Chem 7: 04/11/18 05:19 04/11/18 05:19 Lab Results: Laboratory Results - last 24 hr 04/08/18 04/10/18 04/10/18 03:44 11:42 17:32 WBC RBC Hgb Hct MCV MCH MCHC RDW Plt Count Lymph % (Auto) [place] % (Auto) Eos % (Auto) Baso % (Auto) Lymph # [place] # Eos # Baso # Seg Neutrophils % Seg Neutrophils # Sodium Potassium Chloride Carbon Dioxide Anion Gap BUN Creatinine Estimated GFR BUN/Creatinine Ratio Glucose POC Glucose 197 H 114 H Calcium Phosphorus PTH Intact Blood Type O POSITIVE Antibody Screen Negative Crossmatch See Detail 04/10/18 04/11/18 04/11/18 20:38 00:24 04:01 WBC RBC Hgb Hct MCV MCH MCHC RDW Plt Count Lymph % (Auto) [place] % (Auto) Eos % (Auto) Baso % (Auto) Lymph # [place] # Eos # Baso # Seg Neutrophils % Seg Neutrophils # Sodium Potassium Chloride Carbon Dioxide Anion Gap BUN Creatinine Estimated GFR BUN/Creatinine Ratio Glucose POC Glucose 107 H 110 H 137 H Calcium Phosphorus PTH Intact Blood Type Antibody Screen Crossmatch 04/11/18 04/11/18 04/11/18 05:19 05:19 05:19 WBC 8.6 RBC 2.36 L Hgb 6.9 L Hct 22.5 L MCV 95 MCH 29 MCHC 31 RDW 16.9 H Plt Count 171 Lymph % (Auto) 11.6 L [place] % (Auto) 3.5 Eos % (Auto) 0.4 Baso % (Auto) 0.1 Lymph # 1.0 L [place] # 0.3 Eos # 0.0 Baso # 0.0 Seg Neutrophils % 84.4 H Seg Neutrophils # 7.3 Sodium 140 D Potassium 4.3 Chloride 111.3 H Carbon Dioxide 15 L Anion Gap 18 BUN 14 Creatinine 0.6 L Estimated GFR > 60 BUN/Creatinine Ratio 23 Glucose 137 H POC Glucose Calcium 6.8 L Phosphorus 2.40 L PTH Intact 169.6 H Blood Type Antibody Screen Crossmatch 04/11/18 04/11/18 05:19 08:21 WBC RBC Hgb Hct MCV MCH MCHC RDW Plt Count Lymph % (Auto) [place] % (Auto) Eos % (Auto) Baso % (Auto) Lymph # [place] # Eos # Baso # Seg Neutrophils % Seg Neutrophils # Sodium Potassium Chloride Carbon Dioxide Anion Gap BUN Creatinine Estimated GFR BUN/Creatinine Ratio Glucose POC Glucose 159 H Calcium Phosphorus PTH Intact Blood Type O POSITIVE Antibody Screen Negative Crossmatch See Detail Assessment and Plan 1.GI bleed/melena 2.anemia -H/H 6.9/22.5- transfusion PRBCs pending for today -continue to monitor H/H and transfuse as needed -hold blood thinning medications (eliquis on hold) -melenotic BM yesterday per nursing- no active signs of bleeding this am (dark brown stool in diaper; PEG residual clear/non-bloody) -etiology unclear- possible ulcer vs other -will schedule for EGD tomorrow-cleared by cardiology to proceed with procedure (guillermo jain son- [phone]) -continue PPI and supportive care -electrolyte management per primary team -will follow 3.sepsis/UTI 4.ITZEL/dyhydration 5.paroxysmal Afib with CVR 6.NSVT 7.H/o CVA 8.HTN 9.DM 10.dementia
[2018-04-11] MEDS ORDERED: PANCREAZE DR 10,500 UNIT FEEDTUBE PRN (12:00)
[2018-04-11] MEDS ORDERED: SODIUM BICARBONATE FEEDTUBE PRN (12:00)
--- NOTE | 2018-04-11 12:28 | Progress Note ---
Assessment and Plan septic shock secondary to urosepsis acute renal failure secondary to ischemic ATN hypernatremia secondary to low oral intake Anemia in chronic disease - ITZEL resolved - SPEP is pending for proteinuria - will d/c D5W, can also d/c NS - will start bicitra 15 cc TID for acidosis - renally dose meds - strict I&O - daily weight Thank you for allowing to participate in Ms Cole's care Mike Herrera MD [phone] Subjective Date of service: 04/11/18 Principal diagnosis: Severe sepsis with shock; UTI; ITZEL; Hypernatremia Interval history: weak, answers simple questions Objective - Vital Signs Vital signs: Vital Signs - 12hr 04/11/18 04/11/18 04/11/18 00:30 00:41 00:51 Pulse Rate 106 H 104 H Pulse Rate [ From Monitor] Respiratory 21 24 Rate Blood Pressure 108/43 108/43 106/58 O2 Sat by Pulse 100 100 Oximetry 04/11/18 04/11/18 04/11/18 01:00 01:11 01:21 Pulse Rate 106 H 93 H 102 H Pulse Rate [ From Monitor] Respiratory 22 22 21 Rate Blood Pressure 104/53 104/53 107/50 O2 Sat by Pulse 100 100 100 Oximetry 04/11/18 04/11/18 04/11/18 01:30 01:41 01:51 Pulse Rate 101 H 96 H 94 H Pulse Rate [ From Monitor] Respiratory 22 22 20 Rate Blood Pressure 107/49 107/49 107/54 O2 Sat by Pulse 100 100 100 Oximetry 04/11/18 04/11/18 04/11/18 02:00 02:11 02:21 Pulse Rate 100 H 94 H 99 H Pulse Rate [ From Monitor] Respiratory 19 21 20 Rate Blood Pressure 108/62 108/62 107/49 O2 Sat by Pulse 100 100 100 Oximetry 04/11/18 04/11/18 04/11/18 02:30 02:41 02:51 Pulse Rate 90 98 H 107 H Pulse Rate [ From Monitor] Respiratory 18 20 20 Rate Blood Pressure 101/35 101/35 108/41 O2 Sat by Pulse 100 100 100 Oximetry 04/11/18 04/11/18 04/11/18 03:00 03:11 03:21 Pulse Rate 112 H 113 H 94 H Pulse Rate [ From Monitor] Respiratory 21 18 19 Rate Blood Pressure 118/37 118/37 118/33 O2 Sat by Pulse 100 100 100 Oximetry 04/11/18 04/11/18 04/11/18 03:30 03:41 03:51 Pulse Rate 99 H 105 H 112 H Pulse Rate [ From Monitor] Respiratory 21 17 21 Rate Blood Pressure 107/48 107/48 107/48 O2 Sat by Pulse 100 100 100 Oximetry 04/11/18 04/11/18 04/11/18 04:00 04:11 04:21 Pulse Rate 126 H 109 H 103 H Pulse Rate [ 88 From Monitor] Respiratory 19 23 21 Rate Blood Pressure 118/53 118/53 125/56 O2 Sat by Pulse 100 100 100 Oximetry 04/11/18 04/11/18 04/11/18 04:30 04:40 04:50 Pulse Rate 110 H 117 H 105 H Pulse Rate [ From Monitor] Respiratory 23 19 20 Rate Blood Pressure 110/57 110/57 O2 Sat by Pulse 100 100 100 Oximetry 04/11/18 04/11/18 04/11/18 05:01 05:11 05:21 Pulse Rate 140 H 127 H 106 H Pulse Rate [ From Monitor] Respiratory 25 H 23 21 Rate Blood Pressure 110/54 110/54 102/62 O2 Sat by Pulse 100 100 100 Oximetry 04/11/18 04/11/18 04/11/18 05:30 05:41 05:51 Pulse Rate 101 H 103 H 96 H Pulse Rate [ From Monitor] Respiratory 19 19 20 Rate Blood Pressure 100/53 100/53 96/56 O2 Sat by Pulse 72 L 100 100 Oximetry 04/11/18 04/11/18 04/11/18 06:00 06:11 06:21 Pulse Rate 105 H 117 H Pulse Rate [ From Monitor] Respiratory 19 20 Rate Blood Pressure 108/34 108/34 103/62 O2 Sat by Pulse 99 94 99 Oximetry 04/11/18 04/11/18 04/11/18 06:30 06:41 06:51 Pulse Rate 101 H Pulse Rate [ From Monitor] Respiratory 41 H Rate Blood Pressure 89/50 89/50 108/52 O2 Sat by Pulse 100 100 100 Oximetry 04/11/18 04/11/18 04/11/18 07:00 07:11 07:21 Pulse Rate Pulse Rate [ From Monitor] Respiratory Rate Blood Pressure 110/58 89/50 100/64 O2 Sat by Pulse 100 100 100 Oximetry 04/11/18 04/11/18 04/11/18 07:30 07:41 07:51 Pulse Rate Pulse Rate [ From Monitor] Respiratory Rate Blood Pressure 120/60 120/60 112/52 O2 Sat by Pulse 100 100 100 Oximetry 04/11/18 04/11/18 04/11/18 08:00 08:11 08:15 Pulse Rate 115 H Pulse Rate [ 106 H From Monitor] Respiratory Rate Blood Pressure 103/59 103/59 O2 Sat by Pulse 100 100 97 Oximetry 04/11/18 04/11/18 04/11/18 08:21 08:31 08:41 Pulse Rate 108 H Pulse Rate [ From Monitor] Respiratory 26 H Rate Blood Pressure 104/64 104/64 104/64 O2 Sat by Pulse 100 98 100 Oximetry 04/11/18 04/11/18 04/11/18 08:51 09:00 09:11 Pulse Rate 107 H 117 H 110 H Pulse Rate [ From Monitor] Respiratory 25 H 25 H 12 Rate Blood Pressure 100/63 116/58 116/58 O2 Sat by Pulse 100 100 100 Oximetry 04/11/18 09:21 Pulse Rate 108 H Pulse Rate [ From Monitor] Respiratory 22 Rate Blood Pressure 101/56 O2 Sat by Pulse 100 Oximetry - General Appearance General appearance: well-developed, well-nourished EENT: ATNC, PERRL Neck: no JVD, no carotid bruit Respiratory: Present: Clear to Ascultation. Absent: Rales, Ronchi Cardiology: regular, S1S2 Gastrointestinal: normoactive bowel sounds Integumentary: no rash, warm and dry Neurologic: no focal deficit, no asterixis Musculoskeletal: other (no edema in BLE) Psychiatric: cooperative - Lab 04/11/18 05:19 04/11/18 05:19 Most recent lab results Calcium 6.8 mg/dL (8.4-10.2) L 04/11/18 05:19 Phosphorus 2.40 mg/dL (2.5-4.5) L 04/11/18 05:19 Magnesium 2.60 mg/dL (1.7-2.3) H 04/09/18 16:50 Urine Creatinine 24.0 mg/dL (0.1-20.0) H 04/08/18 15:18 Urine Sodium 60 mmol/L 04/08/18 15:43 Urine Total Protein 57 mg/dL (5-11.8) H 04/08/18 15:18 Medications & Allergies - Medications Allergies/Adverse Reactions: Allergies No Known Allergies Allergy (Verified 04/08/18 02:43) Home Medications: Home Medications Medication Instructions Recorded Confirmed Last Taken Type Docusate Sodium [Colace CAP] 100 mg PO BID PRN 06/18/16 04/08/18 04/07/18 History Apixaban [Eliquis] 2.5 mg PO Q12HR #60 tablet 08/12/16 04/08/18 04/07/18 Rx Levothyroxine [Synthroid] 75 mcg PO DAILY@0600 #30 tablet 08/12/16 04/08/18 04/07/18 Rx Simvastatin [Zocor TAB] 40 mg PO QHS #30 tablet 08/12/16 04/08/18 04/07/18 Rx Acetaminophen [Tylenol] 325 mg PO PRN 04/08/18 04/08/18 04/07/18 History Digoxin [Lanoxin] 0.125 mg PO DAILY 04/08/18 04/08/18 04/07/18 History Insulin Detemir [Levemir Flextouch] 100 unit SQ DAILY 04/08/18 04/08/18 04/07/18 History Lisinopril [Prinivil] 5 mg PO DAILY 04/08/18 04/08/18 04/07/18 History Metoclopramide HCl 5 mg PO Q6HR 04/08/18 04/08/18 04/07/18 History Metoprolol Tartrate 25 mg PO TID 04/08/18 04/08/18 04/07/18 History Potassium Chloride [Klor-Con] 20 meq PO DAILY 04/08/18 04/08/18 04/07/18 History Simvastatin 40 mg PO DAILY 04/08/18 04/08/18 04/07/18 History Torsemide [Demadex] 20 mg PO DAILY 04/08/18 04/08/18 04/07/18 History Active Medications: Generic Name Dose Route Start Last Admin Trade Name Freq PRN Reason Stop Dose Admin Acetaminophen 650 mg 04/08/18 03:22 04/08/18 03:00 Tylenol FEEDTUBE 650 mg Q6H PRN Administration Pain, Mild (1-3) Lipase/Protease/Amylase 1 each 04/11/18 12:[address] 10,500 Unit FEEDTUBE PRN PRN For Clogged Feeding Tube Citric Acid/Sodium Citrate 15 ml 04/11/18 14:00 Bicitra PO TID JUNIOR Docusate Sodium 100 mg 04/08/18 05:04 Colace PO BID PRN Constipation Donepezil HCl 5 mg 04/08/18 10:00 04/11/18 09:47 Aricept PO 5 mg QDAY [facility] Administration Famotidine 20 mg 04/08/18 10:00 04/11/18 09:47 Pepcid PO 20 mg QAM JUNIOR Administration Ferrous Sulfate 325 mg 04/08/18 10:00 04/11/18 09:47 Feosol PO 325 mg QDAY [facility] Administration Dextrose 1,000 mls @ 50 mls/hr 04/09/18 10:00 04/11/18 05:57 D5w IV 50 mls/hr DIRECT JUNIOR Administration Norepinephrine 4 mg in 250 mls @ 7.5 mls/hr 04/09/18 12:00 04/09/18 18:35 Levophed Drip 4 Mg/Ns 250 Ml IV 0 mcg/min TITR JUNIOR 0 mls/hr Titration Protocol 2 MCG/MIN Cefepime HCl 1 gm in 100 mls @ 200 mls/hr 04/10/18 12:00 04/11/18 09:47 Maxipime/Ns 1 Gm/100 Ml IV 200 mls/hr Q12HR [facility]UNIOR Administration Protocol Sodium Chloride 1,000 mls @ 100 mls/hr 04/10/18 14:00 04/11/18 06:01 Nacl 0.9% 1000 Ml IV 04/11/18 23:59 100 mls/hr DIRECT [facility]UNIOR Administration Pantoprazole Sodium 80 mg/ 100 mls @ 10 mls/hr 04/10/18 19:00 Sodium Chloride IV DIRECT JUNIOR 8 MG/HR Levothyroxine Sodium 75 mcg 04/08/18 06:00 04/11/18 05:57 Synthroid PO 75 mcg DAILY@0600 JUNIOR Administration Midodrine 5 mg 04/10/18 16:00 04/11/18 09:22 Proamatine PO 5 mg TID@0800,1200,1600 [facility]UNIOR Administration Ondansetron HCl 4 mg 04/08/18 04:59 Zofran IV Q8H PRN Nausea And Vomiting Pravastatin Sodium 80 mg 04/08/18 22:00 04/10/18 21:53 Pravachol PO 80 mg QHS JUNIOR Administration Simple Syrup 15 ml 04/11/18 12:00 Simple Syrup FEEDTUBE PRN PRN Hypoglycemia Simple Syrup 30 ml 04/11/18 11:30 Simple Syrup FEEDTUBE PRN PRN Hypoglycemia Sodium Bicarbonate 325 mg 04/11/18 12:00 Sodium Bicarbonate FEEDTUBE PRN PRN For Clogged Feeding Tube
--- NOTE | 2018-04-11 15:08 | Event Note ---
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 Plan for tunneled PICC line tomorrow.
[2018-04-11] MEDS: BICITRA PO SCH ×2 (15:14→20:13)
--- NOTE | 2018-04-11 15:59 | Progress Note ---
Assessment and Plan Assessment and plan: 87-year-old woman who presents from [facility] with low blood pressure and fever. Her past medical history includes CVA with right-sided hemiplegia, aphasia , non verbal, sp PEG, bed bound, does not respond or move at baseline, only opens eyes, history of CHF, diabetes, vascular dementia, anemia, hypertension, atrial fibrillation cxr; no infiltrate Diagnoses Sepsis Hypernatremia Dehydration Urinary tract infection Elevated troponin level Septic shock ITZEL -vasomotor nephropathy Afib DM Acute blood loss anemia GI bleed Plan ID consult appreciated, fup cultures ITZEL resolved hypotonic IVF, and free water via G tube, Na now wnl optimize insulins dc eliquis, was transfused, on PPI DVT ppx- scds CCT 33 minutes Case dw son at bedside Dispo; likely dc back to [place] on Sunday when abx plan is finalized per ID History Interval history: Review of systems Constitutional: No fevers, no malaise, no joint pains CVS: No chest pain, no orthopnea, no dyspnea on exertion, no pedal edema GI: no more episodes of melena Respiratory: No shortness of breath, no wheezing, no coughing Hospitalist Physical - Physical exam Narrative exam: General.: no distress HEENT: Moist mucous membranes, extraocular muscles intact, no lymphadenopathy Neck: supple Cardiac: S1-S2 heard Lungs: clear to auscultation bilaterally Abdomen: soft , nontender, nondistended, bowel sounds positive Extremities: no edema clubbing or cyanosis Skin: no rash or lesions Neurologic: opens eyes, no spontaneous movements, does not track, does not obey commands or respond, non verbal Psych: non responsive, which is her baseline - Constitutional Vitals: Temp Pulse Resp BP Pulse Ox 98.6 F 87 16 131/54 100 04/11/18 15:09 04/11/18 15:51 04/11/18 15:51 04/11/18 15:51 04/11/18 15:51 General appearance: Present: other (lethargic, nonverbal) Results - Labs CBC & Chem 7: 04/12/18 09:03 04/12/18 09:03 Labs: Laboratory Last Values WBC 8.6 K/mm3 (4.5-11.0) 04/11/18 05:19 RBC 2.36 M/mm3 (3.65-5.03) L 04/11/18 05:19 Hgb 6.9 gm/dl (10.1-14.3) L 04/11/18 05:19 Hct 22.5 % (30.3-42.9) L 04/11/18 05:19 MCV 95 fl (79-97) 04/11/18 05:19 MCH 29 pg (28-32) 04/11/18 05:19 MCHC 31 % (30-34) 04/11/18 05:19 RDW 16.9 % (13.2-15.2) H 04/11/18 05:19 Plt Count 171 K/mm3 (140-440) 04/11/18 05:19 Lymph % (Auto) 11.6 % (13.4-35.0) L 04/11/18 05:19 [place] % (Auto) 3.5 % (0.0-7.3) 04/11/18 05:19 Eos % (Auto) 0.4 % (0.0-4.3) 04/11/18 05:19 Baso % (Auto) 0.1 % (0.0-1.8) 04/11/18 05:19 Lymph # 1.0 K/mm3 (1.2-5.4) L 04/11/18 05:19 [place] # 0.3 K/mm3 (0.0-0.8) 04/11/18 05:19 Eos # 0.0 K/mm3 (0.0-0.4) 04/11/18 05:19 Baso # 0.0 K/mm3 (0.0-0.1) 04/11/18 05:19 Add Manual Diff Complete 04/09/18 00:27 Total Counted 100 04/09/18 00:27 Seg Neutrophils % 84.4 % (40.0-70.0) H 04/11/18 05:19 Seg Neuts % (Manual) 89.0 % (40.0-70.0) H 04/09/18 00:27 Band Neutrophils % 6.0 % 04/09/18 00:27 Lymphocytes % (Manual) 5.0 % (13.4-35.0) L 04/09/18 00:27 Reactive Lymphs % (Man) 0 % 04/09/18 00:27 Monocytes % (Manual) 0 % (0.0-7.3) 04/09/18 00:27 Eosinophils % (Manual) 0 % (0.0-4.3) 04/09/18 00:27 Basophils % (Manual) 0 % (0.0-1.8) 04/09/18 00:27 Metamyelocytes % 0 % 04/09/18 00:27 Myelocytes % 0 % 04/09/18 00:27 Promyelocytes % 0 % 04/09/18 00:27 Blast Cells % 0 % 04/09/18 00:27 Nucleated RBC % Not Reportable 04/09/18 00:27 Seg Neutrophils # 7.3 K/mm3 (1.8-7.7) 04/11/18 05:19 Seg Neutrophils # Man 12.9 K/mm3 (1.8-7.7) H 04/09/18 00:27 Band Neutrophils # 0.9 K/mm3 04/09/18 00:27 Lymphocytes # (Manual) 0.7 K/mm3 (1.2-5.4) L 04/09/18 00:27 Abs React Lymphs (Man) 0.0 K/mm3 04/09/18 00:27 Monocytes # (Manual) 0.0 K/mm3 (0.0-0.8) 04/09/18 00:27 Eosinophils # (Manual) 0.0 K/mm3 (0.0-0.4) 04/09/18 00:27 Basophils # (Manual) 0.0 K/mm3 (0.0-0.1) 04/09/18 00:27 Metamyelocytes # 0.0 K/mm3 04/09/18 00:27 Myelocytes # 0.0 K/mm3 04/09/18 00:27 Promyelocytes # 0.0 K/mm3 04/09/18 00:27 Blast Cells # 0.0 K/mm3 04/09/18 00:27 WBC Morphology Not Reportable 04/09/18 00:27 Hypersegmented Neuts Not Reportable 04/09/18 00:27 Hyposegmented Neuts Not Reportable 04/09/18 00:27 Hypogranular Neuts Not Reportable 04/09/18 00:27 Smudge Cells Not Reportable 04/09/18 00:27 Toxic Granulation Not Reportable 04/09/18 00:27 Toxic Vacuolation Not Reportable 04/09/18 00:27 Dohle Bodies Not Reportable 04/09/18 00:27 Pelger-Huet Anomaly Not Reportable 04/09/18 00:27 Rene Rods Not Reportable 04/09/18 00:27 Platelet Estimate Consistent w auto 04/09/18 00:27 Clumped Platelets Not Reportable 04/09/18 00:27 Plt Clumps, EDTA Not Reportable 04/09/18 00:27 Large Platelets Not Reportable 04/09/18 00:27 Giant Platelets Not Reportable 04/09/18 00:27 Platelet Satelliting Not Reportable 04/09/18 00:27 Plt Morphology Comment Not Reportable 04/09/18 00:27 RBC Morphology Not Reportable 04/09/18 00:27 Dimorphic RBCs Not Reportable 04/09/18 00:27 Polychromasia Not Reportable 04/09/18 00:27 Hypochromasia 1+ 04/09/18 00:27 Poikilocytosis Not Reportable 04/09/18 00:27 Anisocytosis 1+ 04/09/18 00:27 Microcytosis Not Reportable 04/09/18 00:27 Macrocytosis Not Reportable 04/09/18 00:27 Spherocytes Not Reportable 04/09/18 00:27 Pappenheimer Bodies Not Reportable 04/09/18 00:27 Sickle Cells Not Reportable 04/09/18 00:27 Target Cells Not Reportable 04/09/18 00:27 Tear Drop Cells Not Reportable 04/09/18 00:27 Ovalocytes Not Reportable 04/09/18 00:27 Helmet Cells Not Reportable 04/09/18 00:27 [place] Bodies Not Reportable 04/09/18 00:27 [place] Rings Not Reportable 04/09/18 00:27 Ric Cells Not Reportable 04/09/18 00:27 Bite Cells Not Reportable 04/09/18 00:27 Crenated Cell Not Reportable 04/09/18 00:27 Elliptocytes Not Reportable 04/09/18 00:27 Acanthocytes (Spur) Not Reportable 04/09/18 00:27 Rouleaux Not Reportable 04/09/18 00:27 Hemoglobin C Crystals Not Reportable 04/09/18 00:27 Schistocytes Not Reportable 04/09/18 00:27 Malaria parasites Not Reportable 04/09/18 00:27 Ajay Bodies Not Reportable 04/09/18 00:27 Hem Pathologist Commnt No 04/09/18 00:27 POC ABG pH 7.466 (7.35-7.45) H 04/09/18 12:42 POC ABG pCO2 24.6 (35-45) L 04/09/18 12:42 POC ABG pO2 120 (80-105) H 04/09/18 12:42 POC ABG HCO3 17.7 04/09/18 12:42 POC ABG Total CO2 18 04/09/18 12:42 POC ABG O2 Sat 99 04/09/18 12:42 POC ABG Base Excess -6 04/09/18 12:42 FiO2 28 % 04/09/18 12:42 Sodium 140 mmol/L (137-145) D 04/11/18 05:19 Potassium 4.3 mmol/L (3.6-5.0) 04/11/18 05:19 Chloride 111.3 mmol/L (98-107) H 04/11/18 05:19 Carbon Dioxide 15 mmol/L (22-30) L 04/11/18 05:19 Anion Gap 18 mmol/L 04/11/18 05:19 BUN 14 mg/dL (7-17) 04/11/18 05:19 Creatinine 0.6 mg/dL (0.7-1.2) L 04/11/18 05:19 Estimated GFR > 60 ml/min 04/11/18 05:19 BUN/Creatinine Ratio 23 % 04/11/18 05:19 Glucose 137 mg/dL (65-100) H 04/11/18 05:19 POC Glucose 159 (70-105) H 04/11/18 08:21 Lactic Acid 1.60 mmol/L (0.7-2.0) 04/08/18 23:30 Calcium 6.8 mg/dL (8.4-10.2) L 04/11/18 05:19 Phosphorus 2.40 mg/dL (2.5-4.5) L 04/11/18 05:19 Magnesium 2.60 mg/dL (1.7-2.3) H 04/09/18 16:50 Total Bilirubin 0.30 mg/dL (0.1-1.2) 04/08/18 02:50 AST 74 units/L (5-40) H 04/08/18 02:50 ALT 96 units/L (7-56) H 04/08/18 02:50 Alkaline Phosphatase 70 units/L (35-129) 04/08/18 02:50 Total Creatine Kinase 1194 units/L (30-135) H 04/08/18 12:46 CK-MB (CK-2) 5.1 ng/mL (0.0-4.0) H 04/08/18 12:46 CK-MB (CK-2) Rel Index 0.4 (0-4) 04/08/18 12:46 Troponin T 0.018 ng/mL (0.00-0.029) 04/08/18 12:46 Total Protein 6.2 g/dL (6.3-8.2) L 04/08/18 02:50 Albumin 2.7 g/dL (3.9-5) L 04/08/18 02:50 Albumin/Globulin Ratio 0.8 % 04/08/18 02:50 Triglycerides 247 mg/dL (2-149) H 04/08/18 02:50 Cholesterol 116 mg/dL (50-199) 04/08/18 02:50 LDL Cholesterol Direct 55 mg/dL (50-130) 04/08/18 02:50 HDL Cholesterol 36 mg/dL (40-59) L 04/08/18 02:50 Cholesterol/HDL Ratio 3.22 % 04/08/18 02:50 TSH 0.753 mlU/mL (0.270-4.200) 04/09/18 16:50 Free T4 1.13 ng/dL (0.76-1.46) 04/09/18 16:50 PTH Intact 169.6 pg/mL (15-65) H 04/11/18 05:19 Urine Color Yellow (Yellow) 04/08/18 02:57 Urine Turbidity Turbid (Clear) 04/08/18 02:57 Urine pH 6.0 (5.0-7.0) 04/08/18 02:57 Ur Specific [place] 1.014 (1.003-1.030) 04/08/18 02:57 Urine Protein 100 mg/dl mg/dL (Negative) 04/08/18 02:57 Urine Glucose (UA) Neg mg/dL (Negative) 04/08/18 02:57 Urine Ketones Tr mg/dL (Negative) 04/08/18 02:57 Urine Blood Sm (Negative) 04/08/18 02:57 Urine Nitrite Neg (Negative) 04/08/18 02:57 Urine Bilirubin Neg (Negative) 04/08/18 02:57 Urine Urobilinogen 2.0 mg/dL (<2.0) 04/08/18 02:57 Ur Leukocyte Esterase Mod (Negative) 04/08/18 02:57 Urine WBC (Auto) > 182.0 /HPF (0.0-6.0) H 04/08/18 02:57 Urine RBC (Auto) 23.0 /HPF (0.0-6.0) 04/08/18 02:57 Urine Bacteria (Auto) 4+ /HPF (Negative) 04/08/18 02:57 Calcium Oxalate Crystal 2+ 04/08/18 02:57 Amorphous Crystals 2+ 04/08/18 02:57 Urine Creatinine 24.0 mg/dL (0.1-20.0) H 04/08/18 15:18 Protein/Creatinin Ratio 2.38 04/08/18 15:18 Urine Sodium 60 mmol/L 04/08/18 15:43 Urine Total Protein 57 mg/dL (5-11.8) H 04/08/18 15:18 Digoxin 1.1 ng/mL (0.9-2.0) 04/09/18 01:23 Group A Strep Rapid Negative (Negative) 04/08/18 00:35 Blood Type O POSITIVE 04/11/18 05:19 Antibody Screen Negative 04/11/18 05:19 Crossmatch See Detail 04/11/18 05:19 Nutrition/Malnutrition Assess - Dietary Evaluation Nutrition/Malnutrition Findings: Nutrition Notes Start: 04/09/18 16:11 Freq: Status: Active Protocol: Document 04/11/18 11:59 HANNA (Rec: 04/11/18 12:58 HANNA [email or web address]) Co-Sign 04/11/18 11:59 OL Nutrition Notes Initial or Follow up Brief Note Current Diet NPO Subjective/Other Information During interdisciplinary rounds, MD requested to restart TF. Nutrition Intervention Nutrition Support: Glucerna 1.2 at 50 ml/hr with water flush of 80ml q4h or per MD Kcal 1,152 Protein (gm) 72 Fluid (mL) 966 Follow-Up By: 04/15/18 Additional Comments F/u: new TF
[2018-04-11] MEDS: PRAVACHOL PO SCH (21:33)
[2018-04-12] MEDS: SYNTHROID PO SCH (05:16)
[2018-04-12] MEDS: PROAMATINE PO SCH ×4 (07:32→16:30)
[2018-04-12] MEDS ORDERED: NACL 0.9% 1000 ML 1,000 ML IV SCH ×2 (08:00→15:00)
[2018-04-12 09:23] LABS: Basophils % (Auto) 0.4 % (0.0-1.8); Eosinophils # (Auto) 0.2 K/mm3 (0.0-0.4); Eosinophils % (Auto) 2.3 % (0.0-4.3); Hematocrit 27.2 % (30.3-42.9); Hemoglobin 8.8 gm/dl (10.1-14.3); Lymphocytes # (Auto) 1.1 K/mm3 (1.2-5.4); Lymphocytes % (Auto) 11.3 % (13.4-35.0); Mean Corpuscular HGB Conc 33 % (30-34); Mean Corpuscular Volume 90 fl (79-97); Monocytes # (Auto) 0.5 K/mm3 (0.0-0.8); Monocytes % (Auto) 5.2 % (0.0-7.3); Platelet Count 168 K/mm3 (140-440); Red Blood Count 3.02 M/mm3 (3.65-5.03); Red Cell Distribution Width 16.6 % (13.2-15.2)
[2018-04-12 09:37] LABS: BUN/Creatinine Ratio 18; Blood Urea Nitrogen 11 mg/dL (7-17); Calcium 6.9 mg/dL (8.4-10.2); Hemolysis Index 7
--- NOTE | 2018-04-12 10:02 | Progress Note ---
Assessment and Plan -Severe sepsis with septic shock -UTI -Acute renal failure, vasomotor nephropathy, ischemic ATN -Lactic acidosis -Hyperglycemia -Hypernatremia -Acute on chronic encephalopathy( toxic, metabolic) -h/o CVA -Oropharyngeal dysphagia with PEG -Anemia -EGD today -Continue broad spectrum antibiotics,, follow cultures -De-escalate antibiotic therapy based on PETR and cultures reports -Will discontinue femoral CVC in the next 24 hours and assess need for ongoing CVC access -Tube feeding on hold for EGD -Aspiration precautions -Adjust all medications for CrCl/GFR. Avoid nephrotoxic agents -Accuchecks with glycemic control. Target glucose 140-180 mg/dL -VTE prophylaxis, on hold secondary to anemia -Mobility program for pressure ulcer prevention -Aspiration precautions Updated son at the bedside, answered all his questions FULL CODE CONDITION: CRITICAL PROGNOSIS: GUARDED The high probability of a clinically significant, sudden or life-threatening deterioration of the [respiratory, cardiovascular, renal] system(s) required my full and direct attention, intervention and personal management. The aggregate critical care time was [35] minutes without overlap. Time includes spent on; [x] Data Review and interpretation [x] Patient assessment and monitoring of vital signs [x] Documentation [x] Medication orders and management Subjective Date of service: 04/12/18 Principal diagnosis: Severe sepsis with shock; UTI; ITZEL; Hypernatremia Interval history: Seen and examined. Son at the bedside. Vitals, albs, medications, chart reviewed. Off vasopresssor support s/p PRCB transfusion. No acute overnight events reported. No fevers, hemodynamoics remain with normal limits For bedside EGD by GI today Objective Vital Signs - 12hr 04/11/18 04/11/18 04/11/18 22:11 22:21 22:31 Temperature Pulse Rate 90 99 H 100 H Pulse Rate [ From Monitor] Respiratory 21 25 H 25 H Rate Blood Pressure 98/65 98/65 98/65 O2 Sat by Pulse 100 100 100 Oximetry 04/11/18 04/11/18 04/11/18 22:41 22:51 23:00 Temperature Pulse Rate 88 95 H 95 H Pulse Rate [ From Monitor] Respiratory 24 26 H 26 H Rate Blood Pressure 98/65 98/65 110/59 O2 Sat by Pulse 100 100 100 Oximetry 04/11/18 04/11/18 04/11/18 23:11 23:21 23:31 Temperature Pulse Rate 92 H 94 H 101 H Pulse Rate [ From Monitor] Respiratory 26 H 28 H 26 H Rate Blood Pressure 110/59 110/59 110/59 O2 Sat by Pulse 100 100 100 Oximetry 04/11/18 04/11/18 04/11/18 23:32 23:41 23:43 Temperature 100.1 F H Pulse Rate 95 H 101 H Pulse Rate [ From Monitor] Respiratory 22 25 H Rate Blood Pressure 110/59 110/59 O2 Sat by Pulse 100 100 Oximetry 04/11/18 04/12/18 04/12/18 23:51 00:00 00:11 Temperature Pulse Rate 101 H 101 H 88 Pulse Rate [ 88 From Monitor] Respiratory 25 H 19 20 Rate Blood Pressure 110/59 115/62 110/59 O2 Sat by Pulse 100 99 100 Oximetry 04/12/18 04/12/18 04/12/18 00:21 00:31 00:41 Temperature Pulse Rate 92 H 99 H 99 H Pulse Rate [ From Monitor] Respiratory 22 18 22 Rate Blood Pressure 110/59 110/59 110/59 O2 Sat by Pulse 100 100 100 Oximetry 04/12/18 04/12/18 04/12/18 00:51 01:00 01:11 Temperature Pulse Rate 98 H 90 96 H Pulse Rate [ From Monitor] Respiratory 25 H 21 23 Rate Blood Pressure 110/59 115/52 115/52 O2 Sat by Pulse 99 100 100 Oximetry 04/12/18 04/12/18 04/12/18 01:20 01:31 01:41 Temperature Pulse Rate 99 H 99 H 90 Pulse Rate [ From Monitor] Respiratory 22 21 21 Rate Blood Pressure 115/52 115/52 115/52 O2 Sat by Pulse 99 98 99 Oximetry 04/12/18 04/12/18 04/12/18 01:51 02:00 02:11 Temperature Pulse Rate 95 H 95 H 92 H Pulse Rate [ From Monitor] Respiratory 22 22 24 Rate Blood Pressure 115/52 130/66 130/66 O2 Sat by Pulse 100 100 98 Oximetry 04/12/18 04/12/18 04/12/18 02:21 02:31 02:41 Temperature Pulse Rate 92 H 85 91 H Pulse Rate [ From Monitor] Respiratory 23 23 21 Rate Blood Pressure 130/66 130/66 130/66 O2 Sat by Pulse 98 99 98 Oximetry 04/12/18 04/12/18 04/12/18 02:51 03:00 03:11 Temperature Pulse Rate 92 H 90 79 Pulse Rate [ From Monitor] Respiratory 22 20 23 Rate Blood Pressure 130/66 131/62 130/66 O2 Sat by Pulse 100 99 97 Oximetry 04/12/18 04/12/18 04/12/18 03:21 03:31 03:41 Temperature Pulse Rate 94 H 99 H 93 H Pulse Rate [ From Monitor] Respiratory 24 26 H 26 H Rate Blood Pressure 130/66 130/66 130/66 O2 Sat by Pulse 99 99 99 Oximetry 04/12/18 04/12/18 04/12/18 03:51 04:00 04:01 Temperature 100.1 F H Pulse Rate 96 H 98 H 96 H Pulse Rate [ 84 From Monitor] Respiratory 26 H 22 25 H Rate Blood Pressure 130/66 129/30 O2 Sat by Pulse 100 100 100 Oximetry 04/12/18 04/12/18 04/12/18 04:11 04:21 04:31 Temperature Pulse Rate 98 H 90 90 Pulse Rate [ From Monitor] Respiratory 23 22 23 Rate Blood Pressure 129/30 129/30 129/30 O2 Sat by Pulse 100 100 100 Oximetry 04/12/18 04/12/18 04/12/18 04:41 04:51 05:01 Temperature Pulse Rate 96 H 91 H 114 H Pulse Rate [ From Monitor] Respiratory 22 23 27 H Rate Blood Pressure 129/30 129/30 123/32 O2 Sat by Pulse 99 100 98 Oximetry 04/12/18 04/12/18 04/12/18 05:11 05:21 05:31 Temperature Pulse Rate 111 H 105 H 105 H Pulse Rate [ From Monitor] Respiratory 24 26 H 20 Rate Blood Pressure 123/32 123/32 123/32 O2 Sat by Pulse 100 100 99 Oximetry 04/12/18 04/12/18 04/12/18 05:41 05:51 06:00 Temperature Pulse Rate 110 H 95 H 97 H Pulse Rate [ From Monitor] Respiratory 22 26 H 24 Rate Blood Pressure 123/32 123/32 115/69 O2 Sat by Pulse 99 100 97 Oximetry 04/12/18 04/12/18 04/12/18 06:11 06:21 06:31 Temperature Pulse Rate 89 97 H 94 H Pulse Rate [ From Monitor] Respiratory 22 24 22 Rate Blood Pressure 115/69 115/69 115/69 O2 Sat by Pulse 100 100 99 Oximetry 04/12/18 04/12/18 04/12/18 06:41 06:51 07:00 Temperature Pulse Rate 91 H 101 H 90 Pulse Rate [ From Monitor] Respiratory 22 25 H 23 Rate Blood Pressure 115/69 115/69 115/69 O2 Sat by Pulse 100 100 100 Oximetry 04/12/18 04/12/18 04/12/18 07:11 07:21 07:31 Temperature Pulse Rate 91 H 92 H 96 H Pulse Rate [ From Monitor] Respiratory 21 22 24 Rate Blood Pressure 113/62 115/69 115/69 O2 Sat by Pulse 100 98 100 Oximetry 04/12/18 04/12/18 04/12/18 07:41 07:51 08:00 Temperature Pulse Rate 93 H 91 H 85 Pulse Rate [ From Monitor] Respiratory 24 22 21 Rate Blood Pressure 115/69 115/69 112/57 O2 Sat by Pulse 98 100 100 Oximetry 04/12/18 04/12/18 08:11 08:21 Temperature Pulse Rate 85 Pulse Rate [ From Monitor] Respiratory 22 Rate Blood Pressure 112/57 O2 Sat by Pulse 100 100 Oximetry Constitutional: lethargic, appears uncomfortable, other (elderly looking AF, normocephalic and atraumatic without overt respiratory distress) Eyes: non-icteric ENT: oropharynx dry, other Neck: supple, no lymphadenopathy, no JVD Effort: mildly labored Ascultation: Bilateral: clear, diminished breath sounds Percussion: Bilateral: not dull Cardiovascular: regular rate and rhythm, other (Tachycardia, S1,S2, no murmurs, gallops or rubs) Gastrointestinal: normoactive bowel sounds, soft, non-tender, non-distended, other (no guarding, PEG in place, Abbott cahter with tea colored urine in place) Integumentary: other (loss of skin tugor) Extremities: no cyanosis, no edema, pink and warm, pulses normal, no ischemia or petechiae Neurologic: pupils equal and round, unable to assess (otherwise) Psychiatric: other (unable to assess) CBC and BMP: 04/14/18 05:30 04/14/18 05:30 ABG, PT/INR, D-dimer: ABG POC ABG pH 7.466 (7.35-7.45) H 04/09/18 12:42 POC ABG pCO2 24.6 (35-45) L 04/09/18 12:42 POC ABG pO2 120 (80-105) H 04/09/18 12:42 POC ABG HCO3 17.7 04/09/18 12:42 POC ABG Total CO2 18 04/09/18 12:42 POC ABG O2 Sat 99 04/09/18 12:42 Abnormal lab findings: Abnormal Labs 04/08/18 04/08/18 04/08/18 02:50 02:50 02:50 WBC 16.5 H RBC 3.37 L Hgb 9.7 L Hct RDW 17.6 H Lymph % (Auto) 11.0 L Lymph # [place] # 1.0 H Seg Neutrophils % 82.7 H Seg Neuts % (Manual) Lymphocytes % (Manual) Seg Neutrophils # 13.7 H Seg Neutrophils # Man Lymphocytes # (Manual) POC ABG pH POC ABG pCO2 POC ABG pO2 Sodium 152 H Potassium Chloride 108.9 H Carbon Dioxide BUN 102 H Creatinine 1.7 H Glucose 291 H POC Glucose Lactic Acid 2.70 H* Calcium 7.8 L Phosphorus Magnesium AST 74 H ALT 96 H Total Creatine Kinase CK-MB (CK-2) Troponin T 0.068 H Total Protein 6.2 L Albumin 2.7 L Triglycerides 247 H HDL Cholesterol 36 L PTH Intact Urine WBC (Auto) Urine Creatinine Urine Total Protein Crossmatch 04/08/18 04/08/18 04/08/18 02:50 02:57 03:44 WBC RBC Hgb Hct RDW Lymph % (Auto) Lymph # [place] # Seg Neutrophils % Seg Neuts % (Manual) Lymphocytes % (Manual) Seg Neutrophils # Seg Neutrophils # Man Lymphocytes # (Manual) POC ABG pH POC ABG pCO2 POC ABG pO2 Sodium Potassium Chloride Carbon Dioxide BUN Creatinine Glucose POC Glucose 289 H Lactic Acid Calcium Phosphorus Magnesium AST ALT Total Creatine Kinase CK-MB (CK-2) Troponin T Total Protein Albumin Triglycerides HDL Cholesterol PTH Intact Urine WBC (Auto) > 182.0 H Urine Creatinine Urine Total Protein Crossmatch See Detail 04/08/18 04/08/18 04/08/18 04:30 05:59 05:59 WBC RBC Hgb Hct RDW Lymph % (Auto) Lymph # [place] # Seg Neutrophils % Seg Neuts % (Manual) Lymphocytes % (Manual) Seg Neutrophils # Seg Neutrophils # Man Lymphocytes # (Manual) POC ABG pH POC ABG pCO2 POC ABG pO2 Sodium Potassium Chloride Carbon Dioxide BUN Creatinine Glucose POC Glucose Lactic Acid 3.50 H* 2.70 H* Calcium Phosphorus Magnesium AST ALT Total Creatine Kinase 1203 H CK-MB (CK-2) 4.7 H Troponin T 0.042 H D Total Protein Albumin Triglycerides HDL Cholesterol PTH Intact Urine WBC (Auto) Urine Creatinine Urine Total Protein Crossmatch 04/08/18 04/08/18 04/08/18 06:04 07:06 10:53 WBC RBC Hgb Hct RDW Lymph % (Auto) Lymph # [place] # Seg Neutrophils % Seg Neuts % (Manual) Lymphocytes % (Manual) Seg Neutrophils # Seg Neutrophils # Man Lymphocytes # (Manual) POC ABG pH POC ABG pCO2 POC ABG pO2 Sodium Potassium Chloride Carbon Dioxide BUN Creatinine Glucose POC Glucose 323 H Lactic Acid 2.40 H* 2.30 H* Calcium Phosphorus Magnesium AST ALT Total Creatine Kinase CK-MB (CK-2) Troponin T Total Protein Albumin Triglycerides HDL Cholesterol PTH Intact Urine WBC (Auto) Urine Creatinine Urine Total Protein Crossmatch 04/08/18 04/08/18 04/08/18 12:07 12:46 13:17 WBC RBC Hgb Hct RDW Lymph % (Auto) Lymph # [place] # Seg Neutrophils % Seg Neuts % (Manual) Lymphocytes % (Manual) Seg Neutrophils # Seg Neutrophils # Man Lymphocytes # (Manual) POC ABG pH POC ABG pCO2 POC ABG pO2 Sodium Potassium Chloride Carbon Dioxide BUN Creatinine Glucose POC Glucose 318 H 335 H Lactic Acid Calcium Phosphorus Magnesium AST ALT Total Creatine Kinase 1194 H CK-MB (CK-2) 5.1 H Troponin T Total Protein Albumin Triglycerides HDL Cholesterol PTH Intact Urine WBC (Auto) Urine Creatinine Urine Total Protein Crossmatch 04/08/18 04/08/18 04/08/18 13:19 14:32 15:18 WBC RBC Hgb Hct RDW Lymph % (Auto) Lymph # [place] # Seg Neutrophils % Seg Neuts % (Manual) Lymphocytes % (Manual) Seg Neutrophils # Seg Neutrophils # Man Lymphocytes # (Manual) POC ABG pH POC ABG pCO2 POC ABG pO2 Sodium Potassium Chloride Carbon Dioxide BUN Creatinine Glucose POC Glucose 291 H Lactic Acid 2.60 H* Calcium Phosphorus Magnesium AST ALT Total Creatine Kinase CK-MB (CK-2) Troponin T Total Protein Albumin Triglycerides HDL Cholesterol PTH Intact Urine WBC (Auto) Urine Creatinine 24.0 H Urine Total Protein 57 H Crossmatch 04/08/18 04/08/18 04/08/18 15:40 16:54 17:52 WBC RBC Hgb Hct RDW Lymph % (Auto) Lymph # [place] # Seg Neutrophils % Seg Neuts % (Manual) Lymphocytes % (Manual) Seg Neutrophils # Seg Neutrophils # Man Lymphocytes # (Manual) POC ABG pH POC ABG pCO2 POC ABG pO2 Sodium Potassium Chloride Carbon Dioxide BUN Creatinine Glucose POC Glucose 280 H 226 H Lactic Acid 3.10 H* Calcium Phosphorus Magnesium AST ALT Total Creatine Kinase CK-MB (CK-2) Troponin T Total Protein Albumin Triglycerides HDL Cholesterol PTH Intact Urine WBC (Auto) Urine Creatinine Urine Total Protein Crossmatch 04/08/18 04/08/18 04/08/18 18:35 19:18 19:57 WBC RBC Hgb Hct RDW Lymph % (Auto) Lymph # [place] # Seg Neutrophils % Seg Neuts % (Manual) Lymphocytes % (Manual) Seg Neutrophils # Seg Neutrophils # Man Lymphocytes # (Manual) POC ABG pH POC ABG pCO2 POC ABG pO2 Sodium Potassium Chloride Carbon Dioxide BUN Creatinine Glucose POC Glucose 247 H Lactic Acid 2.60 H* 2.60 H* Calcium Phosphorus Magnesium AST ALT Total Creatine Kinase CK-MB (CK-2) Troponin T Total Protein Albumin Triglycerides HDL Cholesterol PTH Intact Urine WBC (Auto) Urine Creatinine Urine Total Protein Crossmatch 04/08/18 04/08/18 04/09/18 21:41 22:56 00:27 WBC 14.5 H RBC 2.78 L Hgb 8.1 L Hct 26.4 L RDW 16.7 H Lymph % (Auto) Lymph # [place] # Seg Neutrophils % Seg Neuts % (Manual) 89.0 H Lymphocytes % (Manual) 5.0 L Seg Neutrophils # Seg Neutrophils # Man 12.9 H Lymphocytes # (Manual) 0.7 L POC ABG pH POC ABG pCO2 POC ABG pO2 Sodium Potassium Chloride Carbon Dioxide BUN Creatinine Glucose POC Glucose 164 H Lactic Acid 3.80 H* Calcium Phosphorus Magnesium AST ALT Total Creatine Kinase CK-MB (CK-2) Troponin T Total Protein Albumin Triglycerides HDL Cholesterol PTH Intact Urine WBC (Auto) Urine Creatinine Urine Total Protein Crossmatch 04/09/18 04/09/18 04/09/18 00:27 02:54 05:51 WBC RBC Hgb Hct RDW Lymph % (Auto) Lymph # [place] # Seg Neutrophils % Seg Neuts % (Manual) Lymphocytes % (Manual) Seg Neutrophils # Seg Neutrophils # Man Lymphocytes # (Manual) POC ABG pH POC ABG pCO2 POC ABG pO2 Sodium 149 H Potassium Chloride 118.4 H Carbon Dioxide BUN 38 H Creatinine 0.6 L D Glucose 153 H POC Glucose 151 H 203 H Lactic Acid Calcium 6.6 L D Phosphorus Magnesium AST ALT Total Creatine Kinase CK-MB (CK-2) Troponin T Total Protein Albumin Triglycerides HDL Cholesterol PTH Intact Urine WBC (Auto) Urine Creatinine Urine Total Protein Crossmatch 04/09/18 04/09/18 04/09/18 06:00 06:00 10:18 WBC 13.2 H RBC 2.84 L Hgb 8.2 L Hct 27.1 L RDW 17.2 H Lymph % (Auto) 8.5 L Lymph # 1.1 L [place] # Seg Neutrophils % 87.2 H Seg Neuts % (Manual) Lymphocytes % (Manual) Seg Neutrophils # 11.5 H Seg Neutrophils # Man Lymphocytes # (Manual) POC ABG pH POC ABG pCO2 POC ABG pO2 Sodium 152 H Potassium Chloride 119.6 H Carbon Dioxide 21 L BUN 33 H Creatinine Glucose 187 H POC Glucose 217 H Lactic Acid Calcium 6.8 L Phosphorus Magnesium AST ALT Total Creatine Kinase CK-MB (CK-2) Troponin T Total Protein Albumin Triglycerides HDL Cholesterol PTH Intact Urine WBC (Auto) Urine Creatinine Urine Total Protein Crossmatch 04/09/18 04/09/18 04/09/18 12:42 16:50 17:40 WBC RBC Hgb Hct RDW Lymph % (Auto) Lymph # [place] # Seg Neutrophils % Seg Neuts % (Manual) Lymphocytes % (Manual) Seg Neutrophils # Seg Neutrophils # Man Lymphocytes # (Manual) POC ABG pH 7.466 H POC ABG pCO2 24.6 L POC ABG pO2 120 H Sodium Potassium Chloride Carbon Dioxide BUN Creatinine Glucose POC Glucose 244 H Lactic Acid Calcium Phosphorus Magnesium 2.60 H AST ALT Total Creatine Kinase CK-MB (CK-2) Troponin T Total Protein Albumin Triglycerides HDL Cholesterol PTH Intact Urine WBC (Auto) Urine Creatinine Urine Total Protein Crossmatch 04/09/18 04/10/18 04/10/18 23:55 00:33 05:00 WBC RBC 2.47 L Hgb 7.3 L Hct 23.6 L RDW 16.9 H Lymph % (Auto) Lymph # 1.1 L [place] # Seg Neutrophils % 82.0 H Seg Neuts % (Manual) Lymphocytes % (Manual) Seg Neutrophils # Seg Neutrophils # Man Lymphocytes # (Manual) POC ABG pH POC ABG pCO2 POC ABG pO2 Sodium Potassium Chloride Carbon Dioxide BUN Creatinine Glucose POC Glucose 233 H 176 H Lactic Acid Calcium Phosphorus Magnesium AST ALT Total Creatine Kinase CK-MB (CK-2) Troponin T Total Protein Albumin Triglycerides HDL Cholesterol PTH Intact Urine WBC (Auto) Urine Creatinine Urine Total Protein Crossmatch 04/10/18 04/10/18 04/10/18 05:00 05:19 11:42 WBC RBC Hgb Hct RDW Lymph % (Auto) Lymph # [place] # Seg Neutrophils % Seg Neuts % (Manual) Lymphocytes % (Manual) Seg Neutrophils # Seg Neutrophils # Man Lymphocytes # (Manual) POC ABG pH POC ABG pCO2 POC ABG pO2 Sodium 150 H Potassium Chloride 120.0 H Carbon Dioxide 20 L BUN 21 H Creatinine 0.6 L Glucose 189 H POC Glucose 197 H 197 H Lactic Acid Calcium 6.5 L Phosphorus 2.10 L D Magnesium AST ALT Total Creatine Kinase CK-MB (CK-2) Troponin T Total Protein Albumin Triglycerides HDL Cholesterol PTH Intact Urine WBC (Auto) Urine Creatinine Urine Total Protein Crossmatch 04/10/18 04/10/18 04/11/18 17:32 20:38 00:24 WBC RBC Hgb Hct RDW Lymph % (Auto) Lymph # [place] # Seg Neutrophils % Seg Neuts % (Manual) Lymphocytes % (Manual) Seg Neutrophils # Seg Neutrophils # Man Lymphocytes # (Manual) POC ABG pH POC ABG pCO2 POC ABG pO2 Sodium Potassium Chloride Carbon Dioxide BUN Creatinine Glucose POC Glucose 114 H 107 H 110 H Lactic Acid Calcium Phosphorus Magnesium AST ALT Total Creatine Kinase CK-MB (CK-2) Troponin T Total Protein Albumin Triglycerides HDL Cholesterol PTH Intact Urine WBC (Auto) Urine Creatinine Urine Total Protein Crossmatch 04/11/18 04/11/18 04/11/18 04:01 05:19 05:19 WBC RBC 2.36 L Hgb 6.9 L Hct 22.5 L RDW 16.9 H Lymph % (Auto) 11.6 L Lymph # 1.0 L [place] # Seg Neutrophils % 84.4 H Seg Neuts % (Manual) Lymphocytes % (Manual) Seg Neutrophils # Seg Neutrophils # Man Lymphocytes # (Manual) POC ABG pH POC ABG pCO2 POC ABG pO2 Sodium Potassium Chloride 111.3 H Carbon Dioxide 15 L BUN Creatinine 0.6 L Glucose 137 H POC Glucose 137 H Lactic Acid Calcium 6.8 L Phosphorus 2.40 L Magnesium AST ALT Total Creatine Kinase CK-MB (CK-2) Troponin T Total Protein Albumin Triglycerides HDL Cholesterol PTH Intact Urine WBC (Auto) Urine Creatinine Urine Total Protein Crossmatch 04/11/18 04/11/18 04/11/18 05:19 05:19 08:21 WBC RBC Hgb Hct RDW Lymph % (Auto) Lymph # [place] # Seg Neutrophils % Seg Neuts % (Manual) Lymphocytes % (Manual) Seg Neutrophils # Seg Neutrophils # Man Lymphocytes # (Manual) POC ABG pH POC ABG pCO2 POC ABG pO2 Sodium Potassium Chloride Carbon Dioxide BUN Creatinine Glucose POC Glucose 159 H Lactic Acid Calcium Phosphorus Magnesium AST ALT Total Creatine Kinase CK-MB (CK-2) Troponin T Total Protein Albumin Triglycerides HDL Cholesterol PTH Intact 169.6 H Urine WBC (Auto) Urine Creatinine Urine Total Protein Crossmatch See Detail 04/11/18 04/11/18 04/11/18 12:41 16:05 21:11 WBC RBC Hgb Hct RDW Lymph % (Auto) Lymph # [place] # Seg Neutrophils % Seg Neuts % (Manual) Lymphocytes % (Manual) Seg Neutrophils # Seg Neutrophils # Man Lymphocytes # (Manual) POC ABG pH POC ABG pCO2 POC ABG pO2 Sodium Potassium Chloride Carbon Dioxide BUN Creatinine Glucose POC Glucose 180 H 165 H 133 H Lactic Acid Calcium Phosphorus Magnesium AST ALT Total Creatine Kinase CK-MB (CK-2) Troponin T Total Protein Albumin Triglycerides HDL Cholesterol PTH Intact Urine WBC (Auto) Urine Creatinine Urine Total Protein Crossmatch 04/12/18 04/12/18 04/12/18 00:15 03:51 06:39 WBC RBC Hgb Hct RDW Lymph % (Auto) Lymph # [place] # Seg Neutrophils % Seg Neuts % (Manual) Lymphocytes % (Manual) Seg Neutrophils # Seg Neutrophils # Man Lymphocytes # (Manual) POC ABG pH POC ABG pCO2 POC ABG pO2 Sodium Potassium Chloride Carbon Dioxide BUN Creatinine Glucose POC Glucose 106 H 134 H 121 H Lactic Acid Calcium Phosphorus Magnesium AST ALT Total Creatine Kinase CK-MB (CK-2) Troponin T Total Protein Albumin Triglycerides HDL Cholesterol PTH Intact Urine WBC (Auto) Urine Creatinine Urine Total Protein Crossmatch 04/12/18 04/12/18 09:03 09:03 WBC RBC 3.02 L Hgb 8.8 L Hct 27.2 L RDW 16.6 H Lymph % (Auto) 11.3 L Lymph # 1.1 L [place] # Seg Neutrophils % 80.8 H Seg Neuts % (Manual) Lymphocytes % (Manual) Seg Neutrophils # 7.9 H Seg Neutrophils # Man Lymphocytes # (Manual) POC ABG pH POC ABG pCO2 POC ABG pO2 Sodium Potassium 3.2 L D Chloride 115.3 H Carbon Dioxide 14 L BUN Creatinine 0.6 L Glucose 118 H POC Glucose Lactic Acid Calcium 6.9 L Phosphorus 1.90 L D Magnesium AST ALT Total Creatine Kinase CK-MB (CK-2) Troponin T Total Protein Albumin Triglycerides HDL Cholesterol PTH Intact Urine WBC (Auto) Urine Creatinine Urine Total Protein Crossmatch Allied health notes reviewed: nursing
--- NOTE | 2018-04-12 10:06 | Progress Note ---
Assessment and Plan Cultures: 04/08/2018 blood cultures: 1 out of 4 bottles positive for CoNS 04/08/2018 urine culture: no growth A/P: 87-year-old female with prior CVA, right-sided hemiplegia, aphasia, CHF, diabetes mellitus, vascular dementia who is a assisted resident, admitted with: #1 Septic shock: Source is likely urine.UA with significant pyuria. Chest x-ray not concerning for an obvious pneumonia. #2 Urinary tract infection: no growth on urine culture, but thick sediment and significant pyuria on admission. Continue Cefepime. #3 Acute encephalopathy: Likely metabolic and septic in etiology. #4 Acute kidney injury: resolved. #5 CoNS bacteremia: One out of 4 bottles positive for CoNS, likely contaminant. No further work up needed. Recs: increased IV Cefepime dose to 1 gm q8 hrs awaiting tunneled PICC before removal of femoral CVL Will follow. Shannon Campos MD [facility] C: [phone] O: [phone] F: [phone] Subjective Date of service: 04/12/18 Principal diagnosis: Severe sepsis with shock; UTI; ITZEL; Hypernatremia Interval history: low grade temperatures. Planned for EGD today. Non verbal. Discussed with RN, having increased sediment in urine. Objective - Exam Narrative Exam: Physical Exam: Constitutional: Alert, non verbal, no distress Head, Ears, Nose: Normocephalic, atraumatic. External ears, nose normal Eyes: Conjunctivae/corneas clear. No icterus. No ptosis. Neck: Supple, no meningeal signs Cardiovascular: S1, S2 normal. Respiratory: Good air entry, clear to auscultation bilaterally GI: Soft, non-tender; bowel sounds normal. No peritoneal signs Musculoskeletal: No pedal edema, no cyanosis. Right femoral CVL + Skin: No rash or abscess Hem/Lymphatic: No palpable cervical or supraclavicular nodes. No lymphangitis Psych: no agitation Neurological: awake, non verbal. - Constitutional Vitals: Vital Signs Temp Pulse Resp BP Pulse Ox 100.1 F H 85 22 112/57 100 04/12/18 04:00 04/12/18 08:11 04/12/18 08:11 04/12/18 08:11 04/12/18 08:21 Temperature -Last 24 Hours Temperature 100.1 F Temperature 100.1 F Temperature 99.5 F Temperature 98.7 F Temperature 98.7 F Temperature 98.6 F Temperature 98.7 F Temperature 98.6 F Temperature 98.1 F Temperature 99.6 F Temperature 99.6 F - Labs CBC & Chem 7: 04/12/18 09:03 04/12/18 09:03 Labs: Abnormal lab results 04/11/18 04/11/18 04/11/18 Range/Units 05:19 12:41 16:05 RBC (3.65-5.03) M/mm3 Hgb (10.1-14.3) gm/dl Hct (30.3-42.9) % RDW (13.2-15.2) % Lymph % (Auto) (13.4-35.0) % Lymph # (1.2-5.4) K/mm3 Seg Neutrophils % (40.0-70.0) % Seg Neutrophils # (1.8-7.7) K/mm3 Potassium (3.6-5.0) mmol/L Chloride (98-107) mmol/L Carbon Dioxide (22-30) mmol/L Creatinine (0.7-1.2) mg/dL Glucose (65-100) mg/dL POC Glucose 180 H 165 H (70-105) Calcium (8.4-10.2) mg/dL Phosphorus (2.5-4.5) mg/dL Crossmatch See Detail 04/11/18 04/12/18 04/12/18 Range/Units 21:11 00:15 03:51 RBC (3.65-5.03) M/mm3 Hgb (10.1-14.3) gm/dl Hct (30.3-42.9) % RDW (13.2-15.2) % Lymph % (Auto) (13.4-35.0) % Lymph # (1.2-5.4) K/mm3 Seg Neutrophils % (40.0-70.0) % Seg Neutrophils # (1.8-7.7) K/mm3 Potassium (3.6-5.0) mmol/L Chloride (98-107) mmol/L Carbon Dioxide (22-30) mmol/L Creatinine (0.7-1.2) mg/dL Glucose (65-100) mg/dL POC Glucose 133 H 106 H 134 H (70-105) Calcium (8.4-10.2) mg/dL Phosphorus (2.5-4.5) mg/dL Crossmatch 04/12/18 04/12/18 04/12/18 Range/Units 06:39 09:03 09:03 RBC 3.02 L (3.65-5.03) M/mm3 Hgb 8.8 L (10.1-14.3) gm/dl Hct 27.2 L (30.3-42.9) % RDW 16.6 H (13.2-15.2) % Lymph % (Auto) 11.3 L (13.4-35.0) % Lymph # 1.1 L (1.2-5.4) K/mm3 Seg Neutrophils % 80.8 H (40.0-70.0) % Seg Neutrophils # 7.9 H (1.8-7.7) K/mm3 Potassium 3.2 L D (3.6-5.0) mmol/L Chloride 115.3 H (98-107) mmol/L Carbon Dioxide 14 L (22-30) mmol/L Creatinine 0.6 L (0.7-1.2) mg/dL Glucose 118 H (65-100) mg/dL POC Glucose 121 H (70-105) Calcium 6.9 L (8.4-10.2) mg/dL Phosphorus 1.90 L D (2.5-4.5) mg/dL Crossmatch
--- NOTE | 2018-04-12 10:25 | Progress Note ---
Assessment and Plan UTI / sepsis / hypotension / dehydration Management per primary/critical care. GPC bacteremia - one out of 4 bottles positive for GPC. ID following. Currently weaned off levophed. ECHO 04/09/18: EF 50-55%, mild LVH GI bleed / Anemia Eliquis held. Pt for EGD today. Currently stable cardiac status. Pt currently at moderate cardiovascular risk for endoscopy. No current cardiac contraindications to proceeding with endoscopy at this time. ITZEL / dehydration Renal indices improving Paroxysmal atrial fibrillation with CVR Eliquis held in setting of GI bleed and anemia. NSVT Consider addition of BB if/when BPs permit. H/o CVA with right-sided hemiplegia and aphasia, s/p PEG tube Hypernatremia HTN HLP DM Dementia / ? encephalopathy The patient has been seen in conjunction with Dr. Barnes who agrees with the assessment and plan of care. Subjective Date of service: 04/12/18 Principal diagnosis: Severe sepsis with shock; UTI; ITZEL; Hypernatremia Interval history: pt resting in bed, eyes open, nonverbal at baseline. family member at bedside. remains in AFib on telemetry. Objective Last Vital Signs Temp 100.1 F H 04/12/18 04:00 Pulse 85 04/12/18 08:11 Resp 22 04/12/18 08:11 BP 112/57 04/12/18 08:11 Pulse Ox 100 04/12/18 08:21 - Physical Examination General: Other (nonverbal) HEENT: Positive: PERRL Neck: Positive: neck supple Cardiac: Positive: irregularly irregular, S1/S2 Lungs: Positive: Decreased Breath Sounds Neuro: Positive: Other (CLYDE) Skin: Negative: Rash, Wound Musculoskeletal: No Pain Extremities: Absent: edema - Labs and Meds CBC 04/12/18 Range/Units 09:03 WBC 9.8 (4.5-11.0) K/mm3 RBC 3.02 L (3.65-5.03) M/mm3 Hgb 8.8 L (10.1-14.3) gm/dl Hct 27.2 L (30.3-42.9) % Plt Count 168 (140-440) K/mm3 Lymph # 1.1 L (1.2-5.4) K/mm3 [place] # 0.5 (0.0-0.8) K/mm3 Eos # 0.2 (0.0-0.4) K/mm3 Baso # 0.0 (0.0-0.1) K/mm3 Comprehensive Metabolic Panel 04/12/18 Range/Units 09:03 Sodium 141 (137-145) mmol/L Potassium 3.2 L D (3.6-5.0) mmol/L Chloride 115.3 H (98-107) mmol/L Carbon Dioxide 14 L (22-30) mmol/L BUN 11 (7-17) mg/dL Creatinine 0.6 L (0.7-1.2) mg/dL Glucose 118 H (65-100) mg/dL Calcium 6.9 L (8.4-10.2) mg/dL - Imaging and Cardiology EKG: report reviewed, image reviewed Echo: report reviewed (ECHO 04/09/18: EF 50-55%, mild LVH. 07/2016 showed EF 50- 55%, mild LVH, abnormal diastolic function, LA mild to mod dilated, mild MR, mod TR, RVSP 41mmHg. ) - Allied health notes Allied health notes reviewed: nursing
--- NOTE | 2018-04-12 10:47 | Progress Note ---
Assessment and Plan -Severe sepsis with septic shock -UTI -Acute renal failure, vasomotor nephropathy, ischemic ATN -Lactic acidosis -Hyperglycemia -Hypernatremia -Acute on chronic encephalopathy( toxic, metabolic) -h/o CVA -Oropharyngeal dysphagia with PEG -Anemia -Admit ICU -Wean vasopressor support for MAP>65 -Discontinue IO -Volume resuscitation with 1L LR -Continue broad spectrum antibiotics,, follow cultures -De-escalate antibiotic therapy based on PETR and cultures reports -Mahajan catheter for accurate intake and output monitoring in this critically ill patient on vasopressor support with newly diagnosed ITZEL in the setting of severe sepsis and septic shock -Re-assess need for mahajan catheter in the next 24 hours -Will discontinue femoral CVC in the next 24 hours and assess need for ongoing CVC access -Free water flushes via PEG tube for treatment of severe hypernatremia -PT/OT to evaluate -Nutritional consult for tube feeding -Aspiration precautions -Adjust all medications for CrCl/GFR. Avoid nephrotoxic agents -Accuchecks with glycemic control. Target glucose 140-180 mg/dL -VTE prophylaxis -Mobility program for pressure ulcer prevention -Aspiration precautions FULL CODE CONDITION: CRITICAL PROGNOSIS: GUARDED The high probability of a clinically significant, sudden or life-threatening deterioration of the [respiratory, cardiovascular, renal] system(s) required my full and direct attention, intervention and personal management. The aggregate critical care time was [75] minutes without overlap. Time includes spent on; [x] Data Review and interpretation [x] Patient assessment and monitoring of vital signs [x] Documentation [x] Medication orders and management Subjective Date of service: 04/12/18 Principal diagnosis: Severe sepsis with shock; UTI; ITZEL; Hypernatremia Objective Vital Signs - 12hr 04/11/18 04/11/18 04/11/18 22:51 23:00 23:11 Temperature Pulse Rate 95 H 95 H 92 H Pulse Rate [ From Monitor] Respiratory 26 H 26 H 26 H Rate Blood Pressure 98/65 110/59 110/59 O2 Sat by Pulse 100 100 100 Oximetry 04/11/18 04/11/18 04/11/18 23:21 23:31 23:32 Temperature 100.1 F H Pulse Rate 94 H 101 H Pulse Rate [ From Monitor] Respiratory 28 H 26 H Rate Blood Pressure 110/59 110/59 O2 Sat by Pulse 100 100 Oximetry 04/11/18 04/11/18 04/11/18 23:41 23:43 23:51 Temperature Pulse Rate 95 H 101 H 101 H Pulse Rate [ From Monitor] Respiratory 22 25 H 25 H Rate Blood Pressure 110/59 110/59 110/59 O2 Sat by Pulse 100 100 100 Oximetry 04/12/18 04/12/18 04/12/18 00:00 00:11 00:21 Temperature Pulse Rate 101 H 88 92 H Pulse Rate [ 88 From Monitor] Respiratory 19 20 22 Rate Blood Pressure 115/62 110/59 110/59 O2 Sat by Pulse 99 100 100 Oximetry 04/12/18 04/12/18 04/12/18 00:31 00:41 00:51 Temperature Pulse Rate 99 H 99 H 98 H Pulse Rate [ From Monitor] Respiratory 18 22 25 H Rate Blood Pressure 110/59 110/59 110/59 O2 Sat by Pulse 100 100 99 Oximetry 04/12/18 04/12/18 04/12/18 01:00 01:11 01:20 Temperature Pulse Rate 90 96 H 99 H Pulse Rate [ From Monitor] Respiratory 21 23 22 Rate Blood Pressure 115/52 115/52 115/52 O2 Sat by Pulse 100 100 99 Oximetry 04/12/18 04/12/18 04/12/18 01:31 01:41 01:51 Temperature Pulse Rate 99 H 90 95 H Pulse Rate [ From Monitor] Respiratory 21 21 22 Rate Blood Pressure 115/52 115/52 115/52 O2 Sat by Pulse 98 99 100 Oximetry 04/12/18 04/12/18 04/12/18 02:00 02:11 02:21 Temperature Pulse Rate 95 H 92 H 92 H Pulse Rate [ From Monitor] Respiratory 22 24 23 Rate Blood Pressure 130/66 130/66 130/66 O2 Sat by Pulse 100 98 98 Oximetry 04/12/18 04/12/18 04/12/18 02:31 02:41 02:51 Temperature Pulse Rate 85 91 H 92 H Pulse Rate [ From Monitor] Respiratory 23 21 22 Rate Blood Pressure 130/66 130/66 130/66 O2 Sat by Pulse 99 98 100 Oximetry 04/12/18 04/12/18 04/12/18 03:00 03:11 03:21 Temperature Pulse Rate 90 79 94 H Pulse Rate [ From Monitor] Respiratory 20 23 24 Rate Blood Pressure 131/62 130/66 130/66 O2 Sat by Pulse 99 97 99 Oximetry 04/12/18 04/12/18 04/12/18 03:31 03:41 03:51 Temperature Pulse Rate 99 H 93 H 96 H Pulse Rate [ From Monitor] Respiratory 26 H 26 H 26 H Rate Blood Pressure 130/66 130/66 130/66 O2 Sat by Pulse 99 99 100 Oximetry 04/12/18 04/12/18 04/12/18 04:00 04:01 04:11 Temperature 100.1 F H Pulse Rate 98 H 96 H 98 H Pulse Rate [ 84 From Monitor] Respiratory 22 25 H 23 Rate Blood Pressure 129/30 129/30 O2 Sat by Pulse 100 100 100 Oximetry 04/12/18 04/12/18 04/12/18 04:21 04:31 04:41 Temperature Pulse Rate 90 90 96 H Pulse Rate [ From Monitor] Respiratory 22 23 22 Rate Blood Pressure 129/30 129/30 129/30 O2 Sat by Pulse 100 100 99 Oximetry 04/12/18 04/12/18 04/12/18 04:51 05:01 05:11 Temperature Pulse Rate 91 H 114 H 111 H Pulse Rate [ From Monitor] Respiratory 23 27 H 24 Rate Blood Pressure 129/30 123/32 123/32 O2 Sat by Pulse 100 98 100 Oximetry 04/12/18 04/12/18 04/12/18 05:21 05:31 05:41 Temperature Pulse Rate 105 H 105 H 110 H Pulse Rate [ From Monitor] Respiratory 26 H 20 22 Rate Blood Pressure 123/32 123/32 123/32 O2 Sat by Pulse 100 99 99 Oximetry 04/12/18 04/12/18 04/12/18 05:51 06:00 06:11 Temperature Pulse Rate 95 H 97 H 89 Pulse Rate [ From Monitor] Respiratory 26 H 24 22 Rate Blood Pressure 123/32 115/69 115/69 O2 Sat by Pulse 100 97 100 Oximetry 04/12/18 04/12/18 04/12/18 06:21 06:31 06:41 Temperature Pulse Rate 97 H 94 H 91 H Pulse Rate [ From Monitor] Respiratory 24 22 22 Rate Blood Pressure 115/69 115/69 115/69 O2 Sat by Pulse 100 99 100 Oximetry 04/12/18 04/12/18 04/12/18 06:51 07:00 07:11 Temperature Pulse Rate 101 H 90 91 H Pulse Rate [ From Monitor] Respiratory 25 H 23 21 Rate Blood Pressure 115/69 115/69 113/62 O2 Sat by Pulse 100 100 100 Oximetry 04/12/18 04/12/18 04/12/18 07:21 07:31 07:41 Temperature Pulse Rate 92 H 96 H 93 H Pulse Rate [ From Monitor] Respiratory 22 24 24 Rate Blood Pressure 115/69 115/69 115/69 O2 Sat by Pulse 98 100 98 Oximetry 04/12/18 04/12/18 04/12/18 07:51 08:00 08:11 Temperature Pulse Rate 91 H 85 85 Pulse Rate [ From Monitor] Respiratory 22 21 22 Rate Blood Pressure 115/69 112/57 112/57 O2 Sat by Pulse 100 100 100 Oximetry 04/12/18 08:21 Temperature Pulse Rate Pulse Rate [ From Monitor] Respiratory Rate Blood Pressure O2 Sat by Pulse 100 Oximetry Constitutional: lethargic, appears uncomfortable, other (elderly looking AF, normocephalic and atraumatic without overt respiratory distress) Eyes: non-icteric ENT: oropharynx dry, other Neck: supple, no lymphadenopathy, no JVD Effort: normal Ascultation: Bilateral: clear, diminished breath sounds Percussion: Bilateral: not dull Cardiovascular: regular rate and rhythm, other (Tachycardia, S1,S2, no murmurs, gallops or rubs) Gastrointestinal: normoactive bowel sounds, soft, non-tender, non-distended, other (no guarding, PEG in place, Mahajan cahter with tea colored urine in place) Integumentary: other (loss of skin tugor) Extremities: no cyanosis, no edema, pink and warm, pulses normal, no ischemia or petechiae Neurologic: pupils equal and round, unable to assess (otherwise) Psychiatric: other (unable to assess) CBC and BMP: 04/12/18 09:03 04/12/18 09:03 ABG, PT/INR, D-dimer: ABG POC ABG pH 7.466 (7.35-7.45) H 04/09/18 12:42 POC ABG pCO2 24.6 (35-45) L 04/09/18 12:42 POC ABG pO2 120 (80-105) H 04/09/18 12:42 POC ABG HCO3 17.7 04/09/18 12:42 POC ABG Total CO2 18 04/09/18 12:42 POC ABG O2 Sat 99 04/09/18 12:42 Abnormal lab findings: Abnormal Labs 04/08/18 04/08/18 04/08/18 02:50 02:50 02:50 WBC 16.5 H RBC 3.37 L Hgb 9.7 L Hct RDW 17.6 H Lymph % (Auto) 11.0 L Lymph # [place] # 1.0 H Seg Neutrophils % 82.7 H Seg Neuts % (Manual) Lymphocytes % (Manual) Seg Neutrophils # 13.7 H Seg Neutrophils # Man Lymphocytes # (Manual) POC ABG pH POC ABG pCO2 POC ABG pO2 Sodium 152 H Potassium Chloride 108.9 H Carbon Dioxide BUN 102 H Creatinine 1.7 H Glucose 291 H POC Glucose Lactic Acid 2.70 H* Calcium 7.8 L Phosphorus Magnesium AST 74 H ALT 96 H Total Creatine Kinase CK-MB (CK-2) Troponin T 0.068 H Total Protein 6.2 L Albumin 2.7 L Triglycerides 247 H HDL Cholesterol 36 L PTH Intact Urine WBC (Auto) Urine Creatinine Urine Total Protein Crossmatch 04/08/18 04/08/18 04/08/18 02:50 02:57 03:44 WBC RBC Hgb Hct RDW Lymph % (Auto) Lymph # [place] # Seg Neutrophils % Seg Neuts % (Manual) Lymphocytes % (Manual) Seg Neutrophils # Seg Neutrophils # Man Lymphocytes # (Manual) POC ABG pH POC ABG pCO2 POC ABG pO2 Sodium Potassium Chloride Carbon Dioxide BUN Creatinine Glucose POC Glucose 289 H Lactic Acid Calcium Phosphorus Magnesium AST ALT Total Creatine Kinase CK-MB (CK-2) Troponin T Total Protein Albumin Triglycerides HDL Cholesterol PTH Intact Urine WBC (Auto) > 182.0 H Urine Creatinine Urine Total Protein Crossmatch See Detail 04/08/18 04/08/18 04/08/18 04:30 05:59 05:59 WBC RBC Hgb Hct RDW Lymph % (Auto) Lymph # [place] # Seg Neutrophils % Seg Neuts % (Manual) Lymphocytes % (Manual) Seg Neutrophils # Seg Neutrophils # Man Lymphocytes # (Manual) POC ABG pH POC ABG pCO2 POC ABG pO2 Sodium Potassium Chloride Carbon Dioxide BUN Creatinine Glucose POC Glucose Lactic Acid 3.50 H* 2.70 H* Calcium Phosphorus Magnesium AST ALT Total Creatine Kinase 1203 H CK-MB (CK-2) 4.7 H Troponin T 0.042 H D Total Protein Albumin Triglycerides HDL Cholesterol PTH Intact Urine WBC (Auto) Urine Creatinine Urine Total Protein Crossmatch 04/08/18 04/08/18 04/08/18 06:04 07:06 10:53 WBC RBC Hgb Hct RDW Lymph % (Auto) Lymph # [place] # Seg Neutrophils % Seg Neuts % (Manual) Lymphocytes % (Manual) Seg Neutrophils # Seg Neutrophils # Man Lymphocytes # (Manual) POC ABG pH POC ABG pCO2 POC ABG pO2 Sodium Potassium Chloride Carbon Dioxide BUN Creatinine Glucose POC Glucose 323 H Lactic Acid 2.40 H* 2.30 H* Calcium Phosphorus Magnesium AST ALT Total Creatine Kinase CK-MB (CK-2) Troponin T Total Protein Albumin Triglycerides HDL Cholesterol PTH Intact Urine WBC (Auto) Urine Creatinine Urine Total Protein Crossmatch 04/08/18 04/08/18 04/08/18 12:07 12:46 13:17 WBC RBC Hgb Hct RDW Lymph % (Auto) Lymph # [place] # Seg Neutrophils % Seg Neuts % (Manual) Lymphocytes % (Manual) Seg Neutrophils # Seg Neutrophils # Man Lymphocytes # (Manual) POC ABG pH POC ABG pCO2 POC ABG pO2 Sodium Potassium Chloride Carbon Dioxide BUN Creatinine Glucose POC Glucose 318 H 335 H Lactic Acid Calcium Phosphorus Magnesium AST ALT Total Creatine Kinase 1194 H CK-MB (CK-2) 5.1 H Troponin T Total Protein Albumin Triglycerides HDL Cholesterol PTH Intact Urine WBC (Auto) Urine Creatinine Urine Total Protein Crossmatch 04/08/18 04/08/18 04/08/18 13:19 14:32 15:18 WBC RBC Hgb Hct RDW Lymph % (Auto) Lymph # [place] # Seg Neutrophils % Seg Neuts % (Manual) Lymphocytes % (Manual) Seg Neutrophils # Seg Neutrophils # Man Lymphocytes # (Manual) POC ABG pH POC ABG pCO2 POC ABG pO2 Sodium Potassium Chloride Carbon Dioxide BUN Creatinine Glucose POC Glucose 291 H Lactic Acid 2.60 H* Calcium Phosphorus Magnesium AST ALT Total Creatine Kinase CK-MB (CK-2) Troponin T Total Protein Albumin Triglycerides HDL Cholesterol PTH Intact Urine WBC (Auto) Urine Creatinine 24.0 H Urine Total Protein 57 H Crossmatch 04/08/18 04/08/18 04/08/18 15:40 16:54 17:52 WBC RBC Hgb Hct RDW Lymph % (Auto) Lymph # [place] # Seg Neutrophils % Seg Neuts % (Manual) Lymphocytes % (Manual) Seg Neutrophils # Seg Neutrophils # Man Lymphocytes # (Manual) POC ABG pH POC ABG pCO2 POC ABG pO2 Sodium Potassium Chloride Carbon Dioxide BUN Creatinine Glucose POC Glucose 280 H 226 H Lactic Acid 3.10 H* Calcium Phosphorus Magnesium AST ALT Total Creatine Kinase CK-MB (CK-2) Troponin T Total Protein Albumin Triglycerides HDL Cholesterol PTH Intact Urine WBC (Auto) Urine Creatinine Urine Total Protein Crossmatch 04/08/18 04/08/18 04/08/18 18:35 19:18 19:57 WBC RBC Hgb Hct RDW Lymph % (Auto) Lymph # [place] # Seg Neutrophils % Seg Neuts % (Manual) Lymphocytes % (Manual) Seg Neutrophils # Seg Neutrophils # Man Lymphocytes # (Manual) POC ABG pH POC ABG pCO2 POC ABG pO2 Sodium Potassium Chloride Carbon Dioxide BUN Creatinine Glucose POC Glucose 247 H Lactic Acid 2.60 H* 2.60 H* Calcium Phosphorus Magnesium AST ALT Total Creatine Kinase CK-MB (CK-2) Troponin T Total Protein Albumin Triglycerides HDL Cholesterol PTH Intact Urine WBC (Auto) Urine Creatinine Urine Total Protein Crossmatch 04/08/18 04/08/18 04/09/18 21:41 22:56 00:27 WBC 14.5 H RBC 2.78 L Hgb 8.1 L Hct 26.4 L RDW 16.7 H Lymph % (Auto) Lymph # [place] # Seg Neutrophils % Seg Neuts % (Manual) 89.0 H Lymphocytes % (Manual) 5.0 L Seg Neutrophils # Seg Neutrophils # Man 12.9 H Lymphocytes # (Manual) 0.7 L POC ABG pH POC ABG pCO2 POC ABG pO2 Sodium Potassium Chloride Carbon Dioxide BUN Creatinine Glucose POC Glucose 164 H Lactic Acid 3.80 H* Calcium Phosphorus Magnesium AST ALT Total Creatine Kinase CK-MB (CK-2) Troponin T Total Protein Albumin Triglycerides HDL Cholesterol PTH Intact Urine WBC (Auto) Urine Creatinine Urine Total Protein Crossmatch 04/09/18 04/09/18 04/09/18 00:27 02:54 05:51 WBC RBC Hgb Hct RDW Lymph % (Auto) Lymph # [place] # Seg Neutrophils % Seg Neuts % (Manual) Lymphocytes % (Manual) Seg Neutrophils # Seg Neutrophils # Man Lymphocytes # (Manual) POC ABG pH POC ABG pCO2 POC ABG pO2 Sodium 149 H Potassium Chloride 118.4 H Carbon Dioxide BUN 38 H Creatinine 0.6 L D Glucose 153 H POC Glucose 151 H 203 H Lactic Acid Calcium 6.6 L D Phosphorus Magnesium AST ALT Total Creatine Kinase CK-MB (CK-2) Troponin T Total Protein Albumin Triglycerides HDL Cholesterol PTH Intact Urine WBC (Auto) Urine Creatinine Urine Total Protein Crossmatch 04/09/18 04/09/18 04/09/18 06:00 06:00 10:18 WBC 13.2 H RBC 2.84 L Hgb 8.2 L Hct 27.1 L RDW 17.2 H Lymph % (Auto) 8.5 L Lymph # 1.1 L [place] # Seg Neutrophils % 87.2 H Seg Neuts % (Manual) Lymphocytes % (Manual) Seg Neutrophils # 11.5 H Seg Neutrophils # Man Lymphocytes # (Manual) POC ABG pH POC ABG pCO2 POC ABG pO2 Sodium 152 H Potassium Chloride 119.6 H Carbon Dioxide 21 L BUN 33 H Creatinine Glucose 187 H POC Glucose 217 H Lactic Acid Calcium 6.8 L Phosphorus Magnesium AST ALT Total Creatine Kinase CK-MB (CK-2) Troponin T Total Protein Albumin Triglycerides HDL Cholesterol PTH Intact Urine WBC (Auto) Urine Creatinine Urine Total Protein Crossmatch 04/09/18 04/09/18 04/09/18 12:42 16:50 17:40 WBC RBC Hgb Hct RDW Lymph % (Auto) Lymph # [place] # Seg Neutrophils % Seg Neuts % (Manual) Lymphocytes % (Manual) Seg Neutrophils # Seg Neutrophils # Man Lymphocytes # (Manual) POC ABG pH 7.466 H POC ABG pCO2 24.6 L POC ABG pO2 120 H Sodium Potassium Chloride Carbon Dioxide BUN Creatinine Glucose POC Glucose 244 H Lactic Acid Calcium Phosphorus Magnesium 2.60 H AST ALT Total Creatine Kinase CK-MB (CK-2) Troponin T Total Protein Albumin Triglycerides HDL Cholesterol PTH Intact Urine WBC (Auto) Urine Creatinine Urine Total Protein Crossmatch 04/09/18 04/10/18 04/10/18 23:55 00:33 05:00 WBC RBC 2.47 L Hgb 7.3 L Hct 23.6 L RDW 16.9 H Lymph % (Auto) Lymph # 1.1 L [place] # Seg Neutrophils % 82.0 H Seg Neuts % (Manual) Lymphocytes % (Manual) Seg Neutrophils # Seg Neutrophils # Man Lymphocytes # (Manual) POC ABG pH POC ABG pCO2 POC ABG pO2 Sodium Potassium Chloride Carbon Dioxide BUN Creatinine Glucose POC Glucose 233 H 176 H Lactic Acid Calcium Phosphorus Magnesium AST ALT Total Creatine Kinase CK-MB (CK-2) Troponin T Total Protein Albumin Triglycerides HDL Cholesterol PTH Intact Urine WBC (Auto) Urine Creatinine Urine Total Protein Crossmatch 04/10/18 04/10/18 04/10/18 05:00 05:19 11:42 WBC RBC Hgb Hct RDW Lymph % (Auto) Lymph # [place] # Seg Neutrophils % Seg Neuts % (Manual) Lymphocytes % (Manual) Seg Neutrophils # Seg Neutrophils # Man Lymphocytes # (Manual) POC ABG pH POC ABG pCO2 POC ABG pO2 Sodium 150 H Potassium Chloride 120.0 H Carbon Dioxide 20 L BUN 21 H Creatinine 0.6 L Glucose 189 H POC Glucose 197 H 197 H Lactic Acid Calcium 6.5 L Phosphorus 2.10 L D Magnesium AST ALT Total Creatine Kinase CK-MB (CK-2) Troponin T Total Protein Albumin Triglycerides HDL Cholesterol PTH Intact Urine WBC (Auto) Urine Creatinine Urine Total Protein Crossmatch 04/10/18 04/10/18 04/11/18 17:32 20:38 00:24 WBC RBC Hgb Hct RDW Lymph % (Auto) Lymph # [place] # Seg Neutrophils % Seg Neuts % (Manual) Lymphocytes % (Manual) Seg Neutrophils # Seg Neutrophils # Man Lymphocytes # (Manual) POC ABG pH POC ABG pCO2 POC ABG pO2 Sodium Potassium Chloride Carbon Dioxide BUN Creatinine Glucose POC Glucose 114 H 107 H 110 H Lactic Acid Calcium Phosphorus Magnesium AST ALT Total Creatine Kinase CK-MB (CK-2) Troponin T Total Protein Albumin Triglycerides HDL Cholesterol PTH Intact Urine WBC (Auto) Urine Creatinine Urine Total Protein Crossmatch 04/11/18 04/11/18 04/11/18 04:01 05:19 05:19 WBC RBC 2.36 L Hgb 6.9 L Hct 22.5 L RDW 16.9 H Lymph % (Auto) 11.6 L Lymph # 1.0 L [place] # Seg Neutrophils % 84.4 H Seg Neuts % (Manual) Lymphocytes % (Manual) Seg Neutrophils # Seg Neutrophils # Man Lymphocytes # (Manual) POC ABG pH POC ABG pCO2 POC ABG pO2 Sodium Potassium Chloride 111.3 H Carbon Dioxide 15 L BUN Creatinine 0.6 L Glucose 137 H POC Glucose 137 H Lactic Acid Calcium 6.8 L Phosphorus 2.40 L Magnesium AST ALT Total Creatine Kinase CK-MB (CK-2) Troponin T Total Protein Albumin Triglycerides HDL Cholesterol PTH Intact Urine WBC (Auto) Urine Creatinine Urine Total Protein Crossmatch 04/11/18 04/11/18 04/11/18 05:19 05:19 08:21 WBC RBC Hgb Hct RDW Lymph % (Auto) Lymph # [place] # Seg Neutrophils % Seg Neuts % (Manual) Lymphocytes % (Manual) Seg Neutrophils # Seg Neutrophils # Man Lymphocytes # (Manual) POC ABG pH POC ABG pCO2 POC ABG pO2 Sodium Potassium Chloride Carbon Dioxide BUN Creatinine Glucose POC Glucose 159 H Lactic Acid Calcium Phosphorus Magnesium AST ALT Total Creatine Kinase CK-MB (CK-2) Troponin T Total Protein Albumin Triglycerides HDL Cholesterol PTH Intact 169.6 H Urine WBC (Auto) Urine Creatinine Urine Total Protein Crossmatch See Detail 04/11/18 04/11/18 04/11/18 12:41 16:05 21:11 WBC RBC Hgb Hct RDW Lymph % (Auto) Lymph # [place] # Seg Neutrophils % Seg Neuts % (Manual) Lymphocytes % (Manual) Seg Neutrophils # Seg Neutrophils # Man Lymphocytes # (Manual) POC ABG pH POC ABG pCO2 POC ABG pO2 Sodium Potassium Chloride Carbon Dioxide BUN Creatinine Glucose POC Glucose 180 H 165 H 133 H Lactic Acid Calcium Phosphorus Magnesium AST ALT Total Creatine Kinase CK-MB (CK-2) Troponin T Total Protein Albumin Triglycerides HDL Cholesterol PTH Intact Urine WBC (Auto) Urine Creatinine Urine Total Protein Crossmatch 04/12/18 04/12/18 04/12/18 00:15 03:51 06:39 WBC RBC Hgb Hct RDW Lymph % (Auto) Lymph # [place] # Seg Neutrophils % Seg Neuts % (Manual) Lymphocytes % (Manual) Seg Neutrophils # Seg Neutrophils # Man Lymphocytes # (Manual) POC ABG pH POC ABG pCO2 POC ABG pO2 Sodium Potassium Chloride Carbon Dioxide BUN Creatinine Glucose POC Glucose 106 H 134 H 121 H Lactic Acid Calcium Phosphorus Magnesium AST ALT Total Creatine Kinase CK-MB (CK-2) Troponin T Total Protein Albumin Triglycerides HDL Cholesterol PTH Intact Urine WBC (Auto) Urine Creatinine Urine Total Protein Crossmatch 04/12/18 04/12/18 09:03 09:03 WBC RBC 3.02 L Hgb 8.8 L Hct 27.2 L RDW 16.6 H Lymph % (Auto) 11.3 L Lymph # 1.1 L [place] # Seg Neutrophils % 80.8 H Seg Neuts % (Manual) Lymphocytes % (Manual) Seg Neutrophils # 7.9 H Seg Neutrophils # Man Lymphocytes # (Manual) POC ABG pH POC ABG pCO2 POC ABG pO2 Sodium Potassium 3.2 L D Chloride 115.3 H Carbon Dioxide 14 L BUN Creatinine 0.6 L Glucose 118 H POC Glucose Lactic Acid Calcium 6.9 L Phosphorus 1.90 L D Magnesium AST ALT Total Creatine Kinase CK-MB (CK-2) Troponin T Total Protein Albumin Triglycerides HDL Cholesterol PTH Intact Urine WBC (Auto) Urine Creatinine Urine Total Protein Crossmatch Allied health notes reviewed: nursing
--- NOTE | 2018-04-12 10:59 | Progress Note ---
Assessment and Plan septic shock secondary to urosepsis acute renal failure secondary to ischemic ATN hypernatremia secondary to low oral intake Anemia in chronic disease - ITZEL resolved - SPEP is pending for proteinuria - will d/c NS - cont bicitra and add potassium bcicarb 25 meq BID if able to tolerate PO - renally dose meds - strict I&O - daily weight Thank you for allowing to participate in Ms Cole's care Mike Herrera MD [phone] Subjective Date of service: 04/12/18 Principal diagnosis: Severe sepsis with shock; UTI; ITZEL; Hypernatremia Interval history: feels weak, family at beside Objective - Vital Signs Vital signs: Vital Signs - 12hr 04/11/18 04/11/18 04/11/18 23:00 23:11 23:21 Temperature Pulse Rate 95 H 92 H 94 H Pulse Rate [ From Monitor] Respiratory 26 H 26 H 28 H Rate Blood Pressure 110/59 110/59 110/59 O2 Sat by Pulse 100 100 100 Oximetry 04/11/18 04/11/18 04/11/18 23:31 23:32 23:41 Temperature 100.1 F H Pulse Rate 101 H 95 H Pulse Rate [ From Monitor] Respiratory 26 H 22 Rate Blood Pressure 110/59 110/59 O2 Sat by Pulse 100 100 Oximetry 04/11/18 04/11/18 04/12/18 23:43 23:51 00:00 Temperature Pulse Rate 101 H 101 H 101 H Pulse Rate [ 88 From Monitor] Respiratory 25 H 25 H 19 Rate Blood Pressure 110/59 110/59 115/62 O2 Sat by Pulse 100 100 99 Oximetry 04/12/18 04/12/18 04/12/18 00:11 00:21 00:31 Temperature Pulse Rate 88 92 H 99 H Pulse Rate [ From Monitor] Respiratory 20 22 18 Rate Blood Pressure 110/59 110/59 110/59 O2 Sat by Pulse 100 100 100 Oximetry 04/12/18 04/12/18 04/12/18 00:41 00:51 01:00 Temperature Pulse Rate 99 H 98 H 90 Pulse Rate [ From Monitor] Respiratory 22 25 H 21 Rate Blood Pressure 110/59 110/59 115/52 O2 Sat by Pulse 100 99 100 Oximetry 04/12/18 04/12/18 04/12/18 01:11 01:20 01:31 Temperature Pulse Rate 96 H 99 H 99 H Pulse Rate [ From Monitor] Respiratory 23 22 21 Rate Blood Pressure 115/52 115/52 115/52 O2 Sat by Pulse 100 99 98 Oximetry 04/12/18 04/12/18 04/12/18 01:41 01:51 02:00 Temperature Pulse Rate 90 95 H 95 H Pulse Rate [ From Monitor] Respiratory 21 22 22 Rate Blood Pressure 115/52 115/52 130/66 O2 Sat by Pulse 99 100 100 Oximetry 04/12/18 04/12/18 04/12/18 02:11 02:21 02:31 Temperature Pulse Rate 92 H 92 H 85 Pulse Rate [ From Monitor] Respiratory 24 23 23 Rate Blood Pressure 130/66 130/66 130/66 O2 Sat by Pulse 98 98 99 Oximetry 04/12/18 04/12/18 04/12/18 02:41 02:51 03:00 Temperature Pulse Rate 91 H 92 H 90 Pulse Rate [ From Monitor] Respiratory 21 22 20 Rate Blood Pressure 130/66 130/66 131/62 O2 Sat by Pulse 98 100 99 Oximetry 04/12/18 04/12/18 04/12/18 03:11 03:21 03:31 Temperature Pulse Rate 79 94 H 99 H Pulse Rate [ From Monitor] Respiratory 23 24 26 H Rate Blood Pressure 130/66 130/66 130/66 O2 Sat by Pulse 97 99 99 Oximetry 04/12/18 04/12/18 04/12/18 03:41 03:51 04:00 Temperature 100.1 F H Pulse Rate 93 H 96 H 98 H Pulse Rate [ 84 From Monitor] Respiratory 26 H 26 H 22 Rate Blood Pressure 130/66 130/66 O2 Sat by Pulse 99 100 100 Oximetry 04/12/18 04/12/18 04/12/18 04:01 04:11 04:21 Temperature Pulse Rate 96 H 98 H 90 Pulse Rate [ From Monitor] Respiratory 25 H 23 22 Rate Blood Pressure 129/30 129/30 129/30 O2 Sat by Pulse 100 100 100 Oximetry 04/12/18 04/12/18 04/12/18 04:31 04:41 04:51 Temperature Pulse Rate 90 96 H 91 H Pulse Rate [ From Monitor] Respiratory 23 22 23 Rate Blood Pressure 129/30 129/30 129/30 O2 Sat by Pulse 100 99 100 Oximetry 04/12/18 04/12/18 04/12/18 05:01 05:11 05:21 Temperature Pulse Rate 114 H 111 H 105 H Pulse Rate [ From Monitor] Respiratory 27 H 24 26 H Rate Blood Pressure 123/32 123/32 123/32 O2 Sat by Pulse 98 100 100 Oximetry 04/12/18 04/12/18 04/12/18 05:31 05:41 05:51 Temperature Pulse Rate 105 H 110 H 95 H Pulse Rate [ From Monitor] Respiratory 20 22 26 H Rate Blood Pressure 123/32 123/32 123/32 O2 Sat by Pulse 99 99 100 Oximetry 04/12/18 04/12/18 04/12/18 06:00 06:11 06:21 Temperature Pulse Rate 97 H 89 97 H Pulse Rate [ From Monitor] Respiratory 24 22 24 Rate Blood Pressure 115/69 115/69 115/69 O2 Sat by Pulse 97 100 100 Oximetry 04/12/18 04/12/18 04/12/18 06:31 06:41 06:51 Temperature Pulse Rate 94 H 91 H 101 H Pulse Rate [ From Monitor] Respiratory 22 22 25 H Rate Blood Pressure 115/69 115/69 115/69 O2 Sat by Pulse 99 100 100 Oximetry 04/12/18 04/12/18 04/12/18 07:00 07:11 07:21 Temperature Pulse Rate 90 91 H 92 H Pulse Rate [ From Monitor] Respiratory 23 21 22 Rate Blood Pressure 115/69 113/62 115/69 O2 Sat by Pulse 100 100 98 Oximetry 04/12/18 04/12/18 04/12/18 07:31 07:41 07:51 Temperature Pulse Rate 96 H 93 H 91 H Pulse Rate [ From Monitor] Respiratory 24 24 22 Rate Blood Pressure 115/69 115/69 115/69 O2 Sat by Pulse 100 98 100 Oximetry 04/12/18 04/12/18 04/12/18 08:00 08:11 08:21 Temperature Pulse Rate 85 85 Pulse Rate [ From Monitor] Respiratory 21 22 Rate Blood Pressure 112/57 112/57 O2 Sat by Pulse 100 100 100 Oximetry - General Appearance General appearance: well-developed, well-nourished EENT: ATNC, PERRL Neck: no JVD, no carotid bruit Respiratory: Present: Clear to Ascultation. Absent: Rales, Ronchi Cardiology: regular, S1S2 Gastrointestinal: normoactive bowel sounds, no tenderness, no distended Integumentary: no rash, warm and dry Neurologic: no focal deficit, no asterixis Musculoskeletal: other (no edema in BLE) Psychiatric: cooperative - Lab 04/12/18 09:03 04/12/18 09:03 Most recent lab results Calcium 6.9 mg/dL (8.4-10.2) L 04/12/18 09:03 Phosphorus 1.90 mg/dL (2.5-4.5) L D 04/12/18 09:03 Magnesium 2.60 mg/dL (1.7-2.3) H 04/09/18 16:50 Urine Creatinine 24.0 mg/dL (0.1-20.0) H 04/08/18 15:18 Urine Sodium 60 mmol/L 04/08/18 15:43 Urine Total Protein 57 mg/dL (5-11.8) H 04/08/18 15:18 Medications & Allergies - Medications Allergies/Adverse Reactions: Allergies No Known Allergies Allergy (Verified 04/08/18 02:43) Home Medications: Home Medications Medication Instructions Recorded Confirmed Last Taken Type Docusate Sodium [Colace CAP] 100 mg PO BID PRN 06/18/16 04/08/18 04/07/18 History Apixaban [Eliquis] 2.5 mg PO Q12HR #60 tablet 08/12/16 04/08/18 04/07/18 Rx Levothyroxine [Synthroid] 75 mcg PO DAILY@0600 #30 tablet 08/12/16 04/08/18 04/07/18 Rx Simvastatin (Nf) [Zocor TAB] 40 mg PO QHS #30 tablet 08/12/16 04/08/18 04/07/18 Rx Acetaminophen [Tylenol] 325 mg PO PRN 04/08/18 04/08/18 04/07/18 History Digoxin [Lanoxin] 0.125 mg PO DAILY 04/08/18 04/08/18 04/07/18 History Insulin Detemir [Levemir Flextouch] 100 unit SQ DAILY 04/08/18 04/08/18 04/07/18 History Lisinopril [Prinivil] 5 mg PO DAILY 04/08/18 04/08/18 04/07/18 History Metoclopramide HCl 5 mg PO Q6HR 04/08/18 04/08/1819 History Metoprolol Tartrate 25 mg PO TID 04/08/18 04/08/18 04/07/18 History Potassium Chloride [Klor-Con] 20 meq PO DAILY 04/08/18 04/08/18 04/07/18 History Simvastatin 40 mg PO DAILY 04/08/18 04/08/18 04/07/18 History Torsemide [Demadex] 20 mg PO DAILY 04/08/18 04/08/18 04/07/18 History Active Medications: Generic Name Dose Route Start Last Admin Trade Name Freq PRN Reason Stop Dose Admin Acetaminophen 650 mg 04/08/18 03:22 04/08/18 03:00 Tylenol FEEDTUBE 650 mg Q6H PRN Administration Pain, Mild (1-3) Lipase/Protease/Amylase 1 each 04/11/18 12:[address] 10,500 Unit FEEDTUBE PRN PRN For Clogged Feeding Tube Citric Acid/Sodium Citrate 15 ml 04/11/18 14:00 04/11/18 20:13 Bicitra PO 15 ml TID JUNIOR Administration Docusate Sodium 100 mg 04/08/18 05:04 Colace PO BID PRN Constipation Donepezil HCl 5 mg 04/08/18 10:00 04/11/18 09:47 Aricept PO 5 mg QDAY JUNIOR Administration Ferrous Sulfate 325 mg 04/08/18 10:00 04/11/18 09:47 Feosol PO 325 mg QDAY JUNIOR Administration Norepinephrine 4 mg in 250 mls @ 7.5 mls/hr 04/09/18 12:00 04/09/18 18:35 Levophed Drip 4 Mg/Ns 250 Ml IV 0 mcg/min TITR JUNIOR 0 mls/hr Titration Protocol 2 MCG/MIN Pantoprazole Sodium 80 mg/ 100 mls @ 10 mls/hr 04/10/18 19:00 Sodium Chloride IV DIRECT JUNIOR 8 MG/HR Cefepime HCl 1 gm in 100 mls @ 200 mls/hr 04/12/18 14:00 Maxipime/Ns 1 Gm/100 Ml IV Q8HR JUNIOR Protocol Potassium Phosphate 40 mmol/ 513.3333 mls @ 83 mls/hr 04/12/18 11:30 Sodium Chloride IV 04/12/18 17:41 ONCE ONE Levothyroxine Sodium 75 mcg 04/08/18 06:00 04/12/18 05:16 Synthroid PO 75 mcg DAILY@0600 [facility] Administration Midodrine 5 mg 04/10/18 16:00 04/12/18 07:32 Proamatine PO Not Given TID@0800,1200,1600 [facility] Ondansetron HCl 4 mg 04/08/18 04:59 Zofran IV Q8H PRN Nausea And Vomiting Potassium Bicarbonate 25 meq 04/12/18 11:00 Klor-Con PO BID [facility] Pravastatin Sodium 80 mg 04/08/18 22:00 04/11/18 21:33 Pravachol PO 80 mg QHS [facility] Administration Simple Syrup 15 ml 04/11/18 12:00 Simple Syrup FEEDTUBE PRN PRN Hypoglycemia Simple Syrup 30 ml 04/11/18 11:30 Simple Syrup FEEDTUBE PRN PRN Hypoglycemia
[2018-04-12] MEDS ORDERED: KPHOS 40 MMOL in NACL 0.9% 500 ML 500 ML IV ONE (11:30)
[2018-04-12] MEDS ORDERED: ANCEF/STERILE WATER 2 GM/20 ML 2 GM/20 ML SYRINGE IV ONE (11:35)
[2018-04-12] MEDS ORDERED: XYLOCAINE 2% INFILTRATI ONE (11:35)
[2018-04-12] MEDS ORDERED: HEPARIN/NS 5000 UNIT/500ML(CATH LAB) 500 ML IR ONE (11:35)
[2018-04-12] MEDS ORDERED: NACL 0.9% 250ML 250 ML ONE (11:51)
--- NOTE | 2018-04-12 12:42 | Operative Report ---
Operative Report Operative Report: EXAM: 1. Ultrasound-guided puncture of the right internal jugular vein 2. Fluoroscopic-guided placement of a right internal jugular tunneled non- cuffed smallbore dual-lumen catheter. DATE: 04/12/18 INDICATION: Inability to place PICC line. Need for central access. Critically ill. MEDICATIONS: Please see nursing report for full details. DEVICES: 5 [place] dual-lumen power PICC catheter MILKING MACHINE MECHANIC: MELISSA LOCKWOOD MD CONTRAST: None PROCEDURE: The risks, benefits, and alternatives were discussed and informed consent was obtained. The patient was transported to the angiography suite in satisfactory/stable condition and was transported onto the angiography table. The patient's right internal jugular vein was assessed with ultrasound and determined to be patent prior to procedure. The patient was prepped and draped in a sterile fashion. The puncture site was anesthetized. Under sonographic guidance, the right internal jugular vein was punctured with a 21-gauge micropuncture needle and a 0.018 inch wire was advanced into the inferior vena cava. A suitable exit site was identified on the patient's chest inferior and lateral to the venotomy. The site was anesthetized with local anesthetic and the track was anesthetized. Dermatotomy was made. The 5 [place] dual-lumen smallbore catheter was tunneled between the dermatotomy to the venotomy with the assistance of the peel-away sheath, micropuncture needle, and 0.018 inch wire. Over 0.018 inch wire, the transitional dilator was exchanged for a 5 [place] peel-away sheath. The wire was used to payton intravascular distance and removed. The catheter was cut to appropriate size. The catheter was advanced through the peel-away sheath and positioned centrally under fluoroscopic guidance. The peel-away sheath was removed. 4-0 Vicryl suture was used to close the venotomy and Dermabond was then applied. 3-0 Ethilon suture was used to secure the catheter at the dermatotomy. The catheter was charged with heparin flush. Biopatch and sterile dressing applied. The patient was transferred from the angiography suite back to the floor in st able condition. FINDINGS: 1. Excellent flow was obtained through the dual lumen smallbore tunneled catheter. 2. The catheter tip is in the right atrium. IMPRESSION: 1. Successful ultrasound and fluoroscopically guided placement of a right internal jugular tunneled non-cuffed dual-lumen catheter.
[2018-04-12] MEDS: PEPCID PO SCH (12:58)
[2018-04-12] MEDS: MAXIPIME/NS 1 GM/100 ML 1 GM/100 ML BAG IV SCH ×3 (12:59→22:19)
[2018-04-12] MEDS: FEOSOL PO SCH (14:21)
[2018-04-12] MEDS: KLOR-CON PO SCH ×2 (14:21→22:15)
[2018-04-12] MEDS: TYLENOL FEEDTUBE PRN (14:22)
[2018-04-12] MEDS: ARICEPT PO SCH (14:22)
[2018-04-12] MEDS: BICITRA PO SCH ×3 (14:22→20:01)
--- NOTE | 2018-04-12 14:44 | Progress Note ---
Assessment and Plan Assessment and plan: 87-year-old woman who presents from [facility] with low blood pressure and fever. 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, aphasia , non verbal, sp PEG, bed bound, does not respond or move at baseline, only opens eyes, history of CHF, diabetes, vascular dementia, anemia, hypertension, atrial fibrillation cxr; no infiltrate Diagnoses Sepsis, source unclear at this time, while urine cultures are negative, the source is most likely a UTI Hypernatremia Dehydration Elevated troponin level Septic shock ITZEL -vasomotor nephropathy Afib DM Acute blood loss anemia GI bleed Hypokalemia hypophospatemia Microbiology Stool culture is negative, stool leukocytes negative, stool cryptosporidium negative, Giardia negative Blood cultures negative 4 days Throat culture positive for group A strep Urine culture negative Plan ID consult appreciated, fup cultures ITZEL resolved hypotonic IVF, and free water via G tube, Na now wnl optimize insulins dc eliquis, was transfused, on PPI electrolytes were repleted, repeat levels tomorrow DVT ppx- scds CCT 33 minutes Case dw son at bedside Dispo; likely dc back to [place] on Sunday when abx plan is finalized per ID History Interval history: Review of systems Constitutional: No fevers, no malaise, no joint pains CVS: No chest pain, no orthopnea, no dyspnea on exertion, no pedal edema GI: no more episodes of melena Respiratory: No shortness of breath, no wheezing, no coughing Hospitalist Physical - Physical exam Narrative exam: General.: no distress HEENT: Moist mucous membranes, extraocular muscles intact, no lymphadenopathy Neck: supple Cardiac: S1-S2 heard Lungs: clear to auscultation bilaterally Abdomen: soft , nontender, nondistended, bowel sounds positive Extremities: no edema clubbing or cyanosis Skin: no rash or lesions Neurologic: opens eyes, no spontaneous movements, does not track, does not obey commands or respond, non verbal Psych: non responsive, which is her baseline - Constitutional Vitals: Temp Pulse Resp BP Pulse Ox 100 F H 99 H 22 120/66 99 04/12/18 08:00 04/12/18 12:00 04/12/18 11:11 04/12/18 11:11 04/12/18 11:11 General appearance: Present: other (lethargic, nonverbal) Results - Labs CBC & Chem 7: 04/12/18 09:03 04/12/18 09:03 Labs: Laboratory Last Values WBC 9.8 K/mm3 (4.5-11.0) 04/12/18 09:03 RBC 3.02 M/mm3 (3.65-5.03) L 04/12/18 09:03 Hgb 8.8 gm/dl (10.1-14.3) L 04/12/18 09:03 Hct 27.2 % (30.3-42.9) L 04/12/18 09:03 MCV 90 fl (79-97) 04/12/18 09:03 MCH 29 pg (28-32) 04/12/18 09:03 MCHC 33 % (30-34) 04/12/18 09:03 RDW 16.6 % (13.2-15.2) H 04/12/18 09:03 Plt Count 168 K/mm3 (140-440) 04/12/18 09:03 Lymph % (Auto) 11.3 % (13.4-35.0) L 04/12/18 09:03 [place] % (Auto) 5.2 % (0.0-7.3) 04/12/18 09:03 Eos % (Auto) 2.3 % (0.0-4.3) 04/12/18 09:03 Baso % (Auto) 0.4 % (0.0-1.8) 04/12/18 09:03 Lymph # 1.1 K/mm3 (1.2-5.4) L 04/12/18 09:03 [place] # 0.5 K/mm3 (0.0-0.8) 04/12/18 09:03 Eos # 0.2 K/mm3 (0.0-0.4) 04/12/18 09:03 Baso # 0.0 K/mm3 (0.0-0.1) 04/12/18 09:03 Add Manual Diff Complete 04/09/18 00:27 Total Counted 100 04/09/18 00:27 Seg Neutrophils % 80.8 % (40.0-70.0) H 04/12/18 09:03 Seg Neuts % (Manual) 89.0 % (40.0-70.0) H 04/09/18 00:27 Band Neutrophils % 6.0 % 04/09/18 00:27 Lymphocytes % (Manual) 5.0 % (13.4-35.0) L 04/09/18 00:27 Reactive Lymphs % (Man) 0 % 04/09/18 00:27 Monocytes % (Manual) 0 % (0.0-7.3) 04/09/18 00:27 Eosinophils % (Manual) 0 % (0.0-4.3) 04/09/18 00:27 Basophils % (Manual) 0 % (0.0-1.8) 04/09/18 00:27 Metamyelocytes % 0 % 04/09/18 00: Myelocytes % 0 % 04/09/18 00:27 Promyelocytes % 0 % 04/09/18 00:27 Blast Cells % 0 % 04/09/18 00:27 Nucleated RBC % Not Reportable 04/09/18 00:27 Seg Neutrophils # 7.9 K/mm3 (1.8-7.7) H 04/12/18 09:03 Seg Neutrophils # Man 12.9 K/mm3 (1.8-7.7) H 04/09/18 00:27 Band Neutrophils # 0.9 K/mm3 04/09/18 00:27 Lymphocytes # (Manual) 0.7 K/mm3 (1.2-5.4) L 04/09/18 00:27 Abs React Lymphs (Man) 0.0 K/mm3 04/09/18 00:27 Monocytes # (Manual) 0.0 K/mm3 (0.0-0.8) 04/09/18 00:27 Eosinophils # (Manual) 0.0 K/mm3 (0.0-0.4) 04/09/18 00:27 Basophils # (Manual) 0.0 K/mm3 (0.0-0.1) 04/09/18 00:27 Metamyelocytes # 0.0 K/mm3 04/09/18 00:27 Myelocytes # 0.0 K/mm3 04/09/18 00:27 Promyelocytes # 0.0 K/mm3 04/09/18 00:27 Blast Cells # 0.0 K/mm3 04/09/18 00:27 WBC Morphology Not Reportable 04/09/18 00:27 Hypersegmented Neuts Not Reportable 04/09/18 00:27 Hyposegmented Neuts Not Reportable 04/09/18 00:27 Hypogranular Neuts Not Reportable 04/09/18 00:27 Smudge Cells Not Reportable 04/09/18 00:27 Toxic Granulation Not Reportable 04/09/18 00:27 Toxic Vacuolation Not Reportable 04/09/18 00:27 Dohle Bodies Not Reportable 04/09/18 00:27 Pelger-Huet Anomaly Not Reportable 04/09/18 00:27 Rene Rods Not Reportable 04/09/18 00:27 Platelet Estimate Consistent w auto 04/09/18 00:27 Clumped Platelets Not Reportable 04/09/18 00:27 Plt Clumps, EDTA Not Reportable 04/09/18 00:27 Large Platelets Not Reportable 04/09/18 00:27 Giant Platelets Not Reportable 04/09/18 00:27 Platelet Satelliting Not Reportable 04/09/18 00:27 Plt Morphology Comment Not Reportable 04/09/18 00:27 RBC Morphology Not Reportable 04/09/18 00:27 Dimorphic RBCs Not Reportable 04/09/18 00:27 Polychromasia Not Reportable 04/09/18 00:27 Hypochromasia 1+ 04/09/18 00:27 Poikilocytosis Not Reportable 04/09/18 00:27 Anisocytosis 1+ 04/09/18 00:27 Microcytosis Not Reportable 04/09/18 00:27 Macrocytosis Not Reportable 04/09/18 00:27 Spherocytes Not Reportable 04/09/18 00:27 Pappenheimer Bodies Not Reportable 04/09/18 00:27 Sickle Cells Not Reportable 04/09/18 00:27 Target Cells Not Reportable 04/09/18 00:27 Tear Drop Cells Not Reportable 04/09/18 00:27 Ovalocytes Not Reportable 04/09/18 00:27 Helmet Cells Not Reportable 04/09/18 00:27 Maldonado-Cranston Bodies Not Reportable 04/09/18 00:27 [place] Rings Not Reportable 04/09/18 00:27 [place] Cells Not Reportable 04/09/18 00:27 Bite Cells Not Reportable 04/09/18 00:27 Crenated Cell Not Reportable 04/09/18 00:27 Elliptocytes Not Reportable 04/09/18 00:27 Acanthocytes (Spur) Not Reportable 04/09/18 00:27 Rouleaux Not Reportable 04/09/18 00:27 Hemoglobin C Crystals Not Reportable 04/09/18 00:27 Schistocytes Not Reportable 04/09/18 00:27 Malaria parasites Not Reportable 04/09/18 00:27 Ajay Bodies Not Reportable 04/09/18 00:27 Hem Pathologist Commnt No 04/09/18 00:27 POC ABG pH 7.466 (7.35-7.45) H 04/09/18 12:42 POC ABG pCO2 24.6 (35-45) L 04/09/18 12:42 POC ABG pO2 120 (80-105) H 04/09/18 12:42 POC ABG HCO3 17.7 04/09/18 12:42 POC ABG Total CO2 18 04/09/18 12:42 POC ABG O2 Sat 99 04/09/18 12:42 POC ABG Base Excess -6 04/09/18 12:42 FiO2 28 % 04/09/18 12:42 Sodium 141 mmol/L (137-145) 04/12/18 09:03 Potassium 3.2 mmol/L (3.6-5.0) L D 04/12/18 09:03 Chloride 115.3 mmol/L (98-107) H 04/12/18 09:03 Carbon Dioxide 14 mmol/L (22-30) L 04/12/18 09:03 Anion Gap 15 mmol/L 04/12/18 09:03 BUN 11 mg/dL (7-17) 04/12/18 09:03 Creatinine 0.6 mg/dL (0.7-1.2) L 04/12/18 09:03 Estimated GFR > 60 ml/min 04/12/18 09:03 BUN/Creatinine Ratio 18 % 04/12/18 09:03 Glucose 118 mg/dL (65-100) H 04/12/18 09:03 POC Glucose 121 (70-105) H 04/12/18 06:39 Lactic Acid 1.60 mmol/L (0.7-2.0) 04/08/18 23:30 Calcium 6.9 mg/dL (8.4-10.2) L 04/12/18 09:03 Phosphorus 1.90 mg/dL (2.5-4.5) L D 04/12/18 09:03 Magnesium 2.60 mg/dL (1.7-2.3) H 04/09/18 16:50 Total Bilirubin 0.30 mg/dL (0.1-1.2) 04/08/18 02:50 AST 74 units/L (5-40) H 04/08/18 02:50 ALT 96 units/L (7-56) H 04/08/18 02:50 Alkaline Phosphatase 70 units/L (35-129) 04/08/18 02:50 Total Creatine Kinase 1194 units/L (30-135) H 04/08/18 12:46 CK-MB (CK-2) 5.1 ng/mL (0.0-4.0) H 04/08/18 12:46 CK-MB (CK-2) Rel Index 0.4 (0-4) 04/08/18 12:46 Troponin T 0.018 ng/mL (0.00-0.029) 04/08/18 12:46 Total Protein 6.2 g/dL (6.3-8.2) L 04/08/18 02:50 Albumin 2.7 g/dL (3.9-5) L 04/08/18 02:50 Albumin/Globulin Ratio 0.8 % 04/08/18 02:50 Triglycerides 247 mg/dL (2-149) H 04/08/18 02:50 Cholesterol 116 mg/dL (50-199) 04/08/18 02:50 LDL Cholesterol Direct 55 mg/dL (50-130) 04/08/18 02:50 HDL Cholesterol 36 mg/dL (40-59) L 04/08/18 02:50 Cholesterol/HDL Ratio 3.22 % 04/08/18 02:50 TSH 0.753 mlU/mL (0.270-4.200) 04/09/18 16:50 Free T4 1.13 ng/dL (0.76-1.46) 04/09/18 16:50 PTH Intact 169.6 pg/mL (15-65) H 04/11/18 05:19 Urine Color Yellow (Yellow) 04/08/18 02:57 Urine Turbidity Turbid (Clear) 04/08/18 02:57 Urine pH 6.0 (5.0-7.0) 04/08/18 02:57 Ur Specific [place] 1.014 (1.003-1.030) 04/08/18 02:57 Urine Protein 100 mg/dl mg/dL (Negative) 04/08/18 02:57 Urine Glucose (UA) Neg mg/dL (Negative) 04/08/18 02:57 Urine Ketones Tr mg/dL (Negative) 04/08/18 02:57 Urine Blood Sm (Negative) 04/08/18 02:57 Urine Nitrite Neg (Negative) 04/08/18 02:57 Urine Bilirubin Neg (Negative) 04/08/18 02:57 Urine Urobilinogen 2.0 mg/dL (<2.0) 04/08/18 02:57 Ur Leukocyte Esterase Mod (Negative) 04/08/18 02:57 Urine WBC (Auto) > 182.0 /HPF (0.0-6.0) H 04/08/18 02:57 Urine RBC (Auto) 23.0 /HPF (0.0-6.0) 04/08/18 02:57 Urine Bacteria (Auto) 4+ /HPF (Negative) 04/08/18 02:57 Calcium Oxalate Crystal 2+ 04/08/18 02:57 Amorphous Crystals 2+ 04/08/18 02:57 Urine Creatinine 24.0 mg/dL (0.1-20.0) H 04/08/18 15:18 Protein/Creatinin Ratio 2.38 04/08/18 15:18 Urine Sodium 60 mmol/L 04/08/18 15:43 Urine Total Protein 57 mg/dL (5-11.8) H 04/08/18 15:18 Digoxin 1.1 ng/mL (0.9-2.0) 04/09/18 01:23 Group A Strep Rapid Negative (Negative) 04/08/18 00:35 Blood Type O POSITIVE 04/11/18 05:19 Antibody Screen Negative 04/11/18 05:19 Crossmatch See Detail 04/11/18 05:19 Nutrition/Malnutrition Assess - Dietary Evaluation Nutrition/Malnutrition Findings: Nutrition Notes Start: 04/09/18 16 :11 Freq: Status: Active Protocol: Document 04/11/18 11:59 (Rec: 04/11/18 12:58 KH [email or web address]) Co-Sign 04/11/18 11:59 OL Nutrition Notes Initial or Follow up Brief Note Current Diet NPO Subjective/Other Information During interdisciplinary rounds, MD requested to restart TF. Nutrition Intervention Nutrition Support: Glucerna 1.2 at 50 ml/hr with water flush of 80ml q4h or per MD Kcal 1,152 Protein (gm) 72 Fluid (mL) 966 Follow-Up By: 04/15/18 Additional Comments F/u: new TF
[2018-04-12] MEDS ORDERED: TRIPLE ANTIBIOTIC TP ONE (15:00)
[2018-04-12] MEDS ORDERED: DIPRIVAN 10 MG/ML IV ONE (18:00)
--- NOTE | 2018-04-12 18:00 | Anesthesia Day of Surgery ---
Anesthesia Day of Surgery - Day of Surgery Patient Examined: Yes Patient H&P Reviewed: Yes Patient is NPO: Yes Beta Blockers: No Cardiac Clearance: No Pulmonary Clearance: No
[2018-04-12] MEDS ORDERED: SODIUM BICARBONATE FEEDTUBE PRN (18:01)
--- NOTE | 2018-04-12 18:03 | Anesthesia Consultation ---
Anesthesia Consult and Med Hx Date of service: 04/12/18 - Airway Anesthetic Teeth Evaluation: Poor (uanble to assess patient not cooperative ) ROM Head & Neck: Adequate Mental/Hyoid Distance: Adequate Mallampati Class: Class I Intubation Access Assessment: Probably Good - Pulmonary Exam CTA: Yes - Cardiac Exam Cardiac Exam: No Murmur - Pre-Operative Health Status ASA Pre-Surgery Classification: ASA4 Proposed Anesthetic Plan: MAC - Cardiovascular System Hx Hypertension: Yes Hx Coronary Artery Disease: Yes Hx Pacemaker: No Hx Internal Defibrillator: No - Other Systems Hx Cancer: No
--- NOTE | 2018-04-12 18:50 | Operative Report ---
Operative Report Operative Report: Date of procedure: 04/12/18 Procedure: Esophagogastroduodenoscopy Preprocedure diagnosis: melena Post procedure diagnosis: gastritis, duodenitis Endoscopist: Nilo Amaya MD Anesthesia: Monitored anesthesia care per anesthesia department Medications: see records per anesthesia Estimated blood loss: 0 After careful discussion of the nature and purpose of the procedure as well as details the technique risks benefits and alternatives consent was obtained. The patient was placed in the supine position and medicated per anesthesia. The tip of the Reamaze EQ 570 video scope was passed per orum under direct vision into the esophagus and advanced into the stomach and descending duodenum. The 2nd part of the duodenum appeared normal. The duodenal bulb revealed mildly erythematous mucosa. PEG tube internal bumper seen without surrounding ulceration. The scope was withdrawn into the stomach and the stomach then gently insufflated with air. The antrum revealed erythematous mucosa. Biopsies were obtained from the antrum. The stomach was further insufflated and the scope was then retroflexed and partially withdrawn. The cardia and fundus appeared normal. The gastric body appeared normal. The scope was then withdrawn in the forward position. The esophagogastric junction was at 38 cm with regular z-line. The esophagus appeared normal. The procedure was well tolerated and the patient was observed in recovery. Impressions: 1. Mild duodenitis. 2. Mild antral gastritis. PEG tube internal bumper seen without surrounding ulceration. 3. No signs of active bleeding Plan: 1. Continue with PPI 2. Monitor H/H and for signs of active bleeding. 3. Will sign off. Please call with questions. Discussed findings with family.
[2018-04-12] MEDS: PREVACID SOLUTAB FEEDTUBE SCH (20:02)
[2018-04-12] MEDS: PRAVACHOL PO SCH (22:15)
[2018-04-13 05:22] LABS: Basophils % (Auto) 0.2 % (0.0-1.8); Eosinophils # (Auto) 0.2 K/mm3 (0.0-0.4); Eosinophils % (Auto) 1.8 % (0.0-4.3); Hematocrit 27.6 % (30.3-42.9); Lymphocytes % (Auto) 9.9 % (13.4-35.0); Mean Corpuscular HGB Conc 33 % (30-34); Mean Corpuscular Volume 90 fl (79-97); Monocytes # (Auto) 0.4 K/mm3 (0.0-0.8); Monocytes % (Auto) 4.2 % (0.0-7.3); Platelet Count 184 K/mm3 (140-440); Red Blood Count 3.05 M/mm3 (3.65-5.03); Red Cell Distribution Width 17.3 % (13.2-15.2)
--- NOTE | 2018-04-13 05:50 | Progress Note ---
Assessment and Plan -Severe sepsis with septic shock -UTI -Acute renal failure, vasomotor nephropathy, ischemic ATN -Lactic acidosis -Hyperglycemia -Hypernatremia -Acute on chronic encephalopathy( toxic, metabolic) -h/o CVA -Oropharyngeal dysphagia with PEG -Anemia s/p EGD with acute bleeding -Continue broad spectrum antibiotics,, follow cultures -De-escalate antibiotic therapy based on PETR and cultures reports -Resume VTE prophyalxis -Aspiration precautions -Adjust all medications for CrCl/GFR. Avoid nephrotoxic agents -Accuchecks with glycemic control. Target glucose 140-180 mg/dL -VTE prophylaxis, on hold secondary to anemia -Mobility program for pressure ulcer prevention -Aspiration precautions Updated son at the bedside, answered all his questions Subjective Date of service: 04/13/18 Principal diagnosis: Severe sepsis with shock; UTI; IZTEL; Hypernatremia Interval history: Seen and examined. Son at the bedside. Vitals, albs, medications, chart reviewed. Off vasopresssor support s/p PRCB transfusion. No acute overnight events reported. No fevers, hemodynamoics remain with normal limits Objective Vital Signs - 12hr 04/12/18 04/12/18 04/12/18 17:51 18:00 18:11 Temperature 98.4 F Pulse Rate 71 60 74 Respiratory 22 22 26 H Rate Blood Pressure 97/61 107/58 113/66 O2 Sat by Pulse 98 97 97 Oximetry 04/12/18 04/12/18 04/12/18 18:21 18:30 18:31 Temperature 97.9 F Pulse Rate 78 106 H 88 Respiratory 49 H 28 H 24 Rate Blood Pressure 115/72 122/83 107/80 O2 Sat by Pulse 97 99 100 Oximetry 04/12/18 04/12/18 04/12/18 18:41 18:46 18:51 Temperature Pulse Rate 83 78 85 Respiratory 27 H 26 H 26 H Rate Blood Pressure 100/52 100/49 100/49 O2 Sat by Pulse 97 97 97 Oximetry 04/12/18 04/12/18 04/12/18 19:00 19:01 19:11 Temperature Pulse Rate 97 H 83 83 Respiratory 37 H 25 H 29 H Rate Blood Pressure 117/48 117/48 117/48 O2 Sat by Pulse 95 98 97 Oximetry 04/12/18 04/12/18 04/12/18 19:21 19:30 19:41 Temperature Pulse Rate 79 81 68 Respiratory 42 H 36 H 22 Rate Blood Pressure 122/78 117/72 117/72 O2 Sat by Pulse 97 97 98 Oximetry 04/12/18 04/12/18 04/12/18 19:51 20:00 20:11 Temperature 98 F Pulse Rate 74 80 75 Respiratory 22 45 H 20 Rate Blood Pressure 124/66 118/64 118/64 O2 Sat by Pulse 98 97 98 Oximetry 04/12/18 04/12/18 04/12/18 20:21 20:31 20:41 Temperature Pulse Rate 104 H 75 83 Respiratory 20 15 17 Rate Blood Pressure 122/78 131/84 131/84 O2 Sat by Pulse 98 99 100 Oximetry 04/12/18 04/12/18 04/12/18 20:51 21:01 21:11 Temperature Pulse Rate 66 61 65 Respiratory 20 20 20 Rate Blood Pressure 132/69 122/72 131/84 O2 Sat by Pulse 100 100 100 Oximetry 04/12/18 04/12/18 04/12/18 21:21 21:27 21:31 Temperature Pulse Rate 71 71 Respiratory 22 18 Rate Blood Pressure 134/79 131/71 O2 Sat by Pulse 100 98 100 Oximetry 04/12/18 04/12/18 04/12/18 21:41 21:51 22:00 Temperature Pulse Rate 80 60 71 Respiratory 27 H 16 12 Rate Blood Pressure 131/71 132/76 135/90 O2 Sat by Pulse 100 100 100 Oximetry 04/12/18 04/12/18 04/12/18 22:11 22:21 22:30 Temperature Pulse Rate 64 71 72 Respiratory 17 15 15 Rate Blood Pressure 132/76 135/84 133/78 O2 Sat by Pulse 100 100 100 Oximetry 04/12/18 04/12/18 04/12/18 22:41 22:47 22:51 Temperature Pulse Rate 90 84 84 Respiratory 20 19 18 Rate Blood Pressure 133/78 127/70 127/70 O2 Sat by Pulse 100 100 100 Oximetry 04/12/18 04/12/18 04/12/18 23:01 23:11 23:15 Temperature 97.5 F L Pulse Rate 83 72 Respiratory 22 15 Rate Blood Pressure 133/62 133/62 O2 Sat by Pulse 100 100 Oximetry 04/12/18 04/12/18 04/12/18 23:21 23:30 23:41 Temperature Pulse Rate 84 78 89 Respiratory 15 17 20 Rate Blood Pressure 135/54 125/78 125/78 O2 Sat by Pulse 100 100 99 Oximetry 04/12/18 04/13/18 04/13/18 23:50 00:00 00:01 Temperature Pulse Rate 95 H 88 82 Respiratory 17 14 Rate Blood Pressure 132/76 127/64 O2 Sat by Pulse 100 100 100 Oximetry 04/13/18 04/13/18 04/13/18 00:11 00:21 00:31 Temperature Pulse Rate 73 72 93 H Respiratory 19 15 16 Rate Blood Pressure 127/64 111/74 135/46 O2 Sat by Pulse 100 100 100 Oximetry 04/13/18 04/13/18 04/13/18 00:41 00:51 01:00 Temperature Pulse Rate 82 91 H 121 H Respiratory 17 19 20 Rate Blood Pressure 135/46 136/54 136/54 O2 Sat by Pulse 100 98 100 Oximetry 04/13/18 04/13/18 04/13/18 01:10 01:20 01:30 Temperature Pulse Rate 77 74 80 Respiratory 18 16 20 Rate Blood Pressure 126/69 130/67 126/69 O2 Sat by Pulse 100 100 100 Oximetry 04/13/18 04/13/18 04/13/18 01:40 01:50 02:00 Temperature Pulse Rate 80 68 76 Respiratory 17 17 18 Rate Blood Pressure 144/60 136/77 100/73 O2 Sat by Pulse 100 100 100 Oximetry 04/13/18 04/13/18 04/13/18 02:10 02:20 02:30 Temperature Pulse Rate 74 81 80 Respiratory 19 18 16 Rate Blood Pressure 100/73 100/73 100/73 O2 Sat by Pulse 100 100 100 Oximetry 04/13/18 04/13/18 04/13/18 02:40 02:50 03:00 Temperature Pulse Rate 80 82 94 H Respiratory 18 19 18 Rate Blood Pressure 100/73 100/73 100/73 O2 Sat by Pulse 100 100 100 Oximetry 04/13/18 04/13/18 04/13/18 03:10 03:20 03:30 Temperature Pulse Rate 93 H 91 H 96 H Respiratory 19 20 13 Rate Blood Pressure 100/73 100/73 100/73 O2 Sat by Pulse 100 100 100 Oximetry 04/13/18 04/13/18 04/13/18 03:36 03:40 03:50 Temperature 98.9 F Pulse Rate 101 H 95 H Respiratory 18 18 Rate Blood Pressure 100/73 100/73 O2 Sat by Pulse 100 100 Oximetry 04/13/18 04/13/18 04/13/18 04:00 04:10 04:20 Temperature Pulse Rate 79 91 H 99 H Respiratory 16 19 17 Rate Blood Pressure 100/73 115/75 115/75 O2 Sat by Pulse 100 100 100 Oximetry Constitutional: lethargic, appears uncomfortable, other (elderly looking AF, normocephalic and atraumatic without overt respiratory distress) Eyes: non-icteric ENT: oropharynx dry Neck: supple, no lymphadenopathy, no JVD Effort: normal Ascultation: Bilateral: clear, diminished breath sounds Percussion: Bilateral: not dull Cardiovascular: regular rate and rhythm, other (Tachycardia, S1,S2, no murmurs, gallops or rubs) Gastrointestinal: normoactive bowel sounds, soft, non-tender, non-distended, other (no guarding, PEG in place) Integumentary: other (loss of skin tugor) Extremities: no cyanosis, no edema, pink and warm, pulses normal, no ischemia or petechiae Neurologic: pupils equal and round, unable to assess (otherwise) Psychiatric: other (unable to assess) CBC and BMP: 04/15/18 06:00 04/15/18 06:00 ABG, PT/INR, D-dimer: ABG POC ABG pH 7.466 (7.35-7.45) H 04/09/18 12:42 POC ABG pCO2 24.6 (35-45) L 04/09/18 12:42 POC ABG pO2 120 (80-105) H 04/09/18 12:42 POC ABG HCO3 17.7 04/09/18 12:42 POC ABG Total CO2 18 04/09/18 12:42 POC ABG O2 Sat 99 04/09/18 12:42 Abnormal lab findings: Abnormal Labs 04/08/18 04/08/18 04/08/18 02:50 02:50 02:50 WBC 16.5 H RBC 3.37 L Hgb 9.7 L Hct RDW 17.6 H Lymph % (Auto) 11.0 L Lymph # [place] # 1.0 H Seg Neutrophils % 82.7 H Seg Neuts % (Manual) Lymphocytes % (Manual) Seg Neutrophils # 13.7 H Seg Neutrophils # Man Lymphocytes # (Manual) POC ABG pH POC ABG pCO2 POC ABG pO2 Sodium 152 H Potassium Chloride 108.9 H Carbon Dioxide BUN 102 H Creatinine 1.7 H Glucose 291 H POC Glucose Lactic Acid 2.70 H* Calcium 7.8 L Phosphorus Magnesium AST 74 H ALT 96 H Total Creatine Kinase CK-MB (CK-2) Troponin T 0.068 H Total Protein 6.2 L Albumin 2.7 L Triglycerides 247 H HDL Cholesterol 36 L PTH Intact Urine WBC (Auto) Urine Creatinine Urine Total Protein Crossmatch 04/08/18 04/08/18 04/08/18 02:50 02:57 03:44 WBC RBC Hgb Hct RDW Lymph % (Auto) Lymph # [place] # Seg Neutrophils % Seg Neuts % (Manual) Lymphocytes % (Manual) Seg Neutrophils # Seg Neutrophils # Man Lymphocytes # (Manual) POC ABG pH POC ABG pCO2 POC ABG pO2 Sodium Potassium Chloride Carbon Dioxide BUN Creatinine Glucose POC Glucose 289 H Lactic Acid Calcium Phosphorus Magnesium AST ALT Total Creatine Kinase CK-MB (CK-2) Troponin T Total Protein Albumin Triglycerides HDL Cholesterol PTH Intact Urine WBC (Auto) > 182.0 H Urine Creatinine Urine Total Protein Crossmatch See Detail 04/08/18 04/08/18 04/08/18 04:30 05:59 05:59 WBC RBC Hgb Hct RDW Lymph % (Auto) Lymph # [place] # Seg Neutrophils % Seg Neuts % (Manual) Lymphocytes % (Manual) Seg Neutrophils # Seg Neutrophils # Man Lymphocytes # (Manual) POC ABG pH POC ABG pCO2 POC ABG pO2 Sodium Potassium Chloride Carbon Dioxide BUN Creatinine Glucose POC Glucose Lactic Acid 3.50 H* 2.70 H* Calcium Phosphorus Magnesium AST ALT Total Creatine Kinase 1203 H CK-MB (CK-2) 4.7 H Troponin T 0.042 H D Total Protein Albumin Triglycerides HDL Cholesterol PTH Intact Urine WBC (Auto) Urine Creatinine Urine Total Protein Crossmatch 04/08/18 04/08/18 04/08/18 06:04 07:06 10:53 WBC RBC Hgb Hct RDW Lymph % (Auto) Lymph # [place] # Seg Neutrophils % Seg Neuts % (Manual) Lymphocytes % (Manual) Seg Neutrophils # Seg Neutrophils # Man Lymphocytes # (Manual) POC ABG pH POC ABG pCO2 POC ABG pO2 Sodium Potassium Chloride Carbon Dioxide BUN Creatinine Glucose POC Glucose 323 H Lactic Acid 2.40 H* 2.30 H* Calcium Phosphorus Magnesium AST ALT Total Creatine Kinase CK-MB (CK-2) Troponin T Total Protein Albumin Triglycerides HDL Cholesterol PTH Intact Urine WBC (Auto) Urine Creatinine Urine Total Protein Crossmatch 04/08/18 04/08/18 04/08/18 12:07 12:46 13:17 WBC RBC Hgb Hct RDW Lymph % (Auto) Lymph # [place] # Seg Neutrophils % Seg Neuts % (Manual) Lymphocytes % (Manual) Seg Neutrophils # Seg Neutrophils # Man Lymphocytes # (Manual) POC ABG pH POC ABG pCO2 POC ABG pO2 Sodium Potassium Chloride Carbon Dioxide BUN Creatinine Glucose POC Glucose 318 H 335 H Lactic Acid Calcium Phosphorus Magnesium AST ALT Total Creatine Kinase 1194 H CK-MB (CK-2) 5.1 H Troponin T Total Protein Albumin Triglycerides HDL Cholesterol PTH Intact Urine WBC (Auto) Urine Creatinine Urine Total Protein Crossmatch 04/08/18 04/08/18 04/08/18 13:19 14:32 15:18 WBC RBC Hgb Hct RDW Lymph % (Auto) Lymph # [place] # Seg Neutrophils % Seg Neuts % (Manual) Lymphocytes % (Manual) Seg Neutrophils # Seg Neutrophils # Man Lymphocytes # (Manual) POC ABG pH POC ABG pCO2 POC ABG pO2 Sodium Potassium Chloride Carbon Dioxide BUN Creatinine Glucose POC Glucose 291 H Lactic Acid 2.60 H* Calcium Phosphorus Magnesium AST ALT Total Creatine Kinase CK-MB (CK-2) Troponin T Total Protein Albumin Triglycerides HDL Cholesterol PTH Intact Urine WBC (Auto) Urine Creatinine 24.0 H Urine Total Protein 57 H Crossmatch 04/08/18 04/08/18 04/08/18 15:40 16:54 17:52 WBC RBC Hgb Hct RDW Lymph % (Auto) Lymph # [place] # Seg Neutrophils % Seg Neuts % (Manual) Lymphocytes % (Manual) Seg Neutrophils # Seg Neutrophils # Man Lymphocytes # (Manual) POC ABG pH POC ABG pCO2 POC ABG pO2 Sodium Potassium Chloride Carbon Dioxide BUN Creatinine Glucose POC Glucose 280 H 226 H Lactic Acid 3.10 H* Calcium Phosphorus Magnesium AST ALT Total Creatine Kinase CK-MB (CK-2) Troponin T Total Protein Albumin Triglycerides HDL Cholesterol PTH Intact Urine WBC (Auto) Urine Creatinine Urine Total Protein Crossmatch 04/08/18 04/08/18 04/08/18 18:35 19:18 19:57 WBC RBC Hgb Hct RDW Lymph % (Auto) Lymph # [place] # Seg Neutrophils % Seg Neuts % (Manual) Lymphocytes % (Manual) Seg Neutrophils # Seg Neutrophils # Man Lymphocytes # (Manual) POC ABG pH POC ABG pCO2 POC ABG pO2 Sodium Potassium Chloride Carbon Dioxide BUN Creatinine Glucose POC Glucose 247 H Lactic Acid 2.60 H* 2.60 H* Calcium Phosphorus Magnesium AST ALT Total Creatine Kinase CK-MB (CK-2) Troponin T Total Protein Albumin Triglycerides HDL Cholesterol PTH Intact Urine WBC (Auto) Urine Creatinine Urine Total Protein Crossmatch 04/08/18 04/08/18 04/09/18 21:41 22:56 00:27 WBC 14.5 H RBC 2.78 L Hgb 8.1 L Hct 26.4 L RDW 16.7 H Lymph % (Auto) Lymph # [place] # Seg Neutrophils % Seg Neuts % (Manual) 89.0 H Lymphocytes % (Manual) 5.0 L Seg Neutrophils # Seg Neutrophils # Man 12.9 H Lymphocytes # (Manual) 0.7 L POC ABG pH POC ABG pCO2 POC ABG pO2 Sodium Potassium Chloride Carbon Dioxide BUN Creatinine Glucose POC Glucose 164 H Lactic Acid 3.80 H* Calcium Phosphorus Magnesium AST ALT Total Creatine Kinase CK-MB (CK-2) Troponin T Total Protein Albumin Triglycerides HDL Cholesterol PTH Intact Urine WBC (Auto) Urine Creatinine Urine Total Protein Crossmatch 04/09/18 04/09/18 04/09/18 00:27 02:54 05:51 WBC RBC Hgb Hct RDW Lymph % (Auto) Lymph # [place] # Seg Neutrophils % Seg Neuts % (Manual) Lymphocytes % (Manual) Seg Neutrophils # Seg Neutrophils # Man Lymphocytes # (Manual) POC ABG pH POC ABG pCO2 POC ABG pO2 Sodium 149 H Potassium Chloride 118.4 H Carbon Dioxide BUN 38 H Creatinine 0.6 L D Glucose 153 H POC Glucose 151 H 203 H Lactic Acid Calcium 6.6 L D Phosphorus Magnesium AST ALT Total Creatine Kinase CK-MB (CK-2) Troponin T Total Protein Albumin Triglycerides HDL Cholesterol PTH Intact Urine WBC (Auto) Urine Creatinine Urine Total Protein Crossmatch 04/09/18 04/09/18 04/09/18 06:00 06:00 10:18 WBC 13.2 H RBC 2.84 L Hgb 8.2 L Hct 27.1 L RDW 17.2 H Lymph % (Auto) 8.5 L Lymph # 1.1 L [place] # Seg Neutrophils % 87.2 H Seg Neuts % (Manual) Lymphocytes % (Manual) Seg Neutrophils # 11.5 H Seg Neutrophils # Man Lymphocytes # (Manual) POC ABG pH POC ABG pCO2 POC ABG pO2 Sodium 152 H Potassium Chloride 119.6 H Carbon Dioxide 21 L BUN 33 H Creatinine Glucose 187 H POC Glucose 217 H Lactic Acid Calcium 6.8 L Phosphorus Magnesium AST ALT Total Creatine Kinase CK-MB (CK-2) Troponin T Total Protein Albumin Triglycerides HDL Cholesterol PTH Intact Urine WBC (Auto) Urine Creatinine Urine Total Protein Crossmatch 04/09/18 04/09/18 04/09/18 12:42 16:50 17:40 WBC RBC Hgb Hct RDW Lymph % (Auto) Lymph # [place] # Seg Neutrophils % Seg Neuts % (Manual) Lymphocytes % (Manual) Seg Neutrophils # Seg Neutrophils # Man Lymphocytes # (Manual) POC ABG pH 7.466 H POC ABG pCO2 24.6 L POC ABG pO2 120 H Sodium Potassium Chloride Carbon Dioxide BUN Creatinine Glucose POC Glucose 244 H Lactic Acid Calcium Phosphorus Magnesium 2.60 H AST ALT Total Creatine Kinase CK-MB (CK-2) Troponin T Total Protein Albumin Triglycerides HDL Cholesterol PTH Intact Urine WBC (Auto) Urine Creatinine Urine Total Protein Crossmatch 04/09/18 04/10/18 04/10/18 23:55 00:33 05:00 WBC RBC 2.47 L Hgb 7.3 L Hct 23.6 L RDW 16.9 H Lymph % (Auto) Lymph # 1.1 L [place] # Seg Neutrophils % 82.0 H Seg Neuts % (Manual) Lymphocytes % (Manual) Seg Neutrophils # Seg Neutrophils # Man Lymphocytes # (Manual) POC ABG pH POC ABG pCO2 POC ABG pO2 Sodium Potassium Chloride Carbon Dioxide BUN Creatinine Glucose POC Glucose 233 H 176 H Lactic Acid Calcium Phosphorus Magnesium AST ALT Total Creatine Kinase CK-MB (CK-2) Troponin T Total Protein Albumin Triglycerides HDL Cholesterol PTH Intact Urine WBC (Auto) Urine Creatinine Urine Total Protein Crossmatch 04/10/18 04/10/18 04/10/18 05:00 05:19 11:42 WBC RBC Hgb Hct RDW Lymph % (Auto) Lymph # [place] # Seg Neutrophils % Seg Neuts % (Manual) Lymphocytes % (Manual) Seg Neutrophils # Seg Neutrophils # Man Lymphocytes # (Manual) POC ABG pH POC ABG pCO2 POC ABG pO2 Sodium 150 H Potassium Chloride 120.0 H Carbon Dioxide 20 L BUN 21 H Creatinine 0.6 L Glucose 189 H POC Glucose 197 H 197 H Lactic Acid Calcium 6.5 L Phosphorus 2.10 L D Magnesium AST ALT Total Creatine Kinase CK-MB (CK-2) Troponin T Total Protein Albumin Triglycerides HDL Cholesterol PTH Intact Urine WBC (Auto) Urine Creatinine Urine Total Protein Crossmatch 04/10/18 04/10/18 04/11/18 17:32 20:38 00:24 WBC RBC Hgb Hct RDW Lymph % (Auto) Lymph # [place] # Seg Neutrophils % Seg Neuts % (Manual) Lymphocytes % (Manual) Seg Neutrophils # Seg Neutrophils # Man Lymphocytes # (Manual) POC ABG pH POC ABG pCO2 POC ABG pO2 Sodium Potassium Chloride Carbon Dioxide BUN Creatinine Glucose POC Glucose 114 H 107 H 110 H Lactic Acid Calcium Phosphorus Magnesium AST ALT Total Creatine Kinase CK-MB (CK-2) Troponin T Total Protein Albumin Triglycerides HDL Cholesterol PTH Intact Urine WBC (Auto) Urine Creatinine Urine Total Protein Crossmatch 04/11/18 04/11/18 04/11/18 04:01 05:19 05:19 WBC RBC 2.36 L Hgb 6.9 L Hct 22.5 L RDW 16.9 H Lymph % (Auto) 11.6 L Lymph # 1.0 L [place] # Seg Neutrophils % 84.4 H Seg Neuts % (Manual) Lymphocytes % (Manual) Seg Neutrophils # Seg Neutrophils # Man Lymphocytes # (Manual) POC ABG pH POC ABG pCO2 POC ABG pO2 Sodium Potassium Chloride 111.3 H Carbon Dioxide 15 L BUN Creatinine 0.6 L Glucose 137 H POC Glucose 137 H Lactic Acid Calcium 6.8 L Phosphorus 2.40 L Magnesium AST ALT Total Creatine Kinase CK-MB (CK-2) Troponin T Total Protein Albumin Triglycerides HDL Cholesterol PTH Intact Urine WBC (Auto) Urine Creatinine Urine Total Protein Crossmatch 04/11/18 04/11/18 04/11/18 05:19 05:19 08:21 WBC RBC Hgb Hct RDW Lymph % (Auto) Lymph # [place] # Seg Neutrophils % Seg Neuts % (Manual) Lymphocytes % (Manual) Seg Neutrophils # Seg Neutrophils # Man Lymphocytes # (Manual) POC ABG pH POC ABG pCO2 POC ABG pO2 Sodium Potassium Chloride Carbon Dioxide BUN Creatinine Glucose POC Glucose 159 H Lactic Acid Calcium Phosphorus Magnesium AST ALT Total Creatine Kinase CK-MB (CK-2) Troponin T Total Protein Albumin Triglycerides HDL Cholesterol PTH Intact 169.6 H Urine WBC (Auto) Urine Creatinine Urine Total Protein Crossmatch See Detail 04/11/18 04/11/18 04/11/18 12:41 16:05 21:11 WBC RBC Hgb Hct RDW Lymph % (Auto) Lymph # [place] # Seg Neutrophils % Seg Neuts % (Manual) Lymphocytes % (Manual) Seg Neutrophils # Seg Neutrophils # Man Lymphocytes # (Manual) POC ABG pH POC ABG pCO2 POC ABG pO2 Sodium Potassium Chloride Carbon Dioxide BUN Creatinine Glucose POC Glucose 180 H 165 H 133 H Lactic Acid Calcium Phosphorus Magnesium AST ALT Total Creatine Kinase CK-MB (CK-2) Troponin T Total Protein Albumin Triglycerides HDL Cholesterol PTH Intact Urine WBC (Auto) Urine Creatinine Urine Total Protein Crossmatch 04/12/18 04/12/18 04/12/18 00:15 03:51 06:39 WBC RBC Hgb Hct RDW Lymph % (Auto) Lymph # [place] # Seg Neutrophils % Seg Neuts % (Manual) Lymphocytes % (Manual) Seg Neutrophils # Seg Neutrophils # Man Lymphocytes # (Manual) POC ABG pH POC ABG pCO2 POC ABG pO2 Sodium Potassium Chloride Carbon Dioxide BUN Creatinine Glucose POC Glucose 106 H 134 H 121 H Lactic Acid Calcium Phosphorus Magnesium AST ALT Total Creatine Kinase CK-MB (CK-2) Troponin T Total Protein Albumin Triglycerides HDL Cholesterol PTH Intact Urine WBC (Auto) Urine Creatinine Urine Total Protein Crossmatch 04/12/18 04/12/18 04/12/18 09:03 09:03 15:09 WBC RBC 3.02 L Hgb 8.8 L Hct 27.2 L RDW 16.6 H Lymph % (Auto) 11.3 L Lymph # 1.1 L [place] # Seg Neutrophils % 80.8 H Seg Neuts % (Manual) Lymphocytes % (Manual) Seg Neutrophils # 7.9 H Seg Neutrophils # Man Lymphocytes # (Manual) POC ABG pH POC ABG pCO2 POC ABG pO2 Sodium Potassium 3.2 L D Chloride 115.3 H Carbon Dioxide 14 L BUN Creatinine 0.6 L Glucose 118 H POC Glucose 122 H Lactic Acid Calcium 6.9 L Phosphorus 1.90 L D Magnesium AST ALT Total Creatine Kinase CK-MB (CK-2) Troponin T Total Protein Albumin Triglycerides HDL Cholesterol PTH Intact Urine WBC (Auto) Urine Creatinine Urine Total Protein Crossmatch 04/12/18 04/12/18 04/13/18 18:11 23:35 04:43 WBC RBC Hgb Hct RDW Lymph % (Auto) Lymph # [place] # Seg Neutrophils % Seg Neuts % (Manual) Lymphocytes % (Manual) Seg Neutrophils # Seg Neutrophils # Man Lymphocytes # (Manual) POC ABG pH POC ABG pCO2 POC ABG pO2 Sodium Potassium Chloride Carbon Dioxide BUN Creatinine Glucose POC Glucose 150 H 124 H 150 H Lactic Acid Calcium Phosphorus Magnesium AST ALT Total Creatine Kinase CK-MB (CK-2) Troponin T Total Protein Albumin Triglycerides HDL Cholesterol PTH Intact Urine WBC (Auto) Urine Creatinine Urine Total Protein Crossmatch 04/13/18 04:50 WBC RBC 3.05 L Hgb 9.0 L Hct 27.6 L RDW 17.3 H Lymph % (Auto) 9.9 L Lymph # 1.0 L [place] # Seg Neutrophils % 83.9 H Seg Neuts % (Manual) Lymphocytes % (Manual) Seg Neutrophils # 8.5 H Seg Neutrophils # Man Lymphocytes # (Manual) POC ABG pH POC ABG pCO2 POC ABG pO2 Sodium Potassium Chloride Carbon Dioxide BUN Creatinine Glucose POC Glucose Lactic Acid Calcium Phosphorus Magnesium AST ALT Total Creatine Kinase CK-MB (CK-2) Troponin T Total Protein Albumin Triglycerides HDL Cholesterol PTH Intact Urine WBC (Auto) Urine Creatinine Urine Total Protein Crossmatch Allied health notes reviewed: nursing
[2018-04-13 05:51] LABS: BUN/Creatinine Ratio 24; Blood Urea Nitrogen 12 mg/dL (7-17); Calcium 7.1 mg/dL (8.4-10.2); Hemolysis Index 6
[2018-04-13] MEDS: MAXIPIME/NS 1 GM/100 ML 1 GM/100 ML BAG IV SCH ×3 (06:01→22:19)
[2018-04-13] MEDS: PROAMATINE PO SCH ×3 (07:36→15:42)
[2018-04-13] MEDS: BICITRA PO SCH ×4 (07:36→19:42)
[2018-04-13] MEDS: SYNTHROID PO SCH (07:36)
[2018-04-13] MEDS: ARICEPT PO SCH (09:15)
[2018-04-13] MEDS: FEOSOL PO SCH (09:15)
[2018-04-13] MEDS: PREVACID SOLUTAB FEEDTUBE SCH (09:15)
[2018-04-13] MEDS: KLOR-CON PO SCH (09:16)
--- NOTE | 2018-04-13 09:51 | Progress Note ---
Assessment and Plan septic shock secondary to urosepsis acute renal failure secondary to ischemic ATN hypernatremia secondary to low oral intake Anemia in chronic disease hypokalemia hypocalcemia metabolic acidosis - ITZEL resolved - SPEP is pending for proteinuria - will increase bicitrato 30 cc TID - will d/c K bicarbonate - will start Calcium carbonate TID between meals - renally dose meds - strict I&O - daily weight Thank you for allowing to participate in Ms Cole's care Mike Herrera MD [phone] Subjective Date of service: 04/13/18 Principal diagnosis: Severe sepsis with shock; UTI; ITZEL; Hypernatremia Interval history: follows simple commands, family at bedside, all questions answered Objective - Vital Signs Vital signs: Vital Signs - 12hr 04/12/18 04/12/18 04/12/18 21:51 22:00 22:11 Temperature Pulse Rate 60 71 64 Pulse Rate [ From Monitor] Respiratory 16 12 17 Rate Blood Pressure 132/76 135/90 132/76 O2 Sat by Pulse 100 100 100 Oximetry 04/12/18 04/12/18 04/12/18 22:21 22:30 22:41 Temperature Pulse Rate 71 72 90 Pulse Rate [ From Monitor] Respiratory 15 15 20 Rate Blood Pressure 135/84 133/78 133/78 O2 Sat by Pulse 100 100 100 Oximetry 04/12/18 04/12/18 04/12/18 22:47 22:51 23:01 Temperature Pulse Rate 84 84 83 Pulse Rate [ From Monitor] Respiratory 19 18 22 Rate Blood Pressure 127/70 127/70 133/62 O2 Sat by Pulse 100 100 100 Oximetry 04/12/18 04/12/18 04/12/18 23:11 23:15 23:21 Temperature 97.5 F L Pulse Rate 72 84 Pulse Rate [ From Monitor] Respiratory 15 15 Rate Blood Pressure 133/62 135/54 O2 Sat by Pulse 100 100 Oximetry 04/12/18 04/12/18 04/12/18 23:30 23:41 23:50 Temperature Pulse Rate 78 89 95 H Pulse Rate [ From Monitor] Respiratory 17 20 17 Rate Blood Pressure 125/78 125/78 132/76 O2 Sat by Pulse 100 99 100 Oximetry 04/13/18 04/13/18 04/13/18 00:00 00:01 00:11 Temperature Pulse Rate 88 82 73 Pulse Rate [ From Monitor] Respiratory 14 19 Rate Blood Pressure 127/64 127/64 O2 Sat by Pulse 100 100 100 Oximetry 04/13/18 04/13/18 04/13/18 00:21 00:31 00:41 Temperature Pulse Rate 72 93 H 82 Pulse Rate [ From Monitor] Respiratory 15 16 17 Rate Blood Pressure 111/74 135/46 135/46 O2 Sat by Pulse 100 100 100 Oximetry 04/13/18 04/13/18 04/13/18 00:51 01:00 01:10 Temperature Pulse Rate 91 H 121 H 77 Pulse Rate [ From Monitor] Respiratory 19 20 18 Rate Blood Pressure 136/54 136/54 126/69 O2 Sat by Pulse 98 100 100 Oximetry 04/13/18 04/13/18 04/13/18 01:20 01:30 01:40 Temperature Pulse Rate 74 80 80 Pulse Rate [ From Monitor] Respiratory 16 20 17 Rate Blood Pressure 130/67 126/69 144/60 O2 Sat by Pulse 100 100 100 Oximetry 04/13/18 04/13/18 04/13/18 01:50 02:00 02:10 Temperature Pulse Rate 68 76 74 Pulse Rate [ From Monitor] Respiratory 17 18 19 Rate Blood Pressure 136/77 100/73 100/73 O2 Sat by Pulse 100 100 100 Oximetry 04/13/18 04/13/18 04/13/18 02:20 02:30 02:40 Temperature Pulse Rate 81 80 80 Pulse Rate [ From Monitor] Respiratory 18 16 18 Rate Blood Pressure 100/73 100/73 100/73 O2 Sat by Pulse 100 100 100 Oximetry 04/13/18 04/13/18 04/13/18 02:50 03:00 03:10 Temperature Pulse Rate 82 94 H 93 H Pulse Rate [ From Monitor] Respiratory 19 18 19 Rate Blood Pressure 100/73 100/73 100/73 O2 Sat by Pulse 100 100 100 Oximetry 04/13/18 04/13/18 04/13/18 03:20 03:30 03:36 Temperature 98.9 F Pulse Rate 91 H 96 H Pulse Rate [ From Monitor] Respiratory 20 13 Rate Blood Pressure 100/73 100/73 O2 Sat by Pulse 100 100 Oximetry 04/13/18 04/13/18 04/13/18 03:40 03:50 04:00 Temperature Pulse Rate 101 H 95 H 79 Pulse Rate [ From Monitor] Respiratory 18 18 16 Rate Blood Pressure 100/73 100/73 100/73 O2 Sat by Pulse 100 100 100 Oximetry 04/13/18 04/13/18 04/13/18 04:10 04:20 04:30 Temperature Pulse Rate 91 H 99 H 74 Pulse Rate [ From Monitor] Respiratory 19 17 15 Rate Blood Pressure 115/75 115/75 115/75 O2 Sat by Pulse 100 100 100 Oximetry 04/13/18 04/13/18 04/13/18 04:40 04:50 05:00 Temperature Pulse Rate 97 H 78 81 Pulse Rate [ From Monitor] Respiratory 18 16 15 Rate Blood Pressure 115/75 115/75 115/75 O2 Sat by Pulse 99 100 100 Oximetry 04/13/18 04/13/18 04/13/18 05:10 05:20 05:30 Temperature Pulse Rate 99 H 88 88 Pulse Rate [ From Monitor] Respiratory 19 20 32 H Rate Blood Pressure 118/77 118/77 118/77 O2 Sat by Pulse 100 100 100 Oximetry 04/13/18 04/13/18 04/13/18 05:40 05:50 06:00 Temperature Pulse Rate 88 93 H 92 H Pulse Rate [ From Monitor] Respiratory 20 22 17 Rate Blood Pressure 118/77 118/77 118/77 O2 Sat by Pulse 100 100 100 Oximetry 04/13/18 04/13/18 04/13/18 06:10 06:20 06:30 Temperature Pulse Rate 89 89 82 Pulse Rate [ From Monitor] Respiratory 26 H 20 23 Rate Blood Pressure 103/60 103/60 103/60 O2 Sat by Pulse 100 100 100 Oximetry 04/13/18 04/13/18 04/13/18 06:40 06:50 07:00 Temperature Pulse Rate 96 H 75 87 Pulse Rate [ From Monitor] Respiratory 22 16 12 Rate Blood Pressure 103/60 103/60 103/60 O2 Sat by Pulse 100 100 100 Oximetry 04/13/18 04/13/18 04/13/18 07:10 07:20 07:30 Temperature Pulse Rate 83 84 84 Pulse Rate [ From Monitor] Respiratory 20 27 H 18 Rate Blood Pressure 127/75 127/75 127/75 O2 Sat by Pulse 99 100 100 Oximetry 04/13/18 04/13/18 04/13/18 07:40 07:50 08:00 Temperature 97.7 F Pulse Rate 80 86 95 H Pulse Rate [ 91 H From Monitor] Respiratory 13 20 19 Rate Blood Pressure 127/75 127/75 127/75 O2 Sat by Pulse 100 100 99 Oximetry 04/13/18 04/13/18 04/13/18 08:10 08:20 08:30 Temperature Pulse Rate 80 96 H 94 H Pulse Rate [ From Monitor] Respiratory 18 18 21 Rate Blood Pressure 127/75 127/75 127/75 O2 Sat by Pulse 100 99 100 Oximetry 04/13/18 04/13/18 04/13/18 08:40 08:50 08:56 Temperature Pulse Rate 93 H 90 Pulse Rate [ From Monitor] Respiratory 16 19 Rate Blood Pressure 117/75 117/75 O2 Sat by Pulse 100 100 100 Oximetry 04/13/18 09:00 Temperature Pulse Rate 88 Pulse Rate [ From Monitor] Respiratory 17 Rate Blood Pressure 100/32 O2 Sat by Pulse 99 Oximetry - General Appearance General appearance: well-developed, well-nourished, appears stated age EENT: ATNC, PERRL Neck: no JVD, no carotid bruit Respiratory: Present: Clear to Ascultation. Absent: Rales, Ronchi Cardiology: regular, S1S2 Gastrointestinal: normoactive bowel sounds, no tenderness, no distended Integumentary: no rash, warm and dry Neurologic: no focal deficit, no asterixis Musculoskeletal: other (trace pitting edema in BLE) Psychiatric: cooperative - Lab 04/13/18 04:50 04/13/18 04:50 Most recent lab results Calcium 7.1 mg/dL (8.4-10.2) L 04/13/18 04:50 Phosphorus 3.30 mg/dL (2.5-4.5) D 04/13/18 04:50 Magnesium 2.60 mg/dL (1.7-2.3) H 04/09/18 16:50 Urine Creatinine 24.0 mg/dL (0.1-20.0) H 04/08/18 15:18 Urine Sodium 60 mmol/L 04/08/18 15:43 Urine Total Protein 57 mg/dL (5-11.8) H 04/08/18 15:18 Medications & Allergies - Medications Allergies/Adverse Reactions: Allergies No Known Allergies Allergy (Verified 04/08/18 02:43) Home Medications: Home Medications Medication Instructions Recorded Confirmed Last Taken Type Docusate Sodium [Colace CAP] 100 mg PO BID PRN 06/18/16 04/08/18 04/07/18 History Apixaban [Eliquis] 2.5 mg PO Q12HR #60 tablet 08/12/16 04/08/18 04/07/18 Rx Levothyroxine [Synthroid] 75 mcg PO DAILY@0600 #30 tablet 08/12/16 04/08/18 04/07/18 Rx Simvastatin (Nf) [Zocor TAB] 40 mg PO QHS #30 tablet 08/12/16 04/08/18 04/07/18 Rx Acetaminophen [Tylenol] 325 mg PO PRN 04/08/18 04/08/18 04/07/18 History Digoxin [Lanoxin] 0.125 mg PO DAILY 04/08/18 04/08/18 04/07/18 History Insulin Detemir [Levemir Flextouch] 100 unit SQ DAILY 04/08/18 04/08/18 04/07/18 History Lisinopril [Prinivil] 5 mg PO DAILY 04/08/18 04/08/18 04/07/18 History Metoclopramide HCl 5 mg PO Q6HR 04/08/18 04/08/18 04/07/18 History Metoprolol Tartrate 25 mg PO TID 04/08/18 04/08/18 04/07/18 History Potassium Chloride [Klor-Con] 20 meq PO DAILY 04/08/18 04/08/18 04/07/18 History Simvastatin 40 mg PO DAILY 04/08/18 04/08/18 04/07/18 History Torsemide [Demadex] 20 mg PO DAILY 04/08/18 04/08/18 04/07/18 History Active Medications: Generic Name Dose Route Start Last Admin Trade Name Freq PRN Reason Stop Dose Admin Acetaminophen 650 mg 04/08/18 03:22 04/12/18 14:22 Tylenol FEEDTUBE 650 mg Q6H PRN Administration Pain, Mild (1-3) Lipase/Protease/Amylase 1 each 04/11/18 12:00 Pancrealexander Del Real 10,500 Unit FEEDTUBE PRN PRN For Clogged Feeding Tube Docusate Sodium 100 mg 04/08/18 05:04 Colace PO BID PRN Constipation Donepezil HCl 5 mg 04/08/18 10:00 04/13/18 09:15 Aricept PO 5 mg QDAY JUNIOR Administration Ferrous Sulfate 325 mg 04/08/18 10:00 04/13/18 09:15 Feosol PO 325 mg QDAY JUNIOR Administration Norepinephrine 4 mg in 250 mls @ 7.5 mls/hr 04/09/18 12:00 04/09/18 18:35 Levophed Drip 4 Mg/Ns 250 Ml IV 0 mcg/min TITR JUNIOR 0 mls/hr Titration Protocol 2 MCG/MIN Cefepime HCl 1 gm in 100 mls @ 200 mls/hr 04/12/18 14:00 04/13/18 06:01 Maxipime/Ns 1 Gm/100 Ml IV 200 mls/hr Q8HR JUNIOR Administration Protocol Lansoprazole 30 mg 04/12/18 19:00 04/13/18 09:15 Prevacid Solutab FEEDTUBE 30 mg QDAY JUNIOR Administration Levothyroxine Sodium 75 mcg 04/08/18 06:00 04/13/18 07:36 Synthroid PO 75 mcg DAILY@0600 JUNIOR Administration Midodrine 5 mg 04/10/18 16:00 04/13/18 07:36 Proamatine PO 5 mg TID@0800,1200,1600 JUNIOR Administration Ondansetron HCl 4 mg 04/08/18 04:59 Zofran IV Q8H PRN Nausea And Vomiting Pravastatin Sodium 80 mg 04/08/18 22:00 04/12/18 22:15 Pravachol PO 80 mg QHS JUNIOR Administration Simple Syrup 15 ml 04/11/18 12:00 Simple Syrup FEEDTUBE PRN PRN Hypoglycemia Simple Syrup 30 ml 04/11/18 11:30 Simple Syrup FEEDTUBE PRN PRN Hypoglycemia
[2018-04-13] MEDS ORDERED: PREVACID SOLUTAB FEEDTUBE SCH (10:00)
--- NOTE | 2018-04-13 12:17 | Progress Note ---
Assessment and Plan Cardiac rhythm is satisfactory. Bleeding appears to be stable at this time. Discussed with the family. Continue current management. - Patient Problems (1) Chronic atrial fibrillation Current Visit: Yes Status: Chronic (2) Acute ischemic stroke Current Visit: No Status: Acute (3) Altered mental status Current Visit: No Status: Acute (4) CHF (congestive heart failure) Current Visit: No Status: Acute (5) Cardiomyopathy Current Visit: No Status: Acute Subjective Date of service: 04/13/18 Principal diagnosis: Severe sepsis with shock; UTI; ITZEL; Hypernatremia Interval history: Patient appears to be comfortable today. Endoscopy report noted. Currently no further bleeding issues. Objective Vital Signs Temp Pulse Pulse Resp BP Pulse Ox 04/13/18 11:00 70 21 106/56 97 04/13/18 10:50 101 H 21 105/63 98 04/13/18 10:40 83 19 105/63 98 04/13/18 10:30 76 24 105/63 99 04/13/18 10:20 84 22 105/63 99 04/13/18 10:10 89 21 98/59 98 04/13/18 10:00 77 25 H 98/59 98 04/13/18 09:50 74 39 H 105/63 99 04/13/18 09:40 88 45 H 105/63 98 04/13/18 09:30 78 20 105/63 100 04/13/18 09:20 99 H 26 H 105/63 99 04/13/18 09:10 96 H 22 100/32 99 04/13/18 09:00 88 17 100/32 99 04/13/18 08:56 100 04/13/18 08:50 90 19 117/75 100 04/13/18 08:40 93 H 16 117/75 100 04/13/18 08:30 94 H 21 127/75 100 04/13/18 08:20 96 H 18 127/75 99 04/13/18 08:10 80 18 127/75 100 04/13/18 08:00 97.7 F 95 H 91 H 19 127/75 99 04/13/18 07:50 86 20 127/75 100 04/13/18 07:40 80 13 127/75 100 04/13/18 07:30 84 18 127/75 100 04/13/18 07:20 84 27 H 127/75 100 04/13/18 07:10 83 20 127/75 99 04/13/ 07:00 87 12 103/60 100 04/13/ 06:50 75 16 103/60 100 04/13/18 06:40 96 H 22 103/60 100 04/13/ 06:30 82 23 103/60 100 04/13/ 06:20 89 20 103/60 100 04/13/ 06:10 89 26 H 103/60 100 04/13/ 06:00 92 H 17 118/77 100 04/13/ 05:50 93 H 22 118/77 100 04/13/ 05:40 88 20 118/77 100 04/13/ 05:30 88 32 H 118/77 100 04/13/18 05:20 88 20 118/77 100 04/13/18 05:10 99 H 19 118/77 100 04/13/18 05:00 81 15 115/75 100 04/13/18 04:50 78 16 115/75 100 04/13/18 04:40 97 H 18 115/75 99 04/13/18 04:30 74 15 115/75 100 04/13/19 04:20 99 H 17 115/75 100 04/13/ 04:10 91 H 19 115/75 100 04/13/ 04:00 79 16 100/73 100 04/13/ 03:50 95 H 18 100/73 100 04/13/19 03:40 101 H 18 100/73 100 04/13/ 03:36 98.9 F 04/13/18 03:30 96 H 13 100/73 100 04/13/19 03:20 91 H 20 100/73 100 04/13/19 03:10 93 H 19 100/73 100 04/13/19 03:00 94 H 18 100/73 100 04/13/19 02:50 82 19 100/73 100 04/13/19 02:40 80 18 100/73 100 04/13/19 02:30 80 16 100/73 100 04/13/19 02:20 81 18 100/73 100 04/13/19 02:10 74 19 100/73 100 04/13/19 02:00 76 18 100/73 100 04/13/19 01:50 68 17 136/77 100 04/13/19 01:40 80 17 144/60 100 04/13/18 01:30 80 20 126/69 100 04/13/18 01:20 74 16 130/67 100 04/13/18 01:10 77 18 126/69 100 04/13/18 01:00 121 H 20 136/54 100 04/13/18 00:51 91 H 19 136/54 98 04/13/18 00:41 82 17 135/46 100 04/13/18 00:31 93 H 16 135/46 100 04/13/18 00:21 72 15 111/74 100 04/13/18 00:11 73 19 127/64 100 04/13/18 00:01 82 14 127/64 100 04/13/18 00:00 88 100 04/12/18 23:50 95 H 17 132/76 100 04/12/18 23:41 89 20 125/78 99 04/12/18 23:30 78 17 125/78 100 04/12/18 23:21 84 15 135/54 100 04/12/18 23:15 97.5 F L 04/12/18 23:11 72 15 133/62 100 04/12/18 23:01 83 22 133/62 100 04/12/18 22:51 84 18 127/70 100 04/12/18 22:47 84 19 127/70 100 04/12/18 22:41 90 20 133/78 100 04/12/18 22:30 72 15 133/78 100 04/12/18 22:21 71 15 135/84 100 04/12/18 22:11 64 17 132/76 100 04/12/18 22:00 71 12 135/90 100 04/12/18 21:51 60 16 132/76 100 04/12/18 21:41 80 27 H 131/71 100 04/12/18 21:31 71 18 131/71 100 04/12/18 21:27 98 04/12/18 21:21 71 22 134/79 100 04/12/18 21:11 65 20 131/84 100 04/12/18 21:01 61 20 122/72 100 04/12/18 20:51 66 20 132/69 100 04/12/18 20:41 83 17 131/84 100 04/12/18 20:31 75 15 131/84 99 04/12/18 20:21 104 H 20 122/78 98 01/18/19 20:11 75 20 118/64 98 /18/19 20:00 98 F 80 45 H 118/64 97 /18/19 19:51 74 22 124/66 98 /18/19 19:41 68 22 117/72 98 /18/19 19:30 81 36 H 117/72 97 /18/19 19:21 79 42 H 122/78 97 /18/19 19:11 83 29 H 117/48 97 /18/19 19:01 83 25 H 117/48 98 /18/19 19:00 97 H 37 H 117/48 95 /18/19 18:51 85 26 H 100/49 97 /18/19 18:46 78 26 H 100/49 97 /18/19 18:41 83 27 H 100/52 97 /18/19 18:31 97.9 F 88 24 107/80 100 18/19 18:30 106 H 28 H 122/83 99 18/19 18:21 78 49 H 115/72 97 18/19 18:11 74 26 H 113/66 97 /18/19 18:00 98.4 F 60 22 107/58 97 /18/19 17:51 71 22 97/61 98 /18/19 17:41 71 33 H 97/61 97 /18/19 17:30 75 22 97/61 97 /18/19 17:21 74 20 101/53 97 /18/19 17:11 79 20 101/53 98 /18/19 17:00 69 20 106/62 96 /18/19 16:51 73 20 96/62 98 /18/19 16:41 72 21 96/62 97 /18/19 16:30 67 21 101/53 98 /18/19 16:21 79 22 96/62 99 /18/19 16:11 70 21 96/62 98 /18/19 16:00 98.9 F 80 89 22 96/62 97 /18/19 15:51 84 21 104/57 97 /18/19 15:41 73 21 104/57 99 /18/19 15:31 82 19 104/57 99 /18/19 15:21 82 19 111/67 99 18/19 15:11 77 20 111/67 100 04/12/18 15:00 78 18 111/67 99 04/12/18 14:51 81 22 107/60 99 04/12/18 14:41 80 22 107/60 100 04/12/18 14:30 80 18 107/60 100 04/12/18 14:21 83 17 113/62 100 04/12/18 14:11 80 22 113/62 100 04/12/18 14:00 90 21 113/62 100 04/12/18 13:51 78 20 120/66 100 04/12/18 13:41 94 H 19 121/56 99 04/12/18 13:31 81 18 121/56 98 04/12/18 13:21 89 21 132/64 99 04/12/18 13:13 96 - Physical Examination General: Other (nonverbal) HEENT: Positive: PERRL Neck: Positive: neck supple Cardiac: Positive: irregularly irregular Lungs: Positive: clear to auscultation Neuro: Positive: Grossly Intact, Other (CLYDE) Abdomen: Positive: Soft Skin: Negative: Rash, Wound Musculoskeletal: No Pain Extremities: Absent: edema - Labs and Meds CBC 04/13/18 Range/Units 04:50 WBC 10.1 (4.5-11.0) K/mm3 RBC 3.05 L (3.65-5.03) M/mm3 Hgb 9.0 L (10.1-14.3) gm/dl Hct 27.6 L (30.3-42.9) % Plt Count 184 (140-440) K/mm3 Lymph # 1.0 L (1.2-5.4) K/mm3 Patrick # 0.4 (0.0-0.8) K/mm3 Eos # 0.2 (0.0-0.4) K/mm3 Baso # 0.0 (0.0-0.1) K/mm3 Comprehensive Metabolic Panel 04/13/18 Range/Units 04:50 Sodium 139 (137-145) mmol/L Potassium 4.7 D (3.6-5.0) mmol/L Chloride 111.1 H (98-107) mmol/L Carbon Dioxide 18 L (22-30) mmol/L BUN 12 (7-17) mg/dL Creatinine 0.5 L (0.7-1.2) mg/dL Glucose 142 H (65-100) mg/dL Calcium 7.1 L (8.4-10.2) mg/dL - Imaging and Cardiology EKG: report reviewed, image reviewed Echo: report reviewed (ECHO 04/09/18: EF 50-55%, mild LVH. 07/2016 showed EF 50- 55%, mild LVH, abnormal diastolic function, LA mild to mod dilated, mild MR, mod TR, RVSP 41mmHg. ) - Allied health notes Allied health notes reviewed: nursing
[2018-04-13] MEDS: OSCAL PO SCH ×2 (13:34→19:41)
--- NOTE | 2018-04-13 15:07 | Progress Note ---
Assessment and Plan Total Time Spent with Patient (Minutes): 34 - Patient Problems (1) Anemia due to GI blood loss Current Visit: Yes Status: Acute Plan to address problem: Patient anemia secondary to GI blood loss. She was on elaquis for DVT Recently discontinue elaquis and treat with low-dose aspirin for now. No further evidence of GI bleed hemoglobin and hematocrit remains intact. (2) Altered mental status Current Visit: No Status: Acute Plan to address problem: Multifactorial secondary to past acute CVA and current abscesses syndrome. (3) Atrial fibrillation with RVR Current Visit: No Status: Acute (4) CHF (congestive heart failure) Current Visit: No Status: Acute (5) Acute kidney injury Current Visit: Yes Status: Acute (6) Severe sepsis due to methicillin resistant Staphylococcus aureus (MRSA) with acute organ dysfunction Current Visit: Yes Status: Acute Plan to address problem: Patient with severe sepsis now improving with IV antibiotics. Patient has decreased white blood cell count and improving renal insufficiency as well as afebrile. TU present medical management IV antibiotics. History Interval history: Patient nonverbal currently not able to answer any questions or pertussis. With exam. Patient recent transfer ordered. To be acute GI blood loss anemia. Plan discharge back to [facility] on Sunday the patient remains hemodynamically stable. At present stable now. Hospitalist Physical - Constitutional Vitals: Temp Pulse Resp BP Pulse Ox 98.8 F 78 27 H 112/63 99 04/13/18 12:00 04/13/18 14:20 04/13/18 14:20 04/13/18 14:20 04/13/18 14:20 General appearance: Present: no acute distress, other (lethargic, nonverbal) - EENT Eyes: Present: PERRL, EOM intact ENT: no hearing intact, no clear oral mucosa, no dentition normal - Neck Neck: Present: supple, normal ROM. Absent: rigidity, enlarged thyroid, masses or JVD, cervical LAD - Respiratory Respiratory: negative: CTA, rhonchi (few) - Cardiovascular Rhythm: irregularly irregular Heart Sounds: Present: S1 & S2, gallop - Extremities Extremities: no ischemia, pulses intact, No edema, normal temperature, normal color, Full ROM, abnormal Extremity abnormal: edema Peripheral Pulses: within normal limits - Abdominal General gastrointestinal: soft, non-distended - Integumentary Integumentary: Present: clear - Psychiatric Psychiatric: other (nonverbal bedbound) - Neurologic Neurologic: focal deficits Results - Labs CBC & Chem 7: 04/13/18 04:50 04/13/18 04:50 Labs: Laboratory Last Values WBC 10.1 K/mm3 (4.5-11.0) 04/13/18 04:50 RBC 3.05 M/mm3 (3.65-5.03) L 04/13/18 04:50 Hgb 9.0 gm/dl (10.1-14.3) L 04/13/18 04:50 Hct 27.6 % (30.3-42.9) L 04/13/18 04:50 MCV 90 fl (79-97) 04/13/18 04:50 MCH 29 pg (28-32) 04/13/18 04:50 MCHC 33 % (30-34) 04/13/18 04:50 RDW 17.3 % (13.2-15.2) H 04/13/18 04:50 Plt Count 184 K/mm3 (140-440) 04/13/18 04:50 Lymph % (Auto) 9.9 % (13.4-35.0) L 04/13/18 04:50 [place] % (Auto) 4.2 % (0.0-7.3) 04/13/18 04:50 Eos % (Auto) 1.8 % (0.0-4.3) 04/13/18 04:50 Baso % (Auto) 0.2 % (0.0-1.8) 04/13/18 04:50 Lymph # 1.0 K/mm3 (1.2-5.4) L 04/13/18 04:50 [place] # 0.4 K/mm3 (0.0-0.8) 04/13/18 04:50 Eos # 0.2 K/mm3 (0.0-0.4) 04/13/18 04:50 Baso # 0.0 K/mm3 (0.0-0.1) 04/13/18 04:50 Add Manual Diff Complete 04/09/18 00:27 Total Counted 100 04/09/18 00:27 Seg Neutrophils % 83.9 % (40.0-70.0) H 04/13/18 04:50 Seg Neuts % (Manual) 89.0 % (40.0-70.0) H 04/09/18 00:27 Band Neutrophils % 6.0 % 04/09/18 00:27 Lymphocytes % (Manual) 5.0 % (13.4-35.0) L 04/09/18 00:27 Reactive Lymphs % (Man) 0 % 04/09/18 00:27 Monocytes % (Manual) 0 % (0.0-7.3) 04/09/18 00:27 Eosinophils % (Manual) 0 % (0.0-4.3) 04/09/18 00:27 Basophils % (Manual) 0 % (0.0-1.8) 04/09/18 00:27 Metamyelocytes % 0 % 04/09/18 00: Myelocytes % 0 % 04/09/18 00:27 Promyelocytes % 0 % 04/09/18 00:27 Blast Cells % 0 % 04/09/18 00:27 Nucleated RBC % Not Reportable 04/09/18 00:27 Seg Neutrophils # 8.5 K/mm3 (1.8-7.7) H 04/13/18 04:50 Seg Neutrophils # Man 12.9 K/mm3 (1.8-7.7) H 04/09/18 00:27 Band Neutrophils # 0.9 K/mm3 04/09/18 00:27 Lymphocytes # (Manual) 0.7 K/mm3 (1.2-5.4) L 04/09/18 00:27 Abs React Lymphs (Man) 0.0 K/mm3 04/09/18 00:27 Monocytes # (Manual) 0.0 K/mm3 (0.0-0.8) 04/09/18 00:27 Eosinophils # (Manual) 0.0 K/mm3 (0.0-0.4) 04/09/18 00:27 Basophils # (Manual) 0.0 K/mm3 (0.0-0.1) 04/09/18 00:27 Metamyelocytes # 0.0 K/mm3 04/09/18 00:27 Myelocytes # 0.0 K/mm3 04/09/18 00:27 Promyelocytes # 0.0 K/mm3 04/09/18 00:27 Blast Cells # 0.0 K/mm3 04/09/18 00:27 WBC Morphology Not Reportable 04/09/18 00:27 Hypersegmented Neuts Not Reportable 04/09/18 00:27 Hyposegmented Neuts Not Reportable 04/09/18 00:27 Hypogranular Neuts Not Reportable 04/09/18 00:27 Smudge Cells Not Reportable 04/09/18 00:27 Toxic Granulation Not Reportable 04/09/18 00:27 Toxic Vacuolation Not Reportable 04/09/18 00:27 Dohle Bodies Not Reportable 04/09/18 00:27 Pelger-Huet Anomaly Not Reportable 04/09/18 00:27 Rene Rods Not Reportable 04/09/18 00:27 Platelet Estimate Consistent w auto 04/09/18 00:27 Clumped Platelets Not Reportable 04/09/18 00:27 Plt Clumps, EDTA Not Reportable 04/09/18 00:27 Large Platelets Not Reportable 04/09/18 00:27 Giant Platelets Not Reportable 04/09/18 00:27 Platelet Satelliting Not Reportable 04/09/18 00:27 Plt Morphology Comment Not Reportable 04/09/18 00:27 RBC Morphology Not Reportable 04/09/18 00:27 Dimorphic RBCs Not Reportable 04/09/18 00:27 Polychromasia Not Reportable 04/09/18 00:27 Hypochromasia 1+ 04/09/18 00:27 Poikilocytosis Not Reportable 04/09/18 00:27 Anisocytosis 1+ 04/09/18 00:27 Microcytosis Not Reportable 04/09/18 00:27 Macrocytosis Not Reportable 04/09/18 00:27 Spherocytes Not Reportable 04/09/18 00:27 Pappenheimer Bodies Not Reportable 04/09/18 00:27 Sickle Cells Not Reportable 04/09/18 00:27 Target Cells Not Reportable 04/09/18 00:27 Tear Drop Cells Not Reportable 04/09/18 00:27 Ovalocytes Not Reportable 04/09/18 00:27 Helmet Cells Not Reportable 04/09/18 00:27 Maldonado-Ballard Bodies Not Reportable 04/09/18 00:27 Ethel Rings Not Reportable 04/09/18 00:27 Ric Cells Not Reportable 04/09/18 00:27 Bite Cells Not Reportable 04/09/18 00:27 Crenated Cell Not Reportable 04/09/18 00:27 Elliptocytes Not Reportable 04/09/18 00:27 Acanthocytes (Spur) Not Reportable 04/09/18 00:27 Rouleaux Not Reportable 04/09/18 00:27 Hemoglobin C Crystals Not Reportable 04/09/18 00:27 Schistocytes Not Reportable 04/09/18 00:27 Malaria parasites Not Reportable 04/09/18 00:27 Ajay Bodies Not Reportable 04/09/18 00:27 Hem Pathologist Commnt No 04/09/18 00:27 POC ABG pH 7.466 (7.35-7.45) H 04/09/18 12:42 POC ABG pCO2 24.6 (35-45) L 04/09/18 12:42 POC ABG pO2 120 (80-105) H 04/09/18 12:42 POC ABG HCO3 17.7 04/09/18 12:42 POC ABG Total CO2 18 04/09/18 12:42 POC ABG O2 Sat 99 04/09/18 12:42 POC ABG Base Excess -6 04/09/18 12:42 FiO2 28 % 04/09/18 12:42 Sodium 139 mmol/L (137-145) 04/13/18 04:50 Potassium 4.7 mmol/L (3.6-5.0) D 04/13/18 04:50 Chloride 111.1 mmol/L (98-107) H 04/13/18 04:50 Carbon Dioxide 18 mmol/L (22-30) L 04/13/18 04:50 Anion Gap 15 mmol/L 04/13/18 04:50 BUN 12 mg/dL (7-17) 04/13/18 04:50 Creatinine 0.5 mg/dL (0.7-1.2) L 04/13/18 04:50 Estimated GFR > 60 ml/min 04/13/18 04:50 BUN/Creatinine Ratio 24 % 04/13/18 04:50 Glucose 142 mg/dL (65-100) H 04/13/18 04:50 POC Glucose 179 (70-105) H 04/13/18 10:15 Lactic Acid 1.60 mmol/L (0.7-2.0) 04/08/18 23:30 Calcium 7.1 mg/dL (8.4-10.2) L 04/13/18 04:50 Phosphorus 3.30 mg/dL (2.5-4.5) D 04/13/18 04:50 Magnesium 2.60 mg/dL (1.7-2.3) H 04/09/18 16:50 Total Bilirubin 0.30 mg/dL (0.1-1.2) 04/08/18 02:50 AST 74 units/L (5-40) H 04/08/18 02:50 ALT 96 units/L (7-56) H 04/08/18 02:50 Alkaline Phosphatase 70 units/L (35-129) 04/08/18 02:50 Total Creatine Kinase 1194 units/L (30-135) H 04/08/18 12:46 CK-MB (CK-2) 5.1 ng/mL (0.0-4.0) H 04/08/18 12:46 CK-MB (CK-2) Rel Index 0.4 (0-4) 04/08/18 12:46 Troponin T 0.018 ng/mL (0.00-0.029) 04/08/18 12:46 Total Protein 6.2 g/dL (6.3-8.2) L 04/08/18 02:50 Albumin 2.7 g/dL (3.9-5) L 04/08/18 02:50 Albumin/Globulin Ratio 0.8 % 04/08/18 02:50 Triglycerides 247 mg/dL (2-149) H 04/08/18 02:50 Cholesterol 116 mg/dL (50-199) 04/08/18 02:50 LDL Cholesterol Direct 55 mg/dL (50-130) 04/08/18 02:50 HDL Cholesterol 36 mg/dL (40-59) L 04/08/18 02:50 Cholesterol/HDL Ratio 3.22 % 04/08/18 02:50 TSH 0.753 mlU/mL (0.270-4.200) 04/09/18 16:50 Free T4 1.13 ng/dL (0.76-1.46) 04/09/18 16:50 PTH Intact 169.6 pg/mL (15-65) H 04/11/18 05:19 Urine Color Yellow (Yellow) 04/08/18 02:57 Urine Turbidity Turbid (Clear) 04/08/18 02:57 Urine pH 6.0 (5.0-7.0) 04/08/18 02:57 Ur Specific [place] 1.014 (1.003-1.030) 04/08/18 02:57 Urine Protein 100 mg/dl mg/dL (Negative) 04/08/18 02:57 Urine Glucose (UA) Neg mg/dL (Negative) 04/08/18 02:57 Urine Ketones Tr mg/dL (Negative) 04/08/18 02:57 Urine Blood Sm (Negative) 04/08/18 02:57 Urine Nitrite Neg (Negative) 04/08/18 02:57 Urine Bilirubin Neg (Negative) 04/08/18 02:57 Urine Urobilinogen 2.0 mg/dL (<2.0) 04/08/18 02:57 Ur Leukocyte Esterase Mod (Negative) 04/08/18 02:57 Urine WBC (Auto) > 182.0 /HPF (0.0-6.0) H 04/08/18 02:57 Urine RBC (Auto) 23.0 /HPF (0.0-6.0) 04/08/18 02:57 Urine Bacteria (Auto) 4+ /HPF (Negative) 04/08/18 02:57 Calcium Oxalate Crystal 2+ 04/08/18 02:57 Amorphous Crystals 2+ 04/08/18 02:57 Urine Creatinine 24.0 mg/dL (0.1-20.0) H 04/08/18 15:18 Protein/Creatinin Ratio 2.38 04/08/18 15:18 Urine Sodium 60 mmol/L 04/08/18 15:43 Urine Total Protein 57 mg/dL (5-11.8) H 04/08/18 15:18 Digoxin 1.1 ng/mL (0.9-2.0) 04/09/18 01:23 Group A Strep Rapid Negative (Negative) 04/08/18 00:35 Blood Type O POSITIVE 04/11/18 05:19 Antibody Screen Negative 04/11/18 05:19 Crossmatch See Detail 04/11/18 05:19 - Imaging and Cardiology Chest x-ray: report reviewed, image reviewed Imaging and Cardiology: Echocardiogram Nutrition/Malnutrition Assess - Dietary Evaluation Nutrition/Malnutrition Findings: Nutrition Notes Start: 04/09/18 16:11 Freq: Status: Active Protocol: Document 04/11/18 11:59 KH (Rec: 04/11/18 12:58 KH [email or web address]) Co-Sign 04/11/18 11:59 OL Nutrition Notes Initial or Follow up Brief Note Current Diet NPO Subjective/Other Information During interdisciplinary rounds, MD requested to restart TF. Nutrition Intervention Nutrition Support: Glucerna 1.2 at 50 ml/hr with water flush of 80ml q4h or per MD Kcal 1,152 Protein (gm) 72 Fluid (mL) 966 Follow-Up By: 04/15/18 Additional Comments F/u: new TF
[2018-04-13] MEDS ORDERED: SIMPLE SYRUP FEEDTUBE PRN ×2 (16:14)
[2018-04-13] MEDS ORDERED: PANCREAZE DR 10,500 UNIT FEEDTUBE PRN (16:14)
[2018-04-13] MEDS ORDERED: SODIUM BICARBONATE FEEDTUBE PRN (16:14)
[2018-04-13] MEDS: PRAVACHOL PO SCH (22:19)
[2018-04-14] MEDS: SYNTHROID PO SCH (05:50)
[2018-04-14] MEDS: MAXIPIME/NS 1 GM/100 ML 1 GM/100 ML BAG IV SCH ×3 (05:50→22:08)
[2018-04-14 06:08] LABS: Basophils % (Auto) 0.3 % (0.0-1.8); Eosinophils # (Auto) 0.1 K/mm3 (0.0-0.4); Eosinophils % (Auto) 1.2 % (0.0-4.3); Hemoglobin 8.5 gm/dl (10.1-14.3); Lymphocytes # (Auto) 0.9 K/mm3 (1.2-5.4); Lymphocytes % (Auto) 9.1 % (13.4-35.0); Mean Corpuscular HGB Conc 33 % (30-34); Mean Corpuscular Volume 91 fl (79-97); Monocytes # (Auto) 0.5 K/mm3 (0.0-0.8); Monocytes % (Auto) 5.1 % (0.0-7.3); Platelet Count 192 K/mm3 (140-440); Red Blood Count 2.86 M/mm3 (3.65-5.03); Red Cell Distribution Width 16.9 % (13.2-15.2)
[2018-04-14 06:24] LABS: BUN/Creatinine Ratio 25; Blood Urea Nitrogen 10 mg/dL (7-17); Calcium 7.3 mg/dL (8.4-10.2); Hemolysis Index 11
--- NOTE | 2018-04-14 09:07 | Progress Note ---
Assessment and Plan Cultures: 04/08/2018 blood cultures: 1 out of 4 bottles positive for CoNS 04/08/2018 urine culture: 10-100K mixed bacteria 04/08/2018 GAS neg 04/10/2018 Stool culture neg, [place] ag neg, Cryptosporidium ag neg A/P: 87-year-old female with prior CVA, right-sided hemiplegia, aphasia, CHF, diabetes mellitus, vascular dementia who is a residential resident, admitted with: #1 Septic shock: shock, fever, leukocytosis resolved; Source is likely urine. UA with significant pyuria. Chest x-ray not concerning for an obvious pneumonia. #2 Urinary tract infection: urine culture 10-100K mixed bacteria, still thick sediment and significant pyuria #3 Acute on chronic encephalopathy: Likely metabolic and septic in etiology. #4 Acute kidney injury: resolved. #5 CoNS bacteremia: One out of 4 bottles positive for CoNS, likely contaminant. No further work up needed. Recs: continue IV Cefepime dose to 1 gm q8 hrs obtain renal/bladder US r/o hydro, stones, pyelonephritis Will follow. MD La[facility] C: [phone] O: [phone] F: [phone] Subjective Date of service: 04/14/18 Principal diagnosis: Severe sepsis with shock; UTI; ITZEL; Hypernatremia Interval history: Patient is at baseline aphasic, currently non verbal, no acute changes per nursings staff, no need for pressors, no fever x 2 days Objective - Exam Narrative Exam: Constitutional: Alert, in NAD on NC O2, non verbal Head, Ears, Nose, oral: Normocephalic, atraumatic. External ears, nose normal, OP clear Eyes: Conjunctivae/corneas clear. No icterus. No ptosis. Neck: Supple, no meningeal signs Cardiovascular: RRR Respiratory: Good air entry, clear to auscultation bilaterally GI: Soft, non-tender; bowel sounds normal. No peritoneal signs Musculoskeletal: No pedal edema, no cyanosis. Skin: No rash or abscess Hem/Lymphatic: No palpable cervical or supraclavicular nodes. No lymphangitis Psych: no agitation Neurological: awake, non verbal. Abbott removed with still gross pyuria/ PICC line - Constitutional Vitals: Vital Signs Temp Pulse Resp BP Pulse Ox 98.9 F 92 H 22 99/64 98 04/14/18 03:29 04/14/18 06:00 04/14/18 06:00 04/14/18 06:00 04/14/18 06:00 Temperature -Last 24 Hours Temperature 98.9 F Temperature 98.5 F Temperature 97.2 F Temperature 98.2 F Temperature 98.8 F - Labs CBC & Chem 7: 04/14/18 05:30 04/14/18 05:30 Labs: Abnormal lab results 04/11/18 04/13/18 04/13/18 Range/Units 05:19 10:15 18:18 RBC (3.65-5.03) M/mm3 Hgb (10.1-14.3) gm/dl Hct (30.3-42.9) % RDW (13.2-15.2) % Lymph % (Auto) (13.4-35.0) % Lymph # (1.2-5.4) K/mm3 Seg Neutrophils % (40.0-70.0) % Seg Neutrophils # (1.8-7.7) K/mm3 Chloride (98-107) mmol/L Carbon Dioxide (22-30) mmol/L Creatinine (0.7-1.2) mg/dL Glucose (65-100) mg/dL POC Glucose 179 H 157 H (70-105) Calcium (8.4-10.2) mg/dL Ionized Calcium 4.5 L (4.8-5.6) mg/dL Phosphorus (2.5-4.5) mg/dL 04/13/18 04/14/18 04/14/18 Range/Units 23:39 05:19 05:30 RBC 2.86 L (3.65-5.03) M/mm3 Hgb 8.5 L (10.1-14.3) gm/dl Hct 26.0 L (30.3-42.9) % RDW 16.9 H (13.2-15.2) % Lymph % (Auto) 9.1 L (13.4-35.0) % Lymph # 0.9 L (1.2-5.4) K/mm3 Seg Neutrophils % 84.3 H (40.0-70.0) % Seg Neutrophils # 8.0 H (1.8-7.7) K/mm3 Chloride (98-107) mmol/L Carbon Dioxide (22-30) mmol/L Creatinine (0.7-1.2) mg/dL Glucose (65-100) mg/dL POC Glucose 211 H 175 H (70-105) Calcium (8.4-10.2) mg/dL Ionized Calcium (4.8-5.6) mg/dL Phosphorus (2.5-4.5) mg/dL 04/14/18 Range/Units 05:30 RBC (3.65-5.03) M/mm3 Hgb (10.1-14.3) gm/dl Hct (30.3-42.9) % RDW (13.2-15.2) % Lymph % (Auto) (13.4-35.0) % Lymph # (1.2-5.4) K/mm3 Seg Neutrophils % (40.0-70.0) % Seg Neutrophils # (1.8-7.7) K/mm3 Chloride 110.0 H (98-107) mmol/L Carbon Dioxide 20 L (22-30) mmol/L Creatinine 0.4 L (0.7-1.2) mg/dL Glucose 171 H (65-100) mg/dL POC Glucose (70-105) Calcium 7.3 L (8.4-10.2) mg/dL Ionized Calcium (4.8-5.6) mg/dL Phosphorus 1.70 L D (2.5-4.5) mg/dL
--- NOTE | 2018-04-14 09:10 | Progress Note ---
Assessment and Plan septic shock secondary to urosepsis acute renal failure secondary to ischemic ATN hypernatremia secondary to low oral intake Anemia in chronic disease hypokalemia hypocalcemia metabolic acidosis - ITZEL resolved - cont bicitra 30 cc TID and Calcium carbonate TID between meals - renally dose meds - strict I&O - daily weight will sign off, please re consult if needed Thank you for allowing to participate in Ms Cole's care Mike Herrera MD [phone] Subjective Date of service: 04/14/18 Principal diagnosis: Severe sepsis with shock; UTI; ITZEL; Hypernatremia Interval history: resting comfortably, no family at bedside Objective - Vital Signs Vital signs: Vital Signs - 12hr 04/13/18 04/13/18 04/13/18 22:00 22:16 23:00 Temperature Pulse Rate 70 68 77 Respiratory 24 24 22 Rate Blood Pressure 112/64 121/69 118/68 O2 Sat by Pulse 99 100 96 Oximetry 04/13/18 04/14/18 04/14/18 23:30 00:00 01:00 Temperature 98.5 F Pulse Rate 90 95 H Respiratory 22 23 Rate Blood Pressure 109/64 118/69 O2 Sat by Pulse 96 94 Oximetry 04/14/18 04/14/18 04/14/18 02:00 03:00 03:29 Temperature 98.9 F Pulse Rate 107 H 87 Respiratory 21 22 Rate Blood Pressure 113/57 108/61 O2 Sat by Pulse 99 97 Oximetry 04/14/18 04/14/18 04/14/18 04:00 05:00 06:00 Temperature Pulse Rate 100 H 84 92 H Respiratory 23 24 22 Rate Blood Pressure 116/70 114/60 99/64 O2 Sat by Pulse 99 99 98 Oximetry - General Appearance General appearance: well-developed, well-nourished, appears stated age EENT: ATNC, PERRL Neck: no JVD Respiratory: Present: Clear to Ascultation. Absent: Rales, Ronchi Cardiology: regular, S1S2 Gastrointestinal: normoactive bowel sounds Integumentary: no rash, warm and dry Neurologic: other (folows simple commands) Musculoskeletal: other (trace pitting edema in BLE) Psychiatric: mood/affect appropriate - Lab 04/14/18 05:30 04/14/18 05:30 Most recent lab results Calcium 7.3 mg/dL (8.4-10.2) L 04/14/18 05:30 Phosphorus 1.70 mg/dL (2.5-4.5) L D 04/14/18 05:30 Magnesium 2.60 mg/dL (1.7-2.3) H 04/09/18 16:50 Urine Creatinine 24.0 mg/dL (0.1-20.0) H 04/08/18 15:18 Urine Sodium 60 mmol/L 04/08/18 15:43 Urine Total Protein 57 mg/dL (5-11.8) H 04/08/18 15:18 Medications & Allergies - Medications Allergies/Adverse Reactions: Allergies No Known Allergies Allergy (Verified 04/08/18 02:43) Home Medications: Home Medications Medication Instructions Recorded Confirmed Last Taken Type Docusate Sodium [Colace CAP] 100 mg PO BID PRN 06/18/16 04/08/18 04/07/18 History Apixaban [Eliquis] 2.5 mg PO Q12HR #60 tablet 08/12/16 04/08/18 04/07/18 Rx Levothyroxine [Synthroid] 75 mcg PO DAILY@0600 #30 tablet 08/12/16 04/08/18 04/07/18 Rx Simvastatin (Nf) [Zocor TAB] 40 mg PO QHS #30 tablet 08/12/16 04/08/18 04/07/18 Rx Acetaminophen [Tylenol] 325 mg PO PRN 04/08/18 04/08/18 04/07/18 History Digoxin [Lanoxin] 0.125 mg PO DAILY 04/08/18 04/08/18 04/07/18 History Insulin Detemir [Levemir Flextouch] 100 unit SQ DAILY 04/08/18 04/08/18 04/07/18 History Lisinopril [Prinivil] 5 mg PO DAILY 04/08/18 04/08/18 04/07/18 History Metoclopramide HCl 5 mg PO Q6HR 04/08/18 04/08/18 04/07/18 History Metoprolol Tartrate 25 mg PO TID 04/08/18 04/08/18 04/07/18 History Potassium Chloride [Klor-Con] 20 meq PO DAILY 04/08/18 04/08/18 04/07/18 History Simvastatin 40 mg PO DAILY 04/08/18 04/08/18 04/07/18 History Torsemide [Demadex] 20 mg PO DAILY 04/08/18 04/08/18 04/07/18 History Active Medications: Generic Name Dose Route Start Last Admin Trade Name Freq PRN Reason Stop Dose Admin Acetaminophen 650 mg 04/08/18 03:22 04/12/18 14:22 Tylenol FEEDTUBE 650 mg Q6H PRN Administration Pain, Mild (1-3) Albuterol/Ipratropium 1 ampul 04/14/18 08:00 Duoneb *Not For Prn Use* IH BIDRT JUNIOR Lipase/Protease/Amylase 1 each 04/11/18 12:00 Pancrealexander Del Real 10,500 Unit FEEDTUBE PRN PRN For Clogged Feeding Tube Calcium Carbonate/Glycine 1,250 mg 04/13/18 14:00 04/13/18 19:41 Oscal PO 1,250 mg TID JUNIOR Administration Citric Acid/Sodium Citrate 30 ml 04/13/18 10:00 04/13/18 19:42 Bicitra PO 30 ml TID JUNIOR Administration Docusate Sodium 100 mg 04/08/18 05:04 Colace PO BID PRN Constipation Donepezil HCl 5 mg 04/08/18 10:00 04/13/18 09:15 Aricept PO 5 mg QDAY JUNIOR Administration Ferrous Sulfate 325 mg 04/08/18 10:00 04/13/18 09:15 Feosol PO 325 mg QDAY JUNIOR Administration Norepinephrine 4 mg in 250 mls @ 7.5 mls/hr 04/09/18 12:00 04/09/18 18:35 Levophed Drip 4 Mg/Ns 250 Ml IV 0 mcg/min TITR JUNIOR 0 mls/hr Titration Protocol 2 MCG/MIN Cefepime HCl 1 gm in 100 mls @ 200 mls/hr 04/12/18 14:00 04/14/18 05:50 Maxipime/Ns 1 Gm/100 Ml IV 200 mls/hr Q8HR JUNIOR Administration Protocol Lansoprazole 30 mg 04/12/18 19:00 04/13/18 09:15 Prevacid Solutab FEEDTUBE 30 mg QDAY JUNIOR Administration Levothyroxine Sodium 75 mcg 04/08/18 06:00 04/14/18 05:50 Synthroid PO 75 mcg DAILY@0600 JUNIOR Administration Midodrine 5 mg 04/10/18 16:00 04/13/18 15:42 Proamatine PO 5 mg TID@0800,1200,1600 JUNIOR Administration Ondansetron HCl 4 mg 04/08/18 04:59 Zofran IV Q8H PRN Nausea And Vomiting Pravastatin Sodium 80 mg 04/08/18 22:00 04/13/18 22:19 Pravachol PO 80 mg QHS JUNIOR Administration Simple Syrup 15 ml 04/11/18 12:00 Simple Syrup FEEDTUBE PRN PRN Hypoglycemia Simple Syrup 30 ml 04/11/18 11:30 Simple Syrup FEEDTUBE PRN PRN Hypoglycemia
[2018-04-14] MEDS: DUONEB *Not for PRN Use IH SCH ×2 (09:17→19:13)
--- NOTE | 2018-04-14 09:20 | Progress Note ---
Assessment and Plan Assessment and plan: - Patient Problems (1) Anemia due to GI blood loss Current Visit: Yes Status: Acute Plan to address problem: Patient anemia secondary to GI blood loss. She was on elOquis for DVT Recently discontinue elaquis and treat with low-dose aspirin for now. No further evidence of GI bleed hemoglobin and hematocrit remains intact. (2) Altered mental status Current Visit: No Status: Acute Plan to address problem: Multifactorial secondary to past acute CVA and current abscesses syndrome. (3) Atrial fibrillation with RVR Current Visit: No Status: Acute (4) CHF (congestive heart failure) Current Visit: No Status: Acute (5) Acute kidney injury Current Visit: Yes Status: Acute (6) Severe sepsis SECONDARY TO UTI Current Visit: Yes Status: Acute Plan to address problem: Patient with severe sepsis now improving with IV antibiotics. Patient has decreased white blood cell count and improving renal insufficiency as well as afebrile. TU present medical management IV antibiotics. Urine culture was SHOWS CONTAMINATION. History Interval history: Patient nonverbal currently not able to answer any questions. Patient was admitted due to acute GI blood loss anemia. Plan discharge back to intermediate on Sunday the patient remains hemodynamically stable. At present stable now. FAMILY AT BEDSIDE ALL QUESTIONS ANSWERED Hospitalist Physical - Physical exam Narrative exam: General appearance: Present: no acute distress, other (lethargic, nonverbal) - EENT Eyes: Present: PERRL, EOM intact ENT: no hearing intact, no clear oral mucosa, no dentition normal - Neck Neck: Present: supple, normal ROM. Absent: rigidity, enlarged thyroid, masses or JVD, cervical LAD - Respiratory Respiratory: negative: CTA, rhonchi (few and bilateral) - Cardiovascular Rhythm: irregularly irregular Heart Sounds: Present: S1 & S2, gallop - Extremities Extremities: no ischemia, pulses intact, No edema, normal temperature, normal color, Full ROM, abnormal Extremity abnormal: edema Peripheral Pulses: within normal limits - Abdominal General gastrointestinal: soft, non-distended - Integumentary Integumentary: Present: clear - Psychiatric Psychiatric: other (nonverbal bedbound) - Neurologic Neurologic: focal deficits Abbott - Constitutional Vitals: Temp Pulse Resp BP Pulse Ox 98.9 F 92 H 22 99/64 98 04/14/18 03:29 04/14/18 06:00 04/14/18 06:00 04/14/18 06:00 04/14/18 06:00 General appearance: Present: no acute distress, other (lethargic, nonverbal) Results - Labs CBC & Chem 7: 04/15/18 06:00 04/15/18 06:00 Labs: Laboratory Last Values WBC 9.5 K/mm3 (4.5-11.0) 04/14/18 05:30 RBC 2.86 M/mm3 (3.65-5.03) L 04/14/18 05:30 Hgb 8.5 gm/dl (10.1-14.3) L 04/14/18 05:30 Hct 26.0 % (30.3-42.9) L 04/14/18 05:30 MCV 91 fl (79-97) 04/14/18 05:30 MCH 30 pg (28-32) 04/14/18 05:30 MCHC 33 % (30-34) 04/14/18 05:30 RDW 16.9 % (13.2-15.2) H 04/14/18 05:30 Plt Count 192 K/mm3 (140-440) 04/14/18 05:30 Lymph % (Auto) 9.1 % (13.4-35.0) L 04/14/18 05:30 [place] % (Auto) 5.1 % (0.0-7.3) 04/14/18 05:30 Eos % (Auto) 1.2 % (0.0-4.3) 04/14/18 05:30 Baso % (Auto) 0.3 % (0.0-1.8) 04/14/18 05:30 Lymph # 0.9 K/mm3 (1.2-5.4) L 04/14/18 05:30 [place] # 0.5 K/mm3 (0.0-0.8) 04/14/18 05:30 Eos # 0.1 K/mm3 (0.0-0.4) 04/14/18 05:30 Baso # 0.0 K/mm3 (0.0-0.1) 04/14/18 05:30 Add Manual Diff Complete 04/09/18 00:27 Total Counted 100 04/09/18 00:27 Seg Neutrophils % 84.3 % (40.0-70.0) H 04/14/18 05:30 Seg Neuts % (Manual) 89.0 % (40.0-70.0) H 04/09/18 00:27 Band Neutrophils % 6.0 % 04/09/18 00:27 Lymphocytes % (Manual) 5.0 % (13.4-35.0) L 04/09/18 00:27 Reactive Lymphs % (Man) 0 % 04/09/18 00:27 Monocytes % (Manual) 0 % (0.0-7.3) 04/09/18 00:27 Eosinophils % (Manual) 0 % (0.0-4.3) 04/09/18 00:27 Basophils % (Manual) 0 % (0.0-1.8) 04/09/18 00:27 Metamyelocytes % 0 % 04/09/18 00:27 Myelocytes % 0 % 04/09/18 00:27 Promyelocytes % 0 % 04/09/18 00:27 Blast Cells % 0 % 04/09/18 00:27 Nucleated RBC % Not Reportable 04/09/18 00:27 Seg Neutrophils # 8.0 K/mm3 (1.8-7.7) H 04/14/18 05:30 Seg Neutrophils # Man 12.9 K/mm3 (1.8-7.7) H 04/09/18 00:27 Band Neutrophils # 0.9 K/mm3 04/09/18 00:27 Lymphocytes # (Manual) 0.7 K/mm3 (1.2-5.4) L 04/09/18 00:27 Abs React Lymphs (Man) 0.0 K/mm3 04/09/18 00:27 Monocytes # (Manual) 0.0 K/mm3 (0.0-0.8) 04/09/18 00:27 Eosinophils # (Manual) 0.0 K/mm3 (0.0-0.4) 04/09/18 00:27 Basophils # (Manual) 0.0 K/mm3 (0.0-0.1) 04/09/18 00:27 Metamyelocytes # 0.0 K/mm3 04/09/18 00:27 Myelocytes # 0.0 K/mm3 04/09/18 00:27 Promyelocytes # 0.0 K/mm3 04/09/18 00:27 Blast Cells # 0.0 K/mm3 04/09/18 00:27 WBC Morphology Not Reportable 04/09/18 00:27 Hypersegmented Neuts Not Reportable 04/09/18 00:27 Hyposegmented Neuts Not Reportable 04/09/18 00:27 Hypogranular Neuts Not Reportable 04/09/18 00:27 Smudge Cells Not Reportable 04/09/18 00:27 Toxic Granulation Not Reportable 04/09/18 00:27 Toxic Vacuolation Not Reportable 04/09/18 00:27 Dohle Bodies Not Reportable 04/09/18 00:27 Pelger-Huet Anomaly Not Reportable 04/09/18 00:27 Rene Rods Not Reportable 04/09/18 00:27 Platelet Estimate Consistent w auto 04/09/18 00:27 Clumped Platelets Not Reportable 04/09/18 00:27 Plt Clumps, EDTA Not Reportable 04/09/18 00:27 Large Platelets Not Reportable 04/09/18 00:27 Giant Platelets Not Reportable 04/09/18 00:27 Platelet Satelliting Not Reportable 04/09/18 00:27 Plt Morphology Comment Not Reportable 04/09/18 00:27 RBC Morphology Not Reportable 04/09/18 00:27 Dimorphic RBCs Not Reportable 04/09/18 00:27 Polychromasia Not Reportable 04/09/18 00:27 Hypochromasia 1+ 04/09/18 00:27 Poikilocytosis Not Reportable 04/09/18 00:27 Anisocytosis 1+ 04/09/18 00:27 Microcytosis Not Reportable 04/09/18 00:27 Macrocytosis Not Reportable 04/09/18 00:27 Spherocytes Not Reportable 04/09/18 00:27 Pappenheimer Bodies Not Reportable 04/09/18 00:27 Sickle Cells Not Reportable 04/09/18 00:27 Target Cells Not Reportable 04/09/18 00:27 Tear Drop Cells Not Reportable 04/09/18 00:27 Ovalocytes Not Reportable 04/09/18 00:27 Helmet Cells Not Reportable 04/09/18 00:27 [place] Bodies Not Reportable 04/09/18 00:27 [place] Rings Not Reportable 04/09/18 00:27 [place] Cells Not Reportable 04/09/18 00:27 Bite Cells Not Reportable 04/09/18 00:27 Crenated Cell Not Reportable 04/09/18 00:27 Elliptocytes Not Reportable 04/09/18 00:27 Acanthocytes (Spur) Not Reportable 04/09/18 00:27 Rouleaux Not Reportable 04/09/18 00:27 Hemoglobin C Crystals Not Reportable 04/09/18 00:27 Schistocytes Not Reportable 04/09/18 00:27 Malaria parasites Not Reportable 04/09/18 00:27 Ajay Bodies Not Reportable 04/09/18 00:27 Hem Pathologist Commnt No 04/09/18 00:27 POC ABG pH 7.466 (7.35-7.45) H 04/09/18 12:42 POC ABG pCO2 24.6 (35-45) L 04/09/18 12:42 POC ABG pO2 120 (80-105) H 04/09/18 12:42 POC ABG HCO3 17.7 04/09/18 12:42 POC ABG Total CO2 18 04/09/18 12:42 POC ABG O2 Sat 99 04/09/18 12:42 POC ABG Base Excess -6 04/09/18 12:42 FiO2 28 % 04/09/18 12:42 Sodium 140 mmol/L (137-145) 04/14/18 05:30 Potassium 4.0 mmol/L (3.6-5.0) 04/14/18 05:30 Chloride 110.0 mmol/L (98-107) H 04/14/18 05:30 Carbon Dioxide 20 mmol/L (22-30) L 04/14/18 05:30 Anion Gap 14 mmol/L 04/14/18 05:30 BUN 10 mg/dL (7-17) 04/14/18 05:30 Creatinine 0.4 mg/dL (0.7-1.2) L 04/14/18 05:30 Estimated GFR > 60 ml/min 04/14/18 05:30 BUN/Creatinine Ratio 25 % 04/14/18 05:30 Glucose 171 mg/dL (65-100) H 04/14/18 05:30 POC Glucose 175 (70-105) H 04/14/18 05:19 Lactic Acid 1.60 mmol/L (0.7-2.0) 04/08/18 23:30 Calcium 7.3 mg/dL (8.4-10.2) L 04/14/18 05:30 Ionized Calcium 4.5 mg/dL (4.8-5.6) L 04/11/18 05:19 Phosphorus 1.70 mg/dL (2.5-4.5) L D 04/14/18 05:30 Magnesium 2.60 mg/dL (1.7-2.3) H 04/09/18 16:50 Total Bilirubin 0.30 mg/dL (0.1-1.2) 04/08/18 02:50 AST 74 units/L (5-40) H 04/08/18 02:50 ALT 96 units/L (7-56) H 04/08/18 02:50 Alkaline Phosphatase 70 units/L (35-129) 04/08/18 02:50 Total Creatine Kinase 1194 units/L (30-135) H 04/08/18 12:46 CK-MB (CK-2) 5.1 ng/mL (0.0-4.0) H 04/08/18 12:46 CK-MB (CK-2) Rel Index 0.4 (0-4) 04/08/18 12:46 Troponin T 0.018 ng/mL (0.00-0.029) 04/08/18 12:46 Total Protein 6.2 g/dL (6.3-8.2) L 04/08/18 02:50 Albumin 2.7 g/dL (3.9-5) L 04/08/18 02:50 Albumin/Globulin Ratio 0.8 % 04/08/18 02:50 Triglycerides 247 mg/dL (2-149) H 04/08/18 02:50 Cholesterol 116 mg/dL (50-199) 04/08/18 02:50 LDL Cholesterol Direct 55 mg/dL (50-130) 04/08/18 02:50 HDL Cholesterol 36 mg/dL (40-59) L 04/08/18 02:50 Cholesterol/HDL Ratio 3.22 % 04/08/18 02:50 TSH 0.753 mlU/mL (0.270-4.200) 04/09/18 16:50 Free T4 1.13 ng/dL (0.76-1.46) 04/09/18 16:50 PTH Intact 169.6 pg/mL (15-65) H 04/11/18 05:19 Urine Color Yellow (Yellow) 04/08/18 02:57 Urine Turbidity Turbid (Clear) 04/08/18 02:57 Urine pH 6.0 (5.0-7.0) 04/08/18 02:57 Ur Specific [place] 1.014 (1.003-1.030) 04/08/18 02:57 Urine Protein 100 mg/dl mg/dL (Negative) 04/08/18 02:57 Urine Glucose (UA) Neg mg/dL (Negative) 04/08/18 02:57 Urine Ketones Tr mg/dL (Negative) 04/08/18 02:57 Urine Blood Sm (Negative) 04/08/18 02:57 Urine Nitrite Neg (Negative) 04/08/18 02:57 Urine Bilirubin Neg (Negative) 04/08/18 02:57 Urine Urobilinogen 2.0 mg/dL (<2.0) 04/08/18 02:57 Ur Leukocyte Esterase Mod (Negative) 04/08/18 02:57 Urine WBC (Auto) > 182.0 /HPF (0.0-6.0) H 04/08/18 02:57 Urine RBC (Auto) 23.0 /HPF (0.0-6.0) 04/08/18 02:57 Urine Bacteria (Auto) 4+ /HPF (Negative) 04/08/18 02:57 Calcium Oxalate Crystal 2+ 04/08/18 02:57 Amorphous Crystals 2+ 04/08/18 02:57 Urine Creatinine 24.0 mg/dL (0.1-20.0) H 04/08/18 15:18 Protein/Creatinin Ratio 2.38 04/08/18 15:18 Urine Sodium 60 mmol/L 04/08/18 15:43 Urine Total Protein 57 mg/dL (5-11.8) H 04/08/18 15:18 Digoxin 1.1 ng/mL (0.9-2.0) 04/09/18 01:23 Group A Strep Rapid Negative (Negative) 04/08/18 00:35 Blood Type O POSITIVE 04/11/18 05:19 Antibody Screen Negative 04/11/18 05:19 Crossmatch See Detail 04/11/18 05:19 Nutrition/Malnutrition Assess - Dietary Evaluation Nutrition/Malnutrition Findings: Nutrition Notes Start: 04/09/18 16:11 Freq: Status: Active Protocol: Document 04/13/18 16:07 CHRISTINEHAILEE (Rec: 04/13/18 16:14 LETY [id number] [email or web address]) Nutrition Notes Initial or Follow up Reassessment Current Diagnosis Diabetes Sepsis Hypertension Heart Failure Stroke Other Pertinent Diagnosis R sided hemiplegia, aphasia, dementia, A.fib Current Diet NPO Labs/Tests Reviewed Pertinent Medications Reviewed Height 4 ft 10 in Weight 62.2 kg [place] Body Weight (lbs) 90.0 BMI 28.6 Weight change and time frame Wt change noted Subjective/Other Information RD consulted for TF. Pt s/p EGD yesterday. Burn Absent Trauma Absent #1 Nutrition Diagnosis Inadequate oral intake Diagnosis Progress(for reassessment Continues documentation) Is patient on ventilator? No Is Patient Ambulatory and/or Out of Bed No REE-([facility]-confined to bed) 1137.804 Kcal/Kg value to use for calculation 30 Approximate Energy Requirements Using 1866 kcal/Kg Calculation Used for Recommendations [facility] Additional Notes Pro needs 1.2-2g/k-93g/ day Fluid needs 1ml/kcal Nutrition Intervention Nutrition Support: Glucerna 1.2 at 50ml/hr with 80ml water flush q4h. Kcal 1,440 Protein (gm) 72 Carbohydrates (gm) 137 Fluid (mL) 966 Fiber (gm) 19 Goal #1 TF tolerance Goal #2 TF to meet 90-100% energy and pro needs Anticipated Discharge Needs: Continue Glucerna 1.2 at 50ml/ hr with 80ml water flush q4h. Follow-Up By: 04/14/18 Additional Comments F/U: new TF
[2018-04-14] MEDS: BICITRA PO SCH ×3 (10:40→22:10)
[2018-04-14] MEDS: OSCAL PO SCH ×3 (10:41→22:10)
[2018-04-14] MEDS: FEOSOL PO SCH (10:43)
[2018-04-14] MEDS: PROAMATINE PO SCH ×3 (10:43→16:00)
[2018-04-14] MEDS: PREVACID SOLUTAB FEEDTUBE SCH (10:43)
[2018-04-14] MEDS: ARICEPT PO SCH (10:43)
--- NOTE | 2018-04-14 10:45 | Progress Note ---
Assessment and Plan Cardiac rhythm is satisfactory. Bleeding appears to be stable at this time. Discussed with the family. Continue current management. No significant change in the cardiac status. Not on anticoagulation because of GI bleeding. Overall prognosis remains guarded due to multiple medical issues. - Patient Problems (1) Chronic atrial fibrillation Current Visit: Yes Status: Chronic (2) Acute ischemic stroke Current Visit: No Status: Acute (3) Altered mental status Current Visit: No Status: Acute (4) CHF (congestive heart failure) Current Visit: No Status: Acute (5) Cardiomyopathy Current Visit: No Status: Acute Subjective Date of service: 04/14/18 Principal diagnosis: Severe sepsis with shock; UTI; ITZEL; Hypernatremia Interval history: Patient appears to be comfortable. Noncommunicative. No new cardiac events reported. Objective Vital Signs Temp Pulse Pulse Pulse Resp Resp BP 04/14/18 09:24 100 H 20 04/14/18 09:17 98 H 18 04/14/18 09:16 04/14/18 09:00 85 19 120/66 04/14/18 08:00 98.2 F 105 H 23 105/64 04/14/18 07:00 85 23 105/64 04/14/18 06:00 92 H 22 99/64 04/14/18 05:00 84 24 114/60 04/14/18 04:00 100 H 23 116/70 04/14/18 03:29 98.9 F 04/14/18 03:00 87 22 108/61 04/14/18 02:00 107 H 21 113/57 04/14/18 01:00 95 H 23 118/69 04/14/18 00:00 90 22 109/64 04/13/18 23:30 98.5 F 04/13/18 23:00 77 22 118/68 04/13/18 22:16 68 24 121/69 04/13/18 22:00 70 24 112/64 04/13/18 21:00 75 24 121/69 04/13/18 20:00 85 23 114/72 04/13/18 19:53 97.2 F L 04/13/18 19:52 87 04/13/18 19:00 84 21 111/68 04/13/18 18:00 70 21 114/58 04/13/18 17:50 72 21 122/63 04/13/18 17:40 82 23 122/63 04/13/18 17:30 79 19 122/63 04/13/18 17:20 84 21 122/63 04/13/18 17:10 73 21 122/63 04/13/18 17:00 72 21 123/67 04/13/18 16:50 74 21 123/67 04/13/18 16:40 76 21 123/67 04/13/18 16:30 69 21 123/67 04/13/18 16:20 76 23 123/67 04/13/18 16:10 89 30 H 123/67 04/13/18 16:00 98.2 F 79 88 26 H 123/67 04/13/18 15:50 77 22 99/52 04/13/18 15:40 77 33 H 99/52 04/13/18 15:30 80 22 99/52 04/13/18 15:20 86 22 99/52 04/13/18 15:10 80 25 H 99/52 04/13/18 15:00 72 32 H 99/52 04/13/18 14:50 84 28 H 112/63 04/13/18 14:40 76 22 112/63 04/13/18 14:30 70 22 112/63 04/13/18 14:20 78 27 H 112/63 04/13/18 14:10 91 H 29 H 112/63 04/13/18 14:00 71 42 H 112/63 04/13/18 13:50 72 22 98/46 04/13/18 13:40 83 20 98/46 04/13/18 13:30 89 22 98/46 04/13/18 13:20 74 28 H 98/46 04/13/18 13:10 80 21 95/56 04/13/18 13:00 81 22 95/56 04/13/18 12:50 85 29 H 98/46 04/13/18 12:40 92 H 46 H 98/46 04/13/18 12:30 79 25 H 98/46 04/13/18 12:20 89 23 98/46 04/13/18 12:10 98 H 21 98/46 04/13/18 12:00 98.8 F 78 85 29 H 98/46 04/13/18 11:50 89 43 H 106/56 04/13/18 11:40 79 40 H 106/56 04/13/18 11:30 93 H 30 H 106/56 04/13/18 11:20 96 H 20 106/56 04/13/18 11:10 79 38 H 106/56 04/13/18 11:00 70 21 106/56 04/13/18 10:50 101 H 21 105/63 Pulse Ox 04/14/18 09:24 04/14/18 09:17 04/14/18 09:16 100 04/14/18 09:00 100 04/14/18 08:00 99 04/14/18 07:00 98 04/14/18 06:00 98 04/14/18 05:00 99 04/14/18 04:00 99 04/14/18 03:29 04/14/18 03:00 97 04/14/18 02:00 99 04/14/18 01:00 94 04/14/18 00:00 96 04/13/18 23:30 04/13/18 23:00 96 04/13/18 22:16 100 04/13/18 22:00 99 04/13/18 21:00 99 04/13/18 20:00 99 04/13/18 19:53 04/13/18 19:52 04/13/18 19:00 98 04/13/18 18:00 100 04/13/18 17:50 100 04/13/18 17:40 100 04/13/18 17:30 100 04/13/18 17:20 100 04/13/18 17:10 100 04/13/18 17:00 100 04/13/18 16:50 100 04/13/18 16:40 100 04/13/18 16:30 99 04/13/18 16:20 98 04/13/18 16:10 97 04/13/18 16:00 100 04/13/18 15:50 99 04/13/18 15:40 99 04/13/18 15:30 99 04/13/18 15:20 99 04/13/18 15:10 98 04/13/18 15:00 98 04/13/18 14:50 99 04/13/18 14:40 99 04/13/18 14:30 99 04/13/18 14:20 99 04/13/18 14:10 99 04/13/18 14:00 99 04/13/18 13:50 99 04/13/18 13:40 99 04/13/18 13:30 99 04/13/18 13:20 99 04/13/18 13:10 99 04/13/18 13:00 98 04/13/18 12:50 98 04/13/18 12:40 99 04/13/18 12:30 99 04/13/18 12:20 99 04/13/18 12:10 99 04/13/18 12:00 98 04/13/18 11:50 99 04/13/18 11:40 98 04/13/18 11:30 98 04/13/18 11:20 98 04/13/18 11:10 98 04/13/18 11:00 97 04/13/18 10:50 98 - Physical Examination General: Other (nonverbal) HEENT: Positive: PERRL Neck: Positive: neck supple Cardiac: Positive: irregularly irregular Lungs: Positive: clear to auscultation Neuro: Positive: Grossly Intact, Other (CLYDE) Abdomen: Positive: Soft Skin: Negative: Rash, Wound Musculoskeletal: No Pain Extremities: Present: normal. Absent: edema - Labs and Meds CBC 04/14/18 Range/Units 05:30 WBC 9.5 (4.5-11.0) K/mm3 RBC 2.86 L (3.65-5.03) M/mm3 Hgb 8.5 L (10.1-14.3) gm/dl Hct 26.0 L (30.3-42.9) % Plt Count 192 (140-440) K/mm3 Lymph # 0.9 L (1.2-5.4) K/mm3 [place] # 0.5 (0.0-0.8) K/mm3 Eos # 0.1 (0.0-0.4) K/mm3 Baso # 0.0 (0.0-0.1) K/mm3 Comprehensive Metabolic Panel 04/14/18 Range/Units 05:30 Sodium 140 (137-145) mmol/L Potassium 4.0 (3.6-5.0) mmol/L Chloride 110.0 H (98-107) mmol/L Carbon Dioxide 20 L (22-30) mmol/L BUN 10 (7-17) mg/dL Creatinine 0.4 L (0.7-1.2) mg/dL Glucose 171 H (65-100) mg/dL Calcium 7.3 L (8.4-10.2) mg/dL - Imaging and Cardiology EKG: report reviewed, image reviewed Echo: report reviewed (ECHO 04/09/18: EF 50-55%, mild LVH. 07/2016 showed EF 50- 55%, mild LVH, abnormal diastolic function, LA mild to mod dilated, mild MR, mod TR, RVSP 41mmHg. ) - Allied health notes Allied health notes reviewed: nursing
[2018-04-14] MEDS ORDERED: PROVENTIL IH PRN (12:00)
--- NOTE | 2018-04-14 15:04 | Progress Note ---
Assessment and Plan -Severe sepsis with septic shock -UTI -Acute renal failure, vasomotor nephropathy, ischemic ATN -Lactic acidosis -Hyperglycemia -Hypernatremia -Acute on chronic encephalopathy( toxic, metabolic) -h/o CVA -Oropharyngeal dysphagia with PEG -Anemia s/p EGD with acute bleeding -De-escalate antibiotic therapy based on PETR and cultures reports -VTE prophyalxis -Aspiration precautions -Adjust all medications for CrCl/GFR. Avoid nephrotoxic agents -Accuchecks with glycemic control. Target glucose 140-180 mg/dL -Mobility program for pressure ulcer prevention -Aspiration precautions Updated son at the bedside, answered all his questions Transfer to telemetry Discharge planning Subjective Date of service: 04/14/18 Principal diagnosis: Severe sepsis with shock; UTI; ITZEL; Hypernatremia Interval history: Seen and examined. Son at the bedside. Vitals, albs, medications, chart reviewed. Off vasopresssor support s/p PRCB transfusion. No acute overnight events reported. No fevers, hemodynamoics remain with normal limits s/p EGD Son visiting at the bedside Objective Vital Signs - 12hr 04/14/18 04/14/18 04/14/18 03:29 04:00 05:00 Temperature 98.9 F Pulse Rate 100 H 84 Pulse Rate [ Bilateral Throughout] Respiratory 23 24 Rate Respiratory Rate [Bilateral Throughout] Blood Pressure 116/70 114/60 O2 Sat by Pulse 99 99 Oximetry 04/14/18 04/14/18 04/14/18 06:00 07:00 08:00 Temperature 98.2 F Pulse Rate 92 H 85 105 H Pulse Rate [ Bilateral Throughout] Respiratory 22 23 23 Rate Respiratory Rate [Bilateral Throughout] Blood Pressure 99/64 105/64 105/64 O2 Sat by Pulse 98 98 99 Oximetry 04/14/18 04/14/18 04/14/18 09:00 09:16 09:17 Temperature Pulse Rate 85 Pulse Rate [ 98 H Bilateral Throughout] Respiratory 19 Rate Respiratory 18 Rate [Bilateral Throughout] Blood Pressure 120/66 O2 Sat by Pulse 100 100 Oximetry 04/14/18 04/14/18 04/14/18 09:24 10:00 11:00 Temperature Pulse Rate 89 125 H Pulse Rate [ 100 H Bilateral Throughout] Respiratory 22 22 Rate Respiratory 20 Rate [Bilateral Throughout] Blood Pressure 124/69 124/69 O2 Sat by Pulse 99 99 Oximetry Constitutional: lethargic, appears uncomfortable, other (elderly looking AF, normocephalic and atraumatic without overt respiratory distress) Eyes: non-icteric ENT: oropharynx dry, other Neck: supple, no lymphadenopathy, no JVD Effort: mildly labored Ascultation: Bilateral: clear, diminished breath sounds Percussion: Bilateral: not dull Cardiovascular: regular rate and rhythm, other (Tachycardia, S1,S2, no murmurs, gallops or rubs) Gastrointestinal: normoactive bowel sounds, soft, non-tender, non-distended, other (no guarding, PEG in place, Abbott cahter with tea colored urine in place) Integumentary: other (loss of skin tugor) Extremities: no cyanosis, no edema, pink and warm, pulses normal, no ischemia or petechiae Neurologic: pupils equal and round, unable to assess (otherwise) Psychiatric: other (unable to assess) CBC and BMP: 04/15/18 06:00 04/15/18 06:00 ABG, PT/INR, D-dimer: ABG POC ABG pH 7.466 (7.35-7.45) H 04/09/18 12:42 POC ABG pCO2 24.6 (35-45) L 04/09/18 12:42 POC ABG pO2 120 (80-105) H 04/09/18 12:42 POC ABG HCO3 17.7 04/09/18 12:42 POC ABG Total CO2 18 04/09/18 12:42 POC ABG O2 Sat 99 04/09/18 12:42 Abnormal lab findings: Abnormal Labs 04/08/18 04/08/18 04/08/18 02:50 02:50 02:50 WBC 16.5 H RBC 3.37 L Hgb 9.7 L Hct RDW 17.6 H Lymph % (Auto) 11.0 L Lymph # [place] # 1.0 H Seg Neutrophils % 82.7 H Seg Neuts % (Manual) Lymphocytes % (Manual) Seg Neutrophils # 13.7 H Seg Neutrophils # Man Lymphocytes # (Manual) POC ABG pH POC ABG pCO2 POC ABG pO2 Sodium 152 H Potassium Chloride 108.9 H Carbon Dioxide BUN 102 H Creatinine 1.7 H Glucose 291 H POC Glucose Lactic Acid 2.70 H* Calcium 7.8 L Ionized Calcium Phosphorus Magnesium AST 74 H ALT 96 H Total Creatine Kinase CK-MB (CK-2) Troponin T 0.068 H Total Protein 6.2 L Albumin 2.7 L Triglycerides 247 H HDL Cholesterol 36 L PTH Intact Urine WBC (Auto) Urine Creatinine Urine Total Protein Crossmatch 04/08/18 04/08/18 04/08/18 02:50 02:57 03:44 WBC RBC Hgb Hct RDW Lymph % (Auto) Lymph # [place] # Seg Neutrophils % Seg Neuts % (Manual) Lymphocytes % (Manual) Seg Neutrophils # Seg Neutrophils # Man Lymphocytes # (Manual) POC ABG pH POC ABG pCO2 POC ABG pO2 Sodium Potassium Chloride Carbon Dioxide BUN Creatinine Glucose POC Glucose 289 H Lactic Acid Calcium Ionized Calcium Phosphorus Magnesium AST ALT Total Creatine Kinase CK-MB (CK-2) Troponin T Total Protein Albumin Triglycerides HDL Cholesterol PTH Intact Urine WBC (Auto) > 182.0 H Urine Creatinine Urine Total Protein Crossmatch See Detail 04/08/18 04/08/18 04/08/18 04:30 05:59 05:59 WBC RBC Hgb Hct RDW Lymph % (Auto) Lymph # [place] # Seg Neutrophils % Seg Neuts % (Manual) Lymphocytes % (Manual) Seg Neutrophils # Seg Neutrophils # Man Lymphocytes # (Manual) POC ABG pH POC ABG pCO2 POC ABG pO2 Sodium Potassium Chloride Carbon Dioxide BUN Creatinine Glucose POC Glucose Lactic Acid 3.50 H* 2.70 H* Calcium Ionized Calcium Phosphorus Magnesium AST ALT Total Creatine Kinase 1203 H CK-MB (CK-2) 4.7 H Troponin T 0.042 H D Total Protein Albumin Triglycerides HDL Cholesterol PTH Intact Urine WBC (Auto) Urine Creatinine Urine Total Protein Crossmatch 04/08/18 04/08/18 04/08/18 06:04 07:06 10:53 WBC RBC Hgb Hct RDW Lymph % (Auto) Lymph # [place] # Seg Neutrophils % Seg Neuts % (Manual) Lymphocytes % (Manual) Seg Neutrophils # Seg Neutrophils # Man Lymphocytes # (Manual) POC ABG pH POC ABG pCO2 POC ABG pO2 Sodium Potassium Chloride Carbon Dioxide BUN Creatinine Glucose POC Glucose 323 H Lactic Acid 2.40 H* 2.30 H* Calcium Ionized Calcium Phosphorus Magnesium AST ALT Total Creatine Kinase CK-MB (CK-2) Troponin T Total Protein Albumin Triglycerides HDL Cholesterol PTH Intact Urine WBC (Auto) Urine Creatinine Urine Total Protein Crossmatch 01/04/08/18 04/08/18 12:07 12:46 13:17 WBC RBC Hgb Hct RDW Lymph % (Auto) Lymph # [place] # Seg Neutrophils % Seg Neuts % (Manual) Lymphocytes % (Manual) Seg Neutrophils # Seg Neutrophils # Man Lymphocytes # (Manual) POC ABG pH POC ABG pCO2 POC ABG pO2 Sodium Potassium Chloride Carbon Dioxide BUN Creatinine Glucose POC Glucose 318 H 335 H Lactic Acid Calcium Ionized Calcium Phosphorus Magnesium AST ALT Total Creatine Kinase 1194 H CK-MB (CK-2) 5.1 H Troponin T Total Protein Albumin Triglycerides HDL Cholesterol PTH Intact Urine WBC (Auto) Urine Creatinine Urine Total Protein Crossmatch 04/08/18 04/08/18 04/08/18 13:19 14:32 15:18 WBC RBC Hgb Hct RDW Lymph % (Auto) Lymph # [place] # Seg Neutrophils % Seg Neuts % (Manual) Lymphocytes % (Manual) Seg Neutrophils # Seg Neutrophils # Man Lymphocytes # (Manual) POC ABG pH POC ABG pCO2 POC ABG pO2 Sodium Potassium Chloride Carbon Dioxide BUN Creatinine Glucose POC Glucose 291 H Lactic Acid 2.60 H* Calcium Ionized Calcium Phosphorus Magnesium AST ALT Total Creatine Kinase CK-MB (CK-2) Troponin T Total Protein Albumin Triglycerides HDL Cholesterol PTH Intact Urine WBC (Auto) Urine Creatinine 24.0 H Urine Total Protein 57 H Crossmatch 04/08/18 04/08/18 04/08/18 15:40 16:54 17:52 WBC RBC Hgb Hct RDW Lymph % (Auto) Lymph # [place] # Seg Neutrophils % Seg Neuts % (Manual) Lymphocytes % (Manual) Seg Neutrophils # Seg Neutrophils # Man Lymphocytes # (Manual) POC ABG pH POC ABG pCO2 POC ABG pO2 Sodium Potassium Chloride Carbon Dioxide BUN Creatinine Glucose POC Glucose 280 H 226 H Lactic Acid 3.10 H* Calcium Ionized Calcium Phosphorus Magnesium AST ALT Total Creatine Kinase CK-MB (CK-2) Troponin T Total Protein Albumin Triglycerides HDL Cholesterol PTH Intact Urine WBC (Auto) Urine Creatinine Urine Total Protein Crossmatch 04/08/18 04/08/18 04/08/18 18:35 19:18 19:57 WBC RBC Hgb Hct RDW Lymph % (Auto) Lymph # [place] # Seg Neutrophils % Seg Neuts % (Manual) Lymphocytes % (Manual) Seg Neutrophils # Seg Neutrophils # Man Lymphocytes # (Manual) POC ABG pH POC ABG pCO2 POC ABG pO2 Sodium Potassium Chloride Carbon Dioxide BUN Creatinine Glucose POC Glucose 247 H Lactic Acid 2.60 H* 2.60 H* Calcium Ionized Calcium Phosphorus Magnesium AST ALT Total Creatine Kinase CK-MB (CK-2) Troponin T Total Protein Albumin Triglycerides HDL Cholesterol PTH Intact Urine WBC (Auto) Urine Creatinine Urine Total Protein Crossmatch 04/08/18 04/08/18 04/09/18 21:41 22:56 00:27 WBC 14.5 H RBC 2.78 L Hgb 8.1 L Hct 26.4 L RDW 16.7 H Lymph % (Auto) Lymph # [place] # Seg Neutrophils % Seg Neuts % (Manual) 89.0 H Lymphocytes % (Manual) 5.0 L Seg Neutrophils # Seg Neutrophils # Man 12.9 H Lymphocytes # (Manual) 0.7 L POC ABG pH POC ABG pCO2 POC ABG pO2 Sodium Potassium Chloride Carbon Dioxide BUN Creatinine Glucose POC Glucose 164 H Lactic Acid 3.80 H* Calcium Ionized Calcium Phosphorus Magnesium AST ALT Total Creatine Kinase CK-MB (CK-2) Troponin T Total Protein Albumin Triglycerides HDL Cholesterol PTH Intact Urine WBC (Auto) Urine Creatinine Urine Total Protein Crossmatch 04/09/18 04/09/18 04/09/18 00:27 02:54 05:51 WBC RBC Hgb Hct RDW Lymph % (Auto) Lymph # [place] # Seg Neutrophils % Seg Neuts % (Manual) Lymphocytes % (Manual) Seg Neutrophils # Seg Neutrophils # Man Lymphocytes # (Manual) POC ABG pH POC ABG pCO2 POC ABG pO2 Sodium 149 H Potassium Chloride 118.4 H Carbon Dioxide BUN 38 H Creatinine 0.6 L D Glucose 153 H POC Glucose 151 H 203 H Lactic Acid Calcium 6.6 L D Ionized Calcium Phosphorus Magnesium AST ALT Total Creatine Kinase CK-MB (CK-2) Troponin T Total Protein Albumin Triglycerides HDL Cholesterol PTH Intact Urine WBC (Auto) Urine Creatinine Urine Total Protein Crossmatch 04/09/18 04/09/18 04/09/18 06:00 06:00 10:18 WBC 13.2 H RBC 2.84 L Hgb 8.2 L Hct 27.1 L RDW 17.2 H Lymph % (Auto) 8.5 L Lymph # 1.1 L [place] # Seg Neutrophils % 87.2 H Seg Neuts % (Manual) Lymphocytes % (Manual) Seg Neutrophils # 11.5 H Seg Neutrophils # Man Lymphocytes # (Manual) POC ABG pH POC ABG pCO2 POC ABG pO2 Sodium 152 H Potassium Chloride 119.6 H Carbon Dioxide 21 L BUN 33 H Creatinine Glucose 187 H POC Glucose 217 H Lactic Acid Calcium 6.8 L Ionized Calcium Phosphorus Magnesium AST ALT Total Creatine Kinase CK-MB (CK-2) Troponin T Total Protein Albumin Triglycerides HDL Cholesterol PTH Intact Urine WBC (Auto) Urine Creatinine Urine Total Protein Crossmatch 04/09/18 04/09/18 04/09/18 12:42 16:50 17:40 WBC RBC Hgb Hct RDW Lymph % (Auto) Lymph # [place] # Seg Neutrophils % Seg Neuts % (Manual) Lymphocytes % (Manual) Seg Neutrophils # Seg Neutrophils # Man Lymphocytes # (Manual) POC ABG pH 7.466 H POC ABG pCO2 24.6 L POC ABG pO2 120 H Sodium Potassium Chloride Carbon Dioxide BUN Creatinine Glucose POC Glucose 244 H Lactic Acid Calcium Ionized Calcium Phosphorus Magnesium 2.60 H AST ALT Total Creatine Kinase CK-MB (CK-2) Troponin T Total Protein Albumin Triglycerides HDL Cholesterol PTH Intact Urine WBC (Auto) Urine Creatinine Urine Total Protein Crossmatch 04/09/18 04/10/18 04/10/18 23:55 00:33 05:00 WBC RBC 2.47 L Hgb 7.3 L Hct 23.6 L RDW 16.9 H Lymph % (Auto) Lymph # 1.1 L [place] # Seg Neutrophils % 82.0 H Seg Neuts % (Manual) Lymphocytes % (Manual) Seg Neutrophils # Seg Neutrophils # Man Lymphocytes # (Manual) POC ABG pH POC ABG pCO2 POC ABG pO2 Sodium Potassium Chloride Carbon Dioxide BUN Creatinine Glucose POC Glucose 233 H 176 H Lactic Acid Calcium Ionized Calcium Phosphorus Magnesium AST ALT Total Creatine Kinase CK-MB (CK-2) Troponin T Total Protein Albumin Triglycerides HDL Cholesterol PTH Intact Urine WBC (Auto) Urine Creatinine Urine Total Protein Crossmatch 04/10/18 04/10/18 04/10/18 05:00 05:19 11:42 WBC RBC Hgb Hct RDW Lymph % (Auto) Lymph # [place] # Seg Neutrophils % Seg Neuts % (Manual) Lymphocytes % (Manual) Seg Neutrophils # Seg Neutrophils # Man Lymphocytes # (Manual) POC ABG pH POC ABG pCO2 POC ABG pO2 Sodium 150 H Potassium Chloride 120.0 H Carbon Dioxide 20 L BUN 21 H Creatinine 0.6 L Glucose 189 H POC Glucose 197 H 197 H Lactic Acid Calcium 6.5 L Ionized Calcium Phosphorus 2.10 L D Magnesium AST ALT Total Creatine Kinase CK-MB (CK-2) Troponin T Total Protein Albumin Triglycerides HDL Cholesterol PTH Intact Urine WBC (Auto) Urine Creatinine Urine Total Protein Crossmatch 04/10/18 04/10/18 04/11/18 17:32 20:38 00:24 WBC RBC Hgb Hct RDW Lymph % (Auto) Lymph # [place] # Seg Neutrophils % Seg Neuts % (Manual) Lymphocytes % (Manual) Seg Neutrophils # Seg Neutrophils # Man Lymphocytes # (Manual) POC ABG pH POC ABG pCO2 POC ABG pO2 Sodium Potassium Chloride Carbon Dioxide BUN Creatinine Glucose POC Glucose 114 H 107 H 110 H Lactic Acid Calcium Ionized Calcium Phosphorus Magnesium AST ALT Total Creatine Kinase CK-MB (CK-2) Troponin T Total Protein Albumin Triglycerides HDL Cholesterol PTH Intact Urine WBC (Auto) Urine Creatinine Urine Total Protein Crossmatch 04/11/18 04/11/18 04/11/18 04:01 05:19 05:19 WBC RBC 2.36 L Hgb 6.9 L Hct 22.5 L RDW 16.9 H Lymph % (Auto) 11.6 L Lymph # 1.0 L [place] # Seg Neutrophils % 84.4 H Seg Neuts % (Manual) Lymphocytes % (Manual) Seg Neutrophils # Seg Neutrophils # Man Lymphocytes # (Manual) POC ABG pH POC ABG pCO2 POC ABG pO2 Sodium Potassium Chloride 111.3 H Carbon Dioxide 15 L BUN Creatinine 0.6 L Glucose 137 H POC Glucose 137 H Lactic Acid Calcium 6.8 L Ionized Calcium Phosphorus 2.40 L Magnesium AST ALT Total Creatine Kinase CK-MB (CK-2) Troponin T Total Protein Albumin Triglycerides HDL Cholesterol PTH Intact Urine WBC (Auto) Urine Creatinine Urine Total Protein Crossmatch 04/11/18 04/11/18 04/11/18 05:19 05:19 05:19 WBC RBC Hgb Hct RDW Lymph % (Auto) Lymph # [place] # Seg Neutrophils % Seg Neuts % (Manual) Lymphocytes % (Manual) Seg Neutrophils # Seg Neutrophils # Man Lymphocytes # (Manual) POC ABG pH POC ABG pCO2 POC ABG pO2 Sodium Potassium Chloride Carbon Dioxide BUN Creatinine Glucose POC Glucose Lactic Acid Calcium Ionized Calcium 4.5 L Phosphorus Magnesium AST ALT Total Creatine Kinase CK-MB (CK-2) Troponin T Total Protein Albumin Triglycerides HDL Cholesterol PTH Intact 169.6 H Urine WBC (Auto) Urine Creatinine Urine Total Protein Crossmatch See Detail 04/11/18 04/11/18 04/11/18 08:21 12:41 16:05 WBC RBC Hgb Hct RDW Lymph % (Auto) Lymph # [place] # Seg Neutrophils % Seg Neuts % (Manual) Lymphocytes % (Manual) Seg Neutrophils # Seg Neutrophils # Man Lymphocytes # (Manual) POC ABG pH POC ABG pCO2 POC ABG pO2 Sodium Potassium Chloride Carbon Dioxide BUN Creatinine Glucose POC Glucose 159 H 180 H 165 H Lactic Acid Calcium Ionized Calcium Phosphorus Magnesium AST ALT Total Creatine Kinase CK-MB (CK-2) Troponin T Total Protein Albumin Triglycerides HDL Cholesterol PTH Intact Urine WBC (Auto) Urine Creatinine Urine Total Protein Crossmatch 04/11/18 04/12/18 04/12/18 21:11 00:15 03:51 WBC RBC Hgb Hct RDW Lymph % (Auto) Lymph # [place] # Seg Neutrophils % Seg Neuts % (Manual) Lymphocytes % (Manual) Seg Neutrophils # Seg Neutrophils # Man Lymphocytes # (Manual) POC ABG pH POC ABG pCO2 POC ABG pO2 Sodium Potassium Chloride Carbon Dioxide BUN Creatinine Glucose POC Glucose 133 H 106 H 134 H Lactic Acid Calcium Ionized Calcium Phosphorus Magnesium AST ALT Total Creatine Kinase CK-MB (CK-2) Troponin T Total Protein Albumin Triglycerides HDL Cholesterol PTH Intact Urine WBC (Auto) Urine Creatinine Urine Total Protein Crossmatch 04/12/18 04/12/18 04/12/18 06:39 09:03 09:03 WBC RBC 3.02 L Hgb 8.8 L Hct 27.2 L RDW 16.6 H Lymph % (Auto) 11.3 L Lymph # 1.1 L [place] # Seg Neutrophils % 80.8 H Seg Neuts % (Manual) Lymphocytes % (Manual) Seg Neutrophils # 7.9 H Seg Neutrophils # Man Lymphocytes # (Manual) POC ABG pH POC ABG pCO2 POC ABG pO2 Sodium Potassium 3.2 L D Chloride 115.3 H Carbon Dioxide 14 L BUN Creatinine 0.6 L Glucose 118 H POC Glucose 121 H Lactic Acid Calcium 6.9 L Ionized Calcium Phosphorus 1.90 L D Magnesium AST ALT Total Creatine Kinase CK-MB (CK-2) Troponin T Total Protein Albumin Triglycerides HDL Cholesterol PTH Intact Urine WBC (Auto) Urine Creatinine Urine Total Protein Crossmatch 04/12/18 04/12/18 04/12/18 15:09 18:11 23:35 WBC RBC Hgb Hct RDW Lymph % (Auto) Lymph # [place] # Seg Neutrophils % Seg Neuts % (Manual) Lymphocytes % (Manual) Seg Neutrophils # Seg Neutrophils # Man Lymphocytes # (Manual) POC ABG pH POC ABG pCO2 POC ABG pO2 Sodium Potassium Chloride Carbon Dioxide BUN Creatinine Glucose POC Glucose 122 H 150 H 124 H Lactic Acid Calcium Ionized Calcium Phosphorus Magnesium AST ALT Total Creatine Kinase CK-MB (CK-2) Troponin T Total Protein Albumin Triglycerides HDL Cholesterol PTH Intact Urine WBC (Auto) Urine Creatinine Urine Total Protein Crossmatch 04/13/18 04/13/18 04/13/18 04:43 04:50 04:50 WBC RBC 3.05 L Hgb 9.0 L Hct 27.6 L RDW 17.3 H Lymph % (Auto) 9.9 L Lymph # 1.0 L [place] # Seg Neutrophils % 83.9 H Seg Neuts % (Manual) Lymphocytes % (Manual) Seg Neutrophils # 8.5 H Seg Neutrophils # Man Lymphocytes # (Manual) POC ABG pH POC ABG pCO2 POC ABG pO2 Sodium Potassium Chloride 111.1 H Carbon Dioxide 18 L BUN Creatinine 0.5 L Glucose 142 H POC Glucose 150 H Lactic Acid Calcium 7.1 L Ionized Calcium Phosphorus Magnesium AST ALT Total Creatine Kinase CK-MB (CK-2) Troponin T Total Protein Albumin Triglycerides HDL Cholesterol PTH Intact Urine WBC (Auto) Urine Creatinine Urine Total Protein Crossmatch 04/13/18 04/13/18 04/13/18 10:15 18:18 23:39 WBC RBC Hgb Hct RDW Lymph % (Auto) Lymph # [place] # Seg Neutrophils % Seg Neuts % (Manual) Lymphocytes % (Manual) Seg Neutrophils # Seg Neutrophils # Man Lymphocytes # (Manual) POC ABG pH POC ABG pCO2 POC ABG pO2 Sodium Potassium Chloride Carbon Dioxide BUN Creatinine Glucose POC Glucose 179 H 157 H 211 H Lactic Acid Calcium Ionized Calcium Phosphorus Magnesium AST ALT Total Creatine Kinase CK-MB (CK-2) Troponin T Total Protein Albumin Triglycerides HDL Cholesterol PTH Intact Urine WBC (Auto) Urine Creatinine Urine Total Protein Crossmatch 04/14/18 04/14/18 04/14/18 05:19 05:30 05:30 WBC RBC 2.86 L Hgb 8.5 L Hct 26.0 L RDW 16.9 H Lymph % (Auto) 9.1 L Lymph # 0.9 L [place] # Seg Neutrophils % 84.3 H Seg Neuts % (Manual) Lymphocytes % (Manual) Seg Neutrophils # 8.0 H Seg Neutrophils # Man Lymphocytes # (Manual) POC ABG pH POC ABG pCO2 POC ABG pO2 Sodium Potassium Chloride 110.0 H Carbon Dioxide 20 L BUN Creatinine 0.4 L Glucose 171 H POC Glucose 175 H Lactic Acid Calcium 7.3 L Ionized Calcium Phosphorus 1.70 L D Magnesium AST ALT Total Creatine Kinase CK-MB (CK-2) Troponin T Total Protein Albumin Triglycerides HDL Cholesterol PTH Intact Urine WBC (Auto) Urine Creatinine Urine Total Protein Crossmatch 04/14/18 13:01 WBC RBC Hgb Hct RDW Lymph % (Auto) Lymph # [place] # Seg Neutrophils % Seg Neuts % (Manual) Lymphocytes % (Manual) Seg Neutrophils # Seg Neutrophils # Man Lymphocytes # (Manual) POC ABG pH POC ABG pCO2 POC ABG pO2 Sodium Potassium Chloride Carbon Dioxide BUN Creatinine Glucose POC Glucose 169 H Lactic Acid Calcium Ionized Calcium Phosphorus Magnesium AST ALT Total Creatine Kinase CK-MB (CK-2) Troponin T Total Protein Albumin Triglycerides HDL Cholesterol PTH Intact Urine WBC (Auto) Urine Creatinine Urine Total Protein Crossmatch Allied health notes reviewed: nursing
[2018-04-14] MEDS: HEPARIN SUB-Q SCH ×2 (16:00→22:16)
[2018-04-14] MEDS: HumaLOG SUB-Q SCH (19:13)
--- NOTE | 2018-04-14 19:30 | Ultrasound Report ---
FINAL REPORT EXAM: US RENAL BILAT HISTORY: severe UTI/pyuria / septic shock TECHNIQUE: Ultrasound of the kidneys PRIORS: CT a/P 07/24/2016 FINDINGS: Examination of the kidneys demonstrates both to be normal in size and have normal cortical echogenici ty. The right and left kidneys measure 13.2 cm and 10.4 cm in craniocaudal length, respectively. How ever, the right kidney shows severe cortical thinning. This is likely due to longstanding marked hydr onephrosis of the right kidney, unchanged from the previous study. No evidence for calculi or solid mass is seen in either kidney. No left-sided hydronephrosis is seen. The urinary bladder shows no intraluminal abnormality or wall thickening. Incidental left pleural effusion is noted. Small amount of free fluid around the liver is present. IMPRESSION: 1. Chronic longstanding marked hydronephrosis of the right kidney. There is significant cortical thin rené noted as also seen on prior CT. 2. Incidental small left pleural effusion and a small amount of free fluid around the liver
[2018-04-14 20:41] LABS: Albumin 1.8 g/dL (3.8-4.8)
[2018-04-14] MEDS: PRAVACHOL PO SCH (22:09)
[2018-04-15] MEDS: HumaLOG SUB-Q SCH ×4 (00:20→18:26)
[2018-04-15] MEDS: MAXIPIME/NS 1 GM/100 ML 1 GM/100 ML BAG IV SCH ×3 (05:48→22:01)
[2018-04-15] MEDS: SYNTHROID PO SCH (05:48)
[2018-04-15 06:21] LABS: Basophils % (Auto) 0.1 % (0.0-1.8); Eosinophils # (Auto) 0.1 K/mm3 (0.0-0.4); Eosinophils % (Auto) 1.3 % (0.0-4.3); Hematocrit 26.5 % (30.3-42.9); Hemoglobin 8.6 gm/dl (10.1-14.3); Lymphocytes % (Auto) 9.6 % (13.4-35.0); Mean Corpuscular HGB Conc 33 % (30-34); Mean Corpuscular Volume 91 fl (79-97); Monocytes # (Auto) 0.7 K/mm3 (0.0-0.8); Monocytes % (Auto) 6.4 % (0.0-7.3); Platelet Count 200 K/mm3 (140-440); Red Blood Count 2.92 M/mm3 (3.65-5.03)
[2018-04-15 07:04] LABS: BUN/Creatinine Ratio 28; Blood Urea Nitrogen 11 mg/dL (7-17); Calcium 7.5 mg/dL (8.4-10.2); Hemolysis Index 2
--- NOTE | 2018-04-15 08:21 | Progress Note ---
Assessment and Plan Cultures: 04/08/2018 blood cultures: 1 out of 4 bottles positive for CoNS 04/08/2018 urine culture: 10-100K mixed bacteria 04/08/2018 GAS neg 04/10/2018 Stool culture neg, [place] ag neg, Cryptosporidium ag neg A/P: 87-year-old female with prior CVA, right-sided hemiplegia, aphasia, CHF, diabetes mellitus, vascular dementia who is a [place] [facility] resident, admitted with: #1 Septic shock: shock, fever, leukocytosis resolved; Source is likely urine. UA with significant pyuria. Chest x-ray not concerning for an obvious pneumonia. Renal ultrasound reveals chronic longstanding marked hydronephrosis of the right kidney, no stones or pylonephritis.Renal nuclear scan pending- Urology following #2 Urinary tract infection: urine culture 10-100K mixed bacteria, still thick sediment and significant pyuria #3 Acute on chronic encephalopathy: Likely metabolic and septic in etiology. #4 Acute kidney injury: resolved. #5 CoNS bacteremia: One out of 4 bottles positive for CoNS, likely contaminant. No further work up needed. Recs: continue IV Cefepime 1 gm q8 hrs f/u on renal nuclear scan Joelle Lyon NP [facility] M: [phone] O:[phone] Subjective Date of service: 04/15/18 Principal diagnosis: Severe sepsis with shock; UTI; ITZEL; Hypernatremia Interval history: Patient seen and examined. Nonverbal at baseline. No acute distress per bedside nurse. No family at bedside. Objective - Exam Narrative Exam: Constitutional: Somnolent in NAD on NC O2, non verbal Head, Ears, Nose, oral: Normocephalic, atraumatic. External ears, nose normal, OP clear Eyes: Conjunctivae/corneas clear. No icterus. No ptosis. Neck: Supple, no meningeal signs Cardiovascular: RRR Respiratory: Good air entry, clear to auscultation bilaterally GI: Soft, non-tender; bowel sounds normal. No peritoneal signs, +rectal tube, +G-tube thick sediment and significant pyuria continuing Musculoskeletal: No pedal edema, no cyanosis. Skin: No rash or abscess Hem/Lymphatic: No palpable cervical or supraclavicular nodes. No lymphangitis Psych: somnolent Neurological: somnolent, non verbal. - Constitutional Vitals: Vital Signs Temp Pulse Resp BP Pulse Ox 99.3 F 93 H 20 125/58 93 04/15/18 02:48 04/15/18 04:00 04/15/18 02:48 04/15/18 02:48 04/15/18 02:48 Temperature -Last 24 Hours Temperature 99.3 F Temperature 99.8 F Temperature 99.8 F Temperature 97.6 F Temperature 97.4 F - Labs CBC & Chem 7: 04/15/18 06:00 04/15/18 06:00 Labs: Abnormal lab results 04/10/18 04/14/18 04/14/18 Range/Units 09:06 13:01 19:00 RBC (3.65-5.03) M/mm3 Hgb (10.1-14.3) gm/dl Hct (30.3-42.9) % RDW (13.2-15.2) % Lymph % (Auto) (13.4-35.0) % Lymph # (1.2-5.4) K/mm3 Seg Neutrophils % (40.0-70.0) % Seg Neutrophils # (1.8-7.7) K/mm3 Potassium (3.6-5.0) mmol/L Chloride (98-107) mmol/L Creatinine (0.7-1.2) mg/dL Glucose (65-100) mg/dL POC Glucose 169 H 176 H (70-105) Calcium (8.4-10.2) mg/dL Serum Total Protein 4.8 L (6.1-8.1) g/dL Albumin 1.8 L (3.8-4.8) g/dL Hslaq-9-Xfqocuboc 0.4 H (0.2-0.3) g/dL PEP Interpretation see below H 04/15/18 04/15/18 04/15/18 Range/Units 00:53 06:00 06:00 RBC 2.92 L (3.65-5.03) M/mm3 Hgb 8.6 L (10.1-14.3) gm/dl Hct 26.5 L (30.3-42.9) % RDW 17.0 H (13.2-15.2) % Lymph % (Auto) 9.6 L (13.4-35.0) % Lymph # 1.0 L (1.2-5.4) K/mm3 Seg Neutrophils % 82.6 H (40.0-70.0) % Seg Neutrophils # 8.4 H (1.8-7.7) K/mm3 Potassium 3.5 L (3.6-5.0) mmol/L Chloride 109.1 H (98-107) mmol/L Creatinine 0.4 L (0.7-1.2) mg/dL Glucose 160 H (65-100) mg/dL POC Glucose 144 H (70-105) Calcium 7.5 L (8.4-10.2) mg/dL Serum Total Protein (6.1-8.1) g/dL Albumin (3.8-4.8) g/dL Mocjd-1-Awtcegcqu (0.2-0.3) g/dL PEP Interpretation 04/15/18 Range/Units 06:42 RBC (3.65-5.03) M/mm3 Hgb (10.1-14.3) gm/dl Hct (30.3-42.9) % RDW (13.2-15.2) % Lymph % (Auto) (13.4-35.0) % Lymph # (1.2-5.4) K/mm3 Seg Neutrophils % (40.0-70.0) % Seg Neutrophils # (1.8-7.7) K/mm3 Potassium (3.6-5.0) mmol/L Chloride (98-107) mmol/L Creatinine (0.7-1.2) mg/dL Glucose (65-100) mg/dL POC Glucose 165 H (70-105) Calcium (8.4-10.2) mg/dL Serum Total Protein (6.1-8.1) g/dL Albumin (3.8-4.8) g/dL Upmjn-6-Bhvlkrxma (0.2-0.3) g/dL PEP Interpretation
--- NOTE | 2018-04-15 08:44 | Discharge Summary ---
Providers - Providers Date of Admission: 04/08/18 04:44 Attending physician: MIGUELINA SANCHEZ MD 04/08/18 04:50 Consult to Physician [CONS] Routine Comment: Consulting Provider: DIANA LUNA Physician Instructions: Reason For Exam: ICU ADMISSION FOR SEPSIS ON LEVOPHED DRIP 04/08/18 05:35 Consult to Physician [CONS] Routine Comment: Consulting Provider: HUMBERTO SIU Physician Instructions: Reason For Exam: RENAL INSUFFICIENCY 04/09/18 12:55 Consult to Physician [CONS] Routine Comment: Consulting Provider: TOSIN MARIN Physician Instructions: Reason For Exam: septic shock 04/09/18 12:58 Consult to Physician [CONS] Routine Comment: Consulting Provider: FLACA SEYMOUR Physician Instructions: Reason For Exam: afib 04/10/18 09:52 Consult to Dietitian/Nutrition [CONS] Routine Physician Instructions: Reason For Exam: TUBE FEEDING Reason for Consult: Write/Manage Tube Feeding 04/10/18 14:10 Consult to Interventional Radiology [CONS] Routine Consulting Provider: MELISSA AVILA Reason For Exam: need central vascular access Place consult to:: Dr. Melissa Valdovinos Notified:: yes Phone number called:: in person Was contact made?: Yes If yes, spoke with:: Dr. Melissa Valdovinos Time called:: 18:00 04/10/18 15:47 Consult to PICC Line RN [CONS] Stat Reason For Exam: on pressors Type Line:: PICC 04/10/18 16:41 Consult to Physician [CONS] Routine Comment: Consulting Provider: MELISSA AVILA Physician Instructions: Reason For Exam: needs central line for pressors 04/10/18 18:24 Consult to Physician [CONS] Routine Comment: Consulting Provider: MAGED TAPIA Physician Instructions: Reason For Exam: Melena 04/12/18 18:02 Consult to Dietitian/Nutrition [CONS] Routine Physician Instructions: Assess nutrtn needs, initiate, modify, manage TF Reason For Exam: Reason for Consult: Write/Manage Tube Feeding Reason for Consult: Write/Manage Tube Feeding Primary care physician: [employer] Hospitalization Reason for admission: septic shock Condition: Serious Hospital course: 87-year-old woman who presents from [facility] with low blood pressure and fever. 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, aphasia , non verbal, sp PEG, bed bound, does not respond or move at baseline, only opens eyes, history of CHF, diabetes, vascular dementia, anemia, hypertension, atrial fibrillation. On admission the patient was started on management of septic shock with fluids. Did have elevated troponin but no significant workup was recommended due to her clinical condition. Infectious diseases was consulted and cultures were reviewed and as noted below. She was removed on anticoagulation and started only on aspirin and risk discussed with family. Urine culture showed possible contamination. Patient was treated with antibiotics with cefepime and currently remains stable for discharge blood pressure is significantly improved. Ultrasound of the kidneys showed marked chronic right hydronephrosis. Urology consulted and on review of renal function it showed the right kidney has less than 5% functionality. No intervention was done. Considering overall clinical condition, i had a discussion with family to consider hospice But family will decide Microbiology Stool culture is negative, stool leukocytes negative, stool cryptosporidium negative, Giardia negative Blood cultures negative 4 days Throat culture positive for group A strep Urine culture negative Discharge diagnosis Septic shock secondary to UTI Hypernatremia Dehydration NSTEMI type II Complex acute cystitis with marked chronic right-sided hydronephrosis Severe sepsis Acute on chronic metabolic encephalopathy secondary to prior CVA ITZEL -vasomotor nephropathy Afib with RVR DM Acute blood loss anemia GI bleed Hypokalemia hypophospatemia Disposition: DC/TX-03 [facility] Time spent for discharge: 35 mins Core Measure Documentation - Palliative Care Palliative Care/ Comfort Measures: Not Applicable - Core Measures Any of the following diagnoses?: none Exam - Physical Exam Narrative exam: General appearance: Present: no acute distress, other (lethargic, nonverbal) - HEENT Eyes: Present: PERRL, EOM intact ENT: no hearing intact, no clear oral mucosa, no dentition normal - Neck Neck: Present: supple, normal ROM. Absent: rigidity, enlarged thyroid, masses or JVD, cervical LAD - Respiratory Respiratory: negative: CTA, - Cardiovascular Rhythm: irregularly irregular Heart Sounds: Present: S1 & S2, gallop - Extremities Extremities: no ischemia, pulses intact, No edema, normal temperature, normal color, Full ROM, abnormal Extremity abnormal: edema Peripheral Pulses: within normal limits - Abdominal General gastrointestinal: soft, non-distended - Integumentary Integumentary: Present: clear - Psychiatric Psychiatric: other (nonverbal bedbound) - Neurologic Neurologic: focal deficits Abbott - Constitutional Vitals: Temp Pulse Resp BP Pulse Ox 99.3 F 93 H 20 125/58 93 04/15/18 02:48 04/15/18 04:00 04/15/18 02:48 04/15/18 02:48 04/15/18 02:48 Plan Activity: advance as tolerated, fall precautions Diet: per dietitian instruction, advance as tolerated Special Instructions: record daily weights, record daily BP diary Follow up with: PRIMARY MD ASTER [Primary Care Provider] - 3-5 Days AIDAN BELLA MD [Staff Physician] - 7 Days FLACA SEYMOUR MD [Staff Physician] - 7 Days Prescriptions: Calcium Carbonate [Oscal] 1,250 mg PO TID #90 tablet Insulin Regular, Human [HumuLIN R] 0 unit SQ AC #1 vial Midodrine [Proamatine] 5 mg PO TID@0800,1200,1600 #90 tablet
[2018-04-15] MEDS: DUONEB *Not for PRN Use IH SCH ×2 (09:06→20:29)
--- NOTE | 2018-04-15 09:07 | Progress Note ---
Assessment and Plan Assessment and plan: - Patient Problems (1) Anemia due to GI blood loss Current Visit: Yes Status: Acute Plan to address problem: Patient anemia secondary to GI blood loss. She was on elOquis for DVT Recently discontinue elaquis and treat with low-dose aspirin for now. No further evidence of GI bleed hemoglobin and hematocrit remains intact. Tolerating tube feed (2) Chronic Metabolic encephalopathy Current Visit: No Status: Acute Plan to address problem: Multifactorial secondary to past acute CVA (3) Atrial fibrillation with RVR Current Visit: No Status: Acute (4) CHF (congestive heart failure) Current Visit: No Status: Acute (5) Acute kidney injury Current Visit: Yes Status: Acute (6) Severe sepsis SECONDARY TO UTI Current Visit: Yes Status: Acute Plan to address problem: Patient with severe sepsis now improving with IV antibiotics. Patient has decreased white blood cell count and improving renal insufficiency as well as afebrile. TU present medical management IV antibiotics. Urine culture was SHOWS CONTAMINATION. Will not need prolonged abx. Central access to be discontinued following urology eval and procedure. (7) Right sided Hydronephrosis: Urology consult. Discussed with Urologist and also with patient son. History Interval history: Patient nonverbal currently not able to answer any questions. Patient was admitted due to acute GI blood loss anemia. At present stable now. Hospitalist Physical - Physical exam Narrative exam: General appearance: Present: no acute distress, other nonverbal) - HEENT Eyes: Present: PERRL, EOM intact ENT: no hearing intact, no clear oral mucosa, no dentition normal - Neck Neck: Present: supple, normal ROM. Absent: rigidity, enlarged thyroid, masses or JVD, cervical LAD - Respiratory Respiratory: negative: CTA, - Cardiovascular Rhythm: irregularly irregular Heart Sounds: Present: S1 & S2, gallop - Extremities Extremities: no ischemia, pulses intact, No edema, normal temperature, normal color, Full ROM, abnormal Extremity abnormal: edema Peripheral Pulses: within normal limits - Abdominal General gastrointestinal: soft, non-distended - Integumentary Integumentary: Present: clear - Psychiatric Psychiatric: other (nonverbal bedbound) - Neurologic Neurologic: focal deficits [place] - Constitutional Vitals: Temp Pulse Resp BP Pulse Ox 99.3 F 93 H 20 125/58 93 04/15/18 02:48 04/15/18 04:00 04/15/18 02:48 04/15/18 02:48 04/15/18 02:48 General appearance: Present: no acute distress, other (lethargic, nonverbal) Results - Labs CBC & Chem 7: 04/15/18 06:00 04/15/18 06:00 Labs: Laboratory Last Values WBC 10.2 K/mm3 (4.5-11.0) 04/15/18 06:00 RBC 2.92 M/mm3 (3.65-5.03) L 04/15/18 06:00 Hgb 8.6 gm/dl (10.1-14.3) L 04/15/18 06:00 Hct 26.5 % (30.3-42.9) L 04/15/18 06:00 MCV 91 fl (79-97) 04/15/18 06:00 MCH 30 pg (28-32) 04/15/18 06:00 MCHC 33 % (30-34) 04/15/18 06:00 RDW 17.0 % (13.2-15.2) H 04/15/18 06:00 Plt Count 200 K/mm3 (140-440) 04/15/18 06:00 Lymph % (Auto) 9.6 % (13.4-35.0) L 04/15/18 06:00 [place] % (Auto) 6.4 % (0.0-7.3) 04/15/18 06:00 Eos % (Auto) 1.3 % (0.0-4.3) 04/15/18 06:00 Baso % (Auto) 0.1 % (0.0-1.8) 04/15/18 06:00 Lymph # 1.0 K/mm3 (1.2-5.4) L 04/15/18 06:00 [place] # 0.7 K/mm3 (0.0-0.8) 04/15/18 06:00 Eos # 0.1 K/mm3 (0.0-0.4) 04/15/18 06:00 Baso # 0.0 K/mm3 (0.0-0.1) 04/15/18 06:00 Add Manual Diff Complete 04/09/18 00:27 Total Counted 100 04/09/18 00:27 Seg Neutrophils % 82.6 % (40.0-70.0) H 04/15/18 06:00 Seg Neuts % (Manual) 89.0 % (40.0-70.0) H 04/09/18 00:27 Band Neutrophils % 6.0 % 04/09/18 00:27 Lymphocytes % (Manual) 5.0 % (13.4-35.0) L 04/09/18 00:27 Reactive Lymphs % (Man) 0 % 04/09/18 00:27 Monocytes % (Manual) 0 % (0.0-7.3) 04/09/18 00:27 Eosinophils % (Manual) 0 % (0.0-4.3) 04/09/18 00:27 Basophils % (Manual) 0 % (0.0-1.8) 04/09/18 00:27 Metamyelocytes % 0 % 04/09/18 00:27 Myelocytes % 0 % 04/09/18 00:27 Promyelocytes % 0 % 04/09/18 00: Blast Cells % 0 % 04/09/18 00:27 Nucleated RBC % Not Reportable 04/09/18 00:27 Seg Neutrophils # 8.4 K/mm3 (1.8-7.7) H 04/15/18 06:00 Seg Neutrophils # Man 12.9 K/mm3 (1.8-7.7) H 04/09/18 00:27 Band Neutrophils # 0.9 K/mm3 04/09/18 00:27 Lymphocytes # (Manual) 0.7 K/mm3 (1.2-5.4) L 04/09/18 00:27 Abs React Lymphs (Man) 0.0 K/mm3 04/09/18 00:27 Monocytes # (Manual) 0.0 K/mm3 (0.0-0.8) 04/09/18 00:27 Eosinophils # (Manual) 0.0 K/mm3 (0.0-0.4) 04/09/18 00:27 Basophils # (Manual) 0.0 K/mm3 (0.0-0.1) 04/09/18 00:27 Metamyelocytes # 0.0 K/mm3 04/09/18 00:27 Myelocytes # 0.0 K/mm3 04/09/18 00:27 Promyelocytes # 0.0 K/mm3 04/09/18 00:27 Blast Cells # 0.0 K/mm3 04/09/18 00:27 WBC Morphology Not Reportable 04/09/18 00:27 Hypersegmented Neuts Not Reportable 04/09/18 00:27 Hyposegmented Neuts Not Reportable 04/09/18 00:27 Hypogranular Neuts Not Reportable 04/09/18 00:27 Smudge Cells Not Reportable 04/09/18 00:27 Toxic Granulation Not Reportable 04/09/18 00:27 Toxic Vacuolation Not Reportable 04/09/18 00:27 Dohle Bodies Not Reportable 04/09/18 00:27 Pelger-Huet Anomaly Not Reportable 04/09/18 00:27 Rene Rods Not Reportable 04/09/18 00:27 Platelet Estimate Consistent w auto 04/09/18 00:27 Clumped Platelets Not Reportable 04/09/18 00:27 Plt Clumps, EDTA Not Reportable 04/09/18 00:27 Large Platelets Not Reportable 04/09/18 00:27 Giant Platelets Not Reportable 04/09/18 00:27 Platelet Satelliting Not Reportable 04/09/18 00:27 Plt Morphology Comment Not Reportable 04/09/18 00:27 RBC Morphology Not Reportable 04/09/18 00:27 Dimorphic RBCs Not Reportable 04/09/18 00:27 Polychromasia Not Reportable 04/09/18 00:27 Hypochromasia 1+ 04/09/18 00:27 Poikilocytosis Not Reportable 04/09/18 00:27 Anisocytosis 1+ 04/09/18 00:27 Microcytosis Not Reportable 04/09/18 00:27 Macrocytosis Not Reportable 04/09/18 00:27 Spherocytes Not Reportable 04/09/18 00:27 Pappenheimer Bodies Not Reportable 04/09/18 00:27 Sickle Cells Not Reportable 04/09/18 00:27 Target Cells Not Reportable 04/09/18 00:27 Tear Drop Cells Not Reportable 04/09/18 00:27 Ovalocytes Not Reportable 04/09/18 00:27 Helmet Cells Not Reportable 04/09/18 00:27 Maldonado-Gas Bodies Not Reportable 04/09/18 00:27 [place] Rings Not Reportable 04/09/18 00:27 Ric Cells Not Reportable 04/09/18 00:27 Bite Cells Not Reportable 04/09/18 00:27 Crenated Cell Not Reportable 04/09/18 00:27 Elliptocytes Not Reportable 04/09/18 00:27 Acanthocytes (Spur) Not Reportable 04/09/18 00:27 Rouleaux Not Reportable 04/09/18 00:27 Hemoglobin C Crystals Not Reportable 04/09/18 00:27 Schistocytes Not Reportable 04/09/18 00:27 Malaria parasites Not Reportable 04/09/18 00:27 Ajay Bodies Not Reportable 04/09/18 00:27 Hem Pathologist Commnt No 04/09/18 00:27 POC ABG pH 7.466 (7.35-7.45) H 04/09/18 12:42 POC ABG pCO2 24.6 (35-45) L 04/09/18 12:42 POC ABG pO2 120 (80-105) H 04/09/18 12:42 POC ABG HCO3 17.7 04/09/18 12:42 POC ABG Total CO2 18 04/09/18 12:42 POC ABG O2 Sat 99 04/09/18 12:42 POC ABG Base Excess -6 04/09/18 12:42 FiO2 28 % 04/09/18 12:42 Sodium 143 mmol/L (137-145) 04/15/18 06:00 Potassium 3.5 mmol/L (3.6-5.0) L 04/15/18 06:00 Chloride 109.1 mmol/L (98-107) H 04/15/18 06:00 Carbon Dioxide 24 mmol/L (22-30) 04/15/18 06:00 Anion Gap 13 mmol/L 04/15/18 06:00 BUN 11 mg/dL (7-17) 04/15/18 06:00 Creatinine 0.4 mg/dL (0.7-1.2) L 04/15/18 06:00 Estimated GFR > 60 ml/min 04/15/18 06:00 BUN/Creatinine Ratio 28 % 04/15/18 06:00 Glucose 160 mg/dL (65-100) H 04/15/18 06:00 POC Glucose 165 (70-105) H 04/15/18 06:42 Lactic Acid 1.60 mmol/L (0.7-2.0) 04/08/18 23:30 Calcium 7.5 mg/dL (8.4-10.2) L 04/15/18 06:00 Ionized Calcium 4.5 mg/dL (4.8-5.6) L 04/11/18 05:19 Phosphorus 1.70 mg/dL (2.5-4.5) L D 04/14/18 05:30 Magnesium 2.60 mg/dL (1.7-2.3) H 04/09/18 16:50 Total Bilirubin 0.30 mg/dL (0.1-1.2) 04/08/18 02:50 AST 74 units/L (5-40) H 04/08/18 02:50 ALT 96 units/L (7-56) H 04/08/18 02:50 Alkaline Phosphatase 70 units/L (35-129) 04/08/18 02:50 Total Creatine Kinase 1194 units/L (30-135) H 04/08/18 12:46 CK-MB (CK-2) 5.1 ng/mL (0.0-4.0) H 04/08/18 12:46 CK-MB (CK-2) Rel Index 0.4 (0-4) 04/08/18 12:46 Troponin T 0.018 ng/mL (0.00-0.029) 04/08/18 12:46 Serum Total Protein 4.8 g/dL (6.1-8.1) L 04/10/18 09:06 Total Protein 6.2 g/dL (6.3-8.2) L 04/08/18 02:50 Albumin 1.8 g/dL (3.8-4.8) L 04/10/18 09:06 Albumin/Globulin Ratio 0.8 % 04/08/18 02:50 Rhsnd-8-Xvshnpfso 0.4 g/dL (0.2-0.3) H 04/10/18 09:06 Aifxc-9-Ixmcbtlzw 0.9 g/dL (0.5-0.9) 04/10/18 09:06 Beta Globulins 0.4 g/dL (0.2-0.5) 04/10/18 09:06 Gamma Globulins 1.0 g/dL (0.8-1.7) 04/10/18 09:06 Abnorm Protein Band 1 see below 04/10/18 09:06 PEP Interpretation see below H 04/10/18 09:06 Triglycerides 247 mg/dL (2-149) H 04/08/18 02:50 Cholesterol 116 mg/dL (50-199) 04/08/18 02:50 LDL Cholesterol Direct 55 mg/dL (50-130) 04/08/18 02:50 HDL Cholesterol 36 mg/dL (40-59) L 04/08/18 02:50 Cholesterol/HDL Ratio 3.22 % 04/08/18 02:50 TSH 0.753 mlU/mL (0.270-4.200) 04/09/18 16:50 Free T4 1.13 ng/dL (0.76-1.46) 04/09/18 16:50 PTH Intact 169.6 pg/mL (15-65) H 04/11/18 05:19 Urine Color Yellow (Yellow) 04/08/18 02:57 Urine Turbidity Turbid (Clear) 04/08/18 02:57 Urine pH 6.0 (5.0-7.0) 04/08/18 02:57 Ur Specific [place] 1.014 (1.003-1.030) 04/08/18 02:57 Urine Protein 100 mg/dl mg/dL (Negative) 04/08/18 02:57 Urine Glucose (UA) Neg mg/dL (Negative) 04/08/18 02:57 Urine Ketones Tr mg/dL (Negative) 04/08/18 02:57 Urine Blood Sm (Negative) 04/08/18 02:57 Urine Nitrite Neg (Negative) 04/08/18 02:57 Urine Bilirubin Neg (Negative) 04/08/18 02:57 Urine Urobilinogen 2.0 mg/dL (<2.0) 04/08/18 02:57 Ur Leukocyte Esterase Mod (Negative) 04/08/18 02:57 Urine WBC (Auto) > 182.0 /HPF (0.0-6.0) H 04/08/18 02:57 Urine RBC (Auto) 23.0 /HPF (0.0-6.0) 04/08/18 02:57 Urine Bacteria (Auto) 4+ /HPF (Negative) 04/08/18 02:57 Calcium Oxalate Crystal 2+ 04/08/18 02:57 Amorphous Crystals 2+ 04/08/18 02:57 Urine Creatinine 24.0 mg/dL (0.1-20.0) H 04/08/18 15:18 Protein/Creatinin Ratio 2.38 04/08/18 15:18 Urine Sodium 60 mmol/L 04/08/18 15:43 Urine Total Protein 57 mg/dL (5-11.8) H 04/08/18 15:18 Digoxin 1.1 ng/mL (0.9-2.0) 04/09/18 01:23 Group A Strep Rapid Negative (Negative) 04/08/18 00:35 Blood Type O POSITIVE 04/11/18 05:19 Antibody Screen Negative 04/11/18 05:19 Crossmatch See Detail 04/11/18 05:19 Nutrition/Malnutrition Assess - Dietary Evaluation Nutrition/Malnutrition Findings: Nutrition Notes Start: 04/09/18 16:11 Freq: Status: Active Protocol: Document 04/14/18 12:23 LETY (Rec: 04/14/18 12:24 LETY [id number]) Nutrition Notes Initial or Follow up Brief Note Current Diet TF - Glucerna 1.2 at 50ml/hr Subjective/Other Information Observed TF infusing at goal rate. Nutrition Intervention Follow-Up By: 04/17/18 Additional Comments F/U: stable TF, wt - Attestation Statement I have reviewed and agreed w/ Malnutrition eval & tx plan: Yes
[2018-04-15] MEDS: BICITRA PO SCH ×3 (09:56→22:01)
[2018-04-15] MEDS: FEOSOL PO SCH (09:56)
[2018-04-15] MEDS: ARICEPT PO SCH (09:56)
[2018-04-15] MEDS: PROAMATINE PO SCH ×3 (09:56→16:20)
[2018-04-15] MEDS: OSCAL PO SCH ×3 (09:57→21:59)
[2018-04-15] MEDS: HEPARIN SUB-Q SCH ×2 (09:57→22:00)
[2018-04-15] MEDS: PREVACID SOLUTAB FEEDTUBE SCH (09:59)
--- NOTE | 2018-04-15 11:48 | Consultation ---
History of Present Illness - Reason for Consult Consult date: 04/15/18 - History of Present Illness 87-year-old female presents to the emergency department via EMS from her longterm at [facility] with a complaint of low blood pressure and fever. The patient has a past medical history that includes previous CVA with right-sided hemiplegia, aphasia, history of CHF, [id number] diabetes, vascular dementia, anemia, hypertension and history of atrial fibrillation. The patient is a poor historian secondary to her current and chronic medical conditions. discussed with Dr. Fraire female family at bedside YUMI () rt hydronephrosis abd soft no mahajan A/P Rt hydro renal nuc scan to eval function pt with CVA & longterm Would benefit from perc tube only vs stent if needed await nuc scan Past History Past Medical History: atrial fib, diabetes, hypertension, hyperlipidemia, stroke Past Surgical History: Other (unknown) Social history: other (longterm resident). denies: alcohol abuse Medications and Allergies Allergies Allergy/AdvReac Type Severity Reaction Status Date / Time No Known Allergies Allergy Verified 04/08/18 02:43 Home Medications Medication Instructions Recorded Confirmed Last Taken Type Docusate Sodium [Colace CAP] 100 mg PO BID PRN 06/18/16 04/08/18 04/07/18 History Apixaban [Eliquis] 2.5 mg PO Q12HR #60 tablet 08/12/16 04/08/18 04/07/18 Rx Levothyroxine [Synthroid] 75 mcg PO DAILY@0600 #30 tablet 08/12/16 04/08/18 04/07/18 Rx Simvastatin (Nf) [Zocor TAB] 40 mg PO QHS #30 tablet 08/12/16 04/08/18 04/07/18 Rx Acetaminophen [Tylenol] 325 mg PO PRN 04/08/18 04/08/18 04/07/18 History Digoxin [Lanoxin] 0.125 mg PO DAILY 04/08/18 04/08/18 04/07/18 History Insulin Detemir [Levemir Flextouch] 100 unit SQ DAILY 04/08/18 04/08/18 04/07/18 History Lisinopril [Prinivil] 5 mg PO DAILY 04/08/18 04/08/18 04/07/18 History Metoclopramide HCl 5 mg PO Q6HR 04/08/18 04/08/18 04/07/18 History Metoprolol Tartrate 25 mg PO TID 04/08/18 04/08/18 04/07/18 History Potassium Chloride [Klor-Con] 20 meq PO DAILY 04/08/18 04/08/18 04/07/18 History Simvastatin 40 mg PO DAILY 04/08/18 04/08/18 04/07/18 History Torsemide [Demadex] 20 mg PO DAILY 04/08/18 04/08/18 04/07/18 History Active Meds: Active Medications Acetaminophen (Tylenol) 650 mg FEEDTUBE Q6H PRN PRN Reason: Pain, Mild (1-3) Last Admin: 04/12/18 14:22 Dose: 650 mg Documented by: Albuterol (Proventil) 2.5 mg IH Q4H PRN PRN Reason: Shortness Of Breath Albuterol/Ipratropium (Duoneb *Not For Prn Use*) 1 ampul IH BIDRT [facility] Last Admin: 04/15/18 09:06 Dose: 1 ampul Documented by: Lipase/Protease/Amylase (Pancrealexander Dr 10,500 Unit) 1 each FEEDTUBE PRN PRN PRN Reason: For Clogged Feeding Tube Calcium Carbonate/Glycine (Oscal) 1,250 mg PO TID [facility] Last Admin: 04/15/18 09:57 Dose: 1,250 mg Documented by: Citric Acid/Sodium Citrate (Bicitra) 30 ml PO TID [facility] Last Admin: 04/15/18 09:56 Dose: 30 ml Documented by: Docusate Sodium (Colace) 100 mg PO BID PRN PRN Reason: Constipation Donepezil HCl (Aricept) 5 mg PO QDAY [facility] Last Admin: 04/15/18 09:56 Dose: 5 mg Documented by: Ferrous Sulfate (Feosol) 325 mg PO QDAY [facility] Last Admin: 04/15/18 09:56 Dose: 325 mg Documented by: Heparin Sodium (Porcine) (Heparin) 5,000 unit SUB-Q Q12HR [facility] Last Admin: 04/15/18 09:57 Dose: 5,000 unit Documented by: Norepinephrine (Levophed Drip 4 Mg/Ns 250 Ml) 4 mg in 250 mls @ 7.5 mls/hr IV TITR JUNIOR; Protocol Last Titration: 04/09/18 18:35 Dose: 0 mcg/min, 0 mls/hr Documented by: Cefepime HCl (Maxipime/Ns 1 Gm/100 Ml) 1 gm in 100 mls @ 200 mls/hr IV Q8HR [facility]; Protocol Last Admin: 04/15/18 05:48 Dose: 200 mls/hr Documented by: Potassium Chloride (Kcl 10meq/100ml) 10 meq in 100 mls @ 100 mls/hr IV Q1H [facility] Stop: 04/15/18 11:59 Insulin Human Lispro (Humalog) 0 unit SUB-Q Q6HR [facility]; Protocol Last Admin: 04/15/18 06:40 Dose: 1 unit Documented by: Lansoprazole (Prevacid Solutab) 30 mg FEEDTUBE QDAY [facility] Last Admin: 04/15/18 09:59 Dose: 30 mg Documented by: Levothyroxine Sodium (Synthroid) 75 mcg PO DAILY@0600 [facility] Last Admin: 04/15/18 05:48 Dose: 75 mcg Documented by: Midodrine (Proamatine) 5 mg PO TID@0800,1200,1600 [facility] Last Admin: 04/15/18 09:56 Dose: 5 mg Documented by: Ondansetron HCl (Zofran) 4 mg IV Q8H PRN PRN Reason: Nausea And Vomiting Pravastatin Sodium (Pravachol) 80 mg PO QHS [facility] Last Admin: 04/14/18 22:09 Dose: 80 mg Documented by: Simple Syrup (Simple Syrup) 15 ml FEEDTUBE PRN PRN PRN Reason: Hypoglycemia Simple Syrup (Simple Syrup) 30 ml FEEDTUBE PRN PRN PRN Reason: Hypoglycemia Exam - Constitutional Vitals: Temp Pulse Resp BP Pulse Ox 97.9 F 110 H 18 132/75 99 04/15/18 07:58 04/15/18 09:11 04/15/18 09:11 04/15/18 07:58 04/15/18 09:07 Results - Labs CBC & Chem 7: 04/15/18 06:00 04/15/18 06:00 Labs: Abnormal lab results 04/10/18 04/14/18 04/14/18 Range/Units 09:06 13:01 19:00 RBC (3.65-5.03) M/mm3 Hgb (10.1-14.3) gm/dl Hct (30.3-42.9) % RDW (13.2-15.2) % Lymph % (Auto) (13.4-35.0) % Lymph # (1.2-5.4) K/mm3 Seg Neutrophils % (40.0-70.0) % Seg Neutrophils # (1.8-7.7) K/mm3 Potassium (3.6-5.0) mmol/L Chloride (98-107) mmol/L Creatinine (0.7-1.2) mg/dL Glucose (65-100) mg/dL POC Glucose 169 H 176 H (70-105) Calcium (8.4-10.2) mg/dL Serum Total Protein 4.8 L (6.1-8.1) g/dL Albumin 1.8 L (3.8-4.8) g/dL Mebif-3-Lrkdtsznu 0.4 H (0.2-0.3) g/dL PEP Interpretation see below H 04/15/18 04/15/18 04/15/18 Range/Units 00:53 06:00 06:00 RBC 2.92 L (3.65-5.03) M/mm3 Hgb 8.6 L (10.1-14.3) gm/dl Hct 26.5 L (30.3-42.9) % RDW 17.0 H (13.2-15.2) % Lymph % (Auto) 9.6 L (13.4-35.0) % Lymph # 1.0 L (1.2-5.4) K/mm3 Seg Neutrophils % 82.6 H (40.0-70.0) % Seg Neutrophils # 8.4 H (1.8-7.7) K/mm3 Potassium 3.5 L (3.6-5.0) mmol/L Chloride 109.1 H (98-107) mmol/L Creatinine 0.4 L (0.7-1.2) mg/dL Glucose 160 H (65-100) mg/dL POC Glucose 144 H (70-105) Calcium 7.5 L (8.4-10.2) mg/dL Serum Total Protein (6.1-8.1) g/dL Albumin (3.8-4.8) g/dL Azbwc-5-Zcndmzfmk (0.2-0.3) g/dL PEP Interpretation 04/15/18 Range/Units 06:42 RBC (3.65-5.03) M/mm3 Hgb (10.1-14.3) gm/dl Hct (30.3-42.9) % RDW (13.2-15.2) % Lymph % (Auto) (13.4-35.0) % Lymph # (1.2-5.4) K/mm3 Seg Neutrophils % (40.0-70.0) % Seg Neutrophils # (1.8-7.7) K/mm3 Potassium (3.6-5.0) mmol/L Chloride (98-107) mmol/L Creatinine (0.7-1.2) mg/dL Glucose (65-100) mg/dL POC Glucose 165 H (70-105) Calcium (8.4-10.2) mg/dL Serum Total Protein (6.1-8.1) g/dL Albumin (3.8-4.8) g/dL Ivkgf-7-Cebnflunn (0.2-0.3) g/dL PEP Interpretation
--- NOTE | 2018-04-15 12:49 | Progress Note ---
Assessment and Plan Patient is now on medical floor. Overall she seems to be doing well no new cardiac issues at this time. Continue current management. - Patient Problems (1) Chronic atrial fibrillation Current Visit: Yes Status: Chronic (2) Acute ischemic stroke Current Visit: No Status: Acute (3) Altered mental status Current Visit: No Status: Acute (4) CHF (congestive heart failure) Current Visit: No Status: Acute (5) Cardiomyopathy Current Visit: No Status: Acute Subjective Principal diagnosis: Severe sepsis with shock; UTI; ITZEL; Hypernatremia Interval history: Patient is now on regular floor. Appears to be comfortable and noncommunicative. Family in the room. Discussed with the patient's nurse in no new problems have been encountered cardiac-agarwal. Objective Vital Signs Temp Pulse Pulse Pulse Resp Resp BP 04/15/18 10:00 100 H 04/15/18 09:11 110 H 18 04/15/18 09:07 04/15/18 09:05 109 H 15 04/15/18 07:58 97.9 F 109 H 20 132/75 04/15/18 04:00 93 H 04/15/18 02:48 99.3 F 93 H 20 04/14/18 22:00 98 H 04/14/18 21:00 99.8 F H 103 H 22 04/14/18 20:20 99.8 F H 98 H 22 120/72 04/14/18 20:00 103 H 04/14/18 19:41 114 H 21 116/65 04/14/18 19:31 101 H 18 116/65 04/14/18 19:21 94 H 25 H 116/65 04/14/18 19:14 04/14/18 19:08 100 H 20 04/14/18 19:00 96 H 24 116/65 04/14/18 18:00 87 114/65 04/14/18 17:00 85 24 113/73 04/14/18 16:00 97.6 F 94 H 23 116/68 04/14/18 15:00 108 H 25 H 128/73 04/14/18 14:00 114 H 24 120/69 04/14/18 13:00 92 H 24 120/60 BP Pulse Ox 04/15/18 10:00 98 04/15/18 09:11 04/15/18 09:07 99 04/15/18 09:05 04/15/18 07:58 100 04/15/18 04:00 04/15/18 02:48 125/58 93 04/14/18 22:00 100 04/14/18 21:00 120/72 99 04/14/18 20:20 100 04/14/18 20:00 04/14/18 19:41 99 04/14/18 19:31 99 04/14/18 19:21 100 04/14/18 19:14 100 04/14/18 19:08 04/14/18 19:00 98 04/14/18 18:00 99 04/14/18 17:00 99 04/14/18 16:00 100 04/14/18 15:00 100 04/14/18 14:00 100 04/14/18 13:00 99 - Physical Examination General: Other (nonverbal) HEENT: Positive: PERRL Neck: Positive: neck supple Cardiac: Positive: Regular Rhythm Lungs: Positive: clear to auscultation Neuro: Positive: Grossly Intact, Other (CLYDE) Abdomen: Positive: Soft Skin: Negative: Rash, Wound Musculoskeletal: No Pain Extremities: Present: normal. Absent: edema - Labs and Meds CBC 04/15/18 Range/Units 06:00 WBC 10.2 (4.5-11.0) K/mm3 RBC 2.92 L (3.65-5.03) M/mm3 Hgb 8.6 L (10.1-14.3) gm/dl Hct 26.5 L (30.3-42.9) % Plt Count 200 (140-440) K/mm3 Lymph # 1.0 L (1.2-5.4) K/mm3 [place] # 0.7 (0.0-0.8) K/mm3 Eos # 0.1 (0.0-0.4) K/mm3 Baso # 0.0 (0.0-0.1) K/mm3 Comprehensive Metabolic Panel 04/10/18 04/15/18 Range/Units 09:06 06:00 Sodium 143 (137-145) mmol/L Potassium 3.5 L (3.6-5.0) mmol/L Chloride 109.1 H (98-107) mmol/L Carbon Dioxide 24 (22-30) mmol/L BUN 11 (7-17) mg/dL Creatinine 0.4 L (0.7-1.2) mg/dL Glucose 160 H (65-100) mg/dL Calcium 7.5 L (8.4-10.2) mg/dL Albumin 1.8 L (3.8-4.8) g/dL - Imaging and Cardiology EKG: report reviewed, image reviewed Echo: report reviewed (ECHO 04/09/18: EF 50-55%, mild LVH. 07/2016 showed EF 50- 55%, mild LVH, abnormal diastolic function, LA mild to mod dilated, mild MR, mod TR, RVSP 41mmHg. ) - Allied health notes Allied health notes reviewed: nursing
[2018-04-15] MEDS: KCL 10MEQ/100ML 10 MEQ/100 ML BAG IV SCH ×2 (12:59→13:46)
--- NOTE | 2018-04-15 14:02 | Progress Note ---
Assessment and Plan Patient sleeping with 2 litres O2 at this time.Not responding to verbal stimuli.O2 saturation 98%. No acute respiratory distress.Patient still running low grade temp - Patient Problems (1) Severe sepsis due to methicillin resistant Staphylococcus aureus (MRSA) with acute organ dysfunction Current Visit: Yes Status: Acute Plan to address problem: Patient is on cefepime. (2) Acute kidney injury Current Visit: Yes Status: Acute Plan to address problem: Management as per Nephrology. (3) Anemia due to GI blood loss Current Visit: Yes Status: Acute Plan to address problem: Management as per primary care. (4) UTI (urinary tract infection) Current Visit: Yes Status: Acute Qualifiers: Urinary tract infection type: acute cystitis Hematuria presence: without hematuria Qualified Code(s): N30.00 - Acute cystitis without hematuria Plan to address problem: Patient is on cefepime. (5) Chronic atrial fibrillation Current Visit: Yes Status: Chronic Plan to address problem: Patient is on Heparin 5000 units S/C q 12 hours. (6) Acute ischemic stroke Current Visit: No Status: Acute Plan to address problem: Management as per primary care and neurology. Subjective Date of service: 04/15/18 Principal diagnosis: Severe sepsis with shock; UTI; ITZEL; Hypernatremia Interval history: Patient sleeping with 2 litres O2 at this time.Not responding to verbal stimuli.O2 saturation 98%. No acute respiratory distress.Patient still running low grade temp. Objective Vital Signs - 12hr 04/15/18 04/15/18 04/15/18 02:48 04:00 07:58 Temperature 99.3 F 97.9 F Pulse Rate 93 H 93 H 109 H Pulse Rate [ Bilateral Throughout] Pulse Rate [ Right Radial] Respiratory 20 20 Rate Respiratory Rate [Bilateral Throughout] Blood Pressure 132/75 Blood Pressure 125/58 [Right] O2 Sat by Pulse 93 100 Oximetry 04/15/18 04/15/18 04/15/18 09:05 09:07 09:11 Temperature Pulse Rate Pulse Rate [ 109 H 110 H Bilateral Throughout] Pulse Rate [ Right Radial] Respiratory Rate Respiratory 15 18 Rate [Bilateral Throughout] Blood Pressure Blood Pressure [Right] O2 Sat by Pulse 99 Oximetry 04/15/18 10:00 Temperature Pulse Rate Pulse Rate [ Bilateral Throughout] Pulse Rate [ 100 H Right Radial] Respiratory Rate Respiratory Rate [Bilateral Throughout] Blood Pressure Blood Pressure [Right] O2 Sat by Pulse 98 Oximetry Constitutional: lethargic, asleep, other (elderly looking AF, normocephalic and atraumatic without overt respiratory distress) Eyes: non-icteric ENT: oropharynx dry, other Neck: supple, no lymphadenopathy, no JVD Effort: mildly labored Ascultation: Bilateral: diminished breath sounds Percussion: Bilateral: not dull Cardiovascular: regular rate and rhythm, other (Tachycardia, S1,S2, no murmurs, gallops or rubs) Gastrointestinal: normoactive bowel sounds, soft, non-tender, non-distended, other (no guarding, PEG in place, Abbott cahter with tea colored urine in place) Integumentary: other (loss of skin tugor) Extremities: no cyanosis, no edema, pink and warm, pulses normal, no ischemia or petechiae Neurologic: pupils equal and round, unable to assess (otherwise) Psychiatric: other (unable to assess) CBC and BMP: 04/15/18 06:00 04/15/18 06:00 ABG, PT/INR, D-dimer: ABG POC ABG pH 7.466 (7.35-7.45) H 04/09/18 12:42 POC ABG pCO2 24.6 (35-45) L 04/09/18 12:42 POC ABG pO2 120 (80-105) H 04/09/18 12:42 POC ABG HCO3 17.7 04/09/18 12:42 POC ABG Total CO2 18 04/09/18 12:42 POC ABG O2 Sat 99 04/09/18 12:42 Abnormal lab findings: Abnormal Labs 04/08/18 04/08/18 04/08/18 02:50 02:50 02:50 WBC 16.5 H RBC 3.37 L Hgb 9.7 L Hct RDW 17.6 H Lymph % (Auto) 11.0 L Lymph # [place] # 1.0 H Seg Neutrophils % 82.7 H Seg Neuts % (Manual) Lymphocytes % (Manual) Seg Neutrophils # 13.7 H Seg Neutrophils # Man Lymphocytes # (Manual) POC ABG pH POC ABG pCO2 POC ABG pO2 Sodium 152 H Potassium Chloride 108.9 H Carbon Dioxide BUN 102 H Creatinine 1.7 H Glucose 291 H POC Glucose Lactic Acid 2.70 H* Calcium 7.8 L Ionized Calcium Phosphorus Magnesium AST 74 H ALT 96 H Total Creatine Kinase CK-MB (CK-2) Troponin T 0.068 H Serum Total Protein Total Protein 6.2 L Albumin 2.7 L Vlnst-3-Smzbzybkv PEP Interpretation Triglycerides 247 H HDL Cholesterol 36 L PTH Intact Urine WBC (Auto) Urine Creatinine Urine Total Protein Crossmatch 04/08/18 04/08/18 04/08/18 02:50 02:57 03:44 WBC RBC Hgb Hct RDW Lymph % (Auto) Lymph # [place] # Seg Neutrophils % Seg Neuts % (Manual) Lymphocytes % (Manual) Seg Neutrophils # Seg Neutrophils # Man Lymphocytes # (Manual) POC ABG pH POC ABG pCO2 POC ABG pO2 Sodium Potassium Chloride Carbon Dioxide BUN Creatinine Glucose POC Glucose 289 H Lactic Acid Calcium Ionized Calcium Phosphorus Magnesium AST ALT Total Creatine Kinase CK-MB (CK-2) Troponin T Serum Total Protein Total Protein Albumin Vgbnx-9-Hgkfbwkkq PEP Interpretation Triglycerides HDL Cholesterol PTH Intact Urine WBC (Auto) > 182.0 H Urine Creatinine Urine Total Protein Crossmatch See Detail 04/08/18 04/08/18 04/08/18 04:30 05:59 05:59 WBC RBC Hgb Hct RDW Lymph % (Auto) Lymph # [place] # Seg Neutrophils % Seg Neuts % (Manual) Lymphocytes % (Manual) Seg Neutrophils # Seg Neutrophils # Man Lymphocytes # (Manual) POC ABG pH POC ABG pCO2 POC ABG pO2 Sodium Potassium Chloride Carbon Dioxide BUN Creatinine Glucose POC Glucose Lactic Acid 3.50 H* 2.70 H* Calcium Ionized Calcium Phosphorus Magnesium AST ALT Total Creatine Kinase 1203 H CK-MB (CK-2) 4.7 H Troponin T 0.042 H D Serum Total Protein Total Protein Albumin Vnqka-4-Deckntpee PEP Interpretation Triglycerides HDL Cholesterol PTH Intact Urine WBC (Auto) Urine Creatinine Urine Total Protein Crossmatch 04/08/18 04/08/18 04/08/18 06:04 07:06 10:53 WBC RBC Hgb Hct RDW Lymph % (Auto) Lymph # [place] # Seg Neutrophils % Seg Neuts % (Manual) Lymphocytes % (Manual) Seg Neutrophils # Seg Neutrophils # Man Lymphocytes # (Manual) POC ABG pH POC ABG pCO2 POC ABG pO2 Sodium Potassium Chloride Carbon Dioxide BUN Creatinine Glucose POC Glucose 323 H Lactic Acid 2.40 H* 2.30 H* Calcium Ionized Calcium Phosphorus Magnesium AST ALT Total Creatine Kinase CK-MB (CK-2) Troponin T Serum Total Protein Total Protein Albumin Kilzo-4-Ucocynczj PEP Interpretation Triglycerides HDL Cholesterol PTH Intact Urine WBC (Auto) Urine Creatinine Urine Total Protein Crossmatch 04/08/18 04/08/18 04/08/18 12:07 12:46 13:17 WBC RBC Hgb Hct RDW Lymph % (Auto) Lymph # [place] # Seg Neutrophils % Seg Neuts % (Manual) Lymphocytes % (Manual) Seg Neutrophils # Seg Neutrophils # Man Lymphocytes # (Manual) POC ABG pH POC ABG pCO2 POC ABG pO2 Sodium Potassium Chloride Carbon Dioxide BUN Creatinine Glucose POC Glucose 318 H 335 H Lactic Acid Calcium Ionized Calcium Phosphorus Magnesium AST ALT Total Creatine Kinase 1194 H CK-MB (CK-2) 5.1 H Troponin T Serum Total Protein Total Protein Albumin Nlkvh-8-Uxlwmwhhl PEP Interpretation Triglycerides HDL Cholesterol PTH Intact Urine WBC (Auto) Urine Creatinine Urine Total Protein Crossmatch 04/08/18 04/08/18 04/08/18 13:19 14:32 15:18 WBC RBC Hgb Hct RDW Lymph % (Auto) Lymph # [place] # Seg Neutrophils % Seg Neuts % (Manual) Lymphocytes % (Manual) Seg Neutrophils # Seg Neutrophils # Man Lymphocytes # (Manual) POC ABG pH POC ABG pCO2 POC ABG pO2 Sodium Potassium Chloride Carbon Dioxide BUN Creatinine Glucose POC Glucose 291 H Lactic Acid 2.60 H* Calcium Ionized Calcium Phosphorus Magnesium AST ALT Total Creatine Kinase CK-MB (CK-2) Troponin T Serum Total Protein Total Protein Albumin Pxrhv-6-Swimbnzhq PEP Interpretation Triglycerides HDL Cholesterol PTH Intact Urine WBC (Auto) Urine Creatinine 24.0 H Urine Total Protein 57 H Crossmatch 04/08/18 04/08/18 04/08/18 15:40 16:54 17:52 WBC RBC Hgb Hct RDW Lymph % (Auto) Lymph # [place] # Seg Neutrophils % Seg Neuts % (Manual) Lymphocytes % (Manual) Seg Neutrophils # Seg Neutrophils # Man Lymphocytes # (Manual) POC ABG pH POC ABG pCO2 POC ABG pO2 Sodium Potassium Chloride Carbon Dioxide BUN Creatinine Glucose POC Glucose 280 H 226 H Lactic Acid 3.10 H* Calcium Ionized Calcium Phosphorus Magnesium AST ALT Total Creatine Kinase CK-MB (CK-2) Troponin T Serum Total Protein Total Protein Albumin Lxpxv-4-Sinysmuub PEP Interpretation Triglycerides HDL Cholesterol PTH Intact Urine WBC (Auto) Urine Creatinine Urine Total Protein Crossmatch 04/08/18 04/08/18 04/08/18 18:35 19:18 19:57 WBC RBC Hgb Hct RDW Lymph % (Auto) Lymph # [place] # Seg Neutrophils % Seg Neuts % (Manual) Lymphocytes % (Manual) Seg Neutrophils # Seg Neutrophils # Man Lymphocytes # (Manual) POC ABG pH POC ABG pCO2 POC ABG pO2 Sodium Potassium Chloride Carbon Dioxide BUN Creatinine Glucose POC Glucose 247 H Lactic Acid 2.60 H* 2.60 H* Calcium Ionized Calcium Phosphorus Magnesium AST ALT Total Creatine Kinase CK-MB (CK-2) Troponin T Serum Total Protein Total Protein Albumin Uzfyl-3-Koqeifsqa PEP Interpretation Triglycerides HDL Cholesterol PTH Intact Urine WBC (Auto) Urine Creatinine Urine Total Protein Crossmatch 04/08/18 04/08/18 04/09/18 21:41 22:56 00:27 WBC 14.5 H RBC 2.78 L Hgb 8.1 L Hct 26.4 L RDW 16.7 H Lymph % (Auto) Lymph # [place] # Seg Neutrophils % Seg Neuts % (Manual) 89.0 H Lymphocytes % (Manual) 5.0 L Seg Neutrophils # Seg Neutrophils # Man 12.9 H Lymphocytes # (Manual) 0.7 L POC ABG pH POC ABG pCO2 POC ABG pO2 Sodium Potassium Chloride Carbon Dioxide BUN Creatinine Glucose POC Glucose 164 H Lactic Acid 3.80 H* Calcium Ionized Calcium Phosphorus Magnesium AST ALT Total Creatine Kinase CK-MB (CK-2) Troponin T Serum Total Protein Total Protein Albumin Vauex-9-Xcpdambcs PEP Interpretation Triglycerides HDL Cholesterol PTH Intact Urine WBC (Auto) Urine Creatinine Urine Total Protein Crossmatch 04/09/18 04/09/18 04/09/18 00:27 02:54 05:51 WBC RBC Hgb Hct RDW Lymph % (Auto) Lymph # [place] # Seg Neutrophils % Seg Neuts % (Manual) Lymphocytes % (Manual) Seg Neutrophils # Seg Neutrophils # Man Lymphocytes # (Manual) POC ABG pH POC ABG pCO2 POC ABG pO2 Sodium 149 H Potassium Chloride 118.4 H Carbon Dioxide BUN 38 H Creatinine 0.6 L D Glucose 153 H POC Glucose 151 H 203 H Lactic Acid Calcium 6.6 L D Ionized Calcium Phosphorus Magnesium AST ALT Total Creatine Kinase CK-MB (CK-2) Troponin T Serum Total Protein Total Protein Albumin Pyvyc-8-Drbnjbfcr PEP Interpretation Triglycerides HDL Cholesterol PTH Intact Urine WBC (Auto) Urine Creatinine Urine Total Protein Crossmatch 04/09/18 04/09/18 04/09/18 06:00 06:00 10:18 WBC 13.2 H RBC 2.84 L Hgb 8.2 L Hct 27.1 L RDW 17.2 H Lymph % (Auto) 8.5 L Lymph # 1.1 L [place] # Seg Neutrophils % 87.2 H Seg Neuts % (Manual) Lymphocytes % (Manual) Seg Neutrophils # 11.5 H Seg Neutrophils # Man Lymphocytes # (Manual) POC ABG pH POC ABG pCO2 POC ABG pO2 Sodium 152 H Potassium Chloride 119.6 H Carbon Dioxide 21 L BUN 33 H Creatinine Glucose 187 H POC Glucose 217 H Lactic Acid Calcium 6.8 L Ionized Calcium Phosphorus Magnesium AST ALT Total Creatine Kinase CK-MB (CK-2) Troponin T Serum Total Protein Total Protein Albumin Wkoby-2-Tkdofrlnw PEP Interpretation Triglycerides HDL Cholesterol PTH Intact Urine WBC (Auto) Urine Creatinine Urine Total Protein Crossmatch 04/09/18 04/09/18 04/09/18 12:42 16:50 17:40 WBC RBC Hgb Hct RDW Lymph % (Auto) Lymph # [place] # Seg Neutrophils % Seg Neuts % (Manual) Lymphocytes % (Manual) Seg Neutrophils # Seg Neutrophils # Man Lymphocytes # (Manual) POC ABG pH 7.466 H POC ABG pCO2 24.6 L POC ABG pO2 120 H Sodium Potassium Chloride Carbon Dioxide BUN Creatinine Glucose POC Glucose 244 H Lactic Acid Calcium Ionized Calcium Phosphorus Magnesium 2.60 H AST ALT Total Creatine Kinase CK-MB (CK-2) Troponin T Serum Total Protein Total Protein Albumin Srigs-2-Bmgwrzann PEP Interpretation Triglycerides HDL Cholesterol PTH Intact Urine WBC (Auto) Urine Creatinine Urine Total Protein Crossmatch 04/09/18 04/10/18 04/10/18 23:55 00:33 05:00 WBC RBC 2.47 L Hgb 7.3 L Hct 23.6 L RDW 16.9 H Lymph % (Auto) Lymph # 1.1 L [place] # Seg Neutrophils % 82.0 H Seg Neuts % (Manual) Lymphocytes % (Manual) Seg Neutrophils # Seg Neutrophils # Man Lymphocytes # (Manual) POC ABG pH POC ABG pCO2 POC ABG pO2 Sodium Potassium Chloride Carbon Dioxide BUN Creatinine Glucose POC Glucose 233 H 176 H Lactic Acid Calcium Ionized Calcium Phosphorus Magnesium AST ALT Total Creatine Kinase CK-MB (CK-2) Troponin T Serum Total Protein Total Protein Albumin Ntoki-0-Ropjqmgtu PEP Interpretation Triglycerides HDL Cholesterol PTH Intact Urine WBC (Auto) Urine Creatinine Urine Total Protein Crossmatch 04/10/18 04/10/18 04/10/18 05:00 05:19 09:06 WBC RBC Hgb Hct RDW Lymph % (Auto) Lymph # [place] # Seg Neutrophils % Seg Neuts % (Manual) Lymphocytes % (Manual) Seg Neutrophils # Seg Neutrophils # Man Lymphocytes # (Manual) POC ABG pH POC ABG pCO2 POC ABG pO2 Sodium 150 H Potassium Chloride 120.0 H Carbon Dioxide 20 L BUN 21 H Creatinine 0.6 L Glucose 189 H POC Glucose 197 H Lactic Acid Calcium 6.5 L Ionized Calcium Phosphorus 2.10 L D Magnesium AST ALT Total Creatine Kinase CK-MB (CK-2) Troponin T Serum Total Protein 4.8 L Total Protein Albumin 1.8 L Alljs-0-Zmkkagzzl 0.4 H PEP Interpretation see below H Triglycerides HDL Cholesterol PTH Intact Urine WBC (Auto) Urine Creatinine Urine Total Protein Crossmatch 04/10/18 04/10/18 04/10/18 11:42 17:32 20:38 WBC RBC Hgb Hct RDW Lymph % (Auto) Lymph # [place] # Seg Neutrophils % Seg Neuts % (Manual) Lymphocytes % (Manual) Seg Neutrophils # Seg Neutrophils # Man Lymphocytes # (Manual) POC ABG pH POC ABG pCO2 POC ABG pO2 Sodium Potassium Chloride Carbon Dioxide BUN Creatinine Glucose POC Glucose 197 H 114 H 107 H Lactic Acid Calcium Ionized Calcium Phosphorus Magnesium AST ALT Total Creatine Kinase CK-MB (CK-2) Troponin T Serum Total Protein Total Protein Albumin Flkfa-2-Nsyeqzryl PEP Interpretation Triglycerides HDL Cholesterol PTH Intact Urine WBC (Auto) Urine Creatinine Urine Total Protein Crossmatch 04/11/18 04/11/18 04/11/18 00:24 04:01 05:19 WBC RBC 2.36 L Hgb 6.9 L Hct 22.5 L RDW 16.9 H Lymph % (Auto) 11.6 L Lymph # 1.0 L [place] # Seg Neutrophils % 84.4 H Seg Neuts % (Manual) Lymphocytes % (Manual) Seg Neutrophils # Seg Neutrophils # Man Lymphocytes # (Manual) POC ABG pH POC ABG pCO2 POC ABG pO2 Sodium Potassium Chloride Carbon Dioxide BUN Creatinine Glucose POC Glucose 110 H 137 H Lactic Acid Calcium Ionized Calcium Phosphorus Magnesium AST ALT Total Creatine Kinase CK-MB (CK-2) Troponin T Serum Total Protein Total Protein Albumin Yhlij-9-Rpthtexcb PEP Interpretation Triglycerides HDL Cholesterol PTH Intact Urine WBC (Auto) Urine Creatinine Urine Total Protein Crossmatch 04/11/18 04/11/18 04/11/18 05:19 05:19 05:19 WBC RBC Hgb Hct RDW Lymph % (Auto) Lymph # [place] # Seg Neutrophils % Seg Neuts % (Manual) Lymphocytes % (Manual) Seg Neutrophils # Seg Neutrophils # Man Lymphocytes # (Manual) POC ABG pH POC ABG pCO2 POC ABG pO2 Sodium Potassium Chloride 111.3 H Carbon Dioxide 15 L BUN Creatinine 0.6 L Glucose 137 H POC Glucose Lactic Acid Calcium 6.8 L Ionized Calcium 4.5 L Phosphorus 2.40 L Magnesium AST ALT Total Creatine Kinase CK-MB (CK-2) Troponin T Serum Total Protein Total Protein Albumin Wpmyq-5-Kyrqrdexa PEP Interpretation Triglycerides HDL Cholesterol PTH Intact 169.6 H Urine WBC (Auto) Urine Creatinine Urine Total Protein Crossmatch 04/11/18 04/11/18 04/11/18 05:19 08:21 12:41 WBC RBC Hgb Hct RDW Lymph % (Auto) Lymph # [place] # Seg Neutrophils % Seg Neuts % (Manual) Lymphocytes % (Manual) Seg Neutrophils # Seg Neutrophils # Man Lymphocytes # (Manual) POC ABG pH POC ABG pCO2 POC ABG pO2 Sodium Potassium Chloride Carbon Dioxide BUN Creatinine Glucose POC Glucose 159 H 180 H Lactic Acid Calcium Ionized Calcium Phosphorus Magnesium AST ALT Total Creatine Kinase CK-MB (CK-2) Troponin T Serum Total Protein Total Protein Albumin Exauw-5-Ffaoolpvl PEP Interpretation Triglycerides HDL Cholesterol PTH Intact Urine WBC (Auto) Urine Creatinine Urine Total Protein Crossmatch See Detail 04/11/18 04/11/18 04/12/18 16:05 21:11 00:15 WBC RBC Hgb Hct RDW Lymph % (Auto) Lymph # [place] # Seg Neutrophils % Seg Neuts % (Manual) Lymphocytes % (Manual) Seg Neutrophils # Seg Neutrophils # Man Lymphocytes # (Manual) POC ABG pH POC ABG pCO2 POC ABG pO2 Sodium Potassium Chloride Carbon Dioxide BUN Creatinine Glucose POC Glucose 165 H 133 H 106 H Lactic Acid Calcium Ionized Calcium Phosphorus Magnesium AST ALT Total Creatine Kinase CK-MB (CK-2) Troponin T Serum Total Protein Total Protein Albumin Phzzc-1-Jtecpurhf PEP Interpretation Triglycerides HDL Cholesterol PTH Intact Urine WBC (Auto) Urine Creatinine Urine Total Protein Crossmatch 04/12/18 04/12/18 04/12/18 03:51 06:39 09:03 WBC RBC 3.02 L Hgb 8.8 L Hct 27.2 L RDW 16.6 H Lymph % (Auto) 11.3 L Lymph # 1.1 L [place] # Seg Neutrophils % 80.8 H Seg Neuts % (Manual) Lymphocytes % (Manual) Seg Neutrophils # 7.9 H Seg Neutrophils # Man Lymphocytes # (Manual) POC ABG pH POC ABG pCO2 POC ABG pO2 Sodium Potassium Chloride Carbon Dioxide BUN Creatinine Glucose POC Glucose 134 H 121 H Lactic Acid Calcium Ionized Calcium Phosphorus Magnesium AST ALT Total Creatine Kinase CK-MB (CK-2) Troponin T Serum Total Protein Total Protein Albumin Izgmw-5-Oilawzikn PEP Interpretation Triglycerides HDL Cholesterol PTH Intact Urine WBC (Auto) Urine Creatinine Urine Total Protein Crossmatch 04/12/18 04/12/18 04/12/18 09:03 15:09 18:11 WBC RBC Hgb Hct RDW Lymph % (Auto) Lymph # [place] # Seg Neutrophils % Seg Neuts % (Manual) Lymphocytes % (Manual) Seg Neutrophils # Seg Neutrophils # Man Lymphocytes # (Manual) POC ABG pH POC ABG pCO2 POC ABG pO2 Sodium Potassium 3.2 L D Chloride 115.3 H Carbon Dioxide 14 L BUN Creatinine 0.6 L Glucose 118 H POC Glucose 122 H 150 H Lactic Acid Calcium 6.9 L Ionized Calcium Phosphorus 1.90 L D Magnesium AST ALT Total Creatine Kinase CK-MB (CK-2) Troponin T Serum Total Protein Total Protein Albumin Bktym-7-Kicqteidk PEP Interpretation Triglycerides HDL Cholesterol PTH Intact Urine WBC (Auto) Urine Creatinine Urine Total Protein Crossmatch 04/12/18 04/13/18 04/13/18 23:35 04:43 04:50 WBC RBC 3.05 L Hgb 9.0 L Hct 27.6 L RDW 17.3 H Lymph % (Auto) 9.9 L Lymph # 1.0 L [place] # Seg Neutrophils % 83.9 H Seg Neuts % (Manual) Lymphocytes % (Manual) Seg Neutrophils # 8.5 H Seg Neutrophils # Man Lymphocytes # (Manual) POC ABG pH POC ABG pCO2 POC ABG pO2 Sodium Potassium Chloride Carbon Dioxide BUN Creatinine Glucose POC Glucose 124 H 150 H Lactic Acid Calcium Ionized Calcium Phosphorus Magnesium AST ALT Total Creatine Kinase CK-MB (CK-2) Troponin T Serum Total Protein Total Protein Albumin Wrafs-7-Pjobxxaon PEP Interpretation Triglycerides HDL Cholesterol PTH Intact Urine WBC (Auto) Urine Creatinine Urine Total Protein Crossmatch 04/13/18 04/13/18 04/13/18 04:50 10:15 18:18 WBC RBC Hgb Hct RDW Lymph % (Auto) Lymph # [place] # Seg Neutrophils % Seg Neuts % (Manual) Lymphocytes % (Manual) Seg Neutrophils # Seg Neutrophils # Man Lymphocytes # (Manual) POC ABG pH POC ABG pCO2 POC ABG pO2 Sodium Potassium Chloride 111.1 H Carbon Dioxide 18 L BUN Creatinine 0.5 L Glucose 142 H POC Glucose 179 H 157 H Lactic Acid Calcium 7.1 L Ionized Calcium Phosphorus Magnesium AST ALT Total Creatine Kinase CK-MB (CK-2) Troponin T Serum Total Protein Total Protein Albumin Hdggn-0-Tgelxixnw PEP Interpretation Triglycerides HDL Cholesterol PTH Intact Urine WBC (Auto) Urine Creatinine Urine Total Protein Crossmatch 04/13/18 04/14/18 04/14/18 23:39 05:19 05:30 WBC RBC 2.86 L Hgb 8.5 L Hct 26.0 L RDW 16.9 H Lymph % (Auto) 9.1 L Lymph # 0.9 L [place] # Seg Neutrophils % 84.3 H Seg Neuts % (Manual) Lymphocytes % (Manual) Seg Neutrophils # 8.0 H Seg Neutrophils # Man Lymphocytes # (Manual) POC ABG pH POC ABG pCO2 POC ABG pO2 Sodium Potassium Chloride Carbon Dioxide BUN Creatinine Glucose POC Glucose 211 H 175 H Lactic Acid Calcium Ionized Calcium Phosphorus Magnesium AST ALT Total Creatine Kinase CK-MB (CK-2) Troponin T Serum Total Protein Total Protein Albumin Tsfak-3-Qrqkyvhvp PEP Interpretation Triglycerides HDL Cholesterol PTH Intact Urine WBC (Auto) Urine Creatinine Urine Total Protein Crossmatch 04/14/18 04/14/18 04/14/18 05:30 13:01 19:00 WBC RBC Hgb Hct RDW Lymph % (Auto) Lymph # [place] # Seg Neutrophils % Seg Neuts % (Manual) Lymphocytes % (Manual) Seg Neutrophils # Seg Neutrophils # Man Lymphocytes # (Manual) POC ABG pH POC ABG pCO2 POC ABG pO2 Sodium Potassium Chloride 110.0 H Carbon Dioxide 20 L BUN Creatinine 0.4 L Glucose 171 H POC Glucose 169 H 176 H Lactic Acid Calcium 7.3 L Ionized Calcium Phosphorus 1.70 L D Magnesium AST ALT Total Creatine Kinase CK-MB (CK-2) Troponin T Serum Total Protein Total Protein Albumin Iiolu-9-Ivehxbixm PEP Interpretation Triglycerides HDL Cholesterol PTH Intact Urine WBC (Auto) Urine Creatinine Urine Total Protein Crossmatch 04/15/18 04/15/18 04/15/18 00:53 06:00 06:00 WBC RBC 2.92 L Hgb 8.6 L Hct 26.5 L RDW 17.0 H Lymph % (Auto) 9.6 L Lymph # 1.0 L [place] # Seg Neutrophils % 82.6 H Seg Neuts % (Manual) Lymphocytes % (Manual) Seg Neutrophils # 8.4 H Seg Neutrophils # Man Lymphocytes # (Manual) POC ABG pH POC ABG pCO2 POC ABG pO2 Sodium Potassium 3.5 L Chloride 109.1 H Carbon Dioxide BUN Creatinine 0.4 L Glucose 160 H POC Glucose 144 H Lactic Acid Calcium 7.5 L Ionized Calcium Phosphorus Magnesium AST ALT Total Creatine Kinase CK-MB (CK-2) Troponin T Serum Total Protein Total Protein Albumin Efvxa-9-Vebjysgpp PEP Interpretation Triglycerides HDL Cholesterol PTH Intact Urine WBC (Auto) Urine Creatinine Urine Total Protein Crossmatch 04/15/18 04/15/18 06:42 11:27 WBC RBC Hgb Hct RDW Lymph % (Auto) Lymph # [place] # Seg Neutrophils % Seg Neuts % (Manual) Lymphocytes % (Manual) Seg Neutrophils # Seg Neutrophils # Man Lymphocytes # (Manual) POC ABG pH POC ABG pCO2 POC ABG pO2 Sodium Potassium Chloride Carbon Dioxide BUN Creatinine Glucose POC Glucose 165 H 197 H Lactic Acid Calcium Ionized Calcium Phosphorus Magnesium AST ALT Total Creatine Kinase CK-MB (CK-2) Troponin T Serum Total Protein Total Protein Albumin Gqpsk-6-Fvjvjcacf PEP Interpretation Triglycerides HDL Cholesterol PTH Intact Urine WBC (Auto) Urine Creatinine Urine Total Protein Crossmatch Chest x-ray: report reviewed (Bordedrline enlarged. Chronic fibrotic changes.No acute changes.), image reviewed Allied health notes reviewed: nursing
[2018-04-15] MEDS: PRAVACHOL PO SCH (22:01)
[2018-04-16] MEDS: HumaLOG SUB-Q SCH ×4 (00:56→18:29)
[2018-04-16] MEDS: MAXIPIME/NS 1 GM/100 ML 1 GM/100 ML BAG IV SCH ×3 (05:17→21:12)
[2018-04-16] MEDS: SYNTHROID PO SCH (05:17)
[2018-04-16] MEDS ORDERED: LASIX ONE (07:21)
[2018-04-16] MEDS ORDERED: LASIX IV ONE (08:00)
[2018-04-16] MEDS ORDERED: DUONEB *Not for PRN Use IH ONE (08:06)
--- NOTE | 2018-04-16 08:19 | Progress Note ---
Assessment and Plan Cultures: 04/08/2018 blood cultures: 1 out of 4 bottles positive for CoNS 04/08/2018 urine culture: 10-100K mixed bacteria 04/08/2018 GAS neg 04/10/2018 Stool culture neg, Giradia ag neg, Cryptosporidium ag neg A/P: 87-year-old female with prior CVA, right-sided hemiplegia, aphasia, CHF, diabetes mellitus, vascular dementia who is a custodial resident, admitted with: #1 Septic shock: Still spiking fevers and tachycardia. ; Source is likely urine. UA with significant pyuria. Chest x-ray not concerning for an obvious pneumonia. Renal ultrasound reveals chronic longstanding marked hydronephrosis of the right kidney, no stones or pylonephritis.Renal nuclear scan pending- Urology following #2 Urinary tract infection: urine culture 10-100K mixed bacteria, still thick sediment and significant pyuria Renal Nuclear scan shows normal function of the left kidney. Severe obstruction in the right kidney with little, if any, function. Split function measures 97% left kidney and 3% right kidney - Urology following #3 Acute on chronic encephalopathy: Likely metabolic and septic in etiology. #4 Acute kidney injury: resolved. #5 CoNS bacteremia: One out of 4 bottles positive for CoNS, likely contaminant. No further work up needed. Recs: continue IV Cefepime 1 gm q8 hrs await urology input [facility] M: [phone] O:[phone] Subjective Date of service: 04/16/18 Principal diagnosis: Severe sepsis with shock; UTI; ITZEL; Hypernatremia Interval history: Patient seen and examined. Nonverbal at baseline. No acute distress per bedside nurse. No family at bedside. Objective - Exam Narrative Exam: Constitutional: Somnolent in NAD on NC O2, non verbal Head, Ears, Nose, oral: Normocephalic, atraumatic. External ears, nose normal, OP clear Eyes: Conjunctivae/corneas clear. No icterus. No ptosis. Neck: Supple, no meningeal signs Cardiovascular: RRR Respiratory: Good air entry, clear to auscultation bilaterally GI: Soft, non-tender; bowel sounds normal. No peritoneal signs, +rectal tube, +G-tube thick sediment and significant pyuria continuing Musculoskeletal: No pedal edema, no cyanosis. Skin: No rash or abscess Hem/Lymphatic: No palpable cervical or supraclavicular nodes. No lymphangitis Psych: somnolent Neurological: somnolent, non verbal. - Constitutional Vitals: Vital Signs Temp Pulse Resp BP Pulse Ox 99.9 F H 136 H 20 129/68 100 04/16/18 03:31 04/16/18 03:31 04/16/18 03:31 04/16/18 03:31 04/16/18 03:31 Temperature -Last 24 Hours Temperature 99.9 F Temperature 98.3 F Temperature 99.3 F - Labs CBC & Chem 7: 04/16/18 08:46 04/16/18 08:46 Labs: Abnormal lab results 04/15/18 04/15/18 04/16/18 Range/Units 11:27 18:14 00:30 POC Glucose 197 H 178 H 148 H (70-105) 04/16/18 Range/Units 05:19 POC Glucose 156 H (70-105)
[2018-04-16 08:52] LABS: Hematocrit 24.2 % (30.3-42.9); Hemoglobin 7.9 gm/dl (10.1-14.3); Mean Corpuscular HGB Conc 33 % (30-34); Mean Corpuscular Volume 90 fl (79-97); Platelet Count 208 K/mm3 (140-440); Red Blood Count 2.69 M/mm3 (3.65-5.03); Red Cell Distribution Width 16.9 % (13.2-15.2)
[2018-04-16 09:14] LABS: BUN/Creatinine Ratio 24; Blood Urea Nitrogen 12 mg/dL (7-17); Calcium 7.7 mg/dL (8.4-10.2); Hemolysis Index 3
[2018-04-16] MEDS: PROAMATINE PO SCH ×3 (10:25→18:21)
[2018-04-16] MEDS: FEOSOL PO SCH (10:25)
[2018-04-16] MEDS: OSCAL PO SCH ×3 (10:26→21:11)
[2018-04-16] MEDS: BICITRA PO SCH ×3 (10:26→21:12)
[2018-04-16] MEDS: ARICEPT PO SCH (10:26)
[2018-04-16] MEDS: PREVACID SOLUTAB FEEDTUBE SCH (10:27)
[2018-04-16] MEDS: HEPARIN SUB-Q SCH ×2 (10:27→21:13)
--- NOTE | 2018-04-16 11:00 | Nuclear Medicine Report ---
NUCLEAR MEDICINE RENAL SCAN CAPTOPRIL/LASIX HISTORY: Right hydronephrosis, to evaluate function and renal obstruction. TECHNIQUE: 5 mCi of technetium 99m MAG3 was administered intravenously. Posterior perfusion and function images were obtained. Renogram curves were constructed. FINDINGS: Recent ultrasound demonstrated severe right hydronephrosis with cortical thinning in the right kidney suggesting chronic obstruction. The posterior perfusion images demonstrate normal protrusion to the left kidney. No appreciable perfusion to the right kidney. The posterior function images demonstrate normal uptake and excretion of the radiotracer in the left kidney. Time to peak function as 3 minutes. There is a normal excretory curve in the left kidney. Little, if any, uptake is appreciated in the right kidney and collecting system throughout this exam. There is no response to Lasix. Split function measures 97% left kidney and 3% right kidney. IMPRESSION: Normal function of the left kidney. Severe obstruction in the right kidney with little, if any, function. Split function measures 97% left kidney and 3% right kidney.
[2018-04-16] MEDS: DUONEB *Not for PRN Use IH SCH ×2 (11:23→22:01)
--- NOTE | 2018-04-16 12:13 | XRay Report ---
AP CHEST: HISTORY: CHF Mild cardiomegaly, mild pulmonary venous congestion and trace bilateral pleural effusions are identified. No obvious pneumonia. No pneumothorax. Right IJ venous catheter terminates in the right atrium. IMPRESSION: Mild CHF.
[2018-04-16] MEDS: TYLENOL FEEDTUBE PRN (12:17)
[2018-04-16] MEDS ORDERED: XOPENEX IH ONE (12:42)
[2018-04-16] MEDS ORDERED: ATROVENT IH ONE (12:42)
[2018-04-16] MEDS ORDERED: CARDIZEM IV ONE (12:47)
--- NOTE | 2018-04-16 13:40 | Progress Note ---
Assessment and Plan Patient sleeping with 2 litres O2 at this time.Not responding to verbal stimuli.O2 saturation 97%. No acute respiratory distress.Patient still running low grade temp - Patient Problems (1) Severe sepsis due to methicillin resistant Staphylococcus aureus (MRSA) with acute organ dysfunction Current Visit: Yes Status: Acute Plan to address problem: Patient is on cefepime. (2) Acute kidney injury Current Visit: Yes Status: Acute Plan to address problem: Management as per Nephrology. (3) Anemia due to GI blood loss Current Visit: Yes Status: Acute Plan to address problem: Management as per primary care. (4) UTI (urinary tract infection) Current Visit: Yes Status: Acute Qualifiers: Urinary tract infection type: acute cystitis Hematuria presence: without hematuria Qualified Code(s): N30.00 - Acute cystitis without hematuria Plan to address problem: Patient is on cefepime. (5) Chronic atrial fibrillation Current Visit: Yes Status: Chronic Plan to address problem: Patient is on Heparin 5000 units S/C q 12 hours. (6) Acute ischemic stroke Current Visit: No Status: Acute Plan to address problem: Management as per primary care and neurology. Subjective Date of service: 04/16/18 Principal diagnosis: Severe sepsis with shock; UTI; ITZEL; Hypernatremia Interval history: Patient sleeping with 2 litres O2 at this time.Not responding to verbal stimuli.O2 saturation 97%. No acute respiratory distress.Patient still running low grade temp. Objective Vital Signs - 12hr 04/16/18 04/16/18 04/16/18 03:31 10:00 11:24 Temperature 99.9 F H Pulse Rate 136 H Pulse Rate [ 114 H 115 H Bilateral Throughout] Respiratory 20 Rate Respiratory 18 19 Rate [Bilateral Throughout] Blood Pressure 129/68 O2 Sat by Pulse 100 99 Oximetry 04/16/18 04/16/18 04/16/18 11:45 12:43 13:30 Temperature 100.0 F H 99.9 F H Pulse Rate 158 H 165 H 117 H Pulse Rate [ Bilateral Throughout] Respiratory 20 20 Rate Respiratory Rate [Bilateral Throughout] Blood Pressure 140/98 140/98 121/69 O2 Sat by Pulse 98 95 Oximetry Constitutional: lethargic, asleep, other (elderly looking AF, normocephalic and atraumatic without overt respiratory distress) Eyes: non-icteric ENT: oropharynx dry, other Neck: supple, no lymphadenopathy, no JVD Effort: mildly labored Ascultation: Bilateral: diminished breath sounds Percussion: Bilateral: not dull Cardiovascular: regular rate and rhythm, other (Tachycardia, S1,S2, no murmurs, gallops or rubs) Gastrointestinal: normoactive bowel sounds, soft, non-tender, non-distended, other (no guarding, PEG in place, Abbott cahter with tea colored urine in place) Integumentary: other (loss of skin tugor) Extremities: no cyanosis, no edema, pink and warm, pulses normal, no ischemia or petechiae Neurologic: pupils equal and round, unable to assess (otherwise) Psychiatric: other (unable to assess) CBC and BMP: 04/16/18 08:46 04/16/18 08:46 ABG, PT/INR, D-dimer: ABG POC ABG pH 7.466 (7.35-7.45) H 04/09/18 12:42 POC ABG pCO2 24.6 (35-45) L 04/09/18 12:42 POC ABG pO2 120 (80-105) H 04/09/18 12:42 POC ABG HCO3 17.7 04/09/18 12:42 POC ABG Total CO2 18 04/09/18 12:42 POC ABG O2 Sat 99 04/09/18 12:42 Abnormal lab findings: Abnormal Labs 04/08/18 04/08/18 04/08/18 02:50 02:50 02:50 WBC 16.5 H RBC 3.37 L Hgb 9.7 L Hct RDW 17.6 H Lymph % (Auto) 11.0 L Lymph # [place] # 1.0 H Seg Neutrophils % 82.7 H Seg Neuts % (Manual) Lymphocytes % (Manual) Seg Neutrophils # 13.7 H Seg Neutrophils # Man Lymphocytes # (Manual) POC ABG pH POC ABG pCO2 POC ABG pO2 Sodium 152 H Potassium Chloride 108.9 H Carbon Dioxide BUN 102 H Creatinine 1.7 H Glucose 291 H POC Glucose Lactic Acid 2.70 H* Calcium 7.8 L Ionized Calcium Phosphorus Magnesium AST 74 H ALT 96 H Total Creatine Kinase CK-MB (CK-2) Troponin T 0.068 H Serum Total Protein Total Protein 6.2 L Albumin 2.7 L Copfv-6-Rcigusntq PEP Interpretation Triglycerides 247 H HDL Cholesterol 36 L PTH Intact Urine WBC (Auto) Urine Creatinine Urine Total Protein Crossmatch 04/08/18 04/08/18 04/08/18 02:50 02:57 03:44 WBC RBC Hgb Hct RDW Lymph % (Auto) Lymph # [place] # Seg Neutrophils % Seg Neuts % (Manual) Lymphocytes % (Manual) Seg Neutrophils # Seg Neutrophils # Man Lymphocytes # (Manual) POC ABG pH POC ABG pCO2 POC ABG pO2 Sodium Potassium Chloride Carbon Dioxide BUN Creatinine Glucose POC Glucose 289 H Lactic Acid Calcium Ionized Calcium Phosphorus Magnesium AST ALT Total Creatine Kinase CK-MB (CK-2) Troponin T Serum Total Protein Total Protein Albumin Anyqp-5-Opfatbxqe PEP Interpretation Triglycerides HDL Cholesterol PTH Intact Urine WBC (Auto) > 182.0 H Urine Creatinine Urine Total Protein Crossmatch See Detail 04/08/18 04/08/18 04/08/18 04:30 05:59 05:59 WBC RBC Hgb Hct RDW Lymph % (Auto) Lymph # [place] # Seg Neutrophils % Seg Neuts % (Manual) Lymphocytes % (Manual) Seg Neutrophils # Seg Neutrophils # Man Lymphocytes # (Manual) POC ABG pH POC ABG pCO2 POC ABG pO2 Sodium Potassium Chloride Carbon Dioxide BUN Creatinine Glucose POC Glucose Lactic Acid 3.50 H* 2.70 H* Calcium Ionized Calcium Phosphorus Magnesium AST ALT Total Creatine Kinase 1203 H CK-MB (CK-2) 4.7 H Troponin T 0.042 H D Serum Total Protein Total Protein Albumin Vgvoj-4-Rrwfxdfue PEP Interpretation Triglycerides HDL Cholesterol PTH Intact Urine WBC (Auto) Urine Creatinine Urine Total Protein Crossmatch 04/08/18 04/08/18 04/08/18 06:04 07:06 10:53 WBC RBC Hgb Hct RDW Lymph % (Auto) Lymph # [place] # Seg Neutrophils % Seg Neuts % (Manual) Lymphocytes % (Manual) Seg Neutrophils # Seg Neutrophils # Man Lymphocytes # (Manual) POC ABG pH POC ABG pCO2 POC ABG pO2 Sodium Potassium Chloride Carbon Dioxide BUN Creatinine Glucose POC Glucose 323 H Lactic Acid 2.40 H* 2.30 H* Calcium Ionized Calcium Phosphorus Magnesium AST ALT Total Creatine Kinase CK-MB (CK-2) Troponin T Serum Total Protein Total Protein Albumin Drgto-1-Qxwityyhh PEP Interpretation Triglycerides HDL Cholesterol PTH Intact Urine WBC (Auto) Urine Creatinine Urine Total Protein Crossmatch 01/04/08/18 04/08/18 12:07 12:46 13:17 WBC RBC Hgb Hct RDW Lymph % (Auto) Lymph # [place] # Seg Neutrophils % Seg Neuts % (Manual) Lymphocytes % (Manual) Seg Neutrophils # Seg Neutrophils # Man Lymphocytes # (Manual) POC ABG pH POC ABG pCO2 POC ABG pO2 Sodium Potassium Chloride Carbon Dioxide BUN Creatinine Glucose POC Glucose 318 H 335 H Lactic Acid Calcium Ionized Calcium Phosphorus Magnesium AST ALT Total Creatine Kinase 1194 H CK-MB (CK-2) 5.1 H Troponin T Serum Total Protein Total Protein Albumin Ishnd-2-Qgtxgljxq PEP Interpretation Triglycerides HDL Cholesterol PTH Intact Urine WBC (Auto) Urine Creatinine Urine Total Protein Crossmatch 04/08/18 04/08/18 04/08/18 13:19 14:32 15:18 WBC RBC Hgb Hct RDW Lymph % (Auto) Lymph # [place] # Seg Neutrophils % Seg Neuts % (Manual) Lymphocytes % (Manual) Seg Neutrophils # Seg Neutrophils # Man Lymphocytes # (Manual) POC ABG pH POC ABG pCO2 POC ABG pO2 Sodium Potassium Chloride Carbon Dioxide BUN Creatinine Glucose POC Glucose 291 H Lactic Acid 2.60 H* Calcium Ionized Calcium Phosphorus Magnesium AST ALT Total Creatine Kinase CK-MB (CK-2) Troponin T Serum Total Protein Total Protein Albumin Bcqij-9-Mlrwndiko PEP Interpretation Triglycerides HDL Cholesterol PTH Intact Urine WBC (Auto) Urine Creatinine 24.0 H Urine Total Protein 57 H Crossmatch 04/08/18 04/08/18 04/08/18 15:40 16:54 17:52 WBC RBC Hgb Hct RDW Lymph % (Auto) Lymph # [place] # Seg Neutrophils % Seg Neuts % (Manual) Lymphocytes % (Manual) Seg Neutrophils # Seg Neutrophils # Man Lymphocytes # (Manual) POC ABG pH POC ABG pCO2 POC ABG pO2 Sodium Potassium Chloride Carbon Dioxide BUN Creatinine Glucose POC Glucose 280 H 226 H Lactic Acid 3.10 H* Calcium Ionized Calcium Phosphorus Magnesium AST ALT Total Creatine Kinase CK-MB (CK-2) Troponin T Serum Total Protein Total Protein Albumin Qgkrc-2-Zipxbbcix PEP Interpretation Triglycerides HDL Cholesterol PTH Intact Urine WBC (Auto) Urine Creatinine Urine Total Protein Crossmatch 04/08/18 04/08/18 04/08/18 18:35 19:18 19:57 WBC RBC Hgb Hct RDW Lymph % (Auto) Lymph # [place] # Seg Neutrophils % Seg Neuts % (Manual) Lymphocytes % (Manual) Seg Neutrophils # Seg Neutrophils # Man Lymphocytes # (Manual) POC ABG pH POC ABG pCO2 POC ABG pO2 Sodium Potassium Chloride Carbon Dioxide BUN Creatinine Glucose POC Glucose 247 H Lactic Acid 2.60 H* 2.60 H* Calcium Ionized Calcium Phosphorus Magnesium AST ALT Total Creatine Kinase CK-MB (CK-2) Troponin T Serum Total Protein Total Protein Albumin Znenw-6-Mjzjgfzha PEP Interpretation Triglycerides HDL Cholesterol PTH Intact Urine WBC (Auto) Urine Creatinine Urine Total Protein Crossmatch 04/08/18 04/08/18 04/09/18 21:41 22:56 00:27 WBC 14.5 H RBC 2.78 L Hgb 8.1 L Hct 26.4 L RDW 16.7 H Lymph % (Auto) Lymph # [place] # Seg Neutrophils % Seg Neuts % (Manual) 89.0 H Lymphocytes % (Manual) 5.0 L Seg Neutrophils # Seg Neutrophils # Man 12.9 H Lymphocytes # (Manual) 0.7 L POC ABG pH POC ABG pCO2 POC ABG pO2 Sodium Potassium Chloride Carbon Dioxide BUN Creatinine Glucose POC Glucose 164 H Lactic Acid 3.80 H* Calcium Ionized Calcium Phosphorus Magnesium AST ALT Total Creatine Kinase CK-MB (CK-2) Troponin T Serum Total Protein Total Protein Albumin Rcuuw-5-Zhzbhsgyr PEP Interpretation Triglycerides HDL Cholesterol PTH Intact Urine WBC (Auto) Urine Creatinine Urine Total Protein Crossmatch 04/09/18 04/09/18 04/09/18 00:27 02:54 05:51 WBC RBC Hgb Hct RDW Lymph % (Auto) Lymph # [place] # Seg Neutrophils % Seg Neuts % (Manual) Lymphocytes % (Manual) Seg Neutrophils # Seg Neutrophils # Man Lymphocytes # (Manual) POC ABG pH POC ABG pCO2 POC ABG pO2 Sodium 149 H Potassium Chloride 118.4 H Carbon Dioxide BUN 38 H Creatinine 0.6 L D Glucose 153 H POC Glucose 151 H 203 H Lactic Acid Calcium 6.6 L D Ionized Calcium Phosphorus Magnesium AST ALT Total Creatine Kinase CK-MB (CK-2) Troponin T Serum Total Protein Total Protein Albumin Ipbtv-9-Fgxgtfuch PEP Interpretation Triglycerides HDL Cholesterol PTH Intact Urine WBC (Auto) Urine Creatinine Urine Total Protein Crossmatch 04/09/18 04/09/18 04/09/18 06:00 06:00 10:18 WBC 13.2 H RBC 2.84 L Hgb 8.2 L Hct 27.1 L RDW 17.2 H Lymph % (Auto) 8.5 L Lymph # 1.1 L [place] # Seg Neutrophils % 87.2 H Seg Neuts % (Manual) Lymphocytes % (Manual) Seg Neutrophils # 11.5 H Seg Neutrophils # Man Lymphocytes # (Manual) POC ABG pH POC ABG pCO2 POC ABG pO2 Sodium 152 H Potassium Chloride 119.6 H Carbon Dioxide 21 L BUN 33 H Creatinine Glucose 187 H POC Glucose 217 H Lactic Acid Calcium 6.8 L Ionized Calcium Phosphorus Magnesium AST ALT Total Creatine Kinase CK-MB (CK-2) Troponin T Serum Total Protein Total Protein Albumin Gqmye-6-Iizqgtagr PEP Interpretation Triglycerides HDL Cholesterol PTH Intact Urine WBC (Auto) Urine Creatinine Urine Total Protein Crossmatch 04/09/18 04/09/18 04/09/18 12:42 16:50 17:40 WBC RBC Hgb Hct RDW Lymph % (Auto) Lymph # [place] # Seg Neutrophils % Seg Neuts % (Manual) Lymphocytes % (Manual) Seg Neutrophils # Seg Neutrophils # Man Lymphocytes # (Manual) POC ABG pH 7.466 H POC ABG pCO2 24.6 L POC ABG pO2 120 H Sodium Potassium Chloride Carbon Dioxide BUN Creatinine Glucose POC Glucose 244 H Lactic Acid Calcium Ionized Calcium Phosphorus Magnesium 2.60 H AST ALT Total Creatine Kinase CK-MB (CK-2) Troponin T Serum Total Protein Total Protein Albumin Uaiyk-4-Erbvezsrj PEP Interpretation Triglycerides HDL Cholesterol PTH Intact Urine WBC (Auto) Urine Creatinine Urine Total Protein Crossmatch 04/09/18 04/10/18 04/10/18 23:55 00:33 05:00 WBC RBC 2.47 L Hgb 7.3 L Hct 23.6 L RDW 16.9 H Lymph % (Auto) Lymph # 1.1 L [place] # Seg Neutrophils % 82.0 H Seg Neuts % (Manual) Lymphocytes % (Manual) Seg Neutrophils # Seg Neutrophils # Man Lymphocytes # (Manual) POC ABG pH POC ABG pCO2 POC ABG pO2 Sodium Potassium Chloride Carbon Dioxide BUN Creatinine Glucose POC Glucose 233 H 176 H Lactic Acid Calcium Ionized Calcium Phosphorus Magnesium AST ALT Total Creatine Kinase CK-MB (CK-2) Troponin T Serum Total Protein Total Protein Albumin Rzdmn-5-Fvnypoggz PEP Interpretation Triglycerides HDL Cholesterol PTH Intact Urine WBC (Auto) Urine Creatinine Urine Total Protein Crossmatch 04/10/18 04/10/18 04/10/18 05:00 05:19 09:06 WBC RBC Hgb Hct RDW Lymph % (Auto) Lymph # [place] # Seg Neutrophils % Seg Neuts % (Manual) Lymphocytes % (Manual) Seg Neutrophils # Seg Neutrophils # Man Lymphocytes # (Manual) POC ABG pH POC ABG pCO2 POC ABG pO2 Sodium 150 H Potassium Chloride 120.0 H Carbon Dioxide 20 L BUN 21 H Creatinine 0.6 L Glucose 189 H POC Glucose 197 H Lactic Acid Calcium 6.5 L Ionized Calcium Phosphorus 2.10 L D Magnesium AST ALT Total Creatine Kinase CK-MB (CK-2) Troponin T Serum Total Protein 4.8 L Total Protein Albumin 1.8 L Ruimk-2-Qfbmtpqvm 0.4 H PEP Interpretation see below H Triglycerides HDL Cholesterol PTH Intact Urine WBC (Auto) Urine Creatinine Urine Total Protein Crossmatch 04/10/18 04/10/18 04/10/18 11:42 17:32 20:38 WBC RBC Hgb Hct RDW Lymph % (Auto) Lymph # [place] # Seg Neutrophils % Seg Neuts % (Manual) Lymphocytes % (Manual) Seg Neutrophils # Seg Neutrophils # Man Lymphocytes # (Manual) POC ABG pH POC ABG pCO2 POC ABG pO2 Sodium Potassium Chloride Carbon Dioxide BUN Creatinine Glucose POC Glucose 197 H 114 H 107 H Lactic Acid Calcium Ionized Calcium Phosphorus Magnesium AST ALT Total Creatine Kinase CK-MB (CK-2) Troponin T Serum Total Protein Total Protein Albumin Ddwsw-9-Nzaeyrmni PEP Interpretation Triglycerides HDL Cholesterol PTH Intact Urine WBC (Auto) Urine Creatinine Urine Total Protein Crossmatch 04/11/18 04/11/18 04/11/18 00:24 04:01 05:19 WBC RBC 2.36 L Hgb 6.9 L Hct 22.5 L RDW 16.9 H Lymph % (Auto) 11.6 L Lymph # 1.0 L [place] # Seg Neutrophils % 84.4 H Seg Neuts % (Manual) Lymphocytes % (Manual) Seg Neutrophils # Seg Neutrophils # Man Lymphocytes # (Manual) POC ABG pH POC ABG pCO2 POC ABG pO2 Sodium Potassium Chloride Carbon Dioxide BUN Creatinine Glucose POC Glucose 110 H 137 H Lactic Acid Calcium Ionized Calcium Phosphorus Magnesium AST ALT Total Creatine Kinase CK-MB (CK-2) Troponin T Serum Total Protein Total Protein Albumin Ybcql-3-Ziorznowb PEP Interpretation Triglycerides HDL Cholesterol PTH Intact Urine WBC (Auto) Urine Creatinine Urine Total Protein Crossmatch 04/11/18 04/11/18 04/11/18 05:19 05:19 05:19 WBC RBC Hgb Hct RDW Lymph % (Auto) Lymph # [place] # Seg Neutrophils % Seg Neuts % (Manual) Lymphocytes % (Manual) Seg Neutrophils # Seg Neutrophils # Man Lymphocytes # (Manual) POC ABG pH POC ABG pCO2 POC ABG pO2 Sodium Potassium Chloride 111.3 H Carbon Dioxide 15 L BUN Creatinine 0.6 L Glucose 137 H POC Glucose Lactic Acid Calcium 6.8 L Ionized Calcium 4.5 L Phosphorus 2.40 L Magnesium AST ALT Total Creatine Kinase CK-MB (CK-2) Troponin T Serum Total Protein Total Protein Albumin Ledbn-5-Wkvnzfymr PEP Interpretation Triglycerides HDL Cholesterol PTH Intact 169.6 H Urine WBC (Auto) Urine Creatinine Urine Total Protein Crossmatch 04/11/18 04/11/18 04/11/18 05:19 08:21 12:41 WBC RBC Hgb Hct RDW Lymph % (Auto) Lymph # [place] # Seg Neutrophils % Seg Neuts % (Manual) Lymphocytes % (Manual) Seg Neutrophils # Seg Neutrophils # Man Lymphocytes # (Manual) POC ABG pH POC ABG pCO2 POC ABG pO2 Sodium Potassium Chloride Carbon Dioxide BUN Creatinine Glucose POC Glucose 159 H 180 H Lactic Acid Calcium Ionized Calcium Phosphorus Magnesium AST ALT Total Creatine Kinase CK-MB (CK-2) Troponin T Serum Total Protein Total Protein Albumin Erroe-6-Zotlmpjfl PEP Interpretation Triglycerides HDL Cholesterol PTH Intact Urine WBC (Auto) Urine Creatinine Urine Total Protein Crossmatch See Detail 04/11/18 04/11/18 04/12/18 16:05 21:11 00:15 WBC RBC Hgb Hct RDW Lymph % (Auto) Lymph # [place] # Seg Neutrophils % Seg Neuts % (Manual) Lymphocytes % (Manual) Seg Neutrophils # Seg Neutrophils # Man Lymphocytes # (Manual) POC ABG pH POC ABG pCO2 POC ABG pO2 Sodium Potassium Chloride Carbon Dioxide BUN Creatinine Glucose POC Glucose 165 H 133 H 106 H Lactic Acid Calcium Ionized Calcium Phosphorus Magnesium AST ALT Total Creatine Kinase CK-MB (CK-2) Troponin T Serum Total Protein Total Protein Albumin Qzchd-5-Zirmqwrzm PEP Interpretation Triglycerides HDL Cholesterol PTH Intact Urine WBC (Auto) Urine Creatinine Urine Total Protein Crossmatch 04/12/18 04/12/18 04/12/18 03:51 06:39 09:03 WBC RBC 3.02 L Hgb 8.8 L Hct 27.2 L RDW 16.6 H Lymph % (Auto) 11.3 L Lymph # 1.1 L [place] # Seg Neutrophils % 80.8 H Seg Neuts % (Manual) Lymphocytes % (Manual) Seg Neutrophils # 7.9 H Seg Neutrophils # Man Lymphocytes # (Manual) POC ABG pH POC ABG pCO2 POC ABG pO2 Sodium Potassium Chloride Carbon Dioxide BUN Creatinine Glucose POC Glucose 134 H 121 H Lactic Acid Calcium Ionized Calcium Phosphorus Magnesium AST ALT Total Creatine Kinase CK-MB (CK-2) Troponin T Serum Total Protein Total Protein Albumin Ypmze-2-Dyxtlzbby PEP Interpretation Triglycerides HDL Cholesterol PTH Intact Urine WBC (Auto) Urine Creatinine Urine Total Protein Crossmatch 04/12/18 04/12/18 04/12/18 09:03 15:09 18:11 WBC RBC Hgb Hct RDW Lymph % (Auto) Lymph # [place] # Seg Neutrophils % Seg Neuts % (Manual) Lymphocytes % (Manual) Seg Neutrophils # Seg Neutrophils # Man Lymphocytes # (Manual) POC ABG pH POC ABG pCO2 POC ABG pO2 Sodium Potassium 3.2 L D Chloride 115.3 H Carbon Dioxide 14 L BUN Creatinine 0.6 L Glucose 118 H POC Glucose 122 H 150 H Lactic Acid Calcium 6.9 L Ionized Calcium Phosphorus 1.90 L D Magnesium AST ALT Total Creatine Kinase CK-MB (CK-2) Troponin T Serum Total Protein Total Protein Albumin Czldg-6-Oxrqxnhox PEP Interpretation Triglycerides HDL Cholesterol PTH Intact Urine WBC (Auto) Urine Creatinine Urine Total Protein Crossmatch 04/12/18 04/13/18 04/13/18 23:35 04:43 04:50 WBC RBC 3.05 L Hgb 9.0 L Hct 27.6 L RDW 17.3 H Lymph % (Auto) 9.9 L Lymph # 1.0 L [place] # Seg Neutrophils % 83.9 H Seg Neuts % (Manual) Lymphocytes % (Manual) Seg Neutrophils # 8.5 H Seg Neutrophils # Man Lymphocytes # (Manual) POC ABG pH POC ABG pCO2 POC ABG pO2 Sodium Potassium Chloride Carbon Dioxide BUN Creatinine Glucose POC Glucose 124 H 150 H Lactic Acid Calcium Ionized Calcium Phosphorus Magnesium AST ALT Total Creatine Kinase CK-MB (CK-2) Troponin T Serum Total Protein Total Protein Albumin Icnyx-0-Kcqxczeku PEP Interpretation Triglycerides HDL Cholesterol PTH Intact Urine WBC (Auto) Urine Creatinine Urine Total Protein Crossmatch 04/13/18 04/13/18 04/13/18 04:50 10:15 18:18 WBC RBC Hgb Hct RDW Lymph % (Auto) Lymph # [place] # Seg Neutrophils % Seg Neuts % (Manual) Lymphocytes % (Manual) Seg Neutrophils # Seg Neutrophils # Man Lymphocytes # (Manual) POC ABG pH POC ABG pCO2 POC ABG pO2 Sodium Potassium Chloride 111.1 H Carbon Dioxide 18 L BUN Creatinine 0.5 L Glucose 142 H POC Glucose 179 H 157 H Lactic Acid Calcium 7.1 L Ionized Calcium Phosphorus Magnesium AST ALT Total Creatine Kinase CK-MB (CK-2) Troponin T Serum Total Protein Total Protein Albumin Hvcfz-8-Oghfyosgy PEP Interpretation Triglycerides HDL Cholesterol PTH Intact Urine WBC (Auto) Urine Creatinine Urine Total Protein Crossmatch 04/13/18 04/14/18 04/14/18 23:39 05:19 05:30 WBC RBC 2.86 L Hgb 8.5 L Hct 26.0 L RDW 16.9 H Lymph % (Auto) 9.1 L Lymph # 0.9 L [place] # Seg Neutrophils % 84.3 H Seg Neuts % (Manual) Lymphocytes % (Manual) Seg Neutrophils # 8.0 H Seg Neutrophils # Man Lymphocytes # (Manual) POC ABG pH POC ABG pCO2 POC ABG pO2 Sodium Potassium Chloride Carbon Dioxide BUN Creatinine Glucose POC Glucose 211 H 175 H Lactic Acid Calcium Ionized Calcium Phosphorus Magnesium AST ALT Total Creatine Kinase CK-MB (CK-2) Troponin T Serum Total Protein Total Protein Albumin Asabf-4-Rnkgszlqw PEP Interpretation Triglycerides HDL Cholesterol PTH Intact Urine WBC (Auto) Urine Creatinine Urine Total Protein Crossmatch 04/14/18 04/14/18 04/14/18 05:30 13:01 19:00 WBC RBC Hgb Hct RDW Lymph % (Auto) Lymph # [place] # Seg Neutrophils % Seg Neuts % (Manual) Lymphocytes % (Manual) Seg Neutrophils # Seg Neutrophils # Man Lymphocytes # (Manual) POC ABG pH POC ABG pCO2 POC ABG pO2 Sodium Potassium Chloride 110.0 H Carbon Dioxide 20 L BUN Creatinine 0.4 L Glucose 171 H POC Glucose 169 H 176 H Lactic Acid Calcium 7.3 L Ionized Calcium Phosphorus 1.70 L D Magnesium AST ALT Total Creatine Kinase CK-MB (CK-2) Troponin T Serum Total Protein Total Protein Albumin Fckxi-6-Fopmdyjhi PEP Interpretation Triglycerides HDL Cholesterol PTH Intact Urine WBC (Auto) Urine Creatinine Urine Total Protein Crossmatch 04/15/18 04/15/18 04/15/18 00:53 06:00 06:00 WBC RBC 2.92 L Hgb 8.6 L Hct 26.5 L RDW 17.0 H Lymph % (Auto) 9.6 L Lymph # 1.0 L [place] # Seg Neutrophils % 82.6 H Seg Neuts % (Manual) Lymphocytes % (Manual) Seg Neutrophils # 8.4 H Seg Neutrophils # Man Lymphocytes # (Manual) POC ABG pH POC ABG pCO2 POC ABG pO2 Sodium Potassium 3.5 L Chloride 109.1 H Carbon Dioxide BUN Creatinine 0.4 L Glucose 160 H POC Glucose 144 H Lactic Acid Calcium 7.5 L Ionized Calcium Phosphorus Magnesium AST ALT Total Creatine Kinase CK-MB (CK-2) Troponin T Serum Total Protein Total Protein Albumin Mvxhk-8-Lqomktuci PEP Interpretation Triglycerides HDL Cholesterol PTH Intact Urine WBC (Auto) Urine Creatinine Urine Total Protein Crossmatch 04/15/18 04/15/18 04/15/18 06:42 11:27 18:14 WBC RBC Hgb Hct RDW Lymph % (Auto) Lymph # [place] # Seg Neutrophils % Seg Neuts % (Manual) Lymphocytes % (Manual) Seg Neutrophils # Seg Neutrophils # Man Lymphocytes # (Manual) POC ABG pH POC ABG pCO2 POC ABG pO2 Sodium Potassium Chloride Carbon Dioxide BUN Creatinine Glucose POC Glucose 165 H 197 H 178 H Lactic Acid Calcium Ionized Calcium Phosphorus Magnesium AST ALT Total Creatine Kinase CK-MB (CK-2) Troponin T Serum Total Protein Total Protein Albumin Ilegr-5-Vjkcieahf PEP Interpretation Triglycerides HDL Cholesterol PTH Intact Urine WBC (Auto) Urine Creatinine Urine Total Protein Crossmatch 04/16/18 04/16/18 04/16/18 00:30 05:19 08:46 WBC RBC 2.69 L Hgb 7.9 L Hct 24.2 L RDW 16.9 H Lymph % (Auto) Lymph # [place] # Seg Neutrophils % Seg Neuts % (Manual) Lymphocytes % (Manual) Seg Neutrophils # Seg Neutrophils # Man Lymphocytes # (Manual) POC ABG pH POC ABG pCO2 POC ABG pO2 Sodium Potassium Chloride Carbon Dioxide BUN Creatinine Glucose POC Glucose 148 H 156 H Lactic Acid Calcium Ionized Calcium Phosphorus Magnesium AST ALT Total Creatine Kinase CK-MB (CK-2) Troponin T Serum Total Protein Total Protein Albumin Aftfj-3-Wsjwanyjq PEP Interpretation Triglycerides HDL Cholesterol PTH Intact Urine WBC (Auto) Urine Creatinine Urine Total Protein Crossmatch 04/16/18 04/16/18 08:46 11:41 WBC RBC Hgb Hct RDW Lymph % (Auto) Lymph # [place] # Seg Neutrophils % Seg Neuts % (Manual) Lymphocytes % (Manual) Seg Neutrophils # Seg Neutrophils # Man Lymphocytes # (Manual) POC ABG pH POC ABG pCO2 POC ABG pO2 Sodium Potassium Chloride 108.0 H Carbon Dioxide BUN Creatinine 0.5 L Glucose 149 H POC Glucose 178 H Lactic Acid Calcium 7.7 L Ionized Calcium Phosphorus Magnesium AST ALT Total Creatine Kinase CK-MB (CK-2) Troponin T Serum Total Protein Total Protein Albumin Ffxqh-9-Libznexwr PEP Interpretation Triglycerides HDL Cholesterol PTH Intact Urine WBC (Auto) Urine Creatinine Urine Total Protein Crossmatch Chest x-ray: report reviewed (Mild CHF), image reviewed Allied health notes reviewed: nursing
--- NOTE | 2018-04-16 13:46 | Progress Note ---
Assessment and Plan Patient is now on medical floor. Overall she seems to be doing well no new cardiac issues at this time. Continue current management. Recommend resuming systemic AC if/when okay per GI. Nothing further to add from cardiac perspective at this time. Will follow on as needed basis. The patient has been seen in conjunction with Dr. TEO Mccarthy who agrees with the assessment and plan of care. - Patient Problems (1) Chronic atrial fibrillation Current Visit: Yes Status: Chronic (2) Acute ischemic stroke Current Visit: No Status: Acute (3) Altered mental status Current Visit: No Status: Acute (4) CHF (congestive heart failure) Current Visit: No Status: Acute (5) Cardiomyopathy Current Visit: No Status: Acute Subjective Date of service: 04/16/18 Principal diagnosis: Severe sepsis with shock; UTI; ITZEL; Hypernatremia Interval history: pt resting in bed, no apparent distress, nonverbal at baseline. family member at bedside. Objective Last Vital Signs Temp 99.9 F H 04/16/18 13:30 Pulse 128 H 04/16/18 13:33 Resp 20 04/16/18 13:33 BP 121/69 04/16/18 13:30 Pulse Ox 95 04/16/18 13:30 - Physical Examination General: Other (nonverbal) HEENT: Positive: PERRL Neck: Positive: neck supple Cardiac: Positive: irregularly irregular, S1/S2 Lungs: Positive: Decreased Breath Sounds Neuro: Positive: Grossly Intact, Other (CLYDE) Abdomen: Positive: Soft Skin: Negative: Rash, Wound Musculoskeletal: No Pain Extremities: Present: normal. Absent: edema - Labs and Meds CBC 04/16/18 Range/Units 08:46 WBC 10.2 (4.5-11.0) K/mm3 RBC 2.69 L (3.65-5.03) M/mm3 Hgb 7.9 L (10.1-14.3) gm/dl Hct 24.2 L (30.3-42.9) % Plt Count 208 (140-440) K/mm3 Comprehensive Metabolic Panel 04/16/18 Range/Units 08:46 Sodium 144 (137-145) mmol/L Potassium 3.9 (3.6-5.0) mmol/L Chloride 108.0 H (98-107) mmol/L Carbon Dioxide 26 (22-30) mmol/L BUN 12 (7-17) mg/dL Creatinine 0.5 L (0.7-1.2) mg/dL Glucose 149 H (65-100) mg/dL Calcium 7.7 L (8.4-10.2) mg/dL - Imaging and Cardiology EKG: report reviewed, image reviewed Echo: report reviewed (ECHO 04/09/18: EF 50-55%, mild LVH. 07/2016 showed EF 50- 55%, mild LVH, abnormal diastolic function, LA mild to mod dilated, mild MR, mod TR, RVSP 41mmHg. ) - Allied health notes Allied health notes reviewed: nursing
[2018-04-16] MEDS ORDERED: IMODIUM PO PRN (15:14)
[2018-04-16] MEDS: LASIX IV SCH (15:15)
--- NOTE | 2018-04-16 15:15 | Progress Note ---
Assessment and Plan Assessment and plan: - Patient Problems (1) Acute Systolic Congestive heart failure -Restart diuretics (2) Acute Respiratory Failure with Hypoxia -Continue oxygen (3) Diarrhea -Give imodium. Discussed with ID (4) Anemia due to GI blood loss Current Visit: Yes Status: Acute Plan to address problem: Patient anemia secondary to GI blood loss. She was on elOquis for DVT Recently discontinue elaquis and treat with low-dose aspirin for now. No further evidence of GI bleed hemoglobin and hematocrit remains intact. Tolerating tube feed (5) Chronic Metabolic encephalopathy Current Visit: No Status: Acute Plan to address problem: Multifactorial secondary to past acute CVA (6) Atrial fibrillation with RVR Current Visit: No Status: Acute Restart digoxin (7) Acute kidney injury with vaso motor nephropathy Current Visit: Yes Status: Acute (8) Severe sepsis SECONDARY TO UTI Current Visit: Yes Status: Acute Plan to address problem: Patient with severe sepsis now improving with IV antibiotics. Patient has decreased white blood cell count and improving renal insufficiency as well as afebrile. TU present medical management IV antibiotics. Urine culture was SHOWS CONTAMINATION. Will not need prolonged abx. Central access to be discontinued following urology eval and procedure. (9) Right sided Hydronephrosis: Urology consult. Discussed with Urologist and also with patient son. The high probability of a clinically significant, sudden or life threatening deterioration of the [CARDIAC, GI, RENAL] system(s) required my full and direct attention, intervention and personal management. The aggregate critical care time was [45] minutes. This time is in addition to time spent performing reported procedures but includes the following: [X] Data Review and interpretation [X] Patient assessment and monitoring of vital signs [X] Documentation [X] Medication orders and management History Interval history: Patient nonverbal currently not able to answer any questions. Patient was admitted due to acute GI blood loss anemia. Patient this am, noted to have increased wob, with tachycardia, remains non verbal as a result of prior CVA Hospitalist Physical - Physical exam Narrative exam: General appearance: Present: no acute distress, other nonverbal) - HEENT Eyes: Present: PERRL, EOM intact ENT: no hearing intact, no clear oral mucosa, no dentition normal - Neck Neck: Present: supple, normal ROM. Absent: rigidity, enlarged thyroid, masses or JVD, cervical LAD - Respiratory Respiratory: negative: crackles bilateral, increased work of breathing - Cardiovascular Rhythm: irregularly irregular-tachycardia Heart Sounds: Present: S1 & S2, gallop - Extremities Extremities: no ischemia, pulses intact, No edema, normal temperature, normal color, Full ROM, abnormal Extremity abnormal: edema Peripheral Pulses: within normal limits - Abdominal General gastrointestinal: soft, non-distended - Integumentary Integumentary: Present: clear - Psychiatric Psychiatric: other (nonverbal bedbound) - Neurologic Neurologic: focal deficits [place] - Constitutional Vitals: Temp Pulse Resp BP Pulse Ox 99.9 F H 128 H 20 121/69 95 04/16/18 13:30 04/16/18 13:33 04/16/18 13:33 04/16/18 13:30 04/16/18 13:30 General appearance: Present: no acute distress, other (lethargic, nonverbal) Results - Labs CBC & Chem 7: 04/16/18 08:46 04/16/18 08:46 Labs: Laboratory Last Values WBC 10.2 K/mm3 (4.5-11.0) 04/16/18 08:46 RBC 2.69 M/mm3 (3.65-5.03) L 04/16/18 08:46 Hgb 7.9 gm/dl (10.1-14.3) L 04/16/18 08:46 Hct 24.2 % (30.3-42.9) L 04/16/18 08:46 MCV 90 fl (79-97) 04/16/18 08:46 MCH 30 pg (28-32) 04/16/18 08:46 MCHC 33 % (30-34) 04/16/18 08:46 RDW 16.9 % (13.2-15.2) H 04/16/18 08:46 Plt Count 208 K/mm3 (140-440) 04/16/18 08:46 Lymph % (Auto) 9.6 % (13.4-35.0) L 04/15/18 06:00 [place] % (Auto) 6.4 % (0.0-7.3) 04/15/18 06:00 Eos % (Auto) 1.3 % (0.0-4.3) 04/15/18 06:00 Baso % (Auto) 0.1 % (0.0-1.8) 04/15/18 06:00 Lymph # 1.0 K/mm3 (1.2-5.4) L 04/15/18 06:00 [place] # 0.7 K/mm3 (0.0-0.8) 04/15/18 06:00 Eos # 0.1 K/mm3 (0.0-0.4) 04/15/18 06:00 Baso # 0.0 K/mm3 (0.0-0.1) 04/15/18 06:00 Add Manual Diff Complete 04/09/18 00:27 Total Counted 100 04/09/18 00:27 Seg Neutrophils % 82.6 % (40.0-70.0) H 04/15/18 06:00 Seg Neuts % (Manual) 89.0 % (40.0-70.0) H 04/09/18 00:27 Band Neutrophils % 6.0 % 04/09/18 00:27 Lymphocytes % (Manual) 5.0 % (13.4-35.0) L 04/09/18 00:27 Reactive Lymphs % (Man) 0 % 04/09/18 00:27 Monocytes % (Manual) 0 % (0.0-7.3) 04/09/18 00:27 Eosinophils % (Manual) 0 % (0.0-4.3) 04/09/18 00:27 Basophils % (Manual) 0 % (0.0-1.8) 04/09/18 00:27 Metamyelocytes % 0 % 04/09/18 00:27 Myelocytes % 0 % 04/09/18 00:27 Promyelocytes % 0 % 04/09/18 00:27 Blast Cells % 0 % 04/09/18 00:27 Nucleated RBC % Not Reportable 04/09/18 00:27 Seg Neutrophils # 8.4 K/mm3 (1.8-7.7) H 04/15/18 06:00 Seg Neutrophils # Man 12.9 K/mm3 (1.8-7.7) H 04/09/18 00:27 Band Neutrophils # 0.9 K/mm3 04/09/18 00:27 Lymphocytes # (Manual) 0.7 K/mm3 (1.2-5.4) L 04/09/18 00:27 Abs React Lymphs (Man) 0.0 K/mm3 04/09/18 00:27 Monocytes # (Manual) 0.0 K/mm3 (0.0-0.8) 04/09/18 00:27 Eosinophils # (Manual) 0.0 K/mm3 (0.0-0.4) 04/09/18 00:27 Basophils # (Manual) 0.0 K/mm3 (0.0-0.1) 04/09/18 00:27 Metamyelocytes # 0.0 K/mm3 04/09/18 00:27 Myelocytes # 0.0 K/mm3 04/09/18 00:27 Promyelocytes # 0.0 K/mm3 04/09/18 00:27 Blast Cells # 0.0 K/mm3 04/09/18 00:27 WBC Morphology Not Reportable 04/09/18 00:27 Hypersegmented Neuts Not Reportable 04/09/18 00:27 Hyposegmented Neuts Not Reportable 04/09/18 00:27 Hypogranular Neuts Not Reportable 04/09/18 00:27 Smudge Cells Not Reportable 04/09/18 00:27 Toxic Granulation Not Reportable 04/09/18 00:27 Toxic Vacuolation Not Reportable 04/09/18 00:27 Dohle Bodies Not Reportable 04/09/18 00:27 Pelger-Huet Anomaly Not Reportable 04/09/18 00:27 Rene Rods Not Reportable 04/09/18 00:27 Platelet Estimate Consistent w auto 04/09/18 00:27 Clumped Platelets Not Reportable 04/09/18 00:27 Plt Clumps, EDTA Not Reportable 04/09/18 00:27 Large Platelets Not Reportable 04/09/18 00:27 Giant Platelets Not Reportable 04/09/18 00:27 Platelet Satelliting Not Reportable 04/09/18 00:27 Plt Morphology Comment Not Reportable 04/09/18 00:27 RBC Morphology Not Reportable 04/09/18 00:27 Dimorphic RBCs Not Reportable 04/09/18 00:27 Polychromasia Not Reportable 04/09/18 00:27 Hypochromasia 1+ 04/09/18 00:27 Poikilocytosis Not Reportable 04/09/18 00:27 Anisocytosis 1+ 04/09/18 00:27 Microcytosis Not Reportable 04/09/18 00:27 Macrocytosis Not Reportable 04/09/18 00:27 Spherocytes Not Reportable 04/09/18 00:27 Pappenheimer Bodies Not Reportable 04/09/18 00:27 Sickle Cells Not Reportable 04/09/18 00:27 Target Cells Not Reportable 04/09/18 00:27 Tear Drop Cells Not Reportable 04/09/18 00:27 Ovalocytes Not Reportable 04/09/18 00:27 Helmet Cells Not Reportable 04/09/18 00:27 Maldonado-Sigel Bodies Not Reportable 04/09/18 00:27 [place] Rings Not Reportable 04/09/18 00:27 Ric Cells Not Reportable 04/09/18 00:27 Bite Cells Not Reportable 04/09/18 00:27 Crenated Cell Not Reportable 04/09/18 00:27 Elliptocytes Not Reportable 04/09/18 00:27 Acanthocytes (Spur) Not Reportable 04/09/18 00:27 Rouleaux Not Reportable 04/09/18 00:27 Hemoglobin C Crystals Not Reportable 04/09/18 00:27 Schistocytes Not Reportable 04/09/18 00:27 Malaria parasites Not Reportable 04/09/18 00:27 Ajay Bodies Not Reportable 04/09/18 00:27 Hem Pathologist Commnt No 04/09/18 00:27 POC ABG pH 7.466 (7.35-7.45) H 04/09/18 12:42 POC ABG pCO2 24.6 (35-45) L 04/09/18 12:42 POC ABG pO2 120 (80-105) H 04/09/18 12:42 POC ABG HCO3 17.7 04/09/18 12:42 POC ABG Total CO2 18 04/09/18 12:42 POC ABG O2 Sat 99 04/09/18 12:42 POC ABG Base Excess -6 04/09/18 12:42 FiO2 28 % 04/09/18 12:42 Sodium 144 mmol/L (137-145) 04/16/18 08:46 Potassium 3.9 mmol/L (3.6-5.0) 04/16/18 08:46 Chloride 108.0 mmol/L (98-107) H 04/16/18 08:46 Carbon Dioxide 26 mmol/L (22-30) 04/16/18 08:46 Anion Gap 14 mmol/L 04/16/18 08:46 BUN 12 mg/dL (7-17) 04/16/18 08:46 Creatinine 0.5 mg/dL (0.7-1.2) L 04/16/18 08:46 Estimated GFR > 60 ml/min 04/16/18 08:46 BUN/Creatinine Ratio 24 % 04/16/18 08:46 Glucose 149 mg/dL (65-100) H 04/16/18 08:46 POC Glucose 178 (70-105) H 04/16/18 11:41 Lactic Acid 1.60 mmol/L (0.7-2.0) 04/08/18 23:30 Calcium 7.7 mg/dL (8.4-10.2) L 04/16/18 08:46 Ionized Calcium 4.5 mg/dL (4.8-5.6) L 04/11/18 05:19 Phosphorus 1.70 mg/dL (2.5-4.5) L D 04/14/18 05:30 Magnesium 2.60 mg/dL (1.7-2.3) H 04/09/18 16:50 Total Bilirubin 0.30 mg/dL (0.1-1.2) 04/08/18 02:50 AST 74 units/L (5-40) H 04/08/18 02:50 ALT 96 units/L (7-56) H 04/08/18 02:50 Alkaline Phosphatase 70 units/L (35-129) 04/08/18 02:50 Total Creatine Kinase 1194 units/L (30-135) H 04/08/18 12:46 CK-MB (CK-2) 5.1 ng/mL (0.0-4.0) H 04/08/18 12:46 CK-MB (CK-2) Rel Index 0.4 (0-4) 04/08/18 12:46 Troponin T 0.018 ng/mL (0.00-0.029) 04/08/18 12:46 Serum Total Protein 4.8 g/dL (6.1-8.1) L 04/10/18 09:06 Total Protein 6.2 g/dL (6.3-8.2) L 04/08/18 02:50 Albumin 1.8 g/dL (3.8-4.8) L 04/10/18 09:06 Albumin/Globulin Ratio 0.8 % 04/08/18 02:50 Qyool-0-Kpezyxlzx 0.4 g/dL (0.2-0.3) H 04/10/18 09:06 Rmzhp-6-Evtokrxvx 0.9 g/dL (0.5-0.9) 04/10/18 09:06 Beta Globulins 0.4 g/dL (0.2-0.5) 04/10/18 09:06 Gamma Globulins 1.0 g/dL (0.8-1.7) 04/10/18 09:06 Abnorm Protein Band 1 see below 04/10/18 09:06 PEP Interpretation see below H 04/10/18 09:06 Triglycerides 247 mg/dL (2-149) H 04/08/18 02:50 Cholesterol 116 mg/dL (50-199) 04/08/18 02:50 LDL Cholesterol Direct 55 mg/dL (50-130) 04/08/18 02:50 HDL Cholesterol 36 mg/dL (40-59) L 04/08/18 02:50 Cholesterol/HDL Ratio 3.22 % 04/08/18 02:50 TSH 0.753 mlU/mL (0.270-4.200) 04/09/18 16:50 Free T4 1.13 ng/dL (0.76-1.46) 04/09/18 16:50 PTH Intact 169.6 pg/mL (15-65) H 04/11/18 05:19 Urine Color Yellow (Yellow) 04/08/18 02:57 Urine Turbidity Turbid (Clear) 04/08/18 02:57 Urine pH 6.0 (5.0-7.0) 04/08/18 02:57 Ur Specific [place] 1.014 (1.003-1.030) 04/08/18 02:57 Urine Protein 100 mg/dl mg/dL (Negative) 04/08/18 02:57 Urine Glucose (UA) Neg mg/dL (Negative) 04/08/18 02:57 Urine Ketones Tr mg/dL (Negative) 04/08/18 02:57 Urine Blood Sm (Negative) 04/08/18 02:57 Urine Nitrite Neg (Negative) 04/08/18 02:57 Urine Bilirubin Neg (Negative) 04/08/18 02:57 Urine Urobilinogen 2.0 mg/dL (<2.0) 04/08/18 02:57 Ur Leukocyte Esterase Mod (Negative) 04/08/18 02:57 Urine WBC (Auto) > 182.0 /HPF (0.0-6.0) H 04/08/18 02:57 Urine RBC (Auto) 23.0 /HPF (0.0-6.0) 04/08/18 02:57 Urine Bacteria (Auto) 4+ /HPF (Negative) 04/08/18 02:57 Calcium Oxalate Crystal 2+ 04/08/18 02:57 Amorphous Crystals 2+ 04/08/18 02:57 Urine Creatinine 24.0 mg/dL (0.1-20.0) H 04/08/18 15:18 Protein/Creatinin Ratio 2.38 04/08/18 15:18 Urine Sodium 60 mmol/L 04/08/18 15:43 Urine Total Protein 57 mg/dL (5-11.8) H 04/08/18 15:18 Digoxin 1.1 ng/mL (0.9-2.0) 04/09/18 01:23 Group A Strep Rapid Negative (Negative) 04/08/18 00:35 Blood Type O POSITIVE 04/11/18 05:19 Antibody Screen Negative 04/11/18 05:19 Crossmatch See Detail 04/11/18 05:19 Nutrition/Malnutrition Assess - Dietary Evaluation Nutrition/Malnutrition Findings: Nutrition Notes Start: 04/09/18 16:11 Freq: Status: Active Protocol: Document 04/14/18 12:23 [facility] (Rec: 04/14/18 12:24 [facility] [id number]) Nutrition Notes Initial or Follow up Brief Note Current Diet TF - Glucerna 1.2 at 50ml/hr Subjective/Other Information Observed TF infusing at goal rate. Nutrition Intervention Follow-Up By: 04/17/18 Additional Comments F/U: stable TF, wt
[2018-04-16] MEDS: LANOXIN PO SCH (18:22)
[2018-04-16] MEDS: REGLAN PO SCH ×2 (21:12→23:39)
[2018-04-16] MEDS: LOPRESSOR PO SCH (21:13)
[2018-04-16] MEDS: PRAVACHOL PO SCH (21:14)
[2018-04-17] MEDS: HumaLOG SUB-Q SCH ×3 (00:33→12:54)
--- NOTE | 2018-04-17 06:13 | Event Note ---
Date: 04/17/18 nuc scan of kidneys rt kidney - 3% function left 97% function recommend no intervention of non function rt kidney will sign off
[2018-04-17 06:29] LABS: Hematocrit 26.9 % (30.3-42.9); Hemoglobin 8.6 gm/dl (10.1-14.3); Mean Corpuscular HGB Conc 32 % (30-34); Mean Corpuscular Volume 90 fl (79-97); Red Blood Count 2.98 M/mm3 (3.65-5.03); Red Cell Distribution Width 17.4 % (13.2-15.2)
[2018-04-17 06:32] LABS: Platelet Count 171 K/mm3 (140-440)
[2018-04-17 06:47] LABS: BUN/Creatinine Ratio 25; Blood Urea Nitrogen 15 mg/dL (7-17); Calcium 7.5 mg/dL (8.4-10.2); Hemolysis Index 82
[2018-04-17] MEDS: REGLAN PO SCH ×2 (07:02→12:54)
[2018-04-17] MEDS: SYNTHROID PO SCH (07:02)
[2018-04-17] MEDS: MAXIPIME/NS 1 GM/100 ML 1 GM/100 ML BAG IV SCH ×2 (07:03→13:38)
[2018-04-17] MEDS: DUONEB *Not for PRN Use IH SCH (07:44)
[2018-04-17] MEDS: BICITRA PO SCH ×2 (08:25→08:29)
[2018-04-17] MEDS: OSCAL PO SCH ×2 (08:25→13:16)
[2018-04-17] MEDS: PROAMATINE PO SCH ×2 (08:25→12:54)
[2018-04-17] MEDS: LOPRESSOR PO SCH ×2 (08:26→13:16)
--- NOTE | 2018-04-17 08:45 | Progress Note ---
Assessment and Plan Cultures: 04/08/2018 blood cultures: 1 out of 4 bottles positive for CoNS 04/08/2018 urine culture: 10-100K mixed bacteria 04/08/2018 GAS neg 04/10/2018 Stool culture neg, [place] ag neg, Cryptosporidium ag neg A/P: 87-year-old female with prior CVA, right-sided hemiplegia, aphasia, CHF, diabetes mellitus, vascular dementia who is a longterm resident, admitted with: #1 Septic shock: Improved, Source is likely urine. UA with significant pyuria. Chest x-ray not concerning for an obvious pneumonia. Renal ultrasound reveals chronic longstanding marked hydronephrosis of the right kidney, no stones or pylonephritis.Renal nuclear scan pending- Urology following #2 Urinary tract infection: urine culture 10-100K mixed bacteria, still thick sediment and significant pyuria Renal Nuclear scan shows normal function of the left kidney. Severe obstruction in the right kidney with little, if any, function. Split function measures 97% left kidney and 3% right kidney. Urology recommends no intervention of non functioning right kidney #3 Acute on chronic encephalopathy: Likely metabolic and septic in etiology. #4 Acute kidney injury: resolved. #5 CoNS bacteremia: One out of 4 bottles positive for CoNS, likely contaminant. No further work up needed. #6. Diarrhea: likely combination of tube feeds and antibiotics. Monitor for no w. OK to consider imodium trial Recs: Completed antibiotic regimen, does not require outpatient treatment therapy Ok to discharge from ID standpoint [facility] M: [phone] O:[phone] Subjective Date of service: 04/17/18 Principal diagnosis: Severe sepsis with shock; UTI; ITZEL; Hypernatremia Interval history: Patient seen and examined. Nonverbal at baseline. No acute distress per bedside nurse. Son at bedside. Nurse notes, labs and reports reviewed, discussed with son. Objective - Exam Narrative Exam: Constitutional: Somnolent in NAD on NC O2, non verbal Head, Ears, Nose, oral: Normocephalic, atraumatic. External ears, nose normal, OP clear Eyes: Conjunctivae/corneas clear. No icterus. No ptosis. Neck: Supple, no meningeal signs Cardiovascular: RRR Respiratory: Good air entry, clear to auscultation bilaterally GI: Soft, non-tender; bowel sounds normal. No peritoneal signs, +rectal tube, +G-tube Cloudy with minimal sedimentation Musculoskeletal: No pedal edema, no cyanosis. Skin: No rash or abscess Hem/Lymphatic: No palpable cervical or supraclavicular nodes. No lymphangitis Psych: somnolent Neurological: somnolent, non verbal. - Constitutional Vitals: Vital Signs Temp Pulse Resp BP Pulse Ox 98.0 F 115 H 21 109/66 100 04/17/18 07:14 04/17/18 07:14 04/17/18 07:14 04/17/18 07:14 04/17/18 07:14 Temperature -Last 24 Hours Temperature 98.0 F Temperature 98.4 F Temperature 97.6 F Temperature 97.8 F Temperature 99.9 F Temperature 100.0 F - Labs CBC & Chem 7: 04/17/18 06:00 04/17/18 06:00 Labs: Abnormal lab results 04/16/18 04/16/18 04/16/18 Range/Units 08:46 08:46 11:41 RBC 2.69 L (3.65-5.03) M/mm3 Hgb 7.9 L (10.1-14.3) gm/dl Hct 24.2 L (30.3-42.9) % RDW 16.9 H (13.2-15.2) % Chloride 108.0 H (98-107) mmol/L Carbon Dioxide (22-30) mmol/L Creatinine 0.5 L (0.7-1.2) mg/dL Glucose 149 H (65-100) mg/dL POC Glucose 178 H (70-105) Calcium 7.7 L (8.4-10.2) mg/dL 04/16/18 04/17/18 04/17/18 Range/Units 18:21 00:03 05:10 RBC (3.65-5.03) M/mm3 Hgb (10.1-14.3) gm/dl Hct (30.3-42.9) % RDW (13.2-15.2) % Chloride (98-107) mmol/L Carbon Dioxide (22-30) mmol/L Creatinine (0.7-1.2) mg/dL Glucose (65-100) mg/dL POC Glucose 165 H 192 H 151 H (70-105) Calcium (8.4-10.2) mg/dL 04/17/18 04/17/18 Range/Units 06:00 06:00 RBC 2.98 L (3.65-5.03) M/mm3 Hgb 8.6 L (10.1-14.3) gm/dl Hct 26.9 L (30.3-42.9) % RDW 17.4 H (13.2-15.2) % Chloride (98-107) mmol/L Carbon Dioxide 31 H (22-30) mmol/L Creatinine 0.6 L (0.7-1.2) mg/dL Glucose 127 H (65-100) mg/dL POC Glucose (70-105) Calcium 7.5 L (8.4-10.2) mg/dL
[2018-04-17] MEDS: LANOXIN PO SCH (09:45)
[2018-04-17] MEDS: LASIX IV SCH (09:45)
[2018-04-17] MEDS: FEOSOL PO SCH (09:46)
[2018-04-17] MEDS: ARICEPT PO SCH (09:46)
[2018-04-17] MEDS: PREVACID SOLUTAB FEEDTUBE SCH (09:53)
[2018-04-17] MEDS ORDERED: POTASSIUM CHLORIDE PO SCH (10:00)
[2018-04-17] MEDS ORDERED: ZESTRIL PO SCH (10:00)
[2018-04-17] MEDS: HEPARIN SUB-Q SCH (10:04)
[2018-04-17 14:12] VITALS: BP 137/82
== END 2018-04-17 18:17 | DRG 871 ==
LOC: ED 01:09 → CC1 04:44 → 2B-ACE 04-14 20:06
PROVIDERS: ADMIT Internal Medicine; ATTEND Internal Medicine
PROC: 4A033R1 Measurement of Arterial Saturation, Peripheral, Percutaneous Approach (ICD-10-PCS; 2018-04-09)
PROC: 30233N1 Transfusion of Nonautologous Red Blood Cells into Peripheral Vein, Percutaneous Approach (ICD-10-PCS; 2018-04-11)
PROC: 02H633Z Insertion of Infusion Device into Right Atrium, Percutaneous Approach (ICD-10-PCS; principal; 2018-04-12)
PROC: B244ZZZ Ultrasonography of Right Heart (ICD-10-PCS; 2018-04-12)
PROC: B2141ZZ Fluoroscopy of Right Heart using Low Osmolar Contrast (ICD-10-PCS; 2018-04-12)
PROC: 0DB68ZX Excision of Stomach, Via Natural or Artificial Opening Endoscopic, Diagnostic (ICD-10-PCS; 2018-04-12)
DX: A41.02 Sepsis due to Methicillin resistant Staphylococcus aureus (principal); N17.0 Acute kidney failure with tubular necrosis; I21.A1 Myocardial infarction type 2; I50.21 Acute systolic (congestive) heart failure; J96.01 Acute respiratory failure with hypoxia; R65.21 Severe sepsis with septic shock; G93.41 Metabolic encephalopathy; K29.71 Gastritis, unspecified, with bleeding; K29.81 Duodenitis with bleeding; D62 Acute posthemorrhagic anemia; E87.0 Hyperosmolality and hypernatremia; N30.00 Acute cystitis without hematuria; I42.9 Cardiomyopathy, unspecified; I69.951 Hemiplegia and hemiparesis following unspecified cerebrovascular disease affecting right dominant side; N13.6 Pyonephrosis; E86.0 Dehydration; E87.6 Hypokalemia; F01.50 Vascular dementia, unspecified severity, without behavioral disturbance, psychotic disturbance, mood disturbance, and anxiety; I11.0 Hypertensive heart disease with heart failure; I48.2 Chronic atrial fibrillation; E11.65 Type 2 diabetes mellitus with hyperglycemia; R13.12 Dysphagia, oropharyngeal phase; D63.8 Anemia in other chronic diseases classified elsewhere; E78.5 Hyperlipidemia, unspecified; E83.51 Hypocalcemia; E83.39 Other disorders of phosphorus metabolism; I48.0 Paroxysmal atrial fibrillation; Z79.01 Long term (current) use of anticoagulants
CPT/HCPCS: 36415; 36558; 36600; 71045; 76770; 76937; 77001; 78708; 80048; 80053; 80061; 80162; 81001; 82140; 82330; 82550; 82553; 82570; 82803; 82962; 83735; 83970; 84100; 84156; 84165; 84300; 84439; 84443; 84484; 85007; 85025; 85027; 86850; 86900; 86901; 86920; 87040; 87045; 87086; 87116; 87177; 87430; 93005; 93010; 93306; 94640; 94760; G0378; A6250; A9270-GY; A9562; C1751; J0610; J0690; J0692; J1644; J1815; J1940; J1956; J2543; J2704; J3480; J7030; J7040; J7050; J7070; J7120; P9016

== ENCOUNTER 2018-05-06 07:54 | Inpatient (IN) | payer MEDICARE ==
[2018-05-06] MEDS ORDERED: NACL 0.9% 500 ML 500 ML IV ONE (08:11)
[2018-05-06 08:44] LABS: Basophils % (Auto) 0.2 % (0.0-1.8); Lymphocytes % (Auto) 10.7 % (13.4-35.0); Mean Corpuscular HGB Conc 30 % (30-34); Mean Corpuscular Volume 96 fl (79-97); Monocytes % (Auto) 5.2 % (0.0-7.3); Platelet Count 492 K/mm3 (140-440); Red Blood Count 3.75 M/mm3 (3.65-5.03); Red Cell Distribution Width 19.2 % (13.2-15.2)
[2018-05-06 08:45] LABS: Hematocrit 35.8 % (30.3-42.9); Hemoglobin 10.8 gm/dl (10.1-14.3)
--- NOTE | 2018-05-06 08:46 | XRay Report ---
AP CHEST :05/06/18 08:23 CLINICAL: Tachypnea and rales. COMPARISON:04/16/18 FINDINGS: Stable cardiomegaly. The pulmonary vessels have decreased in size and are now normal.New patchy opacities in the right lung base. The lungs are otherwise clear. No tubes or lines. IMPRESSION: Interval improvement in CHF but new patchy opacities in the right lung base are suspicious for pneumonia.
[2018-05-06 08:56] LABS: Calcium 8.5 mg/dL (8.4-10.2)
[2018-05-06] MEDS ORDERED: NACL 0.9% 1000 ML 1,000 ML IV ONE ×2 (09:16→19:44)
[2018-05-06] MEDS ORDERED: KIONEX PR ONE (09:17)
[2018-05-06] MEDS ORDERED: HumuLIN R IV ONE (09:18)
[2018-05-06] MEDS ORDERED: D50W (25GM) Syringe IV ONE ×2 (09:18→12:16)
--- NOTE | 2018-05-06 09:38 | Emergency Department Report ---
ED General Adult HPI - General Chief complaint: Dyspnea/Respdistress Stated complaint: SOB/TANNER Time Seen by Provider: 05/06/18 08:11 Source: EMS Mode of arrival: Stretcher Limitations: Altered Mental Status - History of Present Illness Initial comments: Patient presents to the ED via EMS from a local half-way for difficulty in breathing and elevated temperature. The patient has severe dementia and is not able to communicate with us. The patient is in mild respiratory distress upon arrival. -: Sudden Severity scale (0 -10): 0 Quality: other (unknown) Consistency: other (unknown) Improves with: none Worsens with: none Associated Symptoms: shortness of breath - Related Data Home Medications Medication Instructions Recorded Confirmed Last Taken Docusate Sodium [Colace CAP] 100 mg PO BID PRN 06/18/16 04/08/18 04/07/18 Acetaminophen [Tylenol] 325 mg PO PRN 04/08/18 04/08/18 04/07/18 Digoxin [Lanoxin] 0.125 mg PO DAILY 04/08/18 04/08/18 04/07/18 Lisinopril [Prinivil] 5 mg PO DAILY 04/08/18 04/08/18 04/07/18 Metoclopramide HCl 5 mg PO Q6HR 04/08/18 04/08/18 04/07/18 Metoprolol Tartrate 25 mg PO TID 04/08/18 04/08/18 04/07/18 Potassium Chloride [Klor-Con] 20 meq PO DAILY 04/08/18 04/08/18 04/07/18 Simvastatin 40 mg PO DAILY 04/08/18 04/08/18 04/07/18 Torsemide [Demadex] 20 mg PO DAILY 04/08/18 04/08/18 04/07/18 Previous Rx's Medication Instructions Recorded Last Taken Type Levothyroxine [Synthroid] 75 mcg PO DAILY@0600 #30 tablet 08/12/16 04/07/18 Rx Simvastatin (Nf) [Zocor TAB] 40 mg PO QHS #30 tablet 08/12/16 04/07/18 Rx Calcium Carbonate [Oscal] 1,250 mg PO TID #90 tablet 04/17/18 Unknown Rx Donepezil [Aricept] 5 mg PO QDAY tablet 04/17/18 Unknown Rx Ferrous Sulfate [Feosol 325 MG tab] 325 mg PO QDAY tablet 04/17/18 Unknown Rx Insulin Regular, Human [HumuLIN R] 0 unit SQ AC #1 vial 04/17/18 Unknown Rx Ipratropium/Albuterol Sulfate 1 ampul IH BIDRT ampul.neb 04/17/18 Unknown Rx [DUONEB *Not for PRN Use*] Lansoprazole Solutab [Prevacid 30 mg FEEDTUBE QDAY tab.rapdis 04/17/18 Unknown Rx Solutab] Lipase/Protease/Amylase [Pancreaze 1 each FEEDTUBE PRN PRN capsule 04/17/18 Unknown Rx 10,500 Unit] Loperamide [Imodium] 2 mg PO Q2H PRN capsule 04/17/18 Unknown Rx Midodrine [Proamatine] 5 mg PO TID@0800,1200,1600 #90 04/17/18 Unknown Rx tablet Allergies Allergy/AdvReac Type Severity Reaction Status Date / Time No Known Allergies Allergy Verified 04/08/18 02:43 ED Review of Systems ROS: Stated complaint: SOB/TANNER Other details as noted in HPI Comment: Unobtainable due to pts medical conditions (and prior history of dementia) ED Past Medical Hx - Past Medical History Hx Hypertension: Yes Hx CVA: Yes Hx Congestive Heart Failure: Yes Hx Deep Vein Thrombosis: No Hx Kidney Stones: Yes Additional medical history: afib - Surgical History Hx Pacemaker: No Hx Internal Defibrillator: No Additional Surgical History: unable to assess - Social History Smoking Status: Unknown if ever smoked - Medications Home Medications: Home Medications Medication Instructions Recorded Confirmed Last Taken Type Docusate Sodium [Colace CAP] 100 mg PO BID PRN 06/18/16 04/08/18 04/07/18 History Levothyroxine [Synthroid] 75 mcg PO DAILY@0600 #30 tablet 08/12/16 04/08/18 04/07/18 Rx Simvastatin (Nf) [Zocor TAB] 40 mg PO QHS #30 tablet 08/12/16 04/08/18 04/07/18 Rx Acetaminophen [Tylenol] 325 mg PO PRN 04/08/18 04/08/18 04/07/18 History Digoxin [Lanoxin] 0.125 mg PO DAILY 04/08/18 04/08/18 04/07/18 History Lisinopril [Prinivil] 5 mg PO DAILY 04/08/18 04/08/18 04/07/18 History Metoclopramide HCl 5 mg PO Q6HR 04/08/18 04/08/18 04/07/18 History Metoprolol Tartrate 25 mg PO TID 04/08/18 04/08/18 04/07/18 History Potassium Chloride [Klor-Con] 20 meq PO DAILY 04/08/18 04/08/18 04/07/18 History Simvastatin 40 mg PO DAILY 04/08/18 04/08/18 04/07/18 History Torsemide [Demadex] 20 mg PO DAILY 04/08/18 04/08/18 04/07/18 History Calcium Carbonate [Oscal] 1,250 mg PO TID #90 tablet 04/17/18 Unknown Rx Donepezil [Aricept] 5 mg PO QDAY tablet 04/17/18 Unknown Rx Ferrous Sulfate [Feosol 325 MG tab] 325 mg PO QDAY tablet 04/17/18 Unknown Rx Insulin Regular, Human [HumuLIN R] 0 unit SQ AC #1 vial 04/17/18 Unknown Rx Ipratropium/Albuterol Sulfate 1 ampul IH BIDRT ampul.neb 04/17/18 Unknown Rx [DUONEB *Not for PRN Use*] Lansoprazole Solutab [Prevacid 30 mg FEEDTUBE QDAY tab.rapdis 04/17/18 Unknown Rx Solutab] Lipase/Protease/Amylase [Pancreaze 1 each FEEDTUBE PRN PRN capsule 04/17/[address] 10,500 Unit] Loperamide [Imodium] 2 mg PO Q2H PRN capsule 04/17/18 Unknown Rx Midodrine [Proamatine] 5 mg PO TID@0800,1200,1600 #90 04/17/18 Unknown Rx tablet ED Physical Exam - General Limitations: Altered Mental Status General appearance: in distress, other (patient is mild distress; dementia but alert) - Head Head exam: Present: atraumatic, normocephalic - Eye Eye exam: Present: normal appearance, PERRL, EOMI - ENT ENT exam: Present: mucous membranes moist - Neck Neck exam: Present: normal inspection - Respiratory Respiratory exam: Present: normal lung sounds bilaterally, rales. Absent: respiratory distress, wheezes - Cardiovascular Cardiovascular Exam: Present: normal rhythm, tachycardia. Absent: systolic murmur, diastolic murmur, rubs, gallop - GI/Abdominal GI/Abdominal exam: Present: soft, normal bowel sounds, other (feeding tube present). Absent: distended, tenderness - Rectal Rectal exam: Present: other (decubitus ulcer either late stage II early stage III in nature) - Extremities Exam Extremities exam: Present: normal inspection - Back Exam Back exam: Present: normal inspection - Neurological Exam Neurological exam: Present: other (not able to assess due to patient's condition) - Psychiatric Psychiatric exam: Present: other (not able to assess due to the patient's condition) - Skin Skin exam: Present: warm, dry, intact, normal color. Absent: rash ED Course Vital Signs 05/06/18 05/06/18 05/06/18 08:02 08:10 08:13 Temperature 100.4 F H Pulse Rate 137 H Respiratory 58 H Rate Blood Pressure O2 Sat by Pulse 99 98 Oximetry 05/06/18 05/06/18 05/06/18 08:20 08:30 08:40 Temperature Pulse Rate 143 H 140 H 127 H Respiratory 56 H 52 H 55 H Rate Blood Pressure 88/65 O2 Sat by Pulse 97 97 98 Oximetry 05/06/18 08:53 Temperature Pulse Rate Respiratory 38 H Rate Blood Pressure O2 Sat by Pulse 100 Oximetry ED Medical Decision Making - Lab Data Result diagrams: 05/06/18 08:25 05/06/18 08:25 Lab Results 05/06/18 05/06/18 05/06/18 Range/Units 08:25 08:25 08:25 WBC 18.6 H (4.5-11.0) K/mm3 RBC 3.75 (3.65-5.03) M/mm3 Hgb 10.8 (10.1-14.3) gm/dl Hct 35.8 (30.3-42.9) % MCV 96 (79-97) fl MCH 29 (28-32) pg MCHC 30 (30-34) % RDW 19.2 H (13.2-15.2) % Plt Count 492 H (140-440) K/mm3 Lymph % (Auto) 10.7 L (13.4-35.0) % [place] % (Auto) 5.2 (0.0-7.3) % Eos % (Auto) 0.0 (0.0-4.3) % Baso % (Auto) 0.2 (0.0-1.8) % Lymph # 2.0 (1.2-5.4) K/mm3 [place] # 1.0 H (0.0-0.8) K/mm3 Eos # 0.0 (0.0-0.4) K/mm3 Baso # 0.0 (0.0-0.1) K/mm3 Seg Neutrophils % 83.9 H (40.0-70.0) % Seg Neutrophils # 15.6 H (1.8-7.7) K/mm3 APTT (24.2-36.6) Sec. Sodium 145 (137-145) mmol/L Potassium 6.3 H* (3.6-5.0) mmol/L Chloride 104.0 (98-107) mmol/L Carbon Dioxide 23 (22-30) mmol/L Anion Gap 24 mmol/L BUN 60 H (7-17) mg/dL Creatinine 1.2 (0.7-1.2) mg/dL Estimated GFR 42 ml/min BUN/Creatinine Ratio 50 % Glucose 291 H (65-100) mg/dL Lactic Acid 6.10 H* (0.7-2.0) mmol/L Calcium 8.5 (8.4-10.2) mg/dL Total Bilirubin 0.30 (0.1-1.2) mg/dL AST 42 H (5-40) units/L ALT 34 (7-56) units/L Alkaline Phosphatase 93 (35-129) units/L NT-Pro-B Natriuret Pep (0-900) pg/mL Total Protein 7.9 (6.3-8.2) g/dL Albumin 3.0 L (3.9-5) g/dL Albumin/Globulin Ratio 0.6 % 05/06/18 05/06/18 Range/Units 08:25 08:25 WBC (4.5-11.0) K/mm3 RBC (3.65-5.03) M/mm3 Hgb (10.1-14.3) gm/dl Hct (30.3-42.9) % MCV (79-97) fl MCH (28-32) pg MCHC (30-34) % RDW (13.2-15.2) % Plt Count (140-440) K/mm3 Lymph % (Auto) (13.4-35.0) % [place] % (Auto) (0.0-7.3) % Eos % (Auto) (0.0-4.3) % Baso % (Auto) (0.0-1.8) % Lymph # (1.2-5.4) K/mm3 [place] # (0.0-0.8) K/mm3 Eos # (0.0-0.4) K/mm3 Baso # (0.0-0.1) K/mm3 Seg Neutrophils % (40.0-70.0) % Seg Neutrophils # (1.8-7.7) K/mm3 APTT 27.6 (24.2-36.6) Sec. Sodium (137-145) mmol/L Potassium (3.6-5.0) mmol/L Chloride (98-107) mmol/L Carbon Dioxide (22-30) mmol/L Anion Gap mmol/L BUN (7-17) mg/dL Creatinine (0.7-1.2) mg/dL Estimated GFR ml/min BUN/Creatinine Ratio % Glucose (65-100) mg/dL Lactic Acid (0.7-2.0) mmol/L Calcium (8.4-10.2) mg/dL Total Bilirubin (0.1-1.2) mg/dL AST (5-40) units/L ALT (7-56) units/L Alkaline Phosphatase (35-129) units/L NT-Pro-B Natriuret Pep 4756 H (0-900) pg/mL Total Protein (6.3-8.2) g/dL Albumin (3.9-5) g/dL Albumin/Globulin Ratio % - Radiology Data Radiology results: report reviewed - Medical Decision Making Patient placed on BiPAP IV fluids and IV antibiotics started Hyperkalemia treated Elevated troponin likely secondary to the septicemia Critical Care Time: Yes Critical care time in (mins) excluding proc time.: 45 Critical care attestation.: If time is entered above; I have spent that time in minutes in the direct care of this critically ill patient, excluding procedure time. ED Disposition Clinical Impression: Respiratory failure, Sepsis, Hyperkalemia Disposition: OP ADMIT IP TO THIS HOSP Is pt being admited?: No Does the pt Need Aspirin: No Condition: Fair Referrals: JOSSY GREWAL MD [Primary Care Provider] - 3-5 Days
[2018-05-06] MEDS ORDERED: ASPIRIN PR ONE ×2 (09:56→12:46)
[2018-05-06] MEDS ORDERED: MAXIPIME/NS 2 GM/100 ML 2 GM/100 ML BAG IV SCH (10:00)
[2018-05-06] MEDS ORDERED: CALCIUM GLUCONATE 1,000 MG in NACL 0.9% 100 ML IV ONE (10:30)
[2018-05-06] MEDS ORDERED: PANCREAZE DR 10,500 UNIT FEEDTUBE PRN ×3 (10:54→15:24)
[2018-05-06] MEDS ORDERED: COLACE PO PRN (10:54)
--- NOTE | 2018-05-06 10:59 | History and Physical Report ---
History of Present Illness Date of examination: 05/06/18 Date of admission: 05/06/18 Chief complaint: SOB History of present illness: Patient presents to the ED via EMS from a local group home for difficulty in breathing and elevated temperature. The patient has severe dementia and is not able to communicate with us. The patient is in mild respiratory distress upon arrival, placed on BiPAP. Noted hypotensive with elevated white count and elevated lactic acid, K noted to be 6.3. She was placed on iv fluid, empiric abx, hyperkalemia protocol, called for admission for further evaluation and management. Past History Past Medical History: atrial fib, heart failure, hypertension, stroke Past Surgical History: No surgical history, Other (reviewed) Social history: single. denies: smoking, alcohol abuse, prescription drug abuse Family history: no significant family history, other (reviewed) ROS: Unobtainable, patient is severely demented Medications and Allergies Allergies Allergy/AdvReac Type Severity Reaction Status Date / Time No Known Allergies Allergy Verified 04/08/18 02:43 Home Medications Medication Instructions Recorded Confirmed Last Taken Type Docusate Sodium [Colace CAP] 100 mg PO BID PRN 06/18/16 05/06/18 04/07/18 History Levothyroxine [Synthroid] 75 mcg PO DAILY@0600 #30 tablet 08/12/16 05/06/1803/26 Rx Digoxin [Lanoxin] 0.125 mg PO DAILY 04/08/18 05/06/18 04/07/18 History Lisinopril [Prinivil] 5 mg PO DAILY 04/08/18 05/06/18 04/07/18 History Metoclopramide HCl 5 mg PO Q6HR 04/08/18 05/06/18 04/07/18 History Metoprolol Tartrate 25 mg PO DAILY 04/08/18 05/06/18 04/07/18 History Potassium Chloride [Klor-Con] 20 meq PO DAILY 04/08/18 05/06/18 04/07/18 History Simvastatin 40 mg PO DAILY 04/08/18 05/06/18 04/07/18 History Torsemide [Demadex] 20 mg PO DAILY 04/08/18 05/06/18 04/07/18 History Calcium Carbonate [Oscal] 1,250 mg PO TID #90 tablet 04/17/18 05/06/18 Unknown Rx Donepezil [Aricept] 5 mg PO QDAY tablet 04/17/18 05/06/18 Unknown Rx Ferrous Sulfate [Feosol 325 MG tab] 325 mg PO QDAY tablet 04/17/18 05/06/18 Unknown Rx Insulin Regular, Human [HumuLIN R] 0 unit SQ AC #1 vial 04/17/18 05/06/18 Unknown Rx Ipratropium/Albuterol Sulfate 1 ampul IH BIDRT ampul.neb 04/17/18 05/06/18 Unknown Rx [DUONEB *Not for PRN Use*] Lipase/Protease/Amylase [Pancreaze 1 each FEEDTUBE PRN PRN capsule 04/17/18 05/06/18 Unknown Rx 10,500 Unit] Loperamide [Imodium] 2 mg PO Q2H PRN capsule 04/17/18 05/06/18 Unknown Rx Midodrine [Proamatine] 5 mg PO TID@0800,1200,1600 #90 04/17/18 05/06/18 Unknown Rx tablet Aspirin [Adult Aspirin] 81 mg PO DAILY 05/06/18 05/06/18 Unknown History Active Meds: Active Medications Albuterol/Ipratropium (Duoneb *Not For Prn Use*) 1 ampul IH Q4H [facility] Lipase/Protease/Amylase (Pancreaze 10,500 Unit) 1 each FEEDTUBE PRN PRN PRN Reason: For Clogged Feeding Tube Docusate Sodium (Colace) 100 mg PO BID PRN PRN Reason: Constipation Donepezil HCl (Aricept) 5 mg PO QDAY [facility] Ferrous Sulfate (Feosol) 325 mg PO QDAY [facility] Cefepime HCl (Maxipime/Ns 2 Gm/100 Ml) 2 gm in 100 mls @ 200 mls/hr IV Q12HR [facility]; Protocol Calcium Gluconate 1,000 mg/ (Sodium Chloride) 110 mls @ 220 mls/hr IV ONCE ONE Stop: 05/06/18 10:59 Insulin Human Regular (Humulin R) 0 units SUB-Q AC [facility]; Protocol Lansoprazole (Prevacid Solutab) 30 mg FEEDTUBE QDAY [facility] Levothyroxine Sodium (Synthroid) 75 mcg PO DAILY@0600 [facility] Metoclopramide HCl (Reglan) 5 mg PO Q6HR [facility] Midodrine (Proamatine) 5 mg PO TID@0800,1200,1600 [facility] Miscellaneous Medication (Acetaminophen [Tylenol]) 325 mg PO PRN [facility] Miscellaneous Medication (Simvastatin) 40 mg PO QHS [facility] Exam - Physical Exam Narrative exam: General appearance: Present: mild distress, on BiPAP - EENT Eyes: Present: PERRL ENT: hearing intact, clear oral mucosa - Neck Neck: Present: supple, normal ROM - Respiratory Respiratory: bilateral: diminished - Cardiovascular Rhythm: irregularly irregular - Extremities Extremities: pulses symmetrical, No edema Peripheral Pulses: within normal limits - Abdominal General gastrointestinal: Present: soft, non-tender, non-distended, normal bowel sounds Female genitourinary: Present: normal - Integumentary Integumentary: Present: clear, dry, decreased turgor - Musculoskeletal Musculoskeletal: generalized weakness - Psychiatric Psychiatric: no intact judgment & insight, no memory intact - Neurologic Neurologic: right sided focal deficits, no gait normal - Constitutional Vitals: Temp Pulse Resp BP Pulse Ox 100.4 F H 132 H 25 H 115/56 100 05/06/18 08:13 05/06/18 10:24 05/06/18 10:24 05/06/18 10:24 05/06/18 10:24 Results - Labs CBC & Chem 7: 05/06/18 08:25 05/06/18 15:10 Labs: Abnormal lab results 05/06/18 05/06/18 05/06/18 Range/Units 08:25 08:25 08:25 WBC 18.6 H (4.5-11.0) K/mm3 RDW 19.2 H (13.2-15.2) % Plt Count 492 H (140-440) K/mm3 Lymph % (Auto) 10.7 L (13.4-35.0) % [place] # 1.0 H (0.0-0.8) K/mm3 Seg Neutrophils % 83.9 H (40.0-70.0) % Seg Neutrophils # 15.6 H (1.8-7.7) K/mm3 Potassium 6.3 H* (3.6-5.0) mmol/L BUN 60 H (7-17) mg/dL Glucose 291 H (65-100) mg/dL Lactic Acid 6.10 H* (0.7-2.0) mmol/L AST 42 H (5-40) units/L Troponin T (0.00-0.029) ng/mL NT-Pro-B Natriuret Pep (0-900) pg/mL Albumin 3.0 L (3.9-5) g/dL 05/06/18 Range/Units 08:25 WBC (4.5-11.0) K/mm3 RDW (13.2-15.2) % Plt Count (140-440) K/mm3 Lymph % (Auto) (13.4-35.0) % [place] # (0.0-0.8) K/mm3 Seg Neutrophils % (40.0-70.0) % Seg Neutrophils # (1.8-7.7) K/mm3 Potassium (3.6-5.0) mmol/L BUN (7-17) mg/dL Glucose (65-100) mg/dL Lactic Acid (0.7-2.0) mmol/L AST (5-40) units/L Troponin T 0.143 H* (0.00-0.029) ng/mL NT-Pro-B Natriuret Pep 4756 H (0-900) pg/mL Albumin (3.9-5) g/dL - Imaging and Cardiology Chest x-ray: report reviewed Assessment and Plan /Acute respiratory failure, likely from PNA could be from aspiration - due nebs, bipap, start iv abx, consult pulmonary /Severe sepsis - could be from PNA and UTI, also order blood cx, obtain UA - cont empiric abx for now /Right LL PNA - could be from aspiration? - cont abx for now /Septic shock - start on iv fluid, cont abx - on midrodine outpt, will resume - if BP does not improve may need to start pressor /Elevated troponin, chronically elevated - 2d echo a month ago showed preserved Ef, cont to trend, start aspirin and statin /Hyperkalemia - ordered insulin/D50/kayexalate/bicarbonate/calcium chloride /Severe dementia, supportive care, cont aricept /A. fib rate controlled off anticoagulation due to h/o GI bleed /History of CVA with residual right sided weakness and status post PEG placement PEG care, tube feeding per protocol, cont aspirin and statin /Anemia, with h/o GI bleed, monitor H/H /Hypertension; h/o, now hypotensive /Dyslipidemia, cont statin /Type 2 diabetes mellitus, Accu-Chek sliding scale coverage and TF diet and insulin as needed /Hypothyroidism; continue Synthroid closely monitor /DVT prophylaxis; lovenox /Code; full CODE STATUS Very poor prognosis, need discussion with the family patients condition,treatment plan The high probability of a clinically significant, sudden or life threatening deterioration of the [multiple] system(s) required my full and direct attention, intervention and personal management. The aggregate critical care time was [45] minutes. This time is in addition to time spent performing reported procedures but includes the following: [x] Data Review and interpretation [x] Patient assessment and monitoring of vital signs [x] Documentation [x] Medication orders and management
[2018-05-06 11:00] LABS: Bacteria,Urine 4+ /HPF (Negative); Bilirubin,Urine NEG (Negative); Blood,Urine MOD (Negative); Color,Urine Yellow (Yellow); Mucus,Urine 3+ /HPF; Urobilinogen,Urine < 2.0 mg/dL (<2.0)
[2018-05-06] MEDS ORDERED: NON-FORMULARY (Acetaminophen [Tylenol] 325 MG) PO SCH (11:00)
[2018-05-06] MEDS ORDERED: SIMPLE SYRUP FEEDTUBE PRN ×4 (11:00→15:24)
[2018-05-06] MEDS ORDERED: SODIUM BICARBONATE FEEDTUBE PRN ×2 (11:00→15:24)
[2018-05-06 11:01] LABS: WBC,Urine > 182.0 /HPF (0.0-6.0)
[2018-05-06] MEDS: HumuLIN R SUB-Q SCH ×2 (11:30→16:01)
[2018-05-06 11:36] LABS: Prealbumin 0.111 g/L (0.200-0.400)
[2018-05-06 11:44] LABS: Chol/HDL Ratio 3.87 %
[2018-05-06] MEDS ORDERED: D5NS 1,000 ML IV SCH (12:00)
[2018-05-06] MEDS: ZOSYN/NS 3.375GM/50ML 3.375 GM/50 ML BAG IV SCH ×2 (12:00→21:20)
[2018-05-06] MEDS ORDERED: KIONEX ONE (12:16)
[2018-05-06] MEDS ORDERED: HumuLIN R ONE ×2 (12:19→16:08)
[2018-05-06 15:37] LABS: Calcium 8.3 mg/dL (8.4-10.2)
[2018-05-06] MEDS ORDERED: ZOSYN/NS 4.5GM/100ML 4.5 GM/100 ML VIAL IV ONE (16:07)
[2018-05-06] MEDS ORDERED: D5NS 1,000 ML IV ONE (16:29)
[2018-05-06] MEDS: REGLAN PO SCH ×2 (18:10→19:15)
[2018-05-06] MEDS ORDERED: DUONEB *Not for PRN Use IH ONE (18:48)
[2018-05-06] MEDS: DUONEB *Not for PRN Use IH SCH ×3 (18:50→21:17)
[2018-05-06] MEDS: PREVACID SOLUTAB FEEDTUBE SCH (19:15)
[2018-05-06] MEDS: PROAMATINE PO SCH (19:16)
[2018-05-06] MEDS ORDERED: NACL 0.9% 1000 ML 1,000 ML ONE (19:44)
[2018-05-06] MEDS ORDERED: NON-FORMULARY (Simvastatin 40 MG) PO SCH (22:00)
[2018-05-06] MEDS ORDERED: VANCOMYCIN/NS 1 GM/250 ML 1 GM/250 ML BAG IV ONE (23:00)
[2018-05-06] MEDS ORDERED: VANCOMYCIN/NS 1 GM/250 ML 1 GM/250 ML BAG IV SCH (23:45)
[2018-05-07] MEDS: DUONEB *Not for PRN Use IH SCH ×4 (02:28→19:40)
[2018-05-07 04:38] LABS: Basophils # (Auto) 0.2 K/mm3 (0.0-0.1); Eosinophils % (Auto) 0.1 % (0.0-4.3); Hematocrit 30.5 % (30.3-42.9); Hemoglobin 9.3 gm/dl (10.1-14.3); Lymphocytes # (Auto) 1.7 K/mm3 (1.2-5.4); Lymphocytes % (Auto) 9.3 % (13.4-35.0); Mean Corpuscular HGB Conc 30 % (30-34); Mean Corpuscular Volume 98 fl (79-97); Monocytes # (Auto) 0.8 K/mm3 (0.0-0.8); Monocytes % (Auto) 4.6 % (0.0-7.3); Red Blood Count 3.11 M/mm3 (3.65-5.03)
[2018-05-07 04:52] LABS: BUN/Creatinine Ratio 58; Blood Urea Nitrogen 46 mg/dL (7-17); Calcium 7.4 mg/dL (8.4-10.2); Hemolysis Index 62
[2018-05-07 06:01] LABS: Platelet Count 349 K/mm3 (140-440)
[2018-05-07] MEDS: ZOSYN/NS 3.375GM/50ML 3.375 GM/50 ML BAG IV SCH (06:32)
[2018-05-07] MEDS: REGLAN PO SCH ×4 (07:22→12:16)
[2018-05-07] MEDS: PRAVACHOL PO SCH ×2 (07:22→22:16)
[2018-05-07] MEDS: SYNTHROID PO SCH (07:40)
[2018-05-07] MEDS: HumuLIN R SUB-Q SCH ×2 (08:02→12:08)
[2018-05-07] MEDS: PROAMATINE PO SCH ×3 (08:02→19:22)
[2018-05-07] MEDS: PREVACID SOLUTAB FEEDTUBE SCH (10:18)
[2018-05-07] MEDS: FEOSOL PO SCH (10:18)
[2018-05-07] MEDS: ARICEPT PO SCH (10:18)
--- NOTE | 2018-05-07 11:04 | Progress Note ---
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 Hospice was recommended but not chosen. Now, she presents back to [facility] ED with SOB, elevated temperature, hypotension and potassium level of 6.3. She has been admitted to the ICU. Clinically, patie nt looks gravely ill. * pCXR Impression: Interval improvement of CHF but new patch opacities in the right lung base are suspicious for pneumonia. * UA with >180 WBC and positive LE /Acute respiratory failure, likely from PNA most likely from aspiration - duo nebs, bipap as needed, start iv abx, consulted pulmonary /Severe sepsis - could be from PNA +/- UTI, also order blood cx, obtain UA, ordered ua culture after abx started - cont empiric abx for now - on midrodine outpt, will resume - bp did respond to ivf, so no shock - consulted ID /Right LL PNA - from aspiration - cont abx for now - consulted ID /Elevated troponin, chronically elevated - 2d echo a month ago showed preserved Ef, cont to trend, start aspirin and statin - consulted Cardiology /Hyperkalemia - ordered insulin/D50/kayexalate/bicarbonate/calcium chloride - now low, will replace and monitor closely /hypernatremia - on d5 normal saline. will adjust /Severe dementia, supportive care, cont aricept /A. fib rate controlled off anticoagulation due to h/o GI bleed /History of CVA with residual right sided weakness and status post PEG placement PEG care, tube feeding per protocol, cont aspirin and statin /Anemia, with h/o GI bleed, monitor H/H /H/o Hypertension; now hypotensive /Dyslipidemia, cont statin /Type 2 diabetes mellitus, Accu-Chek sliding scale coverage and TF diet and insulin as needed /Hypothyroidism; continue Synthroid closely monitor /DVT prophylaxis; lovenox /Code; full CODE STATUS Very poor prognosis, need discussion with the family patients condition,tr eatment plan CCT 32 minutes History Interval history: Patient was seen and examined. Follow-up on current diagnosis of respiratory failure and hypotension. Patient is nonverbal at bedside. Imaging, nursing note, chart, labs and old chart reviewed. Discussed with family at bedside. Hospitalist Physical - Physical exam Narrative exam: Gen: gravely ill, moderate increase in accessory muscles, eyes opened but not focus, green Vm HEENT: NCAT, EOMI, PERRL, OP dry Neck: supple, no adenopathy, no thyromegaly, no JVD CVS/Heart: Regular tachycardia normal S1S2, pulses present bilaterally Chest/Lungs: diminished bs bilaterally, Symmetrical chest expansion, poor air entry bilaterally GI/Abdomen: soft, NTND, good bowel sounds, no guarding or rebound /Bladder: no suprapubic tenderness, no CVA or paraspinal tenderness Extermity/Skin: no c/c/e, no obvious rash MSK: contracted and atrophic legs without movement Neuro: CN 2-12 grossly intact, no new focal deficits Psych: nonverbal, appears confused and unfocused - Constitutional Vitals: Temp Pulse Resp BP Pulse Ox 97.1 F L 72 16 102/45 100 05/07/18 08:00 05/07/18 10:00 05/07/18 10:00 05/07/18 10:00 05/07/18 10:00 Results - Labs CBC & Chem 7: 05/07/18 04:28 05/07/18 04:28 Labs: Laboratory Last Values WBC 18.2 K/mm3 (4.5-11.0) H 05/07/18 04:28 RBC 3.11 M/mm3 (3.65-5.03) L 05/07/18 04:28 Hgb 9.3 gm/dl (10.1-14.3) L 05/07/18 04:28 Hct 30.5 % (30.3-42.9) 05/07/18 04:28 MCV 98 fl (79-97) H 05/07/18 04:28 MCH 30 pg (28-32) 05/07/18 04:28 MCHC 30 % (30-34) 05/07/18 04:28 RDW 20.0 % (13.2-15.2) H 05/07/18 04:28 Plt Count 349 K/mm3 (140-440) 05/07/18 04:28 Lymph % (Auto) 9.3 % (13.4-35.0) L 05/07/18 04:28 Ogle % (Auto) 4.6 % (0.0-7.3) 05/07/18 04:28 Eos % (Auto) 0.1 % (0.0-4.3) 05/07/18 04:28 Baso % (Auto) 1.0 % (0.0-1.8) 05/07/18 04:28 Lymph # 1.7 K/mm3 (1.2-5.4) 05/07/18 04:28 Ogle # 0.8 K/mm3 (0.0-0.8) 05/07/18 04:28 Eos # 0.0 K/mm3 (0.0-0.4) 05/07/18 04:28 Baso # 0.2 K/mm3 (0.0-0.1) H 05/07/18 04:28 Seg Neutrophils % 85.0 % (40.0-70.0) H 05/07/18 04:28 Seg Neutrophils # 15.4 K/mm3 (1.8-7.7) H 05/07/18 04:28 APTT 27.6 Sec. (24.2-36.6) 05/06/18 08:25 POC ABG pH 7.478 (7.35-7.45) H 05/06/18 10:46 POC ABG pCO2 28.1 (35-45) L 05/06/18 10:46 POC ABG pO2 164 (80-105) H 05/06/18 10:46 POC ABG HCO3 20.8 05/06/18 10:46 POC ABG Total CO2 22 05/06/18 10:46 POC ABG O2 Sat 100 05/06/18 10:46 POC ABG Base Excess -3 05/06/18 10:46 FiO2 35 % 05/06/18 10:46 Sodium 155 mmol/L (137-145) H 05/07/18 04:28 Potassium 3.0 mmol/L (3.6-5.0) L D 05/07/18 04:28 Chloride 116.9 mmol/L (98-107) H 05/07/18 04:28 Carbon Dioxide 25 mmol/L (22-30) 05/07/18 04:28 Anion Gap 16 mmol/L 05/07/18 04:28 BUN 46 mg/dL (7-17) H 05/07/18 04:28 Creatinine 0.8 mg/dL (0.7-1.2) 05/07/18 04:28 Estimated GFR > 60 ml/min 05/07/18 04:28 BUN/Creatinine Ratio 58 % 05/07/18 04:28 Glucose 280 mg/dL (65-100) H 05/07/18 04:28 POC Glucose 296 (70-105) H 05/07/18 07:48 Lactic Acid 5.30 mmol/L (0.7-2.0) H* 05/06/18 16:17 Calcium 7.4 mg/dL (8.4-10.2) L 05/07/18 04:28 Phosphorus 3.30 mg/dL (2.5-4.5) 05/06/18 11:03 Magnesium 2.70 mg/dL (1.7-2.3) H 05/06/18 11:03 Total Bilirubin 0.30 mg/dL (0.1-1.2) 05/06/18 08:25 AST 42 units/L (5-40) H 05/06/18 08:25 ALT 34 units/L (7-56) 05/06/18 08:25 Alkaline Phosphatase 93 units/L (35-129) 05/06/18 08:25 Troponin T 0.068 ng/mL (0.00-0.029) H 05/07/18 04:28 NT-Pro-B Natriuret Pep 4756 pg/mL (0-900) H 05/06/18 08:25 Total Protein 7.9 g/dL (6.3-8.2) 05/06/18 08:25 Albumin 3.0 g/dL (3.9-5) L 05/06/18 08:25 Albumin/Globulin Ratio 0.6 % 05/06/18 08:25 Prealbumin 0.111 g/L (0.200-0.400) L 05/06/18 11:03 Triglycerides 320 mg/dL (2-149) H 05/06/18 08:25 Cholesterol 124 mg/dL (50-199) 05/06/18 08:25 LDL Cholesterol Direct 52 mg/dL (50-130) 05/06/18 08:25 HDL Cholesterol 32 mg/dL (40-59) L 05/06/18 08:25 Cholesterol/HDL Ratio 3.87 % 05/06/18 08:25 Urine Color Yellow (Yellow) 05/06/18 10:37 Urine Turbidity Turbid (Clear) 05/06/18 10:37 Urine pH 7.0 (5.0-7.0) 05/06/18 10:37 Ur Specific [place] 1.008 (1.003-1.030) 05/06/18 10:37 Urine Protein 100 mg/dl mg/dL (Negative) 05/06/18 10:37 Urine Glucose (UA) Neg mg/dL (Negative) 05/06/18 10:37 Urine Ketones Neg mg/dL (Negative) 05/06/18 10:37 Urine Blood Mod (Negative) 05/06/18 10:37 Urine Nitrite Neg (Negative) 05/06/18 10:37 Urine Bilirubin Neg (Negative) 05/06/18 10:37 Urine Urobilinogen < 2.0 mg/dL (<2.0) 05/06/18 10:37 Ur Leukocyte Esterase Mod (Negative) 05/06/18 10:37 Urine WBC (Auto) > 182.0 /HPF (0.0-6.0) H 05/06/18 10:37 Urine RBC (Auto) 56.0 /HPF (0.0-6.0) 05/06/18 10:37 U Epithel Cells (Auto) 7.0 /HPF (0-13.0) 05/06/18 10:37 Urine Bacteria (Auto) 4+ /HPF (Negative) 05/06/18 10:37 Urine WBC Clumps 3+ /HPF 05/06/18 10:37 Urine Mucus 3+ /HPF 05/06/18 10:37 Digoxin 2.6 ng/mL (0.9-2.0) H* 05/06/18 09:56 Nutrition/Malnutrition Assess - Dietary Evaluation Nutrition/Malnutrition Findings: Nutrition Notes Start: 05/06/18 15:02 Freq: Status: Active Protocol: Document 05/06/18 15:02 LETY (Rec: 05/06/18 15:24 [facility] SR- [id number]) Nutrition Notes Need for Assessment generated from: MD Order Initial or Follow up Assessment Current Diagnosis Diabetes Sepsis Hypertension Respiratory Failure Stroke Other Pertinent Diagnosis RLL pneu, severe dementia Current Diet NPO Labs/Tests K 6.3 BUN 60 BG 291 Mg 2.7 PAB 0.111 TG 320 Pertinent Medications D5 NS at 75ml/hr, Feosol Height 5 ft Weight 47.174 kg [place] Body Weight (kg) 45.45 BMI 20.2 Weight Status Underweight Subjective/Other Information RD consulted for TF. Pt in ED at this time. Pt from [place] Burn Absent Trauma Absent #1 Nutrition Diagnosis Inadequate oral intake Etiology hx of CVA, severe dementia, advanced age As Evidenced by Signs and Symptoms Pt NPO Is patient on ventilator? No Is Patient Ambulatory and/or Out of Bed No REE-([facility]-confined to bed) 995.772 Kcal/Kg value to use for calculation 30 Approximate Energy Requirements Using 1415 kcal/Kg Calculation Used for Recommendations Kcal/kg Additional Notes Pro needs 1.2-2g/k-94g/ day Fluid needs 1ml/kcal Nutrition Intervention Nutrition Support: Glucerna 1.2 at 45ml/hr with 75ml water flush q4h. Kcal 1,296 Protein (gm) 65 Carbohydrates (gm) 124 Fat (gm) 65 Fluid (mL) 869 Fiber (gm) 17 Goal #1 TF tolerance Goal #2 TF to meet 100% energy and pro needs Anticipated Discharge Needs: Continue Glucerna 1.2 (or equivalent) at 45ml/hr with 75ml water flush q4h Follow-Up By: 05/08/18 Additional Comments F/U: new TF; check K lab
[2018-05-07] MEDS ORDERED: POTASSIUM CHLORIDE FEEDTUBE ONE ×2 (12:00→15:00)
[2018-05-07] MEDS ORDERED: ZOSYN/NS 3.375GM/50ML 3.375 GM/50 ML BAG IV SCH (12:00)
[2018-05-07] MEDS: D5/0.45NS 1,000 ML IV SCH ×2 (12:07→23:12)
[2018-05-07] MEDS: FREE WATER PO SCH (12:32)
--- NOTE | 2018-05-07 12:50 | Consultation ---
History of Present Illness Consult date: 05/07/18 Requesting physician: ANABELL EMERY Reason for consult: dyspnea, hypoxemia, other (bacteremia) History of present illness: 87 y/o female, admitted to the hospital before comes in with difficulty in breathing from fpc. Also with some hypotension and fever. Concern for sepsis and with marginal BP's, placed in ICU for further monitoring. Patient had been on midodrine as an outpatient but this had not been continued. Patient has since been weaned from bipap and is currently on room air. Cultures are pos itive for GPC in chains and patient is already on abx therapy. Patient has severe dementia and is nonverbal. Past History Past Medical History: other (please see IMS H and P) Past Surgical History: Other (unable to obtain) Social history: other (unable to obtain, lives in fpc) Family history: other (unable to obtain) Medications and Allergies Allergies Allergy/AdvReac Type Severity Reaction Status Date / Time No Known Allergies Allergy Verified 04/08/18 02:43 Home Medications Medication Instructions Recorded Confirmed Last Taken Type Docusate Sodium [Colace CAP] 100 mg PO BID PRN 06/18/16 05/06/18 04/07/18 History Levothyroxine [Synthroid] 75 mcg PO DAILY@0600 #30 tablet 08/12/16 05/06/18 04/07/18 Rx Digoxin [Lanoxin] 0.125 mg PO DAILY 04/08/18 05/06/18 04/07/18 History Lisinopril [Prinivil] 5 mg PO DAILY 04/08/18 05/06/18 04/07/18 History Metoclopramide HCl 5 mg PO Q6HR 04/08/18 05/06/18 04/07/18 History Metoprolol Tartrate 25 mg PO DAILY 04/08/18 05/06/18 04/07/18 History Potassium Chloride [Klor-Con] 20 meq PO DAILY 04/08/18 05/06/18 04/07/18 History Simvastatin 40 mg PO DAILY 04/08/18 05/06/18 04/07/18 History Torsemide [Demadex] 20 mg PO DAILY 04/08/18 05/06/18 04/07/18 History Calcium Carbonate [Oscal] 1,250 mg PO TID #90 tablet 04/17/18 05/06/18 Unknown Rx Donepezil [Aricept] 5 mg PO QDAY tablet 04/17/18 05/06/18 Unknown Rx Ferrous Sulfate [Feosol 325 MG tab] 325 mg PO QDAY tablet 04/17/18 05/06/18 Unknown Rx Insulin Regular, Human [HumuLIN R] 0 unit SQ AC #1 vial 04/17/18 05/06/18 Unknown Rx Ipratropium/Albuterol Sulfate 1 ampul IH BIDRT ampul.neb 04/17/18 05/06/18 Unknown Rx [DUONEB *Not for PRN Use*] Lipase/Protease/Amylase [Pancreaze 1 each FEEDTUBE PRN PRN capsule 04/17/18 05/06/18 Unknown Rx 10,500 Unit] Loperamide [Imodium] 2 mg PO Q2H PRN capsule 04/17/18 05/06/18 Unknown Rx Midodrine [Proamatine] 5 mg PO TID@0800,1200,1600 #90 04/17/18 05/06/18 Unknown Rx tablet Aspirin [Adult Aspirin] 81 mg PO DAILY 05/06/18 05/06/18 Unknown History Active Meds: Active Medications Acetaminophen (Tylenol) 650 mg PO Q4H PRN PRN Reason: Pain, Mild (1-3) Albuterol/Ipratropium (Duoneb *Not For Prn Use*) 1 ampul IH Q6HRT [facility] Last Admin: 05/07/18 09:31 Dose: 1 ampul Documented by: Lipase/Protease/Amylase (Pancreaze 10,500 Unit) 1 each FEEDTUBE PRN PRN PRN Reason: For Clogged Feeding Tube Docusate Sodium (Colace) 100 mg PO BID PRN PRN Reason: Constipation Donepezil HCl (Aricept) 5 mg PO QDAY [facility] Last Admin: 05/07/18 10:18 Dose: 5 mg Documented by: Ferrous Sulfate (Feosol) 325 mg PO QDAY [facility] Last Admin: 05/07/18 10:18 Dose: 325 mg Documented by: Vancomycin HCl 750 mg/ Sodium (Chloride) 265 mls @ 166.667 mls/hr IV Q24H [facility] Piperacillin Sod/Tazobactam Sod (Zosyn/Ns 3.375gm/50ml) 3.375 gm in 50 mls @ 100 mls/hr IV Q6HR [facility]; Protocol Last Admin: 05/07/18 12:07 Dose: 100 mls/hr Documented by: Dextrose/Sodium Chloride (D5/0.45ns) 1,000 mls @ 100 mls/hr IV DIRECT [facility] Last Admin: 05/07/18 12:07 Dose: 100 mls/hr Documented by: Insulin Human Regular (Humulin R) 0 units SUB-Q Q6HR [facility]; Protocol Last Admin: 05/07/18 12:08 Dose: 4 units Documented by: Lansoprazole (Prevacid Solutab) 30 mg FEEDTUBE QDAY [facility] Last Admin: 05/07/18 10:18 Dose: 30 mg Documented by: Levothyroxine Sodium (Synthroid) 75 mcg PO DAILY@0600 [facility] Last Admin: 05/07/18 07:40 Dose: Not Given Documented by: Metoclopramide HCl (Reglan) 5 mg PO Q6HR [facility] Last Admin: 05/07/18 12:16 Dose: 5 mg Documented by: Midodrine (Proamatine) 5 mg PO TID@0800,1200,1600 [facility] Last Admin: 05/07/18 12:07 Dose: 5 mg Documented by: Pravastatin Sodium (Pravachol) 80 mg PO QHS [facility] Last Admin: 05/07/18 07:22 Dose: Not Given Documented by: Simple Syrup (Simple Syrup) 15 ml FEEDTUBE PRN PRN PRN Reason: Hypoglycemia Simple Syrup (Simple Syrup) 30 ml FEEDTUBE PRN PRN PRN Reason: Hypoglycemia Sodium Bicarbonate (Sodium Bicarbonate) 325 mg FEEDTUBE PRN PRN PRN Reason: For Clogged Feeding Tube Review of Systems ROS unobtainable: due to mental status Physical Examination Vital signs: Vital Signs Pulse Ox 99 05/06/18 08:02 General appearance: no acute distress, other (non verbal) Eyes: non-icteric ENT: oropharynx dry Neck: supple Ascultation: Bilateral: clear Results - Laboratory Findings CBC and BMP: 05/07/18 04:28 05/07/18 04:28 ABG POC ABG pH 7.478 (7.35-7.45) H 05/06/18 10:46 POC ABG pCO2 28.1 (35-45) L 05/06/18 10:46 POC ABG pO2 164 (80-105) H 05/06/18 10:46 POC ABG HCO3 20.8 05/06/18 10:46 POC ABG Total CO2 22 05/06/18 10:46 POC ABG O2 Sat 100 05/06/18 10:46 Abnormal lab findings: Abnormal Labs 05/06/18 05/06/18 05/06/18 08:25 08:25 08:25 WBC 18.6 H RBC Hgb MCV RDW 19.2 H Plt Count 492 H Lymph % (Auto) 10.7 L [place] # 1.0 H Baso # Seg Neutrophils % 83.9 H Seg Neutrophils # 15.6 H POC ABG pH POC ABG pCO2 POC ABG pO2 Sodium Potassium 6.3 H* Chloride BUN 60 H Glucose 291 H POC Glucose Lactic Acid 6.10 H* Calcium Magnesium AST 42 H Troponin T NT-Pro-B Natriuret Pep Albumin 3.0 L Prealbumin Triglycerides HDL Cholesterol Urine WBC (Auto) Digoxin 05/06/18 05/06/18 05/06/18 08:25 09:56 10:37 WBC RBC Hgb MCV RDW Plt Count Lymph % (Auto) [place] # Baso # Seg Neutrophils % Seg Neutrophils # POC ABG pH POC ABG pCO2 POC ABG pO2 Sodium Potassium Chloride BUN Glucose POC Glucose Lactic Acid Calcium Magnesium AST Troponin T 0.143 H* NT-Pro-B Natriuret Pep 4756 H Albumin Prealbumin Triglycerides 320 H HDL Cholesterol 32 L Urine WBC (Auto) > 182.0 H Digoxin 2.6 H* 05/06/18 05/06/18 05/06/18 10:46 11:03 11:03 WBC RBC Hgb MCV RDW Plt Count Lymph % (Auto) [place] # Baso # Seg Neutrophils % Seg Neutrophils # POC ABG pH 7.478 H POC ABG pCO2 28.1 L POC ABG pO2 164 H Sodium Potassium Chloride BUN Glucose POC Glucose Lactic Acid 2.40 H* Calcium Magnesium 2.70 H AST Troponin T NT-Pro-B Natriuret Pep Albumin Prealbumin 0.111 L Triglycerides HDL Cholesterol Urine WBC (Auto) Digoxin 05/06/18 05/06/18 05/06/18 12:31 15:10 15:10 WBC RBC Hgb MCV RDW Plt Count Lymph % (Auto) [place] # Baso # Seg Neutrophils % Seg Neutrophils # POC ABG pH POC ABG pCO2 POC ABG pO2 Sodium 151 H Potassium Chloride 109.2 H BUN 57 H Glucose 307 H POC Glucose 355 H Lactic Acid Calcium 8.3 L Magnesium AST Troponin T 0.099 H NT-Pro-B Natriuret Pep Albumin Prealbumin Triglycerides HDL Cholesterol Urine WBC (Auto) Digoxin 05/06/18 05/06/18 05/06/18 15:10 15:52 16:17 WBC RBC Hgb MCV RDW Plt Count Lymph % (Auto) [place] # Baso # Seg Neutrophils % Seg Neutrophils # POC ABG pH POC ABG pCO2 POC ABG pO2 Sodium Potassium Chloride BUN Glucose POC Glucose 295 H Lactic Acid 5.00 H* 5.30 H* Calcium Magnesium AST Troponin T NT-Pro-B Natriuret Pep Albumin Prealbumin Triglycerides HDL Cholesterol Urine WBC (Auto) Digoxin 05/06/18 05/07/18 05/07/18 21:29 00:09 04:28 WBC 18.2 H RBC 3.11 L Hgb 9.3 L MCV 98 H RDW 20.0 H Plt Count Lymph % (Auto) 9.3 L [place] # Baso # 0.2 H Seg Neutrophils % 85.0 H Seg Neutrophils # 15.4 H POC ABG pH POC ABG pCO2 POC ABG pO2 Sodium Potassium Chloride BUN Glucose POC Glucose 318 H Lactic Acid Calcium Magnesium AST Troponin T 0.079 H D NT-Pro-B Natriuret Pep Albumin Prealbumin Triglycerides HDL Cholesterol Urine WBC (Auto) Digoxin 05/07/18 05/07/18 05/07/18 04:28 04:28 07:48 WBC RBC Hgb MCV RDW Plt Count Lymph % (Auto) [place] # Baso # Seg Neutrophils % Seg Neutrophils # POC ABG pH POC ABG pCO2 POC ABG pO2 Sodium 155 H Potassium 3.0 L D Chloride 116.9 H BUN 46 H Glucose 280 H POC Glucose 296 H Lactic Acid Calcium 7.4 L Magnesium AST Troponin T 0.068 H NT-Pro-B Natriuret Pep Albumin Prealbumin Triglycerides HDL Cholesterol Urine WBC (Auto) Digoxin 05/07/18 12:02 WBC RBC Hgb MCV RDW Plt Count Lymph % (Auto) [place] # Baso # Seg Neutrophils % Seg Neutrophils # POC ABG pH POC ABG pCO2 POC ABG pO2 Sodium Potassium Chloride BUN Glucose POC Glucose 271 H Lactic Acid Calcium Magnesium AST Troponin T NT-Pro-B Natriuret Pep Albumin Prealbumin Triglycerides HDL Cholesterol Urine WBC (Auto) Digoxin - Diagnostic Findings Chest x-ray: image reviewed Assessment and Plan 87 y/o female with dyspnea, now found to be bacteremic, source unknown but suspect urine vs lung 1. Now on room air and stable 2. Continue IV abx therapy 3. ID consult 4. Stable and safe for transition out of ICU, spoke with [facility] and they are in agreement.
--- NOTE | 2018-05-07 13:23 | Consultation ---
History of Present Illness Consult date: 05/07/18 Requesting physician: ANABELL EMERY Consult reason: atrial fibrillation History of present illness: The pt is an 87 YO female [facility] resident with a past medical history of paroxysmal atrial fibrillation, GI bleed, no systemic AC secondary to GI bleed and advanced dementia, CVA with right-sided hemiplegia and aphasia, s/p PEG tube, HTN, HLP, DM. She is known to our practice. She has dementia and is lethargic on evaluation and thus HPI is obtained per the chart. She presented from [facility] for evaluation of shortness of breath and fever. She has subsequently been diagnosed with UTI, suspected PNA, hypotension, bacteremia (cultures are positive for GPC in chains), sepsis, lactic acidosis, hyperkalemia. Cardiology has been consulted for atrial fibrillation. On evaluation, she is noted to be in atrial fibrillation with CVR. Her home medication regimen includes digoxin, lopressor, lisinopril. Digoxin level at admission was 2.6. Echo done 04/09/18 showed EF 50-55%, mild LVH. 07/2016 showed EF 50-55%, mild LVH, abnormal diastolic function, LA mild to mod dilated, mild MR, mod TR, RVSP 41mmHg. Lexiscan MPI stress test done 09/2014 showed mod sized mostly reversible defect in mid anterior wall possibly c/w ischemia, no TID, normal LV systolic performance. Past History Past Medical History: other (as per HPI) Past Surgical History: Other (unable to obtain) Social history: other (unable to obtain, lives in [facility]) Family history: other (unable to obtain) Medications and Allergies Allergies Allergy/AdvReac Type Severity Reaction Status Date / Time No Known Allergies Allergy Verified 04/08/18 02:43 Home Medications Medication Instructions Recorded Confirmed Last Taken Type Docusate Sodium [Colace CAP] 100 mg PO BID PRN 06/18/16 05/06/18 04/07/18 History Levothyroxine [Synthroid] 75 mcg PO DAILY@0600 #30 tablet 08/12/16 05/06/18 04/07/18 Rx Digoxin [Lanoxin] 0.125 mg PO DAILY 04/08/18 05/06/18 04/07/18 History Lisinopril [Prinivil] 5 mg PO DAILY 04/08/18 05/06/18 04/07/18 History Metoclopramide HCl 5 mg PO Q6HR 04/08/18 05/06/18 04/07/18 History Metoprolol Tartrate 25 mg PO DAILY 04/08/18 05/06/18 04/07/18 History Potassium Chloride [Klor-Con] 20 meq PO DAILY 04/08/18 05/06/18 04/07/18 History Simvastatin 40 mg PO DAILY 04/08/18 05/06/18 04/07/18 History Torsemide [Demadex] 20 mg PO DAILY 04/08/18 05/06/18 04/07/18 History Calcium Carbonate [Oscal] 1,250 mg PO TID #90 tablet 04/17/18 05/06/18 Unknown Rx Donepezil [Aricept] 5 mg PO QDAY tablet 04/17/18 05/06/18 Unknown Rx Ferrous Sulfate [Feosol 325 MG tab] 325 mg PO QDAY tablet 04/17/18 05/06/18 Unknown Rx Insulin Regular, Human [HumuLIN R] 0 unit SQ AC #1 vial 04/17/18 05/06/18 Unknown Rx Ipratropium/Albuterol Sulfate 1 ampul IH BIDRT ampul.neb 04/17/18 05/06/18 Unknown Rx [DUONEB *Not for PRN Use*] Lipase/Protease/Amylase [Pancreaze 1 each FEEDTUBE PRN PRN capsule 04/17/18 05/06/18 Unknown Rx 10,500 Unit] Loperamide [Imodium] 2 mg PO Q2H PRN capsule 04/17/18 05/06/18 Unknown Rx Midodrine [Proamatine] 5 mg PO TID@0800,1200,1600 #90 04/17/18 05/06/18 Unknown Rx tablet Aspirin [Adult Aspirin] 81 mg PO DAILY 05/06/18 05/06/18 Unknown History Active Meds: Active Medications Acetaminophen (Tylenol) 650 mg PO Q4H PRN PRN Reason: Pain, Mild (1-3) Albuterol/Ipratropium (Duoneb *Not For Prn Use*) 1 ampul IH Q6HRT [facility] Last Admin: 05/07/18 09:31 Dose: 1 ampul Documented by: Lipase/Protease/Amylase (Telma [place] 10,500 Unit) 1 each FEEDTUBE PRN PRN PRN Reason: For Clogged Feeding Tube Docusate Sodium (Colace) 100 mg PO BID PRN PRN Reason: Constipation Donepezil HCl (Aricept) 5 mg PO QDAY [facility] Last Admin: 05/07/18 10:18 Dose: 5 mg Documented by: Ferrous Sulfate (Feosol) 325 mg PO QDAY [facility] Last Admin: 05/07/18 10:18 Dose: 325 mg Documented by: Vancomycin HCl 750 mg/ Sodium (Chloride) 265 mls @ 166.667 mls/hr IV Q24H [facility] Piperacillin Sod/Tazobactam Sod (Zosyn/Ns 3.375gm/50ml) 3.375 gm in 50 mls @ 100 mls/hr IV Q6HR [facility]; Protocol Last Admin: 05/07/18 12:07 Dose: 100 mls/hr Documented by: Dextrose/Sodium Chloride (D5/0.45ns) 1,000 mls @ 100 mls/hr IV DIRECT [facility] Last Admin: 05/07/18 12:07 Dose: 100 mls/hr Documented by: Insulin Human Regular (Humulin R) 0 units SUB-Q Q6HR [facility]; Protocol Last Admin: 05/07/18 12:08 Dose: 4 units Documented by: Lansoprazole (Prevacid Solutab) 30 mg FEEDTUBE QDAY [facility] Last Admin: 05/07/18 10:18 Dose: 30 mg Documented by: Levothyroxine Sodium (Synthroid) 75 mcg PO DAILY@0600 [facility] Last Admin: 05/07/18 07:40 Dose: Not Given Documented by: Metoclopramide HCl (Reglan) 5 mg PO Q6HR [facility] Last Admin: 05/07/18 12:16 Dose: 5 mg Documented by: Midodrine (Proamatine) 5 mg PO TID@0800,1200,1600 [facility] Last Admin: 05/07/18 12:07 Dose: 5 mg Documented by: Pravastatin Sodium (Pravachol) 80 mg PO QHS [facility] Last Admin: 05/07/18 07:22 Dose: Not Given Documented by: Simple Syrup (Simple Syrup) 15 ml FEEDTUBE PRN PRN PRN Reason: Hypoglycemia Simple Syrup (Simple Syrup) 30 ml FEEDTUBE PRN PRN PRN Reason: Hypoglycemia Sodium Bicarbonate (Sodium Bicarbonate) 325 mg FEEDTUBE PRN PRN PRN Reason: For Clogged Feeding Tube Review of Systems ROS unobtainable: due to mental status Physical Examination Vital Signs Pulse Ox 99 05/06/18 08:02 General appearance: other (lethargic, nonverbal) Cardiac: Positive: irregularly irregular, S1/S2 Lungs: Positive: Decreased Breath Sounds Neuro: Positive: Other (lethargic, nonverbal, unable to assess) Skin: Negative: Rash Musculoskeletal: No Pain Extremities: Absent: edema Results 05/07/18 04:28 05/07/18 04:28 CBC 05/07/18 Range/Units 04:28 WBC 18.2 H (4.5-11.0) K/mm3 RBC 3.11 L (3.65-5.03) M/mm3 Hgb 9.3 L (10.1-14.3) gm/dl Hct 30.5 (30.3-42.9) % Plt Count 349 (140-440) K/mm3 Lymph # 1.7 (1.2-5.4) K/mm3 [place] # 0.8 (0.0-0.8) K/mm3 Eos # 0.0 (0.0-0.4) K/mm3 Baso # 0.2 H (0.0-0.1) K/mm3 Comprehensive Metabolic Panel 05/06/18 05/07/18 Range/Units 15:10 04:28 Sodium 151 H 155 H (137-145) mmol/L Potassium 4.3 D 3.0 L D (3.6-5.0) mmol/L Chloride 109.2 H 116.9 H (98-107) mmol/L Carbon Dioxide 25 25 (22-30) mmol/L BUN 57 H 46 H (7-17) mg/dL Creatinine 1.0 0.8 (0.7-1.2) mg/dL Glucose 307 H 280 H (65-100) mg/dL Calcium 8.3 L 7.4 L (8.4-10.2) mg/dL - Imaging and Cardiology Echo: report reviewed (04/09/18 showed EF 50-55%, mild LVH. 07/2016 showed EF 50- 55%, mild LVH, abnormal diastolic function, LA mild to mod dilated, mild MR, mod TR, RVSP 41mmHg.) EKG: report reviewed, image reviewed EKG interpretations - Telemetry EKG Rhythm: Atrial Fibrillation - EKG Supraventricular dysrhythmia: atrial fibrillation Assessment and Plan Cont supportive measures. Pt now in AFib with CVR. No systemic AC secondary to GI bleed and advanced dementia. The patient has been seen in conjunction with Dr. TEO Mccarthy who agrees with the a ssessment and plan of care. - Patient Problems (1) Atrial fibrillation with RVR Current Visit: Yes Status: Acute (2) Elevated digoxin level Current Visit: Yes Status: Acute (3) Acute respiratory failure Current Visit: Yes Status: Acute (4) Sepsis Current Visit: Yes Status: Acute (5) Bacteremia Current Visit: Yes Status: Acute (6) Pneumonia Current Visit: Yes Status: Suspected (7) UTI (urinary tract infection) Current Visit: Yes Status: Acute Qualifiers: Urinary tract infection type: site unspecified Hematuria presence: without hematuria Qualified Code(s): N39.0 - Urinary tract infection, site not specified (8) History of CVA (cerebrovascular accident) Current Visit: Yes Status: Chronic (9) History of GI bleed Current Visit: Yes Status: Chronic (10) Diabetes Current Visit: Yes Status: Chronic (11) Hyperkalemia Current Visit: Yes Status: Acute (12) Dementia Current Visit: Yes Status: Chronic
--- NOTE | 2018-05-07 15:31 | Consultation ---
History of Present Illness - Reason for Consult Consult date: 05/07/18 Sepsis Requesting physician: ANABELL EMERY - History of Present Illness The patient is an 87-year-old female with prior CVA, right-sided hemiplegia, CHF, diabetes mellitus, vascular dementia who is currently a group home resident was brought to the emergency room yesterday with shortness of breath an d fevers. The patient has advanced dementia and is unable to provide any history. She is nonverbal at baseline. Here in the ER, she was noted to be hypotensive with leukocytosis and elevated lactic acid. She was given IV fluid resuscitation and empirically started on IV Zosyn and vancomycin. She was initially admitted to ICU and today has been transferred to the floor. She initially required BiPAP which was quickly transitioned to room air once she was stable. Infectious diseases was consulted for antibiotic recommendations. Patient appears to be comfortable lying in bed. She has IV fluids running along with tube fluids. She has an indwelling Abbott catheter which seemingly was exchanged in the emergency room and is draining clear urine. Cultures drawn on admission have turned positive for gram-positive cocci. UA on admission showed pyuria. Review of Systems: Unable to be obtained due to nonverbal status. Past History Past Medical History: other (as per HPI) Past Surgical History: Other (unable to obtain) Social history: other (unable to obtain, lives in group home) Family history: other (unable to obtain) Medications and Allergies Allergies Allergy/AdvReac Type Severity Reaction Status Date / Time No Known Allergies Allergy Verified 04/08/18 02:43 Home Medications Medication Instructions Recorded Confirmed Last Taken Type Docusate Sodium [Colace CAP] 100 mg PO BID PRN 06/18/16 05/06/18 04/07/18 History Levothyroxine [Synthroid] 75 mcg PO DAILY@0600 #30 tablet 08/12/16 05/06/18 04/07/18 Rx Digoxin [Lanoxin] 0.125 mg PO DAILY 04/08/18 05/06/18 04/07/18 History Lisinopril [Prinivil] 5 mg PO DAILY 04/08/18 05/06/18 04/07/18 History Metoclopramide HCl 5 mg PO Q6HR 04/08/18 05/06/18 04/07/18 History Metoprolol Tartrate 25 mg PO DAILY 01/05/06/18 04/07/18 History Potassium Chloride [Klor-Con] 20 meq PO DAILY 04/08/18 05/06/18 04/07/18 History Simvastatin 40 mg PO DAILY 04/08/18 05/06/18 04/07/18 History Torsemide [Demadex] 20 mg PO DAILY 04/08/18 05/06/18 04/07/18 History Calcium Carbonate [Oscal] 1,250 mg PO TID #90 tablet 04/17/18 05/06/18 Unknown Rx Donepezil [Aricept] 5 mg PO QDAY tablet 04/17/18 05/06/18 Unknown Rx Ferrous Sulfate [Feosol 325 MG tab] 325 mg PO QDAY tablet 04/17/18 05/06/18 Unknown Rx Insulin Regular, Human [HumuLIN R] 0 unit SQ AC #1 vial 04/17/18 05/06/18 Unknown Rx Ipratropium/Albuterol Sulfate 1 ampul IH BIDRT ampul.neb 04/17/18 05/06/18 Unknown Rx [DUONEB *Not for PRN Use*] Lipase/Protease/Amylase [Pancreaze 1 each FEEDTUBE PRN PRN capsule 04/17/18 05/06/18 Unknown Rx 10,500 Unit] Loperamide [Imodium] 2 mg PO Q2H PRN capsule 04/17/18 05/06/18 Unknown Rx Midodrine [Proamatine] 5 mg PO TID@0800,1200,1600 #90 04/17/18 05/06/18 Unknown Rx tablet Aspirin [Adult Aspirin] 81 mg PO DAILY 05/06/18 05/06/18 Unknown History Active Meds: Active Medications Acetaminophen (Tylenol) 650 mg PO Q4H PRN PRN Reason: Pain, Mild (1-3) Albuterol/Ipratropium (Duoneb *Not For Prn Use*) 1 ampul IH Q6HRT [facility] Last Admin: 05/07/18 14:13 Dose: 1 ampul Documented by: Lipase/Protease/Amylase (Pancreaze 10,500 Unit) 1 each FEEDTUBE PRN PRN PRN Reason: For Clogged Feeding Tube Docusate Sodium (Colace) 100 mg PO BID PRN PRN Reason: Constipation Donepezil HCl (Aricept) 5 mg PO QDAY [facility] Last Admin: 05/07/18 10:18 Dose: 5 mg Documented by: Ferrous Sulfate (Feosol) 325 mg PO QDAY [facility] Last Admin: 05/07/18 10:18 Dose: 325 mg Documented by: Vancomycin HCl 750 mg/ Sodium (Chloride) 265 mls @ 166.667 mls/hr IV Q24H [facility] Dextrose/Sodium Chloride (D5/0.45ns) 1,000 mls @ 100 mls/hr IV DIRECT [facility] Last Admin: 05/07/18 12:07 Dose: 100 mls/hr Documented by: Cefepime HCl (Maxipime/Ns 1 Gm/100 Ml) 1 gm in 100 mls @ 200 mls/hr IV Q8HR [facility]; Protocol Insulin Human Regular (Humulin R) 0 units SUB-Q Q6HR [facility]; Protocol Last Admin: 05/07/18 12:08 Dose: 4 units Documented by: Lansoprazole (Prevacid Solutab) 30 mg FEEDTUBE QDAY [facility] Last Admin: 05/07/18 10:18 Dose: 30 mg Documented by: Levothyroxine Sodium (Synthroid) 75 mcg PO DAILY@0600 [facility] Last Admin: 05/07/18 07:40 Dose: Not Given Documented by: Metoclopramide HCl (Reglan) 5 mg PO Q6HR [facility] Last Admin: 05/07/18 12:16 Dose: 5 mg Documented by: Midodrine (Proamatine) 5 mg PO TID@0800,1200,1600 [facility] Last Admin: 05/07/18 12:07 Dose: 5 mg Documented by: Pravastatin Sodium (Pravachol) 80 mg PO QHS [facility] Last Admin: 05/07/18 07:22 Dose: Not Given Documented by: Simple Syrup (Simple Syrup) 15 ml FEEDTUBE PRN PRN PRN Reason: Hypoglycemia Simple Syrup (Simple Syrup) 30 ml FEEDTUBE PRN PRN PRN Reason: Hypoglycemia Sodium Bicarbonate (Sodium Bicarbonate) 325 mg FEEDTUBE PRN PRN PRN Reason: For Clogged Feeding Tube Physical Examination - Physical Exam Narrative exam: Physical Exam: Constitutional: awake, non verbal, no distress Head, Ears, Nose: Normocephalic, atraumatic. External ears, nose normal Eyes: Conjunctivae/corneas clear. No icterus. No ptosis. Neck: Supple, no meningeal signs Oral: mucosa dry, tongue coated with plaque Cardiovascular: S1, S2 normal. Respiratory: Good air entry, clear to auscultation bilaterally GI: Soft, non-tender; bowel sounds normal. No peritoneal signs. Gtube + Musculoskeletal: No pedal edema, no cyanosis. Skin: No rash or abscess Hem/Lymphatic: No palpable cervical or supraclavicular nodes. No lymphangitis Psych: no agitation Neurological: awake, non verbal, bedbound - Constitutional Vitals: Vital Signs Temp Pulse Resp BP Pulse Ox 98.9 F 85 20 97/52 96 05/07/18 15:21 05/07/18 15:21 05/07/18 15:21 05/07/18 15:21 05/07/18 15:21 Temperature -Last 24 Hours Temperature 98.9 F Temperature 97.6 F Temperature 97.1 F Temperature 99.8 F Temperature 98.9 F Temperature 97.6 F Temperature 99 F Results - Labs CBC & Chem 7: 05/07/18 04:28 05/07/18 04:28 Labs: Abnormal lab results 05/06/18 05/06/18 05/06/18 Range/Units 12:31 15:10 15:10 WBC (4.5-11.0) K/mm3 RBC (3.65-5.03) M/mm3 Hgb (10.1-14.3) gm/dl MCV (79-97) fl RDW (13.2-15.2) % Lymph % (Auto) (13.4-35.0) % Baso # (0.0-0.1) K/mm3 Seg Neutrophils % (40.0-70.0) % Seg Neutrophils # (1.8-7.7) K/mm3 Sodium 151 H (137-145) mmol/L Potassium (3.6-5.0) mmol/L Chloride 109.2 H (98-107) mmol/L BUN 57 H (7-17) mg/dL Glucose 307 H (65-100) mg/dL POC Glucose 355 H (70-105) Lactic Acid (0.7-2.0) mmol/L Calcium 8.3 L (8.4-10.2) mg/dL Troponin T 0.099 H (0.00-0.029) ng/mL 05/06/18 05/06/18 05/06/18 Range/Units 15:10 15:52 16:17 WBC (4.5-11.0) K/mm3 RBC (3.65-5.03) M/mm3 Hgb (10.1-14.3) gm/dl MCV (79-97) fl RDW (13.2-15.2) % Lymph % (Auto) (13.4-35.0) % Baso # (0.0-0.1) K/mm3 Seg Neutrophils % (40.0-70.0) % Seg Neutrophils # (1.8-7.7) K/mm3 Sodium (137-145) mmol/L Potassium (3.6-5.0) mmol/L Chloride (98-107) mmol/L BUN (7-17) mg/dL Glucose (65-100) mg/dL POC Glucose 295 H (70-105) Lactic Acid 5.00 H* 5.30 H* (0.7-2.0) mmol/L Calcium (8.4-10.2) mg/dL Troponin T (0.00-0.029) ng/mL 05/06/18 05/07/18 05/07/18 Range/Units 21:29 00:09 04:28 WBC 18.2 H (4.5-11.0) K/mm3 RBC 3.11 L (3.65-5.03) M/mm3 Hgb 9.3 L (10.1-14.3) gm/dl MCV 98 H (79-97) fl RDW 20.0 H (13.2-15.2) % Lymph % (Auto) 9.3 L (13.4-35.0) % Baso # 0.2 H (0.0-0.1) K/mm3 Seg Neutrophils % 85.0 H (40.0-70.0) % Seg Neutrophils # 15.4 H (1.8-7.7) K/mm3 Sodium (137-145) mmol/L Potassium (3.6-5.0) mmol/L Chloride (98-107) mmol/L BUN (7-17) mg/dL Glucose (65-100) mg/dL POC Glucose 318 H (70-105) Lactic Acid (0.7-2.0) mmol/L Calcium (8.4-10.2) mg/dL Troponin T 0.079 H D (0.00-0.029) ng/mL 05/07/18 05/07/18 05/07/18 Range/Units 04:28 04:28 07:48 WBC (4.5-11.0) K/mm3 RBC (3.65-5.03) M/mm3 Hgb (10.1-14.3) gm/dl MCV (79-97) fl RDW (13.2-15.2) % Lymph % (Auto) (13.4-35.0) % Baso # (0.0-0.1) K/mm3 Seg Neutrophils % (40.0-70.0) % Seg Neutrophils # (1.8-7.7) K/mm3 Sodium 155 H (137-145) mmol/L Potassium 3.0 L D (3.6-5.0) mmol/L Chloride 116.9 H (98-107) mmol/L BUN 46 H (7-17) mg/dL Glucose 280 H (65-100) mg/dL POC Glucose 296 H (70-105) Lactic Acid (0.7-2.0) mmol/L Calcium 7.4 L (8.4-10.2) mg/dL Troponin T 0.068 H (0.00-0.029) ng/mL 05/07/18 Range/Units 12:02 WBC (4.5-11.0) K/mm3 RBC (3.65-5.03) M/mm3 Hgb (10.1-14.3) gm/dl MCV (79-97) fl RDW (13.2-15.2) % Lymph % (Auto) (13.4-35.0) % Baso # (0.0-0.1) K/mm3 Seg Neutrophils % (40.0-70.0) % Seg Neutrophils # (1.8-7.7) K/mm3 Sodium (137-145) mmol/L Potassium (3.6-5.0) mmol/L Chloride (98-107) mmol/L BUN (7-17) mg/dL Glucose (65-100) mg/dL POC Glucose 271 H (70-105) Lactic Acid (0.7-2.0) mmol/L Calcium (8.4-10.2) mg/dL Troponin T (0.00-0.029) ng/mL - Imaging and Cardiology Chest x-ray: report reviewed, image reviewed (few right basilar opacities: pneumonia v/s atelectasis.) Assessment and Plan Cultures: 05/06/2018 blood culture: One set, both bottles positive for gram-positive cocci 05/06/2018 urine culture: In process A/P: 87-year-old female with prior CVA, right-sided hemiplegia, if he is here, CHF, diabetes mellitus, vascular dementia who is currently a group home resident admitted with: 1) Sepsis: Possibly secondary to urinary tract infection: Empirically on IV Zosyn and vancomycin. We'll DC Zosyn and start IV cefepime. Continue vancomycin. Apparently, Abbott was exchanged in the emergency room. 2) Urinary tract infection: IV antibiotics as above. 3) Gram-positive cocci bacteremia: Continue IV vancomycin. Repeat blood cultures ordered. Follow-up ID and sensitivity. TTE ordered. 4) Acute respiratory failure: Transient and seems to have resolved. 5) Digoxin toxicity: Patient with hyperkalemia and elevated digoxin levels on admission. 6) Advanced dementia: bedbound and non verbal. Poor prognosis, consider palliative care/hospice. Recs: Discontinued Zosyn Started IV cefepime Continue IV vancomycin, with PK based dosing Repeat blood cultures ordered MD [facility] C: [phone] O: [phone] F: [phone]
[2018-05-07] MEDS: MAXIPIME/NS 1 GM/100 ML 1 GM/100 ML BAG IV SCH (22:15)
[2018-05-07] MEDS: VANCOMYCIN 750 MG in NACL 0.9% 250ML 250 ML IV SCH (22:15)
[2018-05-08] MEDS: HumuLIN R SUB-Q SCH ×6 (00:47→23:55)
[2018-05-08] MEDS: REGLAN PO SCH ×6 (00:47→23:51)
[2018-05-08] MEDS: FREE WATER PO SCH ×6 (00:48→23:22)
[2018-05-08] MEDS: DUONEB *Not for PRN Use IH SCH ×4 (02:46→21:39)
[2018-05-08] MEDS: MAXIPIME/NS 1 GM/100 ML 1 GM/100 ML BAG IV SCH ×3 (06:23→21:59)
[2018-05-08] MEDS: SYNTHROID PO SCH (06:24)
[2018-05-08 06:28] LABS: Hematocrit TNR % (30.3-42.9); Hemoglobin TNR gm/dl (10.1-14.3); Mean Corpuscular HGB Conc TNR % (30-34); Mean Corpuscular Volume TNR fl (79-97); Platelet Count TNR K/mm3 (140-440); Red Blood Count TNR M/mm3 (3.65-5.03); Red Cell Distribution Width TNR % (13.2-15.2)
[2018-05-08 06:43] LABS: BUN/Creatinine Ratio 52; Blood Urea Nitrogen 31 mg/dL (7-17); Hemolysis Index 68
--- NOTE | 2018-05-08 08:44 | Progress Note ---
Assessment and Plan Cultures: 05/06/2018 blood culture: One set, both bottles positive for gram-positive cocci 05/06/2018 urine culture: In process A/P: 87-year-old female with prior CVA, right-sided hemiplegia, if he is here, CHF, diabetes mellitus, vascular dementia who is currently a senior living resident admitted with: 1) Sepsis: Possibly secondary to urinary tract infection: Empirically on IV Zosyn and vancomycin. We'll DC Zosyn and start IV cefepime. Continue vancomycin. Apparently, Abbott was exchanged in the emergency room. 2) Urinary tract infection: IV antibiotics as above. 3) Gram-positive cocci bacteremia: Continue IV vancomycin. Repeat blood cultures ordered. Follow-up ID and sensitivity. TTE ordered. 4) Acute respiratory failure: Transient and seems to have resolved. 5) Digoxin toxicity: Patient with hyperkalemia and elevated digoxin levels on admission. 6) Advanced dementia: bedbound and non verbal. Poor prognosis, consider palliative care/hospice. 7) Type 2 diabetes mellitus: uncontrolled Recs: Continue IV cefepime Continue IV vancomycin, with PK based dosing f/u blood cultures CBC ordered for tomorrow [facility] M: [id number] O:[phone] Subjective Date of service: 05/08/18 Interval history: Patient seen and examined. Nonverbal at baseline, alert with intermittent increased WOB, No family at bedside. Objective - Exam Narrative Exam: Physical Exam: Constitutional: awake, non verbal, mild distress observed Head, Ears, Nose: Normocephalic, atraumatic. External ears, nose normal Eyes: Conjunctivae/corneas clear. No icterus. No ptosis. Neck: Supple, no meningeal signs Oral: mucosa dry, tongue coated with plaque Cardiovascular: S1, S2 normal. Respiratory: Good air entry, clear to auscultation bilaterally GI: Soft, non-tender; bowel sounds normal. No peritoneal signs. Gtube + Musculoskeletal: No pedal edema, no cyanosis. Skin: No rash or abscess Hem/Lymphatic: No palpable cervical or supraclavicular nodes. No lymphangitis Psych: no agitation Neurological: awake, non verbal, bedbound - Constitutional Vitals: Vital Signs Temp Pulse Resp BP Pulse Ox 99.4 F 88 18 109/61 98 05/08/18 07:32 05/08/18 08:17 05/08/18 08:17 05/08/18 07:32 05/08/18 08:17 Temperature -Last 24 Hours Temperature 99.4 F Temperature 97.7 F Temperature 98.3 F Temperature 98.9 F Temperature 97.6 F - Labs CBC & Chem 7: 05/08/18 06:07 05/08/18 06:07 Labs: Abnormal lab results 05/07/18 05/07/18 05/08/18 Range/Units 12:02 19:02 00:38 Sodium (137-145) mmol/L Chloride (98-107) mmol/L BUN (7-17) mg/dL Creatinine (0.7-1.2) mg/dL Glucose (65-100) mg/dL POC Glucose 271 H 240 H 257 H (70-105) Calcium (8.4-10.2) mg/dL Magnesium (1.7-2.3) mg/dL Digoxin (0.9-2.0) ng/mL 05/08/18 05/08/18 05/08/18 Range/Units 05:42 06:07 06:07 Sodium 155 H (137-145) mmol/L Chloride 118.3 H (98-107) mmol/L BUN 31 H (7-17) mg/dL Creatinine 0.6 L (0.7-1.2) mg/dL Glucose 245 H (65-100) mg/dL POC Glucose 245 H (70-105) Calcium 7.0 L (8.4-10.2) mg/dL Magnesium 2.40 H (1.7-2.3) mg/dL Digoxin 0.8 L (0.9-2.0) ng/mL
--- NOTE | 2018-05-08 09:14 | Progress Note ---
Assessment and Plan 87 y/o female with dyspnea, now found to be bacteremic, source unknown but suspect urine vs lung 1. Pulm issues have resolved. Will sign off. Call if questions. Subjective Date of service: 05/08/18 Interval history: No acute events. Successful transfer out of ICU to [facility]. Stable. Remains on room air. Objective Vital Signs - 12hr 05/07/18 05/08/18 05/08/18 22:00 01:59 03:27 Temperature 97.7 F Pulse Rate 68 Pulse Rate [ 82 Apical] Pulse Rate [ 82 From Monitor] Respiratory 20 24 Rate Blood Pressure 92/37 Blood Pressure 95/48 [Left] O2 Sat by Pulse 97 Oximetry 05/08/18 05/08/18 05/08/18 03:28 04:00 07:32 Temperature 99.4 F Pulse Rate 108 H 103 H 87 Pulse Rate [ Apical] Pulse Rate [ From Monitor] Respiratory 18 Rate Blood Pressure 109/61 Blood Pressure [Left] O2 Sat by Pulse 97 97 Oximetry 05/08/18 08:17 Temperature Pulse Rate Pulse Rate [ Apical] Pulse Rate [ 88 From Monitor] Respiratory 18 Rate Blood Pressure Blood Pressure [Left] O2 Sat by Pulse 98 Oximetry Constitutional: no acute distress, other (non verbal) Eyes: non-icteric ENT: oropharynx dry Neck: supple Ascultation: Bilateral: clear CBC and BMP: 05/08/18 06:07 05/08/18 06:07 ABG, PT/INR, D-dimer: ABG POC ABG pH 7.478 (7.35-7.45) H 05/06/18 10:46 POC ABG pCO2 28.1 (35-45) L 05/06/18 10:46 POC ABG pO2 164 (80-105) H 05/06/18 10:46 POC ABG HCO3 20.8 05/06/18 10:46 POC ABG Total CO2 22 05/06/18 10:46 POC ABG O2 Sat 100 05/06/18 10:46 Abnormal lab findings: Abnormal Labs 05/06/18 05/06/18 05/06/18 08:25 08:25 08:25 WBC 18.6 H RBC Hgb MCV RDW 19.2 H Plt Count 492 H Lymph % (Auto) 10.7 L [place] # 1.0 H Baso # Seg Neutrophils % 83.9 H Seg Neutrophils # 15.6 H POC ABG pH POC ABG pCO2 POC ABG pO2 Sodium Potassium 6.3 H* Chloride BUN 60 H Creatinine Glucose 291 H POC Glucose Lactic Acid 6.10 H* Calcium Magnesium AST 42 H Troponin T NT-Pro-B Natriuret Pep Albumin 3.0 L Prealbumin Triglycerides HDL Cholesterol Urine WBC (Auto) Digoxin 05/06/18 05/06/18 05/06/18 08:25 09:56 10:37 WBC RBC Hgb MCV RDW Plt Count Lymph % (Auto) [place] # Baso # Seg Neutrophils % Seg Neutrophils # POC ABG pH POC ABG pCO2 POC ABG pO2 Sodium Potassium Chloride BUN Creatinine Glucose POC Glucose Lactic Acid Calcium Magnesium AST Troponin T 0.143 H* NT-Pro-B Natriuret Pep 4756 H Albumin Prealbumin Triglycerides 320 H HDL Cholesterol 32 L Urine WBC (Auto) > 182.0 H Digoxin 2.6 H* 05/06/18 05/06/18 05/06/18 10:46 11:03 11:03 WBC RBC Hgb MCV RDW Plt Count Lymph % (Auto) [place] # Baso # Seg Neutrophils % Seg Neutrophils # POC ABG pH 7.478 H POC ABG pCO2 28.1 L POC ABG pO2 164 H Sodium Potassium Chloride BUN Creatinine Glucose POC Glucose Lactic Acid 2.40 H* Calcium Magnesium 2.70 H AST Troponin T NT-Pro-B Natriuret Pep Albumin Prealbumin 0.111 L Triglycerides HDL Cholesterol Urine WBC (Auto) Digoxin 05/06/18 05/06/18 05/06/18 12:31 15:10 15:10 WBC RBC Hgb MCV RDW Plt Count Lymph % (Auto) [place] # Baso # Seg Neutrophils % Seg Neutrophils # POC ABG pH POC ABG pCO2 POC ABG pO2 Sodium 151 H Potassium Chloride 109.2 H BUN 57 H Creatinine Glucose 307 H POC Glucose 355 H Lactic Acid Calcium 8.3 L Magnesium AST Troponin T 0.099 H NT-Pro-B Natriuret Pep Albumin Prealbumin Triglycerides HDL Cholesterol Urine WBC (Auto) Digoxin 05/06/18 05/06/18 05/06/18 15:10 15:52 16:17 WBC RBC Hgb MCV RDW Plt Count Lymph % (Auto) [place] # Baso # Seg Neutrophils % Seg Neutrophils # POC ABG pH POC ABG pCO2 POC ABG pO2 Sodium Potassium Chloride BUN Creatinine Glucose POC Glucose 295 H Lactic Acid 5.00 H* 5.30 H* Calcium Magnesium AST Troponin T NT-Pro-B Natriuret Pep Albumin Prealbumin Triglycerides HDL Cholesterol Urine WBC (Auto) Digoxin 05/06/18 05/07/18 05/07/18 21:29 00:09 04:28 WBC 18.2 H RBC 3.11 L Hgb 9.3 L MCV 98 H RDW 20.0 H Plt Count Lymph % (Auto) 9.3 L [place] # Baso # 0.2 H Seg Neutrophils % 85.0 H Seg Neutrophils # 15.4 H POC ABG pH POC ABG pCO2 POC ABG pO2 Sodium Potassium Chloride BUN Creatinine Glucose POC Glucose 318 H Lactic Acid Calcium Magnesium AST Troponin T 0.079 H D NT-Pro-B Natriuret Pep Albumin Prealbumin Triglycerides HDL Cholesterol Urine WBC (Auto) Digoxin 05/07/18 05/07/18 05/07/18 04:28 04:28 07:48 WBC RBC Hgb MCV RDW Plt Count Lymph % (Auto) [place] # Baso # Seg Neutrophils % Seg Neutrophils # POC ABG pH POC ABG pCO2 POC ABG pO2 Sodium 155 H Potassium 3.0 L D Chloride 116.9 H BUN 46 H Creatinine Glucose 280 H POC Glucose 296 H Lactic Acid Calcium 7.4 L Magnesium AST Troponin T 0.068 H NT-Pro-B Natriuret Pep Albumin Prealbumin Triglycerides HDL Cholesterol Urine WBC (Auto) Digoxin 05/07/18 05/07/18 05/08/18 12:02 19:02 00:38 WBC RBC Hgb MCV RDW Plt Count Lymph % (Auto) [place] # Baso # Seg Neutrophils % Seg Neutrophils # POC ABG pH POC ABG pCO2 POC ABG pO2 Sodium Potassium Chloride BUN Creatinine Glucose POC Glucose 271 H 240 H 257 H Lactic Acid Calcium Magnesium AST Troponin T NT-Pro-B Natriuret Pep Albumin Prealbumin Triglycerides HDL Cholesterol Urine WBC (Auto) Digoxin 05/08/18 05/08/18 05/08/18 05:42 06:07 06:07 WBC RBC Hgb MCV RDW Plt Count Lymph % (Auto) [place] # Baso # Seg Neutrophils % Seg Neutrophils # POC ABG pH POC ABG pCO2 POC ABG pO2 Sodium 155 H Potassium Chloride 118.3 H BUN 31 H Creatinine 0.6 L Glucose 245 H POC Glucose 245 H Lactic Acid Calcium 7.0 L Magnesium 2.40 H AST Troponin T NT-Pro-B Natriuret Pep Albumin Prealbumin Triglycerides HDL Cholesterol Urine WBC (Auto) Digoxin 0.8 L
[2018-05-08] MEDS: ARICEPT PO SCH (09:59)
[2018-05-08] MEDS: FEOSOL PO SCH (09:59)
[2018-05-08] MEDS: PREVACID SOLUTAB FEEDTUBE SCH (09:59)
[2018-05-08] MEDS: PROAMATINE PO SCH ×3 (10:00→15:51)
--- NOTE | 2018-05-08 11:18 | Progress Note ---
Assessment and Plan Optimize HR - initiate IV amio in setting of borderline hypotension. For repeat transthoracic echo per ID insetting of bacteremia. No systemic AC secondary to GI bleed and advanced dementia. The patient has been seen in conjunction with Dr. Brenda Mccarthy who agrees with the assessment and plan of care. - Patient Problems (1) Atrial fibrillation with RVR Current Visit: Yes Status: Acute (2) Elevated digoxin level Current Visit: Yes Status: Acute (3) Acute respiratory failure Current Visit: Yes Status: Acute (4) Sepsis Current Visit: Yes Status: Acute (5) Bacteremia Current Visit: Yes Status: Acute (6) Pneumonia Current Visit: Yes Status: Suspected (7) UTI (urinary tract infection) Current Visit: Yes Status: Acute Qualifiers: Urinary tract infection type: site unspecified Hematuria presence: without hematuria Qualified Code(s): N39.0 - Urinary tract infection, site not specified (8) History of CVA (cerebrovascular accident) Current Visit: Yes Status: Chronic (9) History of GI bleed Current Visit: Yes Status: Chronic (10) Diabetes Current Visit: Yes Status: Chronic (11) Hyperkalemia Current Visit: Yes Status: Acute (12) Dementia Current Visit: Yes Status: Chronic Subjective Date of service: 05/08/18 Principal diagnosis: afib Interval history: pt resting in bed, lethargic, nonverbal, no apparent distress. tele reviewed in AFib with bouts of RVR overnight. BPs borderline hypotensive. Objective Last Vital Signs Temp 99.4 F 05/08/18 07:32 Pulse 88 05/08/18 08:17 Resp 18 05/08/18 08:17 BP 109/61 05/08/18 07:32 Pulse Ox 98 05/08/18 08:17 - Physical Examination General: Other (lethargic, nonverbal) Neck: Positive: neck supple, trachea midline Cardiac: Positive: irregularly irregular, S1/S2 Lungs: Positive: Decreased Breath Sounds Neuro: Positive: Other (lethargic, nonverbal, unable to assess) Skin: Negative: Rash Musculoskeletal: No Pain Extremities: Absent: edema - Labs and Meds CBC 05/08/18 Range/Units 06:07 WBC TNR RBC TNR Hgb TNR Hct TNR Plt Count TNR Comprehensive Metabolic Panel 05/08/18 Range/Units 06:07 Sodium 155 H (137-145) mmol/L Potassium 4.2 D (3.6-5.0) mmol/L Chloride 118.3 H (98-107) mmol/L Carbon Dioxide 23 (22-30) mmol/L BUN 31 H (7-17) mg/dL Creatinine 0.6 L (0.7-1.2) mg/dL Glucose 245 H (65-100) mg/dL Calcium 7.0 L (8.4-10.2) mg/dL - Imaging and Cardiology EKG: report reviewed, image reviewed Echo: report reviewed (04/09/18 showed EF 50-55%, mild LVH. 07/2016 showed EF 50- 55%, mild LVH, abnormal diastolic function, LA mild to mod dilated, mild MR, mod TR, RVSP 41mmHg.) - Telemetry EKG Rhythm: Atrial Fibrillation
[2018-05-08] MEDS ORDERED: SIMPLE SYRUP FEEDTUBE PRN ×2 (11:36)
[2018-05-08] MEDS ORDERED: SODIUM BICARBONATE FEEDTUBE PRN (11:36)
[2018-05-08] MEDS ORDERED: PANCREAZE DR 10,500 UNIT FEEDTUBE PRN (11:36)
[2018-05-08] MEDS ORDERED: CORDARONE 150 MG in D5W 97 ML IV ONE (12:30)
[2018-05-08 14:45] LABS: Hematocrit 28.1 % (30.3-42.9); Hemoglobin 8.8 gm/dl (10.1-14.3); Mean Corpuscular HGB Conc 31 % (30-34); Mean Corpuscular Volume 92 fl (79-97); Platelet Count 278 K/mm3 (140-440); Red Blood Count 3.06 M/mm3 (3.65-5.03)
--- NOTE | 2018-05-08 14:53 | Progress Note ---
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 Hospice was recommended but not chosen. Now, she presents back to [facility] ED with SOB, elevated temperature, hypotension and potassium level of 6.3. She has been admitted to the ICU. Clinically, patie nt looks gravely ill. * pCXR Impression: Interval improvement of CHF but new patch opacities in the right lung base are suspicious for pneumonia. * UA with >180 WBC and positive LE /Acute respiratory failure, likely from PNA most likely from aspiration - duo nebs, bipap as needed, start iv abx, consulted pulmonary /Severe sepsis - could be from PNA +/- UTI, also order blood cx, obtain UA, ordered ua culture after abx started - cont empiric abx for now - on midrodine outpt, will resume - bp did respond to ivf, so no shock - consulted ID /Right LL PNA - from aspiration - cont abx for now - consulted ID /Elevated troponin, chronically elevated - 2d echo a month ago showed preserved Ef, cont to trend, start aspirin and statin - consulted Cardiology /Hyperkalemia - ordered insulin/D50/kayexalate/bicarbonate/calcium chloride - now low, will replace and monitor closely /hypernatremia - on d5 normal saline. will adjust /Severe dementia, supportive care, cont aricept /A. fib now RVR off anticoagulation due to h/o GI bleed /History of CVA with residual right sided weakness and status post PEG placement PEG care, tube feeding per protocol, cont aspirin and statin /Anemia, with h/o GI bleed, monitor H/H /H/o Hypertension; now hypotensive /Dyslipidemia, cont statin /Type 2 diabetes mellitus, Accu-Chek sliding scale coverage and TF diet and insulin as needed /Hypothyroidism; continue Synthroid closely monitor /DVT prophylaxis; lovenox /Code; full CODE STATUS Very poor prognosis, need discussion with the family patients condition,treatment plan D/W son Verónica transfer to telemetry for Afib rvr to start iv amiodarone CCT 31 minutes History Interval history: Patient was seen and examined. Follow-up on current diagnosis of respiratory failure and hypotension. Patient is nonverbal at bedside. Imaging, nursing note, chart, labs and old chart reviewed. Discussed with family at bedside. Hospitalist Physical - Physical exam Narrative exam: Gen: gravely ill, moderate increase in accessory muscles, eyes opened but not focus, green Vm HEENT: NCAT, EOMI, PERRL, OP dry Neck: supple, no adenopathy, no thyromegaly, no JVD CVS/Heart: Regular tachycardia normal S1S2, pulses present bilaterally Chest/Lungs: diminished bs bilaterally, Symmetrical chest expansion, poor air entry bilaterally GI/Abdomen: soft, NTND, good bowel sounds, no guarding or rebound /Bladder: no suprapubic tenderness, no CVA or paraspinal tenderness Extermity/Skin: no c/c/e, no obvious rash MSK: contracted and atrophic legs without movement Neuro: CN 2-12 grossly intact, no new focal deficits Psych: nonverbal, appears confused and unfocused - Constitutional Vitals: Temp Pulse Resp BP Pulse Ox 99.4 F 115 H 18 109/61 100 05/08/18 07:32 05/08/18 13:41 05/08/18 08:17 05/08/18 07:32 05/08/18 13:41 General appearance: Present: other (lethargic, nonverbal) Results - Labs CBC & Chem 7: 05/08/18 14:18 05/08/18 06:07 Labs: Laboratory Last Values WBC 16.1 K/mm3 (4.5-11.0) H 05/08/18 14:18 RBC 3.06 M/mm3 (3.65-5.03) L 05/08/18 14:18 Hgb 8.8 gm/dl (10.1-14.3) L 05/08/18 14:18 Hct 28.1 % (30.3-42.9) L 05/08/18 14:18 MCV 92 fl (79-97) 05/08/18 14:18 MCH 29 pg (28-32) 05/08/18 14:18 MCHC 31 % (30-34) 05/08/18 14:18 RDW 19.0 % (13.2-15.2) H 05/08/18 14:18 Plt Count 278 K/mm3 (140-440) 05/08/18 14:18 Lymph % (Auto) 9.3 % (13.4-35.0) L 05/07/18 04:28 [place] % (Auto) 4.6 % (0.0-7.3) 05/07/18 04:28 Eos % (Auto) 0.1 % (0.0-4.3) 05/07/18 04:28 Baso % (Auto) 1.0 % (0.0-1.8) 05/07/18 04:28 Lymph # 1.7 K/mm3 (1.2-5.4) 05/07/18 04:28 [place] # 0.8 K/mm3 (0.0-0.8) 05/07/18 04:28 Eos # 0.0 K/mm3 (0.0-0.4) 05/07/18 04:28 Baso # 0.2 K/mm3 (0.0-0.1) H 05/07/18 04:28 Seg Neutrophils % 85.0 % (40.0-70.0) H 05/07/18 04:28 Seg Neutrophils # 15.4 K/mm3 (1.8-7.7) H 05/07/18 04:28 APTT 27.6 Sec. (24.2-36.6) 05/06/18 08:25 POC ABG pH 7.478 (7.35-7.45) H 05/06/18 10:46 POC ABG pCO2 28.1 (35-45) L 05/06/18 10:46 POC ABG pO2 164 (80-105) H 05/06/18 10:46 POC ABG HCO3 20.8 05/06/18 10:46 POC ABG Total CO2 22 05/06/18 10:46 POC ABG O2 Sat 100 05/06/18 10:46 POC ABG Base Excess -3 05/06/18 10:46 FiO2 35 % 05/06/18 10:46 Sodium 155 mmol/L (137-145) H 05/08/18 06:07 Potassium 4.2 mmol/L (3.6-5.0) D 05/08/18 06:07 Chloride 118.3 mmol/L (98-107) H 05/08/18 06:07 Carbon Dioxide 23 mmol/L (22-30) 05/08/18 06:07 Anion Gap 18 mmol/L 05/08/18 06:07 BUN 31 mg/dL (7-17) H 05/08/18 06:07 Creatinine 0.6 mg/dL (0.7-1.2) L 05/08/18 06:07 Estimated GFR > 60 ml/min 05/08/18 06:07 BUN/Creatinine Ratio 52 % 05/08/18 06:07 Glucose 245 mg/dL (65-100) H 05/08/18 06:07 POC Glucose 253 (70-105) H 05/08/18 11:21 Lactic Acid 5.30 mmol/L (0.7-2.0) H* 05/06/18 16:17 Calcium 7.0 mg/dL (8.4-10.2) L 05/08/18 06:07 Phosphorus 3.30 mg/dL (2.5-4.5) 05/06/18 11:03 Magnesium 2.40 mg/dL (1.7-2.3) H 05/08/18 06:07 Total Bilirubin 0.30 mg/dL (0.1-1.2) 05/06/18 08:25 AST 42 units/L (5-40) H 05/06/18 08:25 ALT 34 units/L (7-56) 05/06/18 08:25 Alkaline Phosphatase 93 units/L (35-129) 05/06/18 08:25 Troponin T 0.068 ng/mL (0.00-0.029) H 05/07/18 04:28 NT-Pro-B Natriuret Pep 4756 pg/mL (0-900) H 05/06/18 08:25 Total Protein 7.9 g/dL (6.3-8.2) 05/06/18 08:25 Albumin 3.0 g/dL (3.9-5) L 05/06/18 08:25 Albumin/Globulin Ratio 0.6 % 05/06/18 08:25 Prealbumin 0.111 g/L (0.200-0.400) L 05/06/18 11:03 Triglycerides 320 mg/dL (2-149) H 05/06/18 08:25 Cholesterol 124 mg/dL (50-199) 05/06/18 08:25 LDL Cholesterol Direct 52 mg/dL (50-130) 05/06/18 08:25 HDL Cholesterol 32 mg/dL (40-59) L 05/06/18 08:25 Cholesterol/HDL Ratio 3.87 % 05/06/18 08:25 Urine Color Yellow (Yellow) 05/06/18 10:37 Urine Turbidity Turbid (Clear) 05/06/18 10:37 Urine pH 7.0 (5.0-7.0) 05/06/18 10:37 Ur Specific [place] 1.008 (1.003-1.030) 05/06/18 10:37 Urine Protein 100 mg/dl mg/dL (Negative) 05/06/18 10:37 Urine Glucose (UA) Neg mg/dL (Negative) 05/06/18 10:37 Urine Ketones Neg mg/dL (Negative) 05/06/18 10:37 Urine Blood Mod (Negative) 05/06/18 10:37 Urine Nitrite Neg (Negative) 05/06/18 10:37 Urine Bilirubin Neg (Negative) 05/06/18 10:37 Urine Urobilinogen < 2.0 mg/dL (<2.0) 05/06/18 10:37 Ur Leukocyte Esterase Mod (Negative) 05/06/18 10:37 Urine WBC (Auto) > 182.0 /HPF (0.0-6.0) H 05/06/18 10:37 Urine RBC (Auto) 56.0 /HPF (0.0-6.0) 05/06/18 10:37 U Epithel Cells (Auto) 7.0 /HPF (0-13.0) 05/06/18 10:37 Urine Bacteria (Auto) 4+ /HPF (Negative) 05/06/18 10:37 Urine WBC Clumps 3+ /HPF 05/06/18 10:37 Urine Mucus 3+ /HPF 05/06/18 10:37 Digoxin 0.8 ng/mL (0.9-2.0) L 05/08/18 06:07 Nutrition/Malnutrition Assess - Dietary Evaluation Nutrition/Malnutrition Findings: Nutrition Notes Start: 05/06/18 15:02 Freq: Status: Active Protocol: Document 05/08/18 09:22 TW (Rec: 05/08/18 10:36 TW [id number]) Co-Sign 05/08/18 09:22 RM Nutrition Notes Initial or Follow up Reassessment Current Diagnosis Diabetes Sepsis Hypertension Respiratory Failure Stroke Other Pertinent Diagnosis RLL pneu, severe dementia, sacral wound Current Diet Glucerna 1.2 at 45 ml/hr Labs/Tests Na:155 K: 4.2 BUN: 31 B M.4 Pertinent Medications D5 NS at 75ml/hr, Feosol Height 5 ft Weight 48.9 kg [place] Body Weight (kg) 45.45 BMI 21.0 Subjective/Other Information Observed Glucerna 1.2 running at goal rate (45 ml/hr). Per RN, pt tolerating TF well with no residual. Percent of energy/protein needs met: 88%/100% Burn Absent Trauma Absent #1 Nutrition Diagnosis Inadequate oral intake Diagnosis Progress(for reassessment Continues documentation) Is patient on ventilator? No Is Patient Ambulatory and/or Out of Bed No REE-([facility]-confined to bed) 1016.460 Kcal/Kg value to use for calculation 30 Approximate Energy Requirements Using 1467 kcal/Kg Calculation Used for Recommendations Kcal/kg Additional Notes Pro needs 1.5-1.7g/k-83g/ day Fluid needs 1ml/kcal Nutrition Intervention Nutrition Support: Glucerna 1.2 at 45ml/hr with 150ml water flush q4h until hypernatremia resolves. Water flush of 75 ml q4h after resolved. Kcal 1,296 Protein (gm) 65 Carbohydrates (gm) 124 Fat (gm) 65 Fluid (mL) 869 Fiber (gm) 17 Goal #1 TF tolerance Goal #2 TF to continue to meet at least 75% of energy and pro needs Anticipated Discharge Needs: Continue Glucerna 1.2 (or equivalent) at 45ml/hr with 75ml water flush q4h Follow-Up By: 05/11/18 Additional Comments F/U: stable TF, Na level
[2018-05-08] MEDS: D5/0.45NS 1,000 ML IV SCH (15:51)
[2018-05-08] MEDS: PRAVACHOL PO SCH (22:01)
[2018-05-08] MEDS: CORDARONE 900 MG in D5W 482 ML IV SCH (23:52)
[2018-05-08] MEDS: VANCOMYCIN 750 MG in NACL 0.9% 250ML 250 ML IV SCH (23:52)
[2018-05-09 00:43] LABS: Hematocrit 26.1 % (30.3-42.9); Hemoglobin 8.2 gm/dl (10.1-14.3); Mean Corpuscular HGB Conc 32 % (30-34); Mean Corpuscular Volume 90 fl (79-97); Red Cell Distribution Width 18.6 % (13.2-15.2)
[2018-05-09 00:45] LABS: Platelet Count 210 K/mm3 (140-440)
[2018-05-09] MEDS: DUONEB *Not for PRN Use IH SCH ×4 (02:00→20:33)
[2018-05-09 02:06] LABS: Band Neutrophils # (Manual) 0.3 K/mm3; Basophils % (Manual) 0 % (0.0-1.8); Eosinophils % (Manual) 0 % (0.0-4.3); Monocytes % (Manual) 0 % (0.0-7.3); Total Cells Counted 100
[2018-05-09 02:07] LABS: Anisocytosis 1+; Hypochromasia 1+; Ovalocytes 2+; Target Cells 1+
[2018-05-09 05:43] LABS: Hematocrit 24.5 % (30.3-42.9); Hemoglobin 7.7 gm/dl (10.1-14.3); Mean Corpuscular HGB Conc 32 % (30-34); Mean Corpuscular Volume 91 fl (79-97); Platelet Count 265 K/mm3 (140-440); Red Blood Count 2.69 M/mm3 (3.65-5.03); Red Cell Distribution Width 18.4 % (13.2-15.2)
[2018-05-09] MEDS: D5/0.45NS 1,000 ML IV SCH ×2 (05:57→21:09)
[2018-05-09] MEDS: MAXIPIME/NS 1 GM/100 ML 1 GM/100 ML BAG IV SCH (05:57)
[2018-05-09] MEDS: SYNTHROID PO SCH (05:58)
[2018-05-09] MEDS: REGLAN PO SCH ×3 (05:58→17:07)
[2018-05-09] MEDS: FREE WATER PO SCH ×2 (05:58→11:54)
[2018-05-09 06:04] LABS: BUN/Creatinine Ratio 42; Blood Urea Nitrogen 21 mg/dL (7-17); Hemolysis Index 6
[2018-05-09] MEDS: HumuLIN R SUB-Q SCH ×3 (07:18→18:34)
[2018-05-09] MEDS: PROAMATINE PO SCH ×3 (08:00→16:55)
--- NOTE | 2018-05-09 09:42 | Progress Note ---
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 We'll DC Zosyn and start IV cefepime. Continue vancomycin. Apparently, Abbott was exchanged in the emergency room. 2) Urinary tract infection: IV antibiotics as above. 3) Enteroccocus Avium Bacteremia: Continue IV vancomycin. F/u repeat blood cultures. . Follow-up ID and sensitivity. TTE limited, but shows no valvular vegetation 4) Acute respiratory failure: Transient and seems to have resolved. 5) Digoxin toxicity: Patient with hyperkalemia and elevated digoxin levels on admission. 6) Advanced dementia: bedbound and non verbal. Poor prognosis, consider palliative care/hospice. 7) Type 2 diabetes mellitus: uncontrolled Recs: Discontinue IV cefepime Start Unasyn 1.5 gms q 6 Continue IV vancomycin, with PK based dosing f/u blood cultures [employer] M: [phone] O:[phone] Subjective Date of service: 05/09/18 Principal diagnosis: afib Interval history: Patient seen and examined. Nonverbal at baseline, alert with agitation today. Nurse at bedside. Objective - Exam Narrative Exam: Physical Exam: Constitutional: awake, non verbal, agitated mild distress observed Head, Ears, Nose: Normocephalic, atraumatic. External ears, nose normal Eyes: Conjunctivae/corneas clear. No icterus. No ptosis. Neck: Supple, no meningeal signs Oral: mucosa dry, tongue coated with plaque Cardiovascular: S1, S2 normal. Respiratory: Good air entry, clear to auscultation bilaterally GI: Soft, non-tender; bowel sounds normal. No peritoneal signs. Gtube + Musculoskeletal: No pedal edema, no cyanosis. Skin: No rash or abscess Hem/Lymphatic: No palpable cervical or supraclavicular nodes. No lymphangitis Psych: + agitation Neurological: awake, non verbal, bedbound - Constitutional Vitals: Vital Signs Temp Pulse Resp BP Pulse Ox 99.5 F 126 H 18 126/73 94 05/09/18 08:44 05/09/18 08:44 05/09/18 08:44 05/09/18 08:44 05/09/18 08:44 Temperature -Last 24 Hours Temperature 99.5 F Temperature 98.0 F Temperature 98 F Temperature 100.1 F Temperature 99.9 F - Labs CBC & Chem 7: 05/09/18 05:09 05/09/18 05:15 Labs: Abnormal lab results 05/08/18 05/08/18 05/08/18 Range/Units 11:21 14:18 18:09 WBC 16.1 H (4.5-11.0) K/mm3 RBC 3.06 L (3.65-5.03) M/mm3 Hgb 8.8 L (10.1-14.3) gm/dl Hct 28.1 L (30.3-42.9) % RDW 19.0 H (13.2-15.2) % Seg Neuts % (Manual) (40.0-70.0) % Lymphocytes % (Manual) (13.4-35.0) % Seg Neutrophils # Man (1.8-7.7) K/mm3 Chloride (98-107) mmol/L Carbon Dioxide (22-30) mmol/L BUN (7-17) mg/dL Creatinine (0.7-1.2) mg/dL Glucose (65-100) mg/dL POC Glucose 253 H 225 H (70-105) Calcium (8.4-10.2) mg/dL 05/08/18 05/09/18 05/09/18 Range/Units 23:31 00:17 05:09 WBC 16.6 H 13.9 H (4.5-11.0) K/mm3 RBC 2.90 L 2.69 L (3.65-5.03) M/mm3 Hgb 8.2 L 7.7 L (10.1-14.3) gm/dl Hct 26.1 L 24.5 L (30.3-42.9) % RDW 18.6 H 18.4 H (13.2-15.2) % Seg Neuts % (Manual) 83.0 H (40.0-70.0) % Lymphocytes % (Manual) 13.0 L (13.4-35.0) % Seg Neutrophils # Man 13.8 H (1.8-7.7) K/mm3 Chloride (98-107) mmol/L Carbon Dioxide (22-30) mmol/L BUN (7-17) mg/dL Creatinine (0.7-1.2) mg/dL Glucose (65-100) mg/dL POC Glucose 178 H (70-105) Calcium (8.4-10.2) mg/dL 05/09/18 05/09/18 Range/Units 05:15 06:19 WBC (4.5-11.0) K/mm3 RBC (3.65-5.03) M/mm3 Hgb (10.1-14.3) gm/dl Hct (30.3-42.9) % RDW (13.2-15.2) % Seg Neuts % (Manual) (40.0-70.0) % Lymphocytes % (Manual) (13.4-35.0) % Seg Neutrophils # Man (1.8-7.7) K/mm3 Chloride 112.3 H (98-107) mmol/L Carbon Dioxide 20 L (22-30) mmol/L BUN 21 H (7-17) mg/dL Creatinine 0.5 L (0.7-1.2) mg/dL Glucose 236 H (65-100) mg/dL POC Glucose 250 H (70-105) Calcium 7.0 L (8.4-10.2) mg/dL
--- NOTE | 2018-05-09 11:25 | Consultation ---
History of Present Illness Consult date: 05/09/18 Reason for consult: wound care Requesting physician: ANABELL EMERY Chief complaint: sacral wound - History of present illness History of present illness: 87yo F with dementia was recently admitted from the long term with difficulty breathing and elevated temperature. Patient unable to give any history. Wound care nurse requested surgical consult for sacral wound. Past History Past Medical History: other (as per HPI) Past Surgical History: Other (unable to obtain) Social history: other (unable to obtain, lives in long term) Family history: other (unable to obtain) Medications and Allergies Allergies Allergy/AdvReac Type Severity Reaction Status Date / Time No Known Allergies Allergy Verified 04/08/18 02:43 Home Medications Medication Instructions Recorded Confirmed Last Taken Type Docusate Sodium [Colace CAP] 100 mg PO BID PRN 06/18/16 05/06/18 04/07/18 H istory Levothyroxine [Synthroid] 75 mcg PO DAILY@0600 #30 tablet 08/12/16 05/06/18 04/07/18 Rx Digoxin [Lanoxin] 0.125 mg PO DAILY 04/08/18 05/06/18 04/07/18 History Lisinopril [Prinivil] 5 mg PO DAILY 04/08/18 05/06/18 04/07/18 History Metoclopramide HCl 5 mg PO Q6HR 04/08/18 05/06/18 04/07/18 History Metoprolol Tartrate 25 mg PO DAILY 04/08/18 05/06/18 04/07/18 History Potassium Chloride [Klor-Con] 20 meq PO DAILY 04/08/18 05/06/18 04/07/18 History Simvastatin 40 mg PO DAILY 04/08/18 05/06/18 04/07/18 History Torsemide [Demadex] 20 mg PO DAILY 04/08/18 05/06/18 04/07/18 History Calcium Carbonate [Oscal] 1,250 mg PO TID #90 tablet 04/17/18 05/06/18 Unknown Rx Donepezil [Aricept] 5 mg PO QDAY tablet 04/17/18 05/06/18 Unknown Rx Ferrous Sulfate [Feosol 325 MG tab] 325 mg PO QDAY tablet 04/17/18 05/06/18 Unknown Rx Insulin Regular, Human [HumuLIN R] 0 unit SQ AC #1 vial 04/17/18 05/06/18 Unknown Rx Ipratropium/Albuterol Sulfate 1 ampul IH BIDRT ampul.neb 04/17/18 05/06/18 Unknown Rx [DUONEB *Not for PRN Use*] Lipase/Protease/Amylase [Pancreaze 1 each FEEDTUBE PRN PRN capsule 04/17/18 05/06/18 Unknown Rx 10,500 Unit] Loperamide [Imodium] 2 mg PO Q2H PRN capsule 04/17/18 05/06/18 Unknown Rx Midodrine [Proamatine] 5 mg PO TID@0800,1200,1600 #90 04/17/18 05/06/18 Unknown Rx tablet Aspirin [Adult Aspirin] 81 mg PO DAILY 05/06/18 05/06/18 Unknown History Active Meds: Active Medications Acetaminophen (Tylenol) 650 mg PO Q4H PRN PRN Reason: Pain, Mild (1-3) Albuterol/Ipratropium (Duoneb *Not For Prn Use*) 1 ampul IH Q6HRT [facility] Last Admin: 05/09/18 08:05 Dose: 1 ampul Documented by: Lipase/Protease/Amylase (Pancrealexander Del Real 10,500 Unit) 1 each FEEDTUBE PRN PRN PRN Reason: For Clogged Feeding Tube Docusate Sodium (Colace) 100 mg PO BID PRN PRN Reason: Constipation Donepezil HCl (Aricept) 5 mg PO QDAY [facility] Last Admin: 05/08/18 09:59 Dose: 5 mg Documented by: Ferrous Sulfate (Feosol) 325 mg PO QDAY [facility] Last Admin: 05/08/18 09:59 Dose: 325 mg Documented by: Vancomycin HCl 750 mg/ Sodium (Chloride) 265 mls @ 166.667 mls/hr IV Q24H [facility] Last Admin: 05/08/18 23:52 Dose: 166.667 mls/hr Documented by: Dextrose/Sodium Chloride (D5/0.45ns) 1,000 mls @ 100 mls/hr IV DIRECT [facility] Last Admin: 05/09/18 05:57 Dose: 100 mls/hr Documented by: Cefepime HCl (Maxipime/Ns 1 Gm/100 Ml) 1 gm in 100 mls @ 200 mls/hr IV Q8HR [facility]; Protocol Last Admin: 05/09/18 05:57 Dose: 200 mls/hr Documented by: Amiodarone HCl 900 mg/ (Dextrose) 500 mls @ 33.33 mls/hr IV DIRECT [facility]; P rotocol Last Admin: 05/08/18 23:52 Dose: 1 mg/min, 33.33 mls/hr Documented by: Insulin Human Regular (Humulin R) 0 units SUB-Q Q6HR [facility]; Protocol Last Admin: 05/09/18 07:18 Dose: 3 units Documented by: Lansoprazole (Prevacid Solutab) 30 mg FEEDTUBE QDAY [facility] Last Admin: 05/08/18 09:59 Dose: 30 mg Documented by: Levothyroxine Sodium (Synthroid) 75 mcg PO DAILY@0600 [facility] Last Admin: 05/09/18 05:58 Dose: 75 mcg Documented by: Metoclopramide HCl (Reglan) 5 mg PO Q6HR [facility] Last Admin: 05/09/18 05:58 Dose: 5 mg Documented by: Midodrine (Proamatine) 5 mg PO TID@0800,1200,1600 [facility] Last Admin: 05/08/18 15:51 Dose: 5 mg Documented by: Pravastatin Sodium (Pravachol) 80 mg PO QHS [facility] Last Admin: 05/08/18 22:01 Dose: 80 mg Documented by: Simple Syrup (Simple Syrup) 15 ml FEEDTUBE PRN PRN PRN Reason: Hypoglycemia Simple Syrup (Simple Syrup) 30 ml FEEDTUBE PRN PRN PRN Reason: Hypoglycemia Sodium Bicarbonate (Sodium Bicarbonate) 325 mg FEEDTUBE PRN PRN PRN Reason: For Clogged Feeding Tube Review of Systems ROS unobtainable: due to mental status Exam Vital Signs Pulse Ox 99 05/06/18 08:02 - General physical appearance Positive: no distress, no pain, other (patient is awake. She is not interactive.) - Respiratory Positive: normal expansion, normal respiratory effort, clear to auscultation - Cardiovascular Rhythm: regular - Integumentary other (5 x 6 cm necrotic wound located over the low back/sacral area. There is fluid underneath the necrotic tissue. There is no erythema. There is no drainage.) Results - Labs 05/09/18 05:09 05/09/18 05:15 Abnormal lab results 02/13/19 02/13/19 02/13/19 Range/Units 11:21 14:18 18:09 WBC 16.1 H (4.5-11.0) K/mm3 RBC 3.06 L (3.65-5.03) M/mm3 Hgb 8.8 L (10.1-14.3) gm/dl Hct 28.1 L (30.3-42.9) % RDW 19.0 H (13.2-15.2) % Seg Neuts % (Manual) (40.0-70.0) % Lymphocytes % (Manual) (13.4-35.0) % Seg Neutrophils # Man (1.8-7.7) K/mm3 Chloride (98-107) mmol/L Carbon Dioxide (22-30) mmol/L BUN (7-17) mg/dL Creatinine (0.7-1.2) mg/dL Glucose (65-100) mg/dL POC Glucose 253 H 225 H (70-105) Calcium (8.4-10.2) mg/dL 05/08/18 05/09/18 05/09/18 Range/Units 23:31 00:17 05:09 WBC 16.6 H 13.9 H (4.5-11.0) K/mm3 RBC 2.90 L 2.69 L (3.65-5.03) M/mm3 Hgb 8.2 L 7.7 L (10.1-14.3) gm/dl Hct 26.1 L 24.5 L (30.3-42.9) % RDW 18.6 H 18.4 H (13.2-15.2) % Seg Neuts % (Manual) 83.0 H (40.0-70.0) % Lymphocytes % (Manual) 13.0 L (13.4-35.0) % Seg Neutrophils # Man 13.8 H (1.8-7.7) K/mm3 Chloride (98-107) mmol/L Carbon Dioxide (22-30) mmol/L BUN (7-17) mg/dL Creatinine (0.7-1.2) mg/dL Glucose (65-100) mg/dL POC Glucose 178 H (70-105) Calcium (8.4-10.2) mg/dL 05/09/18 05/09/18 Range/Units 05:15 06:19 WBC (4.5-11.0) K/mm3 RBC (3.65-5.03) M/mm3 Hgb (10.1-14.3) gm/dl Hct (30.3-42.9) % RDW (13.2-15.2) % Seg Neuts % (Manual) (40.0-70.0) % Lymphocytes % (Manual) (13.4-35.0) % Seg Neutrophils # Man (1.8-7.7) K/mm3 Chloride 112.3 H (98-107) mmol/L Carbon Dioxide 20 L (22-30) mmol/L BUN 21 H (7-17) mg/dL Creatinine 0.5 L (0.7-1.2) mg/dL Glucose 236 H (65-100) mg/dL POC Glucose 250 H (70-105) Calcium 7.0 L (8.4-10.2) mg/dL Diabetes panel 05/09/18 Range/Units 05:15 Sodium 144 D (137-145) mmol/L Potassium 3.7 (3.6-5.0) mmol/L Chloride 112.3 H (98-107) mmol/L Carbon Dioxide 20 L (22-30) mmol/L BUN 21 H (7-17) mg/dL Creatinine 0.5 L (0.7-1.2) mg/dL Glucose 236 H (65-100) mg/dL Calcium 7.0 L (8.4-10.2) mg/dL Calcium panel 05/09/18 Range/Units 05:15 Calcium 7.0 L (8.4-10.2) mg/dL Pituitary panel 05/09/18 Range/Units 05:15 Sodium 144 D (137-145) mmol/L Potassium 3.7 (3.6-5.0) mmol/L Chloride 112.3 H (98-107) mmol/L Carbon Dioxide 20 L (22-30) mmol/L BUN 21 H (7-17) mg/dL Creatinine 0.5 L (0.7-1.2) mg/dL Glucose 236 H (65-100) mg/dL Calcium 7.0 L (8.4-10.2) mg/dL Adrenal panel 02/14/19 Range/Units 05:15 Sodium 144 D (137-145) mmol/L Potassium 3.7 (3.6-5.0) mmol/L Chloride 112.3 H (98-107) mmol/L Carbon Dioxide 20 L (22-30) mmol/L BUN 21 H (7-17) mg/dL Creatinine 0.5 L (0.7-1.2) mg/dL Glucose 236 H (65-100) mg/dL Calcium 7.0 L (8.4-10.2) mg/dL Assessment and Plan - Patient Problems (1) Unstageable pressure ulcer of sacral region Current Visit: Yes Status: Acute Plan to address problem: Pt stable. Patient in need of debridement. I think we will be better able to clean the wound in the operating room. Patient unable to give consent due to severe dementia. Son was available for consent. Procedure, risks, benefits were discussed with son. All questions were answered. Consent was obtained. We will try to schedule the procedure for tomorrow. If the wound is amenable, I will also place a wound vac. This was discussed with the wound care nurse as well. Please call with questions. Time=45min
[2018-05-09] MEDS: FEOSOL PO SCH (11:55)
[2018-05-09] MEDS: ARICEPT PO SCH (11:55)
[2018-05-09] MEDS: PREVACID SOLUTAB FEEDTUBE SCH (11:56)
--- NOTE | 2018-05-09 12:50 | Progress Note ---
Assessment and Plan Optimize HR - initiate PO lopressor as BPs permit and cont IV amio. F/u echo reviewed - EF 50-55%, mild MR, no evidence of endocarditis. No systemic AC secondary to GI bleed and advanced dementia. Pt recommended for debridement of sacral wound - she is currently at moderate cardiovascular risk for contemplated procedure. There are no immediate cardiac contraindications to proceeding with debridement. The patient has been seen in conjunction with Dr. Brenda Mccarthy who agrees with the assessment and plan of care. - Patient Problems (1) Atrial fibrillation with RVR Current Visit: Yes Status: Acute (2) Elevated digoxin level Current Visit: Yes Status: Acute (3) Acute respiratory failure Current Visit: Yes Status: Acute (4) Sepsis Current Visit: Yes Status: Acute (5) Bacteremia Current Visit: Yes Status: Acute (6) Pneumonia Current Visit: Yes Status: Suspected (7) UTI (urinary tract infection) Current Visit: Yes Status: Acute Qualifiers: Urinary tract infection type: site unspecified Hematuria presence: without hematuria Qualified Code(s): N39.0 - Urinary tract infection, site not specified (8) History of CVA (cerebrovascular accident) Current Visit: Yes Status: Chronic (9) History of GI bleed Current Visit: Yes Status: Chronic (10) Diabetes Current Visit: Yes Status: Chronic (11) Hyperkalemia Current Visit: Yes Status: Acute (12) Dementia Current Visit: Yes Status: Chronic Subjective Date of service: 05/09/18 Principal diagnosis: afib Interval history: pt resting in bed, lethargic, nonverbal, no apparent distress. tele reviewed in AFib with bouts of RVR overnight. Objective Last Vital Signs Temp 99.5 F 05/09/18 08:44 Pulse 126 H 05/09/18 08:44 Resp 18 05/09/18 08:44 BP 126/73 05/09/18 08:44 Pulse Ox 94 05/09/18 08:44 - Physical Examination General: Other (lethargic, nonverbal) Neck: Positive: neck supple, trachea midline Cardiac: Positive: irregularly irregular, S1/S2 Lungs: Positive: Decreased Breath Sounds Neuro: Positive: Other (lethargic, nonverbal, unable to assess) Skin: Negative: Rash Musculoskeletal: No Pain Extremities: Absent: edema - Labs and Meds CBC 05/08/18 05/09/18 05/09/18 Range/Units 14:18 00:17 05:09 WBC 16.1 H 16.6 H 13.9 H (4.5-11.0) K/mm3 RBC 3.06 L 2.90 L 2.69 L (3.65-5.03) M/mm3 Hgb 8.8 L 8.2 L 7.7 L (10.1-14.3) gm/dl Hct 28.1 L 26.1 L 24.5 L (30.3-42.9) % Plt Count 278 210 265 (140-440) K/mm3 Comprehensive Metabolic Panel 05/09/18 Range/Units 05:15 Sodium 144 D (137-145) mmol/L Potassium 3.7 (3.6-5.0) mmol/L Chloride 112.3 H (98-107) mmol/L Carbon Dioxide 20 L (22-30) mmol/L BUN 21 H (7-17) mg/dL Creatinine 0.5 L (0.7-1.2) mg/dL Glucose 236 H (65-100) mg/dL Calcium 7.0 L (8.4-10.2) mg/dL - Imaging and Cardiology EKG: report reviewed, image reviewed Echo: report reviewed (04/09/18 showed EF 50-55%, mild LVH. 07/2016 showed EF 50- 55%, mild LVH, abnormal diastolic function, LA mild to mod dilated, mild MR, mod TR, RVSP 41mmHg.)
--- NOTE | 2018-05-09 15:49 | Progress Note ---
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 Hospice was recommended but not chosen. Now, she presents back to [facility] ED with SOB, elevated temperature, hypotension and potassium level of 6.3. She has been admitted to the ICU. Clinically, patie nt looks gravely ill. * pCXR Impression: Interval improvement of CHF but new patch opacities in the right lung base are suspicious for pneumonia. * UA with >180 WBC and positive LE * Enteroccocus Avium Bacteremia in blood cultures Acute respiratory failure, likely from PNA most likely from aspiration: duo nebs, bipap as needed, start iv abx, consulted pulmonary Severe sepsis possible from RLL aspiration pneumonia, UTI and infected sacral decubitus wound Infected unstageable sacral wound, poa: Gen. Surgery wants to take to surgery tomorrow, I called Cardiology for pre-op risk assessment Enteroccocus Avium Bacteremia, possibly from sacral wound. ID following, Picc line to termite technician abx Right LL Aspiration PNA: ID is following, continue abx Elevated troponin, chronically elevated, Cardiology following Hyperkalemia, resolved Hypernatremia resolved with free water: hold free water Severe dementia, supportive care, cont aricept A. fib now RVR, off anticoagulation due to h/o GI bleed History of CVA with residual right sided weakness and status post PEG placement: PEG care, tube feeding per protocol, cont aspirin and statin Anemia, with h/o GI bleed, monitor H/H H/o Hypertension; hypotensive resolved Dyslipidemia, cont statin Type 2 diabetes mellitus, Accu-Chek sliding scale coverage and TF diet and insulin as needed Hypothyroidism; continue Synthroid closely monitor DVT prophylaxis; lovenox Code; full CODE STATUS Very poor prognosis, need discussion with the family patients condition,treatment plan D/W son Verónica History Interval history: Patient was seen and examined. Follow-up on current diagnosis of respiratory failure and hypotension. Patient is nonverbal at bedside. Imaging, nursing note, chart, labs and old chart reviewed. Discussed with family at bedside. Hospitalist Physical - Physical exam Narrative exam: Gen: gravely ill, moderate increase in accessory muscles, eyes opened but not focus, green Vm HEENT: NCAT, EOMI, PERRL, OP dry Neck: supple, no adenopathy, no thyromegaly, no JVD CVS/Heart: Regular tachycardia normal S1S2, pulses present bilaterally Chest/Lungs: diminished bs bilaterally, Symmetrical chest expansion, poor air entry bilaterally GI/Abdomen: soft, NTND, good bowel sounds, no guarding or rebound /Bladder: no suprapubic tenderness, no CVA or paraspinal tenderness Extermity/Skin: Wound consult for sacral wound. Wound measured at 5.0x6.0x0.1. Scant drainage noticed to the wound. No odor noticed to the wound. Wound cleansed with wound cleanser, hydrogel dressing apply, wound covered with 4x4 gauze, and adhesive sacral foam dressing. Dr Brown assessed the wound and is plaining to debrided the wound in the OR tommorrow. MSK: contracted and atrophic legs without movement Neuro: CN 2-12 grossly intact, no new focal deficits Psych: nonverbal, appears confused and unfocused - Constitutional Vitals: Temp Pulse Resp BP Pulse Ox 99.5 F 110 H 19 126/73 98 05/09/18 08:44 05/09/18 13:58 05/09/18 13:58 05/09/18 08:44 05/09/18 10:00 General appearance: Present: other (lethargic, nonverbal) Results - Labs CBC & Chem 7: 05/09/18 05:09 05/09/18 05:15 Labs: Laboratory Last Values WBC 13.9 K/mm3 (4.5-11.0) H 05/09/18 05:09 RBC 2.69 M/mm3 (3.65-5.03) L 05/09/18 05:09 Hgb 7.7 gm/dl (10.1-14.3) L 05/09/18 05:09 Hct 24.5 % (30.3-42.9) L 05/09/18 05:09 MCV 91 fl (79-97) 05/09/18 05:09 MCH 29 pg (28-32) 05/09/18 05:09 MCHC 32 % (30-34) 05/09/18 05:09 RDW 18.4 % (13.2-15.2) H 05/09/18 05:09 Plt Count 265 K/mm3 (140-440) 05/09/18 05:09 Lymph % (Auto) 9.3 % (13.4-35.0) L 05/07/18 04:28 [place] % (Auto) 4.6 % (0.0-7.3) 05/07/18 04:28 Eos % (Auto) 0.1 % (0.0-4.3) 05/07/18 04:28 Baso % (Auto) 1.0 % (0.0-1.8) 05/07/18 04:28 Lymph # 1.7 K/mm3 (1.2-5.4) 05/07/18 04:28 [place] # 0.8 K/mm3 (0.0-0.8) 05/07/18 04:28 Eos # 0.0 K/mm3 (0.0-0.4) 05/07/18 04:28 Baso # 0.2 K/mm3 (0.0-0.1) H 05/07/18 04:28 Add Manual Diff Complete 05/09/18 00:17 Total Counted 100 05/09/18 00:17 Seg Neutrophils % 85.0 % (40.0-70.0) H 05/07/18 04:28 Seg Neuts % (Manual) 83.0 % (40.0-70.0) H 05/09/18 00:17 Band Neutrophils % 2.0 % 05/09/18 00:17 Lymphocytes % (Manual) 13.0 % (13.4-35.0) L 05/09/18 00:17 Reactive Lymphs % (Man) 1.0 % 05/09/18 00:17 Monocytes % (Manual) 0 % (0.0-7.3) 05/09/18 00:17 Eosinophils % (Manual) 0 % (0.0-4.3) 05/09/18 00:17 Basophils % (Manual) 0 % (0.0-1.8) 05/09/18 00:17 Metamyelocytes % 1.0 % 05/09/18 00:17 Myelocytes % 0 % 05/09/18 00:17 Promyelocytes % 0 % 05/09/18 00:17 Blast Cells % 0 % 05/09/18 00:17 Nucleated RBC % Not Reportable 05/09/18 00:17 Seg Neutrophils # 15.4 K/mm3 (1.8-7.7) H 05/07/18 04:28 Seg Neutrophils # Man 13.8 K/mm3 (1.8-7.7) H 05/09/18 00:17 Band Neutrophils # 0.3 K/mm3 05/09/18 00:17 Lymphocytes # (Manual) 2.2 K/mm3 (1.2-5.4) 05/09/18 00:17 Abs React Lymphs (Man) 0.2 K/mm3 05/09/18 00:17 Monocytes # (Manual) 0.0 K/mm3 (0.0-0.8) 05/09/18 00:17 Eosinophils # (Manual) 0.0 K/mm3 (0.0-0.4) 05/09/18 00:17 Basophils # (Manual) 0.0 K/mm3 (0.0-0.1) 05/09/18 00:17 Metamyelocytes # 0.2 K/mm3 05/09/18 00:17 Myelocytes # 0.0 K/mm3 05/09/18 00:17 Promyelocytes # 0.0 K/mm3 05/09/18 00:17 Blast Cells # 0.0 K/mm3 05/09/18 00:17 WBC Morphology Not Reportable 05/09/18 00:17 Hypersegmented Neuts Not Reportable 05/09/18 00:17 Hyposegmented Neuts Not Reportable 05/09/18 00:17 Hypogranular Neuts Not Reportable 05/09/18 00:17 Smudge Cells Not Reportable 05/09/18 00:17 Toxic Granulation Not Reportable 05/09/18 00:17 Toxic Vacuolation Not Reportable 05/09/18 00:17 Dohle Bodies Not Reportable 05/09/18 00:17 Pelger-Huet Anomaly Not Reportable 05/09/18 00:17 Rene Rods Not Reportable 05/09/18 00:17 Platelet Estimate Appears normal 05/09/18 00:17 Clumped Platelets Not Reportable 05/09/18 00:17 Plt Clumps, EDTA Not Reportable 05/09/18 00:17 Large Platelets Not Reportable 05/09/18 00:17 Giant Platelets Not Reportable 05/09/18 00:17 Platelet Satelliting Not Reportable 05/09/18 00:17 Plt Morphology Comment Not Reportable 05/09/18 00:17 RBC Morphology Not Reportable 05/09/18 00:17 Dimorphic RBCs Not Reportable 05/09/18 00:17 Polychromasia 1+ 05/09/18 00:17 Hypochromasia 1+ 05/09/18 00:17 Poikilocytosis Not Reportable 05/09/18 00:17 Anisocytosis 1+ 05/09/18 00:17 Microcytosis Not Reportable 05/09/18 00:17 Macrocytosis Not Reportable 05/09/18 00:17 Spherocytes Not Reportable 05/09/18 00:17 Pappenheimer Bodies Not Reportable 05/09/18 00:17 Sickle Cells Not Reportable 05/09/18 00:17 Target Cells 1+ 05/09/18 00:17 Tear Drop Cells Not Reportable 05/09/18 00:17 Ovalocytes 2+ 05/09/18 00:17 Helmet Cells Not Reportable 05/09/18 00:17 [place] Bodies Not Reportable 05/09/18 00:17 [place] Rings Not Reportable 05/09/18 00:17 [place] Cells Not Reportable 05/09/18 00:17 Bite Cells Not Reportable 05/09/18 00:17 Crenated Cell Not Reportable 05/09/18 00:17 Elliptocytes 1+ 05/09/18 00:17 Acanthocytes (Spur) Not Reportable 05/09/18 00:17 Rouleaux Not Reportable 05/09/18 00:17 Hemoglobin C Crystals Not Reportable 05/09/18 00:17 Schistocytes Not Reportable 05/09/18 00:17 Malaria parasites Not Reportable 05/09/18 00:17 Ajay Bodies Not Reportable 05/09/18 00:17 Hem Pathologist Commnt No 05/09/18 00:17 APTT 27.6 Sec. (24.2-36.6) 05/06/18 08:25 POC ABG pH 7.478 (7.35-7.45) H 05/06/18 10:46 POC ABG pCO2 28.1 (35-45) L 05/06/18 10:46 POC ABG pO2 164 (80-105) H 05/06/18 10:46 POC ABG HCO3 20.8 05/06/18 10:46 POC ABG Total CO2 22 05/06/18 10:46 POC ABG O2 Sat 100 05/06/18 10:46 POC ABG Base Excess -3 05/06/18 10:46 FiO2 35 % 05/06/18 10:46 Sodium 144 mmol/L (137-145) D 05/09/18 05:15 Potassium 3.7 mmol/L (3.6-5.0) 05/09/18 05:15 Chloride 112.3 mmol/L (98-107) H 05/09/18 05:15 Carbon Dioxide 20 mmol/L (22-30) L 05/09/18 05:15 Anion Gap 15 mmol/L 05/09/18 05:15 BUN 21 mg/dL (7-17) H 05/09/18 05:15 Creatinine 0.5 mg/dL (0.7-1.2) L 05/09/18 05:15 Estimated GFR > 60 ml/min 05/09/18 05:15 BUN/Creatinine Ratio 42 % 05/09/18 05:15 Glucose 236 mg/dL (65-100) H 05/09/18 05:15 POC Glucose 250 (70-105) H 05/09/18 06:19 Lactic Acid 5.30 mmol/L (0.7-2.0) H* 05/06/18 16:17 Calcium 7.0 mg/dL (8.4-10.2) L 05/09/18 05:15 Phosphorus 3.30 mg/dL (2.5-4.5) 05/06/18 11:03 Magnesium 2.40 mg/dL (1.7-2.3) H 05/08/18 06:07 Total Bilirubin 0.30 mg/dL (0.1-1.2) 05/06/18 08:25 AST 42 units/L (5-40) H 05/06/18 08:25 ALT 34 units/L (7-56) 05/06/18 08:25 Alkaline Phosphatase 93 units/L (35-129) 05/06/18 08:25 Troponin T 0.068 ng/mL (0.00-0.029) H 05/07/18 04:28 NT-Pro-B Natriuret Pep 4756 pg/mL (0-900) H 05/06/18 08:25 Total Protein 7.9 g/dL (6.3-8.2) 05/06/18 08:25 Albumin 3.0 g/dL (3.9-5) L 05/06/18 08:25 Albumin/Globulin Ratio 0.6 % 05/06/18 08:25 Prealbumin 0.111 g/L (0.200-0.400) L 05/06/18 11:03 Triglycerides 320 mg/dL (2-149) H 05/06/18 08:25 Cholesterol 124 mg/dL (50-199) 05/06/18 08:25 LDL Cholesterol Direct 52 mg/dL (50-130) 05/06/18 08:25 HDL Cholesterol 32 mg/dL (40-59) L 05/06/18 08:25 Cholesterol/HDL Ratio 3.87 % 05/06/18 08:25 Urine Color Yellow (Yellow) 05/06/18 10:37 Urine Turbidity Turbid (Clear) 05/06/18 10:37 Urine pH 7.0 (5.0-7.0) 05/06/18 10:37 Ur Specific [place] 1.008 (1.003-1.030) 05/06/18 10:37 Urine Protein 100 mg/dl mg/dL (Negative) 05/06/18 10:37 Urine Glucose (UA) Neg mg/dL (Negative) 05/06/18 10:37 Urine Ketones Neg mg/dL (Negative) 05/06/18 10:37 Urine Blood Mod (Negative) 05/06/18 10:37 Urine Nitrite Neg (Negative) 05/06/18 10:37 Urine Bilirubin Neg (Negative) 05/06/18 10:37 Urine Urobilinogen < 2.0 mg/dL (<2.0) 05/06/18 10:37 Ur Leukocyte Esterase Mod (Negative) 05/06/18 10:37 Urine WBC (Auto) > 182.0 /HPF (0.0-6.0) H 05/06/18 10:37 Urine RBC (Auto) 56.0 /HPF (0.0-6.0) 05/06/18 10:37 U Epithel Cells (Auto) 7.0 /HPF (0-13.0) 05/06/18 10:37 Urine Bacteria (Auto) 4+ /HPF (Negative) 05/06/18 10:37 Urine WBC Clumps 3+ /HPF 05/06/18 10:37 Urine Mucus 3+ /HPF 05/06/18 10:37 Digoxin 0.8 ng/mL (0.9-2.0) L 05/08/18 06:07 Nutrition/Malnutrition Assess - Dietary Evaluation Nutrition/Malnutrition Findings: Nutrition Notes Start: 05/06/18 15:02 Freq: Status: Active Protocol: Document 05/08/18 09:22 TW (Rec: 05/08/18 10:36 TW [id number]) Co-Sign 05/08/18 09:22 RM Nutrition Notes Initial or Follow up Reassessment Current Diagnosis Diabetes Sepsis Hypertension Respiratory Failure Stroke Other Pertinent Diagnosis RLL pneu, severe dementia, sacral wound Current Diet Glucerna 1.2 at 45 ml/hr Labs/Tests Na:155 K: 4.2 BUN: 31 B M.4 Pertinent Medications D5 NS at 75ml/hr, Feosol Height 5 ft Weight 48.9 kg [place] Body Weight (kg) 45.45 BMI 21.0 Subjective/Other Information Observed Glucerna 1.2 running at goal rate (45 ml/hr). Per RN, pt tolerating TF well with no residual. Percent of energy/protein needs met: 88%/100% Burn Absent Trauma Absent #1 Nutrition Diagnosis Inadequate oral intake Diagnosis Progress(for reassessment Continues documentation) Is patient on ventilator? No Is Patient Ambulatory and/or Out of Bed No REE-([facility]-confined to bed) 1016.460 Kcal/Kg value to use for calculation 30 Approximate Energy Requirements Using 1467 kcal/Kg Calculation Used for Recommendations Kcal/kg Additional Notes Pro needs 1.5-1.7g/k-83g/ day Fluid needs 1ml/kcal Nutrition Intervention Nutrition Support: Glucerna 1.2 at 45ml/hr with 150ml water flush q4h until hypernatremia resolves. Water flush of 75 ml q4h after resolved. Kcal 1,296 Protein (gm) 65 Carbohydrates (gm) 124 Fat (gm) 65 Fluid (mL) 869 Fiber (gm) 17 Goal #1 TF tolerance Goal #2 TF to continue to meet at least 75% of energy and pro needs Anticipated Discharge Needs: Continue Glucerna 1.2 (or equivalent) at 45ml/hr with 75ml water flush q4h Follow-Up By: 05/11/18 Additional Comments F/U: stable TF, Na level
[2018-05-09] MEDS: UNASYN/NS 1.5 GM/50 ML 1.5 GM/50 ML BAG IV SCH ×2 (16:55→21:10)
[2018-05-09] MEDS: TYLENOL PO PRN (21:09)
[2018-05-09] MEDS: PRAVACHOL PO SCH (21:10)
[2018-05-09] MEDS: LOPRESSOR PO SCH (21:10)
[2018-05-09] MEDS: VANCOMYCIN 750 MG in NACL 0.9% 250ML 250 ML IV SCH (23:24)
[2018-05-09] MEDS: CORDARONE 900 MG in D5W 482 ML IV SCH (23:24)
[2018-05-10] MEDS: REGLAN PO SCH ×5 (00:18→18:52)
[2018-05-10] MEDS: HumuLIN R SUB-Q SCH ×4 (01:18→18:55)
[2018-05-10] MEDS: DUONEB *Not for PRN Use IH SCH ×4 (01:43→19:41)
[2018-05-10] MEDS: UNASYN/NS 1.5 GM/50 ML 1.5 GM/50 ML BAG IV SCH ×3 (02:54→14:00)
[2018-05-10] MEDS: SYNTHROID PO SCH (06:00)
[2018-05-10 06:16] LABS: Hematocrit 24.7 % (30.3-42.9); Hemoglobin 7.6 gm/dl (10.1-14.3); Mean Corpuscular HGB Conc 31 % (30-34); Mean Corpuscular Volume 95 fl (79-97); Red Blood Count 2.59 M/mm3 (3.65-5.03); Red Cell Distribution Width 19.2 % (13.2-15.2)
[2018-05-10 06:17] LABS: Platelet Count 219 K/mm3 (140-440)
[2018-05-10 06:39] LABS: BUN/Creatinine Ratio 40; Blood Urea Nitrogen 16 mg/dL (7-17); Calcium 7.3 mg/dL (8.4-10.2); Hemolysis Index 32
[2018-05-10] MEDS: PROAMATINE PO SCH ×3 (08:30→18:53)
--- NOTE | 2018-05-10 08:43 | Event Note ---
Date: 05/10/[address] Contreras. Pt's status has changed. not safe to proceed to OR. Will plan for debridement at bedside. tried to contact son, but unable to get through. Will try again later.
[2018-05-10] MEDS: ARICEPT PO SCH ×2 (10:00→11:21)
[2018-05-10] MEDS: PREVACID SOLUTAB FEEDTUBE SCH ×2 (10:00→11:21)
[2018-05-10] MEDS: FEOSOL PO SCH ×2 (10:00→11:20)
--- NOTE | 2018-05-10 10:25 | Progress Note ---
Assessment and Plan Cultures: 05/06/2018 blood culture: One set, both bottles positive for Enteroccocus Avium 05/06/2018 urine culture: no growth to date A/P: 87-year-old female with prior CVA, right-sided hemiplegia, if he is here, CHF, diabetes mellitus, vascular dementia who is currently a senior care resident admitted with: 1) Sepsis Leukocytosis worsening, no fevers. : Possibly secondary to urinary tract infection: Empirically on IV Zosyn and vancomycin. We'll DC Zosyn and start IV cefepime. Continue vancomycin. Apparently, Abbott was exchanged in the emergency room. 2) Urinary tract infection: IV antibiotics as above. 3) Enteroccocus Avium Bacteremia: Continue IV vancomycin. F/u repeat blood cultures. . Follow-up ID and sensitivity. TTE limited, but shows no valvular vegetation 4) Acute respiratory failure: Transient and seems to have resolved. 5) Digoxin toxicity: Patient with hyperkalemia and elevated digoxin levels on admission. 6) Advanced dementia: bedbound and non verbal. Poor prognosis, consider palliative care/hospice. 7) Type 2 diabetes mellitus: uncontrolled Recs: Increase Unasyn 3 gms q 6, D2 Continue IV vancomycin, with PK based dosing f/u blood cultures Dr. Campos will be interventional neuroradiologist this weekend , please call for questions . [facility] M: [phone] O:[phone] Subjective Date of service: 05/10/18 Principal diagnosis: afib Interval history: Patient seen and examined. Nonverbal at baseline, Alert with increased WOB, not improving clinically. Objective - Exam Narrative Exam: Physical Exam: Constitutional: awake, non verbal, agitated, acute distress observed Head, Ears, Nose: Normocephalic, atraumatic. External ears, nose normal Eyes: Conjunctivae/corneas clear. No icterus. No ptosis. Neck: Supple, no meningeal signs Oral: mucosa dry, tongue coated with plaque Cardiovascular: S1, S2 normal. Respiratory: Good air entry, clear to auscultation bilaterally GI: Soft, non-tender; bowel sounds normal. No peritoneal signs. Gtube + Musculoskeletal: No pedal edema, no cyanosis. Skin: No rash or abscess Hem/Lymphatic: No palpable cervical or supraclavicular nodes. No lymphangitis Psych: + agitation Neurological: awake, non verbal, bedbound - Constitutional Vitals: Vital Signs Temp Pulse Resp BP Pulse Ox 98 F 139 H 20 148/79 97 05/10/18 08:54 05/10/18 08:50 05/10/18 08:54 05/10/18 08:50 05/10/18 08:50 Temperature -Last 24 Hours Temperature 98 F Temperature 97.8 F Temperature 97.4 F Temperature 98.0 F - Labs CBC & Chem 7: 05/10/18 05:48 05/10/18 05:48 Labs: Abnormal lab results 05/09/18 05/09/18 05/10/18 Range/Units 12:05 18:32 01:08 WBC (4.5-11.0) K/mm3 RBC (3.65-5.03) M/mm3 Hgb (10.1-14.3) gm/dl Hct (30.3-42.9) % RDW (13.2-15.2) % Chloride (98-107) mmol/L Carbon Dioxide (22-30) mmol/L Creatinine (0.7-1.2) mg/dL Glucose (65-100) mg/dL POC Glucose 272 H 315 H 134 H (70-105) Calcium (8.4-10.2) mg/dL 05/10/18 05/10/18 05/10/18 Range/Units 05:48 05:48 06:04 WBC 18.8 H (4.5-11.0) K/mm3 RBC 2.59 L (3.65-5.03) M/mm3 Hgb 7.6 L (10.1-14.3) gm/dl Hct 24.7 L (30.3-42.9) % RDW 19.2 H (13.2-15.2) % Chloride 107.6 H (98-107) mmol/L Carbon Dioxide 18 L (22-30) mmol/L Creatinine 0.4 L (0.7-1.2) mg/dL Glucose 144 H (65-100) mg/dL POC Glucose 153 H (70-105) Calcium 7.3 L (8.4-10.2) mg/dL
--- NOTE | 2018-05-10 10:35 | Progress Note ---
Assessment and Plan Pt for debridement today and is currently NPO. Cont IV amio gtt and plan for conversion to PO amio once enteral intake is resumed. Increase lopressor dosage. No systemic AC secondary to GI bleed and advanced dementia. The patient has been seen in conjunction with Dr. Brenda Mccarthy who agrees with the assessment and plan of care. - Patient Problems (1) Atrial fibrillation with RVR Current Visit: Yes Status: Acute (2) Elevated digoxin level Current Visit: Yes Status: Acute (3) Acute respiratory failure Current Visit: Yes Status: Acute (4) Sepsis Current Visit: Yes Status: Acute (5) Bacteremia Current Visit: Yes Status: Acute (6) Pneumonia Current Visit: Yes Status: Suspected (7) UTI (urinary tract infection) Current Visit: Yes Status: Acute Qualifiers: Qualified Code(s): N39.0 - Urinary tract infection, site not specified (8) History of CVA (cerebrovascular accident) Current Visit: Yes Status: Chronic (9) History of GI bleed Current Visit: Yes Status: Chronic (10) Diabetes Current Visit: Yes Status: Chronic (11) Hyperkalemia Current Visit: Yes Status: Acute (12) Dementia Current Visit: Yes Status: Chronic Subjective Date of service: 05/10/18 Principal diagnosis: afib Interval history: pt resting in bed, lethargic, nonverbal, no apparent distress. tele reviewed in AFib with bouts of RVR (HR 130s - 150s) overnight. Objective Last Vital Signs Temp 98 F 05/10/18 08:54 Pulse 139 H 05/10/18 08:50 Resp 20 05/10/18 08:54 BP 148/79 05/10/18 08:50 Pulse Ox 97 05/10/18 08:50 - Physical Examination General: Other (lethargic, nonverbal) Neck: Positive: neck supple, trachea midline Cardiac: Positive: irregularly irregular, S1/S2, Tachycardia Lungs: Positive: Decreased Breath Sounds Neuro: Positive: Other (lethargic, nonverbal, unable to assess) Skin: Negative: Rash Musculoskeletal: No Pain Extremities: Absent: edema - Labs and Meds CBC 05/10/18 Range/Units 05:48 WBC 18.8 H (4.5-11.0) K/mm3 RBC 2.59 L (3.65-5.03) M/mm3 Hgb 7.6 L (10.1-14.3) gm/dl Hct 24.7 L (30.3-42.9) % Plt Count 219 (140-440) K/mm3 Comprehensive Metabolic Panel 05/10/18 Range/Units 05:48 Sodium 140 (137-145) mmol/L Potassium 3.7 (3.6-5.0) mmol/L Chloride 107.6 H (98-107) mmol/L Carbon Dioxide 18 L (22-30) mmol/L BUN 16 (7-17) mg/dL Creatinine 0.4 L (0.7-1.2) mg/dL Glucose 144 H (65-100) mg/dL Calcium 7.3 L (8.4-10.2) mg/dL - Imaging and Cardiology EKG: report reviewed, image reviewed Echo: report reviewed (04/09/18 showed EF 50-55%, mild LVH. 07/2016 showed EF 50- 55%, mild LVH, abnormal diastolic function, LA mild to mod dilated, mild MR, mod TR, RVSP 41mmHg.)
[2018-05-10] MEDS: LOPRESSOR PO SCH ×3 (11:01→21:03)
[2018-05-10] MEDS: CORDARONE 900 MG in D5W 482 ML IV SCH (11:24)
--- NOTE | 2018-05-10 11:31 | XRay Report ---
AP CHEST: HISTORY: Left arm PICC placement Left arm PICC has been inserted which terminates in the superior right atrium. Mild cardiomegaly, mild pulmonary venous congestion and small right pleural effusion have developed since 05/06/18. Mild linear atelectasis is noted in the lower lung zones. No consolidation or pneumothorax. IMPRESSION: Left arm PICC as described. Mild volume overload.
[2018-05-10] MEDS: UNASYN/NS 3 GM/100 ML 3 GM/100 ML BAG IV SCH ×2 (15:04→20:53)
--- NOTE | 2018-05-10 15:19 | Progress Note ---
Assessment and Plan Assessment and plan: Patient is a 87 yo woman from [facility] with a plethora of end stage Co-morbidities including 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 Hospice was recommended but not chosen. Now, she presents back to [facility] ED with SOB, elevated temperature, hypotension and potassium level of 6.3. She has been admitted to the ICU. Clinically, patie nt looks gravely ill. * pCXR Impression: Interval improvement of CHF but new patch opacities in the right lung base are suspicious for pneumonia. * UA with >180 WBC and positive LE * Enteroccocus Avium Bacteremia in blood cultures Acute respiratory failure, likely from PNA most likely from aspiration: duo nebs, bipap as needed, start iv abx, consulted pulmonary Severe sepsis possible from RLL aspiration pneumonia, UTI and infected sacral decubitus wound Infected unstageable sacral wound, poa: Gen. Surgery wants to take to surgery tomorrow, I called Cardiology for pre-op risk assessment Enteroccocus Avium Bacteremia, possibly from sacral wound. ID following, Picc line to intermediate designer abx Right LL Aspiration PNA: ID is following, continue abx Elevated troponin, chronically elevated, Cardiology following Hyperkalemia, resolved Hypernatremia resolved with free water: hold free water Severe dementia, supportive care, cont aricept A. fib now RVR, off anticoagulation due to h/o GI bleed History of CVA with residual right sided weakness and status post PEG placement: PEG care, tube feeding per protocol, cont aspirin and statin Anemia, with h/o GI bleed, monitor H/H H/o Hypertension; hypotensive resolved Dyslipidemia, cont statin Type 2 diabetes mellitus, Accu-Chek sliding scale coverage and TF diet and insulin as needed Hypothyroidism; continue Synthroid closely monitor DVT prophylaxis; lovenox Code; full CODE STATUS Very poor prognosis, multiple discussion with sonVanessa regarding my recommendation for Hospice. Patient is to ill for OR, still with AFib with RVR, 130s, tachypneic, and she was hypotensive overnight, d/w Dr. Brown. PICC line placed for fci abx Disposition: continue inpatient care, once heart rate is controlled then d/c back to [place] with picc and abx. Probably thru the weekend because blood cultures has not finalized yet History Interval history: Patient was seen and examined. Follow-up on current diagnosis of respiratory failure and hypotension. Patient is nonverbal at bedside. Imaging, nursing note, chart, labs and old chart reviewed. Discussed with family at bedside. Hospitalist Physical - Physical exam Narrative exam: Gen: gravely ill, moderate increase in accessory muscles, eyes opened but not focus, green Vm HEENT: NCAT, EOMI, PERRL, OP dry Neck: supple, no adenopathy, no thyromegaly, no JVD CVS/Heart: Regular tachycardia normal S1S2, pulses present bilaterally Chest/Lungs: diminished bs bilaterally, Symmetrical chest expansion, poor air entry bilaterally GI/Abdomen: soft, NTND, good bowel sounds, no guarding or rebound /Bladder: no suprapubic tenderness, no CVA or paraspinal tenderness Extermity/Skin: Wound consult for sacral wound. Wound measured at 5.0x6.0x0.1. Scant drainage noticed to the wound. No odor noticed to the wound. Wound cleansed with wound cleanser, hydrogel dressing apply, wound covered with 4x4 gauze, and adhesive sacral foam dressing. Dr Brown assessed the wound and is plaining to debrided the wound in the OR tommorrow. MSK: contracted and atrophic legs without movement Neuro: CN 2-12 grossly intact, no new focal deficits Psych: nonverbal, appears confused and unfocused - Constitutional Vitals: Temp Pulse Resp BP Pulse Ox 98 F 105 H 20 132/88 93 05/10/18 12:09 05/10/18 15:00 05/10/18 13:56 05/10/18 15:00 05/10/18 12:09 General appearance: Present: other (lethargic, nonverbal) Results - Labs CBC & Chem 7: 05/10/18 05:48 05/10/18 05:48 Labs: Laboratory Last Values WBC 18.8 K/mm3 (4.5-11.0) H 05/10/18 05:48 RBC 2.59 M/mm3 (3.65-5.03) L 05/10/18 05:48 Hgb 7.6 gm/dl (10.1-14.3) L 05/10/18 05:48 Hct 24.7 % (30.3-42.9) L 05/10/18 05:48 MCV 95 fl (79-97) 05/10/18 05:48 MCH 29 pg (28-32) 05/10/18 05:48 MCHC 31 % (30-34) 05/10/18 05:48 RDW 19.2 % (13.2-15.2) H 05/10/18 05:48 Plt Count 219 K/mm3 (140-440) 05/10/18 05:48 Lymph % (Auto) 9.3 % (13.4-35.0) L 05/07/18 04:28 [place] % (Auto) 4.6 % (0.0-7.3) 05/07/18 04:28 Eos % (Auto) 0.1 % (0.0-4.3) 05/07/18 04:28 Baso % (Auto) 1.0 % (0.0-1.8) 05/07/18 04:28 Lymph # 1.7 K/mm3 (1.2-5.4) 05/07/18 04:28 [place] # 0.8 K/mm3 (0.0-0.8) 05/07/18 04:28 Eos # 0.0 K/mm3 (0.0-0.4) 05/07/18 04:28 Baso # 0.2 K/mm3 (0.0-0.1) H 05/07/18 04:28 Add Manual Diff Complete 05/09/18 00:17 Total Counted 100 05/09/18 00:17 Seg Neutrophils % 85.0 % (40.0-70.0) H 05/07/18 04:28 Seg Neuts % (Manual) 83.0 % (40.0-70.0) H 05/09/18 00:17 Band Neutrophils % 2.0 % 05/09/18 00:17 Lymphocytes % (Manual) 13.0 % (13.4-35.0) L 05/09/18 00:17 Reactive Lymphs % (Man) 1.0 % 02/14/19 00:17 Monocytes % (Manual) 0 % (0.0-7.3) 05/09/18 00:17 Eosinophils % (Manual) 0 % (0.0-4.3) 05/09/18 00:17 Basophils % (Manual) 0 % (0.0-1.8) 05/09/18 00:17 Metamyelocytes % 1.0 % 05/09/18 00:17 Myelocytes % 0 % 05/09/18 00:17 Promyelocytes % 0 % 05/09/18 00:17 Blast Cells % 0 % 05/09/18 00:17 Nucleated RBC % Not Reportable 05/09/18 00:17 Seg Neutrophils # 15.4 K/mm3 (1.8-7.7) H 05/07/18 04:28 Seg Neutrophils # Man 13.8 K/mm3 (1.8-7.7) H 05/09/18 00:17 Band Neutrophils # 0.3 K/mm3 05/09/18 00:17 Lymphocytes # (Manual) 2.2 K/mm3 (1.2-5.4) 05/09/18 00:17 Abs React Lymphs (Man) 0.2 K/mm3 05/09/18 00:17 Monocytes # (Manual) 0.0 K/mm3 (0.0-0.8) 05/09/18 00:17 Eosinophils # (Manual) 0.0 K/mm3 (0.0-0.4) 05/09/18 00:17 Basophils # (Manual) 0.0 K/mm3 (0.0-0.1) 05/09/18 00:17 Metamyelocytes # 0.2 K/mm3 05/09/18 00:17 Myelocytes # 0.0 K/mm3 05/09/18 00:17 Promyelocytes # 0.0 K/mm3 05/09/18 00:17 Blast Cells # 0.0 K/mm3 05/09/18 00:17 WBC Morphology Not Reportable 05/09/18 00:17 Hypersegmented Neuts Not Reportable 05/09/18 00:17 Hyposegmented Neuts Not Reportable 05/09/18 00:17 Hypogranular Neuts Not Reportable 05/09/18 00:17 Smudge Cells Not Reportable 05/09/18 00:17 Toxic Granulation Not Reportable 05/09/18 00:17 Toxic Vacuolation Not Reportable 05/09/18 00:17 Dohle Bodies Not Reportable 05/09/18 00:17 Pelger-Huet Anomaly Not Reportable 05/09/18 00:17 Rene Rods Not Reportable 05/09/18 00:17 Platelet Estimate Appears normal 05/09/18 00:17 Clumped Platelets Not Reportable 05/09/18 00:17 Plt Clumps, EDTA Not Reportable 05/09/18 00:17 Large Platelets Not Reportable 05/09/18 00:17 Giant Platelets Not Reportable 05/09/18 00:17 Platelet Satelliting Not Reportable 05/09/18 00:17 Plt Morphology Comment Not Reportable 05/09/18 00:17 RBC Morphology Not Reportable 05/09/18 00:17 Dimorphic RBCs Not Reportable 05/09/18 00:17 Polychromasia 1+ 05/09/18 00:17 Hypochromasia 1+ 05/09/18 00:17 Poikilocytosis Not Reportable 05/09/18 00:17 Anisocytosis 1+ 05/09/18 00:17 Microcytosis Not Reportable 05/09/18 00:17 Macrocytosis Not Reportable 05/09/18 00:17 Spherocytes Not Reportable 05/09/18 00:17 Pappenheimer Bodies Not Reportable 05/09/18 00:17 Sickle Cells Not Reportable 05/09/18 00:17 Target Cells 1+ 05/09/18 00:17 Tear Drop Cells Not Reportable 05/09/18 00:17 Ovalocytes 2+ 05/09/18 00:17 Helmet Cells Not Reportable 05/09/18 00:17 Maldonado-Wimberley Bodies Not Reportable 05/09/18 00:17 Linn Rings Not Reportable 05/09/18 00:17 [place] Cells Not Reportable 05/09/18 00:17 Bite Cells Not Reportable 05/09/18 00:17 Crenated Cell Not Reportable 05/09/18 00:17 Elliptocytes 1+ 05/09/18 00:17 Acanthocytes (Spur) Not Reportable 05/09/18 00:17 Rouleaux Not Reportable 05/09/18 00:17 Hemoglobin C Crystals Not Reportable 05/09/18 00:17 Schistocytes Not Reportable 05/09/18 00:17 Malaria parasites Not Reportable 05/09/18 00:17 Ajay Bodies Not Reportable 05/09/18 00:17 Hem Pathologist Commnt No 05/09/18 00:17 APTT 27.6 Sec. (24.2-36.6) 05/06/18 08:25 POC ABG pH 7.478 (7.35-7.45) H 05/06/18 10:46 POC ABG pCO2 28.1 (35-45) L 05/06/18 10:46 POC ABG pO2 164 (80-105) H 05/06/18 10:46 POC ABG HCO3 20.8 05/06/18 10:46 POC ABG Total CO2 22 05/06/18 10:46 POC ABG O2 Sat 100 05/06/18 10:46 POC ABG Base Excess -3 05/06/18 10:46 FiO2 35 % 05/06/18 10:46 Sodium 140 mmol/L (137-145) 05/10/18 05:48 Potassium 3.7 mmol/L (3.6-5.0) 05/10/18 05:48 Chloride 107.6 mmol/L (98-107) H 05/10/18 05:48 Carbon Dioxide 18 mmol/L (22-30) L 05/10/18 05:48 Anion Gap 18 mmol/L 05/10/18 05:48 BUN 16 mg/dL (7-17) 05/10/18 05:48 Creatinine 0.4 mg/dL (0.7-1.2) L 05/10/18 05:48 Estimated GFR > 60 ml/min 05/10/18 05:48 BUN/Creatinine Ratio 40 % 05/10/18 05:48 Glucose 144 mg/dL (65-100) H 05/10/18 05:48 POC Glucose 134 (70-105) H 05/10/18 12:22 Lactic Acid 5.30 mmol/L (0.7-2.0) H* 05/06/18 16:17 Calcium 7.3 mg/dL (8.4-10.2) L 05/10/18 05:48 Phosphorus 3.30 mg/dL (2.5-4.5) 05/06/18 11:03 Magnesium 2.40 mg/dL (1.7-2.3) H 05/08/18 06:07 Total Bilirubin 0.30 mg/dL (0.1-1.2) 05/06/18 08:25 AST 42 units/L (5-40) H 05/06/18 08:25 ALT 34 units/L (7-56) 05/06/18 08:25 Alkaline Phosphatase 93 units/L (35-129) 05/06/18 08:25 Troponin T 0.068 ng/mL (0.00-0.029) H 05/07/18 04:28 NT-Pro-B Natriuret Pep 4756 pg/mL (0-900) H 05/06/18 08:25 Total Protein 7.9 g/dL (6.3-8.2) 05/06/18 08:25 Albumin 3.0 g/dL (3.9-5) L 05/06/18 08:25 Albumin/Globulin Ratio 0.6 % 05/06/18 08:25 Prealbumin 0.111 g/L (0.200-0.400) L 05/06/18 11:03 Triglycerides 320 mg/dL (2-149) H 05/06/18 08:25 Cholesterol 124 mg/dL (50-199) 05/06/18 08:25 LDL Cholesterol Direct 52 mg/dL (50-130) 05/06/18 08:25 HDL Cholesterol 32 mg/dL (40-59) L 05/06/18 08:25 Cholesterol/HDL Ratio 3.87 % 05/06/18 08:25 Urine Color Yellow (Yellow) 05/06/18 10:37 Urine Turbidity Turbid (Clear) 05/06/18 10:37 Urine pH 7.0 (5.0-7.0) 05/06/18 10:37 Ur Specific Aubrey 1.008 (1.003-1.030) 05/06/18 10:37 Urine Protein 100 mg/dl mg/dL (Negative) 05/06/18 10:37 Urine Glucose (UA) Neg mg/dL (Negative) 05/06/18 10:37 Urine Ketones Neg mg/dL (Negative) 05/06/18 10:37 Urine Blood Mod (Negative) 05/06/18 10:37 Urine Nitrite Neg (Negative) 05/06/18 10:37 Urine Bilirubin Neg (Negative) 05/06/18 10:37 Urine Urobilinogen < 2.0 mg/dL (<2.0) 05/06/18 10:37 Ur Leukocyte Esterase Mod (Negative) 05/06/18 10:37 Urine WBC (Auto) > 182.0 /HPF (0.0-6.0) H 05/06/18 10:37 Urine RBC (Auto) 56.0 /HPF (0.0-6.0) 05/06/18 10:37 U Epithel Cells (Auto) 7.0 /HPF (0-13.0) 05/06/18 10:37 Urine Bacteria (Auto) 4+ /HPF (Negative) 05/06/18 10:37 Urine WBC Clumps 3+ /HPF 05/06/18 10:37 Urine Mucus 3+ /HPF 05/06/18 10:37 Digoxin 0.8 ng/mL (0.9-2.0) L 05/08/18 06:07 Nutrition/Malnutrition Assess - Dietary Evaluation Nutrition/Malnutrition Findings: Nutrition Notes Start: 05/06/18 15:02 Freq: Status: Active Protocol: Document 05/08/18 09:22 TW (Rec: 05/08/18 10:36 TW [id number]) Co-Sign 05/08/18 09:22 Nutrition Notes Initial or Follow up Reassessment Current Diagnosis Diabetes Sepsis Hypertension Respiratory Failure Stroke Other Pertinent Diagnosis RLL pneu, severe dementia, sacral wound Current Diet Glucerna 1.2 at 45 ml/hr Labs/Tests Na:155 K: 4.2 BUN: 31 B M.4 Pertinent Medications D5 NS at 75ml/hr, Feosol Height 5 ft Weight 48.9 kg [place] Body Weight (kg) 45.45 BMI 21.0 Subjective/Other Information Observed Glucerna 1.2 running at goal rate (45 ml/hr). Per RN, pt tolerating TF well with no residual. Percent of energy/protein needs met: 88%/100% Burn Absent Trauma Absent #1 Nutrition Diagnosis Inadequate oral intake Diagnosis Progress(for reassessment Continues documentation) Is patient on ventilator? No Is Patient Ambulatory and/or Out of Bed No REE-([facility]-confined to bed) 1016.460 Kcal/Kg value to use for calculation 30 Approximate Energy Requirements Using 1467 kcal/Kg Calculation Used for Recommendations Kcal/kg Additional Notes Pro needs 1.5-1.7g/k-83g/ day Fluid needs 1ml/kcal Nutrition Intervention Nutrition Support: Glucerna 1.2 at 45ml/hr with 150ml water flush q4h until hypernatremia resolves. Water flush of 75 ml q4h after resolved. Kcal 1,296 Protein (gm) 65 Carbohydrates (gm) 124 Fat (gm) 65 Fluid (mL) 869 Fiber (gm) 17 Goal #1 TF tolerance Goal #2 TF to continue to meet at least 75% of energy and pro needs Anticipated Discharge Needs: Continue Glucerna 1.2 (or equivalent) at 45ml/hr with 75ml water flush q4h Follow-Up By: 05/11/18 Additional Comments F/U: stable TF, Na level
--- NOTE | 2018-05-10 17:47 | Procedure Note ---
Date of procedure: 05/10/18 Pre-op diagnosis: infected sacral decubitus ulcer Post-op diagnosis: same Procedure: Debridement of infected sacral decubitus ulcer Consent is on the chart. Timeout was called. Patient was placed in a right lateral decubitus position. Patient had no sen sation in the area of the ulcer. There were already 2 small holes in the necrotic tissue. Brownish drainage was seen on the dressing. An open debridement of the sacral ulcer was done. I excised a majority of the necrotic tissue. Culture swabs were taken and sent for evaluation. I debrided down to the sacral fascia. Difficult to tell if the fascia was also involved. The wound extended several centimeters laterally to the right and in inferolaterally to the left. The initial area was 5 x 6 cm. The depth appear to be at least 2 cm. The necrotic tissue in the subcutaneous layer was sharply excised. The necrotic tissue and fluid were brown and foul-smelling. I debridement as much as possible at the bedside. Wound was then packed with alginate. Dressing was placed. Patient tolerated the procedure well. There were no complications. Once the patient is clear by medicine, then we will go to the operating room for a few more extensive debridement. I tried to call the son a few times before the procedure to let him know about the change in plans due to her hemodynamic status. I was unable to reach him. Findings: brown, foul smelling necrotic tissue in the subcutaneous layer under the eschar. Anesthesia: none Surgeon: BEV CASTLE Estimated blood loss: none Pathology: list (culture swabs) Specimen disposition: to lab Condition: stable Disposition: floor
[2018-05-10] MEDS: D5/0.45NS 1,000 ML IV SCH (20:54)
[2018-05-10] MEDS: TYLENOL PO PRN (20:54)
[2018-05-10] MEDS: PRAVACHOL PO SCH (21:03)
[2018-05-11] MEDS: VANCOMYCIN 750 MG in NACL 0.9% 250ML 250 ML IV SCH (00:37)
[2018-05-11] MEDS: HumuLIN R SUB-Q SCH ×4 (01:45→22:05)
[2018-05-11] MEDS: DUONEB *Not for PRN Use IH SCH ×5 (01:49→20:58)
[2018-05-11] MEDS: UNASYN/NS 3 GM/100 ML 3 GM/100 ML BAG IV SCH ×4 (02:05→18:32)
[2018-05-11] MEDS: TYLENOL PO PRN ×4 (02:05→22:18)
[2018-05-11] MEDS: REGLAN PO SCH ×4 (02:05→18:31)
[2018-05-11] MEDS: CORDARONE 900 MG in D5W 482 ML IV SCH (05:10)
[2018-05-11 05:25] LABS: BUN/Creatinine Ratio 30; Blood Urea Nitrogen 15 mg/dL (7-17); Calcium 6.9 mg/dL (8.4-10.2); Hemolysis Index 71
[2018-05-11] MEDS: SYNTHROID PO SCH (06:04)
[2018-05-11] MEDS: LOPRESSOR PO SCH ×3 (09:15→22:18)
[2018-05-11] MEDS: FEOSOL PO SCH (09:15)
[2018-05-11] MEDS: ARICEPT PO SCH (09:16)
[2018-05-11] MEDS: PREVACID SOLUTAB FEEDTUBE SCH (09:23)
[2018-05-11] MEDS: D5/0.45NS 1,000 ML IV SCH ×2 (11:37→22:17)
[2018-05-11] MEDS: PROAMATINE PO SCH ×3 (11:43→17:02)
--- NOTE | 2018-05-11 13:05 | Progress Note ---
Assessment and Plan - Patient Problems (1) Unstageable pressure ulcer of sacral region Current Visit: Yes Status: Acute Plan to address problem: Pt stable. s/p bedside debridement - 05/10/18 - POD#1. Patient will have another dressing change tomorrow by the nursing staff. I will see the round again with the wound care nurse at the beginning of the week. I have asked the nurse to get a better contact number for the son. I tried calling him 3 times yesterday both before and after the procedure. I would like to inform him of why our plans changed and to see if he has any questions. Please call with questions. Time=10min Subjective Date of service: 05/11/18 Patient Reports: Positive: other (pt not communicative. Nurse reports that son was here earlier in the day. No issues with wound.) Objective Vital Signs - 12hr 05/11/18 05/11/18 05/11/18 05:24 05:32 05:45 Temperature 97.6 F Pulse Rate 84 Pulse Rate [ 121 H 113 H Bilateral Throughout] Respiratory 17 Rate Respiratory 24 20 Rate [Bilateral Throughout] Blood Pressure 144/72 O2 Sat by Pulse 93 Oximetry 05/11/18 05/11/18 05/11/18 07:19 07:20 07:33 Temperature Pulse Rate Pulse Rate [ 107 H 110 H Bilateral Throughout] Respiratory Rate Respiratory 26 H 26 H Rate [Bilateral Throughout] Blood Pressure O2 Sat by Pulse 98 Oximetry 05/11/18 05/11/18 05/11/18 09:07 09:15 09:52 Temperature 97.3 F L Pulse Rate 102 H 101 H Pulse Rate [ Bilateral Throughout] Respiratory 24 22 Rate Respiratory Rate [Bilateral Throughout] Blood Pressure 163/97 163/98 O2 Sat by Pulse 97 Oximetry - General physical appearance no distress, no pain, other (appears comfortable) - Respiratory normal expansion, normal respiratory effort - Labs 05/10/18 05:48 05/11/18 04:41 Diabetes panel 05/11/18 Range/Units 04:41 Sodium 138 (137-145) mmol/L Potassium 3.8 (3.6-5.0) mmol/L Chloride 108.9 H (98-107) mmol/L Carbon Dioxide 17 L (22-30) mmol/L BUN 15 (7-17) mg/dL Creatinine 0.5 L (0.7-1.2) mg/dL Glucose 144 H (65-100) mg/dL Calcium 6.9 L (8.4-10.2) mg/dL Calcium panel 05/11/18 Range/Units 04:41 Calcium 6.9 L (8.4-10.2) mg/dL Pituitary panel 05/11/18 Range/Units 04:41 Sodium 138 (137-145) mmol/L Potassium 3.8 (3.6-5.0) mmol/L Chloride 108.9 H (98-107) mmol/L Carbon Dioxide 17 L (22-30) mmol/L BUN 15 (7-17) mg/dL Creatinine 0.5 L (0.7-1.2) mg/dL Glucose 144 H (65-100) mg/dL Calcium 6.9 L (8.4-10.2) mg/dL Adrenal panel 05/11/18 Range/Units 04:41 Sodium 138 (137-145) mmol/L Potassium 3.8 (3.6-5.0) mmol/L Chloride 108.9 H (98-107) mmol/L Carbon Dioxide 17 L (22-30) mmol/L BUN 15 (7-17) mg/dL Creatinine 0.5 L (0.7-1.2) mg/dL Glucose 144 H (65-100) mg/dL Calcium 6.9 L (8.4-10.2) mg/dL
--- NOTE | 2018-05-11 13:46 | Progress Note ---
Assessment and Plan Cultures: 05/06/2018 blood culture: Enteroccocus avium, Clostridium ramosum 05/07/2018 urine culture: no growth to date 05/07/2018 blood culture: no growth 05/10/2018 wound culture: in progress A/P: 87-year-old female with prior CVA, right-sided hemiplegia, if he is here, CHF, diabetes mellitus, vascular dementia who is currently a detention resident admitted with: 1) Sepsis: Leukocytosis possibly secondary to bacteremia, urinary tract infection and infected sacral decubitus ulcer. 2) Urinary tract infection: IV antibiotics as above. culture with no growth, possibly due to already receiving antibiotics 3) Enteroccocus avium and Clostridium bacteremia: source, probably infected sacral decubitus that is now s/p debridement at bedside on 05/10/2018. Repeat blood cultures negative. TTE limited, but shows no valvular vegetation. Continues on Unasyn and Vancomycin. Of note, Enterococcus avium was penicilling resistant but vancomycin susceptible. 4) Acute respiratory failure: remains on O2. 5) Advanced dementia: bedbound and non verbal. Poor prognosis, consider palliative care/hospice. 6) Type 2 diabetes mellitus: uncontrolled Recs: Continue IV Unasyn 3 gms q6 hrs, D3 Continue IV vancomycin, with PK based dosing Continue wound care Tentative plan will be 14 days of IV abx from negative blood cultures Shannon Campos MD [facility] C: [phone] O: [phone] F: [phone] Subjective Date of service: 05/11/18 Principal diagnosis: afib Interval history: no fever. remains non verbal. lying in bed with no agitation. ROS cannot be obtained. Objective - Exam Narrative Exam: Physical Exam: Constitutional: awake, non verbal, no distress Head, Ears, Nose: Normocephalic, atraumatic. External ears, nose normal Eyes: Conjunctivae/corneas clear. No icterus. No ptosis. Neck: Supple, no meningeal signs Oral: mucosa dry, tongue coated with plaque Cardiovascular: S1, S2 normal. Respiratory: Good air entry, clear to auscultation bilaterally GI: Soft, non-tender; bowel sounds normal. No peritoneal signs. Gtube + Musculoskeletal: No pedal edema, no cyanosis. Sacral dressing + Skin: No rash or abscess Hem/Lymphatic: No palpable cervical or supraclavicular nodes. No lymphangitis Psych: no agitation Neurological: awake, non verbal, bedbound - Constitutional Vitals: Vital Signs Temp Pulse Resp BP Pulse Ox 97.3 F L 101 H 22 163/98 97 05/11/18 09:07 05/11/18 09:15 05/11/18 09:52 05/11/18 09:15 05/11/18 09:07 Temperature -Last 24 Hours Temperature 97.3 F Temperature 97.6 F Temperature 98.8 F - Labs CBC & Chem 7: 05/10/18 05:48 05/11/18 04:41 Labs: Abnormal lab results 05/10/18 05/11/18 05/11/18 Range/Units 18:46 01:06 04:41 Chloride 108.9 H (98-107) mmol/L Carbon Dioxide 17 L (22-30) mmol/L Creatinine 0.5 L (0.7-1.2) mg/dL Glucose 144 H (65-100) mg/dL POC Glucose 135 H 155 H (70-105) Calcium 6.9 L (8.4-10.2) mg/dL 05/11/18 05/11/18 Range/Units 05:24 12:24 Chloride (98-107) mmol/L Carbon Dioxide (22-30) mmol/L Creatinine (0.7-1.2) mg/dL Glucose (65-100) mg/dL POC Glucose 187 H 220 H (70-105) Calcium (8.4-10.2) mg/dL
--- NOTE | 2018-05-11 16:16 | Progress Note ---
Assessment and Plan Assessment and plan: Patient is a 87 yo woman from [facility] with a plethora of end stage Co-morbidities including 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 Hospice was recommended but not chosen. Now, she presents back to [facility] ED with SOB, elevated temperature, hypotension and potassium level of 6.3. She has been admitted to the ICU. Clinically, patie nt looks gravely ill. * pCXR Impression: Interval improvement of CHF but new patch opacities in the right lung base are suspicious for pneumonia. * UA with >180 WBC and positive LE * Enteroccocus Avium Bacteremia in blood cultures Acute respiratory failure, likely from PNA most likely from aspiration: duo nebs, bipap as needed, start iv abx, consulted pulmonary Severe sepsis possible from RLL aspiration pneumonia, UTI and infected sacral decubitus wound Infected unstageable sacral wound, poa: Gen. Surgery wants to take to surgery tomorrow, I called Cardiology for pre-op risk assessment Enteroccocus Avium Bacteremia, possibly from sacral wound. 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 fib now RVR, off anticoagulation due to h/o GI bleed History of CVA with residual right sided weakness and status post PEG placement: PEG care, tube feeding per protocol, cont aspirin and statin Anemia, with h/o GI bleed, monitor H/H H/o Hypertension; hypotensive resolved Dyslipidemia, cont statin Type 2 diabetes mellitus, Accu-Chek sliding scale coverage and TF diet and insulin as needed Hypothyroidism; continue Synthroid closely monitor DVT prophylaxis; lovenox Code; full CODE STATUS Very poor prognosis, multiple discussion with sonVanessa regarding my recommendation for Hospice. Patient is to ill for OR, still with AFib with RVR, 130s, tachypneic, and she was hypotensive overnight, d/w Dr. Brown. PICC line placed for assisted abx Disposition: continue inpatient care, once heart rate is controlled then d/c back to [place] with picc and abx. Probably thru the weekend because blood cultures finalized yet History Interval history: Patient was seen and examined. Follow-up on current diagnosis of respiratory failure and hypotension. Patient is nonverbal at bedside. Imaging, nursing note, chart, labs and old chart reviewed. Discussed with family at bedside. Hospitalist Physical - Physical exam Narrative exam: Gen: gravely ill, moderate increase in accessory muscles, eyes opened but not fo cus, green Vm HEENT: NCAT, EOMI, PERRL, OP dry Neck: supple, no adenopathy, no thyromegaly, no JVD CVS/Heart: Regular tachycardia normal S1S2, pulses present bilaterally Chest/Lungs: diminished bs bilaterally, Symmetrical chest expansion, poor air entry bilaterally GI/Abdomen: soft, NTND, good bowel sounds, no guarding or rebound /Bladder: no suprapubic tenderness, no CVA or paraspinal tenderness Extermity/Skin: Wound consult for sacral wound. Wound measured at 5.0x6.0x0.1. Scant drainage noticed to the wound. No odor noticed to the wound. Wound cleansed with wound cleanser, hydrogel dressing apply, wound covered with 4x4 gauze, and adhesive sacral foam dressing. Dr Brown assessed the wound and is plaining to debrided the wound in the OR tommorrow. MSK: contracted and atrophic legs without movement Neuro: CN 2-12 grossly intact, no new focal deficits Psych: nonverbal, appears confused and unfocused - Constitutional Vitals: Temp Pulse Resp BP Pulse Ox 97.2 F L 95 H 20 107/63 99 05/11/18 14:33 05/11/18 14:33 05/11/18 14:33 05/11/18 14:33 05/11/18 14:33 General appearance: Present: other (lethargic, nonverbal) Results - Labs CBC & Chem 7: 05/10/18 05:48 05/11/18 04:41 Labs: Laboratory Last Values WBC 18.8 K/mm3 (4.5-11.0) H 05/10/18 05:48 RBC 2.59 M/mm3 (3.65-5.03) L 05/10/18 05:48 Hgb 7.6 gm/dl (10.1-14.3) L 05/10/18 05:48 Hct 24.7 % (30.3-42.9) L 05/10/18 05:48 MCV 95 fl (79-97) 05/10/18 05:48 MCH 29 pg (28-32) 05/10/18 05:48 MCHC 31 % (30-34) 05/10/18 05:48 RDW 19.2 % (13.2-15.2) H 05/10/18 05:48 Plt Count 219 K/mm3 (140-440) 05/10/18 05:48 Lymph % (Auto) 9.3 % (13.4-35.0) L 05/07/18 04:28 Ada % (Auto) 4.6 % (0.0-7.3) 05/07/18 04:28 Eos % (Auto) 0.1 % (0.0-4.3) 05/07/18 04:28 Baso % (Auto) 1.0 % (0.0-1.8) 05/07/18 04:28 Lymph # 1.7 K/mm3 (1.2-5.4) 05/07/18 04:28 Ada # 0.8 K/mm3 (0.0-0.8) 05/07/18 04:28 Eos # 0.0 K/mm3 (0.0-0.4) 05/07/18 04:28 Baso # 0.2 K/mm3 (0.0-0.1) H 05/07/18 04:28 Add Manual Diff Complete 05/09/18 00:17 Total Counted 100 05/09/18 00:17 Seg Neutrophils % 85.0 % (40.0-70.0) H 05/07/18 04:28 Seg Neuts % (Manual) 83.0 % (40.0-70.0) H 05/09/18 00:17 Band Neutrophils % 2.0 % 05/09/18 00:17 Lymphocytes % (Manual) 13.0 % (13.4-35.0) L 05/09/18 00:17 Reactive Lymphs % (Man) 1.0 % 05/09/18 00:17 Monocytes % (Manual) 0 % (0.0-7.3) 05/09/18 00:17 Eosinophils % (Manual) 0 % (0.0-4.3) 05/09/18 00:17 Basophils % (Manual) 0 % (0.0-1.8) 05/09/18 00:17 Metamyelocytes % 1.0 % 05/09/18 00:17 Myelocytes % 0 % 05/09/18 00:17 Promyelocytes % 0 % 05/09/18 00:17 Blast Cells % 0 % 05/09/18 00:17 Nucleated RBC % Not Reportable 05/09/18 00:17 Seg Neutrophils # 15.4 K/mm3 (1.8-7.7) H 05/07/18 04:28 Seg Neutrophils # Man 13.8 K/mm3 (1.8-7.7) H 05/09/18 00:17 Band Neutrophils # 0.3 K/mm3 05/09/18 00:17 Lymphocytes # (Manual) 2.2 K/mm3 (1.2-5.4) 05/09/18 00:17 Abs React Lymphs (Man) 0.2 K/mm3 05/09/18 00:17 Monocytes # (Manual) 0.0 K/mm3 (0.0-0.8) 05/09/18 00:17 Eosinophils # (Manual) 0.0 K/mm3 (0.0-0.4) 05/09/18 00:17 Basophils # (Manual) 0.0 K/mm3 (0.0-0.1) 05/09/18 00:17 Metamyelocytes # 0.2 K/mm3 05/09/18 00:17 Myelocytes # 0.0 K/mm3 05/09/18 00:17 Promyelocytes # 0.0 K/mm3 05/09/18 00:17 Blast Cells # 0.0 K/mm3 05/09/18 00:17 WBC Morphology Not Reportable 05/09/18 00:17 Hypersegmented Neuts Not Reportable 05/09/18 00:17 Hyposegmented Neuts Not Reportable 05/09/18 00:17 Hypogranular Neuts Not Reportable 05/09/18 00:17 Smudge Cells Not Reportable 05/09/18 00:17 Toxic Granulation Not Reportable 05/09/18 00:17 Toxic Vacuolation Not Reportable 05/09/18 00:17 Dohle Bodies Not Reportable 05/09/18 00:17 Pelger-Huet Anomaly Not Reportable 05/09/18 00:17 Rene Rods Not Reportable 05/09/18 00:17 Platelet Estimate Appears normal 05/09/18 00:17 Clumped Platelets Not Reportable 05/09/18 00:17 Plt Clumps, EDTA Not Reportable 05/09/18 00:17 Large Platelets Not Reportable 05/09/18 00:17 Giant Platelets Not Reportable 05/09/18 00:17 Platelet Satelliting Not Reportable 05/09/18 00:17 Plt Morphology Comment Not Reportable 05/09/18 00:17 RBC Morphology Not Reportable 05/09/18 00:17 Dimorphic RBCs Not Reportable 05/09/18 00:17 Polychromasia 1+ 05/09/18 00:17 Hypochromasia 1+ 05/09/18 00:17 Poikilocytosis Not Reportable 05/09/18 00:17 Anisocytosis 1+ 05/09/18 00:17 Microcytosis Not Reportable 05/09/18 00:17 Macrocytosis Not Reportable 05/09/18 00:17 Spherocytes Not Reportable 05/09/18 00:17 Pappenheimer Bodies Not Reportable 05/09/18 00:17 Sickle Cells Not Reportable 05/09/18 00:17 Target Cells 1+ 05/09/18 00:17 Tear Drop Cells Not Reportable 05/09/18 00:17 Ovalocytes 2+ 05/09/18 00:17 Helmet Cells Not Reportable 05/09/18 00:17 Maldonado-Home Bodies Not Reportable 05/09/18 00:17 Stuart Rings Not Reportable 05/09/18 00:17 Miller Cells Not Reportable 05/09/18 00:17 Bite Cells Not Reportable 05/09/18 00:17 Crenated Cell Not Reportable 05/09/18 00:17 Elliptocytes 1+ 05/09/18 00:17 Acanthocytes (Spur) Not Reportable 05/09/18 00:17 Rouleaux Not Reportable 05/09/18 00:17 Hemoglobin C Crystals Not Reportable 05/09/18 00:17 Schistocytes Not Reportable 05/09/18 00:17 Malaria parasites Not Reportable 05/09/18 00:17 Ajay Bodies Not Reportable 05/09/18 00:17 Hem Pathologist Commnt No 05/09/18 00:17 APTT 27.6 Sec. (24.2-36.6) 05/06/18 08:25 POC ABG pH 7.478 (7.35-7.45) H 05/06/18 10:46 POC ABG pCO2 28.1 (35-45) L 05/06/18 10:46 POC ABG pO2 164 (80-105) H 05/06/18 10:46 POC ABG HCO3 20.8 05/06/18 10:46 POC ABG Total CO2 22 05/06/18 10:46 POC ABG O2 Sat 100 05/06/18 10:46 POC ABG Base Excess -3 05/06/18 10:46 FiO2 35 % 05/06/18 10:46 Sodium 138 mmol/L (137-145) 05/11/18 04:41 Potassium 3.8 mmol/L (3.6-5.0) 05/11/18 04:41 Chloride 108.9 mmol/L (98-107) H 05/11/18 04:41 Carbon Dioxide 17 mmol/L (22-30) L 05/11/18 04:41 Anion Gap 16 mmol/L 05/11/18 04:41 BUN 15 mg/dL (7-17) 05/11/18 04:41 Creatinine 0.5 mg/dL (0.7-1.2) L 05/11/18 04:41 Estimated GFR > 60 ml/min 05/11/18 04:41 BUN/Creatinine Ratio 30 % 05/11/18 04:41 Glucose 144 mg/dL (65-100) H 05/11/18 04:41 POC Glucose 220 (70-105) H 05/11/18 12:24 Lactic Acid 5.30 mmol/L (0.7-2.0) H* 05/06/18 16:17 Calcium 6.9 mg/dL (8.4-10.2) L 05/11/18 04:41 Phosphorus 3.30 mg/dL (2.5-4.5) 05/06/18 11:03 Magnesium 2.40 mg/dL (1.7-2.3) H 05/08/18 06:07 Total Bilirubin 0.30 mg/dL (0.1-1.2) 05/06/18 08:25 AST 42 units/L (5-40) H 05/06/18 08:25 ALT 34 units/L (7-56) 05/06/18 08:25 Alkaline Phosphatase 93 units/L (35-129) 05/06/18 08:25 Troponin T 0.068 ng/mL (0.00-0.029) H 05/07/18 04:28 NT-Pro-B Natriuret Pep 4756 pg/mL (0-900) H 05/06/18 08:25 Total Protein 7.9 g/dL (6.3-8.2) 05/06/18 08:25 Albumin 3.0 g/dL (3.9-5) L 05/06/18 08:25 Albumin/Globulin Ratio 0.6 % 05/06/18 08:25 Prealbumin 0.111 g/L (0.200-0.400) L 05/06/18 11:03 Triglycerides 320 mg/dL (2-149) H 05/06/18 08:25 Cholesterol 124 mg/dL (50-199) 05/06/18 08:25 LDL Cholesterol Direct 52 mg/dL (50-130) 05/06/18 08:25 HDL Cholesterol 32 mg/dL (40-59) L 05/06/18 08:25 Cholesterol/HDL Ratio 3.87 % 05/06/18 08:25 Urine Color Yellow (Yellow) 05/06/18 10:37 Urine Turbidity Turbid (Clear) 05/06/18 10:37 Urine pH 7.0 (5.0-7.0) 05/06/18 10:37 Ur Specific [place] 1.008 (1.003-1.030) 05/06/18 10:37 Urine Protein 100 mg/dl mg/dL (Negative) 05/06/18 10:37 Urine Glucose (UA) Neg mg/dL (Negative) 05/06/18 10:37 Urine Ketones Neg mg/dL (Negative) 05/06/18 10:37 Urine Blood Mod (Negative) 05/06/18 10:37 Urine Nitrite Neg (Negative) 05/06/18 10:37 Urine Bilirubin Neg (Negative) 05/06/18 10:37 Urine Urobilinogen < 2.0 mg/dL (<2.0) 05/06/18 10:37 Ur Leukocyte Esterase Mod (Negative) 05/06/18 10:37 Urine WBC (Auto) > 182.0 /HPF (0.0-6.0) H 05/06/18 10:37 Urine RBC (Auto) 56.0 /HPF (0.0-6.0) 05/06/18 10:37 U Epithel Cells (Auto) 7.0 /HPF (0-13.0) 05/06/18 10:37 Urine Bacteria (Auto) 4+ /HPF (Negative) 05/06/18 10:37 Urine WBC Clumps 3+ /HPF 05/06/18 10:37 Urine Mucus 3+ /HPF 05/06/18 10:37 Vancomycin Trough 10.9 ug/mL (5.0-20.0) 05/11/18 00:11 Digoxin 0.8 ng/mL (0.9-2.0) L 05/08/18 06:07 Nutrition/Malnutrition Assess - Dietary Evaluation Nutrition/Malnutrition Findings: Nutrition Notes Start: 05/06/18 15:02 Freq: Status: Active Protocol: Document 05/11/18 15:44 RM (Rec: 05/11/18 15:49 RM [id number]) Nutrition Notes Initial or Follow up Reassessment Current Diagnosis Diabetes Sepsis Hypertension Respiratory Failure Stroke Other Pertinent Diagnosis RLL pneu, severe dementia, sacral wound Current Diet NPO Labs/Tests Na 138 Pertinent Medications Reviewed Height 5 ft Weight 48.9 kg Mineral Body Weight (kg) 45.45 BMI 21.0 Subjective/Other Information Observed Glucerna 1.2 infusing at 45 ml/hr. Per nurse pt is tolerating TF. Percent of energy/protein needs met: 88%/100% Burn Absent Trauma Absent #1 Nutrition Diagnosis Inadequate oral intake Diagnosis Progress(for reassessment Continues documentation) Is patient on ventilator? No Is Patient Ambulatory and/or Out of Bed No REE-([place]-[facility] [facility]-confined to bed) 1016.460 Kcal/Kg value to use for calculation 30 Approximate Energy Requirements Using 1467 kcal/Kg Calculation Used for Recommendations Kcal/kg Additional Notes Pro needs 1.5-1.7g/k-83g/ day Fluid needs 1ml/kcal Nutrition Intervention Nutrition Support: Glucerna 1.2 at 45ml/hr with water flush of 75 ml q4h. Kcal 1,296 Protein (gm) 65 Carbohydrates (gm) 124 Fat (gm) 65 Fluid (mL) 869 Fiber (gm) 17 Goal #1 TF tolerance Goal #2 TF to continue to meet at least 75% of energy and pro needs Anticipated Discharge Needs: Continue Glucerna 1.2 (or equivalent) at 45ml/hr with 75ml water flush q4h Follow-Up By: 05/17/18 Additional Comments Follow for TF tolerance
[2018-05-11] MEDS ORDERED: VANCOMYCIN/NS 1 GM/250 ML 1 GM/250 ML BAG IV SCH (22:00)
[2018-05-11] MEDS: PRAVACHOL PO SCH (22:18)
[2018-05-12] MEDS: REGLAN PO SCH ×3 (00:38→13:57)
[2018-05-12] MEDS: UNASYN/NS 3 GM/100 ML 3 GM/100 ML BAG IV SCH ×3 (00:38→13:57)
[2018-05-12] MEDS: HumuLIN R SUB-Q SCH ×3 (00:38→13:56)
[2018-05-12] MEDS: DUONEB *Not for PRN Use IH SCH ×3 (02:14→13:34)
[2018-05-12] MEDS: TYLENOL PO PRN (04:04)
[2018-05-12 05:38] LABS: Albumin 1.6 g/dL (3.9-5); BUN/Creatinine Ratio 28; Blood Urea Nitrogen 14 mg/dL (7-17); Calcium 7.2 mg/dL (8.4-10.2); Hemolysis Index 279
[2018-05-12] MEDS: SYNTHROID PO SCH (05:57)
[2018-05-12 06:02] LABS: Alanine Aminotransferase 33 units/L (7-56)
[2018-05-12] MEDS ORDERED: MORPHINE IV PRN (10:15)
[2018-05-12] MEDS: PROAMATINE PO SCH ×2 (10:17→13:56)
[2018-05-12] MEDS: FEOSOL PO SCH (10:17)
[2018-05-12] MEDS: LOPRESSOR PO SCH ×2 (10:18→14:09)
[2018-05-12] MEDS: ARICEPT PO SCH (10:21)
[2018-05-12] MEDS: PREVACID SOLUTAB FEEDTUBE SCH (10:23)
[2018-05-12] MEDS: CORDARONE 900 MG in D5W 482 ML IV SCH (10:30)
[2018-05-12 11:16] LABS: Basophils % (Auto) 0.3 % (0.0-1.8); Eosinophils # (Auto) 0.3 K/mm3 (0.0-0.4); Hematocrit 25.7 % (30.3-42.9); Hemoglobin 7.9 gm/dl (10.1-14.3); Lymphocytes % (Auto) 6.3 % (13.4-35.0); Mean Corpuscular HGB Conc 31 % (30-34); Mean Corpuscular Volume 94 fl (79-97); Monocytes # (Auto) 0.7 K/mm3 (0.0-0.8); Monocytes % (Auto) 4.4 % (0.0-7.3); Platelet Count 296 K/mm3 (140-440); Red Blood Count 2.73 M/mm3 (3.65-5.03); Red Cell Distribution Width 18.6 % (13.2-15.2)
[2018-05-12 14:09] VITALS: BP 122/66
--- NOTE | 2018-05-12 15:44 | Progress Note ---
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 Hospice was recommended but not chosen. Now, she presents back to [facility] ED with SOB, elevated temperature, hypotension and potassium level of 6.3. She has been admitted to the ICU. Clinically, patie nt looks gravely ill. * pCXR Impression: Interval improvement of CHF but new patch opacities in the right lung base are suspicious for pneumonia. * UA with >180 WBC and positive LE * Enteroccocus Avium Bacteremia in blood cultures Acute respiratory failure, likely from PNA most likely from aspiration: duo nebs, bipap as needed, start iv abx, consulted pulmonary Severe sepsis possible from RLL aspiration pneumonia, UTI and infected sacral decubitus wound Infected unstageable sacral wound, poa: Gen. Surgery wants to take to surgery tomorrow, I called Cardiology for pre-op risk assessment Enteroccocus Avium Bacteremia, possibly from sacral wound. 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 fib now RVR, off anticoagulation due to h/o GI bleed History of CVA with residual right sided weakness and status post PEG placement: PEG care, tube feeding per protocol, cont aspirin and statin Anemia, with h/o GI bleed, monitor H/H H/o Hypertension; hypotensive resolved Dyslipidemia, cont statin Type 2 diabetes mellitus, Accu-Chek sliding scale coverage and TF diet and insulin as needed Hypothyroidism; continue Synthroid closely monitor DVT prophylaxis; lovenox Code; changed to DNR Very poor prognosis, multiple discussion with sonVanessa regarding my recommendation for Hospice. Patient is to ill for OR, still with AFib with RVR, 130s, tachypneic, and she was hypotensive overnight, d/w Dr. Brown. PICC line placed for alf abx Disposition: continue inpatient care, once heart rate is controlled then d/c back to [place] with picc and abx. Probably thru the weekend because blood cultures finalized yet Met with 2 sons and they see have gravely ill she is and they made her DNR History Interval history: Patient was seen and examined. Follow-up on current diagnosis of respiratory failure and hypotension. Patient is nonverbal at bedside. Imaging, nursing note, chart, labs and old chart reviewed. Discussed with family at bedside. Hospitalist Physical - Physical exam Narrative exam: Gen: gravely ill, moderate increase in accessory muscles, eyes opened but not focus, green Vm HEENT: NCAT, EOMI, PERRL, OP dry Neck: supple, no adenopathy, no thyromegaly, no JVD CVS/Heart: Regular tachycardia normal S1S2, pulses present bilaterally Chest/Lungs: diminished bs bilaterally, Symmetrical chest expansion, poor air entry bilaterally GI/Abdomen: soft, NTND, good bowel sounds, no guarding or rebound /Bladder: no suprapubic tenderness, no CVA or paraspinal tenderness Extermity/Skin: Wound consult for sacral wound. Wound measured at 5.0x6.0x0.1. Scant drainage noticed to the wound. No odor noticed to the wound. Wound cleansed with wound cleanser, hydrogel dressing apply, wound covered with 4x4 gauze, and adhesive sacral foam dressing. Dr Brown assessed the wound and is plaining to debrided the wound in the OR tommorrow. MSK: contracted and atrophic legs without movement Neuro: CN 2-12 grossly intact, no new focal deficits Psych: nonverbal, appears confused and unfocused - Constitutional Vitals: Temp Pulse Resp BP Pulse Ox 97.4 F L 92 H 28 H 122/66 100 05/12/18 08:04 05/12/18 14:09 05/12/18 13:45 05/12/18 14:09 05/12/18 08:04 General appearance: Present: other (lethargic, nonverbal) Results - Labs CBC & Chem 7: 05/12/18 11:09 05/12/18 04:53 Labs: Laboratory Last Values WBC 15.8 K/mm3 (4.5-11.0) H 05/12/18 11:09 RBC 2.73 M/mm3 (3.65-5.03) L 05/12/18 11:09 Hgb 7.9 gm/dl (10.1-14.3) L 05/12/18 11:09 Hct 25.7 % (30.3-42.9) L 05/12/18 11:09 MCV 94 fl (79-97) 05/12/18 11:09 MCH 29 pg (28-32) 05/12/18 11:09 MCHC 31 % (30-34) 05/12/18 11:09 RDW 18.6 % (13.2-15.2) H 05/12/18 11:09 Plt Count 296 K/mm3 (140-440) 05/12/18 11:09 Lymph % (Auto) 6.3 % (13.4-35.0) L 05/12/18 11:09 Citrus % (Auto) 4.4 % (0.0-7.3) 05/12/18 11:09 Eos % (Auto) 2.0 % (0.0-4.3) 05/12/18 11:09 Baso % (Auto) 0.3 % (0.0-1.8) 05/12/18 11:09 Lymph # 1.0 K/mm3 (1.2-5.4) L 05/12/18 11:09 Citrus # 0.7 K/mm3 (0.0-0.8) 05/12/18 11:09 Eos # 0.3 K/mm3 (0.0-0.4) 05/12/18 11:09 Baso # 0.0 K/mm3 (0.0-0.1) 05/12/18 11:09 Add Manual Diff Complete 05/09/18 00:17 Total Counted 100 05/09/18 00:17 Seg Neutrophils % 87.0 % (40.0-70.0) H 05/12/18 11:09 Seg Neuts % (Manual) 83.0 % (40.0-70.0) H 05/09/18 00:17 Band Neutrophils % 2.0 % 05/09/18 00:17 Lymphocytes % (Manual) 13.0 % (13.4-35.0) L 05/09/18 00:17 Reactive Lymphs % (Man) 1.0 % 05/09/18 00:17 Monocytes % (Manual) 0 % (0.0-7.3) 05/09/18 00:17 Eosinophils % (Manual) 0 % (0.0-4.3) 05/09/18 00:17 Basophils % (Manual) 0 % (0.0-1.8) 05/09/18 00:17 Metamyelocytes % 1.0 % 05/09/18 00:17 Myelocytes % 0 % 05/09/18 00:17 Promyelocytes % 0 % 05/09/18 00:17 Blast Cells % 0 % 05/09/18 00:17 Nucleated RBC % Not Reportable 05/09/18 00:17 Seg Neutrophils # 13.7 K/mm3 (1.8-7.7) H 05/12/18 11:09 Seg Neutrophils # Man 13.8 K/mm3 (1.8-7.7) H 05/09/18 00:17 Band Neutrophils # 0.3 K/mm3 05/09/18 00:17 Lymphocytes # (Manual) 2.2 K/mm3 (1.2-5.4) 05/09/18 00:17 Abs React Lymphs (Man) 0.2 K/mm3 05/09/18 00:17 Monocytes # (Manual) 0.0 K/mm3 (0.0-0.8) 05/09/18 00:17 Eosinophils # (Manual) 0.0 K/mm3 (0.0-0.4) 05/09/18 00:17 Basophils # (Manual) 0.0 K/mm3 (0.0-0.1) 05/09/18 00:17 Metamyelocytes # 0.2 K/mm3 05/09/18 00:17 Myelocytes # 0.0 K/mm3 05/09/18 00:17 Promyelocytes # 0.0 K/mm3 05/09/18 00:17 Blast Cells # 0.0 K/mm3 05/09/18 00:17 WBC Morphology Not Reportable 05/09/18 00:17 Hypersegmented Neuts Not Reportable 05/09/18 00:17 Hyposegmented Neuts Not Reportable 05/09/18 00:17 Hypogranular Neuts Not Reportable 05/09/18 00:17 Smudge Cells Not Reportable 05/09/18 00:17 Toxic Granulation Not Reportable 05/09/18 00:17 Toxic Vacuolation Not Reportable 05/09/18 00:17 Dohle Bodies Not Reportable 05/09/18 00:17 Pelger-Huet Anomaly Not Reportable 05/09/18 00:17 Rene Rods Not Reportable 05/09/18 00:17 Platelet Estimate Appears normal 05/09/18 00:17 Clumped Platelets Not Reportable 05/09/18 00:17 Plt Clumps, EDTA Not Reportable 05/09/18 00:17 Large Platelets Not Reportable 05/09/18 00:17 Giant Platelets Not Reportable 05/09/18 00:17 Platelet Satelliting Not Reportable 05/09/18 00:17 Plt Morphology Comment Not Reportable 05/09/18 00:17 RBC Morphology Not Reportable 05/09/18 00:17 Dimorphic RBCs Not Reportable 05/09/18 00:17 Polychromasia 1+ 05/09/18 00:17 Hypochromasia 1+ 05/09/18 00:17 Poikilocytosis Not Reportable 05/09/18 00:17 Anisocytosis 1+ 05/09/18 00:17 Microcytosis Not Reportable 05/09/18 00:17 Macrocytosis Not Reportable 05/09/18 00:17 Spherocytes Not Reportable 05/09/18 00:17 Pappenheimer Bodies Not Reportable 05/09/18 00:17 Sickle Cells Not Reportable 05/09/18 00:17 Target Cells 1+ 05/09/18 00:17 Tear Drop Cells Not Reportable 05/09/18 00:17 Ovalocytes 2+ 05/09/18 00:17 Helmet Cells Not Reportable 05/09/18 00:17 Maldonado-Durand Bodies Not Reportable 05/09/18 00:17 [place] Rings Not Reportable 05/09/18 00:17 Ric Cells Not Reportable 05/09/18 00:17 Bite Cells Not Reportable 05/09/18 00:17 Crenated Cell Not Reportable 05/09/18 00:17 Elliptocytes 1+ 05/09/18 00:17 Acanthocytes (Spur) Not Reportable 05/09/18 00:17 Rouleaux Not Reportable 05/09/18 00:17 Hemoglobin C Crystals Not Reportable 05/09/18 00:17 Schistocytes Not Reportable 05/09/18 00:17 Malaria parasites Not Reportable 05/09/18 00:17 Ajay Bodies Not Reportable 05/09/18 00:17 Hem Pathologist Commnt No 05/09/18 00:17 APTT 27.6 Sec. (24.2-36.6) 05/06/18 08:25 POC ABG pH 7.478 (7.35-7.45) H 05/06/18 10:46 POC ABG pCO2 28.1 (35-45) L 05/06/18 10:46 POC ABG pO2 164 (80-105) H 05/06/18 10:46 POC ABG HCO3 20.8 05/06/18 10:46 POC ABG Total CO2 22 05/06/18 10:46 POC ABG O2 Sat 100 05/06/18 10:46 POC ABG Base Excess -3 05/06/18 10:46 FiO2 35 % 05/06/18 10:46 Sodium 139 mmol/L (137-145) 05/12/18 04:53 Potassium 4.9 mmol/L (3.6-5.0) D 05/12/18 04:53 Chloride 110.3 mmol/L (98-107) H 05/12/18 04:53 Carbon Dioxide 18 mmol/L (22-30) L 05/12/18 04:53 Anion Gap 16 mmol/L 05/12/18 04:53 BUN 14 mg/dL (7-17) 05/12/18 04:53 Creatinine 0.5 mg/dL (0.7-1.2) L 05/12/18 04:53 Estimated GFR > 60 ml/min 05/12/18 04:53 BUN/Creatinine Ratio 28 % 05/12/18 04:53 Glucose 166 mg/dL (65-100) H 05/12/18 04:53 POC Glucose 271 (70-105) H 05/12/18 13:50 Lactic Acid 5.30 mmol/L (0.7-2.0) H* 05/06/18 16:17 Calcium 7.2 mg/dL (8.4-10.2) L 05/12/18 04:53 Phosphorus 3.30 mg/dL (2.5-4.5) 05/06/18 11:03 Magnesium 2.40 mg/dL (1.7-2.3) H 05/08/18 06:07 Total Bilirubin 0.30 mg/dL (0.1-1.2) 05/12/18 04:53 AST 68 units/L (5-40) H 05/12/18 04:53 ALT 33 units/L (7-56) 05/12/18 04:53 Alkaline Phosphatase 15 units/L (35-129) L 05/12/18 04:53 Troponin T 0.068 ng/mL (0.00-0.029) H 05/07/18 04:28 NT-Pro-B Natriuret Pep 4756 pg/mL (0-900) H 05/06/18 08:25 Total Protein 5.8 g/dL (6.3-8.2) L 05/12/18 04:53 Albumin 1.6 g/dL (3.9-5) L 05/12/18 04:53 Albumin/Globulin Ratio 0.4 % 05/12/18 04:53 Prealbumin 0.111 g/L (0.200-0.400) L 05/06/18 11:03 Triglycerides 320 mg/dL (2-149) H 05/06/18 08:25 Cholesterol 124 mg/dL (50-199) 05/06/18 08:25 LDL Cholesterol Direct 52 mg/dL (50-130) 05/06/18 08:25 HDL Cholesterol 32 mg/dL (40-59) L 05/06/18 08:25 Cholesterol/HDL Ratio 3.87 % 05/06/18 08:25 Urine Color Yellow (Yellow) 05/06/18 10:37 Urine Turbidity Turbid (Clear) 05/06/18 10:37 Urine pH 7.0 (5.0-7.0) 05/06/18 10:37 Ur Specific [place] 1.008 (1.003-1.030) 05/06/18 10:37 Urine Protein 100 mg/dl mg/dL (Negative) 05/06/18 10:37 Urine Glucose (UA) Neg mg/dL (Negative) 05/06/18 10:37 Urine Ketones Neg mg/dL (Negative) 05/06/18 10:37 Urine Blood Mod (Negative) 05/06/18 10:37 Urine Nitrite Neg (Negative) 05/06/18 10:37 Urine Bilirubin Neg (Negative) 05/06/18 10:37 Urine Urobilinogen < 2.0 mg/dL (<2.0) 05/06/18 10:37 Ur Leukocyte Esterase Mod (Negative) 05/06/18 10:37 Urine WBC (Auto) > 182.0 /HPF (0.0-6.0) H 05/06/18 10:37 Urine RBC (Auto) 56.0 /HPF (0.0-6.0) 05/06/18 10:37 U Epithel Cells (Auto) 7.0 /HPF (0-13.0) 05/06/18 10:37 Urine Bacteria (Auto) 4+ /HPF (Negative) 05/06/18 10:37 Urine WBC Clumps 3+ /HPF 05/06/18 10:37 Urine Mucus 3+ /HPF 05/06/18 10:37 Vancomycin Trough 10.9 ug/mL (5.0-20.0) 05/11/18 00:11 Digoxin 0.8 ng/mL (0.9-2.0) L 05/08/18 06:07 Nutrition/Malnutrition Assess - Dietary Evaluation Nutrition/Malnutrition Findings: Nutrition Notes Start: 05/06/18 15:02 Freq: Status: Active Protocol: Document 05/11/18 15:44 RM (Rec: 05/11/18 15:49 RM [id number]) Nutrition Notes Initial or Follow up Reassessment Current Diagnosis Diabetes Sepsis Hypertension Respiratory Failure Stroke Other Pertinent Diagnosis RLL pneu, severe dementia, sacral wound Current Diet NPO Labs/Tests Na 138 Pertinent Medications Reviewed Height 5 ft Weight 48.9 kg [place] Body Weight (kg) 45.45 BMI 21.0 Subjective/Other Information Observed Glucerna 1.2 infusing at 45 ml/hr. Per nurse pt is tolerating TF. Percent of energy/protein needs met: 88%/100% Burn Absent Trauma Absent #1 Nutrition Diagnosis Inadequate oral intake Diagnosis Progress(for reassessment Continues documentation) Is patient on ventilator? No Is Patient Ambulatory and/or Out of Bed No REE-([facility]-confined to bed) 1016.460 Kcal/Kg value to use for calculation 30 Approximate Energy Requirements Using 1467 kcal/Kg Calculation Used for Recommendations Kcal/kg Additional Notes Pro needs 1.5-1.7g/k-83g/ day Fluid needs 1ml/kcal Nutrition Intervention Nutrition Support: Glucerna 1.2 at 45ml/hr with water flush of 75 ml q4h. Kcal 1,296 Protein (gm) 65 Carbohydrates (gm) 124 Fat (gm) 65 Fluid (mL) 869 Fiber (gm) 17 Goal #1 TF tolerance Goal #2 TF to continue to meet at least 75% of energy and pro needs Anticipated Discharge Needs: Continue Glucerna 1.2 (or equivalent) at 45ml/hr with 75ml water flush q4h Follow-Up By: 05/17/18 Additional Comments Follow for TF tolerance
--- NOTE | 2018-05-12 15:48 | Death Summary ---
Summary - Providers Date of service: 05/12/18 Consults: 05/06/18 11:00 Consult to Dietitian/Nutrition [CONS] Routine Physician Instructions: Assess nutrtn needs, initiate, modify, manage TF Reason For Exam: Reason for Consult: Write/Manage Tube Feeding Reason for Consult: Write/Manage Tube Feeding 05/07/18 05:49 Consult to Wound/ET Nurse [CONS] Routine Reason For Exam: wound eval 05/07/18 07:58 Consult to Physician [CONS] Routine Comment: Consulting Provider: KENROY ORNELAS Physician Instructions: i notified Reason For Exam: Septic shock 05/07/18 08:02 Consult to Physician [CONS] Routine Comment: Consulting Provider: CHANDLER RENDON Physician Instructions: Reason For Exam: elevated digoxin level, afib, elevated troponin, 05/09/18 09:07 Consult to PICC Line RN [CONS] Urgent Reason For Exam: picc line placement Type Line:: PICC Attending: ANABELL EMERY - summary Date of admission: 05/06/18 10:53 Date of : 05/12/18 Significant findings: Patient is a 87 yo woman from [facility] with a plethora of end stage Co-morbidities including 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 Hospice was recommended but not chosen. Now, she presents back to [facility] ED with SOB, elevated temperature, hypotension and potassium level of 6.3. She has been admitted to the ICU. Clinically, patient looks gravely ill. * pCXR Impression: Interval improvement of CHF but new patch opacities in the right lung base are suspicious for pneumonia. * UA with >180 WBC and positive LE * Enteroccocus Avium Bacteremia in blood cultures Acute respiratory failure, likely from PNA most likely from aspiration: duo nebs, bipap as needed, start iv abx, consulted pulmonary Severe sepsis possible from RLL aspiration pneumonia, UTI and infected sacral decubitus wound Infected unstageable sacral wound, poa: Gen. Surgery wants to take to surgery tomorrow, I called Cardiology for pre-op risk assessment Enteroccocus Avium Bacteremia, possibly from sacral wound. ID following, Picc line to [facility] abx Right LL Aspiration PNA: ID is following, continue abx Elevated troponin, chronically elevated, Cardiology following Hyperkalemia, resolved Hypernatremia resolved with free water: hold free water Severe dementia, supportive care, cont aricept A. fib now RVR, off anticoagulation due to h/o GI bleed History of CVA with residual right sided weakness and status post PEG placement: PEG care, tube feeding per protocol, cont aspirin and statin Anemia, with h/o GI bleed, monitor H/H H/o Hypertension; hypotensive resolved Dyslipidemia, cont statin Type 2 diabetes mellitus, Accu-Chek sliding scale coverage and TF diet and insulin as needed Hypothyroidism; continue Synthroid closely monitor DVT prophylaxis; lovenox Code; changed to DNR Very poor prognosis, multiple discussion with sonVanessa regarding my recommendation for Hospice. Patient is to ill for OR, still with AFib with RVR, 130s, tachypneic, and she was hypotensive overnight, d/w Dr. Brown. 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 Probably thru the weekend because blood cultures finalized yet Met with 2 sons and they see have gravely ill she is and they made her DNR this morning, she went into asystole @ 1450 today. I pronounced at 1500. She had no corneal or pupillary reflexes, pupil fixed, no breath sounds no heart tones, no gag. Time of : 1500 Cause of : Infection: Infected Decubitus Ulcer with Sepsis and Aspiration pneumonia
== END 2018-05-12 14:50 | DRG 853 ==
LOC: ED 07:54 → IMCU 10:53 → CC1 19:54 → 2B-ACE 05-07 15:15 → 4A 05-08 20:58
PROVIDERS: ADMIT Internal Medicine; ATTEND Internal Medicine
PROC: 5A09357 Assistance with Respiratory Ventilation, Less than 24 Consecutive Hours, Continuous Positive Airway Pressure (ICD-10-PCS; 2018-05-06)
PROC: 4A033R1 Measurement of Arterial Saturation, Peripheral, Percutaneous Approach (ICD-10-PCS; 2018-05-06)
PROC: 0JB70ZZ Excision of Back Subcutaneous Tissue and Fascia, Open Approach (ICD-10-PCS; principal; 2018-05-10)
PROC: 02HV33Z Insertion of Infusion Device into Superior Vena Cava, Percutaneous Approach (ICD-10-PCS; 2018-05-10)
DX: A41.81 Sepsis due to Enterococcus (principal); J69.0 Pneumonitis due to inhalation of food and vomit; J96.00 Acute respiratory failure, unspecified whether with hypoxia or hypercapnia; N17.0 Acute kidney failure with tubular necrosis; R65.21 Severe sepsis with septic shock; N39.0 Urinary tract infection, site not specified; I69.351 Hemiplegia and hemiparesis following cerebral infarction affecting right dominant side; E87.0 Hyperosmolality and hypernatremia; A41.89 Other specified sepsis; L89.150 Pressure ulcer of sacral region, unstageable; E87.5 Hyperkalemia; I11.0 Hypertensive heart disease with heart failure; I48.91 Unspecified atrial fibrillation; D64.9 Anemia, unspecified; E03.9 Hypothyroidism, unspecified; E11.9 Type 2 diabetes mellitus without complications; F01.50 Vascular dementia, unspecified severity, without behavioral disturbance, psychotic disturbance, mood disturbance, and anxiety; I08.0 Rheumatic disorders of both mitral and aortic valves; T46.0X5A Adverse effect of cardiac-stimulant glycosides and drugs of similar action, initial encounter; E78.5 Hyperlipidemia, unspecified; Z66 Do not resuscitate; I46.9 Cardiac arrest, cause unspecified; I69.320 Aphasia following cerebral infarction; Z79.82 Long term (current) use of aspirin; Z79.899 Other long term (current) drug therapy; Z93.1 Gastrostomy status; Y92.89 Other specified places as the place of occurrence of the external cause; Z74.01 Bed confinement status; Z79.4 Long term (current) use of insulin
CPT/HCPCS: 31720; 36415; 71045; 80048; 80053; 80061; 80162; 80202; 81001; 82140; 82803; 82962; 83735; 83880; 84100; 84134; 84484; 85007; 85025; 85027; 85730; 87040; 87075; 87076; 87086; 87116; 87186; 93005; 93010; 93308; 93321; 93325; 94640; 94760; 96361; 96365; 96368; 96372; 96375; G0378; A9270-GY; J0282; J0295; J0610; J0692; J1815; J2270; J2543; J3370; J7030; J7040; J7042; J7050; J7060